=== PATIENT | female | born 1935 | race Caucasian/White ===

== ENCOUNTER → 2016-12-31 | Outpatient (CLI) | payer MEDICARE, OTHER ==
[~2016-12-31] MED LIST: ALPR0.25 PO; AMLO1CAP31 PO; ASP81TEC PO; CATHETER FLUSH 10 ML SYR IV PRN; CHOL100011 PO; CLD600T PO; CLOP75TA PO; DCS100C PO; DICY10CA59 PO; DICY20TA57 PO; FLUT16SP22 NS; HYDR-707 PO; ISM30TCR PO; LEVE500T6 PO; LEVO500T69 PO; LISI1TAB6 PO; LORA10TA7 PO; LVT.05T PO; MECL25TA56 PO; MELA1TAB9 PO; MELO-198 PO; METR500T PO; MTP100TCR PO; NAPR-591 PO; NITR1PAT11 TD; OMEP-10 PO; ONDN4T PO; PANT40VI3 PO; PNT40TEC PO; PNV1TABL77 PO; RANO10003 PO; REGADENOSON 0.4 MG/5 ML SYR (LEXISCAN) IV ONE; SIMV20TA3 PO; SIMV40TA2 PO; SODI1GRA PO; SODIUM CHLORIDE 1 GM PO; SOLI5TAB4 PO; UBID10CA8 PO; ZLP10T PO
[2016-12-31 13:05] VITALS: BP 137/51
[2016-12-31 13:22] VITALS: BP 134/48
--- NOTE | 2017-01-01 06:47 | STRESS TEST ---
DATE OF SERVICE: 12/31/2016 LEXISCAN MYOVIEW STRESS TEST REPORT REFERRING PHYSICIAN: Dr. Longoria. Baseline heart rate is 55. Baseline blood pressure 129/64. Baseline EKG sinus rhythm with no ischemic changes. In summary, the patient was injected with 10.64 mCi of technetium-99 Myoview and the resting images were obtained. Then, the patient received 0.4 mg of Lexiscan followed by 29.3 mCi of technetium-99 Myoview. Throughout the test, there were no EKG changes. The resting and stress images were reviewed and compared in the short axis, horizontal long axis, and vertical long axis views. Review of the images showed fixed defect at the basal to mid inferior wall with no significant ischemia. SSS is 4. SDS is 0. TID value 1.07. On the gated images, the left ventricle appeared to be normal size with normal contractility, calculated ejection fraction 77%. CONCLUSION: 1. The patient tolerated Lexiscan well. 2. Fixed defect at the basal to mid inferior wall with no significant ischemia. 3. Normal left ventricular size with normal contractility, calculated ejection fraction 77%. 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
== END ==
LOC: CARD 10:54
PROVIDERS: ATTEND Internal Medicine Cardiovascular Disease
DX: I35.1 Nonrheumatic aortic (valve) insufficiency (principal); I35.8 Other nonrheumatic aortic valve disorders; I10 Essential (primary) hypertension; I25.119 Atherosclerotic heart disease of native coronary artery with unspecified angina pectoris; Z82.49 Family history of ischemic heart disease and other diseases of the circulatory system
CPT/HCPCS: 78452; 93017

== ENCOUNTER 2019-07-20 08:40 | Day surgery (SDC) | payer MEDICARE, MEDICAID ==
[2019-07-20] VITALS (11 sets, daily range): BP systolic 122–170; BP diastolic 52–87
[~2019-07-20] VITALS: Ht 152 cm; Wt 48.0 kg
[~2019-07-20 08:40] MED LIST changes: -CATHETER FLUSH 10 ML SYR IV PRN; -REGADENOSON 0.4 MG/5 ML SYR (LEXISCAN) IV ONE
[2019-07-20] MEDS ORDERED: NS IV 1000 ML 1,000 ML ONE (08:49)
[2019-07-20] MEDS ORDERED: HEParin (CATH LAB) 2,000 ML IV ONE (08:49)
[2019-07-20] MEDS ORDERED: LIDOCAINE 1% INJ 20 ML 20 ML VIAL ONE (08:49)
--- OUTSIDE RECORDS SUMMARY | 2019-07-20 08:52 | XMS REPORT ---
Author Author Docin Organization Docin Address [address] [address] Care Team Providers Care Casework Supervisor Name Role Phone BALA AUDRA Theodore Unavailable GARCIA, RUDI-JOSE Unavailable Unavailable GARCIA, RUDI-JOSE Unavailable Unavailable GARCIA, RUDI-JOSE Unavailable Unavailable NUZHAT VAZQUEZ Unavailable Unavailable PAONI, CHESTER Unavailable Unavailable PAONI, CHESTER Unavailable Unavailable RAFAELA, BASHAR Unavailable Unavailable RAFAELA, BASHAR Unavailable Unavailable RAFAELA, BASHAR Unavailable Unavailable BROWN, AUDRA Unavailable Unavailable BROWN, AUDRA Unavailable Unavailable BROWN, AUDRA Unavailable Unavailable BALA AGUILAR, AUDRA Unavailable Unavailable BALA AGUILAR, AUDRA Unavailable Unavailable AUDRA LONGORIA MD Unavailable Unavailable RAFAELA, BASHAR Unavailable Unavailable RAFAELA, BASHAR Unavailable Unavailable RAFAELA, BASHAR Unavailable Unavailable EDMONDS, LEE Unavailable Unavailable EDMONDS, LEE Unavailable Unavailable EDMONDS, LEE Unavailable Unavailable SISSY, TELMA Unavailable Unavailable LEISURE, LYNIETA Unavailable Unavailable LEISURE, LYNIETA Unavailable Unavailable BURGOS, JASON Unavailable Unavailable BURGOS, JASON Unavailable Unavailable BURGOS, JASON Unavailable Unavailable MARIANA HOWARD Unavailable Unavailable PAONI, CHESTER Unavailable Unavailable PAONI, CHESTER Unavailable Unavailable Allergies Normalized Allergy Reported Date of Reaction(s) Care Provider Facility Allergy Type classification allergen Allergy Onset Drug Allergy Quinolones ciprofloxacin OTHER, UNKNOWN TAKVITA KI DO Not Available (20 sources.) (antibiotic) (50798) DA (9 Unclassified Fish 07-17-2014 - no information BRETT RODRIGUEZ Not Available sources.) Containing MD ([id number]) Products Drug Allergy Iodine (and iodine OTHER, UNKNOWN ERICH CLEMENTE Not Available (20 sources.) Iodine (35546) containting drugs) Drug Allergy Sulfonamides Sulfonamides UNKNOWN REGINA RUSSO Not Available (22 sources.) (antibiotic) (Antibiotic) (77701) Medications Medication Ingredient Drug Dose Dates Status Sig Sig Care Class(es) (Normalized) (Original) Provid er no Acetaminoph no 03-19-20 no no no no information en information 19 - informat information infor mation name (1 source.) 03-20-20 ion (no 19 phone) 04-06-2018 no no no no name - information inform informat (no 05-06-2018 ation ion phone) no Albuterol beta2-Adren 03-19-20 no no no no information ergic - informat information information name (1 source.) Agonist 03-29-19 ion (no 20 phone) 03-19-2019 no no no no name - information inform informat (no 03-19-2019 ation ion phone) no amLODIPine Dihydropyri 10 mg 03-20-20 no no AMLO DIPINE no information Translation dine - informat information TAB 10 MG name (1 source.) s: [ Calcium 04-18-19 ion (NORVASC) 10 (n o AMLODIPINE Channel 20 10 phone) TAB 10 MG Matias (NORVASC)] 10 mg 04-06-2018 no no AMLODIPI no name - information inform NE TAB (no 05-05-2018 ation 10 MG phone) (NORVASC ) 10 10 no ASA 81MG no 81 mg 03-20-20 no no ASA 81MG n o information ENTERIC information informat information ENTE KEILA name (1 source.) COATED TAB 03-26-19 ion COATED TAB (no 81 MG (BABY 20 81 MG (BABY phone) ASPIRIN EC) ASPIRIN EC) 81 81 no AZITHROMYCI no 500 mg 03-19-20 no no no no information N VIAL INJ information informat informatio n information name (1 source.) 500 MG 03-26-19 ion (no (ZITHROMAX 20 phone) VIAL) no benazepril Angiotensin 20 mg 03-19-20 no no no no information Translation Converting - informat informatio n information name (1 source.) s: [ Enzyme 03-19-20 ion (no BENAZEPRIL Inhibitor 19 phone) TAB 20 MG (LOTENSIN)] 20 mg 04-06-2018 no no no no name - information inform informat (no 04-12-2018 ation ion phone) no Calcium no 04-06-19 no no calcium no information Carbonate information 19 - informat information ca rbonate name (1 source.) 05-05-19 ion (calcium (no 19 carbonate) phone) oral tablet,chewa ble 600 600 no CEFTRIAXONE no 03-19-20 no no no no information PREMIX IV information 19 - informat information in formation name (1 source.) BAG IV 1 03-26-19 ion (no GM/50CC 20 phone) (ROCEPHIN PREMIX IV BAG) no celecoxib Nonsteroida 100 mg 04-07-19 no no Celec oxib no information l 19 - informat information oral capsule name (1 source.) Anti-inflam 04-16-19 ion 100mg (no matory Drug 19 (Celebrex) phone) 100 100 no CoQ-10 no 03-20-20 no no CoQ-10 no information (coenzyme information 19 - informat information (c oenzyme name (1 source.) Q10) oral 03-26-19 ion Q10) oral (no capsule 20 capsule 300 phone) 300 03-20-2019 no no no no name - information inform informat (no 03-26-2019 ation ion phone) 04-06-2018 no no CoQ-10 no name - information inform (coenzym (no 05-05-2018 ation e Q10) phone) oral capsule 100 100 no Cranberry Non-Standar 04-06-19 no no Azo no information preparation dized Food 19 - informat information C ranberry name (1 source.) Allergenic 05-05-19 ion (cranberry (no Extract, 19 fruit phone) Non-Standar concentrate) dized Plant oral Allergenic tablet,chewa Extract ble 250 250 no FLUoxetine Serotonin 03-19-20 no no fluoxetine n o information Reuptake 19 - informat information (fluoxetine ) name (1 source.) Inhibitor 04-17-19 ion oral capsule (no 20 10 10 phone) 04-06-2018 no no fluoxeti no name - information inform ne (no 05-05-2018 ation (fluoxet phone) ine) oral capsule 10 10 no Furosemide Loop 20 mg 04-07-19 no no FUROSEMID E no information Diuretic 19 - informat information TAB 20 MG name (1 source.) 04-13-19 ion (LASIX) 20 (no 19 20 phone) no guaiFENesin no 600 mg 03-19-20 no no no no information information 19 - informat information informat ion name (1 source.) 03-26-19 ion (no 20 phone) no Lactated no 01-31-20 no no no no information Ringer's information 17 - informat information inf ormation name (1 source.) Solution 02-07-20 ion (no 17 phone) no LACTOBACILL no 03-19-20 no no no no information US BULGARIS information - informat informati on information name (1 source.) TAB 03-29-19 ion (no (LACTINEX 20 phone) BULGARIS) no Melatonin no 3 mg 03-19-20 no no MELATONIN no information Translation information - informat information TAB 3 MG name (1 source.) s: [ 03-25-19 ion (MELATONIN) (no MELATONIN 20 3 3 phone) TAB 3 MG (MELATONIN) ] 3 mg 03-19-2019 no no no no name - information inform informat (no 03-25-2019 ation ion phone) 3 mg 04-06-2018 no no no no name - information inform informat (no 05-06-2018 ation ion phone) no METOPROLOL- no 50 mg 03-19-20 no no METOPROL OL-X no information XL TAB 50 information 19 - informat information L TAB 50 MG name (1 source.) MG (TOPROL 03-26-19 ion (TOPROL XL) (no XL) 20 50 50 phone) no METOPROLOL- no 50 mg 04-07-19 no no METOPROL OL-X no information XL TAB 50 information - informat information L TAB 50 MG name (1 source.) MG (TOPROL 04-13-19 ion (TOPROL XL) (no XL) 19 50 50 phone) no Normal no 03-19-20 no no no no information saline information - informat information infor mation name (1 source.) Translation 04-03-19 ion (no s: [ NORMAL 20 phone) SALINE 1000CC IV BAG INJ 0.9 % (NS 1000CC IV BAG)] 03-19-2019 no no no no name - information inform informat (no 03-26-2019 ation ion phone) 04-06-2018 no no no no name - information inform informat (no 04-21-2018 ation ion phone) no ONDANSETRON no 03-19-20 no no no no information VIAL INJ 4 information - informat informatio n information name (1 source.) MG/2CC 12-28-20 ion (no (ZOFRAN 2CC 19 phone) VIAL) 04-06-2018 no no no no name - information inform informat (no 04-13-2018 ation ion phone) no ONDANSETRON no 04-05-19 no no no no information VIAL INJ 4 information 19 - informat informatio n information name (1 source.) MG/2CC 04-05-19 ion (no (ZOFRAN 2CC 19 phone) VIAL) no oxybutynin Cholinergic 5 mg 03-19-20 no no OXYB UTYNIN no information Muscarinic 19 - informat information TAB 5 MG name (1 source.) Antagonist 03-26-19 ion (DITROPAN) 5 (no 20 5 phone) 5 mg 04-06-2018 no no OXYBUTYN no name - information inform IN TAB 5 (no 05-05-2018 ation MG phone) (DITROPA N) 5 5 no Potassium no 10 mEq 04-06-19 no no POTASSIUM no information Chloride information - informat information CHL ORIDE TAB name (1 source.) 05-05-19 ion 10 MEQ (no 19 (K-DUR) 10 phone) 10 no no 04-06-19 no no no information vits-iron information - informat information vi ts-iron name (1 source.) fum-folic- 05-05-19 ion fum-folic- (no oral tablet 19 oral tablet phone) (Prenate) (Prenate) 1 1 no VITAMIN D-3 no 1000 04-06-19 no no VITAMIN D-3 no information TAB 1000 information [IU] - informat informati on TAB 1000 name (1 source.) UNITS 05-05-19 ion UNITS (no (VITAMIN 19 (VITAMIN phone) D-3) D-3) 1999 1999 Problems Active Problems Problem Normalized Date of Normalized Normalized Provider Fac ility Classification Problem(s) Problem Problem Problem Sta tus Onset/Resoluti Duration on Other Abnormal 06-20-2019 - Episodic Active [facility] nutritional; weight loss [facility] of endocrine; and [place] metabolic [facility] (36607) disorders (20 sources.) Adjustment Adjustment Chronic Active [facility] disorders (10 disorder with [facility] of sources.) depressed mood [place] Translations: [facility] ([id number]) [ ADJUSTMENT DISORDER WITH DEPRESSED MOOD] Anxiety Anxiety state, Chronic Active BENJAMIN RODRIGUEZ No t Available disorders (14 unspecified , (92395) sources.) Translations: [ GENERALIZED ANXIETY DISORDER, GENERALIZED ANXIETY DISORDER] 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 ALMA DELIA Sams JENNIFER Not Available atherosclerjarrell amaro heart , (60734) s and other disease of heart disease [place] (26 sources.) coronary artery with unspecified angina pectoris Translations: [ CORONARY ATHEROSCLEROSI S OF [place] CORON, ATHEROSCLEROTI C HEART DISEASE OF [place] CORONARY ARTERY WITHOUT ANGINA PECTORIS, CORONARY ATHEROSCLEROSI S OF [place] CORONARY ARTERY, ANGINA PECTORIS, UNSPECIFIED] Cardiac Bradycardia, 06-20-2019 - Episodic Active [facility] dysrhythmias unspecified [facility] of (20 sources.) [facility] (88620) Nonspecific Chest pain, 06-20-2019 - Episodic Active [facility] chest pain (24 unspecified [facility] of sources.) Translations: [place] [ UNSPECIFIED [facility] (47890) CHEST PAIN, OTHER CHEST PAIN] Other Constipation, Episodic Active [facility] ital gastrointestin unspecified [facility] of al disorders [place] (2 sources.) [facility] (83236) Allergic Diarrhea no information Active [facility] ital reactions (18 Translations: [facility] of sources.) [ ALLERGIC AND [place] DIETETIC [facility] (71709) GASTROENTERITI S AND COLITIS, DIARRHEA] Other Diarrhea, 06-20-2019 - Episodic Active [facility] gastrointestin unspecified [facility] of al disorders [place] (24 sources.) [facility] (48983) Diverticulosis Diverticulitis 06-20-2019 - Chronic Active [facility] and of colon [facility] of diverticulitis (without [place] (25 sources.) mention of [facility] (30706) hemorrhage) Translations: [ DIVERTICULITIS OF INTESTINE, PART UNSPECIFIED, WITHOUT PERFORATION OR ABSCESS WITHOUT BLEEDING] Genitourinary Dysuria Episodic Active TELMA Oteroi lalo symptoms and Translations: [facility] of ill-defined [ DYSURIA] [place] conditions ([place] ([address]) sources.) Other Erythema 06-20-2019 - Episodic Active [facility] inflammatory intertrigo [facility] of condition of [place] skin (33 [place] (48440) sources.) Esophageal Esophageal 06-20-2019 - Chronic [facility] Not Available disorders (22 reflux , (37620) sources.) Translations: [ GASTRO-ESOPHAG EAL REFLUX DISEASE WITH ESOPHAGITIS] Essential Essential 06-20-2019 - Chronic Active [facility] Not Available hypertension (primary) , (46859) (22 sources.) hypertension Translations: [ HYPERTENSION NOS, MALIGNANT ESSENTIAL HYPERTENSION] Other Fecal urgency 06-20-2019 - Episodic Active [facility] gastrointestin [facility] of al disorders [place] (25 sources.) [facility] (54460) Other Fecal urgency Episodic Active [facility] ital gastrointestin [facility] of al disorders [place] (5 sources.) [facility] (97038) Other Full Episodic Active [facility] gastrointestin incontinence [facility] of al disorders of feces [place] (2 sources.) [facility] (14962) Other Functional 06-20-2019 - Episodic Active [facility] gastrointestin diarrhea [facility] of al disorders [place] (25 sources.) [facility] (48399) Other Functional Episodic Active [facility] gastrointestin diarrhea [facility] of al disorders [place] (5 sources.) [facility] (47443) Disorders of Hyperlipidemia Chronic Active [facility] lipid , unspecified [facility] of metabolism (12 Translations: [place] sources.) [ OTHER AND [facility] (24931) UNSPECIFIED HYPERLIPIDEMIA ] Fluid and Hyposmolality 06-20-2019 - Episodic Active [facility] electrolyte and/or [facility] of disorders (20 hyponatremia [place] sources.) Translations: [facility] (24188) [ HYPOVOLEMIA, HYPO-OSMOLALIT Y AND HYPONATREMIA , HYPOVOLEMIA , HYPOSMOLALITY AND/OR HYPONATREMIA, HYPOSMOLALITY AND/OR HYPONATREMIA] Intestinal Infectious Episodic Active [facility] Hospit al infection (11 gastroenteriti [facility] of sources.) s and colitis, [place] unspecified [facility] (49929) 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 [facility] of al disorders [place] (9 sources.) [facility] (87385) 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 [facility] of al disorders with diarrhea [place] (29 sources.) County ([address]) Abdominal pain Left lower 06-20-2019 - Episodic Active [facility] (28 sources.) quadrant pain [facility] of Translations: [place] [ ABDOMINAL [place] (59976) PAIN, LEFT LOWER QUADRANT, ABDOMINAL PAIN, LEFT LOWER QUADRANT] Spondylosis; Low back pain 06-20-2019 - Episodic Active NUZHAT CAALES Not Available intervertebral Translations: (71039) disc [ LUMBAGO, disorders; DORSALGIA, other back UNSPECIFIED] problems (29 sources.) 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 [facility] (20 sources.) depressive [facility] of disorder, [place] single [facility] (75027) episode, unspecified Translations: [ DEPRESSIVE DISORDER, NOT ELSEWHERE CLASSIFIED] Nausea and Nausea Episodic Active [facility] vomiting (18 Translations: [place] [facility] of sources.) [ NAUSEA [place] ALONE, NAUSEA [facility] (22054) ALONE] Noninfectious Noninfective Episodic Active [facility] ospital gastroenteriti gastroenteriti [facility] of s (17 s and colitis, [place] sources.) unspecified [facility] (29134) Translations: [ OTHER AND UNSPECIFIED NONINFECTIOUS GASTROENTERITI S AND COLITIS] Heart valve Nonrheumatic 06-20-2019 - Chronic Active [facility] disorders (24 aortic (valve) [facility] of sources.) insufficiency [place] Translations: [facility] (42945) [ OTHER NONRHEUMATIC AORTIC VALVE DISORDER, AORTIC VALVE DISORDERS, NONRHEUMATIC AORTIC VALVE DISORDER, UNSPECIFIED, NONRHEUMATIC AORTIC (VALVE) INSUFFICIENCY] Malaise and Other fatigue 06-20-2019 - Episodic Active [facility] fatigue (20 Translations: [facility] of sources.) [ OTHER [place] MALAISE AND [facility] (35523) FATIGUE, OTHER MALAISE AND FATIGUE] Other Other Episodic Active [facility] inflammatory specified [facility] of condition of erythematous [place] skin (17 conditions County (19921) sources.) Other Pain in joint, Episodic Active [facility] pital non-traumatic pelvic region [facility] of joint and thigh [place] disorders (6 [place] (23362) sources.) Other Pain in left Episodic Active [facility] non-traumatic hip [facility] of joint [place] disorders ([place] (74573) sources.) Parkinson`s Parkinson's 06-20-2019 - Chronic Active [facility] disease (23 disease [facility] of sources.) Translations: [place] [ PARALYSIS [facility] (10419) AGITANS] Pneumonia Pneumonia, Episodic Active [facility] (except that unspecified [facility] of caused by organism [place] tuberculosis Translations: County (20227) or sexually [ PNEUMONIA, transmitted ORGANISM disease) (22 UNSPECIFIED] sources.) Chronic ulcer Pressure ulcer 06-20-2019 - Chronic Active [facility] of skin (20 of sacral [facility] of sources.) region, [place] unspecified [facility] (32677) stage Translations: [ PRESSURE ULCER, LOWER BACK] Pulmonary Primary Chronic Active [facility] heart disease pulmonary [facility] of (12 sources.) hypertension [place] Translations: [facility] (10744) [ PRIMARY PULMONARY HYPERTENSION] 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, [facility] of disorders (18 bilateral [place] sources.) [facility] (61192) 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, [facility] of disorders (6 bilateral [place] sources.) [facility] (02669) Thyroid Unspecified 06-20-2019 - Chronic Active [facility] Not Available disorders (34 MD shandra (54871) sources.) hypothyroidism Translations: [ HYPOTHYROIDISM , UNSPECIFIED, UNSPECIFIED HYPOTHYROIDISM ] Delirium Unspecified 06-20-2019 - Chronic Active [facility] dementia and dementia with [facility] of amnestic and behavioral [place] other disturbance [facility] (11295) cognitive Translations: disorders (23 [ DEMENTIA, sources.) UNSPECIFIED, IN CONDITIONS CLASSIFIED ELSEWHERE WITH BEHAVIORAL DISTURBANCE] Osteoarthritis Unspecified 06-20-2019 - Chronic Active [facility] (20 sources.) osteoarthritis [facility] of , unspecified [place] site [facility] (84733) Translations: [ OSTEOARTHROSIS , LOCALIZED, NOT SPECIFIED WHETHER PRIMARY OR SECONDARY, INVOLVING UNSPECIFIED SITE] Past or Other Problems Problem Normalized Date of Normalized Normalized Provider Fac ility Classification Problem(s) Problem Problem Problem Sta tus Onset/Resoluti Duration on Deficiency and Anemia, Episodic Completed [facility] Not Available other anemia unspecified , (19111) (2 sources.) Unclassified Angina no information no information [facility] (6 sources.) pectoris [facility] (81345) Other lower Cough Episodic Completed [facility] Not Av ailable respiratory , (02390) disease (3 sources.) Unclassified Family history Episodic Completed no name no i nformation (4 sources.) of ischemic heart disease and other diseases of the circulatory system Epilepsy; Other Episodic Completed AUDRA BROWN Not Avail able convulsions (1 convulsions , (85860) source.) Other injuries Other injury Episodic Completed NUZHAT VAZQUEZ No t Available and conditions of other sites (98981) due to of trunk external causes (4 sources.) Other lower Shortness of Episodic Completed [facility] No t Available respiratory breath , (05699) disease (2 sources.) Other injuries Unspecified Episodic Completed NUZHAT VAZQUEZ Not Available and conditions injury of (55630) due to lower back, external initial causes (4 encounter sources.) Unclassified no information 06-20-2019 - no information no infor [facility] (8 sources.) [facility] of [facility] (59055) Procedures No Information Immunizations No Information Results Test Name Value Interpretation Reference Range Date Time Fa cility (Normalized) (Normalized) (Medline Reference) No panel information on 2019-06-17 no information Chart note added (no code) [facility] (28938) No panel information on 2019-06-15 no information Chart note added (no code) [facility] (07661) No panel information on 2019-06-13 no information Chart note added (no code) [facility] (22854) No panel information on 2019-06-10 no information Chart note added (no code) [facility] (16823) No panel information on 2019-06-08 no information Chart note added (no code) [facility] (43539) No panel information on 2019-06-06 no information Chart note added (no code) [facility] (00975) No panel information on 2019-06-03 no information Chart note added (no code) [facility] (04938) no information Chart note added (no code) [facility] (07431) No panel information on 2019-05-26 no information Chart note (no code) [facility] updated (52104) No panel information on 2019-05-25 no information Chart note added (no code) [facility] (62796) no information Chart note added (no code) [facility] (28387) No panel information on 2019-05-24 no information Chart note added (no code) [facility] (37526) No panel information on 2019-05-23 no information Chart note added (no code) [facility] (95766) No panel information on 2019-05-20 no information Chart note added (no code) [facility] (55290) No panel information on 2019-05-19 no information Chart note added (no code) [facility] (40341) no information Chart note added (no code) [facility] (77321) No panel information on 2019-05-18 no information Chart note added (no code) [facility] (02202) No panel information on 2019-05-17 no information Chart note added (no code) [facility] (97266) No panel information on 2019-05-16 no information Chart note added (no code) [facility] (13332) no information Chart note added (no code) [facility] (94565) No panel information on 2019-05-10 no information Chart note added (no code) [facility] (57541) No panel information on 2019-05-09 no information Chart note added (no code) [facility] (86599) no information Chart note added (no code) [facility] (70296) No panel information on 2019-05-03 no information Chart note added (no code) [facility] (73135) No panel information on 2019-05-02 no information Chart note added (no code) [facility] (84687) No panel information on 2019-04-29 no information Chart note added (no code) [facility] (24534) No panel information on 2019-04-22 no information Chart note added (no code) [facility] (78922) No panel information on 2019-04-21 no information Chart note added (no code) [facility] (22621) No panel information on 2019-04-20 no information Chart note added (no code) [facility] (71208) No panel information on 2019-04-19 no information Chart note added (no code) [facility] (36955) No panel information on 2019-04-18 no information Chart note added (no code) [facility] (61923) no information Chart note added (no code) [facility] (61736) No panel information on 2019-04-15 no information Chart note added (no code) [facility] (30498) No panel information on 2019-04-14 no information Chart note added (no code) [facility] (20784) no information Chart note added (no code) [facility] (41439) No panel information on 2019-04-11 no information Chart note added (no code) [facility] (86199) no information Chart note added (no code) [facility] (96701) No panel information on 2019-04-08 no information Chart note added (no code) [facility] (53944) No panel information on 2019-04-05 no information Chart note added (no code) [facility] (73784) no information Chart note (no code) [facility] updated (06946) No panel information on 2019-04-04 no information Chart note added (no code) [facility] (47185) no information Chart note added (no code) [facility] (58228) No panel information on 2019-04-01 no information Chart note added (no code) [facility] ([id number]) no information Chart note added (no code) [facility] ([id number]) No panel information on 2019-03-31 no information Chart note added (no code) [facility] ([id number]) No panel information on 2019-03-30 no information Chart note added (no code) [facility] ([id number]) No panel information on 2019-03-29 no information Chart note added (no code) [facility] ([id number]) No panel information on 2019-03-28 no information Chart note added (no code) [facility] ([id number]) no information Chart note added (no code) [facility] ([id number]) No panel information on 2019-03-26 Levetiracetam 18.2 ug/mL (no code) 12 - 46 ug/mL 03-26-2019 [facility] ([id number]) [Mass/Vol] 08:15-0500 No panel information on 2019-03-25 Basophils (Bld) 0.0 10*3/uL (no code) 0 - 0.3 10*3/uL 03-25-2019 Hospital [#/Vol] 09:080500 [facility] ([id number]) Basophils/100 0.20 % (no code) 0.5 - 1 % 03-25-2019 Hospital WBC (Bld) 09:08 [facility] ([id number]) Eosinophils 0.2 10*3/uL (no code) 0.05 - 0.5 03-25-2019 Hospita l (Bld) [#/Vol] 10*3/uL 09:08 [facility] ([id number]) Eosinophils/100 0.9 % (no code) 1 - 4 % 03-25-2019 Hospit al WBC (Bld) 09:080 [facility] ([id number]) Erythrocyte 12.1 % (no code) 11.6 - 14.6 % 03-25-2019 Hospit al distribution 09:08 [facility] width (RBC) [facility] [Ratio] ([id number]) Hematocrit (Bld) 33.5 % (L) 36.1 - 50.3 % 03-25-2019 H ospital [Volume 09:080500 [facility] fraction] [facility] ([id number]) Hemoglobin (Bld) 11.3 g/dL (L) 12.1 - 17.2 g/dL 03-25-2019 Hospital [Mass/Vol] 09:080 [facility] ([id number]) Lymphocytes 2.17 10*3/uL (no code) 0.9 - 2.9 03-25-2019 Hospita l (Bld) [#/Vol] 10*3/uL 09:080 [facility] ([id number]) Lymphocytes/100 12.8 % (no code) 20 - 40 % 03-25-2019 Hospit al WBC (Bld) 09:08 [facility] ([id number]) MCH (RBC) 33.8 pg (H) 27 - 31 pg 03-25-2019 Hospital [Entitic mass] 09:08 [facility] ([id number]) MCHC (RBC) 33.7 g/dL (no code) 32 - 36 g/dL 03-25-2019 Hospital [Mass/Vol] 09:08 [facility] ([id number]) MCV (RBC) 100.3 fL (H) 80 - 100 fL 03-25-2019 Hospital [Entitic vol] 09:08 [facility] ([id number]) Monocytes (Bld) 1.2 10*3/uL (H) 0.3 - 0.9 03-25-2019 Hosp ital [#/Vol] 10*3/uL 09:08 [facility] (33492) Monocytes/100 7.1 % (no code) 2 - 8 % 03-25-2019 Hospital WBC (Bld) 09:08 [facility] ([id number]) Neutrophils 13.44 10*3/uL (H) 1.7 - 7 10*3/uL 03-25-2019 Hospital (Bld) [#/Vol] 09:080 [facility] ([id number]) Neutrophils/100 79.0 % (no code) 40 - 60 % 03-25-2019 Hospit al WBC (Bld) 09:080 [facility] (95553) Platelet mean 10.2 fL (H) 7.2 - 11.7 fL 03-25-2019 Hosp ital volume (Bld) 09:08 [facility] [Entitic vol] [facility] ([id number]) Platelets (Bld) 483 10*3/uL (H) 150 - 450 03-25-2019 Hosp ital [#/Vol] 10*3/uL 09:08 [facility] ([id number]) RBC (Bld) 3.34 10*6/uL (L) 4.2 - 6.1 03-25-2019 Hospital [#/Vol] 10*6/uL 09: [facility] ([id number]) WBC (Bld) 17.01 10*3/uL (H) 3.5 - 10.5 03-25-2019 Hospita l [#/Vol] 10*3/uL 09: [facility] ([id number]) no information Chart note added (no code) [facility] ([id number]) no information Chart note added (no code) [facility] (54961) No panel information on 2019-03-22 no information Chart note added (no code) [facility] ([id number]) no information Chart note added (no code) [facility] ([id number]) No panel information on 2019-03-21 no information Chart note added (no code) [facility] ([id number]) No panel information on 2019-03-20 Albumin BCG dye 3.4 (L) 03-20-2019 Hospital [Mass/Vol] 02: [facility] ([id number]) ALP [Catalytic 69 U/L (no code) 44 - 147 U/L 03-20-2019 Hosp ital activity/Vol] 02: [facility] ([id number]) ALT [Catalytic 12 U/L (no code) 4 - 40 U/L 03-20-2019 Hospit al activity/Vol] 02: [facility] ([id number]) Anion gap 16 mmol/L (H) 3 - 11 mmol/L 03-20-2019 Hospital [Moles/Vol] 02: [facility] ([id number]) AST [Catalytic 25 U/L (no code) 10 - 34 U/L 03-20-2019 Hospi lalo activity/Vol] 02: [facility] ([id number]) Basophils (Bld) 0.0 10*3/uL (no code) 0 - 0.3 10*3/uL 03-20-2019 Hospital [#/Vol] 02: [facility] ([id number]) Basophils/100 0.20 % (no code) 0.5 - 1 % 03-20-2019 Hospital WBC (Bld) 02: [facility] (22266) Bilirubin 0.3 mg/dL (no code) 0.1 - 1.2 mg/dL 03-20-2019 Hospit al [Mass/Vol] 02: [facility] (24495) Calcium 8.6 mg/dL (no code) 8.5 - 10.2 mg/dL 03-20-2019 Hospi lalo [Mass/Vol] 02: [facility] (69905) Chloride 98 mmol/L (no code) 95 - 106 mmol/L 03-20-2019 Hospit al [Moles/Vol] 02: [facility] (39868) Creatinine 0.71 mg/dL (no code) 03-20-2019 Hospital [Mass/Vol] 02: [facility] (81983) Eosinophils 0.1 10*3/uL (no code) 0.05 - 0.5 03-20-2019 Hospita l (Bld) [#/Vol] 10*3/uL 02: [facility] (95584) Eosinophils/100 0.4 % (no code) 1 - 4 % 03-20-2019 Hospit al WBC (Bld) 02: [facility] (85439) Erythrocyte 11.7 % (no code) 11.6 - 14.6 % 03-20-2019 Hospit al distribution 02: [facility] width (RBC) [facility] [Ratio] ([id number]) FINAL CULTURE Moderate Gram (no code) 03-20-2019 Hospital RESULTS Positive Mixed 01: [facility] [place] NO Pathogens ([id number]) Isolated No Further Workup done GFR/1.73 sq 79 (no code) 90 - 120 03-20-2019 Hospital M.predicted MDRD mL/min/{1.73_m2} mL/min/{1.73_m2} 02: [facility] (S/P/Bld) [Vol [facility] rate/Area] ([id number]) Globulin (S) 2.5 g/dL (no code) 2 - 3.5 g/dL 03-20-2019 Hospit al [Mass/Vol] 02: [facility] (32355) Glucose 117 mg/dL (H) 60 - 125 mg/dL 03-20-2019 Hospita l [Mass/Vol] 02:30050 [facility] (21205) HCO3 (P) 22 (no code) 03-20-2019 Hospital [Moles/Vol] 02: [facility] ([id number]) Hematocrit (Bld) 30.0 % (L) 36.1 - 50.3 % 03-20-2019 H ospital [Volume 02: [facility] fraction] [facility] (61948) Hemoglobin (Bld) 10.1 g/dL (L) 12.1 - 17.2 g/dL 03-20-2019 Hospital [Mass/Vol] 02:30050 [facility] ([id number]) Lymphocytes 2.86 10*3/uL (no code) 0.9 - 2.9 03-20-2019 Hospita l (Bld) [#/Vol] 10*3/uL 02:30050 [facility] (78887) Lymphocytes/100 11.9 % (no code) 20 - 40 % 03-20-2019 Hospit al WBC (Bld) 02:30 [facility] ([id number]) MCH (RBC) 33.8 pg (H) 27 - 31 pg 03-20-2019 Hospital [Entitic mass] 02: [facility] (70856) MCHC (RBC) 33.7 g/dL (no code) 32 - 36 g/dL 03-20-2019 Hospital [Mass/Vol] 02:300500 [facility] ([id number]) MCV (RBC) 100.3 fL (H) 80 - 100 fL 03-20-2019 Hospital [Entitic vol] 02:300500 [facility] ([id number]) MEDIA PLATED Setup at 06:59 (no code) 03-20-2019 Hospital on 03/20/2019 01:55-0500 [facility] ([id number]) Monocytes (Bld) 1.9 10*3/uL (H) 0.3 - 0.9 03-20-2019 Hosp ital [#/Vol] 10*3/uL 02: [facility] (80835) Monocytes/100 8.1 % (no code) 2 - 8 % 03-20-2019 Hospital WBC (Bld) 02: [facility] (74903) Neutrophils 19.04 10*3/uL (H) 1.7 - 7 10*3/uL 03-20-2019 Hospital (Bld) [#/Vol] 02: [facility] (33772) Neutrophils/100 79.4 % (no code) 40 - 60 % 03-20-2019 Hospit al WBC (Bld) 02: [facility] (91695) Osmolality Calc 274 (L) 03-20-2019 Hospital [Osmolality] 02: [facility] ([id number]) Platelet mean 10.7 fL (H) 7.2 - 11.7 fL 03-20-2019 Hosp ital volume (Bld) 02: [facility] [Entitic vol] [facility] (34446) Platelets (Bld) 405 10*3/uL (H) 150 - 450 03-20-2019 Hosp ital [#/Vol] 10*3/uL 02: [facility] (70323) Potassium 3.7 mmol/L (no code) 3.7 - 5.2 mmol/L 03-20-2019 Hosp ital [Moles/Vol] 02: [facility] (83541) PRELIM CULTURE Moderate Gram (no code) 03-20-2019 Hospital RESULTS Positive Mixed 01: [facility] No Pathogen ([id number]) Isolated at 24 hours Protein 5.9 g/dL (L) 6.4 - 8.3 g/dL 03-20-2019 Hospita l [Mass/Vol] 02: [facility] (89321) RBC (Bld) 2.99 10*6/uL (L) 4.2 - 6.1 03-20-2019 Hospital [#/Vol] 10*6/uL 02: [facility] (06526) Sodium 132 mmol/L (L) 135 - 145 mmol/L 03-20-2019 Hosp ital [Moles/Vol] 02: [facility] (63338) Urea nitrogen 11 mg/dL (no code) 7 - 20 mg/dL 03-20-2019 Hospi lalo [Mass/Vol] 02: [facility] (53486) WBC (Bld) 23.98 10*3/uL (HH) 3.5 - 10.5 03-20-2019 Hospita l [#/Vol] 10*3/uL 02: [facility] (98920) No panel information on 2019-03-19 Albumin BCG dye 3.5 (L) 03-19-2019 Hospital [Mass/Vol] 10: [facility] (49278) ALP [Catalytic 75 U/L (no code) 44 - 147 U/L 03-19-2019 Hosp ital activity/Vol] 10: [facility] (37047) ALT [Catalytic 13 U/L (no code) 4 - 40 U/L 03-19-2019 Hospit al activity/Vol] 10: [facility] (61624) Anion gap 17 mmol/L (H) 3 - 11 mmol/L 03-19-2019 Hospital [Moles/Vol] 10: [facility] (56411) AST [Catalytic 27 U/L (no code) 10 - 34 U/L 03-19-2019 Hospi lalo activity/Vol] 10: [facility] (15911) Bacteria LM Ql no information (no code) 03-19-2019 Hospital (Urine sed) 11: [facility] (77382) Basophils (Bld) 0.0 10*3/uL (no code) 0 - 0.3 10*3/uL 03-19-2019 Hospital [#/Vol] 10: [facility] (70353) Basophils/100 0.10 % (no code) 0.5 - 1 % 03-19-2019 Hospital WBC (Bld) 10: [facility] (66813) Bilirubin 0.4 mg/dL (no code) 0.1 - 1.2 mg/dL 03-19-2019 Hospit al [Mass/Vol] 10: [facility] (53159) Bilirubin N/A (A) 03-19-2019 Hospital Confirm Ql (U) 11: [facility] (22065) Bilirubin Ql (U) no information (no code) 03-19-2019 Hospit al 11: [facility] (55955) Calcium 9.2 mg/dL (no code) 8.5 - 10.2 mg/dL 03-19-2019 Hospi lalo [Mass/Vol] 10: [facility] (62071) Casts LM Ql Hyaline (no code) 03-19-2019 Hospital (Urine sed) 11: [facility] (59392) Chloride 100 mmol/L (no code) 95 - 106 mmol/L 03-19-2019 Hospi lalo [Moles/Vol] 10: [facility] (68306) Clarity (U) Clear (no code) 03-19-2019 Hospital 11: [facility] (48804) Color (U) Yellow (no code) 03-19-2019 Hospital 11: [facility] (18950) Creatinine 0.74 mg/dL (no code) 03-19-2019 Hospital [Mass/Vol] 10: [facility] (25168) CULTURE SOURCE RT WRIST (no code) 03-19-2019 Hospital 10: [facility] (10889) CULTURE SOURCE LT FOREARM (no code) 03-19-2019 Hospital 10: [facility] (23366) Eosinophils 0.1 10*3/uL (no code) 0.05 - 0.5 03-19-2019 Hospita l (Bld) [#/Vol] 10*3/uL 10: [facility] (45059) Eosinophils/100 0.7 % (no code) 1 - 4 % 03-19-2019 Hospit al WBC (Bld) 10: [facility] (28632) Erythrocyte 11.5 % (L) 11.6 - 14.6 % 03-19-2019 Hospit al distribution 10: [facility] width (RBC) [facility] [Ratio] ([id number]) FINAL CULTURE no information (no code) 03-19-2019 Hospital RESULTS 10: [facility] (87439) FLUAV and FLUBV no information (no code) 03-19-2019 Hospita l Ag IA.rapid Nom 10: [facility] (Nose) [facility] (36321) GFR/1.73 sq 75 (no code) 90 - 120 03-19-2019 Hospital M.predicted MDRD mL/min/{1.73_m2} mL/min/{1.73_m2} 10: [facility] (S/P/Bld) [Vol [facility] rate/Area] ([id number]) Globulin (S) 3.1 g/dL (no code) 2 - 3.5 g/dL 03-19-2019 Hospit al [Mass/Vol] 10: [facility] (01614) Glucose 117 mg/dL (H) 60 - 125 mg/dL 03-19-2019 Hospita l [Mass/Vol] 10: [facility] (75274) Glucose Test no information (no code) 03-19-2019 Hospital strip (U) 11: [facility] [Mass/Vol] [facility] (85531) HCO3 (P) 22 (no code) 03-19-2019 Hospital [Moles/Vol] 10: [facility] (88639) Hematocrit (Bld) 32.8 % (L) 36.1 - 50.3 % 03-19-2019 H ospital [Volume 10: [facility] fraction] [facility] (38215) Hemoglobin (Bld) 11.2 g/dL (L) 12.1 - 17.2 g/dL 03-19-2019 Hospital [Mass/Vol] 10: [facility] (41772) Hemoglobin Ql no information (no code) 03-19-2019 Hospital (U) 11: [facility] (30520) Ketones (U) no information (no code) 03-19-2019 Hospital [Mass/Vol] 11: [facility] (27284) Lactate 11.5 (no code) 03-19-2019 Hospital [Mass/Vol] 10: [facility] (07816) Leukocyte no information (no code) 03-19-2019 Hospital esterase Test 11: [facility] strip Ql (U) [facility] (11649) LEVETIRACETAM, S 18.2 (no code) 03-19-2019 Hospital 10: [facility] (72658) Lymphocytes 1.91 10*3/uL (no code) 0.9 - 2.9 03-19-2019 Hospita l (Bld) [#/Vol] 10*3/uL 10: [facility] (02195) Lymphocytes/100 10.0 % (no code) 20 - 40 % 03-19-2019 Hospit al WBC (Bld) 10: [facility] (06229) M. pneumoniae Ab no information (no code) 03-19-2019 Hospit al Ql (S) 10: [facility] (01794) MCH (RBC) 33.7 pg (H) 27 - 31 pg 03-19-2019 Hospital [Entitic mass] 10: [facility] (40424) MCHC (RBC) 34.1 g/dL (no code) 32 - 36 g/dL 03-19-2019 Hospital [Mass/Vol] 10: [facility] (81416) MCV (RBC) 98.8 fL (H) 80 - 100 fL 03-19-2019 Hospital [Entitic vol] 10: [facility] (77356) Monocytes (Bld) 1.5 10*3/uL (H) 0.3 - 0.9 03-19-2019 Hosp ital [#/Vol] 10*3/uL 10: [facility] (01013) Monocytes/100 8.0 % (no code) 2 - 8 % 03-19-2019 Hospital WBC (Bld) 10: [facility] (65636) Neutrophils 15.58 10*3/uL (H) 1.7 - 7 10*3/uL 03-19-2019 Hospital (Bld) [#/Vol] 10: [facility] (00115) Neutrophils/100 81.2 % (H) 40 - 60 % 03-19-2019 Hospit al WBC (Bld) 10: [facility] (94852) Nitrite Ql (U) no information (no code) 03-19-2019 Hospital 11: [facility] (45276) Osmolality Calc 280 (no code) 03-19-2019 Hospital [Osmolality] 10: [facility] (78027) pH (U) 6.0 [pH] (no code) 4.6 - 8 [pH] 03-19-2019 Hospital 11: [facility] (14340) Platelet mean 10.6 fL (H) 7.2 - 11.7 fL 03-19-2019 Hosp ital volume (Bld) 10: [facility] [Entitic vol] [facility] (55044) Platelets (Bld) 399 10*3/uL (no code) 150 - 450 03-19-2019 Hosp ital [#/Vol] 10*3/uL 10: [facility] (09975) Potassium 3.7 mmol/L (no code) 3.7 - 5.2 mmol/L 03-19-2019 Hosp ital [Moles/Vol] 10: [facility] (42068) PRELIM CULTURE no information (no code) 03-19-2019 Hospital RESULTS 10: [facility] (75834) Protein (U) no information (no code) 0 - 20 mg/dL 03-19-2019 Ho spital [Mass/Vol] 11: [facility] (42692) Protein 6.6 g/dL (no code) 6.4 - 8.3 g/dL 03-19-2019 Hospita l [Mass/Vol] 10: [facility] (82112) RBC (Bld) 3.32 10*6/uL (L) 4.2 - 6.1 03-19-2019 Hospital [#/Vol] 10*6/uL 10: [facility] (49763) RBC LM.HPF 2-5/HPF (A) 03-19-2019 Hospital (Urine sed) 11: [facility] [#/Area] [facility] (33010) Sodium 135 mmol/L (no code) 135 - 145 mmol/L 03-19-2019 Hosp ital [Moles/Vol] 10: [facility] (86846) Specific gravity 1.020 (no code) 03-19-2019 Hospital (U) [Rel 11: [facility] density] [facility] (51905) Urea nitrogen 11 mg/dL (no code) 7 - 20 mg/dL 03-19-2019 Hospi lalo [Mass/Vol] 10: [facility] (78517) Urine Volume Urine Volume (no code) 03-19-2019 Hospital Sufficient 11: [facility] (10mL) [facility] (53486) Urobilinogen Qn [id number] (A) 03-19-2019 Hospital (U) {Karla'U}/dL 11: [facility] (21535) WBC (Bld) 19.19 10*3/uL (H) 3.5 - 10.5 03-19-2019 Hospita l [#/Vol] 10*3/uL 10: [facility] (22873) WBC LM.HPF no information (no code) 0 - 5 /[HPF] 03-19-2019 Hos pital (Urine sed) 11:130 [facility] [#/Area] [facility] (54263) Yeast.budding Ql No Yeast present (no code) 03-19-2019 Hosp ital (Urine sed) 11:130500 [facility] (78769) no information Urine Saved if (A) 03-19-2019 Hospital Culture Needed 11: [facility] (48hrs from time [facility] of collection) ([id number]) No panel information on 2019-03-18 no information Chart note added (no code) [facility] ([id number]) No panel information on 2019-03-14 no information Chart note added (no code) [facility] (25218) no information Chart note added (no code) [facility] (64833) No panel information on 2019-03-11 no information Chart note added (no code) [facility] (56410) no information Chart note added (no code) [facility] (95149) No panel information on 2019-03-10 no information Chart note added (no code) [facility] (09089) No panel information on 2019-03-09 no information Chart note added (no code) [facility] ([id number]) No panel information on 2019-03-07 no information Chart note added (no code) [facility] ([id number]) no information Chart note added (no code) [facility] ([id number]) No panel information on 2019-03-04 no information Chart note added (no code) [facility] ([id number]) No panel information on 2019-03-03 no information Chart note added (no code) [facility] ([id number]) No panel information on 2019-02-28 no information Chart note added (no code) [facility] ([id number]) No panel information on 2019-02-25 no information Chart note added (no code) [facility] ([id number]) No panel information on 2019-02-22 no information Chart note added (no code) [facility] ([id number]) No panel information on 2019-02-21 no information Chart note added (no code) [facility] ([id number]) No panel information on 2019-02-18 no information Chart note added (no code) [facility] ([id number]) No panel information on 2019-02-14 no information Chart note added (no code) [facility] ([id number]) no information Chart note added (no code) [facility] (33566) No panel information on 2019-02-11 no information Chart note added (no code) [facility] ([id number]) No panel information on 2019-02-10 Albumin BCG dye 3.9 (no code) 02-10-2019 Hospital [Mass/Vol] 04: [facility] (28590) ALP [Catalytic 54 U/L (no code) 44 - 147 U/L 02-10-2019 Hosp ital activity/Vol] 04: [facility] (86555) ALT [Catalytic 14 U/L (no code) 4 - 40 U/L 02-10-2019 Hospit al activity/Vol] 04: [facility] (14096) Anion gap 19 mmol/L (H) 3 - 11 mmol/L 02-10-2019 Hospital [Moles/Vol] 04: [facility] (95586) AST [Catalytic 32 U/L (no code) 10 - 34 U/L 02-10-2019 Hospi lalo activity/Vol] 04: [facility] (08208) Bacteria LM Ql no information (no code) 02-10-2019 Hospital (Urine sed) 04: [facility] (76241) Basophils (Bld) 0.0 10*3/uL (no code) 0 - 0.3 10*3/uL 02-10-2019 Hospital [#/Vol] 04: [facility] (77248) Basophils/100 0.30 % (no code) 0.5 - 1 % 02-10-2019 Hospital WBC (Bld) 04: [facility] (47397) Bilirubin 0.4 mg/dL (no code) 0.1 - 1.2 mg/dL 02-10-2019 Hospit al [Mass/Vol] 04: [facility] (03993) Bilirubin N/A (A) 02-10-2019 Hospital Confirm Ql (U) 04: [facility] (71645) Bilirubin Ql (U) no information (no code) 02-10-2019 Hospit al 04: [facility] (19303) Calcium 9.8 mg/dL (no code) 8.5 - 10.2 mg/dL 02-10-2019 Hospi lalo [Mass/Vol] 04: [facility] (25653) Chloride 99 mmol/L (no code) 95 - 106 mmol/L 02-10-2019 Hospit al [Moles/Vol] 04: [facility] (03496) Clarity (U) Clear (no code) 02-10-2019 Hospital 04: [facility] (04541) Color (U) Yellow (no code) 02-10-2019 Hospital 04: [facility] (62853) Creatinine 0.84 mg/dL (no code) 02-10-2019 Hospital [Mass/Vol] 04: [facility] (06569) Eosinophils 0.4 10*3/uL (no code) 0.05 - 0.5 02-10-2019 Hospita l (Bld) [#/Vol] 10*3/uL 04: [facility] (70308) Eosinophils/100 2.3 % (no code) 1 - 4 % 02-10-2019 Hospit al WBC (Bld) 04: [facility] (11741) Epithelial 0-5/HPF (A) 02-10-2019 Hospital cells.squamous 04: [facility] LM.HPF (Urine [facility] sed) [#/Area] ([id number]) Erythrocyte 11.9 % (no code) 11.6 - 14.6 % 02-10-2019 Hospit al distribution 04: [facility] width (RBC) [facility] [Ratio] ([id number]) GFR/1.73 sq 65 (no code) 90 - 120 02-10-2019 Hospital M.predicted MDRD mL/min/{1.73_m2} mL/min/{1.73_m2} 04: [facility] (S/P/Bld) [Vol [facility] rate/Area] ([id number]) Globulin (S) 2.4 g/dL (no code) 2 - 3.5 g/dL 02-10-2019 Hospit al [Mass/Vol] 04: [facility] (00382) Glucose 89 mg/dL (no code) 60 - 125 mg/dL 02-10-2019 Hospita l [Mass/Vol] 04: [facility] (03195) Glucose Test no information (no code) 02-10-2019 Hospital strip (U) 04: [facility] [Mass/Vol] [facility] (33034) HCO3 (P) 20 (L) 02-10-2019 Hospital [Moles/Vol] 04: [facility] (84681) Hematocrit (Bld) 34.0 % (L) 36.1 - 50.3 % 02-10-2019 H [facility]spital [Volume 04: [facility] fraction[facility] ([id number]) Hemoglobin (Bld) 11.5 g/dL (L) 12.1 - 17.2 g/dL 02-10-2019 Hospital [Mass/Vol] 04: [facility] ([id number]) Hemoglobin Ql no information (no code) 02-10-2019 Hospital (U) 04: [facility] ([id number]) Ketones (U) no information (no code) 02-10-2019 Hospital [Mass/Vol] 04: [facility] ([id number]) Leukocyte no information (no code) 02-10-2019 Hospital esterase Test 04: [facility] strip Ql (U) [facility] ([id number]) Lymphocytes 2.55 10*3/uL (no code) 0.9 - 2.9 02-10-2019 Hospita l (Bld) [#/Vol] 10*3/uL 04: [facility] ([id number]) Lymphocytes/100 16.1 % (no code) 20 - 40 % 02-10-2019 Hospit al WBC (Bld) 04: [facility] ([id number]) MCH (RBC) 34.5 pg (H) 27 - 31 pg 02-10-2019 Hospital [Entitic mass] 04: [facility] ([id number]) MCHC (RBC) 33.8 g/dL (no code) 32 - 36 g/dL 02-10-2019 Hospital [Mass/Vol] 04: [facility] ([id number]) MCV (RBC) 102.1 fL (H) 80 - 100 fL 02-10-2019 Hospital [Entitic vol] 04: [facility] ([id number]) Monocytes (Bld) 1.0 10*3/uL (H) 0.3 - 0.9 02-10-2019 Hosp ital [#/Vol] 10*3/uL 04: [facility] ([id number]) Monocytes/100 6.0 % (no code) 2 - 8 % 02-10-2019 Hospital WBC (Bld) 04: [facility] ([id number]) Neutrophils 11.96 10*3/uL (H) 1.7 - 7 10*3/uL 02-10-2019 Hospital (Bld) [#/Vol] 04: [facility] ([id number]) Neutrophils/100 75.3 % (no code) 40 - 60 % 02-10-2019 Hospit al WBC (Bld) 04: [facility] ([id number]) Nitrite Ql (U) no information (no code) 02-10-2019 Hospital 04: [address] ([id number]) Osmolality Calc 275 (L) 02-10-2019 Hospital [Osmolality] 04: [facility] ([id number]) pH (U) 7.0 [pH] (no code) 4.6 - 8 [pH] 02-10-2019 Hospital 04: [facility] ([id number]) Platelet mean 11.3 fL (H) 7.2 - 11.7 fL 02-10-2019 Hosp ital volume (Bld) 04: [facility] [Entitic vol] [facility] ([id number]) Platelets (Bld) 358 10*3/uL (no code) 150 - 450 02-10-2019 Hosp ital [#/Vol] 10*3/uL 04: [facility] (53592) Potassium 4.8 mmol/L (no code) 3.7 - 5.2 mmol/L 02-10-2019 Hosp ital [Moles/Vol] 04: [facility] (48255) Protein (U) no information (no code) 0 - 20 mg/dL 02-10-2019 Ho spital [Mass/Vol] 04: [facility] ([id number]) Protein 6.3 g/dL (no code) 6.4 - 8.3 g/dL 02-10-2019 Hospita l [Mass/Vol] 04: [facility] (83741) RBC (Bld) 3.33 10*6/uL (L) 4.2 - 6.1 02-10-2019 Hospital [#/Vol] 10*6/uL 04: [facility] (25556) RBC LM.HPF no information (no code) 0 - 4 /[HPF] 02-10-2019 Hos pital (Urine sed) 04: [facility] [#/Area] [facility] (20640) Sodium 133 mmol/L (L) 135 - 145 mmol/L 02-10-2019 Hosp ital [Moles/Vol] 04: [facility] (82582) Specific gravity 1.015 (no code) 02-10-2019 Hospital (U) [Rel 04: [facility] density] [facility] (26593) Urea nitrogen 15 mg/dL (no code) 7 - 20 mg/dL 02-10-2019 Hospi lalo [Mass/Vol] 04: [facility] ([id number]) Urine Volume Urine Volume (no code) 02-10-2019 Hospital Sufficient 04:07-0500 [facility] (10mL) [facility] ([id number]) Urobilinogen Qn [id number] (A) 02-10-2019 Hospital (U) {Karla'U}/dL 04: [facility] ([id number]) WBC (Bld) 15.88 10*3/uL (H) 3.5 - 10.5 02-10-2019 Hospita l [#/Vol] 10*3/uL 04: [facility] (09557) WBC LM.HPF no information (no code) 0 - 5 /[HPF] 02-10-2019 Hos pital (Urine sed) 04: [facility] [#/Area] [facility] ([id number]) no information Urine Saved if (A) 02-10-2019 Hospital Culture Needed 04: [facility] (48hrs from time [facility] of collection) ([id number]) No panel information on 2019-02-09 no information Chart note added (no code) [facility] (49036) No panel information on 2019-02-07 no information Chart note added (no code) [facility] ([id number]) No panel information on 2019-02-04 no information Chart note added (no code) [facility] ([id number]) no information Chart note added (no code) [facility] ([id number]) No panel information on 2019-02-03 no information Chart note added (no code) [facility] ([id number]) No panel information on 2019-02-02 no information Chart note added (no code) [facility] ([id number]) No panel information on 2019-02-01 no information Chart note added (no code) [facility] ([id number]) no information Chart note added (no code) [facility] ([id number]) No panel information on 2019-01-31 no information Chart note added (no code) [facility] ([id number]) No panel information on 2019-01-28 no information Chart note added (no code) [facility] ([id number]) No panel information on 2019-01-25 no information Chart note added (no code) [facility] ([id number]) No panel information on 2019-01-24 no information Chart note added (no code) [facility] ([id number]) No panel information on 2019-01-21 no information Chart note added (no code) [facility] ([id number]) No panel information on 2019-01-19 no information Chart note added (no code) [facility] ([id number]) No panel information on 2019-01-18 no information Chart note added (no code) [facility] ([id number]) No panel information on 2019-01-17 Oxygen 99 % (no code) 94 - 100 % 01-17-2019 [facility] saturation in 12:11-0400 ([id number]) Blood no information Chart note added (no code) [facility] ([id number]) no information Chart note added (no code) [facility] ([id number]) no information Chart note added (no code) [facility] ([id number]) No panel information on 2019-01-15 Oxygen 98 % (no code) 94 - 100 % 01-15-2019 [facility] saturation in 09:54-0400 ([id number]) Blood Oxygen 99 % (no code) 94 - 100 % 01-15-2019 [facility] saturation in 14:23-0400 ([id number]) Blood No panel information on 2019-01-14 Oxygen 98 % (no code) 94 - 100 % 01-14-2019 [facility] saturation in 10:22-0400 ([id number]) Blood no information Chart note added (no code) [facility] ([id number]) No panel information on 2019-01-13 Oxygen 98 % (no code) 94 - 100 % 01-13-2019 [facility] saturation in 11:12-0400 ([id number]) Blood no information Chart note added (no code) [facility] ([id number]) No panel information on 2019-01-12 Oxygen 97 % (no code) 94 - 100 % 01-12-2019 [facility] saturation in 10:04-0400 ([id number]) Blood no information Chart note added (no code) [facility] ([id number]) No panel information on 2019-01-11 Oxygen 99 % (no code) 94 - 100 % 01-11-2019 [facility] saturation in 11:27-0400 ([id number]) Blood No panel information on 2019-01-10 Oxygen 95 % (no code) 94 - 100 % 01-10-2019 [facility] saturation in 11:00-0400 ([id number]) Blood no information Chart note added (no code) [facility] ([id number]) No panel information on 2019-01-07 Oxygen 98 % (no code) 94 - 100 % 01-07-2019 [facility] saturation in 10:40-0400 ([id number]) Blood no information Chart note added (no code) [facility] ([id number]) No panel information on 2019-01-06 Oxygen 98 % (no code) 94 - 100 % 01-06-2019 [facility] saturation in 12:59-0400 ([id number]) Blood No panel information on 2019-01-05 Oxygen 98 % (no code) 94 - 100 % 01-05-2019 [facility] saturation in 10:09-0400 ([id number]) Blood No panel information on 2019-01-04 Oxygen 90 % (no code) 94 - 100 % 01-04-2019 [facility] saturation in 12:19-0400 ([id number]) Blood no information Chart note added (no code) [facility] ([id number]) No panel information on 2019-01-03 Oxygen 98 % (no code) 94 - 100 % 01-03-2019 [facility] saturation in 10:48-0400 ([id number]) Blood no information Chart note added (no code) [facility] ([id number]) no information Chart note added (no code) [facility] ([id number]) No panel information on 2019-01-01 Oxygen 96 % (no code) 94 - 100 % 01-01-2019 [facility] saturation in 14:35-0400 ([id number]) Blood No panel information on 2018-12-31 Oxygen 95 % (no code) 94 - 100 % 12-31-2018 [facility] saturation in 11:22-0400 ([id number]) Blood No panel information on 2018-12-30 Oxygen 98 % (no code) 94 - 100 % 12-30-2018 [facility] saturation in 10:31-0400 ([id number]) Blood no information Chart note added (no code) [facility] ([id number]) No panel information on 2018-12-29 Oxygen 96 % (no code) 94 - 100 % 12-29-2018 [facility] saturation in 10:04-0400 ([id number]) Blood no information Chart note added (no code) [facility] ([id number]) No panel information on 2018-12-28 Oxygen 98 % (no code) 94 - 100 % 12-28-2018 [facility] saturation in 16:01-0400 ([id number]) Blood no information Chart note added (no code) [facility] ([id number]) no information Chart note added (no code) [facility] ([id number]) No panel information on 2018-12-27 Oxygen 97 % (no code) 94 - 100 % 12-27-2018 [facility] saturation in 13:18-0400 ([id number]) Blood no information Chart note added (no code) [facility] ([id number]) no information Chart note added (no code) [facility] ([id number]) no information Chart note (no code) [facility] updated ([id number]) No panel information on 2018-12-26 no information Chart note added (no code) [facility] ([id number]) No panel information on 2018-12-25 Oxygen 99 % (no code) 94 - 100 % 12-25-2018 [facility] saturation in 13:10-0400 ([id number]) Blood No panel information on 2018-12-24 Oxygen 95 % (no code) 94 - 100 % 12-24-2018 [facility] saturation in 11:31-0400 ([id number]) Blood no information Chart note added (no code) [facility] ([id number]) No panel information on 2018-12-23 Oxygen 100 % (no code) 94 - 100 % 12-23-2018 [facility] saturation in 11:02-0400 ([id number]) Blood no information Chart note added (no code) [facility] ([id number]) No panel information on 2018-12-22 Oxygen 98 % (no code) 94 - 100 % 12-22-2018 [facility] saturation in 10:54-0400 ([id number]) Blood no information Chart note added (no code) [facility] ([id number]) No panel information on 2018-12-21 Oxygen 93 % (no code) 94 - 100 % 12-21-2018 [facility] saturation in 14:16-0400 ([id number]) Blood no information Chart note added (no code) [facility] ([id number]) No panel information on 2018-12-20 Oxygen 98 % (no code) 94 - 100 % 12-20-2018 [facility] saturation in 14:36-0400 ([id number]) Blood no information Chart note added (no code) [facility] ([id number]) No panel information on 2018-12-19 Oxygen 98 % (no code) 94 - 100 % 12-19-2018 [facility] saturation in 09:43-0400 ([id number]) Blood No panel information on 2018-12-18 Oxygen 98 % (no code) 94 - 100 % 12-18-2018 [facility] saturation in 11:54-0400 ([id number]) Blood No panel information on 2018-12-17 Oxygen 93 % (no code) 94 - 100 % 12-17-2018 [facility] saturation in 12:09-0400 ([id number]) Blood Oxygen 96 % (no code) 94 - 100 % 12-17-2018 [facility] saturation in 17:07-0400 ([id number]) Blood no information Chart note added (no code) [facility] ([id number]) No panel information on 2018-12-15 Oxygen 98 % (no code) 94 - 100 % 12-15-2018 [facility] saturation in 10:20-0400 ([id number]) Blood no information Chart note added (no code) [facility] ([id number]) No panel information on 2018-12-14 Oxygen 97 % (no code) 94 - 100 % 12-14-2018 [facility] saturation in 12:18-0400 ([id number]) Blood no information Chart note added (no code) [facility] ([id number]) no information Chart note added (no code) [facility] ([id number]) no information Chart note added (no code) [facility] ([id number]) No panel information on 2018-12-13 Oxygen 98 % (no code) 94 - 100 % 12-13-2018 [facility] saturation in 10:29-0400 ([id number]) Blood no information Chart note added (no code) [facility] ([id number]) No panel information on 2018-12-12 Oxygen 98 % (no code) 94 - 100 % 12-12-2018 [facility] saturation in 10:15-0400 ([id number]) Blood No panel information on 2018-12-11 Oxygen 98 % (no code) 94 - 100 % 12-11-2018 [facility] saturation in 09:48-0400 ([id number]) Blood No panel information on 2018-12-10 Oxygen 94 % (no code) 94 - 100 % 12-10-2018 [facility] saturation in 12:08-0400 ([id number]) Blood no information Chart note added (no code) [facility] ([id number]) No panel information on 2018-12-09 Oxygen 98 % (no code) 94 - 100 % 12-09-2018 [facility] saturation in 11:29-0400 ([id number]) Blood no information Chart note added (no code) [facility] ([id number]) No panel information on 2018-12-08 Oxygen 94 % (no code) 94 - 100 % 12-08-2018 [facility] saturation in 10:42-0400 ([id number]) Blood no information Chart note added (no code) [facility] ([id number]) No panel information on 2018-12-07 Oxygen 97 % (no code) 94 - 100 % 12-07-2018 [facility] saturation in 12:53-0400 ([id number]) Blood no information Chart note added (no code) [facility] ([id number]) No panel information on 2018-12-06 Oxygen 88 % (LL) 94 - 100 % 12-06-2018 [facility] saturation in 11:08-0400 ([id number]) Blood no information Chart note added (no code) [facility] ([id number]) no information Chart note added (no code) [facility] ([id number]) No panel information on 2018-12-03 Oxygen 98 % (no code) 94 - 100 % 12-03-2018 [facility] saturation in 12:36-0400 ([id number]) Blood no information Chart note added (no code) [facility] ([id number]) No panel information on 2018-12-02 Oxygen 93 % (no code) 94 - 100 % 12-02-2018 [facility] saturation in 11:03-0400 ([id number]) Blood no information Chart note added (no code) [facility] ([id number]) No panel information on 2018-12-01 Oxygen 93 % (no code) 94 - 100 % 12-01-2018 [facility] saturation in 11:37-0400 ([id number]) Blood no information Chart note added (no code) [facility] ([id number]) No panel information on 2018-11-30 no information Chart note added (no code) [facility] ([id number]) No panel information on 2018-11-29 Oxygen 97 % (no code) 94 - 100 % 11-29-2018 [facility] saturation in 11:25-0400 ([id number]) Blood no information Chart note added (no code) [facility] ([id number]) No panel information on 2018-11-28 Oxygen 96 % (no code) 94 - 100 % 11-28-2018 [facility] saturation in 09:37-0400 ([id number]) Blood No panel information on 2018-11-27 Oxygen 96 % (no code) 94 - 100 % 11-27-2018 [facility] saturation in 09:53-0400 ([id number]) Blood No panel information on 2018-11-26 Oxygen 98 % (no code) 94 - 100 % 11-26-2018 [facility] saturation in 10:10-0400 ([id number]) Blood no information Chart note added (no code) [facility] ([id number]) No panel information on 2018-11-25 Oxygen 97 % (no code) 94 - 100 % 11-25-2018 [facility] saturation in 10:30-0400 ([id number]) Blood no information Chart note added (no code) [facility] ([id number]) No panel information on 2018-11-24 Oxygen 96 % (no code) 94 - 100 % 11-24-2018 [facility] saturation in 10:01-0400 ([id number]) Blood Oxygen 94 % (no code) 94 - 100 % 11-24-2018 [facility] saturation in 14:11-0400 ([id number]) Blood no information Chart note added (no code) [facility] ([id number]) No panel information on 2018-11-23 Oxygen 99 % (no code) 94 - 100 % 11-23-2018 [facility] saturation in 14:30-0400 ([id number]) Blood no information Chart note added (no code) [facility] ([id number]) no information Chart note added (no code) [facility] ([id number]) No panel information on 2018-11-19 Oxygen 96 % (no code) 94 - 100 % 11-19-2018 [facility] saturation in 11:16-0400 ([id number]) Blood no information Chart note added (no code) [facility] ([id number]) no information Chart note added (no code) [facility] ([id number]) No panel information on 2018-11-18 Oxygen 95 % (no code) 94 - 100 % 11-18-2018 [facility] saturation in 10:01-0400 ([id number]) Blood no information Chart note added (no code) [facility] ([id number]) No panel information on 2018-11-17 Oxygen 98 % (no code) 94 - 100 % 11-17-2018 [facility] saturation in 10:05-0400 ([id number]) Blood no information Chart note added (no code) [facility] ([id number]) No panel information on 2018-11-16 Oxygen 98 % (no code) 94 - 100 % 11-16-2018 [facility] saturation in 14:02-0400 ([id number]) Blood no information Chart note added (no code) [facility] ([id number]) no information Chart note added (no code) [facility] ([id number]) No panel information on 2018-11-15 Oxygen 96 % (no code) 94 - 100 % 11-15-2018 [facility] saturation in 10:07-0400 ([id number]) Blood no information Chart note added (no code) [facility] ([id number]) No panel information on 2018-11-13 Bacteria LM Ql Trace (A) 11-13-2018 Hospital (Urine sed) 18:48-0400 [facility] ([id number]) Bilirubin N/A (A) 11-13-2018 Hospital Confirm Ql (U) 18:48-0400 [facility] (93954) Bilirubin Ql (U) no information (no code) 11-13-2018 Hospit al 18:48-0400 [facility] ([id number]) Casts LM Ql Hyaline: (no code) 11-13-2018 Hospital (Urine sed) 10-15/LPF 18:48-0400 [facility] ([id number]) Clarity (U) Slightly Cloudy (A) 11-13-2018 Hospital 18:48-0400 [facility] ([id number]) Color (U) Yellow (no code) 11-13-2018 Hospital 18:48-0400 [facility] (47456) CULTURE SOURCE Urine (no code) 11-13-2018 Hospital 18:48-0400 [facility] ([id number]) Epithelial 0-5/HPF (A) 11-13-2018 Hospital cells.squamous 18:48-0400 [facility] LM.HPF (Urine [facility] sed) [#/Area] ([id number]) FINAL CULTURE No Growth 48 (no code) 11-13-2018 Hospital RESULTS hours 18:48-0400 [facility] ([id number]) Glucose Test no information (no code) 11-13-2018 Hospital strip (U) 18:48-0400 [facility] [Mass/Vol] [facility] ([id number]) Hemoglobin Ql no information (no code) 11-13-2018 Hospital (U) 18:48-0400 [facility] (57765) Ketones (U) no information (no code) 11-13-2018 Hospital [Mass/Vol] 18:48-0400 [facility] ([id number]) Leukocyte Trace (A) 11-13-2018 Hospital esterase Test 18:48-0400 [facility] strip Ql (U) [facility] ([id number]) Mucus Ql (Urine 1+ (A) 11-13-2018 Hospital sed) 18:48-0400 [facility] (78027) Nitrite Ql (U) no information (no code) 11-13-2018 Hospital 18:48-0400 [facility] ([id number]) Oxygen 98 % (no code) 94 - 100 % 11-13-2018 [facility] saturation in 10: ([id number]) Blood pH (U) 6.5 [pH] (no code) 4.6 - 8 [pH] 11-13-2018 Hospital 18:48-0400 [facility] ([id number]) PRELIM CULTURE No Growth 24 (no code) 11-13-2018 Hospital RESULTS hours 18:48-0400 [facility] ([id number]) Protein (U) no information (no code) 0 - 20 mg/dL 11-13-2018 Ho spital [Mass/Vol] 18:48-0400 [facility] ([id number]) RBC LM.HPF 0-2/HPF (A) 11-13-2018 Hospital (Urine sed) 18:48-0400 [facility] [#/Area] [facility] ([id number]) Specific gravity 1.010 (no code) 11-13-2018 Hospital (U) [Rel 18:48-0400 [facility] density] [facility] ([id number]) Urine Volume Urine Volume (no code) 11-13-2018 Hospital Sufficient 18:48-0400 [facility] (10mL) [facility] ([id number]) Urobilinogen Qn 0.2 (no code) 11-13-2018 Hospital (U) 18:48-0400 [facility] ([id number]) WBC LM.HPF 2-5/HPF (A) 11-13-2018 Hospital (Urine sed) 18:48-0400 [facility] [#/Area] [facility] ([id number]) Yeast.budding Ql No Yeast present (no code) 11-13-2018 Hosp ital (Urine sed) 18:48-0400 [facility] ([id number]) no information Urine Saved if (A) 11-13-2018 Hospital Culture Needed 18:48-0400 [facility] (48hrs from time [facility] of collection) ([id number]) no information Culture to (A) 11-13-2018 Hospital follow 18:48-0400 [facility] ([id number]) No panel information on 2018-11-12 Albumin BCG dye 4.1 (no code) 11-12-2018 Hospital [Mass/Vol] 17: [facility] ([id number]) ALP [Catalytic 45 U/L (no code) 44 - 147 U/L 11-12-2018 Hosp ital activity/Vol] 17: [facility] ([id number]) ALT [Catalytic 11 U/L (no code) 4 - 40 U/L 11-12-2018 Hospit al activity/Vol] 17: [facility] (91425) Anion gap 18 mmol/L (H) 3 - 11 mmol/L 11-12-2018 Hospital [Moles/Vol] : [facility] (40860) AST [Catalytic 25 U/L (no code) 10 - 34 U/L 11-12-2018 Hospi lalo activity/Vol] 17: [facility] (90996) Basophils (Bld) 0.0 10*3/uL (no code) 0 - 0.3 10*3/uL 11-12-2018 Hospital [#/Vol] 17: [facility] ([id number]) Basophils/100 0.30 % (no code) 0.5 - 1 % 11-12-2018 Hospital WBC (Bld) : [facility] (29302) Bilirubin 0.4 mg/dL (no code) 0.1 - 1.2 mg/dL 11-12-2018 Hospit al [Mass/Vol] : [facility] (26391) Calcium 9.8 mg/dL (no code) 8.5 - 10.2 mg/dL 11-12-2018 Hospi lalo [Mass/Vol] : [facility] (20794) Chloride 95 mmol/L (no code) 95 - 106 mmol/L 11-12-2018 Hospit al [Moles/Vol] : [facility] (97560) Creatinine 0.85 mg/dL (no code) 11-12-2018 Hospital [Mass/Vol] 17: [facility] (90318) CRP [Mass/Vol] 0.06 (no code) 11-12-2018 Hospital 17: [facility] (39146) Eosinophils 0.2 10*3/uL (no code) 0.05 - 0.5 11-12-2018 Hospita l (Bld) [#/Vol] 10*3/uL 17: [facility] (96466) Eosinophils/100 1.6 % (no code) 1 - 4 % 11-12-2018 Hospit al WBC (Bld) : [facility] ([id number]) Erythrocyte 12.2 % (no code) 11.6 - 14.6 % 11-12-2018 Hospit al distribution : [facility] width (RBC) [facility] [Ratio] ([id number]) Free T4 1.03 ng/dL (no code) 0.9 - 2.2 ng/dL 11-12-2018 Hospi lalo [Mass/Vol] : [facility] (53953) GFR/1.73 sq 64 (no code) 90 - 120 11-12-2018 Hospital M.predicted MDRD mL/min/{1.73_m2} mL/min/{1.73_m2} : [facility] (S/P/Bld) [Vol [facility] rate/Area] (48511) Globulin (S) 2.4 g/dL (no code) 2 - 3.5 g/dL 11-12-2018 Hospit al [Mass/Vol] : [facility] (49299) Glucose 98 mg/dL (no code) 60 - 125 mg/dL 11-12-2018 Hospita l [Mass/Vol] : [facility] (51117) HCO3 (P) 21 (L) 11-12-2018 Hospital [Moles/Vol] : [facility] (14479) Hematocrit (Bld) 34.0 % (L) 36.1 - 50.3 % 11-12-2018 H ospital [Volume : [facility] fraction] [facility] ([id number]) Hemoglobin (Bld) 11.4 g/dL (L) 12.1 - 17.2 g/dL 11-12-2018 Hospital [Mass/Vol] 17: [facility] (45908) Lymphocytes 2.04 10*3/uL (no code) 0.9 - 2.9 11-12-2018 Hospita l (Bld) [#/Vol] 10*3/uL 17: [facility] (24710) Lymphocytes/100 16.3 % (no code) 20 - 40 % 11-12-2018 Hospit al WBC (Bld) : [facility] (15619) MCH (RBC) 33.6 pg (H) 27 - 31 pg 11-12-2018 Hospital [Entitic mass] : [facility] (08686) MCHC (RBC) 33.5 g/dL (no code) 32 - 36 g/dL 11-12-2018 Hospital [Mass/Vol] 17:040 [facility] (91062) MCV (RBC) 100.3 fL (H) 80 - 100 fL 11-12-2018 Hospital [Entitic vol] : [facility] (83628) Monocytes (Bld) 0.8 10*3/uL (no code) 0.3 - 0.9 11-12-2018 Hosp ital [#/Vol] 10*3/uL 17: [facility] (21669) Monocytes/100 6.6 % (no code) 2 - 8 % 11-12-2018 Hospital WBC (Bld) : [facility] (51534) Neutrophils 9.40 10*3/uL (H) 1.7 - 7 10*3/uL 11-12-2018 H ospital (Bld) [#/Vol] :040 [facility] (16664) Neutrophils/100 75.2 % (no code) 40 - 60 % 11-12-2018 Hospit al WBC (Bld) : [facility] (93010) Osmolality Calc 268 (L) 08-23-2019 Hospital [Osmolality] 17:040 [facility] (72173) Oxygen 98 % (no code) 94 - 100 % 11-12-2018 [facility] saturation in (00274) Blood Platelet mean 11.7 fL (H) 7.2 - 11.7 fL 11-12-2018 Hosp ital volume (Bld) : [facility] [Entitic vol] [facility] (42807) Platelets (Bld) 344 10*3/uL (no code) 150 - 450 11-12-2018 Hosp ital [#/Vol] 10*3/uL 17: [facility] (43098) Potassium 5.2 mmol/L (no code) 3.7 - 5.2 mmol/L 11-12-2018 Hosp ital [Moles/Vol] 17: [facility] (63741) Protein 6.5 g/dL (no code) 6.4 - 8.3 g/dL 11-12-2018 Hospita l [Mass/Vol] 17:040 [facility] (11030) RBC (Bld) 3.39 10*6/uL (L) 4.2 - 6.1 11-12-2018 Hospital [#/Vol] 10*6/uL 17: [facility] (40684) Sodium 129 mmol/L (L) 135 - 145 mmol/L 11-12-2018 Hosp ital [Moles/Vol] 17: [facility] (76532) T3 [Mass/Vol] 0.83 (no code) 11-12-2018 Hospital 17: [facility] (17323) TSH Qn 3.12 (no code) 11-12-2018 Hospital : [facility] (68525) Urea nitrogen 16 mg/dL (no code) 7 - 20 mg/dL 11-12-2018 Hospi allo [Mass/Vol] 17:040 [facility] (11290) WBC (Bld) 12.50 10*3/uL (H) 3.5 - 10.5 11-12-2018 Hospita l [#/Vol] 10*3/uL 17:00-0400 [facility] ([id number]) no information Chart note added (no code) [facility] ([id number]) No panel information on 2018-11-11 Oxygen 98 % (no code) 94 - 100 % 11-11-2018 [facility] saturation in 10:12-0400 ([id number]) Blood no information Chart note added (no code) [facility] ([id number]) No panel information on 2018-11-10 Oxygen 96 % (no code) 94 - 100 % 11-10-2018 [facility] saturation in 09:17-0400 ([id number]) Blood Oxygen 97 % (no code) 94 - 100 % 11-10-2018 [facility] saturation in 14:03-0400 ([id number]) Blood no information Chart note added (no code) [facility] ([id number]) No panel information on 2018-11-09 no information Chart note added (no code) [facility] ([id number]) No panel information on 2018-11-08 Oxygen 98 % (no code) 94 - 100 % 11-08-2018 [facility] saturation in 11:36-0400 ([id number]) Blood no information Chart note added (no code) [facility] ([id number]) no information Chart note added (no code) [facility] ([id number]) No panel information on 2018-11-06 Oxygen 98 % (no code) 94 - 100 % 11-06-2018 [facility] saturation in 11:29-0400 ([id number]) Blood No panel information on 2018-11-05 Oxygen 99 % (no code) 94 - 100 % 11-05-2018 [facility] saturation in 17:20-0400 ([id number]) Blood no information Chart note added (no code) [facility] ([id number]) No panel information on 2018-11-04 Oxygen 98 % (no code) 94 - 100 % 11-04-2018 [facility] saturation in 10:12-0400 ([id number]) Blood no information Chart note added (no code) [facility] ([id number]) no information Chart note added (no code) [facility] ([id number]) No panel information on 2018-11-03 Oxygen 98 % (no code) 94 - 100 % 11-03-2018 [facility] saturation in 10:00-0400 ([id number]) Blood no information Chart note added (no code) [facility] ([id number]) No panel information on 2018-11-02 no information Chart note added (no code) [facility] ([id number]) No panel information on 2018-11-01 Oxygen 98 % (no code) 94 - 100 % 11-01-2018 [facility] saturation in 10:00-0400 ([id number]) Blood No panel information on 2018-10-31 Oxygen 95 % (no code) 94 - 100 % 10-31-2018 [facility] saturation in 10:00-0400 ([id number]) Blood No panel information on 2018-10-29 Oxygen 98 % (no code) 94 - 100 % 10-29-2018 [facility] saturation in 10:54-0400 ([id number]) Blood no information Chart note added (no code) [facility] ([id number]) no information Chart note added (no code) [facility] ([id number]) No panel information on 2018-10-28 no information Chart note added (no code) [facility] ([id number]) No panel information on 2018-10-27 Oxygen 98 % (no code) 94 - 100 % 10-27-2018 [facility] saturation in 18:49-0400 ([id number]) Blood No panel information on 2018-10-26 Oxygen 98 % (no code) 94 - 100 % 10-26-2018 [facility] saturation in 09:35-0400 ([id number]) Blood Oxygen 98 % (no code) 94 - 100 % 10-26-2018 [facility] saturation in 14:47-0400 ([id number]) Blood no information Chart note added (no code) [facility] ([id number]) no information Chart note added (no code) [facility] ([id number]) No panel information on 2018-10-25 Oxygen 90 % (no code) 94 - 100 % 10-25-2018 [facility] saturation in 11:06-0400 ([id number]) Blood no information Chart note added (no code) [facility] ([id number]) No panel information on 2018-10-24 Oxygen 99 % (no code) 94 - 100 % 10-24-2018 [facility] saturation in 09:27-0400 ([id number]) Blood No panel information on 2018-10-23 Oxygen 98 % (no code) 94 - 100 % 10-23-2018 [facility] saturation in 10:57-0400 ([id number]) Blood No panel information on 2018-10-22 Oxygen 98 % (no code) 94 - 100 % 10-22-2018 [facility] saturation in 11:22-0400 ([id number]) Blood no information Chart note added (no code) [facility] ([id number]) No panel information on 2018-10-21 Oxygen 98 % (no code) 94 - 100 % 10-21-2018 [facility] saturation in 10:49-0400 ([id number]) Blood no information Chart note added (no code) [facility] ([id number]) No panel information on 2018-10-20 Oxygen 99 % (no code) 94 - 100 % 10-20-2018 [facility] saturation in 10:12-0400 ([id number]) Blood no information Chart note added (no code) [facility] ([id number]) No panel information on 2018-10-19 Oxygen 98 % (no code) 94 - 100 % 10-19-2018 [facility] saturation in 09:57-0400 ([id number]) Blood Oxygen 98 % (no code) 94 - 100 % 10-19-2018 [facility] saturation in 14:22-0400 ([id number]) Blood no information Chart note added (no code) [facility] ([id number]) no information Chart note added (no code) [facility] ([id number]) No panel information on 2018-10-18 Oxygen 98 % (no code) 94 - 100 % 10-18-2018 [facility] saturation in 11:27-0400 ([id number]) Blood no information Chart note added (no code) [facility] ([id number]) no information Chart note added (no code) [facility] ([id number]) no information Chart note added (no code) [facility] ([id number]) No panel information on 2018-10-15 Oxygen 99 % (no code) 94 - 100 % 10-15-2018 [facility] saturation in 10:37-0400 ([id number]) Blood no information Chart note added (no code) [facility] ([id number]) No panel information on 2018-10-14 Oxygen 91 % (no code) 94 - 100 % 10-14-2018 [facility] saturation in 10:22-0400 ([id number]) Blood no information Chart note added (no code) [facility] ([id number]) No panel information on 2018-10-13 Oxygen 89 % (L) 94 - 100 % 10-13-2018 [facility] saturation in 10:25-0400 ([id number]) Blood no information Chart note added (no code) [facility] ([id number]) No panel information on 2018-10-12 Oxygen 98 % (no code) 94 - 100 % 10-12-2018 [facility] saturation in 15:04-0400 ([id number]) Blood no information Chart note added (no code) [facility] ([id number]) No panel information on 2018-10-11 Oxygen 98 % (no code) 94 - 100 % 10-11-2018 [facility] saturation in 10:07-0400 ([id number]) Blood no information Chart note added (no code) [facility] ([id number]) no information Chart note added (no code) [facility] ([id number]) no information Chart note added (no code) [facility] ([id number]) No panel information on 2018-10-10 Oxygen 99 % (no code) 94 - 100 % 10-10-2018 [facility] saturation in 10:08-0400 ([id number]) Blood No panel information on 2018-10-09 Oxygen 99 % (no code) 94 - 100 % 10-09-2018 [facility] saturation in 10:55-0400 ([id number]) Blood No panel information on 2018-10-08 Oxygen 100 % (no code) 94 - 100 % 10-08-2018 [facility] saturation in 10:28-0400 ([id number]) Blood no information Chart note added (no code) [facility] ([id number]) No panel information on 2018-10-07 Oxygen 99 % (no code) 94 - 100 % 10-07-2018 [facility] saturation in 09:48-0400 ([id number]) Blood Oxygen 99 % (no code) 94 - 100 % 10-07-2018 [facility] saturation in 11:09-0400 ([id number]) Blood no information Chart note added (no code) [facility] ([id number]) no information Chart note added (no code) [facility] ([id number]) No panel information on 2018-10-05 Oxygen 98 % (no code) 94 - 100 % 10-05-2018 [facility] saturation in 10:21-0400 ([id number]) Blood no information Chart note added (no code) [facility] ([id number]) No panel information on 2018-10-04 Oxygen 98 % (no code) 94 - 100 % 10-04-2018 [facility] saturation in 10:06-0400 ([id number]) Blood no information Chart note added (no code) [facility] ([id number]) no information Chart note added (no code) [facility] ([id number]) No panel information on 2018-10-03 Oxygen 98 % (no code) 94 - 100 % 10-03-2018 [facility] saturation in 09:58-0400 ([id number]) Blood No panel information on 2018-10-01 Oxygen 99 % (no code) 94 - 100 % 10-01-2018 [facility] saturation in 10:12-0400 ([id number]) Blood no information Chart note added (no code) [facility] ([id number]) No panel information on 2018-09-30 Oxygen 99 % (no code) 94 - 100 % 09-30-2018 [facility] saturation in 09:53-0400 ([id number]) Blood Oxygen 99 % (no code) 94 - 100 % 09-30-2018 [facility] saturation in 11:18-0400 ([id number]) Blood no information Chart note added (no code) [facility] ([id number]) no information Chart note added (no code) [facility] ([id number]) No panel information on 2018-09-29 Oxygen 98 % (no code) 94 - 100 % 09-29-2018 [facility] saturation in 11:04-0400 ([id number]) Blood no information Chart note added (no code) [facility] ([id number]) no information Chart note added (no code) [facility] ([id number]) No panel information on 2018-09-28 Oxygen 99 % (no code) 94 - 100 % 09-28-2018 [facility] saturation in 09:15-0400 ([id number]) Blood No panel information on 2018-09-27 Oxygen 98 % (no code) 94 - 100 % 09-27-2018 [facility] saturation in 10:38-0400 ([id number]) Blood no information Chart note added (no code) [facility] ([id number]) No panel information on 2018-09-26 Oxygen 99 % (no code) 94 - 100 % 09-26-2018 [facility] saturation in 09:05-0400 ([id number]) Blood No panel information on 2018-09-25 Oxygen 99 % (no code) 94 - 100 % 09-25-2018 [facility] saturation in 10:10-0400 ([id number]) Blood No panel information on 2018-09-24 Oxygen 94 % (no code) 94 - 100 % 09-24-2018 [facility] saturation in 10:23-0400 ([id number]) Blood no information Chart note added (no code) [facility] ([id number]) No panel information on 2018-09-22 Oxygen 98 % (no code) 94 - 100 % 09-22-2018 [facility] saturation in 12:09-0400 ([id number]) Blood no information Chart note added (no code) [facility] ([id number]) No panel information on 2018-09-21 Oxygen 98 % (no code) 94 - 100 % 09-21-2018 [facility] saturation in 10:03-0400 ([id number]) Blood no information Chart note added (no code) [facility] ([id number]) No panel information on 2018-09-20 Oxygen 94 % (no code) 94 - 100 % 09-20-2018 [facility] saturation in 11:33-0400 ([id number]) Blood no information Chart note added (no code) [facility] ([id number]) no information Chart note added (no code) [facility] ([id number]) no information Chart note added (no code) [facility] ([id number]) No panel information on 2018-09-18 Oxygen 95 % (no code) 94 - 100 % 09-18-2018 [facility] saturation in 09:57-0400 ([id number]) Blood Oxygen 95 % (no code) 94 - 100 % 09-18-2018 [facility] saturation in 11:17-0400 ([id number]) Blood No panel information on 2018-09-17 Oxygen 96 % (no code) 94 - 100 % 09-17-2018 [facility] saturation in 10:51-0400 ([id number]) Blood no information Chart note added (no code) [facility] ([id number]) No panel information on 2018-09-16 Oxygen 98 % (no code) 94 - 100 % 09-16-2018 [facility] saturation in 10:06-0400 ([id number]) Blood no information Chart note added (no code) [facility] ([id number]) No panel information on 2018-09-15 Oxygen 97 % (no code) 94 - 100 % 09-15-2018 [facility] saturation in 10:00-0400 ([id number]) Blood Oxygen 95 % (no code) 94 - 100 % 09-15-2018 [facility] saturation in 12:44-0400 ([id number]) Blood no information Chart note added (no code) [facility] ([id number]) no information Chart note added (no code) [facility] ([id number]) No panel information on 2018-09-14 Oxygen 98 % (no code) 94 - 100 % 09-14-2018 [facility] saturation in 10:31-0400 ([id number]) Blood no information Chart note added (no code) [facility] ([id number]) no information Chart note added (no code) [facility] ([id number]) No panel information on 2018-09-13 Oxygen 74 % (LL) 94 - 100 % 09-13-2018 [facility] saturation in 09:57-0400 ([id number]) Blood Oxygen 98 % (no code) 94 - 100 % 09-13-2018 [facility] saturation in 13:46-0400 ([id number]) Blood no information Chart note added (no code) [facility] ([id number]) no information Chart note added (no code) [facility] ([id number]) No panel information on 2018-09-12 Oxygen 93 % (no code) 94 - 100 % 09-12-2018 [facility] saturation in 09:20-0400 ([id number]) Blood No panel information on 2018-09-11 Oxygen 98 % (no code) 94 - 100 % 09-11-2018 [facility] saturation in 10:17-0400 ([id number]) Blood No panel information on 2018-09-10 Oxygen 98 % (no code) 94 - 100 % 09-10-2018 [facility] saturation in 10:03-0400 ([id number]) Blood no information Chart note added (no code) [facility] ([id number]) no information Chart note added (no code) [facility] ([id number]) no information Chart note added (no code) [facility] ([id number]) No panel information on 2018-09-09 Oxygen 98 % (no code) 94 - 100 % 09-09-2018 [facility] saturation in 10:26-0400 ([id number]) Blood no information Chart note added (no code) [facility] ([id number]) No panel information on 2018-09-08 Oxygen 98 % (no code) 94 - 100 % 09-08-2018 [facility] saturation in 10:11-0400 ([id number]) Blood no information Chart note added (no code) [facility] ([id number]) No panel information on 2018-09-07 Oxygen 98 % (no code) 94 - 100 % 09-07-2018 [facility] saturation in 15:56-0400 ([id number]) Blood no information Chart note added (no code) [facility] ([id number]) No panel information on 2018 Oxygen 91 % (no code) 94 - 100 % 2018 [facility] saturation in 11:09-0400 ([id number]) Blood no information Chart note added (no code) [facility] ([id number]) no information Chart note added (no code) [facility] ([id number]) no information Chart note added (no code) [facility] ([id number]) No panel information on 2018-09-04 Oxygen 98 % (no code) 94 - 100 % 09-04-2018 [facility] saturation in 10:25-0400 ([id number]) Blood No panel information on 2018-09-03 Oxygen 96 % (no code) 94 - 100 % 09-03-2018 [facility] saturation in 12:57-0400 ([id number]) Blood no information Chart note added (no code) [facility] ([id number]) no information Chart note added (no code) [facility] ([id number]) No panel information on 2018-09-02 Oxygen 97 % (no code) 94 - 100 % 09-02-2018 [facility] saturation in 11:05-0400 ([id number]) Blood no information Chart note added (no code) [facility] ([id number]) No panel information on 2018-09-01 Oxygen 99 % (no code) 94 - 100 % 09-01-2018 [facility] saturation in 15:01-0400 ([id number]) Blood no information Chart note added (no code) [facility] ([id number]) no information Chart note added (no code) [facility] ([id number]) No panel information on 2018-08-31 Oxygen 96 % (no code) 94 - 100 % 08-31-2018 [facility] saturation in 10:41-0400 ([id number]) Blood no information Chart note added (no code) [facility] ([id number]) No panel information on 2018-08-30 Oxygen 98 % (no code) 94 - 100 % 08-30-2018 [facility] saturation in 10:27-0400 ([id number]) Blood no information Chart note added (no code) [facility] ([id number]) No panel information on 2018-08-28 Oxygen 98 % (no code) 94 - 100 % 08-28-2018 [facility] saturation in 11:19-0400 ([id number]) Blood No panel information on 2018-08-27 Oxygen 98 % (no code) 94 - 100 % 08-27-2018 [facility] saturation in 11:28-0400 ([id number]) Blood no information Chart note added (no code) [facility] ([id number]) no information Chart note added (no code) [facility] ([id number]) No panel information on 2018-08-26 no information Chart note added (no code) [facility] ([id number]) no information Chart note added (no code) [facility] ([id number]) No panel information on 2018-08-25 Oxygen 98 % (no code) 94 - 100 % 08-25-2018 [facility] saturation in 16:44-0400 ([id number]) Blood No panel information on 2018-08-24 Oxygen 98 % (no code) 94 - 100 % 08-24-2018 [facility] saturation in 10:16-0400 ([id number]) Blood no information Chart note added (no code) [facility] ([id number]) No panel information on 2018-08-23 Oxygen 98 % (no code) 94 - 100 % 08-23-2018 [facility] saturation in 14:41-0400 ([id number]) Blood no information Chart note added (no code) [facility] ([id number]) no information Chart note added (no code) [facility] ([id number]) no information Chart note added (no code) [facility] ([id number]) No panel information on 2018-08-22 Oxygen 98 % (no code) 94 - 100 % 08-22-2018 [facility] saturation in 09:57-0400 ([id number]) Blood No panel information on 2018-08-21 Oxygen 98 % (no code) 94 - 100 % 08-21-2018 [facility] saturation in 11:07-0400 ([id number]) Blood No panel information on 2018-08-15 Oxygen 98 % (no code) 94 - 100 % 08-15-2018 [facility] saturation in 10:19-0400 ([id number]) Blood No panel information on 2018-08-13 Oxygen 96 % (no code) 94 - 100 % 08-13-2018 [facility] saturation in 13:55-0400 ([id number]) Blood no information Chart note added (no code) [facility] ([id number]) no information Chart note added (no code) [facility] ([id number]) No panel information on 2018-08-12 Oxygen 100 % (no code) 94 - 100 % 08-12-2018 [facility] saturation in 10:23-0400 ([id number]) Blood no information Chart note added (no code) [facility] ([id number]) No panel information on 2018-08-11 Oxygen 98 % (no code) 94 - 100 % 08-11-2018 [facility] saturation in 11:03-0400 ([id number]) Blood no information Chart note added (no code) [facility] ([id number]) No panel information on 2018-08-10 Oxygen 96 % (no code) 94 - 100 % 08-10-2018 [facility] saturation in 10:17-0400 ([id number]) Blood no information Chart note added (no code) [facility] ([id number]) no information Chart note added (no code) [facility] ([id number]) No panel information on 2018-08-09 Oxygen 98 % (no code) 94 - 100 % 08-09-2018 [facility] saturation in 10:18-0400 ([id number]) Blood no information Chart note added (no code) [facility] ([id number]) no information Chart note added (no code) [facility] ([id number]) No panel information on 2018-08-06 Oxygen 98 % (no code) 94 - 100 % 08-06-2018 [facility] saturation in 10:35-0400 ([id number]) Blood no information Chart note added (no code) [facility] ([id number]) No panel information on 2018-08-05 Oxygen 99 % (no code) 94 - 100 % 08-05-2018 [facility] saturation in 10:02-0400 ([id number]) Blood Oxygen 99 % (no code) 94 - 100 % 08-05-2018 [facility] saturation in 11:04-0400 ([id number]) Blood no information Chart note added (no code) [facility] ([id number]) No panel information on 2018-08-04 Oxygen 96 % (no code) 94 - 100 % 08-04-2018 [facility] saturation in 10:24-0400 ([id number]) Blood no information Chart note added (no code) [facility] ([id number]) No panel information on 2018-08-03 Oxygen 99 % (no code) 94 - 100 % 08-03-2018 [facility] saturation in 13:34-0400 ([id number]) Blood no information Chart note added (no code) [facility] ([id number]) no information Chart note added (no code) [facility] ([id number]) No panel information on 2018-08-02 Oxygen 98 % (no code) 94 - 100 % 08-02-2018 [facility] saturation in 11:11-0400 ([id number]) Blood no information Chart note added (no code) [facility] ([id number]) no information Chart note added (no code) [facility] ([id number]) No panel information on 2018-08-01 Oxygen 98 % (no code) 94 - 100 % 08-01-2018 [facility] saturation in 09:32-0400 ([id number]) Blood No panel information on 2018-07-31 Oxygen 95 % (no code) 94 - 100 % 07-31-2018 [facility] saturation in 10:05-0400 ([id number]) Blood No panel information on 2018-07-30 no information Chart note added (no code) [facility] ([id number]) No panel information on 2018-07-29 Oxygen 98 % (no code) 94 - 100 % 07-29-2018 [facility] saturation in 14:10-0400 ([id number]) Blood no information Chart note added (no code) [facility] ([id number]) No panel information on 2018-07-28 no information Chart note added (no code) [facility] ([id number]) No panel information on 2018-07-27 no information Chart note added (no code) [facility] ([id number]) No panel information on 2018-07-26 no information Chart note added (no code) [facility] ([id number]) no information Chart note added (no code) [facility] ([id number]) No panel information on 2018-07-23 Oxygen 97 % (no code) 94 - 100 % 07-23-2018 [facility] saturation in 10:52-0400 ([id number]) Blood no information Chart note added (no code) [facility] ([id number]) No panel information on 2018-07-22 Oxygen 98 % (no code) 94 - 100 % 07-22-2018 [facility] saturation in 11:05-0400 ([id number]) Blood No panel information on 2018-07-21 Oxygen 97 % (no code) 94 - 100 % 07-21-2018 [facility] saturation in 11:36-0400 ([id number]) Blood no information Chart note added (no code) [facility] ([id number]) No panel information on 2018-07-20 Oxygen 98 % (no code) 94 - 100 % 07-20-2018 [facility] saturation in 14:03-0400 ([id number]) Blood No panel information on 2018-07-19 Oxygen 98 % (no code) 94 - 100 % 07-19-2018 [facility] saturation in 14:21-0400 ([id number]) Blood no information Chart note added (no code) [facility] ([id number]) no information Chart note added (no code) [facility] ([id number]) No panel information on 2018-07-17 Oxygen 98 % (no code) 94 - 100 % 07-17-2018 [facility] saturation in 10:37-0400 ([id number]) Blood No panel information on 2018-07-16 Oxygen 98 % (no code) 94 - 100 % 07-16-2018 [facility] saturation in 10:21-0400 ([id number]) Blood no information Chart note added (no code) [facility] ([id number]) No panel information on 2018-07-15 Oxygen 98 % (no code) 94 - 100 % 07-15-2018 [facility] saturation in 11:38-0400 ([id number]) Blood no information Chart note added (no code) [facility] ([id number]) no information Chart note added (no code) [facility] ([id number]) No panel information on 2018-07-14 Oxygen 94 % (no code) 94 - 100 % 07-14-2018 [facility] saturation in 16:42-0400 ([id number]) Blood No panel information on 2018-07-13 no information Chart note added (no code) [facility] ([id number]) No panel information on 2018-07-12 Oxygen 98 % (no code) 94 - 100 % 07-12-2018 [facility] saturation in 13:40-0400 ([id number]) Blood no information Chart note added (no code) [facility] ([id number]) no information Chart note added (no code) [facility] ([id number]) No panel information on 2018-07-10 Oxygen 97 % (no code) 94 - 100 % 07-10-2018 [facility] saturation in 10:44-0400 ([id number]) Blood No panel information on 2018-07-09 Oxygen 96 % (no code) 94 - 100 % 07-09-2018 [facility] saturation in 11:42-0400 ([id number]) Blood No panel information on 2018-07-08 Oxygen 97 % (no code) 94 - 100 % 07-08-2018 [facility] saturation in 11:43-0400 ([id number]) Blood no information Chart note added (no code) [facility] ([id number]) no information Chart note added (no code) [facility] ([id number]) No panel information on 2018-07-07 Oxygen 97 % (no code) 94 - 100 % 07-07-2018 [facility] saturation in 17:02-0400 ([id number]) Blood No panel information on 2018-07-05 no information Chart note added (no code) [facility] ([id number]) No panel information on 2018-07-04 Oxygen 92 % (no code) 94 - 100 % 07-04-2018 [facility] saturation in 16:14-0400 ([id number]) Blood No panel information on 2018-07-03 Oxygen 97 % (no code) 94 - 100 % 07-03-2018 [facility] saturation in 10:35-0400 ([id number]) Blood No panel information on 2018-07-02 Oxygen 96 % (no code) 94 - 100 % 07-02-2018 [facility] saturation in 11:22-0400 ([id number]) Blood no information Chart note added (no code) [facility] ([id number]) No panel information on 2018-07-01 Oxygen 99 % (no code) 94 - 100 % 07-01-2018 [facility] saturation in 11:50-0400 ([id number]) Blood no information Chart note added (no code) [facility] ([id number]) No panel information on 2018-06-30 Oxygen 98 % (no code) 94 - 100 % 06-30-2018 [facility] saturation in 10:36-0400 ([id number]) Blood no information Chart note added (no code) [facility] ([id number]) No panel information on 2018-06-29 Oxygen 98 % (no code) 94 - 100 % 06-29-2018 [facility] saturation in 11:12-0400 ([id number]) Blood no information Chart note added (no code) [facility] ([id number]) no information Chart note added (no code) [facility] ([id number]) No panel information on 2018-06-28 Oxygen 99 % (no code) 94 - 100 % 06-28-2018 [facility] saturation in 13:26-0400 ([id number]) Blood no information Chart note added (no code) [facility] ([id number]) no information Chart note added (no code) [facility] ([id number]) No panel information on 2018-06-25 Oxygen 98 % (no code) 94 - 100 % 06-25-2018 [facility] saturation in 10:23-0400 ([id number]) Blood no information Chart note added (no code) [facility] ([id number]) No panel information on 2018-06-24 Oxygen 99 % (no code) 94 - 100 % 06-24-2018 [facility] saturation in 11:03-0400 ([id number]) Blood no information Chart note added (no code) [facility] ([id number]) No panel information on 2018-06-23 Oxygen 98 % (no code) 94 - 100 % 06-23-2018 [facility] saturation in 10:43-0400 ([id number]) Blood no information Chart note added (no code) [facility] ([id number]) No panel information on 2018-06-22 Albumin BCG dye 3.8 (no code) 06-22-2018 Hospital [Mass/Vol] 17:50-0400 [facility] ([id number]) ALP [Catalytic 47 U/L (no code) 44 - 147 U/L 06-22-2018 Hosp ital activity/Vol] 17:50-0400 [facility] ([id number]) ALT [Catalytic 12 U/L (no code) 4 - 40 U/L 06-22-2018 Hospit al activity/Vol] 17:50-0400 [facility] ([id number]) Anion gap 14 mmol/L (no code) 3 - 11 mmol/L 06-22-2018 Hospital [Moles/Vol] 17:50-0400 [facility] ([id number]) AST [Catalytic 23 U/L (no code) 10 - 34 U/L 06-22-2018 [facility] activity/Vol] 17:50-0400 [facility] ([id number]) Basophils (Bld) 0.0 10*3/uL (no code) 0 - 0.3 10*3/uL 06-22-2018 Hospital [#/Vol] 17:50-0400 [facility] () Basophils/100 0.20 % (no code) 0.5 - 1 % 06-22-2018 Hospital WBC (Bld) 17:50-0400 [facility] ([id number]) Bilirubin 0.3 mg/dL (no code) 0.1 - 1.2 mg/dL 06-22-2018 Hospit al [Mass/Vol] 17:50-0400 [facility] ([id number]) Calcium 9.4 mg/dL (no code) 8.5 - 10.2 mg/dL 06-22-2018 Hospi lalo [Mass/Vol] 17:50-0400 [facility] ([id number]) Chloride 99 mmol/L (no code) 95 - 106 mmol/L 06-22-2018 Hospit al [Moles/Vol] 17:50-0400 [facility] ([id number]) Creatinine 0.80 mg/dL (no code) 06-22-2018 Hospital [Mass/Vol] 17:50-0400 [facility] ([id number]) Eosinophils 0.2 10*3/uL (no code) 0.05 - 0.5 06-22-2018 Hospita l (Bld) [#/Vol] 10*3/uL 17:50-0400 [facility] ([id number]) Eosinophils/100 1.5 % (no code) 1 - 4 % 06-22-2018 Hospit al WBC (Bld) 17:50-0400 [facility] ([id number]) Erythrocyte 12.7 % (no code) 11.6 - 14.6 % 06-22-2018 Hospit al distribution 17:50-0400 [facility] width (RBC) [facility] [Ratio] ([id number]) Free T4 1.00 ng/dL (no code) 0.9 - 2.2 ng/dL 06-22-2018 Hospi lalo [Mass/Vol] 17:50-0400 [facility] ([id number]) GFR/1.73 sq 69 (no code) 90 - 120 06-22-2018 Hospital M.predicted MDRD mL/min/{1.73_m2} mL/min/{1.73_m2} 17:50-0400 [facility] (S/P/Bld) [Vol [facility] rate/Area] ([id number]) Globulin (S) 2.2 g/dL (L) 2 - 3.5 g/dL 06-22-2018 Hospit al [Mass/Vol] 17:50-0400 [facility] ([id number]) Glucose 94 mg/dL (no code) 60 - 125 mg/dL 06-22-2018 Hospita l [Mass/Vol] 17:50-0400 [facility] ([id number]) HCO3 (P) 22 (no code) 06-22-2018 Hospital [Moles/Vol] 17:50-0400 [facility] ([id number]) Hematocrit (Bld) 32.1 % (L) 36.1 - 50.3 % 06-22-2018 H ospital [Volume 17:50-0400 [facility] fraction] [facility] ([id number]) Hemoglobin (Bld) 10.9 g/dL (L) 12.1 - 17.2 g/dL 06-22-2018 Hospital [Mass/Vol] 17:50-0400 [facility] ([id number]) Lymphocytes 1.54 10*3/uL (no code) 0.9 - 2.9 06-22-2018 Hospita l (Bld) [#/Vol] 10*3/uL 17:50-0400 [facility] ([id number]) Lymphocytes/100 15.8 % (no code) 20 - 40 % 06-22-2018 Hospit al WBC (Bld) 17:50-0400 [facility] (60254) Magnesium 1.7 mg/dL (no code) 1.7 - 2.2 mg/dL 06-22-2018 Hospit al [Mass/Vol] 17:50-0400 [facility] ([id number]) MCH (RBC) 33.3 pg (H) 27 - 31 pg 06-22-2018 Hospital [Entitic mass] 17:50-0400 [facility] ([id number]) MCHC (RBC) 34.0 g/dL (no code) 32 - 36 g/dL 06-22-2018 Hospital [Mass/Vol] 17:50-0400 [facility] ([id number]) MCV (RBC) 98.2 fL (H) 80 - 100 fL 06-22-2018 Hospital [Entitic vol] 17:50-0400 [facility] ([id number]) Monocytes (Bld) 0.8 10*3/uL (no code) 0.3 - 0.9 06-22-2018 Hosp ital [#/Vol] 10*3/uL 17:50-0400 [facility] ([id number]) Monocytes/100 8.2 % (no code) 2 - 8 % 06-22-2018 Hospital WBC (Bld) 17:50-0400 [facility] ([id number]) Neutrophils 7.26 10*3/uL (H) 1.7 - 7 10*3/uL 06-22-2018 H ospital (Bld) [#/Vol] 17:50-0400 [facility] ([id number]) Neutrophils/100 74.3 % (no code) 40 - 60 % 06-22-2018 Hospit al WBC (Bld) 17:50-0400 [facility] ([id number]) Osmolality Calc 269 (L) 06-22-2018 Hospital [Osmolality] 17:50-0400 [facility] ([id number]) Oxygen 93 % (no code) 94 - 100 % 06-22-2018 [facility] saturation in 13:36-0400 ([id number]) Blood Platelet mean 11.7 fL (H) 7.2 - 11.7 fL 06-22-2018 Hosp ital volume (Bld) 17:50-0400 [facility] [Entitic vol] [facility] ([id number]) Platelets (Bld) 236 10*3/uL (no code) 150 - 450 06-22-2018 Hosp ital [#/Vol] 10*3/uL 17:50-0400 [facility] ([id number]) Potassium 4.8 mmol/L (no code) 3.7 - 5.2 mmol/L 06-22-2018 Hosp ital [Moles/Vol] 17:50-0400 [facility] ([id number]) Protein 6.0 g/dL (no code) 6.4 - 8.3 g/dL 06-22-2018 Hospita l [Mass/Vol] 17:50-0400 [facility] ([id number]) RBC (Bld) 3.27 10*6/uL (L) 4.2 - 6.1 06-22-2018 Hospital [#/Vol] 10*6/uL 17:50-0400 [facility] (76852) Sodium 130 mmol/L (L) 135 - 145 mmol/L 06-22-2018 Hosp ital [Moles/Vol] 17:50-0400 [facility] ([id number]) TSH Qn 2.31 (no code) 06-22-2018 Hospital 17:500400 [facility] ([id number]) Urea nitrogen 13 mg/dL (no code) 7 - 20 mg/dL 06-22-2018 Hospi lalo [Mass/Vol] 17:50-0400 [facility] ([id number]) WBC (Bld) 9.77 10*3/uL (no code) 3.5 - 10.5 06-22-2018 Hospital [#/Vol] 10*3/uL 17:50-0400 [facility] ([id number]) no information Chart note added (no code) [facility] ([id number]) no information Chart note added (no code) [facility] ([id number]) no information Chart note added (no code) [facility] ([id number]) No panel information on 2018-06-21 Oxygen 99 % (no code) 94 - 100 % 06-21-2018 [facility] saturation in 12:47-0400 ([id number]) Blood no information Chart note added (no code) [facility] ([id number]) No panel information on 2018-06-20 no information Chart note added (no code) [facility] ([id number]) No panel information on 2018-06-18 Oxygen 98 % (no code) 94 - 100 % 06-18-2018 [facility] saturation in 11:26-0400 ([id number]) Blood no information Chart note added (no code) [facility] ([id number]) no information Chart note added (no code) [facility] ([id number]) No panel information on 2018-06-17 Oxygen 98 % (no code) 94 - 100 % 06-17-2018 [facility] saturation in 09:46-0400 ([id number]) Blood no information Chart note added (no code) [facility] ([id number]) No panel information on 2018-06-16 Oxygen 99 % (no code) 94 - 100 % 06-16-2018 [facility] saturation in 10:13-0400 ([id number]) Blood no information Chart note added (no code) [facility] ([id number]) no information Chart note added (no code) [facility] ([id number]) No panel information on 2018-06-15 Oxygen 99 % (no code) 94 - 100 % 06-15-2018 [facility] saturation in 09:41-0400 ([id number]) Blood Oxygen 98 % (no code) 94 - 100 % 06-15-2018 [facility] saturation in 14:43-0400 ([id number]) Blood no information Chart note added (no code) [facility] ([id number]) no information Chart note added (no code) [facility] ([id number]) No panel information on 2018-06-14 Oxygen 97 % (no code) 94 - 100 % 06-14-2018 [facility] saturation in 10:42-0400 ([id number]) Blood no information Chart note added (no code) [facility] ([id number]) no information Chart note added (no code) [facility] ([id number]) No panel information on 2018-06-13 Oxygen 92 % (no code) 94 - 100 % 06-13-2018 [facility] saturation in 09:55-0400 ([id number]) Blood No panel information on 2018-06-12 Oxygen 91 % (no code) 94 - 100 % 06-12-2018 [facility] saturation in 10:19-0400 ([id number]) Blood No panel information on 2018-06-11 Oxygen 97 % (no code) 94 - 100 % 06-11-2018 [facility] saturation in 11:20-0400 ([id number]) Blood no information Chart note added (no code) [facility] ([id number]) No panel information on 2018-06-10 Oxygen 99 % (no code) 94 - 100 % 06-10-2018 [facility] saturation in 10:19-0400 ([id number]) Blood no information Chart note added (no code) [facility] ([id number]) No panel information on 2018-06-09 Oxygen 99 % (no code) 94 - 100 % 06-09-2018 [facility] saturation in 12:42-0400 ([id number]) Blood no information Chart note added (no code) [facility] ([id number]) no information Chart note added (no code) [facility] ([id number]) No panel information on 2018-06-08 Oxygen 96 % (no code) 94 - 100 % 06-08-2018 [facility] saturation in 16:50-0400 ([id number]) Blood No panel information on 2018-06-07 Oxygen 99 % (no code) 94 - 100 % 06-07-2018 [facility] saturation in 13:38-0400 ([id number]) Blood no information Chart note added (no code) [facility] ([id number]) no information Chart note added (no code) [facility] ([id number]) No panel information on 2018-06-04 Oxygen 98 % (no code) 94 - 100 % 06-04-2018 [facility] saturation in 12:06-0400 ([id number]) Blood no information Chart note added (no code) [facility] ([id number]) No panel information on 2018-06-03 Oxygen 98 % (no code) 94 - 100 % 06-03-2018 [facility] saturation in 11:43-0400 ([id number]) Blood no information Chart note added (no code) [facility] ([id number]) no information Chart note added (no code) [facility] ([id number]) No panel information on 2018-06-02 Oxygen 98 % (no code) 94 - 100 % 06-02-2018 [facility] saturation in 10:52-0400 ([id number]) Blood no information Chart note added (no code) [facility] ([id number]) No panel information on 2018-06-01 Oxygen 99 % (no code) 94 - 100 % 06-01-2018 [facility] saturation in 15:09-0400 ([id number]) Blood no information Chart note added (no code) [facility] ([id number]) No panel information on 2018-05-31 Oxygen 99 % (no code) 94 - 100 % 05-31-2018 [facility] saturation in 14:32-0400 ([id number]) Blood no information Chart note added (no code) [facility] ([id number]) no information Chart note added (no code) [facility] ([id number]) No panel information on 2018-05-29 Oxygen 98 % (no code) 94 - 100 % 05-29-2018 [facility] saturation in 11:46-0500 ([id number]) Blood No panel information on 2018-05-28 Oxygen 98 % (no code) 94 - 100 % 05-28-2018 [facility] saturation in 10:53-0500 ([id number]) Blood no information Chart note added (no code) [facility] ([id number]) No panel information on 2018-05-27 Oxygen 97 % (no code) 94 - 100 % 05-27-2018 [facility] saturation in 09:24-0500 ([id number]) Blood Oxygen 98 % (no code) 94 - 100 % 05-27-2018 [facility] saturation in 11:02-0500 ([id number]) Blood no information Chart note added (no code) [facility] ([id number]) No panel information on 2018-05-26 Oxygen 98 % (no code) 94 - 100 % 05-26-2018 [facility] saturation in 10:36-0500 ([id number]) Blood no information Chart note added (no code) [facility] ([id number]) No panel information on 2018-05-24 no information Chart note added (no code) [facility] ([id number]) no information Chart note added (no code) [facility] ([id number]) No panel information on 2018-05-22 Oxygen 99 % (no code) 94 - 100 % 05-22-2018 [facility] saturation in 12:17-0500 ([id number]) Blood No panel information on 2018-05-21 FLUAV and FLUBV no information (no code) 05-21-2018 Hospita l Ag IA.rapid Nom 19:30-0500 [facility] ([id number]) Oxygen 98 % (no code) 94 - 100 % 05-21-2018 [facility] saturation in 16:40-0500 ([id number]) Blood No panel information on 2018-05-19 Oxygen 98 % (no code) 94 - 100 % 05-19-2018 [facility] saturation in 10:34-0500 ([id number]) Blood no information Chart note added (no code) [facility] ([id number]) No panel information on 2018-05-18 Oxygen 99 % (no code) 94 - 100 % 05-18-2018 [facility] saturation in 10:49-0500 ([id number]) Blood no information Chart note added (no code) [facility] ([id number]) no information Chart note added (no code) [facility] ([id number]) No panel information on 2018-05-17 Oxygen 98 % (no code) 94 - 100 % 05-17-2018 [facility] saturation in 11:50-0500 ([id number]) Blood no information Chart note added (no code) [facility] ([id number]) no information Chart note added (no code) [facility] ([id number]) No panel information on 2018-05-15 Oxygen 98 % (no code) 94 - 100 % 05-15-2018 [facility] saturation in 16:35-0500 ([id number]) Blood No panel information on 2018-05-14 Oxygen 97 % (no code) 94 - 100 % 05-14-2018 [facility] saturation in 10:39-0500 ([id number]) Blood no information Chart note added (no code) [facility] ([id number]) No panel information on 2018-05-13 no information Chart note added (no code) [facility] ([id number]) No panel information on 2018-05-12 no information Chart note added (no code) [facility] ([id number]) no information Chart note added (no code) [facility] ([id number]) No panel information on 2018-05-11 Oxygen 97 % (no code) 94 - 100 % 05-11-2018 [facility] saturation in 14:04-0500 ([id number]) Blood no information Chart note added (no code) [facility] ([id number]) No panel information on 2018-05-10 Oxygen 97 % (no code) 94 - 100 % 05-10-2018 [facility] saturation in 14:02-0500 ([id number]) Blood no information Chart note added (no code) [facility] ([id number]) no information Chart note added (no code) [facility] ([id number]) no information Chart note added (no code) [facility] ([id number]) No panel information on 2018-05-08 Oxygen 89 % (L) 94 - 100 % 05-08-2018 [facility] saturation in 10:37-0500 ([id number]) Blood No panel information on 2018-05-07 Oxygen 98 % (no code) 94 - 100 % 05-07-2018 [facility] saturation in 11:41-0500 ([id number]) Blood no information Chart note added (no code) [facility] ([id number]) No panel information on 2018-05-06 Oxygen 100 % (no code) 94 - 100 % 05-06-2018 [facility] saturation in 10:41-0500 ([id number]) Blood no information Chart note added (no code) [facility] ([id number]) No panel information on 2018-05-05 Oxygen 95 % (no code) 94 - 100 % 05-05-2018 [facility] saturation in 10:44-0500 ([id number]) Blood no information Chart note added (no code) [facility] ([id number]) No panel information on 2018-05-04 Oxygen 99 % (no code) 94 - 100 % 05-04-2018 [facility] saturation in 14:01-0500 ([id number]) Blood no information Chart note added (no code) [facility] ([id number]) No panel information on 2018-05-03 Oxygen 97 % (no code) 94 - 100 % 05-03-2018 [facility] saturation in 10:53-0500 ([id number]) Blood no information Chart note added (no code) [facility] ([id number]) no information Chart note added (no code) [facility] ([id number]) no information Chart note added (no code) [facility] ([id number]) No panel information on 2018-05-02 Oxygen 99 % (no code) 94 - 100 % 05-02-2018 [facility] saturation in 09:22-0500 ([id number]) Blood No panel information on 2018-05-01 Oxygen 98 % (no code) 94 - 100 % 05-01-2018 [facility] saturation in 12:21-0500 ([id number]) Blood No panel information on 2018-04-30 no information Chart note added (no code) [facility] ([id number]) No panel information on 2018-04-29 no information Chart note added (no code) [facility] ([id number]) no information Chart note added (no code) [facility] ([id number]) No panel information on 2018-04-28 Oxygen 98 % (no code) 94 - 100 % 04-28-2018 [facility] saturation in 10:46-0500 ([id number]) Blood no information Chart note added (no code) [facility] ([id number]) no information Chart note added (no code) [facility] ([id number]) No panel information on 2018-04-27 Oxygen 99 % (no code) 94 - 100 % 04-27-2018 [facility] saturation in 13:56-0500 ([id number]) Blood no information Chart note added (no code) [facility] ([id number]) no information Chart note added (no code) [facility] ([id number]) No panel information on 2018-04-26 Oxygen 98 % (no code) 94 - 100 % 04-26-2018 [facility] saturation in 10:01-0500 ([id number]) Blood no information Chart note added (no code) [facility] ([id number]) no information Chart note added (no code) [facility] ([id number]) no information Chart note added (no code) [facility] ([id number]) No panel information on 2018-04-23 Oxygen 98 % (no code) 94 - 100 % 04-23-2018 [facility] saturation in 10:40-0500 ([id number]) Blood no information Chart note added (no code) [facility] ([id number]) No panel information on 2018-04-22 Oxygen 98 % (no code) 94 - 100 % 04-22-2018 [facility] saturation in 12:19-0500 ([id number]) Blood no information Chart note added (no code) [facility] ([id number]) No panel information on 2018-04-21 Oxygen 98 % (no code) 94 - 100 % 04-21-2018 [facility] saturation in 13:10-0500 ([id number]) Blood no information Chart note added (no code) [facility] ([id number]) No panel information on 2018-04-20 Oxygen 98 % (no code) 94 - 100 % 04-20-2018 [facility] saturation in 11:17-0500 ([id number]) Blood no information Chart note added (no code) [facility] ([id number]) No panel information on 2018-04-19 Oxygen 99 % (no code) 94 - 100 % 04-19-2018 [facility] saturation in 13:48-0500 ([id number]) Blood no information Chart note added (no code) [facility] ([id number]) no information Chart note added (no code) [facility] ([id number]) no information Chart note added (no code) [facility] ([id number]) No panel information on 2018-04-18 Oxygen 98 % (no code) 94 - 100 % 04-18-2018 [facility] saturation in 09:56-0500 ([id number]) Blood No panel information on 2018-04-16 Oxygen 99 % (no code) 94 - 100 % 04-16-2018 [facility] saturation in 09:28-0500 ([id number]) Blood Oxygen 99 % (no code) 94 - 100 % 04-16-2018 [facility] saturation in 10:31-0500 ([id number]) Blood no information Chart note added (no code) [facility] ([id number]) no information Chart note (no code) [facility] updated () No panel information on 2018-04-15 Albumin BCG dye 3.8 (no code) 04-15-2018 Hospital [Mass/Vol] 20:050 [facility] ([id number]) ALP [Catalytic 51 U/L (no code) 44 - 147 U/L 04-15-2018 Hosp ital activity/Vol] 20: [facility] () ALT [Catalytic 9 U/L (no code) 4 - 40 U/L 04-15-2018 Hospit al activity/Vol] 20:050 [facility] ([id number]) Anion gap 15 mmol/L (H) 3 - 11 mmol/L 04-15-2018 Hospital [Moles/Vol] 20:050 [facility] ([id number]) AST [Catalytic 21 U/L (no code) 10 - 34 U/L 04-15-2018 Hospi lalo activity/Vol] 20:000500 [facility] ([id number]) Basophils (Bld) 0.0 10*3/uL (no code) 0 - 0.3 10*3/uL 04-15-2018 Hospital [#/Vol] 20:0500 [facility] ([id number]) Basophils/100 0.20 % (no code) 0.5 - 1 % 04-15-2018 Hospital WBC (Bld) :050 [facility] ([id number]) Bilirubin 0.3 mg/dL (no code) 0.1 - 1.2 mg/dL 04-15-2018 Hospit al [Mass/Vol] 20:050 [facility] ([id number]) Calcium 8.9 mg/dL (no code) 8.5 - 10.2 mg/dL 04-15-2018 Hospi lalo [Mass/Vol] 20:000500 [facility] ([id number]) Chloride 98 mmol/L (no code) 95 - 106 mmol/L 04-15-2018 Hospit al [Moles/Vol] 20:000500 [facility] ([id number]) Cobalamin 921.00 pg/mL (H) 200 - 900 pg/mL 04-15-2018 Hos pital (Vitamin B12) 20:00050 [facility] [Mass/Vol] [facility] ([id number]) Creatinine 0.86 mg/dL (no code) 04-15-2018 Hospital [Mass/Vol] 20:050 [facility] ([id number]) Eosinophils 0.1 10*3/uL (no code) 0.05 - 0.5 04-15-2018 Hospita l (Bld) [#/Vol] 10*3/uL 20:050 [facility] ([id number]) Eosinophils/100 1.3 % (no code) 1 - 4 % 04-15-2018 Hospit al WBC (Bld) 20:00050 [facility] ([id number]) Erythrocyte 12.0 % (no code) 11.6 - 14.6 % 04-15-2018 Hospit al distribution :00050 [facility] width (RBC) [facility] [Ratio] ([id number]) GFR/1.73 sq 63 (no code) 90 - 120 04-15-2018 Hospital M.predicted MDRD mL/min/{1.73_m2} mL/min/{1.73_m2} 20:00050 [facility] (S/P/Bld) [Vol [facility] rate/Area] ([id number]) Globulin (S) 1.9 g/dL (L) 2 - 3.5 g/dL 04-15-2018 Hospit al [Mass/Vol] 20:000500 [facility] ([id number]) Glucose 109 mg/dL (no code) 60 - 125 mg/dL 04-15-2018 Hospita l [Mass/Vol] 20:000500 [facility] (24653) HCO3 (P) 23 (no code) 04-15-2018 Hospital [Moles/Vol] 20:000500 [facility] (69207) Hematocrit (Bld) 30.5 % (L) 36.1 - 50.3 % 04-15-2018 H ospital [Volume 20:000500 [facility] fraction] [facility] ([id number]) Hemoglobin (Bld) 10.3 g/dL (L) 12.1 - 17.2 g/dL 04-15-2018 Hospital [Mass/Vol] 20:000500 [facility] ([id number]) Lymphocytes 1.94 10*3/uL (no code) 0.9 - 2.9 04-15-2018 Hospita l (Bld) [#/Vol] 10*3/uL 20:000500 [facility] ([id number]) Lymphocytes/100 18.0 % (no code) 20 - 40 % 04-15-2018 Hospit al WBC (Bld) 20:000500 [facility] ([id number]) MCH (RBC) 33.1 pg (H) 27 - 31 pg 04-15-2018 Hospital [Entitic mass] 20:000500 [facility] ([id number]) MCHC (RBC) 33.8 g/dL (no code) 32 - 36 g/dL 04-15-2018 Hospital [Mass/Vol] 20:000500 [facility] ([id number]) MCV (RBC) 98.1 fL (H) 80 - 100 fL 04-15-2018 Hospital [Entitic vol] 20:000500 [facility] ([id number]) Monocytes (Bld) 1.1 10*3/uL (H) 0.3 - 0.9 04-15-2018 Hosp ital [#/Vol] 10*3/uL 20:000500 [facility] (73645) Monocytes/100 10.6 % (no code) 2 - 8 % 04-15-2018 Hospital WBC (Bld) 20:000500 [facility] ([id number]) Neutrophils 7.56 10*3/uL (H) 1.7 - 7 10*3/uL 04-15-2018 H ospital (Bld) [#/Vol] 20:000500 [facility] (03182) Neutrophils/100 69.9 % (no code) 40 - 60 % 04-15-2018 Hospit al WBC (Bld) 20:000500 [facility] ([id number]) Osmolality Calc 273 (L) 04-15-2018 Hospital [Osmolality] 20:0500 [facility] ([id number]) Oxygen 99 % (no code) 94 - 100 % 04-15-2018 [facility] saturation in 09:59-0500 ([id number]) Blood Oxygen 99 % (no code) 94 - 100 % 04-15-2018 [facility] saturation in 12:29-0500 ([id number]) Blood Platelet mean 11.3 fL (H) 7.2 - 11.7 fL 04-15-2018 Hosp ital volume (Bld) 20:0500 [facility] [Entitic vol] [facility] ([id number]) Platelets (Bld) 286 10*3/uL (no code) 150 - 450 04-15-2018 Hosp ital [#/Vol] 10*3/uL 20:000500 [facility] ([id number]) Potassium 5.0 mmol/L (no code) 3.7 - 5.2 mmol/L 04-15-2018 Hosp ital [Moles/Vol] 20:000500 [facility] ([id number]) Protein 5.7 g/dL (L) 6.4 - 8.3 g/dL 04-15-2018 Hospita l [Mass/Vol] 20:0500 [facility] ([id number]) RBC (Bld) 3.11 10*6/uL (L) 4.2 - 6.1 04-15-2018 Hospital [#/Vol] 10*6/uL :0500 [facility] (37206) Sodium 131 mmol/L (L) 135 - 145 mmol/L 04-15-2018 Hosp ital [Moles/Vol] 20:000500 [facility] ([id number]) Urea nitrogen 18 mg/dL (no code) 7 - 20 mg/dL 04-15-2018 Hospi lalo [Mass/Vol] 20:00-0500 [facility] ([id number]) WBC (Bld) 10.80 10*3/uL (H) 3.5 - 10.5 04-15-2018 Hospita l [#/Vol] 10*3/uL 20:00-0500 [facility] ([id number]) no information Chart note added (no code) [facility] ([id number]) no information Chart note added (no code) [facility] ([id number]) No panel information on 2018-04-14 Oxygen 98 % (no code) 94 - 100 % 04-14-2018 [facility] saturation in 10:42-0500 ([id number]) Blood no information Chart note added (no code) [facility] ([id number]) No panel information on 2018-04-13 Oxygen 99 % (no code) 94 - 100 % 04-13-2018 [facility] saturation in 14:54-0500 ([id number]) Blood no information Chart note added (no code) [facility] ([id number]) no information Chart note added (no code) [facility] ([id number]) no information Chart note added (no code) [facility] ([id number]) No panel information on 2018-04-12 Oxygen 99 % (no code) 94 - 100 % 04-12-2018 [facility] saturation in 17:53-0500 ([id number]) Blood no information Chart note added (no code) [facility] ([id number]) No panel information on 2018-04-10 Oxygen 99 % (no code) 94 - 100 % 04-10-2018 [facility] saturation in 10:19-0500 ([id number]) Blood No panel information on 2018-04-09 Oxygen 98 % (no code) 94 - 100 % 04-09-2018 [facility] saturation in 15:10-0500 ([id number]) Blood no information Chart note added (no code) [facility] ([id number]) No panel information on 2018-04-08 Oxygen 98 % (no code) 94 - 100 % 04-08-2018 [facility] saturation in 10:08-0500 ([id number]) Blood no information Chart note added (no code) [facility] ([id number]) No panel information on 2018-04-07 Oxygen 99 % (no code) 94 - 100 % 04-07-2018 [facility] saturation in 10:50-0500 ([id number]) Blood no information Chart note added (no code) [facility] ([id number]) no information Chart note added (no code) [facility] ([id number]) No panel information on 2018-04-06 Anion gap 13 mmol/L (no code) 3 - 11 mmol/L 04-06-2018 Hospital [Moles/Vol] 06:25050 [facility] ([id number]) Bacteria LM Ql no information (no code) 04-06-2018 Hospital (Urine sed) 01: [address] ([id number]) Basophils (Bld) 0.0 10*3/uL (no code) 0 - 0.3 10*3/uL 04-06-2018 Hospital [#/Vol] 06:25050 [facility] ([id number]) Basophils/100 0.30 % (no code) 0.5 - 1 % 04-06-2018 Hospital WBC (Bld) 06: [facility] ([id number]) Bilirubin N/A (A) 04-06-2018 Hospital Confirm Ql (U) 01: [facility] ([id number]) Bilirubin Ql (U) no information (no code) 04-06-2018 Hospit al 01: [address] ([id number]) Calcium 9.2 mg/dL (no code) 8.5 - 10.2 mg/dL 04-06-2018 Hospi lalo [Mass/Vol] 06:250500 [facility] ([id number]) Chloride (U) 66.00 mmol/L (H) 04-06-2018 Hospital [Moles/Vol] 01: [facility] [address] ([id number]) Chloride 101 mmol/L (no code) 95 - 106 mmol/L 04-06-2018 Hospi lalo [Moles/Vol] 06:250500 [facility] [address] ([id number]) Clarity (U) Clear (no code) 04-06-2018 Hospital 01: [facility] ([id number]) Color (U) Yellow (no code) 04-06-2018 Hospital 01: [facility] (41221) Creatinine 0.76 mg/dL (no code) 04-06-2018 Hospital [Mass/Vol] 06: [facility] ([id number]) CRP [Mass/Vol] 0.05 (no code) 04-06-2018 Hospital 06: [facility] ([id number]) Eosinophils 0.3 10*3/uL (no code) 0.05 - 0.5 04-06-2018 Hospita l (Bld) [#/Vol] 10*3/uL 06: [facility] (69598) Eosinophils/100 2.3 % (no code) 1 - 4 % 04-06-2018 Hospit al WBC (Bld) 06: [facility] ([id number]) Epithelial 0-5/HPF (A) 04-06-2018 Hospital cells.squamous 01: [facility] LM.HPF (Urine [facility] sed) [#/Area] () Erythrocyte 12.0 % (no code) 11.6 - 14.6 % 04-06-2018 Hospit al distribution 06: [facility] width (RBC) [facility] [Ratio] ([id number]) Free T4 0.93 ng/dL (no code) 0.9 - 2.2 ng/dL 04-06-2018 Hospi lalo [Mass/Vol] 06: [facility] (62153) GFR/1.73 sq 73 (no code) 90 - 120 04-06-2018 Hospital M.predicted MDRD mL/min/{1.73_m2} mL/min/{1.73_m2} 06: [facility] (S/P/Bld) [Vol [facility] rate/Area] ([id number]) Glucose 83 mg/dL (no code) 60 - 125 mg/dL 04-06-2018 Hospita l [Mass/Vol] 06: [facility] (88277) Glucose Test no information (no code) 04-06-2018 Hospital strip (U) 01: [facility] [Mass/Vol] [facility] ([id number]) HCO3 (P) 23 (no code) 04-06-2018 Hospital [Moles/Vol] 06: [facility] (43542) Hematocrit (Bld) 30.7 % (L) 36.1 - 50.3 % 04-06-2018 H ospital [Volume 06: [facility] fraction] [facility] ([id number]) Hemoglobin (Bld) 10.4 Result (L) 04-06-2018 Hospital [Mass/Vol] Verified by 06: [facility] Repeat Analysis [facility] ([id number]) Hemoglobin Ql no information (no code) 04-06-2018 Hospital (U) 01: [facility] (22199) Ketones (U) no information (no code) 04-06-2018 Hospital [Mass/Vol] 01: [facility] ([id number]) Leukocyte no information (no code) 04-06-2018 Hospital esterase Test 01: [facility] strip Ql (U) [facility] ([id number]) Lymphocytes 2.66 10*3/uL (no code) 0.9 - 2.9 04-06-2018 Hospita l (Bld) [#/Vol] 10*3/uL 06: [facility] ([id number]) Lymphocytes/100 22.7 % (no code) 20 - 40 % 04-06-2018 Hospit al WBC (Bld) 06: [facility] (90161) MCH (RBC) 33.4 pg (H) 27 - 31 pg 04-06-2018 Hospital [Entitic mass] 06: [facility] ([id number]) MCHC (RBC) 33.9 g/dL (no code) 32 - 36 g/dL 04-06-2018 Hospital [Mass/Vol] 06:050 [facility] (55936) MCV (RBC) 98.7 fL (H) 80 - 100 fL 04-06-2018 Hospital [Entitic vol] 06: [facility] (09212) Monocytes (Bld) 1.0 10*3/uL (H) 0.3 - 0.9 04-06-2018 Hosp ital [#/Vol] 10*3/uL 06:050 [facility] (71815) Monocytes/100 8.2 % (no code) 2 - 8 % 04-06-2018 Hospital WBC (Bld) 06: [facility] (87219) Neutrophils 7.78 10*3/uL (H) 1.7 - 7 10*3/uL 04-06-2018 H ospital (Bld) [#/Vol] 06: [facility] (24350) Neutrophils/100 66.5 % (no code) 40 - 60 % 04-06-2018 Hospit al WBC (Bld) 06: [facility] (06265) Nitrite Ql (U) no information (no code) 04-06-2018 Hospital 01: [facility] (47934) Osmolality Calc 271 (L) 04-06-2018 Hospital [Osmolality] 06: [facility] ([id number]) pH (U) 7.0 [pH] (no code) 4.6 - 8 [pH] 04-06-2018 Hospital 01: [facility] (95654) Platelet mean 11.3 fL (H) 7.2 - 11.7 fL 04-06-2018 Hosp ital volume (Bld) 06: [facility] [Entitic vol] [facility] (91133) Platelets (Bld) 256 10*3/uL (no code) 150 - 450 04-06-2018 Hosp ital [#/Vol] 10*3/uL 06: [facility] (39050) Potassium (U) 22.60 mmol/L (H) 04-06-2018 Hospital [Moles/Vol] 01: [facility] (72037) Potassium 4.6 mmol/L (no code) 3.7 - 5.2 mmol/L 04-06-2018 Hosp ital [Moles/Vol] 06: [facility] (10702) Protein (U) no information (no code) 0 - 20 mg/dL 04-06-2018 Ho spital [Mass/Vol] 01: [facility] () RBC (Bld) 3.11 10*6/uL (L) 4.2 - 6.1 04-06-2018 Hospital [#/Vol] 10*6/uL 06: [facility] ([id number]) RBC LM.HPF 0-2/HPF (A) 04-06-2018 Hospital (Urine sed) 01: [facility] [#/Area] [facility] () Sodium (U) 71.00 mmol/L (H) 0 - 20 mmol/L 04-06-2018 Hosp ital [Moles/Vol] 01: [facility] () Sodium 132 mmol/L (L) 135 - 145 mmol/L 04-06-2018 Hosp ital [Moles/Vol] 06: [facility] () Specific gravity 1.015 (no code) 04-06-2018 Hospital (U) [Rel 01: [facility] density] [facility] ([id number]) TSH Qn 3.27 (no code) 04-06-2018 Hospital 06: [facility] () Urea nitrogen 9 mg/dL (no code) 7 - 20 mg/dL 04-06-2018 Hospi lalo [Mass/Vol] 06: [facility] ([id number]) Urine Volume Urine Volume (no code) 04-06-2018 Hospital Sufficient 01: [facility] (10mL) [facility] (31586) Urobilinogen Qn 0.2 (no code) 04-06-2018 Hospital (U) 01: [facility] () WBC (Bld) 11.70 Result (H) 04-06-2018 Hospital [#/Vol] Verified by 06: [facility] Repeat Analysis [place] ([id number]) WBC LM.HPF Rare/HPF (A) 04-06-2018 Hospital (Urine sed) [facility] [#/Area] [facility] ([id number]) no information Chart note added (no code) [facility] ([id number]) no information Urine Saved if (A) 04-06-2018 Hospital Culture Needed [facility] (48hrs from time [facility] of collection) ([id number]) No panel information on 2018-04-05 Albumin BCG dye 4.5 (no code) 04-05-2018 Hospital [Mass/Vol] 22: [facility] ([id number]) ALP [Catalytic 53 U/L (no code) 44 - 147 U/L 04-05-2018 Hosp ital activity/Vol] 22: [facility] () ALT [Catalytic 13 U/L (no code) 4 - 40 U/L 04-05-2018 Hospit al activity/Vol] 22:15050 [facility] () Anion gap 15 mmol/L (H) 3 - 11 mmol/L 04-05-2018 Hospital [Moles/Vol] 22:15050 [facility] () AST [Catalytic 26 U/L (no code) 10 - 34 U/L 04-05-2018 Hospi lalo activity/Vol] 22:150500 [facility] () Basophils (Bld) 0.0 10*3/uL (no code) 0 - 0.3 10*3/uL 04-05-2018 Hospital [#/Vol] 22:150500 [facility] () Basophils/100 0.20 % (no code) 0.5 - 1 % 04-05-2018 Hospital WBC (Bld) : [facility] () Bilirubin 0.4 mg/dL (no code) 0.1 - 1.2 mg/dL 04-05-2018 Hospit al [Mass/Vol] 22:050 [facility] () Calcium 10.0 mg/dL (no code) 8.5 - 10.2 mg/dL 04-05-2018 Hosp ital [Mass/Vol] 22:150500 [facility] (94017) Chloride 97 mmol/L (no code) 95 - 106 mmol/L 04-05-2018 Hospit al [Moles/Vol] 22:150500 [facility] ([id number]) Creatinine 0.83 mg/dL (no code) 04-05-2018 Hospital [Mass/Vol] 22:15050 [facility] (75095) Eosinophils 0.3 10*3/uL (no code) 0.05 - 0.5 04-05-2018 Hospita l (Bld) [#/Vol] 10*3/uL 22:15050 [facility] (62035) Eosinophils/100 2.0 % (no code) 1 - 4 % 04-05-2018 Hospit al WBC (Bld) 22:15 [facility] () Erythrocyte 12.1 % (no code) 11.6 - 14.6 % 04-05-2018 Hospit al distribution 22:15 [facility] width (RBC) [facility] [Ratio] ([id number]) GFR/1.73 sq 66 (no code) 90 - 120 04-05-2018 Hospital M.predicted MDRD mL/min/{1.73_m2} mL/min/{1.73_m2} 22:15050 [facility] (S/P/Bld) [Vol [facility] rate/Area] ([id number]) Globulin (S) 2.6 g/dL (no code) 2 - 3.5 g/dL 04-05-2018 Hospit al [Mass/Vol] 22:15050 [facility] (77153) Glucose 97 mg/dL (no code) 60 - 125 mg/dL 04-05-2018 Hospita l [Mass/Vol] 22:150500 [facility] (02881) HCO3 (P) 22 (no code) 04-05-2018 Hospital [Moles/Vol] 22:15050 [facility] (04974) Hematocrit (Bld) 34.5 % (L) 36.1 - 50.3 % 04-05-2018 H ospital [Volume 22:15-0500 [facility] fraction] [facility] ([id number]) Hemoglobin (Bld) 11.6 g/dL (L) 12.1 - 17.2 g/dL 04-05-2018 Hospital [Mass/Vol] 22:15-0500 [facility] (48312) Lymphocytes 2.73 10*3/uL (no code) 0.9 - 2.9 04-05-2018 Hospita l (Bld) [#/Vol] 10*3/uL 22:150500 [facility] (49001) Lymphocytes/100 21.4 % (no code) 20 - 40 % 04-05-2018 Hospit al WBC (Bld) 22:150500 [facility] (86072) MCH (RBC) 32.9 pg (H) 27 - 31 pg 04-05-2018 Hospital [Entitic mass] 22:150500 [facility] ([id number]) MCHC (RBC) 33.6 g/dL (no code) 32 - 36 g/dL 04-05-2018 Hospital [Mass/Vol] 22:15-0500 [facility] (89016) MCV (RBC) 97.7 fL (H) 80 - 100 fL 04-05-2018 Hospital [Entitic vol] 22:15-0500 [facility] (59673) Monocytes (Bld) 1.3 10*3/uL (H) 0.3 - 0.9 04-05-2018 Hosp ital [#/Vol] 10*3/uL 22:15-0500 [facility] (03448) Monocytes/100 10.0 % (no code) 2 - 8 % 04-05-2018 Hospital WBC (Bld) 22:150500 [facility] (24601) Neutrophils 8.48 10*3/uL (H) 1.7 - 7 10*3/uL 04-05-2018 H ospital (Bld) [#/Vol] 22:150500 [facility] (97310) Neutrophils/100 66.4 % (no code) 40 - 60 % 04-05-2018 Hospit al WBC (Bld) 22:150500 [facility] ([id number]) Osmolality Calc 267 (L) 04-05-2018 Hospital [Osmolality] 22:150500 [facility] (94505) Oxygen 99 % (no code) 94 - 100 % 04-05-2018 [facility] saturation in 10:050 ([id number]) Blood Platelet mean 10.9 fL (H) 7.2 - 11.7 fL 04-05-2018 Hosp ital volume (Bld) 22:150500 [facility] [Entitic vol] [facility] (97645) Platelets (Bld) 298 10*3/uL (no code) 150 - 450 04-05-2018 Hosp ital [#/Vol] 10*3/uL 22:150500 [facility] () Potassium 5.1 mmol/L (no code) 3.7 - 5.2 mmol/L 04-05-2018 Hosp ital [Moles/Vol] 22:150500 [facility] (35469) Protein 7.1 g/dL (no code) 6.4 - 8.3 g/dL 04-05-2018 Hospita l [Mass/Vol] 22:150500 [facility] (13084) RBC (Bld) 3.53 10*6/uL (L) 4.2 - 6.1 04-05-2018 Hospital [#/Vol] 10*6/uL 22:150500 [facility] (25853) Sodium 129 mmol/L (L) 135 - 145 mmol/L 04-05-2018 Hosp ital [Moles/Vol] 22:150500 [facility] (43502) Urea nitrogen 12 mg/dL (no code) 7 - 20 mg/dL 04-05-2018 Hospi lalo [Mass/Vol] 22:150500 [facility] ([id number]) WBC (Bld) 12.78 10*3/uL (H) 3.5 - 10.5 04-05-2018 Hospita l [#/Vol] 10*3/uL 22:15-0500 [facility] (57895) no information Chart note added (no code) [facility] ([id number]) no information Chart note added (no code) [facility] ([id number]) No panel information on 2018-04-04 Oxygen 99 % (no code) 94 - 100 % 04-04-2018 [facility] saturation in 09:55-0500 ([id number]) Blood No panel information on 2018-04-03 Oxygen 98 % (no code) 94 - 100 % 04-03-2018 [facility] saturation in 11:20-0500 ([id number]) Blood No panel information on 2018-04-02 Oxygen 96 % (no code) 94 - 100 % 04-02-2018 [facility] saturation in 11:23-0500 ([id number]) Blood no information Chart note added (no code) [facility] ([id number]) No panel information on 2018-03-31 Oxygen 99 % (no code) 94 - 100 % 03-31-2018 [facility] saturation in 10:13-0500 ([id number]) Blood no information Chart note added (no code) [facility] ([id number]) No panel information on 2018-03-30 Oxygen 94 % (no code) 94 - 100 % 03-30-2018 [facility] saturation in 13:56-0500 ([id number]) Blood no information Chart note added (no code) [facility] ([id number]) No panel information on 2018-03-29 Oxygen 97 % (no code) 94 - 100 % 03-29-2018 [facility] saturation in 14:39-0500 ([id number]) Blood no information Chart note added (no code) [facility] ([id number]) no information Chart note added (no code) [facility] ([id number]) No panel information on 2018-03-27 Oxygen 97 % (no code) 94 - 100 % 03-27-2018 [facility] saturation in 10:22-0500 ([id number]) Blood No panel information on 2018-03-26 Oxygen 84 % (LL) 94 - 100 % 03-26-2018 [facility] saturation in 09:53-0500 ([id number]) Blood no information Chart note added (no code) [facility] ([id number]) No panel information on 2018-03-25 Oxygen 97 % (no code) 94 - 100 % 03-25-2018 [facility] saturation in 10:35-0500 ([id number]) Blood no information Chart note added (no code) [facility] ([id number]) No panel information on 2018-03-24 Oxygen 96 % (no code) 94 - 100 % 03-24-2018 [facility] saturation in 17:18-0500 ([id number]) Blood no information Chart note added (no code) [facility] ([id number]) No panel information on 2018-03-22 no information Chart note added (no code) [facility] ([id number]) No panel information on 2018-03-20 Oxygen 95 % (no code) 94 - 100 % 03-20-2018 [facility] saturation in 09:42-0500 ([id number]) Blood No panel information on 2018-03-19 Oxygen 98 % (no code) 94 - 100 % 03-19-2018 [facility] saturation in 09:45-0500 ([id number]) Blood no information Chart note added (no code) [facility] ([id number]) no information Chart note added (no code) [facility] ([id number]) No panel information on 2018-03-18 no information Chart note added (no code) [facility] ([id number]) no information Chart note added (no code) [facility] ([id number]) No panel information on 2018-03-17 no information Chart note added (no code) [facility] ([id number]) No panel information on 2018-03-16 Oxygen 98 % (no code) 94 - 100 % 03-16-2018 [facility] saturation in 10:00-0500 ([id number]) Blood No panel information on 2018-03-15 no information Chart note added (no code) [facility] ([id number]) no information Chart note added (no code) [facility] ([id number]) No panel information on 2018-03-14 Oxygen 98 % (no code) 94 - 100 % 03-14-2018 [facility] saturation in 09:11-0500 ([id number]) Blood No panel information on 2018-03-13 Oxygen 98 % (no code) 94 - 100 % 03-13-2018 [facility] saturation in 09:44-0500 ([id number]) Blood No panel information on 2018-03-12 Oxygen 98 % (no code) 94 - 100 % 03-12-2018 [facility] saturation in 08:23-0500 ([id number]) Blood Oxygen 98 % (no code) 94 - 100 % 03-12-2018 [facility] saturation in 12:48-0500 ([id number]) Blood no information Chart note added (no code) [facility] ([id number]) no information Chart note added (no code) [facility] ([id number]) No panel information on 2018-03-11 Oxygen 98 % (no code) 94 - 100 % 03-11-2018 [facility] saturation in 09:21-0500 ([id number]) Blood no information Chart note added (no code) [facility] ([id number]) No panel information on 2018-03-10 Oxygen 98 % (no code) 94 - 100 % 03-10-2018 [facility] saturation in 09:33-0500 ([id number]) Blood Oxygen 98 % (no code) 94 - 100 % 03-10-2018 [facility] saturation in 11:24-0500 ([id number]) Blood no information Chart note added (no code) [facility] ([id number]) no information Chart note added (no code) [facility] ([id number]) No panel information on 2018-03-09 Oxygen 99 % (no code) 94 - 100 % 03-09-2018 [facility] saturation in 14:19-0500 ([id number]) Blood no information Chart note added (no code) [facility] ([id number]) No panel information on 2018-03-08 Oxygen 97 % (no code) 94 - 100 % 03-08-2018 [facility] saturation in 09:01-0500 ([id number]) Blood Oxygen 97 % (no code) 94 - 100 % 03-08-2018 [facility] saturation in 13:45-0500 ([id number]) Blood no information Chart note added (no code) [facility] ([id number]) no information Chart note added (no code) [facility] ([id number]) No panel information on 2018-03-07 Oxygen 98 % (no code) 94 - 100 % 03-07-2018 [facility] saturation in 08:53-0500 ([id number]) Blood No panel information on 2018-03-06 Oxygen 99 % (no code) 94 - 100 % 03-06-2018 [facility] saturation in 09:51-0500 ([id number]) Blood Oxygen 99 % (no code) 94 - 100 % 03-06-2018 [facility] saturation in 13:02-0500 ([id number]) Blood No panel information on 2018-03-05 Oxygen 99 % (no code) 94 - 100 % 03-05-2018 [facility] saturation in 13:02-0500 ([id number]) Blood no information Chart note added (no code) [facility] ([id number]) no information Chart note added (no code) [facility] ([id number]) No panel information on 2018-03-04 Oxygen 98 % (no code) 94 - 100 % 03-04-2018 [facility] saturation in 08:32-0500 ([id number]) Blood no information Chart note added (no code) [facility] ([id number]) No panel information on 2018-03-03 Oxygen 98 % (no code) 94 - 100 % 03-03-2018 [facility] saturation in 08:55-0500 ([id number]) Blood Oxygen 98 % (no code) 94 - 100 % 03-03-2018 [facility] saturation in 12:29-0500 ([id number]) Blood no information Chart note added (no code) [facility] ([id number]) no information Chart note added (no code) [facility] ([id number]) No panel information on 2018-03-02 Oxygen 98 % (no code) 94 - 100 % 03-02-2018 [facility] saturation in 08:47-0500 ([id number]) Blood Oxygen 98 % (no code) 94 - 100 % 03-02-2018 [facility] saturation in 13:14-0500 ([id number]) Blood no information Chart note added (no code) [facility] ([id number]) no information Chart note added (no code) [facility] ([id number]) No panel information on 2018-03-01 Oxygen 98 % (no code) 94 - 100 % 03-01-2018 [facility] saturation in 11:24-0500 ([id number]) Blood no information Chart note added (no code) [facility] ([id number]) No panel information on 2018-02-27 Oxygen 95 % (no code) 94 - 100 % 02-27-2018 [facility] saturation in 09:13-0500 ([id number]) Blood Oxygen 98 % (no code) 94 - 100 % 02-27-2018 [facility] saturation in 11:39-0500 ([id number]) Blood No panel information on 2018-02-26 Oxygen 97 % (no code) 94 - 100 % 02-26-2018 [facility] saturation in 10:25-0500 ([id number]) Blood no information Chart note added (no code) [facility] ([id number]) no information Chart note added (no code) [facility] ([id number]) No panel information on 2018-02-25 Oxygen 99 % (no code) 94 - 100 % 02-25-2018 [facility] saturation in 09:50-0500 ([id number]) Blood Oxygen 99 % (no code) 94 - 100 % 02-25-2018 [facility] saturation in 12:50-0500 ([id number]) Blood no information Chart note added (no code) [facility] ([id number]) no information Chart note added (no code) [facility] ([id number]) No panel information on 2018-02-24 Oxygen 99 % (no code) 94 - 100 % 02-24-2018 [facility] saturation in 09:06-0500 ([id number]) Blood no information Chart note added (no code) [facility] ([id number]) No panel information on 2018-02-23 Oxygen 98 % (no code) 94 - 100 % 02-23-2018 [facility] saturation in 10:06-0500 ([id number]) Blood no information Chart note added (no code) [facility] ([id number]) no information Chart note added (no code) [facility] ([id number]) no information Chart note added (no code) [facility] ([id number]) No panel information on 2018-02-22 Oxygen 99 % (no code) 94 - 100 % 02-22-2018 [facility] saturation in 09:38-0500 ([id number]) Blood no information Chart note added (no code) [facility] ([id number]) No panel information on 2018-02-20 Oxygen 98 % (no code) 94 - 100 % 02-20-2018 [facility] saturation in 09:39-0500 ([id number]) Blood No panel information on 2018-02-19 Oxygen 99 % (no code) 94 - 100 % 02-19-2018 [facility] saturation in 09:50-0500 ([id number]) Blood no information Chart note added (no code) [facility] ([id number]) No panel information on 2018-02-18 no information Chart note added (no code) [facility] ([id number]) no information Chart note added (no code) [facility] ([id number]) No panel information on 2018-02-17 Oxygen 98 % (no code) 94 - 100 % 02-17-2018 [facility] saturation in 08:35-0500 ([id number]) Blood Oxygen 98 % (no code) 94 - 100 % 02-17-2018 [facility] saturation in 14:48-0500 ([id number]) Blood No panel information on 2018-02-16 Oxygen 99 % (no code) 94 - 100 % 02-16-2018 [facility] saturation in 09:50-0500 ([id number]) Blood Oxygen 99 % (no code) 94 - 100 % 02-16-2018 [facility] saturation in 14:52-0500 ([id number]) Blood no information Chart note added (no code) [facility] ([id number]) no information Chart note added (no code) [facility] ([id number]) No panel information on 2018-02-15 Oxygen 99 % (no code) 94 - 100 % 02-15-2018 [facility] saturation in 14:17-0500 ([id number]) Blood no information Chart note added (no code) [facility] ([id number]) no information Chart note added (no code) [facility] ([id number]) No panel information on 2018-02-14 Oxygen 98 % (no code) 94 - 100 % 02-14-2018 [facility] saturation in 08:55-0500 ([id number]) Blood No panel information on 2018-02-12 Oxygen 98 % (no code) 94 - 100 % 02-12-2018 [facility] saturation in 09:36-0500 ([id number]) Blood Oxygen 98 % (no code) 94 - 100 % 02-12-2018 [facility] saturation in 14:09-0500 ([id number]) Blood no information Chart note added (no code) [facility] ([id number]) No panel information on 2018-02-11 Oxygen 100 % (no code) 94 - 100 % 02-11-2018 [facility] saturation in 20:32-0500 ([id number]) Blood No panel information on 2018-02-10 Oxygen 98 % (no code) 94 - 100 % 02-10-2018 [facility] saturation in 09:29-0500 ([id number]) Blood Oxygen 99 % (no code) 94 - 100 % 02-10-2018 [facility] saturation in 14:35-0500 ([id number]) Blood no information Chart note added (no code) [facility] ([id number]) No panel information on 2018-02-09 Body weight 116 (no code) 02-09-2018 [facility] 14:42-0500 ([id number]) Oxygen 99 % (no code) 94 - 100 % 02-09-2018 [facility] saturation in 14:42-0500 ([id number]) Blood no information Chart note added (no code) [facility] ([id number]) No panel information on 2018-02-08 Body weight 117 (no code) 02-08-2018 [facility] 14:04-0500 ([id number]) Oxygen 100 % (no code) 94 - 100 % 02-08-2018 [facility] saturation in 08:15-0500 ([id number]) Blood Oxygen 99 % (no code) 94 - 100 % 02-08-2018 [facility] saturation in 14:04-0500 ([id number]) Blood no information Chart note added (no code) [facility] ([id number]) No panel information on 2018-02-07 Oxygen 99 % (no code) 94 - 100 % 02-07-2018 [facility] saturation in 08:36-0500 ([id number]) Blood No panel information on 2018-02-05 Body weight 116 (no code) 02-05-2018 [facility] 14:44-0500 ([id number]) Oxygen 99 % (no code) 94 - 100 % 02-05-2018 [facility] saturation in 10:07-0500 ([id number]) Blood no information Chart note added (no code) [facility] ([id number]) no information Chart note added (no code) [facility] ([id number]) No panel information on 2018-02-04 Oxygen 99 % (no code) 94 - 100 % 02-04-2018 [facility] saturation in 09:29-0500 ([id number]) Blood no information Chart note added (no code) [facility] ([id number]) No panel information on 2018-02-03 Body weight 115 (no code) 02-03-2018 [facility] 14:15-0500 ([id number]) Oxygen 98 % (no code) 94 - 100 % 02-03-2018 [facility] saturation in 09:48-0500 ([id number]) Blood Oxygen 98 % (no code) 94 - 100 % 02-03-2018 [facility] saturation in 14:15-0500 ([id number]) Blood no information Chart note added (no code) [facility] ([id number]) No panel information on 2018-02-02 Body weight 114.5 (L) 02-02-2018 [facility] 14:19-0500 ([id number]) Oxygen 99 % (no code) 94 - 100 % 02-02-2018 [facility] saturation in 09:46-0500 ([id number]) Blood Oxygen 99 % (no code) 94 - 100 % 02-02-2018 [facility] saturation in 14:19-0500 ([id number]) Blood no information Chart note added (no code) [facility] ([id number]) no information Chart note added (no code) [facility] ([id number]) No panel information on 2018-02-01 Body weight 118 (no code) 02-01-2018 [facility] 12:11-0500 ([id number]) Oxygen 96 % (no code) 94 - 100 % 02-01-2018 [facility] saturation in 12:11-0500 ([id number]) Blood no information Chart note added (no code) [facility] ([id number]) no information Chart note added (no code) [facility] ([id number]) No panel information on 2018-01-31 Oxygen 98 % (no code) 94 - 100 % 01-31-2018 [facility] saturation in 08:22-0500 ([id number]) Blood No panel information on 2018-01-30 Body weight 123 (no code) 01-30-2018 [facility] 11:41-0500 ([id number]) Oxygen 95 % (no code) 94 - 100 % 01-30-2018 [facility] saturation in 10:48-0500 ([id number]) Blood No panel information on 2018-01-29 Oxygen 98 % (no code) 94 - 100 % 01-29-2018 [facility] saturation in 10:24-0500 ([id number]) Blood no information Chart note added (no code) [facility] ([id number]) no information Chart note added (no code) [facility] ([id number]) No panel information on 2018-01-28 Oxygen 98 % (no code) 94 - 100 % 01-28-2018 [facility] saturation in 08:42-0500 ([id number]) Blood no information Chart note added (no code) [facility] ([id number]) no information Chart note added (no code) [facility] ([id number]) No panel information on 2018-01-27 Body weight 124 (no code) 01-27-2018 [facility] 16:30-0500 ([id number]) Oxygen 97 % (no code) 94 - 100 % 01-27-2018 [facility] saturation in 10:16-0500 ([id number]) Blood No panel information on 2018-01-26 Body weight 123 (no code) 01-26-2018 [facility] 14:15-0500 ([id number]) Oxygen 98 % (no code) 94 - 100 % 01-26-2018 [facility] saturation in 09:56-0500 ([id number]) Blood Oxygen 98 % (no code) 94 - 100 % 01-26-2018 [facility] saturation in 14:14-0500 ([id number]) Blood no information Chart note added (no code) [facility] ([id number]) no information Chart note added (no code) [facility] ([id number]) No panel information on 2018-01-25 Body weight 116 (no code) 01-25-2018 [facility] 08:30-0500 ([id number]) Body weight 121 (no code) 01-25-2018 [facility] 13:02-0500 ([id number]) Oxygen 99 % (no code) 94 - 100 % 01-25-2018 [facility] saturation in 08:59-0500 ([id number]) Blood Oxygen 99 % (no code) 94 - 100 % 01-25-2018 [facility] saturation in 13:01-0500 ([id number]) Blood no information Chart note added (no code) [facility] ([id number]) no information Chart note added (no code) [facility] ([id number]) No panel information on 2018-01-24 Oxygen 97 % (no code) 94 - 100 % 01-24-2018 [facility] saturation in 08:28-0500 ([id number]) Blood No panel information on 2018-01-23 Oxygen 97 % (no code) 94 - 100 % 01-23-2018 [facility] saturation in 09:34-0400 ([id number]) Blood No panel information on 2018-01-22 Body weight 124 (no code) 01-22-2018 [facility] 17:17-0400 ([id number]) Oxygen 98 % (no code) 94 - 100 % 01-22-2018 [facility] saturation in 10:11-0400 ([id number]) Blood no information Chart note added (no code) [facility] ([id number]) No panel information on 2018-01-21 Oxygen 97 % (no code) 94 - 100 % 01-21-2018 [facility] saturation in 11:06-0400 ([id number]) Blood no information Chart note added (no code) [facility] ([id number]) no information Chart note added (no code) [facility] ([id number]) No panel information on 2018-01-20 Oxygen 98 % (no code) 94 - 100 % 01-20-2018 [facility] saturation in 09:37-0400 ([id number]) Blood no information Chart note added (no code) [facility] ([id number]) no information Chart note added (no code) [facility] ([id number]) No panel information on 2018-01-19 Body weight 117.5 (no code) 01-19-2018 [facility] 14:28-0400 ([id number]) Oxygen 97 % (no code) 94 - 100 % 01-19-2018 [facility] saturation in 14:28-0400 ([id number]) Blood no information Chart note added (no code) [facility] ([id number]) No panel information on 2018-01-14 no information Chart note added (no code) [facility] ([id number]) no information Chart note added (no code) [facility] ([id number]) No panel information on 2018-01-13 Body weight 124.3 (no code) 01-13-2018 [facility] 15:50-0400 ([id number]) Oxygen 98 % (no code) 94 - 100 % 01-13-2018 [facility] saturation in 15:50-0400 ([id number]) Blood no information Chart note added (no code) [facility] ([id number]) no information Chart note added (no code) [facility] ([id number]) No panel information on 2018-01-12 Body weight 124 (no code) 01-12-2018 [facility] 14:08-0400 ([id number]) Oxygen 98 % (no code) 94 - 100 % 01-12-2018 [facility] saturation in 09:03-0400 ([id number]) Blood Oxygen 98 % (no code) 94 - 100 % 01-12-2018 [facility] saturation in 14:08-0400 ([id number]) Blood no information Chart note added (no code) [facility] ([id number]) No panel information on 2018-01-11 Oxygen 98 % (no code) 94 - 100 % 01-11-2018 [facility] saturation in 10:24-0400 ([id number]) Blood no information Chart note added (no code) [facility] ([id number]) No panel information on 2018-01-10 Oxygen 98 % (no code) 94 - 100 % 01-10-2018 [facility] saturation in 09:16-0400 ([id number]) Blood No panel information on 2018-01-09 Oxygen 97 % (no code) 94 - 100 % 01-09-2018 [facility] saturation in 09:43-0400 ([id number]) Blood No panel information on 2018-01-08 Body weight 121 (no code) 01-08-2018 [facility] 17:05-0400 ([id number]) Oxygen 98 % (no code) 94 - 100 % 01-08-2018 [facility] saturation in 09:25-0400 ([id number]) Blood Oxygen 98 % (no code) 94 - 100 % 01-08-2018 [facility] saturation in 17:05-0400 ([id number]) Blood no information Chart note added (no code) [facility] ([id number]) No panel information on 2018-01-06 Body weight 116.4 (no code) 01-06-2018 [facility] 09:38-0400 ([id number]) Body weight 124 (no code) 01-06-2018 [facility] 13:30-0400 ([id number]) Oxygen 97 % (no code) 94 - 100 % 01-06-2018 [facility] saturation in 09:04-0400 ([id number]) Blood Oxygen 97 % (no code) 94 - 100 % 01-06-2018 [facility] saturation in 13:30-0400 ([id number]) Blood no information Chart note added (no code) [facility] ([id number]) no information Chart note added (no code) [facility] ([id number]) No panel information on 2018-01-05 Oxygen 97 % (no code) 94 - 100 % 01-05-2018 [facility] saturation in 09:50-0400 ([id number]) Blood no information Chart note added (no code) [facility] ([id number]) No panel information on 2018-01-04 Oxygen 98 % (no code) 94 - 100 % 01-04-2018 [facility] saturation in 10:16-0400 ([id number]) Blood no information Chart note added (no code) [facility] ([id number]) No panel information on 2017-12-29 Body weight 123 (no code) 12-29-2017 [facility] 12:0 (12798) Oxygen 98 % (no code) 94 - 100 % 12-29-2017 [facility] saturation in 12: (40615) Blood no information Chart note added (no code) [facility] ([id number]) No panel information on 2017-12-28 no information Chart note added (no code) [facility] ([id number]) No panel information on 2017-11-12 Bacteria LM.HPF Trace (A) 11-12-2017 Hospital #/area (Urine 13: [facility] ([id number]) Bilirubin Ql (U) no information (no code) 11-12-2017 Hospit al 13: [facility] ([id number]) Clarity Nom (U) Clear (no code) 11-12-2017 Hospital 13: [facility] ([id number]) Color Nom (U) Yellow (no code) 11-12-2017 Hospital 13: [facility] ([id number]) Epithelial 0-5/HPF (A) 11-12-2017 Hospital cells.squamous 13: [facility] LM.HPF #/area [facility] (Urine sed) ([id number]) Glucose. no information (no code) 11-12-2017 Hospital 13: [facility] ([id number]) Hemoglobin Test no information (no code) 11-12-2017 Hospita l strip Ql (U) 13: [facility] ([id number]) Icto N/A (A) 11-12-2017 Hospital 13: [facility] ([id number]) Ketones mass no information (no code) 11-12-2017 Hospital conc (U) 13: [facility] ([id number]) Leukocyte no information (no code) 11-12-2017 Hospital esterase Test 13: [facility] strip Ql (U) [facility] ([id number]) Nitrite Test no information (A) 11-12-2017 Hospital strip Ql (U) 13:23-0400 [facility] ([id number]) pH Test strip 7.0 [pH] (no code) 4.6 - 8 [pH] 11-12-2017 Hospi lalo (U) 13:23-0400 [facility] ([id number]) Protein mass no information (no code) 0 - 20 mg/dL 11-12-2017 H ospital conc (U) 13:230400 [facility] ([id number]) RBC LM.HPF no information (no code) 0 - 4 /[HPF] 11-12-2017 Hos pital #/area (Urine 13:23-0400 [facility] ([id number]) Specific gravity 1.015 (no code) 11-12-2017 Hospital Relative Density 13:230400 [facility] (U) [facility] ([id number]) Urine Volume Urine Volume (no code) 11-12-2017 Hospital Sufficient 13:230400 [facility] (10mL) [facility] ([id number]) Urobilinogen 0.2 (A) 0.2 - 1 11-12-2017 Hospital Test strip Qn {Karla'U}/dL {Karla'U}/dL 13:0400 [facility] (U) [facility] ([id number]) WBC LM.HPF 0-2/HPF (A) 11-12-2017 Hospital #/area (Urine 13:23-0400 [facility] ([id number]) No panel information on 2017-02-02 Surgical Sent to [place] (no code) 02-02-2017 Not Availa ble pathology study Pathology 11: (73363) No panel information on 2017-01-26 Albumin mass 4.0 g/dL (no code) 3.4 - 5.4 g/dL 01-26-2017 Not Available conc 14: (13742) ALP enzyme 57 U/L (no code) 44 - 147 U/L 01-26-2017 Not Avai lable act/vol 14: (05079) ALT enzyme 9 U/L (no code) 4 - 40 U/L 01-26-2017 Not Availa ble act/vol 14: (48463) Anion gap 3 15 mmol/L (H) 3 - mmol/L 01-26-2017 Not Av ailable molar conc 14: (28722) AST enzyme 17 U/L (no code) 10 - 34 U/L 01-26-2017 Not Avail able act/vol 14: (39541) Basophils (Bld) 0.0 10*3/uL (no code) 0 - 0.3 10*3/uL 01-26-2017 Not Available [#/Vol] 15: (00176) Basophils/100 0.20 % (no code) 0.5 - 1 % 01-26-2017 Not Avai lable WBC (Bld) 15: (55347) Bilirubin Ql (U) 0.3 (no code) 01-26-2017 Not Avail able 14: (71934) Calcium mass 9.8 mg/dL (no code) 8.5 - 10.2 mg/dL 01-26-2017 No t Available conc 14: (09194) Chloride molar 105 mmol/L (no code) 95 - 106 mmol/L 01-26-2017 Not Available conc 14: (08214) CO2 molar conc 22 mmol/L (no code) 23 - 29 mmol/L 01-26-2017 No t Available 14: (40286) Creatinine mass 0.90 mg/dL (no code) 01-26-2017 Not Availa ble conc 14: (82963) EKG Complete (no code) 01-26-2017 no information 14: Eosinophils 0.3 10*3/uL (no code) 0.05 - 0.5 01-26-2017 Not Preethi ilable (Bld) [#/Vol] 10*3/uL 15: (51540) Eosinophils/100 2.3 % (no code) 1 - 4 % 01-26-2017 Not Av ailable WBC (Bld) 15: (56233) Erythrocyte 11.4 % (L) 11.6 - 14.6 % 01-26-2017 Not Av ailable distribution 15: (04356) width (RBC) [Ratio] GFR/1.73 sq M 60 (no code) 90 - 120 01-26-2017 Not Avai lable predicted among mL/min/{1.73_m2} mL/min/{1.73_m2} 14: () non-blacks MDRD vol rate/area (S/P/Bld) Globulin 2.4 g/dL (no code) 2 - 3.5 g/dL 01-26-2017 Not Avail able Calculated mass 14: () conc (S) Glucose mass 105 mg/dL (no code) 60 - 125 mg/dL 01-26-2017 Not Available conc 14: () Hematocrit (Bld) 32.0 % (L) 36.1 - 50.3 % 01-26-2017 N ot Available [Volume 15: () fraction] Hemoglobin (Bld) 10.5 g/dL (L) 12.1 - 17.2 g/dL 01-26-2017 Not Available [Mass/Vol] 15: () Lymphocytes 2.47 10*3/uL (no code) 0.9 - 2.9 01-26-2017 Not Preethi ilable (Bld) [#/Vol] 10*3/uL 15: (81377) Lymphocytes/100 20.4 % (no code) 20 - 40 % 01-26-2017 Not Av ailable WBC (Bld) 15: (71025) MCH (RBC) 33.9 pg (H) 27 - 31 pg 01-26-2017 Not Availab le [Entitic mass] 15: (34069) MCHC (RBC) 32.8 g/dL (no code) 32 - 36 g/dL 01-26-2017 Not Avai lable [Mass/Vol] 15: (89764) MCV (RBC) 103.2 fL (H) 80 - 100 fL 01-26-2017 Not Availa ble [Entitic vol] 15: (68612) Monocytes (Bld) 0.9 10*3/uL (no code) 0.3 - 0.9 01-26-2017 Not Available [#/Vol] 10*3/uL 15: (13222) Monocytes/100 7.7 % (no code) 2 - 8 % 01-26-2017 Not Avai lable WBC (Bld) 15: () Neutrophils 8.39 10*3/uL (H) 1.7 - 7 10*3/uL 01-26-2017 N ot Available (Bld) [#/Vol] 15: () Neutrophils/100 69.4 % (no code) 40 - 60 % 01-26-2017 Not Av ailable WBC (Bld) 15: (17014) Osmolality 285 mosm/kg (no code) 275 - 295 01-26-2017 Not Avail able mosm/kg 14: () Platelet mean 11.2 fL (H) 7.2 - 11.7 fL 01-26-2017 Not Available volume (Bld) 15: () [Entitic vol] Platelets (Bld) 251 10*3/uL (no code) 150 - 450 01-26-2017 Not Available [#/Vol] 10*3/uL 15: () Potassium molar 5.1 mmol/L (no code) 3.7 - 5.2 mmol/L 01-26-2017 Not Available conc 14: (28933) Protein mass 6.4 g/dL (no code) 6.4 - 8.3 g/dL 01-26-2017 Not Available conc 14: (48284) RBC (Bld) 3.10 10*6/uL (L) 4.2 - 6.1 01-26-2017 Not Avail able [#/Vol] 10*6/uL 15: (56984) Sodium molar 137 mmol/L (no code) 135 - 145 mmol/L 01-26-2017 N ot Available conc 14: (11179) Urea nitrogen 16 mg/dL (no code) 7 - 20 mg/dL 01-26-2017 Not A vailable mass conc 14: (24579) WBC (Bld) 12.09 10*3/uL (H) 3.5 - 10.5 01-26-2017 Not Preethi ilable [#/Vol] 10*3/uL 15:11-0500 (24988) No panel information on 2016-12-01 Cholesterol 181 mg/dL (no code) 180 - 200 mg/dL 12-01-2016 Not Available [Mass/Vol] : (33405) Cholesterol in 59 mg/dL (no code) 12-01-2016 Not Availab le HDL [Mass/Vol] 09: (74977) Cholesterol in 108 mg/dL (H) 0 - 100 mg/dL 12-01-2016 Not Available LDL [Mass/Vol] 09: (22122) Cholesterol in 14 mg/dL (no code) 12-01-2016 Not Availab le VLDL [Mass/Vol] 09: (45190) Cholesterol.tota 3.1 {ratio} (L) 12-01-2016 Not Avail able l/Cholesterol in : (25862) HDL [Mass ratio] Triglyceride 68 mg/dL (no code) 0 - 150 mg/dL 12-01-2016 Not A vailable [Mass/Vol] : (76418) No panel information on 2016-10-10 Albumin BCG dye 3.9 (no code) 10-10-2016 Not Availa ble [Mass/Vol] 15: (40674) ALP [Catalytic 54 U/L (no code) 44 - 147 U/L 10-10-2016 Not Available activity/Vol] 15: (23170) ALT [Catalytic 8 U/L (no code) 4 - 40 U/L 10-10-2016 Not Av ailable activity/Vol] 15: (55979) Anion gap 17 mmol/L (H) 3 - 11 mmol/L 10-10-2016 Not Avai lable [Moles/Vol] 15: (47655) AST [Catalytic 19 U/L (no code) 10 - 34 U/L 10-10-2016 Not A vailable activity/Vol] 15: (32731) Basophils (Bld) 0.0 10*3/uL (no code) 0 - 0.3 10*3/uL 10-10-2016 Not Available [#/Vol] 15: (52327) Basophils/100 0.30 % (no code) 0.5 - 1 % 10-10-2016 Not Avai lable WBC (Bld) 15: (67335) Bilirubin 0.4 mg/dL (no code) 0.1 - 1.2 mg/dL 10-10-2016 Not Av ailable [Mass/Vol] 15: (72372) Calcium 9.7 mg/dL (no code) 8.5 - 10.2 mg/dL 10-10-2016 Not A vailable [Mass/Vol] 15: (14338) Chloride 103 mmol/L (no code) 95 - 106 mmol/L 10-10-2016 Not A vailable [Moles/Vol] 15: (14470) Creatinine 0.80 mg/dL (no code) 10-10-2016 Not Available [Mass/Vol] 15: (95558) CULTURE SOURCE void (no code) 10-10-2016 Not Availab le 15: (36640) Eosinophils 0.2 10*3/uL (no code) 0.05 - 0.5 10-10-2016 Not Preethi ilable (Bld) [#/Vol] 10*3/uL 15: (38421) Eosinophils/100 1.5 % (no code) 1 - 4 % 10-10-2016 Not Av ailable WBC (Bld) 15: (12359) Erythrocyte 11.0 % (L) 11.6 - 14.6 % 10-10-2016 Not Av ailable distribution 15: (45561) width (RBC) [Ratio] FINAL CULTURE <10,000 Gram (no code) 10-10-2016 Not Availab le RESULTS Positive Mixed 15: (53932) Bridget Probable Skin Contaminant No Further Workup done GFR/1.73 sq 69 (no code) 90 - 120 10-10-2016 Not Availa ble M.predicted MDRD mL/min/{1.73_m2} mL/min/{1.73_m2} 15: (42569) (S/P/Bld) [Vol rate/Area] Globulin (S) 2.6 g/dL (no code) 2 - 3.5 g/dL 10-10-2016 Not Av ailable [Mass/Vol] 15: (88023) Glucose 100 mg/dL (no code) 60 - 125 mg/dL 10-10-2016 Not Preethi ilable [Mass/Vol] 15: (95310) HCO3 (P) 21 (L) 10-10-2016 Not Available [Moles/Vol] 15: (28774) Hematocrit (Bld) 34.5 % (L) 36.1 - 50.3 % 10-10-2016 N ot Available [Volume 15: (98708) fraction] Hemoglobin (Bld) 11.3 g/dL (L) 12.1 - 17.2 g/dL 10-10-2016 Not Available [Mass/Vol] 15: (12307) Lymphocytes 2.17 10*3/uL (no code) 0.9 - 2.9 10-10-2016 Not Preethi ilable (Bld) [#/Vol] 10*3/uL 15: (49600) Lymphocytes/100 20.1 % (no code) 20 - 40 % 10-10-2016 Not Av ailable WBC (Bld) 15: (98174) MCH (RBC) 32.9 pg (H) 27 - 31 pg 10-10-2016 Not Availab le [Entitic mass] 15:0400 (48564) MCHC (RBC) 32.8 g/dL (no code) 32 - 36 g/dL 10-10-2016 Not Avai lable [Mass/Vol] 15: (68668) MCV (RBC) 100.6 fL (H) 80 - 100 fL 10-10-2016 Not Availa ble [Entitic vol] 15: (54898) MEDIA PLATED Setup at 14:46 (no code) 10-10-2016 Not Availa ble on 10/10/2016 15:0 (56736) Monocytes (Bld) 0.9 10*3/uL (no code) 0.3 - 0.9 10-10-2016 Not Available [#/Vol] 10*3/uL 15:0 (83151) Monocytes/100 8.1 % (no code) 2 - 8 % 10-10-2016 Not Avai lable WBC (Bld) 15: (74608) Neutrophils 7.54 10*3/uL (H) 1.7 - 7 10*3/uL 10-10-2016 N ot Available (Bld) [#/Vol] 15: (41231) Neutrophils/100 70.0 % (no code) 40 - 60 % 10-10-2016 Not Av ailable WBC (Bld) 15: (32059) Osmolality Calc 281 (no code) 10-10-2016 Not Availa ble [Osmolality] 15: (92746) Platelet mean 11.1 fL (H) 7.2 - 11.7 fL 10-10-2016 Not Available volume (Bld) 15: (04851) [Entitic vol] Platelets (Bld) 297 10*3/uL (no code) 150 - 450 10-10-2016 Not Available [#/Vol] 10*3/uL 15: (53395) Potassium 4.8 mmol/L (no code) 3.7 - 5.2 mmol/L 10-10-2016 Not Available [Moles/Vol] 15: (53188) PRELIM CULTURE no information (no code) 10-10-2016 Not Avai lable RESULTS 15: (25854) Protein 6.5 g/dL (no code) 6.4 - 8.3 g/dL 10-10-2016 Not Preethi ilable [Mass/Vol] 15: (57851) RBC (Bld) 3.43 10*6/uL (L) 4.2 - 6.1 10-10-2016 Not Avail able [#/Vol] 10*6/uL 15: (55954) Sodium 136 mmol/L (no code) 135 - 145 mmol/L 10-10-2016 Not Available [Moles/Vol] 15: (84639) TSH Qn 2.19 (no code) 10-10-2016 Not Available 15: (23560) Urea nitrogen 12 mg/dL (no code) 7 - 20 mg/dL 10-10-2016 Not A vailable [Mass/Vol] 15: (75887) WBC (Bld) 10.77 10*3/uL (H) 3.5 - 10.5 10-10-2016 Not Preethi ilable [#/Vol] 10*3/uL 15:0 (75912) No panel information on 2016-04-15 Anion gap 15 mmol/L (H) 3 - 11 mmol/L 04-15-2016 Not Avai lable [Moles/Vol] 10:0500 (63688) Basophils (Bld) 0.0 10*3/uL (no code) 0 - 0.3 10*3/uL 04-15-2016 Not Available [#/Vol] 10:0500 (91024) Basophils/100 0.30 % (no code) 0.5 - 1 % 04-15-2016 Not Avai lable WBC (Bld) 10:0 (93741) Calcium 9.3 mg/dL (no code) 8.5 - 10.2 mg/dL 04-15-2016 Not A vailable [Mass/Vol] 10:0 (98675) Chloride 106 mmol/L (no code) 95 - 106 mmol/L 04-15-2016 Not A vailable [Moles/Vol] 10:0 (54017) Creatinine 0.92 mg/dL (no code) 04-15-2016 Not Available [Mass/Vol] 10:0 (31682) Eosinophils 0.2 10*3/uL (no code) 0.05 - 0.5 04-15-2016 Not Preethi ilable (Bld) [#/Vol] 10*3/uL 10:0500 (74860) Eosinophils/100 2.3 % (no code) 1 - 4 % 04-15-2016 Not Av ailable WBC (Bld) 10:0 (25668) Erythrocyte 12.7 % (no code) 11.6 - 14.6 % 04-15-2016 Not Av ailable distribution 10:0 (53944) width (RBC) [Ratio] GFR/1.73 sq 59 (L) 90 - 120 04-15-2016 Not Availa ble M.predicted MDRD mL/min/{1.73_m2} mL/min/{1.73_m2} 10:0500 (53896) (S/P/Bld) [Vol rate/Area] Glucose 70 mg/dL (no code) 60 - 125 mg/dL 04-15-2016 Not Preethi ilable [Mass/Vol] 10:150500 (42307) HCO3 (P) 20 (L) 04-15-2016 Not Available [Moles/Vol] 10: (40196) Hematocrit (Bld) 29.9 % (L) 36.1 - 50.3 % 04-15-2016 N ot Available [Volume 10: (62078) fraction] Hemoglobin (Bld) 9.7 g/dL (L) 12.1 - 17.2 g/dL 04-15-2016 Not Available [Mass/Vol] 10:0500 (04056) Holter monitor 24 Hour Complete (no code) 04-15-2016 Not Av ailable study 10: (86294) Lymphocytes 1.90 10*3/uL (no code) 0.9 - 2.9 04-15-2016 Not Preethi ilable (Bld) [#/Vol] 10*3/uL 10:150500 (46318) Lymphocytes/100 19.2 % (no code) 20 - 40 % 04-15-2016 Not Av ailable WBC (Bld) 10:150500 (30826) MCH (RBC) 33.7 pg (H) 27 - 31 pg 04-15-2016 Not Availab le [Entitic mass] 10:150500 (33878) MCHC (RBC) 32.4 g/dL (no code) 32 - 36 g/dL 04-15-2016 Not Avai lable [Mass/Vol] 10:150500 (79787) MCV (RBC) 103.8 fL (H) 80 - 100 fL 04-15-2016 Not Availa ble [Entitic vol] 10:150500 (27741) Monocytes (Bld) 0.9 10*3/uL (no code) 0.3 - 0.9 04-15-2016 Not Available [#/Vol] 10*3/uL 10:150500 (82651) Monocytes/100 9.0 % (no code) 2 - 8 % 04-15-2016 Not Avai lable WBC (Bld) 10:150500 (15885) Neutrophils 6.84 10*3/uL (no code) 1.7 - 7 10*3/uL 04-15-2016 N ot Available (Bld) [#/Vol] 10:150500 (82391) Neutrophils/100 69.2 % (no code) 40 - 60 % 04-15-2016 Not Av ailable WBC (Bld) 10:0500 (82978) Osmolality Calc 283 (no code) 04-15-2016 Not Availa ble [Osmolality] 10:150500 (13026) Platelet mean 11.1 fL (H) 7.2 - 11.7 fL 04-15-2016 Not Available volume (Bld) 10:0500 (83314) [Entitic vol] Platelets (Bld) 271 10*3/uL (no code) 150 - 450 04-15-2016 Not Available [#/Vol] 10*3/uL 10:0500 (37928) Potassium 4.6 mmol/L (no code) 3.7 - 5.2 mmol/L 04-15-2016 Not Available [Moles/Vol] 10:150500 (77422) RBC (Bld) 2.88 10*6/uL (L) 4.2 - 6.1 04-15-2016 Not Avail able [#/Vol] 10*6/uL 10:150500 (90516) Sodium 136 mmol/L (no code) 135 - 145 mmol/L 04-15-2016 Not Available [Moles/Vol] 10:150500 (88357) Urea nitrogen 21 mg/dL (no code) 7 - 20 mg/dL 04-15-2016 Not A vailable [Mass/Vol] 10:150500 (75890) WBC (Bld) 9.89 10*3/uL (no code) 3.5 - 10.5 04-15-2016 Not Avai lable [#/Vol] 10*3/uL 10:150500 (10289) Vital Signs Vital Sign Value Interpretation Reference Date Time Care Prov ider Facility (Normalized) (Normalized) Range Body weight 48.3084 kg (no code) kg 06-27-2019 no name [facility] 10:12-0400 (24268) Body weight 48.0816 kg (no code) kg 06-24-2019 no name [facility] 11:42-0400 (06000) Body weight 48.762 kg (no code) kg 06-22-2019 [facility] name [facility] 07:25-0400 (31151) Body weight 48.762 kg (no code) kg 06-21-2019 no name [facility] 09:32-0400 ([id number]) Body weight 48.762 kg (no code) kg 06-20-2019 no name [facility] 09:19-0400 ([id number]) Body weight 48.0816 kg (no code) kg 06-18-2019 no name [facility] 09:29-0400 ([id number]) Body weight 48.5352 kg (no code) kg 06-17-2019 no name [facility] 07:00-0400 ([id number]) Body weight 48.5352 kg (no code) kg 06-15-2019 no name [facility] 06:31-0400 ([id number]) Body weight 48.3084 kg (no code) kg 06-14-2019 no name [facility] 10:48-0400 ([id number]) Body weight 48.3084 kg (no code) kg 06-13-2019 no name [facility] 09:53-0400 ([id number]) Body weight 48.9888 kg (no code) kg 06-10-2019 no name [facility] 13:20-0400 ([id number]) Body weight 48.5352 kg (no code) kg 06-08-2019 no name [facility] 08:09-0400 ([id number]) Body weight 49.4424 kg (no code) kg 06-07-2019 no name [facility] 10:34-0400 ([id number]) Body weight 49.896 kg (no code) kg 06-06-2019 no name [facility] 10:35-0400 ([id number]) Body weight 48.9888 kg (no code) kg 06-03-2019 no name [facility] 06:53-0400 ([id number]) Body weight 48.5352 kg (no code) kg 06-01-2019 no name [facility] 06:27-0400 ([id number]) Body weight 49.2156 kg (no code) kg 05-31-2019 no name [facility] 09:07-0400 ([id number]) Body weight 48.9888 kg (no code) kg 05-30-2019 no name [facility] 09:14-0400 ([id number]) Body weight 48.0816 kg (no code) kg 05-28-2019 no name [facility] 04:31-0500 ([id number]) Body weight 49.2156 kg (no code) kg 05-26-2019 no name [facility] 05:58-0500 ([id number]) Body weight 48.9888 kg (no code) kg 05-25-2019 no name [facility] 05:01-0500 ([id number]) Body weight 48.0816 kg (no code) kg 05-24-2019 no name [facility] 04:29-0500 ([id number]) Body weight 48.9888 kg (no code) kg 05-23-2019 no name [facility] 04:44-0500 ([id number]) Body weight 47.628 kg (no code) kg 05-21-2019 no name [facility] 07:57-0500 ([id number]) Body weight 48.0816 kg (no code) kg 05-20-2019 no name [facility] 06:00-0500 ([id number]) Body weight 48.5352 kg (no code) kg 05-19-2019 no name [facility] 04:36-0500 ([id number]) Body weight 48.0816 kg (no code) kg 05-18-2019 no name [facility] 05:14-0500 ([id number]) Body weight 47.8548 kg (no code) kg 05-16-2019 no name [facility] 09:08-0500 ([id number]) Body weight 47.628 kg (H) kg 05-14-2019 no name [facility] 05:05-0500 ([id number]) Body weight 46.494 kg (no code) kg 05-13-2019 no name [facility] 12:32-0500 ([id number]) Body weight 47.4012 kg (no code) kg 05-11-2019 no name [facility] 10:51-0500 ([id number]) Body weight 47.4012 kg (no code) kg 05-10-2019 no name [facility] 07:36-0500 ([id number]) Body weight 47.8548 kg (no code) kg 05-09-2019 no name [facility] 08:25-0500 ([id number]) Body weight 46.7208 kg (L) kg 05-07-2019 no name [facility] 08:43-0500 ([id number]) Body weight 48.0816 kg (no code) kg 05-06-2019 no name [facility] 05:36-0500 ([id number]) Body weight 47.628 kg (no code) kg 05-04-2019 no name [facility] 11:45-0500 ([id number]) Body weight 47.628 kg (no code) kg 05-04-2019 no name [facility] 03:48-0500 ([id number]) Body weight 47.628 kg (no code) kg 05-03-2019 no name [facility] 08:33-0500 ([id number]) Body weight 47.1744 kg (no code) kg 05-02-2019 no name [facility] 10:49-0500 ([id number]) Body weight 47.1744 kg (no code) kg 04-29-2019 no name [facility] 03:37-0500 ([id number]) Body weight 47.628 kg (no code) kg 04-27-2019 no name [facility] 08:15-0500 ([id number]) Body weight 47.8548 kg (no code) kg 04-26-2019 no name [facility] 07:12-0500 ([id number]) Body weight 47.1744 kg (no code) kg 04-25-2019 no name [facility] 08:37-0500 ([id number]) Body weight 46.9476 kg (no code) kg 04-22-2019 no name [facility] 05:06-0500 ([id number]) Body weight 46.9476 kg (no code) kg 04-21-2019 no name [facility] 05:20-0500 ([id number]) Body weight 47.8548 kg (no code) kg 04-20-2019 no name [facility] 05:18-0500 ([id number]) Body weight 47.4012 kg (no code) kg 04-19-2019 no name [facility] 09:15-0500 ([id number]) Body weight 47.8548 kg (no code) kg 04-18-2019 no name [facility] 06:29-0500 ([id number]) Body weight 47.8548 kg (no code) kg 04-15-2019 no name [facility] 04:22-0500 ([id number]) Body weight 47.4012 kg (no code) kg 04-14-2019 no name [facility] 08:57-0500 ([id number]) Body weight 47.628 kg (no code) kg 04-13-2019 no name [facility] 07:42-0500 ([id number]) Body weight 48.0816 kg (no code) kg 04-12-2019 no name [facility] 09:02-0500 ([id number]) Body weight 47.628 kg (no code) kg 04-11-2019 no name [facility] 08:52-0500 ([id number]) Body weight 47.628 kg (no code) kg 04-09-2019 no name [facility] 07:50-0500 ([id number]) Body weight 48.0816 kg (no code) kg 04-08-2019 no name [facility] 06:55-0500 ([id number]) Body weight 48.3084 kg (no code) kg 04-06-2019 no name [facility] 04:17-0500 ([id number]) Body weight 48.3084 kg (no code) kg 04-05-2019 no name [facility] 07:45-0500 ([id number]) Body weight 48.5352 kg (no code) kg 04-04-2019 no name [facility] 06:42-0500 ([id number]) Body weight 48.0816 kg (no code) kg 04-01-2019 no name [facility] 05:22-0500 ([id number]) Body weight 48.9888 kg (no code) kg 03-30-2019 no name [facility] 05:11-0500 ([id number]) Body weight 49.4424 kg (H) kg 03-29-2019 no name [facility] 07:00-0500 ([id number]) Body weight 48.0816 kg (no code) kg 03-28-2019 no name [facility] 06:43-0500 ([id number]) Body weight 47.1744 kg (no code) kg 03-26-2019 no name [facility] 11:03-0500 ([id number]) Body weight 46.494 kg (no code) kg 03-25-2019 no name [facility] 04:31-0500 ([id number]) Body weight 48.9888 kg (HH) kg 03-22-2019 no name [facility] 07:35-0500 ([id number]) Body weight 47.1744 kg (no code) kg 03-21-2019 no name [facility] 09:56-0500 ([id number]) Body weight 47.1744 kg (no code) kg 03-18-2019 no name [facility] 04:56-0500 ([id number]) Body weight 47.4012 kg (no code) kg 03-14-2019 no name [facility] 09:11-0500 ([id number]) Body weight 47.8548 kg (no code) kg 03-12-2019 no name [facility] 08:01-0500 ([id number]) Body weight 48.3084 kg (no code) kg 03-11-2019 no name [facility] 06:15-0500 ([id number]) Body weight 48.3084 kg (no code) kg 03-10-2019 no name [facility] 06:05-0500 ([id number]) Body weight 48.762 kg (no code) kg 03-09-2019 no name [facility] 04:59-0500 ([id number]) Body weight 49.4424 kg (no code) kg 03-08-2019 no name [facility] 08:09-0500 ([id number]) Body weight 48.762 kg (no code) kg 03-07-2019 no name [facility] 07:17-0500 ([id number]) Body weight 48.3084 kg (no code) kg 03-05-2019 no name [facility] 12:08-0500 ([id number]) Body weight 48.0816 kg (no code) kg 03-04-2019 no name [facility] 05:33-0500 ([id number]) Body weight 49.2156 kg (no code) kg 03-01-2019 no name [facility] 09:39-0500 ([id number]) Body weight 49.4424 kg (no code) kg 02-28-2019 no name [facility] 08:01-0500 ([id number]) Body weight 49.6692 kg (no code) kg 02-23-2019 no name [facility] 06:26-0500 ([id number]) Body weight 49.6692 kg (no code) kg 02-22-2019 no name [facility] 08:17-0500 ([id number]) Body weight 49.6692 kg (no code) kg 02-21-2019 no name [facility] 09:55-0500 ([id number]) Body weight 48.762 kg (no code) kg 02-18-2019 no name [facility] 06:33-0500 ([id number]) Body weight 48.762 kg (no code) kg 02-16-2019 no name [facility] 05:00-0500 ([id number]) Body weight 48.5352 kg (no code) kg 02-15-2019 no name [facility] 04:22-0500 ([id number]) Body weight 48.762 kg (no code) kg 02-14-2019 no name [facility] 04:57-0500 ([id number]) Body weight 48.9888 kg (no code) kg 02-11-2019 no name [facility] 05:31-0500 ([id number]) Body weight 49.2156 kg (no code) kg 02-10-2019 no name [facility] 11:05-0500 ([id number]) Body weight 49.2156 kg (no code) kg 02-09-2019 no name [facility] 05:36-0500 ([id number]) Body weight 49.2156 kg (no code) kg 02-08-2019 no name [facility] 07:01-0500 ([id number]) Body weight 49.2156 kg (no code) kg 02-07-2019 no name [facility] 06:47-0500 ([id number]) Body weight 49.4424 kg (no code) kg 02-04-2019 no name [facility] 05:20-0500 ([id number]) Body weight 48.0816 kg (no code) kg 02-02-2019 no name [facility] 07:09-0500 ([id number]) Body weight 48.5352 kg (no code) kg 02-01-2019 no name [facility] 07:03-0500 ([id number]) Body weight 48.9888 kg (no code) kg 01-31-2019 no name [facility] 08:11-0500 ([id number]) Body weight 48.0816 kg (no code) kg 01-26-2019 no name [facility] 05:06-0500 ([id number]) Body weight 48.0816 kg (no code) kg 01-25-2019 no name [facility] 07:40-0500 ([id number]) Body weight 48.5352 kg (no code) kg 01-24-2019 no name [facility] 08:29-0500 ([id number]) Body weight 48.762 kg (no code) kg 01-21-2019 no name [facility] 06:21-0400 ([id number]) Body weight 48.5352 kg (no code) kg 01-19-2019 no name [facility] 06:20-0400 ([id number]) Body weight 48.9888 kg (no code) kg 01-18-2019 no name [facility] 08:52-0400 ([id number]) Body weight 48.9888 kg (no code) kg 01-17-2019 no name [facility] 12:11-0400 ([id number]) Body weight 48.3084 kg (L) kg 01-15-2019 no name [facility] 14:23-0400 ([id number]) Body weight 49.4424 kg (no code) kg 01-14-2019 no name [facility] 10:230400 ([id number]) Body weight 48.5352 kg (no code) kg 01-13-2019 no name [facility] 11:120400 ([id number]) Body weight 48.5352 kg (no code) kg 01-12-2019 no name [facility] 10:06-0400 ([id number]) Body weight 48.3084 kg (no code) kg 01-11-2019 no name [facility] 11:270400 ([id number]) Body weight 48.3084 kg (no code) kg 01-10-2019 no name [facility] 16:100400 ([id number]) Body weight 48.0816 kg (no code) kg 01-07-2019 no name [facility] 10:400400 ([id number]) Body weight 48.9888 kg (no code) kg 01-06-2019 no name [facility] 12:590400 ([id number]) Body weight 48.9888 kg (no code) kg 01-05-2019 no name [facility] 11:120400 ([id number]) Body weight 49.2156 kg (no code) kg 01-04-2019 no name [facility] 12:570400 ([id number]) Body weight 48.762 kg (no code) kg 01-03-2019 no name [facility] 11:370400 ([id number]) Body weight 48.5352 kg (L) kg 01-01-2019 no name [facility] 14:350400 ([id number]) Body weight 49.6692 kg (no code) kg 12-31-2018 no name [facility] 11:220400 ([id number]) Body weight 49.6692 kg (no code) kg 12-30-2018 no name [facility] 10:320400 ([id number]) Body weight 49.4424 kg (no code) kg 12-29-2018 no name [facility] 10:12-0400 ([id number]) Body weight 49.4424 kg (no code) kg 12-28-2018 no name [facility] 16:01-0400 ([id number]) Body weight 49.6692 kg (no code) kg 12-27-2018 no name [facility] 13:33-0400 ([id number]) Body weight 49.4424 kg (no code) kg 12-25-2018 no name [facility] 13:10-0400 ([id number]) Body weight 48.9888 kg (L) kg 12-24-2018 no name [facility] 11:31-0400 ([id number]) Body weight 50.1228 kg (no code) kg 12-23-2018 no name [facility] 11:020400 ([id number]) Body weight 49.6692 kg (no code) kg 12-22-2018 no name [facility] 10:54-0400 ([id number]) Body weight 49.2156 kg (no code) kg 12-21-2018 no name [facility] 14:16-0400 ([id number]) Body weight 49.2156 kg (no code) kg 12-20-2018 no name [facility] 14:36-0400 ([id number]) Body weight 49.6692 kg (no code) kg 12-18-2018 no name [facility] 11:54-0400 ([id number]) Body weight 49.2156 kg (no code) kg 12-17-2018 no name [facility] 12:090400 ([id number]) Body weight 49.6692 kg (no code) kg 12-15-2018 no name [facility] 10:20-0400 ([id number]) Body weight 49.896 kg (no code) kg 12-14-2018 no name [facility] 12:18-0400 ([id number]) Body weight 48.9888 kg (no code) kg 12-13-2018 no name [facility] 10:29-0400 ([id number]) Body weight 49.4424 kg (L) kg 12-10-2018 no name [facility] 12:08-0400 ([id number]) Body weight 50.8032 kg (no code) kg 12-09-2018 no name [facility] 11:29-0400 ([id number]) Body weight 49.896 kg (no code) kg 12-08-2018 no name [facility] 11:20-0400 ([id number]) Body weight 50.3496 kg (no code) kg 12-07-2018 no name [facility] 12:54-0400 ([id number]) Body weight 49.896 kg (no code) kg 12-06-2018 no name [facility] 13:27-0400 ([id number]) Body weight 51.9372 kg (H) kg 12-03-2018 no name [facility] 12:36-0400 ([id number]) Body weight 50.5764 kg (no code) kg 12-02-2018 no name [facility] 11:03-0400 ([id number]) Body weight 50.5764 kg (no code) kg 12-01-2018 no name [facility] 16:38-0400 ([id number]) Body weight 51.2568 kg (no code) kg 11-29-2018 no name [facility] 17:24-0400 ([id number]) Body weight 50.3496 kg (no code) kg 11-26-2018 no name [facility] 10:10-0400 ([id number]) Body weight 50.1228 kg (no code) kg 11-24-2018 no name [facility] 14:11-0400 ([id number]) Body weight 49.896 kg (no code) kg 11-23-2018 no name [facility] 14:30-0400 ([id number]) Body weight 51.4836 kg (no code) kg 11-19-2018 no name [facility] 11:16-0400 ([id number]) Body weight 52.164 kg (no code) kg 11-17-2018 no name [facility] 10:41-0400 ([id number]) Body weight 52.3908 kg (no code) kg 11-16-2018 no name [facility] 14:06-0400 ([id number]) Body weight 51.7104 kg (no code) kg 11-15-2018 no name [facility] 17:53-0400 ([id number]) Body weight 51.2568 kg (no code) kg 11-13-2018 no name [facility] 10:090400 ([id number]) Body weight 51.2568 kg (no code) kg 11-12-2018 no name [facility] 10:11-0400 ([id number]) Body weight 51.2568 kg (no code) kg 11-11-2018 no name [facility] 10:12-0400 ([id number]) Body weight 51.7104 kg (HH) kg 11-10-2018 no name [facility] 14:030400 ([id number]) Body weight 50.1228 kg (no code) kg 11-09-2018 no name [facility] 16:050400 ([id number]) Body weight 50.5764 kg (no code) kg 11-08-2018 no name [facility] 11:36-0400 ([id number]) Body weight 51.2568 kg (no code) kg 11-06-2018 no name [facility] 11:300400 ([id number]) Body weight 50.5764 kg (no code) kg 11-05-2018 no name [facility] 17:20-0400 ([id number]) Body weight 50.1228 kg (no code) kg 11-04-2018 no name [facility] 10:120400 ([id number]) Body weight 50.0094 kg (no code) kg 11-03-2018 no name [facility] 10:00-0400 ([id number]) Body weight 50.1228 kg (no code) kg 11-03-2018 no name [facility] 10:000400 ([id number]) Body weight 50.1228 kg (no code) kg 11-02-2018 no name [facility] 10:000400 ([id number]) Body weight 50.5764 kg (no code) kg 11-01-2018 no name [facility] 10:000400 ([id number]) Body weight 50.3496 kg (no code) kg 10-31-2018 no name [facility] 10:00-0400 ([id number]) Body weight 50.5764 kg (no code) kg 10-29-2018 no name [facility] 11:32-0400 ([id number]) Body weight 49.6692 kg (L) kg 10-27-2018 no name [facility] 18:50-0400 ([id number]) Body weight 50.8032 kg (no code) kg 10-26-2018 no name [facility] 14:48-0400 ([id number]) Body weight 50.3496 kg (no code) kg 10-23-2018 no name [facility] 10:57-0400 ([id number]) Body weight 50.3496 kg (no code) kg 10-22-2018 no name [facility] 11:23-0400 ([id number]) Body weight 50.3496 kg (no code) kg 10-21-2018 no name [facility] 10:49-0400 ([id number]) Body weight 50.3496 kg (no code) kg 10-20-2018 no name [facility] 10:12-0400 ([id number]) Body weight 51.03 kg (no code) kg 10-19-2018 no name [facility] 14:22-0400 ([id number]) Body weight 51.2568 kg (no code) kg 10-18-2018 no name [facility] 14:30-0400 ([id number]) Body weight 51.9372 kg (no code) kg 10-15-2018 no name [facility] 10:37-0400 ([id number]) Body weight 51.03 kg (no code) kg 10-14-2018 no name [facility] 10:22-0400 ([id number]) Body weight 51.4836 kg (no code) kg 10-12-2018 no name [facility] 15:04-0400 ([id number]) Body weight 51.4836 kg (no code) kg 10-11-2018 no name [facility] 14:29-0400 ([id number]) Body weight 50.8032 kg (no code) kg 10-09-2018 no name [facility] 10:55-0400 ([id number]) Body weight 51.2568 kg (H) kg 10-08-2018 no name [facility] 10:28-0400 ([id number]) Body weight 49.896 kg (no code) kg 10-07-2018 no name [facility] 11:090400 ([id number]) Body weight 51.2568 kg (no code) kg 10-04-2018 no name [facility] 14:39-0400 ([id number]) Body weight 51.03 kg (no code) kg 10-01-2018 no name [facility] 10:120400 ([id number]) Body weight 50.5764 kg (no code) kg 09-30-2018 no name [facility] 11:18-0400 ([id number]) Body weight 50.3496 kg (no code) kg 09-29-2018 no name [facility] 11:04-0400 ([id number]) Body weight 50.3496 kg (no code) kg 09-27-2018 no name [facility] 16:16-0400 ([id number]) Body weight 50.1228 kg (no code) kg 09-25-2018 no name [facility] 11:13-0400 ([id number]) Body weight 50.3496 kg (no code) kg 09-24-2018 no name [facility] 11:32-0400 ([id number]) Body weight 50.3496 kg (no code) kg 09-22-2018 no name [facility] 12:09-0400 ([id number]) Body weight 50.3496 kg (no code) kg 09-21-2018 no name [facility] 15:40-0400 ([id number]) Body weight 50.3496 kg (no code) kg 09-20-2018 no name [facility] 15:14-0400 ([id number]) Body weight 50.3496 kg (no code) kg 09-18-2018 no name [facility] 11:17-0400 ([id number]) Body weight 51.03 kg (no code) kg 09-17-2018 no name [facility] 11:03-0400 ([id number]) Body weight 51.2568 kg (no code) kg 09-16-2018 no name [facility] 10:06-0400 ([id number]) Body weight 50.5764 kg (L) kg 09-15-2018 no name [facility] 12:45-0400 ([id number]) Body weight 51.7104 kg (no code) kg 09-14-2018 no name [facility] 12:42-0400 ([id number]) Body weight 51.2568 kg (no code) kg 09-13-2018 no name [facility] 13:46-0400 ([id number]) Body weight 50.1228 kg (no code) kg 09-11-2018 no name [facility] 10:17-0400 ([id number]) Body weight 50.5764 kg (no code) kg 09-10-2018 no name [facility] 12:35-0400 ([id number]) Body weight 51.03 kg (no code) kg 09-09-2018 no name [facility] 10:27-0400 ([id number]) Body weight 51.03 kg (H) kg 09-08-2018 no name [facility] 15:15-0400 ([id number]) Body weight 49.896 kg (no code) kg 09-07-2018 no name [facility] 15:56-0400 ([id number]) Body weight 49.896 kg (no code) kg 2018 no name [facility] 13:15-0400 ([id number]) Body weight 48.9888 kg (no code) kg 09-03-2018 no name [facility] 12:58-0400 ([id number]) Body weight 49.6692 kg (no code) kg 09-01-2018 no name [facility] 15:01-0400 ([id number]) Body weight 48.9888 kg (L) kg 08-31-2018 no name [facility] 17:40-0400 ([id number]) Body weight 50.3496 kg (no code) kg 08-30-2018 no name [facility] 15:11-0400 ([id number]) Body weight 50.8032 kg (no code) kg 08-25-2018 no name [facility] 16:44-0400 ([id number]) Body weight 50.3496 kg (no code) kg 08-24-2018 no name [facility] 13:59-0400 ([id number]) Body weight 51.2568 kg (no code) kg 08-23-2018 no name [facility] 14:42-0400 ([id number]) Body weight 49.4424 kg (no code) kg 08-13-2018 no name [facility] 13:55-0400 ([id number]) Body weight 49.896 kg (no code) kg 08-12-2018 no name [facility] 10:21-0400 ([id number]) Body weight 50.1228 kg (no code) kg 08-11-2018 no name [facility] 12:20-0400 ([id number]) Body weight 49.896 kg (no code) kg 08-10-2018 no name [facility] 13:33-0400 ([id number]) Body weight 49.4424 kg (no code) kg 08-09-2018 no name [facility] 13:29-0400 ([id number]) Body weight 51.2568 kg (no code) kg 08-06-2018 no name [facility] 10:35-0400 ([id number]) Body weight 51.03 kg (no code) kg 08-05-2018 no name [facility] 11:04-0400 ([id number]) Body weight 50.8032 kg (no code) kg 08-04-2018 no name [facility] 10:25-0400 ([id number]) Body weight 50.8032 kg (no code) kg 08-03-2018 no name [facility] 13:34-0400 ([id number]) Body weight 50.5764 kg (no code) kg 08-02-2018 no name [facility] 11:11-0400 ([id number]) Body weight 50.1228 kg (no code) kg 07-31-2018 no name [facility] 15:14-0400 ([id number]) Body weight 49.4424 kg (no code) kg 07-30-2018 no name [facility] 10:57-0400 ([id number]) Body weight 50.3496 kg (no code) kg 07-29-2018 no name [facility] 14:10-0400 ([id number]) Body weight 49.4424 kg (no code) kg 07-24-2018 no name [facility] 10:580400 ([id number]) Body weight 49.896 kg (no code) kg 07-23-2018 no name [facility] 10:520400 ([id number]) Body weight 50.3496 kg (no code) kg 07-22-2018 no name [facility] 11:050400 ([id number]) Body weight 50.3496 kg (no code) kg 07-21-2018 no name [facility] 11:360400 ([id number]) Body weight 49.896 kg (no code) kg 07-20-2018 no name [facility] 14:030400 ([id number]) Body weight 49.896 kg (no code) kg 07-19-2018 no name [facility] 14:21-0400 ([id number]) Body weight 50.5764 kg (no code) kg 07-17-2018 no name [facility] 10:370400 ([id number]) Body weight 50.3496 kg (no code) kg 07-16-2018 no name [facility] 10:210400 ([id number]) Body weight 50.3496 kg (no code) kg 07-15-2018 no name [facility] 11:380400 ([id number]) Body weight 49.896 kg (no code) kg 07-14-2018 no name [facility] 16:43-0400 ([id number]) Body weight 52.164 kg (no code) kg 07-12-2018 no name [facility] 13:40-0400 ([id number]) Body weight 50.3496 kg (no code) kg 07-09-2018 no name [facility] 13:17-0400 ([id number]) Body weight 49.6692 kg (no code) kg 07-08-2018 no name [facility] 11:43-0400 ([id number]) Body weight 48.9888 kg (no code) kg 07-07-2018 no name [facility] 17:02-0400 ([id number]) Body weight 50.3496 kg (no code) kg 07-04-2018 no name [facility] 16:14-0400 ([id number]) Body weight 50.3496 kg (no code) kg 07-03-2018 no name [facility] 10:35-0400 ([id number]) Body weight 51.03 kg (no code) kg 07-02-2018 no name [facility] 15:11-0400 ([id number]) Body weight 51.03 kg (no code) kg 07-01-2018 no name [facility] 11:50-0400 ([id number]) Body weight 51.2568 kg (no code) kg 06-30-2018 no name [facility] 10:36-0400 ([id number]) Body weight 50.3496 kg (L) kg 06-29-2018 no name [facility] 12:51-0400 ([id number]) Body weight 51.4836 kg (no code) kg 06-28-2018 no name [facility] 13:26-0400 ([id number]) Body weight 51.4836 kg (no code) kg 06-25-2018 no name [facility] 11:53-0400 ([id number]) Body weight 51.2568 kg (no code) kg 06-24-2018 no name [facility] 11:03-0400 ([id number]) Body weight 51.4836 kg (no code) kg 06-23-2018 no name [facility] 10:43-0400 ([id number]) Body weight 51.9372 kg (no code) kg 06-22-2018 no name [facility] 13:36-0400 ([id number]) Body weight 52.164 kg (no code) kg 06-21-2018 no name [facility] 12:48-0400 ([id number]) Body weight 51.9372 kg (no code) kg 06-18-2018 no name [facility] 14:55-0400 ([id number]) Body weight 51.7104 kg (no code) kg 06-16-2018 no name [facility] 14:19-0400 ([id number]) Body weight 51.7104 kg (no code) kg 06-15-2018 no name [facility] 14:43-0400 ([id number]) Body weight 51.4836 kg (no code) kg 06-14-2018 no name [facility] 14:48-0400 ([id number]) Body weight 51.03 kg (no code) kg 06-12-2018 no name [facility] 11:13-0400 ([id number]) Body weight 51.9372 kg (H) kg 06-11-2018 no name [facility] 11:20-0400 ([id number]) Body weight 50.5764 kg (no code) kg 06-10-2018 no name [facility] 10:34-0400 ([id number]) Body weight 50.8032 kg (no code) kg 06-09-2018 no name [facility] 12:42-0400 ([id number]) Body weight 51.4836 kg (no code) kg 06-08-2018 no name [facility] 16:51-0400 ([id number]) Body weight 51.03 kg (no code) kg 06-07-2018 no name [facility] 13:38-0400 ([id number]) Body weight 51.2568 kg (no code) kg 06-05-2018 no name [facility] 14:28-0400 ([id number]) Body weight 51.2568 kg (H) kg 06-04-2018 no name [facility] 12:54-0400 ([id number]) Body weight 50.1228 kg (no code) kg 06-03-2018 no name [facility] 11:44-0400 ([id number]) Body weight 50.1228 kg (no code) kg 06-02-2018 no name [facility] 10:52-0400 ([id number]) Body weight 49.896 kg (no code) kg 06-01-2018 no name [facility] 15:09-0400 ([id number]) Body weight 49.896 kg (no code) kg 05-31-2018 no name [facility] 14:33-0400 ([id number]) Body weight 50.5764 kg (no code) kg 05-29-2018 no name [facility] 11:46-0500 ([id number]) Body weight 50.3496 kg (no code) kg 05-28-2018 no name [facility] 10:53-0500 ([id number]) Body weight 50.5764 kg (no code) kg 05-27-2018 no name [facility] 11:02-0500 ([id number]) Body weight 50.5764 kg (no code) kg 05-26-2018 no name [facility] 10:36-0500 ([id number]) Body weight 51.7104 kg (no code) kg 05-22-2018 no name [facility] 12:17-0500 ([id number]) Body weight 51.03 kg (no code) kg 05-21-2018 no name [facility] 16:40-0500 ([id number]) Body weight 50.5764 kg (no code) kg 05-19-2018 no name [facility] 10:34-0500 ([id number]) Body weight 50.5764 kg (no code) kg 05-18-2018 no name [facility] 14:11-0500 ([id number]) Body weight 50.5764 kg (no code) kg 05-17-2018 no name [facility] 11:51-0500 ([id number]) Body weight 50.8032 kg (no code) kg 05-15-2018 no name [facility] 16:35-0500 ([id number]) Body weight 50.8032 kg (no code) kg 05-14-2018 no name [facility] 11:10-0500 ([id number]) Body weight 52.3908 kg (no code) kg 05-11-2018 no name [facility] 14:04-0500 ([id number]) Body weight 52.3908 kg (no code) kg 05-10-2018 no name [facility] 14:02-0500 ([id number]) Body weight 51.7104 kg (no code) kg 05-08-2018 no name [facility] 11:09-0500 ([id number]) Body weight 51.2568 kg (no code) kg 05-07-2018 no name [facility] 11:41-0500 ([id number]) Body weight 50.3496 kg (no code) kg 05-06-2018 no name [facility] 10:41-0500 ([id number]) Body weight 51.03 kg (no code) kg 05-05-2018 no name [facility] 10:44-0500 ([id number]) Body weight 51.2568 kg (L) kg 05-04-2018 no name [facility] 14:01-0500 ([id number]) Body weight 52.6176 kg (no code) kg 05-03-2018 no name [facility] 10:53-0500 ([id number]) Body weight 50.8032 kg (no code) kg 05-01-2018 no name [facility] 12:21-0500 ([id number]) Body weight 52.3908 kg (no code) kg 04-28-2018 no name [facility] 10:46-0500 ([id number]) Body weight 53.0712 kg (no code) kg 04-27-2018 no name [facility] 13:56-0500 ([id number]) Body weight 52.6176 kg (no code) kg 04-26-2018 no name [facility] 12:58-0500 ([id number]) Body weight 52.8444 kg (no code) kg 04-23-2018 no name [facility] 10:40-0500 ([id number]) Body weight 52.164 kg (no code) kg 04-22-2018 no name [facility] 12:19-0500 ([id number]) Body weight 52.3908 kg (no code) kg 04-21-2018 no name [facility] 13:10-0500 ([id number]) Body weight 52.3908 kg (no code) kg 04-20-2018 no name [facility] 14:12-0500 ([id number]) Body weight 52.3908 kg (no code) kg 04-19-2018 no name [facility] 13:48-0500 ([id number]) Body weight 51.4836 kg (L) kg 04-16-2018 no name [facility] 10:31-0500 ([id number]) Body weight 52.8444 kg (H) kg 04-15-2018 no name [facility] 12:32-0500 ([id number]) Body weight 51.4836 kg (no code) kg 04-14-2018 no name [facility] 10:42-0500 ([id number]) Body weight 51.7104 kg (no code) kg 04-13-2018 no name [facility] 14:54-0500 ([id number]) Body weight 51.9372 kg (no code) kg 04-12-2018 no name [facility] 17:54-0500 ([id number]) Body weight 52.3908 kg (L) kg 04-10-2018 no name [facility] 10:35-0500 ([id number]) Body weight 53.7516 kg (no code) kg 04-09-2018 no name [facility] 15:10-0500 ([id number]) Body weight 53.0712 kg (no code) kg 04-07-2018 no name [facility] 10:50-0500 ([id number]) Body weight 53.0712 kg (no code) kg 04-05-2018 no name [facility] 13:26-0500 ([id number]) Body weight 51.9372 kg (no code) kg 04-03-2018 no name [facility] 11:20-0500 ([id number]) Body weight 52.164 kg (no code) kg 04-02-2018 no name [facility] 11:23-0500 ([id number]) Body weight 51.7104 kg (no code) kg 03-31-2018 no name [facility] 10:13-0500 ([id number]) Body weight 52.3908 kg (no code) kg 03-30-2018 no name [facility] 13:56-0500 ([id number]) Body weight 52.3908 kg (no code) kg 03-29-2018 no name [facility] 14:39-0500 ([id number]) Body weight 52.6176 kg (no code) kg 03-27-2018 no name [facility] 10:24-0500 ([id number]) Body weight 51.7104 kg (no code) kg 03-26-2018 no name [facility] 10:18-0500 ([id number]) Body weight 52.164 kg (no code) kg 03-25-2018 no name [facility] 10:35-0500 ([id number]) Body weight 51.7104 kg (no code) kg 03-24-2018 no name [facility] 17:18-0500 ([id number]) Body weight 52.6176 kg (no code) kg 03-12-2018 no name [facility] 12:48-0500 ([id number]) Body weight 52.3908 kg (no code) kg 03-10-2018 no name [facility] 11:24-0500 ([id number]) Body weight 52.8444 kg (no code) kg 03-09-2018 no name W [facility] 14:19-0500 ([id number]) Body weight 52.6176 kg (no code) kg 03-08-2018 no name W [facility] 13:45-0500 ([id number]) Body weight 52.6176 kg (no code) kg 03-06-2018 no name W [facility] 13:02-0500 ([id number]) Body weight 52.6176 kg (no code) kg 03-05-2018 no name W [facility] 13:02-0500 ([id number]) Body weight 52.8444 kg (no code) kg 03-02-2018 no name W [facility] 13:14-0500 ([id number]) Body weight 52.6176 kg (no code) kg 03-01-2018 no name W [facility] 11:24-0500 ([id number]) Body weight 53.0712 kg (no code) kg 02-27-2018 no name W [facility] 11:40-0500 ([id number]) Body weight 52.6176 kg (no code) kg 02-26-2018 no name W [facility] 12:39-0500 ([id number]) Body weight 52.6176 kg (no code) kg 02-25-2018 no name [facility] 12:50-0500 ([id number]) Body weight 53.298 kg (no code) kg 02-23-2018 no name [facility] 14:070500 ([id number]) Body weight 52.164 kg (no code) kg 02-17-2018 no name [facility] 14:480500 ([id number]) Body weight 52.3908 kg (no code) kg 02-16-2018 no name [facility] 14:530500 ([id number]) Body weight 52.6176 kg (no code) kg 02-15-2018 no name [facility] 14:180500 ([id number]) Body weight 52.164 kg (no code) kg 02-12-2018 no name [facility] 14:090500 ([id number]) Body weight 51.7104 kg (no code) kg 02-10-2018 no name [facility] 14:350500 ([id number]) Blood Pressure 121/ (no code) Systolic: 06-27-2019 no n [facility] 52mm[Hg] 120 mm[Hg] 10:040 ([id number]) Diastolic: 60 - 80 mm[Hg] Blood Pressure 108/ (no code) Systolic: 06-24-2019 no n [facility] 50mm[Hg] 120 mm[Hg] 10:560400 ([id number]) Diastolic: 60 - 80 mm[Hg] Blood Pressure 103/ (no code) Systolic: 06-22-2019 no n [facility] 61mm[Hg] 120 mm[Hg] 06:040 ([id number]) Diastolic: 60 - 80 mm[Hg] Blood Pressure 135/ (no code) Systolic: 06-21-2019 no n [facility] 66mm[Hg] 120 mm[Hg] 09:0400 ([id number]) Diastolic: 60 - 80 mm[Hg] Blood Pressure 116/ (no code) Systolic: 06-20-2019 no n [facility] 71mm[Hg] 120 mm[Hg] 09:0400 ([id number]) Diastolic: 60 - 80 mm[Hg] Blood Pressure 114/ (no code) Systolic: 06-18-2019 no n [facility] 61mm[Hg] 120 mm[Hg] 09:25-0400 ([id number]) Diastolic: 60 - 80 mm[Hg] Blood Pressure 148/ (no code) Systolic: 06-17-2019 no n [facility] 68mm[Hg] 120 mm[Hg] 06:54-0400 ([id number]) Diastolic: 60 - 80 mm[Hg] Blood Pressure 110/ (L) Systolic: 06-15-2019 no na [facility] 48mm[Hg] 120 mm[Hg] 05:41-0400 ([id number]) Diastolic: 60 - 80 mm[Hg] Blood Pressure 154/ (no code) Systolic: 06-14-2019 no n [facility] 63mm[Hg] 120 mm[Hg] 10:48-0400 ([id number]) Diastolic: 60 - 80 mm[Hg] Blood Pressure 137/ (H) Systolic: 06-13-2019 no na [facility] 99mm[Hg] 120 mm[Hg] 09:53-0400 ([id number]) Diastolic: 60 - 80 mm[Hg] Blood Pressure 164/ (H) Systolic: 06-10-2019 no na [facility] 67mm[Hg] 120 mm[Hg] 05:15-0400 ([id number]) Diastolic: 60 - 80 mm[Hg] Blood Pressure 156/ (no code) Systolic: 06-08-2019 no n [facility] 55mm[Hg] 120 mm[Hg] 07:58-0400 ([id number]) Diastolic: 60 - 80 mm[Hg] Blood Pressure 112/ (no code) Systolic: 06-07-2019 no n [facility] 50mm[Hg] 120 mm[Hg] 10:09-0400 ([id number]) Diastolic: 60 - 80 mm[Hg] Blood Pressure 141/ (no code) Systolic: 06-06-2019 no n [facility] 65mm[Hg] 120 mm[Hg] 08:39-0400 ([id number]) Diastolic: 60 - 80 mm[Hg] Blood Pressure 122/ (no code) Systolic: 06-04-2019 no n [facility] 52mm[Hg] 120 mm[Hg] 07:42-0400 ([id number]) Diastolic: 60 - 80 mm[Hg] Blood Pressure 128/ (no code) Systolic: 06-03-2019 no n [facility] 56mm[Hg] 120 mm[Hg] 06:37-0400 ([id number]) Diastolic: 60 - 80 mm[Hg] Blood Pressure 160/ (no code) Systolic: 06-01-2019 no n [facility] 73mm[Hg] 120 mm[Hg] 06:07-0400 ([id number]) Diastolic: 60 - 80 mm[Hg] Blood Pressure 116/ (no code) Systolic: 05-31-2019 no n [facility] 59mm[Hg] 120 mm[Hg] 09:00-0400 ([id number]) Diastolic: 60 - 80 mm[Hg] Blood Pressure 116/ (no code) Systolic: 05-30-2019 no n [facility] 70mm[Hg] 120 mm[Hg] 09:13-0400 ([id number]) Diastolic: 60 - 80 mm[Hg] Blood Pressure 127/ (no code) Systolic: 05-28-2019 no n [facility] 66mm[Hg] 120 mm[Hg] 04:30-0500 ([id number]) Diastolic: 60 - 80 mm[Hg] Blood Pressure 108/ (no code) Systolic: 05-27-2019 no n [facility] 58mm[Hg] 120 mm[Hg] 05:50-0500 ([id number]) Diastolic: 60 - 80 mm[Hg] Blood Pressure 118/ (no code) Systolic: 05-26-2019 no n [facility] 69mm[Hg] 120 mm[Hg] 05:57-0500 ([id number]) Diastolic: 60 - 80 mm[Hg] Blood Pressure 111/ (no code) Systolic: 05-25-2019 no n [facility] 54mm[Hg] 120 mm[Hg] 04:46-0500 ([id number]) Diastolic: 60 - 80 mm[Hg] Blood Pressure 156/ (no code) Systolic: 05-24-2019 no n [facility] 66mm[Hg] 120 mm[Hg] 04:02-0500 ([id number]) Diastolic: 60 - 80 mm[Hg] Blood Pressure 106/ (no code) Systolic: 05-23-2019 no n [facility] 62mm[Hg] 120 mm[Hg] 03:50-0500 ([id number]) Diastolic: 60 - 80 mm[Hg] Blood Pressure 96/ (no code) Systolic: 05-21-2019 no n [facility] 53mm[Hg] 120 mm[Hg] 07:55-0500 ([id number]) Diastolic: 60 - 80 mm[Hg] Blood Pressure 114/ (no code) Systolic: 05-20-2019 no n [facility] 59mm[Hg] 120 mm[Hg] 05:12-0500 ([id number]) Diastolic: 60 - 80 mm[Hg] Blood Pressure 156/ (no code) Systolic: 05-19-2019 no n [facility] 77mm[Hg] 120 mm[Hg] 04:17-0500 ([id number]) Diastolic: 60 - 80 mm[Hg] Blood Pressure 119/ (no code) Systolic: 05-18-2019 no n [facility] 65mm[Hg] 120 mm[Hg] 04:04-0500 ([id number]) Diastolic: 60 - 80 mm[Hg] Blood Pressure 120/ (no code) Systolic: 05-17-2019 no n [facility] 58mm[Hg] 120 mm[Hg] 06:41-0500 ([id number]) Diastolic: 60 - 80 mm[Hg] Blood Pressure 155/ (no code) Systolic: 05-16-2019 no n [facility] 74mm[Hg] 120 mm[Hg] 08:04-0500 ([id number]) Diastolic: 60 - 80 mm[Hg] Blood Pressure 152/ (no code) Systolic: 05-14-2019 no n [facility] 73mm[Hg] 120 mm[Hg] 05:03-0500 ([id number]) Diastolic: 60 - 80 mm[Hg] Blood Pressure 168/ (H) Systolic: 05-13-2019 no na [facility] 77mm[Hg] 120 mm[Hg] 12:31-0500 ([id number]) Diastolic: 60 - 80 mm[Hg] Blood Pressure 125/ (no code) Systolic: 05-11-2019 no n [facility] 69mm[Hg] 120 mm[Hg] 10:51-0500 ([id number]) Diastolic: 60 - 80 mm[Hg] Blood Pressure 125/ (no code) Systolic: 05-10-2019 no n [facility] 65mm[Hg] 120 mm[Hg] 06:11-0500 ([id number]) Diastolic: 60 - 80 mm[Hg] Blood Pressure 104/ (no code) Systolic: 05-09-2019 no n [facility] 58mm[Hg] 120 mm[Hg] 07:09-0500 ([id number]) Diastolic: 60 - 80 mm[Hg] Blood Pressure 92/ (no code) Systolic: 05-07-2019 no n [facility] 65mm[Hg] 120 mm[Hg] 05:25-0500 ([id number]) Diastolic: 60 - 80 mm[Hg] Blood Pressure 128/ (no code) Systolic: 05-06-2019 no n [facility] 80mm[Hg] 120 mm[Hg] 05:36-0500 ([id number]) Diastolic: 60 - 80 mm[Hg] Blood Pressure 149/ (no code) Systolic: 05-04-2019 no n [facility] 73mm[Hg] 120 mm[Hg] 11:45-0500 ([id number]) Diastolic: 60 - 80 mm[Hg] Blood Pressure 149/ (no code) Systolic: 05-04-2019 no n [facility] 73mm[Hg] 120 mm[Hg] 03:48-0500 ([id number]) Diastolic: 60 - 80 mm[Hg] Blood Pressure 90/ (no code) Systolic: 05-03-2019 no n [facility] 50mm[Hg] 120 mm[Hg] 08:12-0500 ([id number]) Diastolic: 60 - 80 mm[Hg] Blood Pressure 142/ (no code) Systolic: 05-02-2019 no n [facility] 66mm[Hg] 120 mm[Hg] 10:49-0500 ([id number]) Diastolic: 60 - 80 mm[Hg] Blood Pressure 142/ (no code) Systolic: 04-29-2019 no n [facility] 66mm[Hg] 120 mm[Hg] 03:22-0500 ([id number]) Diastolic: 60 - 80 mm[Hg] Blood Pressure 159/ (no code) Systolic: 04-27-2019 no n [facility] 69mm[Hg] 120 mm[Hg] 08:14-0500 ([id number]) Diastolic: 60 - 80 mm[Hg] Blood Pressure 122/ (no code) Systolic: 04-26-2019 no n [facility] 54mm[Hg] 120 mm[Hg] 06:28-0500 ([id number]) Diastolic: 60 - 80 mm[Hg] Blood Pressure 128/ (no code) Systolic: 04-25-2019 no n [facility] 65mm[Hg] 120 mm[Hg] 08:36-0500 ([id number]) Diastolic: 60 - 80 mm[Hg] Blood Pressure 136/ (no code) Systolic: 04-22-2019 no n [facility] 69mm[Hg] 120 mm[Hg] 05:01-0500 ([id number]) Diastolic: 60 - 80 mm[Hg] Blood Pressure 140/ (no code) Systolic: 04-21-2019 no n [facility] 83mm[Hg] 120 mm[Hg] 05:20-0500 ([id number]) Diastolic: 60 - 80 mm[Hg] Blood Pressure 128/ (no code) Systolic: 04-20-2019 no n [facility] 67mm[Hg] 120 mm[Hg] 05:15-0500 ([id number]) Diastolic: 60 - 80 mm[Hg] Blood Pressure 112/ (no code) Systolic: 04-19-2019 no n [facility] 60mm[Hg] 120 mm[Hg] 08:40-0500 ([id number]) Diastolic: 60 - 80 mm[Hg] Blood Pressure 161/ (H) Systolic: 04-18-2019 no na me [facility] 74mm[Hg] 120 mm[Hg] 06:280500 ([id number]) Diastolic: 60 - 80 mm[Hg] Blood Pressure 119/ (L) Systolic: 04-16-2019 no na me [facility] 48mm[Hg] 120 mm[Hg] 09:310500 ([id number]) Diastolic: 60 - 80 mm[Hg] Blood Pressure 161/ (H) Systolic: 04-15-2019 no na me [facility] 74mm[Hg] 120 mm[Hg] 04:220500 ([id number]) Diastolic: 60 - 80 mm[Hg] Blood Pressure 183/ (HH) Systolic: 04-15-2019 no na me [facility] 80mm[Hg] 120 mm[Hg] 04:0500 ([id number]) Diastolic: 60 - 80 mm[Hg] Blood Pressure 163/ (H) Systolic: 04-14-2019 no na me [facility] 75mm[Hg] 120 mm[Hg] 06:0500 ([id number]) Diastolic: 60 - 80 mm[Hg] Blood Pressure 136/ (no code) Systolic: 04-13-2019 no n [facility] 70mm[Hg] 120 mm[Hg] 04:190500 ([id number]) Diastolic: 60 - 80 mm[Hg] Blood Pressure 148/ (no code) Systolic: 04-12-2019 no n [facility] 63mm[Hg] 120 mm[Hg] 05:400500 ([id number]) Diastolic: 60 - 80 mm[Hg] Blood Pressure 141/ (no code) Systolic: 04-11-2019 no n [facility] 74mm[Hg] 120 mm[Hg] 08:520500 ([id number]) Diastolic: 60 - 80 mm[Hg] Blood Pressure 144/ (H) Systolic: 04-10-2019 no na [facility] 98mm[Hg] 120 mm[Hg] 04:520500 ([id number]) Diastolic: 60 - 80 mm[Hg] Blood Pressure 147/ (no code) Systolic: 04-09-2019 no n [facility] 70mm[Hg] 120 mm[Hg] 05:280500 ([id number]) Diastolic: 60 - 80 mm[Hg] Blood Pressure 147/ (no code) Systolic: 04-08-2019 no n [facility] 70mm[Hg] 120 mm[Hg] 06:55-0500 ([id number]) Diastolic: 60 - 80 mm[Hg] Blood Pressure 136/ (no code) Systolic: 04-06-2019 no n [facility] 61mm[Hg] 120 mm[Hg] 04:17-0500 ([id number]) Diastolic: 60 - 80 mm[Hg] Blood Pressure 141/ (no code) Systolic: 04-05-2019 no n [facility] 70mm[Hg] 120 mm[Hg] 07:45-0500 ([id number]) Diastolic: 60 - 80 mm[Hg] Blood Pressure 156/ (no code) Systolic: 04-04-2019 no n [facility] 74mm[Hg] 120 mm[Hg] 04:46-0500 ([id number]) Diastolic: 60 - 80 mm[Hg] Blood Pressure 153/ (no code) Systolic: 04-03-2019 no n [facility] 71mm[Hg] 120 mm[Hg] 04:22-0500 ([id number]) Diastolic: 60 - 80 mm[Hg] Blood Pressure 111/ (no code) Systolic: 04-02-2019 no n [facility] 52mm[Hg] 120 mm[Hg] 06:29-0500 ([id number]) Diastolic: 60 - 80 mm[Hg] Blood Pressure 150/ (no code) Systolic: 04-01-2019 no n [facility] 70mm[Hg] 120 mm[Hg] 04:50-0500 ([id number]) Diastolic: 60 - 80 mm[Hg] Blood Pressure 140/ (no code) Systolic: 03-31-2019 no n [facility] 73mm[Hg] 120 mm[Hg] 04:33-0500 ([id number]) Diastolic: 60 - 80 mm[Hg] Blood Pressure 154/ (no code) Systolic: 03-30-2019 no n [facility] 76mm[Hg] 120 mm[Hg] 04:44-0500 ([id number]) Diastolic: 60 - 80 mm[Hg] Blood Pressure 112/ (no code) Systolic: 03-29-2019 no n [facility] 67mm[Hg] 120 mm[Hg] 06:55-0500 ([id number]) Diastolic: 60 - 80 mm[Hg] Blood Pressure 164/ (H) Systolic: 03-28-2019 no na [facility] 69mm[Hg] 120 mm[Hg] 06:42-0500 ([id number]) Diastolic: 60 - 80 mm[Hg] Blood Pressure 164/ (H) Systolic: 03-28-2019 no na [facility] 69mm[Hg] 120 mm[Hg] 03:21-0500 ([id number]) Diastolic: 60 - 80 mm[Hg] Blood Pressure 150/ (no code) Systolic: 03-26-2019 no n [facility] 93mm[Hg] 120 mm[Hg] 04:19-0500 ([id number]) Diastolic: 60 - 80 mm[Hg] Blood Pressure 156/ (no code) Systolic: 03-25-2019 no n [facility] 68mm[Hg] 120 mm[Hg] 04:08-0500 ([id number]) Diastolic: 60 - 80 mm[Hg] Blood Pressure 136/ (no code) Systolic: 03-22-2019 no n [facility] 74mm[Hg] 120 mm[Hg] 07:34-0500 ([id number]) Diastolic: 60 - 80 mm[Hg] Blood Pressure 184/ (HH) Systolic: 03-22-2019 no na [facility] 87mm[Hg] 120 mm[Hg] 07:32-0500 ([id number]) Diastolic: 60 - 80 mm[Hg] Blood Pressure 106/ (no code) Systolic: 03-21-2019 no n [facility] 51mm[Hg] 120 mm[Hg] 08:18-0500 ([id number]) Diastolic: 60 - 80 mm[Hg] Blood Pressure 152/ (no code) Systolic: 03-18-2019 no n [facility] 66mm[Hg] 120 mm[Hg] 04:05-0500 ([id number]) Diastolic: 60 - 80 mm[Hg] Blood Pressure 155/ (no code) Systolic: 03-15-2019 no n [facility] 71mm[Hg] 120 mm[Hg] 06:42-0500 ([id number]) Diastolic: 60 - 80 mm[Hg] Blood Pressure 125/ (no code) Systolic: 03-14-2019 no n [facility] 68mm[Hg] 120 mm[Hg] 09:10-0500 ([id number]) Diastolic: 60 - 80 mm[Hg] Blood Pressure 176/ (HH) Systolic: 03-13-2019 no na [facility] 70mm[Hg] 120 mm[Hg] 04:19-0500 ([id number]) Diastolic: 60 - 80 mm[Hg] Blood Pressure 111/ (no code) Systolic: 03-12-2019 no n [facility] 55mm[Hg] 120 mm[Hg] 07:59-0500 ([id number]) Diastolic: 60 - 80 mm[Hg] Blood Pressure 126/ (no code) Systolic: 03-10-2019 no n [facility] 79mm[Hg] 120 mm[Hg] 06:09-0500 ([id number]) Diastolic: 60 - 80 mm[Hg] Blood Pressure 160/ (no code) Systolic: 03-09-2019 no n [facility] 68mm[Hg] 120 mm[Hg] 04:59-0500 ([id number]) Diastolic: 60 - 80 mm[Hg] Blood Pressure 176/ (HH) Systolic: 03-09-2019 no na [facility] 71mm[Hg] 120 mm[Hg] 04:56-0500 ([id number]) Diastolic: 60 - 80 mm[Hg] Blood Pressure 125/ (no code) Systolic: 03-08-2019 no n [facility] 71mm[Hg] 120 mm[Hg] 08:05-0500 ([id number]) Diastolic: 60 - 80 mm[Hg] Blood Pressure 148/ (no code) Systolic: 03-07-2019 no n [facility] 70mm[Hg] 120 mm[Hg] 07:16-0500 ([id number]) Diastolic: 60 - 80 mm[Hg] Blood Pressure 96/ (no code) Systolic: 03-05-2019 no n [facility] 57mm[Hg] 120 mm[Hg] 08:24-0500 ([id number]) Diastolic: 60 - 80 mm[Hg] Blood Pressure 79/ (LL) Systolic: 03-05-2019 no na [facility] 52mm[Hg] 120 mm[Hg] 08:19-0500 ([id number]) Diastolic: 60 - 80 mm[Hg] Blood Pressure 130/ (no code) Systolic: 03-04-2019 no n [facility] 75mm[Hg] 120 mm[Hg] 05:32-0500 ([id number]) Diastolic: 60 - 80 mm[Hg] Blood Pressure 119/ (no code) Systolic: 03-02-2019 no n [facility] 61mm[Hg] 120 mm[Hg] 04:56-0500 ([id number]) Diastolic: 60 - 80 mm[Hg] Blood Pressure 119/ (no code) Systolic: 03-01-2019 no n [facility] 65mm[Hg] 120 mm[Hg] 08:18-0500 ([id number]) Diastolic: 60 - 80 mm[Hg] Blood Pressure 125/ (no code) Systolic: 02-28-2019 no n [facility] 69mm[Hg] 120 mm[Hg] 05:46-0500 ([id number]) Diastolic: 60 - 80 mm[Hg] Blood Pressure 119/ (no code) Systolic: 02-27-2019 no n [facility] 53mm[Hg] 120 mm[Hg] 03:31-0500 ([id number]) Diastolic: 60 - 80 mm[Hg] Blood Pressure 113/ (no code) Systolic: 02-24-2019 no n [facility] 61mm[Hg] 120 mm[Hg] 09:46-0500 ([id number]) Diastolic: 60 - 80 mm[Hg] Blood Pressure 146/ (no code) Systolic: 02-23-2019 no n [facility] 66mm[Hg] 120 mm[Hg] 06:24-0500 ([id number]) Diastolic: 60 - 80 mm[Hg] Blood Pressure 101/ (no code) Systolic: 02-22-2019 no n [facility] 78mm[Hg] 120 mm[Hg] 08:16-0500 ([id number]) Diastolic: 60 - 80 mm[Hg] Blood Pressure 123/ (no code) Systolic: 02-21-2019 no n [facility] 56mm[Hg] 120 mm[Hg] 09:55-0500 ([id number]) Diastolic: 60 - 80 mm[Hg] Blood Pressure 160/ (no code) Systolic: 02-19-2019 no n [facility] 74mm[Hg] 120 mm[Hg] 05:35-0500 ([id number]) Diastolic: 60 - 80 mm[Hg] Blood Pressure 111/ (no code) Systolic: 02-18-2019 no n [facility] 66mm[Hg] 120 mm[Hg] 04:47-0500 ([id number]) Diastolic: 60 - 80 mm[Hg] Blood Pressure 152/ (no code) Systolic: 02-17-2019 no n [facility] 79mm[Hg] 120 mm[Hg] 05:00-0500 ([id number]) Diastolic: 60 - 80 mm[Hg] Blood Pressure 140/ (no code) Systolic: 02-16-2019 no n [facility] 75mm[Hg] 120 mm[Hg] 04:53-0500 ([id number]) Diastolic: 60 - 80 mm[Hg] Blood Pressure 115/ (no code) Systolic: 02-15-2019 no n [facility] 67mm[Hg] 120 mm[Hg] 04:22-0500 ([id number]) Diastolic: 60 - 80 mm[Hg] Blood Pressure 92/ (no code) Systolic: 02-14-2019 no n [facility] 54mm[Hg] 120 mm[Hg] 04:47-0500 ([id number]) Diastolic: 60 - 80 mm[Hg] Blood Pressure 152/ (no code) Systolic: 02-13-2019 no n [facility] 69mm[Hg] 120 mm[Hg] 02:42-0500 ([id number]) Diastolic: 60 - 80 mm[Hg] Blood Pressure 134/ (no code) Systolic: 02-12-2019 no n [facility] 81mm[Hg] 120 mm[Hg] 03:22-0500 ([id number]) Diastolic: 60 - 80 mm[Hg] Blood Pressure 125/ (no code) Systolic: 02-11-2019 no n [facility] 80mm[Hg] 120 mm[Hg] 05:23-0500 ([id number]) Diastolic: 60 - 80 mm[Hg] Blood Pressure 92/ (no code) Systolic: 02-10-2019 no n [facility] 52mm[Hg] 120 mm[Hg] 11:04-0500 ([id number]) Diastolic: 60 - 80 mm[Hg] Blood Pressure 92/ (no code) Systolic: 02-09-2019 no n [facility] 52mm[Hg] 120 mm[Hg] 05:08-0500 ([id number]) Diastolic: 60 - 80 mm[Hg] Blood Pressure 122/ (no code) Systolic: 02-08-2019 no n [facility] 64mm[Hg] 120 mm[Hg] 06:58-0500 ([id number]) Diastolic: 60 - 80 mm[Hg] Blood Pressure 156/ (no code) Systolic: 02-07-2019 no n [facility] 69mm[Hg] 120 mm[Hg] 04:25-0500 ([id number]) Diastolic: 60 - 80 mm[Hg] Blood Pressure 168/ (H) Systolic: 02-06-2019 no na [facility] 68mm[Hg] 120 mm[Hg] 03:40-0500 ([id number]) Diastolic: 60 - 80 mm[Hg] Blood Pressure 138/ (no code) Systolic: 02-05-2019 no n [facility] 60mm[Hg] 120 mm[Hg] 04:26-0500 ([id number]) Diastolic: 60 - 80 mm[Hg] Blood Pressure 159/ (no code) Systolic: 02-04-2019 no n [facility] 69mm[Hg] 120 mm[Hg] 05:20-0500 ([id number]) Diastolic: 60 - 80 mm[Hg] Blood Pressure 159/ (no code) Systolic: 02-04-2019 no n [facility] 69mm[Hg] 120 mm[Hg] 03:21-0500 ([id number]) Diastolic: 60 - 80 mm[Hg] Blood Pressure 163/ (H) Systolic: 02-02-2019 no na [facility] 72mm[Hg] 120 mm[Hg] 07:08-0500 ([id number]) Diastolic: 60 - 80 mm[Hg] Blood Pressure 155/ (no code) Systolic: 02-01-2019 no n [facility] 84mm[Hg] 120 mm[Hg] 04:42-0500 ([id number]) Diastolic: 60 - 80 mm[Hg] Blood Pressure 136/ (no code) Systolic: 01-31-2019 no n [facility] 74mm[Hg] 120 mm[Hg] 08:11-0500 ([id number]) Diastolic: 60 - 80 mm[Hg] Blood Pressure 136/ (no code) Systolic: 01-29-2019 no n [facility] 74mm[Hg] 120 mm[Hg] 03:50-0500 ([id number]) Diastolic: 60 - 80 mm[Hg] Blood Pressure 139/ (no code) Systolic: 01-28-2019 no n [facility] 68mm[Hg] 120 mm[Hg] 03:12-0500 ([id number]) Diastolic: 60 - 80 mm[Hg] Blood Pressure 156/ (no code) Systolic: 01-26-2019 no n [facility] 80mm[Hg] 120 mm[Hg] 05:04-0500 ([id number]) Diastolic: 60 - 80 mm[Hg] Blood Pressure 139/ (no code) Systolic: 01-25-2019 no n [facility] 71mm[Hg] 120 mm[Hg] 07:39-0500 ([id number]) Diastolic: 60 - 80 mm[Hg] Blood Pressure 131/ (no code) Systolic: 01-24-2019 no n [facility] 63mm[Hg] 120 mm[Hg] 05:34-0500 ([id number]) Diastolic: 60 - 80 mm[Hg] Blood Pressure 153/ (no code) Systolic: 01-23-2019 no n [facility] 72mm[Hg] 120 mm[Hg] 04:06-0500 ([id number]) Diastolic: 60 - 80 mm[Hg] Blood Pressure 134/ (no code) Systolic: 01-22-2019 no n [facility] 68mm[Hg] 120 mm[Hg] 05:56-0400 ([id number]) Diastolic: 60 - 80 mm[Hg] Blood Pressure 92/ (no code) Systolic: 01-21-2019 no n [facility] 53mm[Hg] 120 mm[Hg] 05:17-0400 ([id number]) Diastolic: 60 - 80 mm[Hg] Blood Pressure 157/ (no code) Systolic: 01-19-2019 no n [facility] 76mm[Hg] 120 mm[Hg] 06:19-0400 ([id number]) Diastolic: 60 - 80 mm[Hg] Blood Pressure 100/ (no code) Systolic: 01-18-2019 no n [facility] 50mm[Hg] 120 mm[Hg] 08:49-0400 ([id number]) Diastolic: 60 - 80 mm[Hg] Blood Pressure 170/ (HH) Systolic: 01-18-2019 no na me [facility] 70mm[Hg] 120 mm[Hg] 08:460400 ([id number]) Diastolic: 60 - 80 mm[Hg] Blood Pressure 164/ (H) Systolic: 01-17-2019 no na me [facility] 71mm[Hg] 120 mm[Hg] 12:110400 ([id number]) Diastolic: 60 - 80 mm[Hg] Blood Pressure 164/ (H) Systolic: 01-17-2019 no na me [facility] 71mm[Hg] 120 mm[Hg] 09:230400 ([id number]) Diastolic: 60 - 80 mm[Hg] Blood Pressure 164/ (H) Systolic: 01-16-2019 no na me [facility] 69mm[Hg] 120 mm[Hg] 10:18-0400 ([id number]) Diastolic: 60 - 80 mm[Hg] Blood Pressure 138/ (no code) Systolic: 01-15-2019 no n [facility] 74mm[Hg] 120 mm[Hg] 14:230400 ([id number]) Diastolic: 60 - 80 mm[Hg] Blood Pressure 138/ (no code) Systolic: 01-15-2019 no n [facility] 74mm[Hg] 120 mm[Hg] 10:010400 ([id number]) Diastolic: 60 - 80 mm[Hg] Blood Pressure 137/ (no code) Systolic: 01-14-2019 no n [facility] 67mm[Hg] 120 mm[Hg] 10:220400 ([id number]) Diastolic: 60 - 80 mm[Hg] Blood Pressure 140/ (no code) Systolic: 01-13-2019 no n [facility] 64mm[Hg] 120 mm[Hg] 11:110400 ([id number]) Diastolic: 60 - 80 mm[Hg] Blood Pressure 113/ (no code) Systolic: 01-12-2019 no n [facility] 66mm[Hg] 120 mm[Hg] 10:030400 ([id number]) Diastolic: 60 - 80 mm[Hg] Blood Pressure 143/ (no code) Systolic: 01-11-2019 no n [facility] 72mm[Hg] 120 mm[Hg] 11:0400 ([id number]) Diastolic: 60 - 80 mm[Hg] Blood Pressure 143/ (no code) Systolic: 01-11-2019 no n [facility] 72mm[Hg] 120 mm[Hg] 09:410400 ([id number]) Diastolic: 60 - 80 mm[Hg] Blood Pressure 158/ (no code) Systolic: 01-10-2019 no n [facility] 70mm[Hg] 120 mm[Hg] 10:570400 ([id number]) Diastolic: 60 - 80 mm[Hg] Blood Pressure 143/ (no code) Systolic: 01-09-2019 no n [facility] 72mm[Hg] 120 mm[Hg] 10:040400 ([id number]) Diastolic: 60 - 80 mm[Hg] Blood Pressure 155/ (no code) Systolic: 01-08-2019 no n [facility] 68mm[Hg] 120 mm[Hg] 10:42-0400 ([id number]) Diastolic: 60 - 80 mm[Hg] Blood Pressure 140/ (no code) Systolic: 01-07-2019 no n [facility] 53mm[Hg] 120 mm[Hg] 10:39-0400 ([id number]) Diastolic: 60 - 80 mm[Hg] Blood Pressure 136/ (no code) Systolic: 01-06-2019 no n [facility] 66mm[Hg] 120 mm[Hg] 12:59-0400 ([id number]) Diastolic: 60 - 80 mm[Hg] Blood Pressure 105/ (no code) Systolic: 01-05-2019 no n [facility] 55mm[Hg] 120 mm[Hg] 15:44-0400 ([id number]) Diastolic: 60 - 80 mm[Hg] Blood Pressure 136/ (no code) Systolic: 01-05-2019 no n l[facility] 66mm[Hg] 120 mm[Hg] 10:09-0400 ([id number]) Diastolic: 60 - 80 mm[Hg] Blood Pressure 110/ (no code) Systolic: 01-04-2019 no n [facility] 57mm[Hg] 120 mm[Hg] 12:18-0400 ([id number]) Diastolic: 60 - 80 mm[Hg] Blood Pressure 149/ (no code) Systolic: 01-03-2019 no n [facility] 65mm[Hg] 120 mm[Hg] 10:48-0400 ([id number]) Diastolic: 60 - 80 mm[Hg] Blood Pressure 129/ (no code) Systolic: 01-02-2019 no n [facility] 75mm[Hg] 120 mm[Hg] 13:42-0400 ([id number]) Diastolic: 60 - 80 mm[Hg] Blood Pressure 139/ (no code) Systolic: 01-01-2019 no n l[facility] 75mm[Hg] 120 mm[Hg] 11:16-0400 ([id number]) Diastolic: 60 - 80 mm[Hg] Blood Pressure 144/ (no code) Systolic: 12-31-2018 no n [facility] 78mm[Hg] 120 mm[Hg] 11:22-0400 ([id number]) Diastolic: 60 - 80 mm[Hg] Blood Pressure 141/ (no code) Systolic: 12-30-2018 no n [facility] 63mm[Hg] 120 mm[Hg] 10:18-0400 ([id number]) Diastolic: 60 - 80 mm[Hg] Blood Pressure 123/ (no code) Systolic: 12-29-2018 no n [facility] 57mm[Hg] 120 mm[Hg] 10:03-0400 ([id number]) Diastolic: 60 - 80 mm[Hg] Blood Pressure 96/ (L) Systolic: 12-28-2018 no na me [facility] 47mm[Hg] 120 mm[Hg] 16:07-0400 ([id number]) Diastolic: 60 - 80 mm[Hg] Blood Pressure 74/ (LL,L) Systolic: 12-28-2018 no na me [facility] 42mm[Hg] 120 mm[Hg] 14:50-0400 ([id number]) Diastolic: 60 - 80 mm[Hg] Blood Pressure 82/ (LL) Systolic: 12-28-2018 no na me [facility] 53mm[Hg] 120 mm[Hg] 14:48-0400 ([id number]) Diastolic: 60 - 80 mm[Hg] Blood Pressure 109/ (no code) Systolic: 12-27-2018 no n [facility] 50mm[Hg] 120 mm[Hg] 13:18-0400 ([id number]) Diastolic: 60 - 80 mm[Hg] Blood Pressure 85/ (LL,L) Systolic: 12-27-2018 no na me [facility] 47mm[Hg] 120 mm[Hg] 13:14-0400 ([id number]) Diastolic: 60 - 80 mm[Hg] Blood Pressure 144/ (no code) Systolic: 12-26-2018 no n [facility] 95mm[Hg] 120 mm[Hg] 09:040400 ([id number]) Diastolic: 60 - 80 mm[Hg] Blood Pressure 114/ (no code) Systolic: 12-25-2018 no n [facility] 54mm[Hg] 120 mm[Hg] 13:090400 ([id number]) Diastolic: 60 - 80 mm[Hg] Blood Pressure 144/ (H) Systolic: 12-25-2018 no na me [facility] 96mm[Hg] 120 mm[Hg] 11:080400 ([id number]) Diastolic: 60 - 80 mm[Hg] Blood Pressure 150/ (no code) Systolic: 12-24-2018 no n lashonda [facility] 63mm[Hg] 120 mm[Hg] 11:31-0400 ([id number]) Diastolic: 60 - 80 mm[Hg] Blood Pressure 151/ (no code) Systolic: 12-23-2018 no n lashonda [facility] 66mm[Hg] 120 mm[Hg] 10:59-0400 ([id number]) Diastolic: 60 - 80 mm[Hg] Blood Pressure 160/ (no code) Systolic: 12-22-2018 no n lashonda [facility] 64mm[Hg] 120 mm[Hg] 10:52-0400 ([id number]) Diastolic: 60 - 80 mm[Hg] Blood Pressure 155/ (no code) Systolic: 12-21-2018 no n lashonda [facility] 59mm[Hg] 120 mm[Hg] 10:36-0400 ([id number]) Diastolic: 60 - 80 mm[Hg] Blood Pressure 152/ (no code) Systolic: 12-20-2018 no n lashonda [facility] 66mm[Hg] 120 mm[Hg] 10:23-0400 ([id number]) Diastolic: 60 - 80 mm[Hg] Blood Pressure 140/ (no code) Systolic: 12-19-2018 no n lashonda [facility] 65mm[Hg] 120 mm[Hg] 09:43-0400 ([id number]) Diastolic: 60 - 80 mm[Hg] Blood Pressure 104/ (no code) Systolic: 12-18-2018 no n lashonda [facility] 62mm[Hg] 120 mm[Hg] 11:53-0400 ([id number]) Diastolic: 60 - 80 mm[Hg] Blood Pressure 92/ (no code) Systolic: 12-17-2018 no n lashonda [facility] 59mm[Hg] 120 mm[Hg] 17:05-0400 ([id number]) Diastolic: 60 - 80 mm[Hg] Blood Pressure 102/ (no code) Systolic: 12-17-2018 no n lashonda [facility] 60mm[Hg] 120 mm[Hg] 12:08-0400 ([id number]) Diastolic: 60 - 80 mm[Hg] Blood Pressure 152/ (no code) Systolic: 12-15-2018 no n lash[facility] 61mm[Hg] 120 mm[Hg] 10:190400 ([id number]) Diastolic: 60 - 80 mm[Hg] Blood Pressure 156/ (no code) Systolic: 12-14-2018 no n lashonda [facility] 71mm[Hg] 120 mm[Hg] 12:180400 ([id number]) Diastolic: 60 - 80 mm[Hg] Blood Pressure 180/ (HH) Systolic: 12-14-2018 no na me [facility] 67mm[Hg] 120 mm[Hg] 10:260400 ([id number]) Diastolic: 60 - 80 mm[Hg] Blood Pressure 168/ (H) Systolic: 12-13-2018 no na me [facility] 72mm[Hg] 120 mm[Hg] 10:290400 ([id number]) Diastolic: 60 - 80 mm[Hg] Blood Pressure 134/ (no code) Systolic: 12-12-2018 no n lash[facility] 71mm[Hg] 120 mm[Hg] 10:150400 ([id number]) Diastolic: 60 - 80 mm[Hg] Blood Pressure 134/ (no code) Systolic: 12-11-2018 no n lashonda [facility] 71mm[Hg] 120 mm[Hg] 09:440400 ([id number]) Diastolic: 60 - 80 mm[Hg] Blood Pressure 140/ (no code) Systolic: 12-10-2018 no n lash[facility] 62mm[Hg] 120 mm[Hg] 12:080400 ([id number]) Diastolic: 60 - 80 mm[Hg] Blood Pressure 141/ (no code) Systolic: 12-09-2018 no n lash[facility] 67mm[Hg] 120 mm[Hg] 11:28-0400 ([id number]) Diastolic: 60 - 80 mm[Hg] Blood Pressure 93/ (L) Systolic: 12-08-2018 no na me [facility] 48mm[Hg] 120 mm[Hg] 10:41-0400 ([id number]) Diastolic: 60 - 80 mm[Hg] Blood Pressure 122/ (no code) Systolic: 12-07-2018 no n lash[facility] 91mm[Hg] 120 mm[Hg] 11:290400 ([id number]) Diastolic: 60 - 80 mm[Hg] Blood Pressure 148/ (no code) Systolic: 12-06-2018 no n lash[facility] 63mm[Hg] 120 mm[Hg] 11:0400 ([id number]) Diastolic: 60 - 80 mm[Hg] Blood Pressure 118/ (no code) Systolic: 12-04-2018 no n lash[facility] 67mm[Hg] 120 mm[Hg] 10:290400 ([id number]) Diastolic: 60 - 80 mm[Hg] Blood Pressure 153/ (no code) Systolic: 12-03-2018 no n lashonda [facility] 75mm[Hg] 120 mm[Hg] 12:350400 ([id number]) Diastolic: 60 - 80 mm[Hg] Blood Pressure 153/ (no code) Systolic: 12-03-2018 no n lash[facility] 75mm[Hg] 120 mm[Hg] 10:030400 ([id number]) Diastolic: 60 - 80 mm[Hg] Blood Pressure 155/ (no code) Systolic: 12-02-2018 no n lash[facility] 71mm[Hg] 120 mm[Hg] 11:0400 ([id number]) Diastolic: 60 - 80 mm[Hg] Blood Pressure 155/ (no code) Systolic: 12-01-2018 no n lash[facility] 71mm[Hg] 120 mm[Hg] 11:380400 ([id number]) Diastolic: 60 - 80 mm[Hg] Blood Pressure 159/ (no code) Systolic: 11-30-2018 no n lashonda [facility] 70mm[Hg] 120 mm[Hg] 09:230400 ([id number]) Diastolic: 60 - 80 mm[Hg] Blood Pressure 158/ (no code) Systolic: 11-29-2018 no n lash[facility] 69mm[Hg] 120 mm[Hg] 11:0400 ([id number]) Diastolic: 60 - 80 mm[Hg] Blood Pressure 137/ (no code) Systolic: 11-28-2018 no n lash[facility] 82mm[Hg] 120 mm[Hg] 09:37-0400 ([id number]) Diastolic: 60 - 80 mm[Hg] Blood Pressure 146/ (no code) Systolic: 11-27-2018 no n lash[facility] 60mm[Hg] 120 mm[Hg] 09:52-0400 ([id number]) Diastolic: 60 - 80 mm[Hg] Blood Pressure 145/ (no code) Systolic: 11-26-2018 no n lashonda [facility] 65mm[Hg] 120 mm[Hg] 10:060400 ([id number]) Diastolic: 60 - 80 mm[Hg] Blood Pressure 173/ (HH) Systolic: 11-25-2018 no na me [facility] 79mm[Hg] 120 mm[Hg] 10:250400 ([id number]) Diastolic: 60 - 80 mm[Hg] Blood Pressure 112/ (L) Systolic: 11-24-2018 no na me [facility] 49mm[Hg] 120 mm[Hg] 14:100400 ([id number]) Diastolic: 60 - 80 mm[Hg] Blood Pressure 120/ (no code) Systolic: 11-24-2018 no n lash[facility] 68mm[Hg] 120 mm[Hg] 09:590400 ([id number]) Diastolic: 60 - 80 mm[Hg] Blood Pressure 149/ (no code) Systolic: 11-23-2018 no n lash[facility] 57mm[Hg] 120 mm[Hg] 10:45-0400 ([id number]) Diastolic: 60 - 80 mm[Hg] Blood Pressure 128/ (no code) Systolic: 11-21-2018 no n lash[facility] 92mm[Hg] 120 mm[Hg] 10:48-0400 ([id number]) Diastolic: 60 - 80 mm[Hg] Blood Pressure 140/ (no code) Systolic: 11-20-2018 no n lash[facility] 69mm[Hg] 120 mm[Hg] 10:030400 ([id number]) Diastolic: 60 - 80 mm[Hg] Blood Pressure 132/ (no code) Systolic: 11-19-2018 no n lash[facility] 65mm[Hg] 120 mm[Hg] 11:16-0400 ([id number]) Diastolic: 60 - 80 mm[Hg] Blood Pressure 132/ (no code) Systolic: 11-18-2018 no n lash[facility] 65mm[Hg] 120 mm[Hg] 10:02-0400 ([id number]) Diastolic: 60 - 80 mm[Hg] Blood Pressure 124/ (no code) Systolic: 11-17-2018 no n lash[facility] 55mm[Hg] 120 mm[Hg] 10:040400 ([id number]) Diastolic: 60 - 80 mm[Hg] Blood Pressure 108/ (no code) Systolic: 11-16-2018 no n lashonda [facility] 65mm[Hg] 120 mm[Hg] 14:020400 ([id number]) Diastolic: 60 - 80 mm[Hg] Blood Pressure 151/ (no code) Systolic: 11-15-2018 no n lash[facility] 58mm[Hg] 120 mm[Hg] 17:53-0400 ([id number]) Diastolic: 60 - 80 mm[Hg] Blood Pressure 143/ (no code) Systolic: 11-14-2018 no n lash[facility] 66mm[Hg] 120 mm[Hg] 10:180400 ([id number]) Diastolic: 60 - 80 mm[Hg] Blood Pressure 140/ (no code) Systolic: 11-13-2018 no n lash[facility] 77mm[Hg] 120 mm[Hg] 10:090400 ([id number]) Diastolic: 60 - 80 mm[Hg] Blood Pressure 140/ (no code) Systolic: 11-12-2018 no n lashonda [facility] 77mm[Hg] 120 mm[Hg] 09:27-0400 ([id number]) Diastolic: 60 - 80 mm[Hg] Blood Pressure 133/ (no code) Systolic: 11-11-2018 no n lash[facility] 85mm[Hg] 120 mm[Hg] 10:080400 ([id number]) Diastolic: 60 - 80 mm[Hg] Blood Pressure 131/ (no code) Systolic: 11-10-2018 no n lashonda [facility] 57mm[Hg] 120 mm[Hg] 14:020400 ([id number]) Diastolic: 60 - 80 mm[Hg] Blood Pressure 131/ (no code) Systolic: 11-10-2018 no n lashonda [facility] 57mm[Hg] 120 mm[Hg] 09:17040 ([id number]) Diastolic: 60 - 80 mm[Hg] Blood Pressure 133/ (no code) Systolic: 11-09-2018 no n lash[facility] 69mm[Hg] 120 mm[Hg] 10:590400 ([id number]) Diastolic: 60 - 80 mm[Hg] Blood Pressure 132/ (no code) Systolic: 11-08-2018 no n lash[facility] 66mm[Hg] 120 mm[Hg] 10:330400 ([id number]) Diastolic: 60 - 80 mm[Hg] Blood Pressure 152/ (no code) Systolic: 11-06-2018 no n lash[facility] 74mm[Hg] 120 mm[Hg] 11:040 ([id number]) Diastolic: 60 - 80 mm[Hg] Blood Pressure 172/ (HH) Systolic: 11-06-2018 no na me [facility] 78mm[Hg] 120 mm[Hg] 11:040 ([id number]) Diastolic: 60 - 80 mm[Hg] Blood Pressure 150/ (no code) Systolic: 11-05-2018 no n lash[facility] 74mm[Hg] 120 mm[Hg] 17:040 ([id number]) Diastolic: 60 - 80 mm[Hg] Blood Pressure 174/ (HH) Systolic: 11-05-2018 no na me [facility] 66mm[Hg] 120 mm[Hg] 10:320400 ([id number]) Diastolic: 60 - 80 mm[Hg] Blood Pressure 164/ (H) Systolic: 11-04-2018 no na me [facility] 73mm[Hg] 120 mm[Hg] 10:0400 ([id number]) Diastolic: 60 - 80 mm[Hg] Blood Pressure 160/ (no code) Systolic: 11-03-2018 no n lash[facility] 82mm[Hg] 120 mm[Hg] 10:000400 ([id number]) Diastolic: 60 - 80 mm[Hg] Blood Pressure 157/ (no code) Systolic: 11-01-2018 no n lashonda [facility] 77mm[Hg] 120 mm[Hg] 10:00-0400 ([id number]) Diastolic: 60 - 80 mm[Hg] Blood Pressure 107/ (no code) Systolic: 10-31-2018 no n lash[facility] 73mm[Hg] 120 mm[Hg] 10:00-0400 ([id number]) Diastolic: 60 - 80 mm[Hg] Blood Pressure 118/ (no code) Systolic: 10-29-2018 no n lash[facility] 54mm[Hg] 120 mm[Hg] 10:52-0400 ([id number]) Diastolic: 60 - 80 mm[Hg] Blood Pressure 143/ (no code) Systolic: 10-28-2018 no n lash[facility] 57mm[Hg] 120 mm[Hg] 08:54-0400 ([id number]) Diastolic: 60 - 80 mm[Hg] Blood Pressure 112/ (L) Systolic: 10-27-2018 no na me [facility] 47mm[Hg] 120 mm[Hg] 18:49-0400 ([id number]) Diastolic: 60 - 80 mm[Hg] Blood Pressure 157/ (no code) Systolic: 10-26-2018 no n lash[facility] 77mm[Hg] 120 mm[Hg] 14:47-0400 ([id number]) Diastolic: 60 - 80 mm[Hg] Blood Pressure 176/ (HH) Systolic: 10-26-2018 no na me [facility] 77mm[Hg] 120 mm[Hg] 09:30-0400 ([id number]) Diastolic: 60 - 80 mm[Hg] Blood Pressure 107/ (no code) Systolic: 10-25-2018 no n lash[facility] 73mm[Hg] 120 mm[Hg] 11:05-0400 ([id number]) Diastolic: 60 - 80 mm[Hg] Blood Pressure 153/ (no code) Systolic: 10-24-2018 no n lashonda [facility] 76mm[Hg] 120 mm[Hg] 09:25-0400 ([id number]) Diastolic: 60 - 80 mm[Hg] Blood Pressure 160/ (no code) Systolic: 10-23-2018 no n lashonda [facility] 71mm[Hg] 120 mm[Hg] 10:44-0400 ([id number]) Diastolic: 60 - 80 mm[Hg] Blood Pressure 143/ (no code) Systolic: 10-22-2018 no n lashonda [facility] 76mm[Hg] 120 mm[Hg] 11:200400 ([id number]) Diastolic: 60 - 80 mm[Hg] Blood Pressure 149/ (no code) Systolic: 10-21-2018 no n lashonda [facility] 69mm[Hg] 120 mm[Hg] 10:47-0400 ([id number]) Diastolic: 60 - 80 mm[Hg] Blood Pressure 138/ (HH) Systolic: 10-21-2018 no na me [facility] 102mm[Hg] 120 mm[Hg] 10:42-0400 ([id number]) Diastolic: 60 - 80 mm[Hg] Blood Pressure 139/ (no code) Systolic: 10-20-2018 no n lash[facility] 61mm[Hg] 120 mm[Hg] 10:100400 ([id number]) Diastolic: 60 - 80 mm[Hg] Blood Pressure 107/ (no code) Systolic: 10-19-2018 no n lash[facility] 50mm[Hg] 120 mm[Hg] 14:210400 ([id number]) Diastolic: 60 - 80 mm[Hg] Blood Pressure 172/ (HH,HH) Systolic: 10-19-2018 no na me [facility] 101mm[Hg] 120 mm[Hg] 09:560400 ([id number]) Diastolic: 60 - 80 mm[Hg] Blood Pressure 165/ (H) Systolic: 10-18-2018 no na me [facility] 69mm[Hg] 120 mm[Hg] 11:260400 ([id number]) Diastolic: 60 - 80 mm[Hg] Blood Pressure 142/ (no code) Systolic: 10-17-2018 no n lash[facility] 71mm[Hg] 120 mm[Hg] 10:190400 ([id number]) Diastolic: 60 - 80 mm[Hg] Blood Pressure 170/ (HH) Systolic: 10-16-2018 no na me [facility] 64mm[Hg] 120 mm[Hg] 10:480400 ([id number]) Diastolic: 60 - 80 mm[Hg] Blood Pressure 132/ (H) Systolic: 10-15-2018 no na me [facility] 98mm[Hg] 120 mm[Hg] 10:360400 ([id number]) Diastolic: 60 - 80 mm[Hg] Blood Pressure 148/ (no code) Systolic: 10-14-2018 no n lashonda [facility] 71mm[Hg] 120 mm[Hg] 10:210400 ([id number]) Diastolic: 60 - 80 mm[Hg] Blood Pressure 152/ (no code) Systolic: 10-13-2018 no n lashonda [facility] 64mm[Hg] 120 mm[Hg] 10:240400 ([id number]) Diastolic: 60 - 80 mm[Hg] Blood Pressure 144/ (no code) Systolic: 10-12-2018 no n lash[facility] 60mm[Hg] 120 mm[Hg] 10:040400 ([id number]) Diastolic: 60 - 80 mm[Hg] Blood Pressure 146/ (no code) Systolic: 10-11-2018 no n lashonda [facility] 72mm[Hg] 120 mm[Hg] 10:050400 ([id number]) Diastolic: 60 - 80 mm[Hg] Blood Pressure 152/ (no code) Systolic: 10-10-2018 no n lash[facility] 61mm[Hg] 120 mm[Hg] 10:050400 ([id number]) Diastolic: 60 - 80 mm[Hg] Blood Pressure 157/ (no code) Systolic: 10-09-2018 no n lashonda [facility] 71mm[Hg] 120 mm[Hg] 10:540400 ([id number]) Diastolic: 60 - 80 mm[Hg] Blood Pressure 170/ (HH) Systolic: 10-09-2018 no na me [facility] 67mm[Hg] 120 mm[Hg] 10:520400 ([id number]) Diastolic: 60 - 80 mm[Hg] Blood Pressure 154/ (no code) Systolic: 10-08-2018 no n lash[facility] 73mm[Hg] 120 mm[Hg] 10:260400 ([id number]) Diastolic: 60 - 80 mm[Hg] Blood Pressure 143/ (no code) Systolic: 10-07-2018 no n lash[facility] 75mm[Hg] 120 mm[Hg] 11:080400 ([id number]) Diastolic: 60 - 80 mm[Hg] Blood Pressure 143/ (no code) Systolic: 10-07-2018 no n lashonda [facility] 75mm[Hg] 120 mm[Hg] 09:460400 ([id number]) Diastolic: 60 - 80 mm[Hg] Blood Pressure 148/ (no code) Systolic: 10-05-2018 no n lashonda [facility] 68mm[Hg] 120 mm[Hg] 10:200400 ([id number]) Diastolic: 60 - 80 mm[Hg] Blood Pressure 140/ (no code) Systolic: 10-04-2018 no n lash[facility] 66mm[Hg] 120 mm[Hg] 10:050400 ([id number]) Diastolic: 60 - 80 mm[Hg] Blood Pressure 148/ (no code) Systolic: 10-03-2018 no n lashonda [facility] 70mm[Hg] 120 mm[Hg] 09:570400 ([id number]) Diastolic: 60 - 80 mm[Hg] Blood Pressure 166/ (H) Systolic: 10-02-2018 no na me [facility] 72mm[Hg] 120 mm[Hg] 10:510400 ([id number]) Diastolic: 60 - 80 mm[Hg] Blood Pressure 141/ (no code) Systolic: 10-01-2018 no n lash[facility] 64mm[Hg] 120 mm[Hg] 10:11040 ([id number]) Diastolic: 60 - 80 mm[Hg] Blood Pressure 149/ (no code) Systolic: 09-30-2018 no n lashonda [facility] 69mm[Hg] 120 mm[Hg] 11:170400 ([id number]) Diastolic: 60 - 80 mm[Hg] Blood Pressure 149/ (no code) Systolic: 09-30-2018 no n lashonda [facility] 69mm[Hg] 120 mm[Hg] 09:51-0400 ([id number]) Diastolic: 60 - 80 mm[Hg] Blood Pressure 151/ (no code) Systolic: 09-29-2018 no n lash[facility] 63mm[Hg] 120 mm[Hg] 11:030400 ([id number]) Diastolic: 60 - 80 mm[Hg] Blood Pressure 140/ (no code) Systolic: 09-28-2018 no n lash[facility] 65mm[Hg] 120 mm[Hg] 09:130400 ([id number]) Diastolic: 60 - 80 mm[Hg] Blood Pressure 152/ (no code) Systolic: 09-27-2018 no n lashonda [facility] 69mm[Hg] 120 mm[Hg] 10:370400 ([id number]) Diastolic: 60 - 80 mm[Hg] Blood Pressure 154/ (no code) Systolic: 09-26-2018 no n lashonda [facility] 57mm[Hg] 120 mm[Hg] 09:040400 ([id number]) Diastolic: 60 - 80 mm[Hg] Blood Pressure 157/ (no code) Systolic: 09-25-2018 no n lashonda [facility] 71mm[Hg] 120 mm[Hg] 10:050400 ([id number]) Diastolic: 60 - 80 mm[Hg] Blood Pressure 157/ (no code) Systolic: 09-24-2018 no n lashonda [facility] 77mm[Hg] 120 mm[Hg] 10:210400 ([id number]) Diastolic: 60 - 80 mm[Hg] Blood Pressure 158/ (no code) Systolic: 09-22-2018 no n lashonda [facility] 65mm[Hg] 120 mm[Hg] 12:08040 ([id number]) Diastolic: 60 - 80 mm[Hg] Blood Pressure 139/ (no code) Systolic: 09-21-2018 no n lash[facility] 57mm[Hg] 120 mm[Hg] 10:020400 ([id number]) Diastolic: 60 - 80 mm[Hg] Blood Pressure 93/ (no code) Systolic: 09-20-2018 no n lash[facility] 51mm[Hg] 120 mm[Hg] 11:32-0400 ([id number]) Diastolic: 60 - 80 mm[Hg] Blood Pressure 64/ (LL,L) Systolic: 09-20-2018 no na me [facility] 47mm[Hg] 120 mm[Hg] 11:31-0400 ([id number]) Diastolic: 60 - 80 mm[Hg] Blood Pressure 149/ (no code) Systolic: 09-18-2018 no n lashonda [facility] 75mm[Hg] 120 mm[Hg] 11:16-0400 ([id number]) Diastolic: 60 - 80 mm[Hg] Blood Pressure 149/ (no code) Systolic: 09-18-2018 no n lash[facility] 75mm[Hg] 120 mm[Hg] 09:56-0400 ([id number]) Diastolic: 60 - 80 mm[Hg] Blood Pressure 118/ (no code) Systolic: 09-17-2018 no n lash[facility] 51mm[Hg] 120 mm[Hg] 10:49-0400 ([id number]) Diastolic: 60 - 80 mm[Hg] Blood Pressure 138/ (no code) Systolic: 09-16-2018 no n lashonda [facility] 58mm[Hg] 120 mm[Hg] 10:02-0400 ([id number]) Diastolic: 60 - 80 mm[Hg] Blood Pressure 120/ (no code) Systolic: 09-15-2018 no n lashonda [facility] 69mm[Hg] 120 mm[Hg] 12:44-0400 ([id number]) Diastolic: 60 - 80 mm[Hg] Blood Pressure 120/ (no code) Systolic: 09-15-2018 no n lashonda [facility] 69mm[Hg] 120 mm[Hg] 09:58-0400 ([id number]) Diastolic: 60 - 80 mm[Hg] Blood Pressure 137/ (no code) Systolic: 09-14-2018 no n lash[facility] 58mm[Hg] 120 mm[Hg] 10:29-0400 ([id number]) Diastolic: 60 - 80 mm[Hg] Blood Pressure 128/ (no code) Systolic: 09-13-2018 no n lashonda [facility] 66mm[Hg] 120 mm[Hg] 13:46-0400 ([id number]) Diastolic: 60 - 80 mm[Hg] Blood Pressure 128/ (no code) Systolic: 09-13-2018 no n lash[facility] 66mm[Hg] 120 mm[Hg] 09:560400 ([id number]) Diastolic: 60 - 80 mm[Hg] Blood Pressure 132/ (no code) Systolic: 09-12-2018 no n lash[facility] 91mm[Hg] 120 mm[Hg] 09:040 ([id number]) Diastolic: 60 - 80 mm[Hg] Blood Pressure 139/ (no code) Systolic: 09-11-2018 no n lashonda [facility] 65mm[Hg] 120 mm[Hg] 10:040 ([id number]) Diastolic: 60 - 80 mm[Hg] Blood Pressure 124/ (no code) Systolic: 09-10-2018 no n lash[facility] 64mm[Hg] 120 mm[Hg] 10:040 ([id number]) Diastolic: 60 - 80 mm[Hg] Blood Pressure 129/ (no code) Systolic: 09-09-2018 no n lash[facility] 71mm[Hg] 120 mm[Hg] 10:0400 ([id number]) Diastolic: 60 - 80 mm[Hg] Blood Pressure 148/ (no code) Systolic: 09-08-2018 no n lashonda [facility] 56mm[Hg] 120 mm[Hg] 10:0400 ([id number]) Diastolic: 60 - 80 mm[Hg] Blood Pressure 130/ (no code) Systolic: 09-07-2018 no n lash[facility] 65mm[Hg] 120 mm[Hg] 10:0400 ([id number]) Diastolic: 60 - 80 mm[Hg] Blood Pressure 129/ (no code) Systolic: 2018 no n lashonda [facility] 51mm[Hg] 120 mm[Hg] 11:040 ([id number]) Diastolic: 60 - 80 mm[Hg] Blood Pressure 132/ (no code) Systolic: 09-04-2018 no n lashonda [facility] 65mm[Hg] 120 mm[Hg] 10:0400 ([id number]) Diastolic: 60 - 80 mm[Hg] Blood Pressure 139/ (no code) Systolic: 09-03-2018 no n lashonda [facility] 77mm[Hg] 120 mm[Hg] 12:570400 ([id number]) Diastolic: 60 - 80 mm[Hg] Blood Pressure 158/ (no code) Systolic: 09-02-2018 no n lashonda [facility] 74mm[Hg] 120 mm[Hg] 11:030400 ([id number]) Diastolic: 60 - 80 mm[Hg] Blood Pressure 161/ (H) Systolic: 09-01-2018 no na me [facility] 68mm[Hg] 120 mm[Hg] 10:270400 ([id number]) Diastolic: 60 - 80 mm[Hg] Blood Pressure 148/ (no code) Systolic: 08-30-2018 no n lash[facility] 73mm[Hg] 120 mm[Hg] 10:240400 ([id number]) Diastolic: 60 - 80 mm[Hg] Blood Pressure 115/ (no code) Systolic: 08-28-2018 no n lashonda [facility] 70mm[Hg] 120 mm[Hg] 11:160400 ([id number]) Diastolic: 60 - 80 mm[Hg] Blood Pressure 113/ (no code) Systolic: 08-27-2018 no n lash[facility] 66mm[Hg] 120 mm[Hg] 11:230400 ([id number]) Diastolic: 60 - 80 mm[Hg] Blood Pressure 154/ (no code) Systolic: 08-26-2018 no n lash[facility] 77mm[Hg] 120 mm[Hg] 11:100400 ([id number]) Diastolic: 60 - 80 mm[Hg] Blood Pressure 129/ (no code) Systolic: 08-25-2018 no n lashonda [facility] 65mm[Hg] 120 mm[Hg] 16:440400 ([id number]) Diastolic: 60 - 80 mm[Hg] Blood Pressure 129/ (no code) Systolic: 08-24-2018 no n lashonda [facility] 65mm[Hg] 120 mm[Hg] 10:160400 ([id number]) Diastolic: 60 - 80 mm[Hg] Blood Pressure 138/ (no code) Systolic: 08-23-2018 no n lash[facility] 60mm[Hg] 120 mm[Hg] 16:25-0400 ([id number]) Diastolic: 60 - 80 mm[Hg] Blood Pressure 170/ (HH) Systolic: 08-23-2018 no na me [facility] 67mm[Hg] 120 mm[Hg] 14:41-0400 ([id number]) Diastolic: 60 - 80 mm[Hg] Blood Pressure 170/ (HH) Systolic: 08-23-2018 no na me [facility] 67mm[Hg] 120 mm[Hg] 10:28-0400 ([id number]) Diastolic: 60 - 80 mm[Hg] Blood Pressure 111/ (no code) Systolic: 08-22-2018 no n lashonda [facility] 70mm[Hg] 120 mm[Hg] 09:57-0400 ([id number]) Diastolic: 60 - 80 mm[Hg] Blood Pressure 135/ (no code) Systolic: 08-21-2018 no n lashonda [facility] 70mm[Hg] 120 mm[Hg] 11:030400 ([id number]) Diastolic: 60 - 80 mm[Hg] Blood Pressure 120/ (no code) Systolic: 08-13-2018 no n lashonda [facility] 92mm[Hg] 120 mm[Hg] 11:31-0400 ([id number]) Diastolic: 60 - 80 mm[Hg] Blood Pressure 117/ (no code) Systolic: 08-12-2018 no n lashonda [facility] 65mm[Hg] 120 mm[Hg] 10:220400 ([id number]) Diastolic: 60 - 80 mm[Hg] Blood Pressure 128/ (no code) Systolic: 08-11-2018 no n lash[facility] 55mm[Hg] 120 mm[Hg] 11:020400 ([id number]) Diastolic: 60 - 80 mm[Hg] Blood Pressure 85/ (LL) Systolic: 08-11-2018 no na me [facility] 54mm[Hg] 120 mm[Hg] 11:000400 ([id number]) Diastolic: 60 - 80 mm[Hg] Blood Pressure 152/ (no code) Systolic: 08-10-2018 no n lashonda [facility] 73mm[Hg] 120 mm[Hg] 10:170400 ([id number]) Diastolic: 60 - 80 mm[Hg] Blood Pressure 157/ (no code) Systolic: 08-09-2018 no n lashonda [facility] 73mm[Hg] 120 mm[Hg] 10:160400 ([id number]) Diastolic: 60 - 80 mm[Hg] Blood Pressure 162/ (H) Systolic: 08-08-2018 no na me [facility] 80mm[Hg] 120 mm[Hg] 09:40-0400 ([id number]) Diastolic: 60 - 80 mm[Hg] Blood Pressure 150/ (no code) Systolic: 08-07-2018 no n lashonda [facility] 72mm[Hg] 120 mm[Hg] 09:48-0400 ([id number]) Diastolic: 60 - 80 mm[Hg] Blood Pressure 144/ (no code) Systolic: 08-06-2018 no n lashonda [facility] 75mm[Hg] 120 mm[Hg] 10:340400 ([id number]) Diastolic: 60 - 80 mm[Hg] Blood Pressure 145/ (no code) Systolic: 08-05-2018 no n lash[facility] 76mm[Hg] 120 mm[Hg] 11:030400 ([id number]) Diastolic: 60 - 80 mm[Hg] Blood Pressure 145/ (no code) Systolic: 08-04-2018 no n lashonda [facility] 87mm[Hg] 120 mm[Hg] 10:230400 ([id number]) Diastolic: 60 - 80 mm[Hg] Blood Pressure 154/ (no code) Systolic: 08-03-2018 no n lash[facility] 74mm[Hg] 120 mm[Hg] 10:110400 ([id number]) Diastolic: 60 - 80 mm[Hg] Blood Pressure 148/ (no code) Systolic: 08-02-2018 no n l[facility] 61mm[Hg] 120 mm[Hg] 11:100400 ([id number]) Diastolic: 60 - 80 mm[Hg] Blood Pressure 148/ (no code) Systolic: 08-02-2018 no n lash[facility] 61mm[Hg] 120 mm[Hg] 09:260400 ([id number]) Diastolic: 60 - 80 mm[Hg] Blood Pressure 131/ (no code) Systolic: 08-01-2018 no n lashonda [facility] 54mm[Hg] 120 mm[Hg] 09:320400 ([id number]) Diastolic: 60 - 80 mm[Hg] Blood Pressure 153/ (no code) Systolic: 07-31-2018 no n lashonda [facility] 68mm[Hg] 120 mm[Hg] 15:140400 ([id number]) Diastolic: 60 - 80 mm[Hg] Blood Pressure 153/ (no code) Systolic: 07-31-2018 no n lash[facility] 68mm[Hg] 120 mm[Hg] 10:040400 ([id number]) Diastolic: 60 - 80 mm[Hg] Blood Pressure 162/ (H) Systolic: 07-30-2018 no na me [facility] 67mm[Hg] 120 mm[Hg] 10:570400 ([id number]) Diastolic: 60 - 80 mm[Hg] Blood Pressure 177/ (HH) Systolic: 07-30-2018 no na me [facility] 64mm[Hg] 120 mm[Hg] 10:530400 ([id number]) Diastolic: 60 - 80 mm[Hg] Blood Pressure 105/ (no code) Systolic: 07-29-2018 no n l[facility] 56mm[Hg] 120 mm[Hg] 14:0400 ([id number]) Diastolic: 60 - 80 mm[Hg] Blood Pressure 105/ (no code) Systolic: 07-29-2018 no n l[facility] 56mm[Hg] 120 mm[Hg] 09:290400 ([id number]) Diastolic: 60 - 80 mm[Hg] Blood Pressure 132/ (no code) Systolic: 07-28-2018 no n l[facility] 64mm[Hg] 120 mm[Hg] 10:090400 ([id number]) Diastolic: 60 - 80 mm[Hg] Blood Pressure 144/ (no code) Systolic: 07-27-2018 no n [facility] 67mm[Hg] 120 mm[Hg] 10:35-0400 ([id number]) Diastolic: 60 - 80 mm[Hg] Blood Pressure 160/ (H) Systolic: 07-26-2018 no na me [facility] 79mm[Hg] 120 mm[Hg] 10:35-0400 ([id number]) Diastolic: 60 - 80 mm[Hg] Blood Pressure 130/ (no code) Systolic: 07-24-2018 no n [facility] 65mm[Hg] 120 mm[Hg] 13:47-0400 ([id number]) Diastolic: 60 - 80 mm[Hg] Blood Pressure 161/ (H) Systolic: 07-24-2018 no na me [facility] 58mm[Hg] 120 mm[Hg] 10:57-0400 ([id number]) Diastolic: 60 - 80 mm[Hg] Blood Pressure 178/ (HH) Systolic: 07-24-2018 no na me [facility] 73mm[Hg] 120 mm[Hg] 10:53-0400 ([id number]) Diastolic: 60 - 80 mm[Hg] Blood Pressure 147/ (no code) Systolic: 07-23-2018 no n [facility] 66mm[Hg] 120 mm[Hg] 10:51-0400 ([id number]) Diastolic: 60 - 80 mm[Hg] Blood Pressure 114/ (no code) Systolic: 07-22-2018 no n [facility] 70mm[Hg] 120 mm[Hg] 11:040400 ([id number]) Diastolic: 60 - 80 mm[Hg] Blood Pressure 123/ (no code) Systolic: 07-21-2018 no n [facility] 63mm[Hg] 120 mm[Hg] 11:340400 ([id number]) Diastolic: 60 - 80 mm[Hg] Blood Pressure 145/ (no code) Systolic: 07-20-2018 no n [facility] 60mm[Hg] 120 mm[Hg] 14:030400 ([id number]) Diastolic: 60 - 80 mm[Hg] Blood Pressure 145/ (no code) Systolic: 07-20-2018 no n [facility] 60mm[Hg] 120 mm[Hg] 09:55-0400 ([id number]) Diastolic: 60 - 80 mm[Hg] Blood Pressure 158/ (no code) Systolic: 07-19-2018 no n [facility] 62mm[Hg] 120 mm[Hg] 14:21-0400 ([id number]) Diastolic: 60 - 80 mm[Hg] Blood Pressure 158/ (no code) Systolic: 07-19-2018 no n [facility] 62mm[Hg] 120 mm[Hg] 09:49-0400 ([id number]) Diastolic: 60 - 80 mm[Hg] Blood Pressure 156/ (no code) Systolic: 07-18-2018 no n [facility] 66mm[Hg] 120 mm[Hg] 09:100400 ([id number]) Diastolic: 60 - 80 mm[Hg] Blood Pressure 155/ (no code) Systolic: 07-17-2018 no n [facility] 72mm[Hg] 120 mm[Hg] 10:36-0400 ([id number]) Diastolic: 60 - 80 mm[Hg] Blood Pressure 123/ (no code) Systolic: 07-16-2018 no n [facility] 70mm[Hg] 120 mm[Hg] 10:19-0400 ([id number]) Diastolic: 60 - 80 mm[Hg] Blood Pressure 160/ (H) Systolic: 07-15-2018 no na me [facility] 85mm[Hg] 120 mm[Hg] 10:25-0400 ([id number]) Diastolic: 60 - 80 mm[Hg] Blood Pressure 129/ (no code) Systolic: 07-14-2018 no n lashonda [facility] 67mm[Hg] 120 mm[Hg] 16:42-0400 ([id number]) Diastolic: 60 - 80 mm[Hg] Blood Pressure 122/ (no code) Systolic: 07-13-2018 no n lashonda [facility] 64mm[Hg] 120 mm[Hg] 11:40-0400 ([id number]) Diastolic: 60 - 80 mm[Hg] Blood Pressure 115/ (no code) Systolic: 07-12-2018 no n lashonda [facility] 64mm[Hg] 120 mm[Hg] 13:40-0400 ([id number]) Diastolic: 60 - 80 mm[Hg] Blood Pressure 90/ (L,L) Systolic: 07-10-2018 no na me [facility] 48mm[Hg] 120 mm[Hg] 10:43-0400 ([id number]) Diastolic: 60 - 80 mm[Hg] Blood Pressure 123/ (no code) Systolic: 07-09-2018 no n lashonda [facility] 70mm[Hg] 120 mm[Hg] 11:41-0400 ([id number]) Diastolic: 60 - 80 mm[Hg] Blood Pressure 118/ (no code) Systolic: 07-08-2018 no n lashonda [facility] 70mm[Hg] 120 mm[Hg] 11:42-0400 ([id number]) Diastolic: 60 - 80 mm[Hg] Blood Pressure 130/ (no code) Systolic: 07-07-2018 no n lashonda [facility] 70mm[Hg] 120 mm[Hg] 17:020400 ([id number]) Diastolic: 60 - 80 mm[Hg] Blood Pressure 168/ (H) Systolic: 07-04-2018 no na me [facility] 81mm[Hg] 120 mm[Hg] 16:130400 ([id number]) Diastolic: 60 - 80 mm[Hg] Blood Pressure 168/ (H) Systolic: 07-03-2018 no na me [facility] 81mm[Hg] 120 mm[Hg] 10:090400 ([id number]) Diastolic: 60 - 80 mm[Hg] Blood Pressure 157/ (no code) Systolic: 07-02-2018 no n lashonda [facility] 75mm[Hg] 120 mm[Hg] 11:200400 ([id number]) Diastolic: 60 - 80 mm[Hg] Blood Pressure 155/ (no code) Systolic: 07-01-2018 no n lashonda [facility] 72mm[Hg] 120 mm[Hg] 10:130400 ([id number]) Diastolic: 60 - 80 mm[Hg] Blood Pressure 160/ (H) Systolic: 06-30-2018 no na me [facility] 73mm[Hg] 120 mm[Hg] 10:36-0400 ([id number]) Diastolic: 60 - 80 mm[Hg] Blood Pressure 162/ (H) Systolic: 06-29-2018 no na me [facility] 69mm[Hg] 120 mm[Hg] 11: ([id number]) Diastolic: 60 - 80 mm[Hg] Blood Pressure 157/ (no code) Systolic: 06-28-2018 no n lashonda [facility] 69mm[Hg] 120 mm[Hg] 10:370400 ([id number]) Diastolic: 60 - 80 mm[Hg] Blood Pressure 149/ (no code) Systolic: 06-27-2018 no n lashonda [facility] 59mm[Hg] 120 mm[Hg] 10:040 ([id number]) Diastolic: 60 - 80 mm[Hg] Blood Pressure 133/ (no code) Systolic: 06-26-2018 no n lashonda [facility] 67mm[Hg] 120 mm[Hg] 10:270400 ([id number]) Diastolic: 60 - 80 mm[Hg] Blood Pressure 163/ (H) Systolic: 06-25-2018 no na me [facility] 75mm[Hg] 120 mm[Hg] 10:210400 ([id number]) Diastolic: 60 - 80 mm[Hg] Blood Pressure 136/ (no code) Systolic: 06-24-2018 no n lashonda [facility] 72mm[Hg] 120 mm[Hg] 11:040 ([id number]) Diastolic: 60 - 80 mm[Hg] Blood Pressure 164/ (H) Systolic: 06-23-2018 no na me [facility] 67mm[Hg] 120 mm[Hg] 10:420400 ([id number]) Diastolic: 60 - 80 mm[Hg] Blood Pressure 153/ (no code) Systolic: 06-22-2018 no n lashonda [facility] 71mm[Hg] 120 mm[Hg] 15:350400 ([id number]) Diastolic: 60 - 80 mm[Hg] Blood Pressure 164/ (H,HH) Systolic: 06-22-2018 no na me [facility] 105mm[Hg] 120 mm[Hg] 10:340400 ([id number]) Diastolic: 60 - 80 mm[Hg] Blood Pressure 119/ (no code) Systolic: 06-21-2018 no n lashonda [facility] 68mm[Hg] 120 mm[Hg] 12:47-0400 ([id number]) Diastolic: 60 - 80 mm[Hg] Blood Pressure 159/ (no code) Systolic: 06-20-2018 no n lashonda [facility] 72mm[Hg] 120 mm[Hg] 09:29-0400 ([id number]) Diastolic: 60 - 80 mm[Hg] Blood Pressure 158/ (no code) Systolic: 06-19-2018 no n lashonda [facility] 86mm[Hg] 120 mm[Hg] 10:43-0400 ([id number]) Diastolic: 60 - 80 mm[Hg] Blood Pressure 165/ (H) Systolic: 06-18-2018 no na me [facility] 79mm[Hg] 120 mm[Hg] 11:21-0400 ([id number]) Diastolic: 60 - 80 mm[Hg] Blood Pressure 118/ (no code) Systolic: 06-17-2018 no n lashonda [facility] 64mm[Hg] 120 mm[Hg] 09:450400 ([id number]) Diastolic: 60 - 80 mm[Hg] Blood Pressure 135/ (no code) Systolic: 06-16-2018 no n lashonda [facility] 72mm[Hg] 120 mm[Hg] 10:120400 ([id number]) Diastolic: 60 - 80 mm[Hg] Blood Pressure 144/ (no code) Systolic: 06-15-2018 no n lashonda [facility] 71mm[Hg] 120 mm[Hg] 14:43-0400 ([id number]) Diastolic: 60 - 80 mm[Hg] Blood Pressure 144/ (no code) Systolic: 06-15-2018 no n lashonda [facility] 71mm[Hg] 120 mm[Hg] 09:40-0400 ([id number]) Diastolic: 60 - 80 mm[Hg] Blood Pressure 153/ (no code) Systolic: 06-14-2018 no n lashonda [facility] 70mm[Hg] 120 mm[Hg] 10:40-0400 ([id number]) Diastolic: 60 - 80 mm[Hg] Blood Pressure 137/ (no code) Systolic: 06-13-2018 no n lashonda [facility] 81mm[Hg] 120 mm[Hg] 09:54-0400 ([id number]) Diastolic: 60 - 80 mm[Hg] Blood Pressure 139/ (no code) Systolic: 06-12-2018 no n lashonda [facility] 64mm[Hg] 120 mm[Hg] 10:13-0400 ([id number]) Diastolic: 60 - 80 mm[Hg] Blood Pressure 124/ (H) Systolic: 06-11-2018 no na me [facility] 96mm[Hg] 120 mm[Hg] 11:20-0400 ([id number]) Diastolic: 60 - 80 mm[Hg] Blood Pressure 133/ (no code) Systolic: 06-10-2018 no n lash[facility] 71mm[Hg] 120 mm[Hg] 10:17-0400 ([id number]) Diastolic: 60 - 80 mm[Hg] Blood Pressure 153/ (no code) Systolic: 06-09-2018 no n lashonda [facility] 75mm[Hg] 120 mm[Hg] 12:41-0400 ([id number]) Diastolic: 60 - 80 mm[Hg] Blood Pressure 173/ (HH) Systolic: 06-09-2018 no na me [facility] 72mm[Hg] 120 mm[Hg] 12:40-0400 ([id number]) Diastolic: 60 - 80 mm[Hg] Blood Pressure 123/ (no code) Systolic: 06-08-2018 no n lashonda [facility] 67mm[Hg] 120 mm[Hg] 16:50-0400 ([id number]) Diastolic: 60 - 80 mm[Hg] Blood Pressure 139/ (no code) Systolic: 06-07-2018 no n lashonda [facility] 69mm[Hg] 120 mm[Hg] 13:38-0400 ([id number]) Diastolic: 60 - 80 mm[Hg] Blood Pressure 136/ (no code) Systolic: 06-05-2018 no n lashonda [facility] 70mm[Hg] 120 mm[Hg] 11:32-0400 ([id number]) Diastolic: 60 - 80 mm[Hg] Blood Pressure 128/ (no code) Systolic: 06-04-2018 no n lashonda [facility] 72mm[Hg] 120 mm[Hg] 12:06-0400 ([id number]) Diastolic: 60 - 80 mm[Hg] Blood Pressure 134/ (HH) Systolic: 06-04-2018 no na me [facility] 118mm[Hg] 120 mm[Hg] 12:040400 ([id number]) Diastolic: 60 - 80 mm[Hg] Blood Pressure 111/ (no code) Systolic: 06-03-2018 no n lashonda [facility] 55mm[Hg] 120 mm[Hg] 11:43-0400 ([id number]) Diastolic: 60 - 80 mm[Hg] Blood Pressure 111/ (no code) Systolic: 06-03-2018 no n lashonda [facility] 55mm[Hg] 120 mm[Hg] 10:29-0400 ([id number]) Diastolic: 60 - 80 mm[Hg] Blood Pressure 164/ (H) Systolic: 06-02-2018 no na me [facility] 77mm[Hg] 120 mm[Hg] 10:51-0400 ([id number]) Diastolic: 60 - 80 mm[Hg] Blood Pressure 160/ (H) Systolic: 06-01-2018 no na me [facility] 58mm[Hg] 120 mm[Hg] 15:080400 ([id number]) Diastolic: 60 - 80 mm[Hg] Blood Pressure 160/ (H) Systolic: 05-31-2018 no na me [facility] 58mm[Hg] 120 mm[Hg] 14:32-0400 ([id number]) Diastolic: 60 - 80 mm[Hg] Blood Pressure 160/ (H) Systolic: 05-30-2018 no na me [facility] 88mm[Hg] 120 mm[Hg] 10:03-0400 ([id number]) Diastolic: 60 - 80 mm[Hg] Blood Pressure 113/ (no code) Systolic: 05-29-2018 no n lashonda [facility] 72mm[Hg] 120 mm[Hg] 11:46-0500 ([id number]) Diastolic: 60 - 80 mm[Hg] Blood Pressure 100/ (no code) Systolic: 05-28-2018 no n lashonda [facility] 83mm[Hg] 120 mm[Hg] 10:53-0500 ([id number]) Diastolic: 60 - 80 mm[Hg] Blood Pressure 169/ (H) Systolic: 05-27-2018 no na me [facility] 89mm[Hg] 120 mm[Hg] 09:230500 ([id number]) Diastolic: 60 - 80 mm[Hg] Blood Pressure 103/ (no code) Systolic: 05-26-2018 no n lashonda [facility] 57mm[Hg] 120 mm[Hg] 10:35-0500 ([id number]) Diastolic: 60 - 80 mm[Hg] Blood Pressure 180/ (HH) Systolic: 05-26-2018 no na me [facility] 85mm[Hg] 120 mm[Hg] 10:33-0500 ([id number]) Diastolic: 60 - 80 mm[Hg] Blood Pressure 180/ (HH) Systolic: 05-26-2018 no na me [facility] 85mm[Hg] 120 mm[Hg] 09:130500 ([id number]) Diastolic: 60 - 80 mm[Hg] Blood Pressure 154/ (no code) Systolic: 05-24-2018 no n lashonda [facility] 73mm[Hg] 120 mm[Hg] 10:200500 ([id number]) Diastolic: 60 - 80 mm[Hg] Blood Pressure 141/ (no code) Systolic: 05-22-2018 no n lashonda [facility] 73mm[Hg] 120 mm[Hg] 10:260500 ([id number]) Diastolic: 60 - 80 mm[Hg] Blood Pressure 184/ (HH) Systolic: 05-22-2018 no na me [facility] 81mm[Hg] 120 mm[Hg] 10:230500 ([id number]) Diastolic: 60 - 80 mm[Hg] Blood Pressure 130/ (no code) Systolic: 05-21-2018 no n lashonda [facility] 56mm[Hg] 120 mm[Hg] 16:40-0500 ([id number]) Diastolic: 60 - 80 mm[Hg] Blood Pressure 164/ (H) Systolic: 05-19-2018 no na me [facility] 85mm[Hg] 120 mm[Hg] 10:33-0500 ([id number]) Diastolic: 60 - 80 mm[Hg] Blood Pressure 175/ (HH) Systolic: 05-19-2018 no na me [facility] 70mm[Hg] 120 mm[Hg] 10:32-0500 ([id number]) Diastolic: 60 - 80 mm[Hg] Blood Pressure 162/ (H) Systolic: 05-18-2018 no na me [facility] 79mm[Hg] 120 mm[Hg] 10:47-0500 ([id number]) Diastolic: 60 - 80 mm[Hg] Blood Pressure 146/ (H) Systolic: 05-17-2018 no na me [facility] 96mm[Hg] 120 mm[Hg] 11:50-0500 ([id number]) Diastolic: 60 - 80 mm[Hg] Blood Pressure 123/ (no code) Systolic: 05-15-2018 no n lashonda [facility] 63mm[Hg] 120 mm[Hg] 16:35-0500 ([id number]) Diastolic: 60 - 80 mm[Hg] Blood Pressure 133/ (no code) Systolic: 05-14-2018 no n lashonda [facility] 64mm[Hg] 120 mm[Hg] 10:36-0500 ([id number]) Diastolic: 60 - 80 mm[Hg] Blood Pressure 146/ (no code) Systolic: 05-12-2018 no n lashonda [facility] 68mm[Hg] 120 mm[Hg] 10:16-0500 ([id number]) Diastolic: 60 - 80 mm[Hg] Blood Pressure 127/ (no code) Systolic: 05-11-2018 no n lashonda [facility] 64mm[Hg] 120 mm[Hg] 14:04-0500 ([id number]) Diastolic: 60 - 80 mm[Hg] Blood Pressure 127/ (no code) Systolic: 05-10-2018 no n lashonda [facility] 64mm[Hg] 120 mm[Hg] 14:02-0500 ([id number]) Diastolic: 60 - 80 mm[Hg] Blood Pressure 152/ (no code) Systolic: 05-09-2018 no n lashonda [facility] 75mm[Hg] 120 mm[Hg] 09:48-0500 ([id number]) Diastolic: 60 - 80 mm[Hg] Blood Pressure 138/ (no code) Systolic: 05-08-2018 no n lashonda [facility] 64mm[Hg] 120 mm[Hg] 10:31-0500 ([id number]) Diastolic: 60 - 80 mm[Hg] Blood Pressure 160/ (H) Systolic: 05-07-2018 no na me [facility] 74mm[Hg] 120 mm[Hg] 11:41-0500 ([id number]) Diastolic: 60 - 80 mm[Hg] Blood Pressure 163/ (H) Systolic: 05-06-2018 no na me [facility] 84mm[Hg] 120 mm[Hg] 10:40-0500 ([id number]) Diastolic: 60 - 80 mm[Hg] Blood Pressure 152/ (no code) Systolic: 05-05-2018 no n lashonda [facility] 77mm[Hg] 120 mm[Hg] 10:44-0500 ([id number]) Diastolic: 60 - 80 mm[Hg] Blood Pressure 143/ (no code) Systolic: 05-04-2018 no n lashonda [facility] 63mm[Hg] 120 mm[Hg] 14:01-0500 ([id number]) Diastolic: 60 - 80 mm[Hg] Blood Pressure 172/ (HH) Systolic: 05-03-2018 no na me [facility] 77mm[Hg] 120 mm[Hg] 13:53-0500 ([id number]) Diastolic: 60 - 80 mm[Hg] Blood Pressure 172/ (HH) Systolic: 05-03-2018 no na me [facility] 77mm[Hg] 120 mm[Hg] 10:51-0500 ([id number]) Diastolic: 60 - 80 mm[Hg] Blood Pressure 171/ (HH) Systolic: 05-03-2018 no na me [facility] 85mm[Hg] 120 mm[Hg] 10:49-0500 ([id number]) Diastolic: 60 - 80 mm[Hg] Blood Pressure 172/ (HH,HH) Systolic: 05-02-2018 no na me [facility] 103mm[Hg] 120 mm[Hg] 09:21-0500 ([id number]) Diastolic: 60 - 80 mm[Hg] Blood Pressure 157/ (no code) Systolic: 05-01-2018 no n lashonda [facility] 83mm[Hg] 120 mm[Hg] 12:20-0500 ([id number]) Diastolic: 60 - 80 mm[Hg] Blood Pressure 157/ (no code) Systolic: 05-01-2018 no n lashonda [facility] 83mm[Hg] 120 mm[Hg] 09:57-0500 ([id number]) Diastolic: 60 - 80 mm[Hg] Blood Pressure 124/ (no code) Systolic: 04-29-2018 no n lashonda [facility] 74mm[Hg] 120 mm[Hg] 11:09-0500 ([id number]) Diastolic: 60 - 80 mm[Hg] Blood Pressure 167/ (H,HH) Systolic: 04-28-2018 no na me [facility] 100mm[Hg] 120 mm[Hg] 10:46-0500 ([id number]) Diastolic: 60 - 80 mm[Hg] Blood Pressure 109/ (no code) Systolic: 04-27-2018 no n lashonda [facility] 58mm[Hg] 120 mm[Hg] 13:55-0500 ([id number]) Diastolic: 60 - 80 mm[Hg] Blood Pressure 166/ (H) Systolic: 04-27-2018 no na me [facility] 78mm[Hg] 120 mm[Hg] 09:30-0500 ([id number]) Diastolic: 60 - 80 mm[Hg] Blood Pressure 146/ (no code) Systolic: 04-26-2018 no n lashonda [facility] 77mm[Hg] 120 mm[Hg] 12:58-0500 ([id number]) Diastolic: 60 - 80 mm[Hg] Blood Pressure 146/ (no code) Systolic: 04-26-2018 no n lashonda [facility] 77mm[Hg] 120 mm[Hg] 10:00-0500 ([id number]) Diastolic: 60 - 80 mm[Hg] Blood Pressure 152/ (no code) Systolic: 04-24-2018 no n lashonda [facility] 74mm[Hg] 120 mm[Hg] 10:21-0500 ([id number]) Diastolic: 60 - 80 mm[Hg] Blood Pressure 124/ (H) Systolic: 04-23-2018 no na me [facility] 96mm[Hg] 120 mm[Hg] 10:39-0500 ([id number]) Diastolic: 60 - 80 mm[Hg] Blood Pressure 136/ (HH) Systolic: 04-23-2018 no na me [facility] 104mm[Hg] 120 mm[Hg] 10:38-0500 ([id number]) Diastolic: 60 - 80 mm[Hg] Blood Pressure 89/ (L,L) Systolic: 04-22-2018 no na me [facility] 44mm[Hg] 120 mm[Hg] 12:19-0500 ([id number]) Diastolic: 60 - 80 mm[Hg] Blood Pressure 103/ (no code) Systolic: 04-21-2018 no n lashonda [facility] 58mm[Hg] 120 mm[Hg] 13:090500 ([id number]) Diastolic: 60 - 80 mm[Hg] Blood Pressure 103/ (no code) Systolic: 04-20-2018 no n lashonda [facility] 58mm[Hg] 120 mm[Hg] 11:16-0500 ([id number]) Diastolic: 60 - 80 mm[Hg] Blood Pressure 128/ (no code) Systolic: 04-19-2018 no n lashonda [facility] 70mm[Hg] 120 mm[Hg] 10:25-0500 ([id number]) Diastolic: 60 - 80 mm[Hg] Blood Pressure 141/ (no code) Systolic: 04-18-2018 no n lashonda [facility] 76mm[Hg] 120 mm[Hg] 09:55-0500 ([id number]) Diastolic: 60 - 80 mm[Hg] Blood Pressure 154/ (no code) Systolic: 04-17-2018 no n lashonda [facility] 74mm[Hg] 120 mm[Hg] 10:18-0500 ([id number]) Diastolic: 60 - 80 mm[Hg] Blood Pressure 166/ (H) Systolic: 04-16-2018 no na me [facility] 71mm[Hg] 120 mm[Hg] 09:27-0500 ([id number]) Diastolic: 60 - 80 mm[Hg] Blood Pressure 108/ (L) Systolic: 04-15-2018 no na me [facility] 40mm[Hg] 120 mm[Hg] 12:310500 ([id number]) Diastolic: 60 - 80 mm[Hg] Blood Pressure 170/ (HH) Systolic: 04-15-2018 no na me [facility] 74mm[Hg] 120 mm[Hg] 09:57-0500 ([id number]) Diastolic: 60 - 80 mm[Hg] Blood Pressure 140/ (no code) Systolic: 04-14-2018 no n lashonda [facility] 78mm[Hg] 120 mm[Hg] 10:41-0500 ([id number]) Diastolic: 60 - 80 mm[Hg] Blood Pressure 162/ (H) Systolic: 04-13-2018 no na me [facility] 67mm[Hg] 120 mm[Hg] 10:30-0500 ([id number]) Diastolic: 60 - 80 mm[Hg] Blood Pressure 145/ (no code) Systolic: 04-12-2018 no n lashonda [facility] 74mm[Hg] 120 mm[Hg] 17:53-0500 ([id number]) Diastolic: 60 - 80 mm[Hg] Blood Pressure 160/ (H) Systolic: 04-10-2018 no na me [facility] 81mm[Hg] 120 mm[Hg] 10:17-0500 ([id number]) Diastolic: 60 - 80 mm[Hg] Blood Pressure 147/ (no code) Systolic: 04-09-2018 no n lashonda [facility] 67mm[Hg] 120 mm[Hg] 15:10-0500 ([id number]) Diastolic: 60 - 80 mm[Hg] Blood Pressure 142/ (no code) Systolic: 04-08-2018 no n lashonda [facility] 61mm[Hg] 120 mm[Hg] 10:08-0500 ([id number]) Diastolic: 60 - 80 mm[Hg] Blood Pressure 148/ (HH) Systolic: 04-08-2018 no na me [facility] 134mm[Hg] 120 mm[Hg] 10:04-0500 ([id number]) Diastolic: 60 - 80 mm[Hg] Blood Pressure 127/ (no code) Systolic: 04-07-2018 no n lashonda [facility] 57mm[Hg] 120 mm[Hg] 10:49-0500 ([id number]) Diastolic: 60 - 80 mm[Hg] Blood Pressure 153/ (no code) Systolic: 04-05-2018 no n lashonda [facility] 61mm[Hg] 120 mm[Hg] 10:22-0500 ([id number]) Diastolic: 60 - 80 mm[Hg] Blood Pressure 162/ (H) Systolic: 04-04-2018 no na me [facility] 72mm[Hg] 120 mm[Hg] 09:54-0500 ([id number]) Diastolic: 60 - 80 mm[Hg] Blood Pressure 108/ (L) Systolic: 04-03-2018 no na me [facility] 48mm[Hg] 120 mm[Hg] 11:20-0500 ([id number]) Diastolic: 60 - 80 mm[Hg] Blood Pressure 148/ (no code) Systolic: 04-02-2018 no n lashonda [facility] 69mm[Hg] 120 mm[Hg] 11:23-0500 ([id number]) Diastolic: 60 - 80 mm[Hg] Blood Pressure 164/ (H) Systolic: 03-31-2018 no na me [facility] 78mm[Hg] 120 mm[Hg] 09:23-0500 ([id number]) Diastolic: 60 - 80 mm[Hg] Blood Pressure 129/ (no code) Systolic: 03-30-2018 no n lashonda [facility] 60mm[Hg] 120 mm[Hg] 13:55-0500 ([id number]) Diastolic: 60 - 80 mm[Hg] Blood Pressure 153/ (no code) Systolic: 03-29-2018 no n lashonda [facility] 54mm[Hg] 120 mm[Hg] 14:39-0500 ([id number]) Diastolic: 60 - 80 mm[Hg] Blood Pressure 153/ (no code) Systolic: 03-27-2018 no n lashonda [facility] 54mm[Hg] 120 mm[Hg] 10:19-0500 ([id number]) Diastolic: 60 - 80 mm[Hg] Blood Pressure 156/ (no code) Systolic: 03-26-2018 no n lashonda [facility] 78mm[Hg] 120 mm[Hg] 09:52-0500 ([id number]) Diastolic: 60 - 80 mm[Hg] Blood Pressure 123/ (no code) Systolic: 03-25-2018 no n lashonda [facility] 62mm[Hg] 120 mm[Hg] 10:23-0500 ([id number]) Diastolic: 60 - 80 mm[Hg] Blood Pressure 111/ (no code) Systolic: 03-24-2018 no n lashonda [facility] 74mm[Hg] 120 mm[Hg] 17:17-0500 ([id number]) Diastolic: 60 - 80 mm[Hg] Blood Pressure 126/ (no code) Systolic: 03-20-2018 no n lashonda [facility] 57mm[Hg] 120 mm[Hg] 09:41-0500 ([id number]) Diastolic: 60 - 80 mm[Hg] Blood Pressure 126/ (no code) Systolic: 03-19-2018 no n lashonda [facility] 57mm[Hg] 120 mm[Hg] 09:44-0500 ([id number]) Diastolic: 60 - 80 mm[Hg] Blood Pressure 162/ (H) Systolic: 03-18-2018 no na me [facility] 60mm[Hg] 120 mm[Hg] 09:57-0500 ([id number]) Diastolic: 60 - 80 mm[Hg] Blood Pressure 120/ (no code) Systolic: 03-17-2018 no n lashonda [facility] 57mm[Hg] 120 mm[Hg] 09:41-0500 ([id number]) Diastolic: 60 - 80 mm[Hg] Blood Pressure 146/ (no code) Systolic: 03-16-2018 no n lashonda [facility] 66mm[Hg] 120 mm[Hg] 09:59-0500 ([id number]) Diastolic: 60 - 80 mm[Hg] Blood Pressure 128/ (no code) Systolic: 03-15-2018 no n lashonda [facility] 56mm[Hg] 120 mm[Hg] 10:02-0500 ([id number]) Diastolic: 60 - 80 mm[Hg] Blood Pressure 139/ (no code) Systolic: 03-14-2018 no n lashonda [facility] 59mm[Hg] 120 mm[Hg] 09:10-0500 ([id number]) Diastolic: 60 - 80 mm[Hg] Blood Pressure 119/ (no code) Systolic: 03-13-2018 no n lashonda [facility] 56mm[Hg] 120 mm[Hg] 09:44-0500 ([id number]) Diastolic: 60 - 80 mm[Hg] Blood Pressure 126/ (no code) Systolic: 03-12-2018 no n lashonda [facility] 65mm[Hg] 120 mm[Hg] 12:47-0500 ([id number]) Diastolic: 60 - 80 mm[Hg] Blood Pressure 145/ (HH) Systolic: 03-12-2018 no na me [facility] 102mm[Hg] 120 mm[Hg] 12:45-0500 ([id number]) Diastolic: 60 - 80 mm[Hg] Blood Pressure 145/ (HH) Systolic: 03-12-2018 no na me [facility] 102mm[Hg] 120 mm[Hg] 08:23-0500 ([id number]) Diastolic: 60 - 80 mm[Hg] Blood Pressure 144/ (no code) Systolic: 03-11-2018 no n lashonda [facility] 74mm[Hg] 120 mm[Hg] 09:20-0500 ([id number]) Diastolic: 60 - 80 mm[Hg] Blood Pressure 123/ (no code) Systolic: 03-10-2018 no n lashonda [facility] 59mm[Hg] 120 mm[Hg] 11:24-0500 ([id number]) Diastolic: 60 - 80 mm[Hg] Blood Pressure 123/ (no code) Systolic: 03-10-2018 no n lashonda [facility] 59mm[Hg] 120 mm[Hg] 09:32-0500 ([id number]) Diastolic: 60 - 80 mm[Hg] Blood Pressure 103/ (no code) Systolic: 03-09-2018 no n lashonda [facility] 71mm[Hg] 120 mm[Hg] 14:19-0500 ([id number]) Diastolic: 60 - 80 mm[Hg] Blood Pressure 103/ (no code) Systolic: 03-09-2018 no n lashonda [facility] 71mm[Hg] 120 mm[Hg] 08:54-0500 ([id number]) Diastolic: 60 - 80 mm[Hg] Blood Pressure 143/ (no code) Systolic: 03-08-2018 no n lashonda [facility] 64mm[Hg] 120 mm[Hg] 13:45-0500 ([id number]) Diastolic: 60 - 80 mm[Hg] Blood Pressure 143/ (no code) Systolic: 03-08-2018 no n lashonda [facility] 64mm[Hg] 120 mm[Hg] 09:00-0500 ([id number]) Diastolic: 60 - 80 mm[Hg] Blood Pressure 143/ (no code) Systolic: 03-07-2018 no n lashonda [facility] 64mm[Hg] 120 mm[Hg] 08:52-0500 ([id number]) Diastolic: 60 - 80 mm[Hg] Blood Pressure 168/ (H) Systolic: 03-06-2018 no na me [facility] 81mm[Hg] 120 mm[Hg] 13:01-0500 ([id number]) Diastolic: 60 - 80 mm[Hg] Blood Pressure 168/ (H) Systolic: 03-06-2018 no na me [facility] 81mm[Hg] 120 mm[Hg] 09:49-0500 ([id number]) Diastolic: 60 - 80 mm[Hg] Blood Pressure 146/ (no code) Systolic: 03-05-2018 no n lashonda [facility] 69mm[Hg] 120 mm[Hg] 13:02-0500 ([id number]) Diastolic: 60 - 80 mm[Hg] Blood Pressure 146/ (no code) Systolic: 03-05-2018 no n lashonda [facility] 69mm[Hg] 120 mm[Hg] 09:54-0500 ([id number]) Diastolic: 60 - 80 mm[Hg] Blood Pressure 132/ (no code) Systolic: 03-04-2018 no n lashonda [facility] 62mm[Hg] 120 mm[Hg] 08:31-0500 ([id number]) Diastolic: 60 - 80 mm[Hg] Blood Pressure 109/ (no code) Systolic: 03-03-2018 no n lashonda [facility] 63mm[Hg] 120 mm[Hg] 12:28-0500 ([id number]) Diastolic: 60 - 80 mm[Hg] Blood Pressure 130/ (no code) Systolic: 03-03-2018 no n lashonda [facility] 63mm[Hg] 120 mm[Hg] 08:54-0500 ([id number]) Diastolic: 60 - 80 mm[Hg] Blood Pressure 109/ (no code) Systolic: 03-02-2018 no n lashonda [facility] 66mm[Hg] 120 mm[Hg] 13:14-0500 ([id number]) Diastolic: 60 - 80 mm[Hg] Blood Pressure 109/ (no code) Systolic: 03-02-2018 no n lashonda [facility] 66mm[Hg] 120 mm[Hg] 08:46-0500 ([id number]) Diastolic: 60 - 80 mm[Hg] Blood Pressure 120/ (H) Systolic: 03-01-2018 no na me [facility] 98mm[Hg] 120 mm[Hg] 11:24-0500 ([id number]) Diastolic: 60 - 80 mm[Hg] Blood Pressure 120/ (H) Systolic: 03-01-2018 no na me [facility] 98mm[Hg] 120 mm[Hg] 09:48-0500 ([id number]) Diastolic: 60 - 80 mm[Hg] Blood Pressure 124/ (no code) Systolic: 02-27-2018 no n lashonda [facility] 62mm[Hg] 120 mm[Hg] 11:39-0500 ([id number]) Diastolic: 60 - 80 mm[Hg] Blood Pressure 124/ (no code) Systolic: 02-27-2018 no n lashonda [facility] 62mm[Hg] 120 mm[Hg] 09:13-0500 ([id number]) Diastolic: 60 - 80 mm[Hg] Blood Pressure 137/ (no code) Systolic: 02-26-2018 no n lashonda [facility] 68mm[Hg] 120 mm[Hg] 10:22-0500 ([id number]) Diastolic: 60 - 80 mm[Hg] Blood Pressure 144/ (no code) Systolic: 02-25-2018 no n lashonda [facility] 68mm[Hg] 120 mm[Hg] 12:50-0500 ([id number]) Diastolic: 60 - 80 mm[Hg] Blood Pressure 144/ (no code) Systolic: 02-25-2018 no n lashonda [facility] 68mm[Hg] 120 mm[Hg] 09:49-0500 ([id number]) Diastolic: 60 - 80 mm[Hg] Blood Pressure 162/ (H) Systolic: 02-24-2018 no na me [facility] 66mm[Hg] 120 mm[Hg] 09:06-0500 ([id number]) Diastolic: 60 - 80 mm[Hg] Blood Pressure 138/ (no code) Systolic: 02-23-2018 no n lashonda [facility] 62mm[Hg] 120 mm[Hg] 10:04-0500 ([id number]) Diastolic: 60 - 80 mm[Hg] Blood Pressure 138/ (no code) Systolic: 02-22-2018 no n lashonda [facility] 72mm[Hg] 120 mm[Hg] 09:37-0500 ([id number]) Diastolic: 60 - 80 mm[Hg] Diastolic 70 mm[Hg] (no code) 60 - 80 mm[Hg] 02-22-2018 no name [facility] blood pressure 09:35-0500 ([id number]) Blood Pressure 179/ (HH) Systolic: 02-21-2018 no na me [facility] 67mm[Hg] 120 mm[Hg] 10:24-0500 ([id number]) Diastolic: 60 - 80 mm[Hg] Blood Pressure 143/ (no code) Systolic: 02-20-2018 no n [facility] 62mm[Hg] 120 mm[Hg] 09:37-0500 ([id number]) Diastolic: 60 - 80 mm[Hg] Blood Pressure 156/ (no code) Systolic: 02-19-2018 no n [facility] 73mm[Hg] 120 mm[Hg] 09:49-0500 ([id number]) Diastolic: 60 - 80 mm[Hg] Blood Pressure 116/ (no code) Systolic: 02-18-2018 no n [facility] 93mm[Hg] 120 mm[Hg] 09:32-0500 ([id number]) Diastolic: 60 - 80 mm[Hg] Blood Pressure 131/ (no code) Systolic: 02-17-2018 no n [facility] 56mm[Hg] 120 mm[Hg] 14:47-0500 ([id number]) Diastolic: 60 - 80 mm[Hg] Blood Pressure 131/ (no code) Systolic: 02-17-2018 no n [facility] 56mm[Hg] 120 mm[Hg] 08:34-0500 ([id number]) Diastolic: 60 - 80 mm[Hg] Blood Pressure 131/ (no code) Systolic: 02-16-2018 no n [facility] 68mm[Hg] 120 mm[Hg] 14:52-0500 ([id number]) Diastolic: 60 - 80 mm[Hg] Blood Pressure 170/ (HH) Systolic: 02-16-2018 no na me [facility] 68mm[Hg] 120 mm[Hg] 09:48-0500 ([id number]) Diastolic: 60 - 80 mm[Hg] Blood Pressure 131/ (no code) Systolic: 02-15-2018 no n [facility] 67mm[Hg] 120 mm[Hg] 14:17-0500 ([id number]) Diastolic: 60 - 80 mm[Hg] Blood Pressure 161/ (H) Systolic: 02-15-2018 no na me [facility] 72mm[Hg] 120 mm[Hg] 09:36-0500 ([id number]) Diastolic: 60 - 80 mm[Hg] Blood Pressure 143/ (no code) Systolic: 02-14-2018 no n [facility] 71mm[Hg] 120 mm[Hg] 08:53-0500 ([id number]) Diastolic: 60 - 80 mm[Hg] Blood Pressure 129/ (no code) Systolic: 02-12-2018 no n [facility] 63mm[Hg] 120 mm[Hg] 14:09-0500 ([id number]) Diastolic: 60 - 80 mm[Hg] Blood Pressure 129/ (no code) Systolic: 02-12-2018 no n [facility] 63mm[Hg] 120 mm[Hg] 09:34-0500 ([id number]) Diastolic: 60 - 80 mm[Hg] Blood Pressure 102/ (no code) Systolic: 02-11-2018 no n [facility] 58mm[Hg] 120 mm[Hg] 20:30-0500 ([id number]) Diastolic: 60 - 80 mm[Hg] Blood Pressure 145/ (no code) Systolic: 02-11-2018 no n [facility] 66mm[Hg] 120 mm[Hg] 10:09-0500 ([id number]) Diastolic: 60 - 80 mm[Hg] Blood Pressure 148/ (no code) Systolic: 02-10-2018 no n [facility] 69mm[Hg] 120 mm[Hg] 14:35-0500 ([id number]) Diastolic: 60 - 80 mm[Hg] Blood Pressure 148/ (no code) Systolic: 02-10-2018 no n [facility] 69mm[Hg] 120 mm[Hg] 09:32-0500 ([id number]) Diastolic: 60 - 80 mm[Hg] Blood Pressure 156/ (no code) Systolic: 02-09-2018 no n [facility] 74mm[Hg] 120 mm[Hg] 14:42-0500 ([id number]) Diastolic: 60 - 80 mm[Hg] Blood Pressure 156/ (no code) Systolic: 02-09-2018 no n [facility] 74mm[Hg] 120 mm[Hg] 09:52-0500 ([id number]) Diastolic: 60 - 80 mm[Hg] Blood Pressure 108/ (no code) Systolic: 02-08-2018 no n [facility] 80mm[Hg] 120 mm[Hg] 14:040500 ([id number]) Diastolic: 60 - 80 mm[Hg] Blood Pressure 108/ (no code) Systolic: 02-08-2018 no n [facility] 80mm[Hg] 120 mm[Hg] 08:10-0500 ([id number]) Diastolic: 60 - 80 mm[Hg] Blood Pressure 146/ (no code) Systolic: 02-07-2018 no n [facility] 71mm[Hg] 120 mm[Hg] 08:34-0500 ([id number]) Diastolic: 60 - 80 mm[Hg] Blood Pressure 160/ (H) Systolic: 02-06-2018 no na me [facility] 88mm[Hg] 120 mm[Hg] 09:16-0500 ([id number]) Diastolic: 60 - 80 mm[Hg] Blood Pressure 156/ (no code) Systolic: 02-05-2018 no n [facility] 69mm[Hg] 120 mm[Hg] 10:04-0500 ([id number]) Diastolic: 60 - 80 mm[Hg] Blood Pressure 180/ (HH) Systolic: 02-04-2018 no na me [facility] 69mm[Hg] 120 mm[Hg] 09:28-0500 ([id number]) Diastolic: 60 - 80 mm[Hg] Blood Pressure 154/ (no code) Systolic: 02-03-2018 no n [facility] 71mm[Hg] 120 mm[Hg] 14:150500 ([id number]) Diastolic: 60 - 80 mm[Hg] Blood Pressure 154/ (no code) Systolic: 02-03-2018 no n [facility] 71mm[Hg] 120 mm[Hg] 09:47-0500 ([id number]) Diastolic: 60 - 80 mm[Hg] Blood Pressure 163/ (H) Systolic: 02-02-2018 no na me [facility] 63mm[Hg] 120 mm[Hg] 14:190500 ([id number]) Diastolic: 60 - 80 mm[Hg] Blood Pressure 171/ (HH) Systolic: 02-02-2018 no na me [facility] 72mm[Hg] 120 mm[Hg] 14:140500 ([id number]) Diastolic: 60 - 80 mm[Hg] Blood Pressure 171/ (HH) Systolic: 02-02-2018 no na me [facility] 72mm[Hg] 120 mm[Hg] 09:44-0500 ([id number]) Diastolic: 60 - 80 mm[Hg] Blood Pressure 116/ (L) Systolic: 02-01-2018 no na me [facility] 45mm[Hg] 120 mm[Hg] 12:100500 ([id number]) Diastolic: 60 - 80 mm[Hg] Blood Pressure 172/ (HH) Systolic: 02-01-2018 no na me [facility] 78mm[Hg] 120 mm[Hg] 12:060500 ([id number]) Diastolic: 60 - 80 mm[Hg] Blood Pressure 172/ (HH) Systolic: 02-01-2018 no na me [facility] 78mm[Hg] 120 mm[Hg] 09:43-0500 ([id number]) Diastolic: 60 - 80 mm[Hg] Blood Pressure 145/ (no code) Systolic: 01-31-2018 no n [facility] 61mm[Hg] 120 mm[Hg] 08:21-0500 ([id number]) Diastolic: 60 - 80 mm[Hg] Blood Pressure 159/ (no code) Systolic: 01-30-2018 no n [facility] 58mm[Hg] 120 mm[Hg] 10:45-0500 ([id number]) Diastolic: 60 - 80 mm[Hg] Blood Pressure 176/ (HH) Systolic: 01-30-2018 no na me [facility] 73mm[Hg] 120 mm[Hg] 10:42-0500 ([id number]) Diastolic: 60 - 80 mm[Hg] Blood Pressure 164/ (H) Systolic: 01-29-2018 no na me [facility] 83mm[Hg] 120 mm[Hg] 10:22-0500 ([id number]) Diastolic: 60 - 80 mm[Hg] Blood Pressure 134/ (no code) Systolic: 01-28-2018 no n [facility] 70mm[Hg] 120 mm[Hg] 08:39-0500 ([id number]) Diastolic: 60 - 80 mm[Hg] Blood Pressure 144/ (no code) Systolic: 01-27-2018 no n [facility] 79mm[Hg] 120 mm[Hg] 10:15-0500 ([id number]) Diastolic: 60 - 80 mm[Hg] Blood Pressure 133/ (no code) Systolic: 01-26-2018 no n [facility] 63mm[Hg] 120 mm[Hg] 14:14-0500 ([id number]) Diastolic: 60 - 80 mm[Hg] Blood Pressure 133/ (no code) Systolic: 01-26-2018 no n [facility] 63mm[Hg] 120 mm[Hg] 09:58-0500 ([id number]) Diastolic: 60 - 80 mm[Hg] Blood Pressure 144/ (no code) Systolic: 01-25-2018 no n [facility] 72mm[Hg] 120 mm[Hg] 13:01-0500 ([id number]) Diastolic: 60 - 80 mm[Hg] Blood Pressure 144/ (no code) Systolic: 01-25-2018 no n [facility] 72mm[Hg] 120 mm[Hg] 08:58-0500 ([id number]) Diastolic: 60 - 80 mm[Hg] Blood Pressure 119/ (no code) Systolic: 01-24-2018 no n [facility] 57mm[Hg] 120 mm[Hg] 08:28-0500 ([id number]) Diastolic: 60 - 80 mm[Hg] Blood Pressure 109/ (no code) Systolic: 01-23-2018 no n [facility] 61mm[Hg] 120 mm[Hg] 10:33-0400 ([id number]) Diastolic: 60 - 80 mm[Hg] Blood Pressure 148/ (no code) Systolic: 01-22-2018 no n [facility] 69mm[Hg] 120 mm[Hg] 10:08-0400 ([id number]) Diastolic: 60 - 80 mm[Hg] Blood Pressure 166/ (H) Systolic: 01-21-2018 no na me [facility] 75mm[Hg] 120 mm[Hg] 11:10-0400 ([id number]) Diastolic: 60 - 80 mm[Hg] Blood Pressure 124/ (no code) Systolic: 01-20-2018 no n [facility] 60mm[Hg] 120 mm[Hg] 09:36-0400 ([id number]) Diastolic: 60 - 80 mm[Hg] Blood Pressure 161/ (H) Systolic: 01-19-2018 no na me [facility] 73mm[Hg] 120 mm[Hg] 14:27-0400 ([id number]) Diastolic: 60 - 80 mm[Hg] Blood Pressure 131/ (no code) Systolic: 01-14-2018 no n [facility] 64mm[Hg] 120 mm[Hg] 09:02-0400 ([id number]) Diastolic: 60 - 80 mm[Hg] Blood Pressure 138/ (no code) Systolic: 01-13-2018 no n [facility] 65mm[Hg] 120 mm[Hg] 15:48-0400 ([id number]) Diastolic: 60 - 80 mm[Hg] Blood Pressure 154/ (no code) Systolic: 01-12-2018 no n [facility] 64mm[Hg] 120 mm[Hg] 14:070400 ([id number]) Diastolic: 60 - 80 mm[Hg] Blood Pressure 158/ (no code) Systolic: 01-12-2018 no n [facility] 64mm[Hg] 120 mm[Hg] 09:02-0400 ([id number]) Diastolic: 60 - 80 mm[Hg] Blood Pressure 157/ (no code) Systolic: 01-11-2018 no n [facility] 76mm[Hg] 120 mm[Hg] 10:220400 ([id number]) Diastolic: 60 - 80 mm[Hg] Blood Pressure 96/ (no code) Systolic: 01-10-2018 no n [facility] 59mm[Hg] 120 mm[Hg] 10:460400 ([id number]) Diastolic: 60 - 80 mm[Hg] Blood Pressure 172/ (HH) Systolic: 01-10-2018 no na me [facility] 84mm[Hg] 120 mm[Hg] 09:140400 ([id number]) Diastolic: 60 - 80 mm[Hg] Blood Pressure 134/ (no code) Systolic: 01-09-2018 no n [facility] 64mm[Hg] 120 mm[Hg] 09:410400 ([id number]) Diastolic: 60 - 80 mm[Hg] Blood Pressure 136/ (no code) Systolic: 01-08-2018 no n [facility] 66mm[Hg] 120 mm[Hg] 17:040400 ([id number]) Diastolic: 60 - 80 mm[Hg] Blood Pressure 136/ (no code) Systolic: 01-08-2018 no n [facility] 66mm[Hg] 120 mm[Hg] 09:28-0400 ([id number]) Diastolic: 60 - 80 mm[Hg] Blood Pressure 122/ (no code) Systolic: 01-06-2018 no n [facility] 54mm[Hg] 120 mm[Hg] 13:30-0400 ([id number]) Diastolic: 60 - 80 mm[Hg] Blood Pressure 122/ (no code) Systolic: 01-06-2018 no n [facility] 54mm[Hg] 120 mm[Hg] 09: ([id number]) Diastolic: 60 - 80 mm[Hg] Blood Pressure 118/ (no code) Systolic: 01-05-2018 no n [facility] 55mm[Hg] 120 mm[Hg] 09: ([id number]) Diastolic: 60 - 80 mm[Hg] Blood Pressure 167/ (H) Systolic: 01-04-2018 no na me [facility] 69mm[Hg] 120 mm[Hg] 10: ([id number]) Diastolic: 60 - 80 mm[Hg] Blood Pressure 105/ (no code) Systolic: 12-29-2017 no n [facility] 61mm[Hg] 120 mm[Hg] 12: ([id number]) Diastolic: 60 - 80 mm[Hg] Heart rate 69 /min (no code) 60 - 100 /min 06-27-2019 no name [facility] 10:02-0400 ([id number]) Heart rate 63 /min (no code) 60 - 100 /min 06-24-2019 no name [facility] 10:56-0400 ([id number]) Heart rate 77 /min (no code) 60 - 100 /min 06-22-2019 no name [facility] 06:02-0400 ([id number]) Heart rate 65 /min (no code) 60 - 100 /min 06-21-2019 no name [facility] 09:21-0400 ([id number]) Heart rate 66 /min (no code) 60 - 100 /min 06-20-2019 no name [facility] 09:19-0400 ([id number]) Heart rate 63 /min (no code) 60 - 100 /min 06-18-2019 no name [facility] 09:25-0400 ([id number]) Heart rate 82 /min (no code) 60 - 100 /min 06-17-2019 no name [facility] 06:54-0400 ([id number]) Heart rate 77 /min (no code) 60 - 100 /min 06-15-2019 no name [facility] 05:41-0400 ([id number]) Heart rate 98 /min (no code) 60 - 100 /min 06-14-2019 no name [facility] 10:48-0400 ([id number]) Heart rate 62 /min (no code) 60 - 100 /min 06-13-2019 no name [facility] 09:53-0400 ([id number]) Heart rate 66 /min (no code) 60 - 100 /min 06-10-2019 no name [facility] 05:15-0400 ([id number]) Heart rate 77 /min (no code) 60 - 100 /min 06-08-2019 no name [facility] 07:58-0400 ([id number]) Heart rate 65 /min (no code) 60 - 100 /min 06-07-2019 no name [facility] 10:09-0400 ([id number]) Heart rate 62 /min (no code) 60 - 100 /min 06-06-2019 no name [facility] 08:39-0400 ([id number]) Heart rate 78 /min (no code) 60 - 100 /min 06-04-2019 no name [facility] 07:42-0400 ([id number]) Heart rate 66 /min (no code) 60 - 100 /min 06-03-2019 no name [facility] 06:37-0400 ([id number]) Heart rate 64 /min (no code) 60 - 100 /min 06-01-2019 no name [facility] 06:07-0400 ([id number]) Heart rate 65 /min (no code) 60 - 100 /min 05-31-2019 no name [facility] 09:00-0400 ([id number]) Heart rate 65 /min (no code) 60 - 100 /min 05-30-2019 no name [facility] 09:13-0400 ([id number]) Heart rate 66 /min (no code) 60 - 100 /min 05-28-2019 no name [facility] 04:30-0500 ([id number]) Heart rate 75 /min (no code) 60 - 100 /min 05-27-2019 no name [facility] 05:50-0500 ([id number]) Heart rate 65 /min (no code) 60 - 100 /min 05-26-2019 no name [facility] 05:57-0500 ([id number]) Heart rate 60 /min (no code) 60 - 100 /min 05-25-2019 no name [facility] 04:46-0500 ([id number]) Heart rate 64 /min (no code) 60 - 100 /min 05-24-2019 no name [facility] 04:02-0500 ([id number]) Heart rate 68 /min (no code) 60 - 100 /min 05-23-2019 no name [facility] 03:50-0500 ([id number]) Heart rate 63 /min (no code) 60 - 100 /min 05-21-2019 no name [facility] 07:55-0500 ([id number]) Heart rate 69 /min (no code) 60 - 100 /min 05-20-2019 no name [facility] 05:12-0500 ([id number]) Heart rate 62 /min (no code) 60 - 100 /min 05-19-2019 no name [facility] 04:17-0500 ([id number]) Heart rate 72 /min (no code) 60 - 100 /min 05-18-2019 no name [facility] 04:04-0500 ([id number]) Heart rate 68 /min (no code) 60 - 100 /min 05-17-2019 no name [facility] 06:41-0500 ([id number]) Heart rate 71 /min (no code) 60 - 100 /min 05-16-2019 no name [facility] 08:04-0500 ([id number]) Heart rate 59 /min (no code) 60 - 100 /min 05-14-2019 no name [facility] 05:03-0500 ([id number]) Heart rate 65 /min (no code) 60 - 100 /min 05-13-2019 no name [facility] 12:31-0500 ([id number]) Heart rate 62 /min (no code) 60 - 100 /min 05-11-2019 no name [facility] 10:51-0500 ([id number]) Heart rate 62 /min (no code) 60 - 100 /min 05-10-2019 no name [facility] 06:11-0500 ([id number]) Heart rate 64 /min (no code) 60 - 100 /min 05-09-2019 no name [facility] 07:09-0500 ([id number]) Heart rate 81 /min (no code) 60 - 100 /min 05-07-2019 no name [facility] 05:25-0500 ([id number]) Heart rate 69 /min (no code) 60 - 100 /min 05-06-2019 no name [facility] 05:36-0500 ([id number]) Heart rate 59 /min (no code) 60 - 100 /min 05-04-2019 no name [facility] 11:45-0500 ([id number]) Heart rate 59 /min (no code) 60 - 100 /min 05-04-2019 no name [facility] 03:48-0500 ([id number]) Heart rate 77 /min (no code) 60 - 100 /min 05-03-2019 no name [facility] 08:12-0500 ([id number]) Heart rate 67 /min (no code) 60 - 100 /min 05-02-2019 no name [facility] 10:49-0500 ([id number]) Heart rate 67 /min (no code) 60 - 100 /min 04-29-2019 no name [facility] 03:22-0500 ([id number]) Heart rate 67 /min (no code) 60 - 100 /min 04-27-2019 no name [facility] 08:14-0500 ([id number]) Heart rate 71 /min (no code) 60 - 100 /min 04-26-2019 no name [facility] 06:28-0500 ([id number]) Heart rate 83 /min (no code) 60 - 100 /min 04-25-2019 no name [facility] 08:36-0500 ([id number]) Heart rate 64 /min (no code) 60 - 100 /min 04-22-2019 no name [facility] 05:01-0500 ([id number]) Heart rate 65 /min (no code) 60 - 100 /min 04-21-2019 no name [facility] 05:20-0500 ([id number]) Heart rate 60 /min (no code) 60 - 100 /min 04-20-2019 no name [facility] 05:15-0500 ([id number]) Heart rate 69 /min (no code) 60 - 100 /min 04-19-2019 no name [facility] 08:40-0500 ([id number]) Heart rate 69 /min (no code) 60 - 100 /min 04-18-2019 no name [facility] 06:28-0500 ([id number]) Heart rate 64 /min (no code) 60 - 100 /min 04-16-2019 no name [facility] 09:31-0500 ([id number]) Heart rate 69 /min (no code) 60 - 100 /min 04-15-2019 no name [facility] 04:22-0500 ([id number]) Heart rate 82 /min (no code) 60 - 100 /min 04-15-2019 no name [facility] 04:19-0500 ([id number]) Heart rate 68 /min (no code) 60 - 100 /min 04-14-2019 no name [facility] 06:17-0500 ([id number]) Heart rate 75 /min (no code) 60 - 100 /min 04-13-2019 no name [facility] 04:19-0500 ([id number]) Heart rate 74 /min (no code) 60 - 100 /min 04-12-2019 no name [facility] 05:40-0500 ([id number]) Heart rate 81 /min (no code) 60 - 100 /min 04-11-2019 no name [facility] 08:52-0500 ([id number]) Heart rate 84 /min (no code) 60 - 100 /min 04-10-2019 no name [facility] 04:52-0500 ([id number]) Heart rate 65 /min (no code) 60 - 100 /min 04-09-2019 no name [facility] 05:28-0500 ([id number]) Heart rate 72 /min (no code) 60 - 100 /min 04-08-2019 no name [facility] 06:55-0500 ([id number]) Heart rate 69 /min (no code) 60 - 100 /min 04-06-2019 no name [facility] 04:17-0500 ([id number]) Heart rate 74 /min (no code) 60 - 100 /min 04-05-2019 no name [facility] 07:45-0500 ([id number]) Heart rate 67 /min (no code) 60 - 100 /min 04-04-2019 no name [facility] 04:46-0500 ([id number]) Heart rate 68 /min (no code) 60 - 100 /min 04-03-2019 no name [facility] 04:22-0500 ([id number]) Heart rate 77 /min (no code) 60 - 100 /min 04-02-2019 no name [facility] 06:29-0500 ([id number]) Heart rate 75 /min (no code) 60 - 100 /min 04-01-2019 no name [facility] 04:50-0500 ([id number]) Heart rate 101 /min (no code) 60 - 100 /min 03-31-2019 no name [facility] 04:33-0500 ([id number]) Heart rate 69 /min (no code) 60 - 100 /min 03-30-2019 no name [facility] 04:44-0500 ([id number]) Heart rate 74 /min (no code) 60 - 100 /min 03-29-2019 no name [facility] 06:55-0500 ([id number]) Heart rate 72 /min (no code) 60 - 100 /min 03-28-2019 no name [facility] 06:42-0500 ([id number]) Heart rate 72 /min (no code) 60 - 100 /min 03-28-2019 no name [facility] 03:21-0500 ([id number]) Heart rate 79 /min (no code) 60 - 100 /min 03-26-2019 no name [facility] 04:19-0500 ([id number]) Heart rate 71 /min (no code) 60 - 100 /min 03-25-2019 no name [facility] 04:08-0500 ([id number]) Heart rate 75 /min (no code) 60 - 100 /min 03-22-2019 no name [facility] 07:34-0500 ([id number]) Heart rate 73 /min (no code) 60 - 100 /min 03-22-2019 no name [facility] 07:32-0500 ([id number]) Heart rate 73 /min (no code) 60 - 100 /min 03-21-2019 no name [facility] 08:18-0500 ([id number]) Heart rate 71 /min (no code) 60 - 100 /min 03-18-2019 no name [facility] 04:05-0500 ([id number]) Heart rate 88 /min (no code) 60 - 100 /min 03-15-2019 no name [facility] 06:42-0500 ([id number]) Heart rate 71 /min (no code) 60 - 100 /min 03-14-2019 no name [facility] 09:10-0500 ([id number]) Heart rate 74 /min (no code) 60 - 100 /min 03-13-2019 no name [facility] 04:19-0500 ([id number]) Heart rate 75 /min (no code) 60 - 100 /min 03-12-2019 no name [facility] 07:59-0500 ([id number]) Heart rate 74 /min (no code) 60 - 100 /min 03-11-2019 no name [facility] 06:14-0500 ([id number]) Heart rate 74 /min (no code) 60 - 100 /min 03-10-2019 no name [facility] 06:09-0500 ([id number]) Heart rate 69 /min (no code) 60 - 100 /min 03-09-2019 no name [facility] 04:56-0500 ([id number]) Heart rate 79 /min (no code) 60 - 100 /min 03-08-2019 no name [facility] 08:05-0500 ([id number]) Heart rate 77 /min (no code) 60 - 100 /min 03-07-2019 no name [facility] 07:16-0500 ([id number]) Heart rate 68 /min (no code) 60 - 100 /min 03-05-2019 no name [facility] 08:24-0500 ([id number]) Heart rate 73 /min (no code) 60 - 100 /min 03-05-2019 no name [facility] 08:19-0500 ([id number]) Heart rate 73 /min (no code) 60 - 100 /min 03-04-2019 no name [facility] 05:32-0500 ([id number]) Heart rate 66 /min (no code) 60 - 100 /min 03-02-2019 no name [facility] 04:56-0500 ([id number]) Heart rate 90 /min (no code) 60 - 100 /min 03-01-2019 no name [facility] 08:18-0500 ([id number]) Heart rate 69 /min (no code) 60 - 100 /min 02-28-2019 no name [facility] 05:46-0500 ([id number]) Heart rate 66 /min (no code) 60 - 100 /min 02-27-2019 no name [facility] 03:31-0500 ([id number]) Heart rate 71 /min (no code) 60 - 100 /min 02-24-2019 no name [facility] 09:46-0500 ([id number]) Heart rate 71 /min (no code) 60 - 100 /min 02-23-2019 no name [facility] 06:24-0500 ([id number]) Heart rate 67 /min (no code) 60 - 100 /min 02-22-2019 no name [facility] 08:16-0500 ([id number]) Heart rate 76 /min (no code) 60 - 100 /min 02-21-2019 no name [facility] 09:55-0500 ([id number]) Heart rate 81 /min (no code) 60 - 100 /min 02-19-2019 no name [facility] 05:35-0500 ([id number]) Heart rate 82 /min (no code) 60 - 100 /min 02-18-2019 no name [facility] 04:47-0500 ([id number]) Heart rate 76 /min (no code) 60 - 100 /min 02-17-2019 no name [facility] 05:00-0500 ([id number]) Heart rate 80 /min (no code) 60 - 100 /min 02-16-2019 no name [facility] 04:53-0500 ([id number]) Heart rate 75 /min (no code) 60 - 100 /min 02-15-2019 no name [facility] 04:22-0500 ([id number]) Heart rate 79 /min (no code) 60 - 100 /min 02-14-2019 no name [facility] 04:47-0500 ([id number]) Heart rate 78 /min (no code) 60 - 100 /min 02-13-2019 no name [facility] 02:42-0500 ([id number]) Heart rate 66 /min (no code) 60 - 100 /min 02-12-2019 no name [facility] 03:22-0500 ([id number]) Heart rate 67 /min (no code) 60 - 100 /min 02-11-2019 no name [facility] 05:23-0500 ([id number]) Heart rate 53 /min (no code) 60 - 100 /min 02-10-2019 no name [facility] 11:04-0500 ([id number]) Heart rate 53 /min (no code) 60 - 100 /min 02-09-2019 no name [facility] 05:08-0500 ([id number]) Heart rate 61 /min (no code) 60 - 100 /min 02-08-2019 no name [facility] 06:58-0500 ([id number]) Heart rate 58 /min (no code) 60 - 100 /min 02-07-2019 no name [facility] 04:25-0500 ([id number]) Heart rate 66 /min (no code) 60 - 100 /min 02-06-2019 no name [facility] 03:40-0500 ([id number]) Heart rate 56 /min (no code) 60 - 100 /min 02-05-2019 no name [facility] 04:26-0500 ([id number]) Heart rate 54 /min (no code) 60 - 100 /min 02-04-2019 no name [facility] 05:20-0500 ([id number]) Heart rate 54 /min (no code) 60 - 100 /min 02-04-2019 no name [facility] 03:21-0500 ([id number]) Heart rate 50 /min (no code) 60 - 100 /min 02-02-2019 no name [facility] 07:08-0500 ([id number]) Heart rate 49 /min (LL) 60 - 100 /min 02-01-2019 no name [facility] 04:42-0500 ([id number]) Heart rate 52 /min (no code) 60 - 100 /min 01-31-2019 no name [facility] 08:11-0500 ([id number]) Heart rate 52 /min (no code) 60 - 100 /min 01-29-2019 no name [facility] 03:50-0500 ([id number]) Heart rate 52 /min (no code) 60 - 100 /min 01-28-2019 no name [facility] 03:12-0500 ([id number]) Heart rate 68 /min (no code) 60 - 100 /min 01-26-2019 no name [facility] 05:04-0500 ([id number]) Heart rate 56 /min (no code) 60 - 100 /min 01-25-2019 no name [facility] 07:39-0500 ([id number]) Heart rate 58 /min (no code) 60 - 100 /min 01-24-2019 no name [facility] 05:34-0500 ([id number]) Heart rate 58 /min (no code) 60 - 100 /min 01-23-2019 no name [facility] 04:06-0500 ([id number]) Heart rate 60 /min (no code) 60 - 100 /min 01-22-2019 no name [facility] 05:56-0400 ([id number]) Heart rate 56 /min (no code) 60 - 100 /min 01-21-2019 no name [facility] 05:17-0400 ([id number]) Heart rate 56 /min (no code) 60 - 100 /min 01-19-2019 no name [facility] 06:19-0400 ([id number]) Heart rate 59 /min (no code) 60 - 100 /min 01-18-2019 no name [facility] 08:49-0400 ([id number]) Heart rate 54 /min (no code) 60 - 100 /min 01-18-2019 no name [facility] 08:46-0400 ([id number]) Heart rate 49 /min (LL) 60 - 100 /min 01-17-2019 no name [facility] 12:11-0400 ([id number]) Heart rate 49 /min (LL) 60 - 100 /min 01-17-2019 no name [facility] 09:23-0400 ([id number]) Heart rate 59 /min (no code) 60 - 100 /min 01-16-2019 no name [facility] 10:18-0400 ([id number]) Heart rate 51 /min (no code) 60 - 100 /min 01-15-2019 no name [facility] 14:23-0400 ([id number]) Heart rate 51 /min (no code) 60 - 100 /min 01-15-2019 no name [facility] 10:01-0400 ([id number]) Heart rate 53 /min (no code) 60 - 100 /min 01-14-2019 no name [facility] 10:22-0400 ([id number]) Heart rate 59 /min (no code) 60 - 100 /min 01-13-2019 no name [facility] 11:11-0400 ([id number]) Heart rate 56 /min (no code) 60 - 100 /min 01-12-2019 no name [facility] 10:03-0400 ([id number]) Heart rate 56 /min (no code) 60 - 100 /min 01-11-2019 no name [facility] 11:26-0400 ([id number]) Heart rate 56 /min (no code) 60 - 100 /min 01-11-2019 no name [facility] 09:41-0400 ([id number]) Heart rate 50 /min (no code) 60 - 100 /min 01-10-2019 no name [facility] 10:57-0400 ([id number]) Heart rate 51 /min (no code) 60 - 100 /min 01-09-2019 no name [facility] 10:04-0400 ([id number]) Heart rate 52 /min (no code) 60 - 100 /min 01-08-2019 no name [facility] 10:42-0400 ([id number]) Heart rate 55 /min (no code) 60 - 100 /min 01-07-2019 no name [facility] 10:39-0400 ([id number]) Heart rate 59 /min (no code) 60 - 100 /min 01-06-2019 no name [facility] 12:59-0400 ([id number]) Heart rate 55 /min (no code) 60 - 100 /min 01-05-2019 no name [facility] 15:44-0400 ([id number]) Heart rate 55 /min (no code) 60 - 100 /min 01-05-2019 no name [facility] 10:09-0400 ([id number]) Heart rate 50 /min (no code) 60 - 100 /min 01-04-2019 no name [facility] 12:18-0400 ([id number]) Heart rate 50 /min (no code) 60 - 100 /min 01-03-2019 no name [facility] 10:48-0400 ([id number]) Heart rate 55 /min (no code) 60 - 100 /min 01-02-2019 no name [facility] 13:42-0400 ([id number]) Heart rate 53 /min (no code) 60 - 100 /min 01-01-2019 no name [facility] 11:16-0400 ([id number]) Heart rate 50 /min (no code) 60 - 100 /min 12-31-2018 no name [facility] 11:22-0400 ([id number]) Heart rate 49 /min (LL) 60 - 100 /min 12-30-2018 no name [facility] 10:18-0400 ([id number]) Heart rate 51 /min (no code) 60 - 100 /min 12-29-2018 no name [facility] 10:03-0400 ([id number]) Heart rate 55 /min (no code) 60 - 100 /min 12-28-2018 no name [facility] 16:07-0400 ([id number]) Heart rate 54 /min (no code) 60 - 100 /min 12-28-2018 no name [facility] 14:50-0400 ([id number]) Heart rate 56 /min (no code) 60 - 100 /min 12-28-2018 no name [facility] 14:48-0400 ([id number]) Heart rate 57 /min (no code) 60 - 100 /min 12-27-2018 no name [facility] 13:18-0400 ([id number]) Heart rate 48 /min (LL) 60 - 100 /min 12-27-2018 no name [facility] 13:14-0400 ([id number]) Heart rate 51 /min (no code) 60 - 100 /min 12-26-2018 no name [facility] 09:04-0400 ([id number]) Heart rate 62 /min (no code) 60 - 100 /min 12-25-2018 no name [facility] 13:09-0400 ([id number]) Heart rate 47 /min (LL) 60 - 100 /min 12-25-2018 no name [facility] 11:08-0400 ([id number]) Heart rate 56 /min (no code) 60 - 100 /min 12-24-2018 no name [facility] 11:31-0400 ([id number]) Heart rate 48 /min (LL) 60 - 100 /min 12-23-2018 no name [facility] 10:59-0400 ([id number]) Heart rate 54 /min (no code) 60 - 100 /min 12-22-2018 no name [facility] 10:52-0400 ([id number]) Heart rate 53 /min (no code) 60 - 100 /min 12-21-2018 no name [facility] 10:36-0400 ([id number]) Heart rate 60 /min (no code) 60 - 100 /min 12-20-2018 no name [facility] 10:23-0400 ([id number]) Heart rate 52 /min (no code) 60 - 100 /min 12-19-2018 no name [facility] 09:43-0400 ([id number]) Heart rate 53 /min (no code) 60 - 100 /min 12-18-2018 no name [facility] 11:53-0400 ([id number]) Heart rate 52 /min (no code) 60 - 100 /min 12-17-2018 no name [facility] 17:05-0400 ([id number]) Heart rate 59 /min (no code) 60 - 100 /min 12-17-2018 no name [facility] 12:08-0400 ([id number]) Heart rate 52 /min (no code) 60 - 100 /min 12-15-2018 no name [facility] 10:19-0400 ([id number]) Heart rate 50 /min (no code) 60 - 100 /min 12-14-2018 no name [facility] 12:18-0400 ([id number]) Heart rate 52 /min (no code) 60 - 100 /min 12-14-2018 no name [facility] 10:26-0400 ([id number]) Heart rate 54 /min (no code) 60 - 100 /min 12-13-2018 no name [facility] 10:29-0400 ([id number]) Heart rate 57 /min (no code) 60 - 100 /min 12-12-2018 no name [facility] 10:15-0400 ([id number]) Heart rate 57 /min (no code) 60 - 100 /min 12-11-2018 no name [facility] 09:44-0400 ([id number]) Heart rate 53 /min (no code) 60 - 100 /min 12-10-2018 no name [facility] 12:08-0400 ([id number]) Heart rate 53 /min (no code) 60 - 100 /min 12-09-2018 no name [facility] 11:28-0400 ([id number]) Heart rate 59 /min (no code) 60 - 100 /min 12-08-2018 no name [facility] 10:41-0400 ([id number]) Heart rate 57 /min (no code) 60 - 100 /min 12-07-2018 no name [facility] 11:29-0400 ([id number]) Heart rate 58 /min (no code) 60 - 100 /min 12-06-2018 no name [facility] 11:06-0400 ([id number]) Heart rate 50 /min (no code) 60 - 100 /min 12-04-2018 no name [facility] 10:29-0400 ([id number]) Heart rate 53 /min (no code) 60 - 100 /min 12-03-2018 no name [facility] 12:35-0400 ([id number]) Heart rate 53 /min (no code) 60 - 100 /min 12-03-2018 no name [facility] 10:03-0400 ([id number]) Heart rate 53 /min (no code) 60 - 100 /min 12-02-2018 no name [facility] 11:02-0400 ([id number]) Heart rate 53 /min (no code) 60 - 100 /min 12-01-2018 no name [facility] 11:38-0400 ([id number]) Heart rate 49 /min (LL) 60 - 100 /min 11-30-2018 no name [facility] 09:23-0400 ([id number]) Heart rate 51 /min (no code) 60 - 100 /min 11-29-2018 no name [facility] 11:24-0400 ([id number]) Heart rate 46 /min (LL) 60 - 100 /min 11-28-2018 no name [facility] 09:37-0400 ([id number]) Heart rate 49 /min (LL) 60 - 100 /min 11-27-2018 no name [facility] 09:52-0400 ([id number]) Heart rate 53 /min (no code) 60 - 100 /min 11-26-2018 no name [facility] 10:06-0400 ([id number]) Heart rate 63 /min (no code) 60 - 100 /min 11-25-2018 no name [facility] 10:25-0400 ([id number]) Heart rate 55 /min (no code) 60 - 100 /min 11-24-2018 no name [facility] 14:10-0400 ([id number]) Heart rate 50 /min (no code) 60 - 100 /min 11-24-2018 no name [facility] 09:59-0400 ([id number]) Heart rate 48 /min (LL) 60 - 100 /min 11-23-2018 no name [facility] 10:45-0400 ([id number]) Heart rate 50 /min (no code) 60 - 100 /min 11-21-2018 no name [facility] 10:48-0400 ([id number]) Heart rate 54 /min (no code) 60 - 100 /min 11-20-2018 no name [facility] 10:03-0400 ([id number]) Heart rate 51 /min (no code) 60 - 100 /min 11-19-2018 no name [facility] 11:16-0400 ([id number]) Heart rate 51 /min (no code) 60 - 100 /min 11-18-2018 no name [facility] 10:02-0400 ([id number]) Heart rate 50 /min (no code) 60 - 100 /min 11-17-2018 no name [facility] 10:04-0400 ([id number]) Heart rate 51 /min (no code) 60 - 100 /min 11-16-2018 no name [facility] 14:02-0400 ([id number]) Heart rate 57 /min (no code) 60 - 100 /min 11-15-2018 no name [facility] 17:53-0400 ([id number]) Heart rate 58 /min (no code) 60 - 100 /min 11-14-2018 no name [facility] 10:18-0400 ([id number]) Heart rate 52 /min (no code) 60 - 100 /min 11-13-2018 no name [facility] 10:09-0400 ([id number]) Heart rate 52 /min (no code) 60 - 100 /min 11-12-2018 no name [facility] 09:27-0400 ([id number]) Heart rate 56 /min (no code) 60 - 100 /min 11-11-2018 no name [facility] 10:08-0400 ([id number]) Heart rate 56 /min (no code) 60 - 100 /min 11-10-2018 no name [facility] 14:02-0400 ([id number]) Heart rate 56 /min (no code) 60 - 100 /min 11-10-2018 no name [facility] 09:17-0400 ([id number]) Heart rate 51 /min (no code) 60 - 100 /min 11-09-2018 no name [facility] 10:59-0400 ([id number]) Heart rate 51 /min (no code) 60 - 100 /min 11-08-2018 no name [facility] 10:33-0400 ([id number]) Heart rate 48 /min (LL) 60 - 100 /min 11-06-2018 no name [facility] 11:28-0400 ([id number]) Heart rate 51 /min (no code) 60 - 100 /min 11-06-2018 no name [facility] 11:17-0400 ([id number]) Heart rate 54 /min (no code) 60 - 100 /min 11-05-2018 no name [facility] 17:19-0400 ([id number]) Heart rate 56 /min (no code) 60 - 100 /min 11-05-2018 no name [facility] 10:32-0400 ([id number]) Heart rate 58 /min (no code) 60 - 100 /min 11-04-2018 no name [facility] 10:10-0400 ([id number]) Heart rate 54 /min (no code) 60 - 100 /min 11-03-2018 no name [facility] 10:00-0400 ([id number]) Heart rate 59 /min (no code) 60 - 100 /min 11-01-2018 no name [facility] 10:00-0400 ([id number]) Heart rate 51 /min (no code) 60 - 100 /min 10-31-2018 no name [facility] 10:00-0400 ([id number]) Heart rate 61 /min (no code) 60 - 100 /min 10-29-2018 no name [facility] 10:52-0400 ([id number]) Heart rate 55 /min (no code) 60 - 100 /min 10-28-2018 no name [facility] 08:54-0400 ([id number]) Heart rate 50 /min (no code) 60 - 100 /min 10-27-2018 no name [facility] 18:49-0400 ([id number]) Heart rate 59 /min (no code) 60 - 100 /min 10-26-2018 no name [facility] 14:47-0400 ([id number]) Heart rate 59 /min (no code) 60 - 100 /min 10-26-2018 no name [facility] 09:30-0400 ([id number]) Heart rate 51 /min (no code) 60 - 100 /min 10-25-2018 no name [facility] 11:05-0400 ([id number]) Heart rate 56 /min (no code) 60 - 100 /min 10-24-2018 no name [facility] 09:25-0400 ([id number]) Heart rate 48 /min (LL) 60 - 100 /min 10-23-2018 no name [facility] 10:44-0400 ([id number]) Heart rate 50 /min (no code) 60 - 100 /min 10-22-2018 no name [facility] 11:20-0400 ([id number]) Heart rate 47 /min (LL) 60 - 100 /min 10-21-2018 no name [facility] 10:47-0400 ([id number]) Heart rate 95 /min (no code) 60 - 100 /min 10-21-2018 no name [facility] 10:42-0400 ([id number]) Heart rate 45 /min (LL) 60 - 100 /min 10-20-2018 no name [facility] 10:10-0400 ([id number]) Heart rate 49 /min (LL) 60 - 100 /min 10-19-2018 no name [facility] 14:21-0400 ([id number]) Heart rate 52 /min (no code) 60 - 100 /min 10-19-2018 no name [facility] 14:19-0400 ([id number]) Heart rate 52 /min (no code) 60 - 100 /min 10-19-2018 no name [facility] 09:56-0400 ([id number]) Heart rate 53 /min (no code) 60 - 100 /min 10-18-2018 no name [facility] 11:26-0400 ([id number]) Heart rate 48 /min (LL) 60 - 100 /min 10-17-2018 no name [facility] 10:19-0400 ([id number]) Heart rate 51 /min (no code) 60 - 100 /min 10-16-2018 no name [facility] 10:48-0400 ([id number]) Heart rate 52 /min (no code) 60 - 100 /min 10-15-2018 no name [facility] 10:36-0400 ([id number]) Heart rate 53 /min (no code) 60 - 100 /min 10-14-2018 no name [facility] 10:21-0400 ([id number]) Heart rate 52 /min (no code) 60 - 100 /min 10-13-2018 no name [facility] 10:24-0400 ([id number]) Heart rate 51 /min (no code) 60 - 100 /min 10-12-2018 no name [facility] 10:04-0400 ([id number]) Heart rate 52 /min (no code) 60 - 100 /min 10-11-2018 no name [facility] 10:05-0400 ([id number]) Heart rate 51 /min (no code) 60 - 100 /min 10-10-2018 no name [facility] 10:05-0400 ([id number]) Heart rate 53 /min (no code) 60 - 100 /min 10-09-2018 no name [facility] 10:54-0400 ([id number]) Heart rate 58 /min (no code) 60 - 100 /min 10-09-2018 no name [facility] 10:52-0400 ([id number]) Heart rate 46 /min (LL) 60 - 100 /min 10-08-2018 no name [facility] 10:26-0400 ([id number]) Heart rate 53 /min (no code) 60 - 100 /min 10-07-2018 no name [facility] 11:08-0400 ([id number]) Heart rate 53 /min (no code) 60 - 100 /min 10-07-2018 no name [facility] 09:46-0400 ([id number]) Heart rate 47 /min (LL) 60 - 100 /min 10-05-2018 no name [facility] 10:20-0400 ([id number]) Heart rate 53 /min (no code) 60 - 100 /min 10-04-2018 no name [facility] 10:05-0400 ([id number]) Heart rate 48 /min (LL) 60 - 100 /min 10-03-2018 no name [facility] 09:57-0400 ([id number]) Heart rate 57 /min (no code) 60 - 100 /min 10-02-2018 no name [facility] 10:51-0400 ([id number]) Heart rate 47 /min (LL) 60 - 100 /min 10-01-2018 no name [facility] 10:11-0400 ([id number]) Heart rate 99 /min (no code) 60 - 100 /min 09-30-2018 no name [facility] 11:17-0400 ([id number]) Heart rate 49 /min (LL) 60 - 100 /min 09-30-2018 no name [facility] 09:51-0400 ([id number]) Heart rate 54 /min (no code) 60 - 100 /min 09-29-2018 no name [facility] 11:03-0400 ([id number]) Heart rate 52 /min (no code) 60 - 100 /min 09-28-2018 no name [facility] 09:13-0400 ([id number]) Heart rate 54 /min (no code) 60 - 100 /min 09-27-2018 no name [facility] 10:37-0400 ([id number]) Heart rate 50 /min (no code) 60 - 100 /min 09-26-2018 no name [facility] 09:04-0400 ([id number]) Heart rate 45 /min (LL) 60 - 100 /min 09-25-2018 no name [facility] 10:05-0400 ([id number]) Heart rate 55 /min (no code) 60 - 100 /min 09-24-2018 no name [facility] 10:21-0400 ([id number]) Heart rate 55 /min (no code) 60 - 100 /min 09-23-2018 no name [facility] 10:23-0400 ([id number]) Heart rate 50 /min (LL) 60 - 100 /min 09-22-2018 no name [facility] 12:08-0400 ([id number]) Heart rate 64 /min (no code) 60 - 100 /min 09-21-2018 no name [facility] 10:02-0400 ([id number]) Heart rate 50 /min (LL) 60 - 100 /min 09-20-2018 no name [facility] 11:32-0400 ([id number]) Heart rate 59 /min (no code) 60 - 100 /min 09-20-2018 no name [facility] 11:31-0400 ([id number]) Heart rate 52 /min (no code) 60 - 100 /min 09-18-2018 no name [facility] 11:16-0400 ([id number]) Heart rate 52 /min (no code) 60 - 100 /min 09-18-2018 no name [facility] 09:56-0400 ([id number]) Heart rate 87 /min (no code) 60 - 100 /min 09-17-2018 no name [facility] 10:49-0400 ([id number]) Heart rate 55 /min (no code) 60 - 100 /min 09-16-2018 no name [facility] 10:02-0400 ([id number]) Heart rate 46 /min (LL) 60 - 100 /min 09-15-2018 no name [facility] 12:44-0400 ([id number]) Heart rate 46 /min (LL) 60 - 100 /min 09-15-2018 no name [facility] 09:58-0400 ([id number]) Heart rate 50 /min (LL) 60 - 100 /min 09-14-2018 no name [facility] 10:29-0400 ([id number]) Heart rate 54 /min (no code) 60 - 100 /min 09-13-2018 no name [facility] 13:46-0400 ([id number]) Heart rate 54 /min (no code) 60 - 100 /min 09-13-2018 no name [facility] 09:56-0400 ([id number]) Heart rate 50 /min (LL) 60 - 100 /min 09-12-2018 no name [facility] 09:19-0400 ([id number]) Heart rate 54 /min (no code) 60 - 100 /min 09-11-2018 no name [facility] 10:16-0400 ([id number]) Heart rate 50 /min (LL) 60 - 100 /min 09-10-2018 no name [facility] 10:01-0400 ([id number]) Heart rate 48 /min (LL) 60 - 100 /min 09-09-2018 no name [facility] 10:26-0400 ([id number]) Heart rate 55 /min (no code) 60 - 100 /min 09-08-2018 no name [facility] 10:100400 ([id number]) Heart rate 52 /min (no code) 60 - 100 /min 09-07-2018 no name [facility] 10:170400 ([id number]) Heart rate 55 /min (no code) 60 - 100 /min 2018 no name [facility] 11:070400 ([id number]) Heart rate 49 /min (LL) 60 - 100 /min 09-04-2018 no name [facility] 10:240400 ([id number]) Heart rate 55 /min (no code) 60 - 100 /min 09-03-2018 no name [facility] 12:57-0400 ([id number]) Heart rate 57 /min (no code) 60 - 100 /min 09-02-2018 no name [facility] 11:03-0400 ([id number]) Heart rate 54 /min (no code) 60 - 100 /min 09-01-2018 no name [facility] 10:27-0400 ([id number]) Heart rate 46 /min (LL) 60 - 100 /min 08-30-2018 no name [facility] 10:240400 ([id number]) Heart rate 49 /min (LL) 60 - 100 /min 08-28-2018 no name [facility] 11:160400 ([id number]) Heart rate 54 /min (no code) 60 - 100 /min 08-27-2018 no name [facility] 11:23-0400 ([id number]) Heart rate 48 /min (LL) 60 - 100 /min 08-26-2018 no name [facility] 11:10-0400 ([id number]) Heart rate 51 /min (no code) 60 - 100 /min 08-25-2018 no name [facility] 16:44-0400 ([id number]) Heart rate 51 /min (no code) 60 - 100 /min 08-24-2018 no name [facility] 10:16-0400 ([id number]) Heart rate 52 /min (no code) 60 - 100 /min 08-23-2018 no name [facility] 16:25-0400 ([id number]) Heart rate 57 /min (no code) 60 - 100 /min 08-23-2018 no name [facility] 14:41-0400 ([id number]) Heart rate 67 /min (no code) 60 - 100 /min 08-23-2018 no name [facility] 10:28-0400 ([id number]) Heart rate 47 /min (LL) 60 - 100 /min 08-22-2018 no name [facility] 09:57-0400 ([id number]) Heart rate 46 /min (LL) 60 - 100 /min 08-21-2018 no name [facility] 11:03-0400 ([id number]) Heart rate 45 /min (LL) 60 - 100 /min 08-13-2018 no name [facility] 11:31-0400 ([id number]) Heart rate 57 /min (no code) 60 - 100 /min 08-12-2018 no name [facility] 10:22-0400 ([id number]) Heart rate 56 /min (no code) 60 - 100 /min 08-11-2018 no name [facility] 11:02-0400 ([id number]) Heart rate 55 /min (no code) 60 - 100 /min 08-11-2018 no name [facility] 11:00-0400 ([id number]) Heart rate 50 /min (LL) 60 - 100 /min 08-10-2018 no name [facility] 10:17-0400 ([id number]) Heart rate 63 /min (no code) 60 - 100 /min 08-09-2018 no name [facility] 10:16-0400 ([id number]) Heart rate 53 /min (no code) 60 - 100 /min 08-08-2018 no name [facility] 09:40-0400 ([id number]) Heart rate 53 /min (no code) 60 - 100 /min 08-07-2018 no name [facility] 09:48-0400 ([id number]) Heart rate 49 /min (LL) 60 - 100 /min 08-06-2018 no name [facility] 10:34-0400 ([id number]) Heart rate 52 /min (no code) 60 - 100 /min 08-05-2018 no name [facility] 11:03-0400 ([id number]) Heart rate 58 /min (no code) 60 - 100 /min 08-04-2018 no name [facility] 10:23-0400 ([id number]) Heart rate 49 /min (LL) 60 - 100 /min 08-03-2018 no name [facility] 10:11-0400 ([id number]) Heart rate 51 /min (no code) 60 - 100 /min 08-02-2018 no name [facility] 11:10-0400 ([id number]) Heart rate 51 /min (no code) 60 - 100 /min 08-02-2018 no name [facility] 09:26-0400 ([id number]) Heart rate 54 /min (no code) 60 - 100 /min 08-01-2018 no name [facility] 09:32-0400 ([id number]) Heart rate 53 /min (no code) 60 - 100 /min 07-31-2018 no name [facility] 15:14-0400 ([id number]) Heart rate 53 /min (no code) 60 - 100 /min 07-31-2018 no name [facility] 10:04-0400 ([id number]) Heart rate 52 /min (no code) 60 - 100 /min 07-30-2018 no name [facility] 10:57-0400 ([id number]) Heart rate 58 /min (no code) 60 - 100 /min 07-30-2018 no name [facility] 10:53-0400 ([id number]) Heart rate 80 /min (no code) 60 - 100 /min 07-29-2018 no name [facility] 14:09-0400 ([id number]) Heart rate 80 /min (no code) 60 - 100 /min 07-29-2018 no name [facility] 09:29-0400 ([id number]) Heart rate 50 /min (LL) 60 - 100 /min 07-28-2018 no name [facility] 10:09-0400 ([id number]) Heart rate 56 /min (no code) 60 - 100 /min 07-27-2018 no name [facility] 10:35-0400 ([id number]) Heart rate 70 /min (no code) 60 - 100 /min 07-26-2018 no name [facility] 10:35-0400 ([id number]) Heart rate 54 /min (no code) 60 - 100 /min 07-24-2018 no name [facility] 13:47-0400 ([id number]) Heart rate 53 /min (no code) 60 - 100 /min 07-24-2018 no name [facility] 10:57-0400 ([id number]) Heart rate 57 /min (no code) 60 - 100 /min 07-24-2018 no name [facility] 10:53-0400 ([id number]) Heart rate 56 /min (no code) 60 - 100 /min 07-23-2018 no name [facility] 10:51-0400 ([id number]) Heart rate 54 /min (no code) 60 - 100 /min 07-22-2018 no name [facility] 11:04-0400 ([id number]) Heart rate 55 /min (no code) 60 - 100 /min 07-21-2018 no name [facility] 11:34-0400 ([id number]) Heart rate 62 /min (no code) 60 - 100 /min 07-20-2018 no name [facility] 14:03-0400 ([id number]) Heart rate 62 /min (no code) 60 - 100 /min 07-20-2018 no name [facility] 09:55-0400 ([id number]) Heart rate 57 /min (no code) 60 - 100 /min 07-19-2018 no name [facility] 14:21-0400 ([id number]) Heart rate 57 /min (no code) 60 - 100 /min 07-19-2018 no name [facility] 09:49-0400 ([id number]) Heart rate 58 /min (no code) 60 - 100 /min 07-18-2018 no name [facility] 09:10-0400 ([id number]) Heart rate 59 /min (no code) 60 - 100 /min 07-17-2018 no name [facility] 10:36-0400 ([id number]) Heart rate 48 /min (LL) 60 - 100 /min 07-16-2018 no name [facility] 10:19-0400 ([id number]) Heart rate 57 /min (no code) 60 - 100 /min 07-15-2018 no name [facility] 10:25-0400 ([id number]) Heart rate 56 /min (no code) 60 - 100 /min 07-14-2018 no name [facility] 16:42-0400 ([id number]) Heart rate 56 /min (no code) 60 - 100 /min 07-13-2018 no name [facility] 11:40-0400 ([id number]) Heart rate 62 /min (no code) 60 - 100 /min 07-12-2018 no name [facility] 13:40-0400 ([id number]) Heart rate 54 /min (no code) 60 - 100 /min 07-10-2018 no name [facility] 10:43-0400 ([id number]) Heart rate 51 /min (no code) 60 - 100 /min 07-09-2018 no name [facility] 11:41-0400 ([id number]) Heart rate 58 /min (no code) 60 - 100 /min 07-08-2018 no name [facility] 11:42-0400 ([id number]) Heart rate 50 /min (LL) 60 - 100 /min 07-07-2018 no name [facility] 17:02-0400 ([id number]) Heart rate 52 /min (no code) 60 - 100 /min 07-04-2018 no name [facility] 16:13-0400 ([id number]) Heart rate 52 /min (no code) 60 - 100 /min 07-03-2018 no name [facility] 10:09-0400 ([id number]) Heart rate 49 /min (LL) 60 - 100 /min 07-02-2018 no name [facility] 11:20-0400 ([id number]) Heart rate 52 /min (no code) 60 - 100 /min 07-01-2018 no name [facility] 10:13-0400 ([id number]) Heart rate 54 /min (no code) 60 - 100 /min 06-30-2018 no name [facility] 10:36-0400 ([id number]) Heart rate 52 /min (no code) 60 - 100 /min 06-29-2018 no name [facility] 11:11-0400 ([id number]) Heart rate 48 /min (LL) 60 - 100 /min 06-28-2018 no name [facility] 10:37-0400 ([id number]) Heart rate 55 /min (no code) 60 - 100 /min 06-27-2018 no name [facility] 10:06-0400 ([id number]) Heart rate 60 /min (no code) 60 - 100 /min 06-26-2018 no name [facility] 10:27-0400 ([id number]) Heart rate 55 /min (no code) 60 - 100 /min 06-25-2018 no name [facility] 10:21-0400 ([id number]) Heart rate 47 /min (LL) 60 - 100 /min 06-24-2018 no name [facility] 11:02-0400 ([id number]) Heart rate 47 /min (LL) 60 - 100 /min 06-23-2018 no name [facility] 10:42-0400 ([id number]) Heart rate 57 /min (no code) 60 - 100 /min 06-22-2018 no name [facility] 15:35-0400 ([id number]) Heart rate 50 /min (LL) 60 - 100 /min 06-22-2018 no name [facility] 13:35-0400 ([id number]) Heart rate 50 /min (LL) 60 - 100 /min 06-22-2018 no name [facility] 10:34-0400 ([id number]) Heart rate 47 /min (LL) 60 - 100 /min 06-21-2018 no name [facility] 12:47-0400 ([id number]) Heart rate 50 /min (LL) 60 - 100 /min 06-20-2018 no name [facility] 09:29-0400 ([id number]) Heart rate 51 /min (no code) 60 - 100 /min 06-19-2018 no name [facility] 10:43-0400 ([id number]) Heart rate 50 /min (LL) 60 - 100 /min 06-18-2018 no name [facility] 11:21-0400 ([id number]) Heart rate 48 /min (LL) 60 - 100 /min 06-17-2018 no name [facility] 09:45-0400 ([id number]) Heart rate 45 /min (LL) 60 - 100 /min 06-16-2018 no name [facility] 10:12-0400 ([id number]) Heart rate 49 /min (LL) 60 - 100 /min 06-15-2018 no name [facility] 14:43-0400 ([id number]) Heart rate 49 /min (LL) 60 - 100 /min 06-15-2018 no name [facility] 09:40-0400 ([id number]) Heart rate 49 /min (LL) 60 - 100 /min 06-14-2018 no name [facility] 10:40-0400 ([id number]) Heart rate 46 /min (LL) 60 - 100 /min 06-13-2018 no name [facility] 09:54-0400 ([id number]) Heart rate 51 /min (no code) 60 - 100 /min 06-12-2018 no name [facility] 10:13-0400 ([id number]) Heart rate 52 /min (no code) 60 - 100 /min 06-11-2018 no name [facility] 11:20-0400 ([id number]) Heart rate 55 /min (no code) 60 - 100 /min 06-10-2018 no name [facility] 10:17-0400 ([id number]) Heart rate 42 /min (LL) 60 - 100 /min 06-09-2018 no name [facility] 12:41-0400 ([id number]) Heart rate 49 /min (LL) 60 - 100 /min 06-09-2018 no name [facility] 12:40-0400 ([id number]) Heart rate 47 /min (LL) 60 - 100 /min 06-08-2018 no name [facility] 16:50-0400 ([id number]) Heart rate 46 /min (LL) 60 - 100 /min 06-07-2018 no name [facility] 13:38-0400 ([id number]) Heart rate 48 /min (LL) 60 - 100 /min 06-05-2018 no name [facility] 11:32-0400 ([id number]) Heart rate 54 /min (no code) 60 - 100 /min 06-04-2018 no name [facility] 12:06-0400 ([id number]) Heart rate 49 /min (LL) 60 - 100 /min 06-04-2018 no name [facility] 12:04-0400 ([id number]) Heart rate 52 /min (no code) 60 - 100 /min 06-03-2018 no name [facility] 11:43-0400 ([id number]) Heart rate 52 /min (no code) 60 - 100 /min 06-03-2018 no name [facility] 10:29-0400 ([id number]) Heart rate 46 /min (LL) 60 - 100 /min 06-02-2018 no name [facility] 10:51-0400 ([id number]) Heart rate 59 /min (no code) 60 - 100 /min 06-01-2018 no name [facility] 15:08-0400 ([id number]) Heart rate 59 /min (no code) 60 - 100 /min 05-31-2018 no name [facility] 14:32-0400 ([id number]) Heart rate 59 /min (no code) 60 - 100 /min 05-30-2018 no name [facility] 10:03-0400 ([id number]) Heart rate 54 /min (no code) 60 - 100 /min 05-29-2018 no name [facility] 11:46-0500 ([id number]) Heart rate 49 /min (LL) 60 - 100 /min 05-28-2018 no name [facility] 10:53-0500 ([id number]) Heart rate 52 /min (no code) 60 - 100 /min 05-27-2018 no name [facility] 09:23-0500 ([id number]) Heart rate 57 /min (no code) 60 - 100 /min 05-26-2018 no name [facility] 10:35-0500 ([id number]) Heart rate 98 /min (no code) 60 - 100 /min 05-26-2018 no name [facility] 10:33-0500 ([id number]) Heart rate 56 /min (no code) 60 - 100 /min 05-26-2018 no name [facility] 09:13-0500 ([id number]) Heart rate 47 /min (LL) 60 - 100 /min 05-24-2018 no name [facility] 10:20-0500 ([id number]) Heart rate 48 /min (LL) 60 - 100 /min 05-22-2018 no name [facility] 10:26-0500 ([id number]) Heart rate 47 /min (LL) 60 - 100 /min 05-22-2018 no name [facility] 10:23-0500 ([id number]) Heart rate 55 /min (no code) 60 - 100 /min 05-21-2018 no name [facility] 16:40-0500 ([id number]) Heart rate 45 /min (LL) 60 - 100 /min 05-19-2018 no name [facility] 10:33-0500 ([id number]) Heart rate 52 /min (no code) 60 - 100 /min 05-19-2018 no name [facility] 10:32-0500 ([id number]) Heart rate 48 /min (LL) 60 - 100 /min 05-18-2018 no name [facility] 10:47-0500 ([id number]) Heart rate 42 /min (LL) 60 - 100 /min 05-17-2018 no name [facility] 11:50-0500 ([id number]) Heart rate 56 /min (no code) 60 - 100 /min 05-15-2018 no name [facility] 16:35-0500 ([id number]) Heart rate 49 /min (LL) 60 - 100 /min 05-14-2018 no name [facility] 10:36-0500 ([id number]) Heart rate 48 /min (LL) 60 - 100 /min 05-12-2018 no name [facility] 10:16-0500 ([id number]) Heart rate 47 /min (LL) 60 - 100 /min 05-11-2018 no name [facility] 14:04-0500 ([id number]) Heart rate 47 /min (LL) 60 - 100 /min 05-10-2018 no name [facility] 14:02-0500 ([id number]) Heart rate 45 /min (LL) 60 - 100 /min 05-09-2018 no name [facility] 09:48-0500 ([id number]) Heart rate 52 /min (no code) 60 - 100 /min 05-08-2018 no name [facility] 10:31-0500 ([id number]) Heart rate 55 /min (no code) 60 - 100 /min 05-07-2018 no name [facility] 11:41-0500 ([id number]) Heart rate 47 /min (LL) 60 - 100 /min 05-06-2018 no name [facility] 10:40-0500 ([id number]) Heart rate 45 /min (LL) 60 - 100 /min 05-05-2018 no name [facility] 10:44-0500 ([id number]) Heart rate 52 /min (no code) 60 - 100 /min 05-04-2018 no name [facility] 14:01-0500 ([id number]) Heart rate 51 /min (no code) 60 - 100 /min 05-03-2018 no name [facility] 13:53-0500 ([id number]) Heart rate 51 /min (no code) 60 - 100 /min 05-03-2018 no name [facility] 10:51-0500 ([id number]) Heart rate 57 /min (no code) 60 - 100 /min 05-03-2018 no name [facility] 10:49-0500 ([id number]) Heart rate 54 /min (no code) 60 - 100 /min 05-02-2018 no name [facility] 09:21-0500 ([id number]) Heart rate 50 /min (LL) 60 - 100 /min 05-01-2018 no name [facility] 12:20-0500 ([id number]) Heart rate 50 /min (LL) 60 - 100 /min 05-01-2018 no name [facility] 09:57-0500 ([id number]) Heart rate 53 /min (no code) 60 - 100 /min 04-29-2018 no name [facility] 11:09-0500 ([id number]) Heart rate 52 /min (no code) 60 - 100 /min 04-28-2018 no name [facility] 14:03-0500 ([id number]) Heart rate 52 /min (no code) 60 - 100 /min 04-28-2018 no name [facility] 10:46-0500 ([id number]) Heart rate 49 /min (LL) 60 - 100 /min 04-27-2018 no name [facility] 13:55-0500 ([id number]) Heart rate 46 /min (LL) 60 - 100 /min 04-27-2018 no name [facility] 09:30-0500 ([id number]) Heart rate 47 /min (LL) 60 - 100 /min 04-26-2018 no name [facility] 12:58-0500 ([id number]) Heart rate 47 /min (LL) 60 - 100 /min 04-26-2018 no name [facility] 10:00-0500 ([id number]) Heart rate 47 /min (LL) 60 - 100 /min 04-24-2018 no name [facility] 10:21-0500 ([id number]) Heart rate 49 /min (LL) 60 - 100 /min 04-23-2018 no name [facility] 10:39-0500 ([id number]) Heart rate 48 /min (LL) 60 - 100 /min 04-22-2018 no name [facility] 12:19-0500 ([id number]) Heart rate 55 /min (no code) 60 - 100 /min 04-21-2018 no name [facility] 13:09-0500 ([id number]) Heart rate 55 /min (no code) 60 - 100 /min 04-20-2018 no name [facility] 11:16-0500 ([id number]) Heart rate 45 /min (LL) 60 - 100 /min 04-19-2018 no name [facility] 10:25-0500 ([id number]) Heart rate 47 /min (LL) 60 - 100 /min 04-18-2018 no name [facility] 09:55-0500 ([id number]) Heart rate 52 /min (no code) 60 - 100 /min 04-17-2018 no name [facility] 10:18-0500 ([id number]) Heart rate 50 /min (LL) 60 - 100 /min 04-16-2018 no name [facility] 09:27-0500 ([id number]) Heart rate 53 /min (no code) 60 - 100 /min 04-15-2018 no name [facility] 12:31-0500 ([id number]) Heart rate 49 /min (LL) 60 - 100 /min 04-15-2018 no name [facility] 09:57-0500 ([id number]) Heart rate 49 /min (LL) 60 - 100 /min 04-14-2018 no name [facility] 10:41-0500 ([id number]) Heart rate 51 /min (no code) 60 - 100 /min 04-13-2018 no name [facility] 10:30-0500 ([id number]) Heart rate 46 /min (LL) 60 - 100 /min 04-12-2018 no name [facility] 17:53-0500 ([id number]) Heart rate 47 /min (LL) 60 - 100 /min 04-10-2018 no name [facility] 10:17-0500 ([id number]) Heart rate 57 /min (no code) 60 - 100 /min 04-09-2018 no name [facility] 15:10-0500 ([id number]) Heart rate 57 /min (no code) 60 - 100 /min 04-08-2018 no name [facility] 10:08-0500 ([id number]) Heart rate 58 /min (no code) 60 - 100 /min 04-08-2018 no name [facility] 10:05-0500 ([id number]) Heart rate 99 /min (no code) 60 - 100 /min 04-07-2018 no name [facility] 10:49-0500 ([id number]) Heart rate 47 /min (LL) 60 - 100 /min 04-05-2018 no name [facility] 10:22-0500 ([id number]) Heart rate 51 /min (no code) 60 - 100 /min 04-04-2018 no name [facility] 09:54-0500 ([id number]) Heart rate 52 /min (no code) 60 - 100 /min 04-03-2018 no name [facility] 11:20-0500 ([id number]) Heart rate 50 /min (LL) 60 - 100 /min 04-02-2018 no name [facility] 11:23-0500 ([id number]) Heart rate 46 /min (LL) 60 - 100 /min 03-31-2018 no name [facility] 09:23-0500 ([id number]) Heart rate 47 /min (LL) 60 - 100 /min 03-30-2018 no name [facility] 13:55-0500 ([id number]) Heart rate 55 /min (no code) 60 - 100 /min 03-29-2018 no name [facility] 14:39-0500 ([id number]) Heart rate 55 /min (no code) 60 - 100 /min 03-27-2018 no name [facility] 10:19-0500 ([id number]) Heart rate 58 /min (no code) 60 - 100 /min 03-26-2018 no name [facility] 10:17-0500 ([id number]) Heart rate 55 /min (no code) 60 - 100 /min 03-25-2018 no name [facility] 10:23-0500 ([id number]) Heart rate 58 /min (no code) 60 - 100 /min 03-24-2018 no name [facility] 17:17-0500 ([id number]) Heart rate 51 /min (no code) 60 - 100 /min 03-20-2018 no name [facility] 09:41-0500 ([id number]) Heart rate 52 /min (no code) 60 - 100 /min 03-19-2018 no name [facility] 09:44-0500 ([id number]) Heart rate 55 /min (no code) 60 - 100 /min 03-18-2018 no name [facility] 09:57-0500 ([id number]) Heart rate 55 /min (no code) 60 - 100 /min 03-17-2018 no name [facility] 09:41-0500 ([id number]) Heart rate 52 /min (no code) 60 - 100 /min 03-16-2018 no name [facility] 09:59-0500 ([id number]) Heart rate 50 /min (LL) 60 - 100 /min 03-15-2018 no name [facility] 10:02-0500 ([id number]) Heart rate 55 /min (no code) 60 - 100 /min 03-14-2018 no name [facility] 09:10-0500 ([id number]) Heart rate 53 /min (no code) 60 - 100 /min 03-13-2018 no name [facility] 09:42-0500 ([id number]) Heart rate 55 /min (no code) 60 - 100 /min 03-12-2018 no name [facility] 12:47-0500 ([id number]) Heart rate 61 /min (no code) 60 - 100 /min 03-12-2018 no name [facility] 12:45-0500 ([id number]) Heart rate 61 /min (no code) 60 - 100 /min 03-12-2018 no name [facility] 08:23-0500 ([id number]) Heart rate 55 /min (no code) 60 - 100 /min 03-11-2018 no name [facility] 09:20-0500 ([id number]) Heart rate 57 /min (no code) 60 - 100 /min 03-10-2018 no name [facility] 11:24-0500 ([id number]) Heart rate 57 /min (no code) 60 - 100 /min 03-10-2018 no name [facility] 09:32-0500 ([id number]) Heart rate 59 /min (no code) 60 - 100 /min 03-09-2018 no name [facility] 14:19-0500 ([id number]) Heart rate 59 /min (no code) 60 - 100 /min 03-09-2018 no name [facility] 08:54-0500 ([id number]) Heart rate 51 /min (no code) 60 - 100 /min 03-08-2018 no name [facility] 13:45-0500 ([id number]) Heart rate 51 /min (no code) 60 - 100 /min 03-08-2018 no name [facility] 09:00-0500 ([id number]) Heart rate 52 /min (no code) 60 - 100 /min 03-07-2018 no name [facility] 08:52-0500 ([id number]) Heart rate 55 /min (no code) 60 - 100 /min 03-06-2018 no name [facility] 13:01-0500 ([id number]) Heart rate 55 /min (no code) 60 - 100 /min 03-06-2018 no name [facility] 09:49-0500 ([id number]) Heart rate 58 /min (no code) 60 - 100 /min 03-05-2018 no name [facility] 13:02-0500 ([id number]) Heart rate 58 /min (no code) 60 - 100 /min 03-05-2018 no name [facility] 09:54-0500 ([id number]) Heart rate 58 /min (no code) 60 - 100 /min 03-04-2018 no name [facility] 08:31-0500 ([id number]) Heart rate 46 /min (LL) 60 - 100 /min 03-03-2018 no name [facility] 12:28-0500 ([id number]) Heart rate 46 /min (LL) 60 - 100 /min 03-03-2018 no name [facility] 08:54-0500 ([id number]) Heart rate 63 /min (no code) 60 - 100 /min 03-02-2018 no name [facility] 13:14-0500 ([id number]) Heart rate 63 /min (no code) 60 - 100 /min 03-02-2018 no name [facility] 08:46-0500 ([id number]) Heart rate 53 /min (no code) 60 - 100 /min 03-01-2018 no name [facility] 11:24-0500 ([id number]) Heart rate 53 /min (no code) 60 - 100 /min 03-01-2018 no name [facility] 09:48-0500 ([id number]) Heart rate 54 /min (no code) 60 - 100 /min 02-27-2018 no name [facility] 11:39-0500 ([id number]) Heart rate 54 /min (no code) 60 - 100 /min 02-27-2018 no name [facility] 09:13-0500 ([id number]) Heart rate 50 /min (LL) 60 - 100 /min 02-26-2018 no name [facility] 10:22-0500 ([id number]) Heart rate 57 /min (no code) 60 - 100 /min 02-25-2018 no name [facility] 12:50-0500 ([id number]) Heart rate 57 /min (no code) 60 - 100 /min 02-25-2018 no name [facility] 09:49-0500 ([id number]) Heart rate 51 /min (no code) 60 - 100 /min 02-24-2018 no name [facility] 09:06-0500 ([id number]) Heart rate 47 /min (LL) 60 - 100 /min 02-23-2018 no name [facility] 10:04-0500 ([id number]) Heart rate 55 /min (no code) 60 - 100 /min 02-22-2018 no name [facility] 09:37-0500 ([id number]) Heart rate 52 /min (no code) 60 - 100 /min 02-22-2018 no name [facility] 09:35-0500 ([id number]) Heart rate 49 /min (LL) 60 - 100 /min 02-21-2018 no name [facility] 10:24-0500 ([id number]) Heart rate 49 /min (LL) 60 - 100 /min 02-20-2018 no name [facility] 09:37-0500 ([id number]) Heart rate 53 /min (no code) 60 - 100 /min 02-19-2018 no name [facility] 09:49-0500 ([id number]) Heart rate 49 /min (LL) 60 - 100 /min 02-18-2018 no name [facility] 09:32-0500 ([id number]) Heart rate 55 /min (no code) 60 - 100 /min 02-17-2018 no name [facility] 14:47-0500 ([id number]) Heart rate 55 /min (no code) 60 - 100 /min 02-17-2018 no name [facility] 08:34-0500 ([id number]) Heart rate 52 /min (no code) 60 - 100 /min 02-16-2018 no name [facility] 14:52-0500 ([id number]) Heart rate 52 /min (no code) 60 - 100 /min 02-16-2018 no name [facility] 09:48-0500 ([id number]) Heart rate 47 /min (LL) 60 - 100 /min 02-15-2018 no name [facility] 14:17-0500 ([id number]) Heart rate 49 /min (LL) 60 - 100 /min 02-15-2018 no name [facility] 09:36-0500 ([id number]) Heart rate 50 /min (LL) 60 - 100 /min 02-14-2018 no name [facility] 08:53-0500 ([id number]) Heart rate 67 /min (no code) 60 - 100 /min 02-12-2018 no name [facility] 14:09-0500 ([id number]) Heart rate 67 /min (no code) 60 - 100 /min 02-12-2018 no name [facility] 09:34-0500 ([id number]) Heart rate 66 /min (no code) 60 - 100 /min 02-11-2018 no name [facility] 20:30-0500 ([id number]) Heart rate 52 /min (no code) 60 - 100 /min 02-11-2018 no name [facility] 10:09-0500 ([id number]) Heart rate 51 /min (no code) 60 - 100 /min 02-10-2018 no name [facility] 14:35-0500 ([id number]) Heart rate 51 /min (no code) 60 - 100 /min 02-10-2018 no name [facility] 09:32-0500 ([id number]) Heart rate 57 /min (no code) 60 - 100 /min 02-09-2018 no name [facility] 14:42-0500 ([id number]) Heart rate 57 /min (no code) 60 - 100 /min 02-09-2018 no name [facility] 09:52-0500 ([id number]) Heart rate 60 /min (no code) 60 - 100 /min 02-08-2018 no name [facility] 14:04-0500 ([id number]) Heart rate 60 /min (no code) 60 - 100 /min 02-08-2018 no name [facility] 08:10-0500 ([id number]) Heart rate 56 /min (no code) 60 - 100 /min 02-07-2018 no name [facility] 08:34-0500 ([id number]) Heart rate 59 /min (no code) 60 - 100 /min 02-06-2018 no name [facility] 09:16-0500 ([id number]) Heart rate 54 /min (no code) 60 - 100 /min 02-05-2018 no name [facility] 10:04-0500 ([id number]) Heart rate 54 /min (no code) 60 - 100 /min 02-04-2018 no name [facility] 09:28-0500 ([id number]) Heart rate 58 /min (no code) 60 - 100 /min 02-03-2018 no name [facility] 14:15-0500 ([id number]) Heart rate 58 /min (no code) 60 - 100 /min 02-03-2018 no name [facility] 09:47-0500 ([id number]) Heart rate 47 /min (LL) 60 - 100 /min 02-02-2018 no name [facility] 14:19-0500 ([id number]) Heart rate 46 /min (LL) 60 - 100 /min 02-02-2018 no name [facility] 14:14-0500 ([id number]) Heart rate 46 /min (LL) 60 - 100 /min 02-02-2018 no name [facility] 09:44-0500 ([id number]) Heart rate 52 /min (no code) 60 - 100 /min 02-01-2018 no name [facility] 12:10-0500 ([id number]) Heart rate 54 /min (no code) 60 - 100 /min 02-01-2018 no name [facility] 12:06-0500 ([id number]) Heart rate 54 /min (no code) 60 - 100 /min 02-01-2018 no name [facility] 09:43-0500 ([id number]) Heart rate 57 /min (no code) 60 - 100 /min 01-31-2018 no name [facility] 08:21-0500 ([id number]) Heart rate 48 /min (LL) 60 - 100 /min 01-30-2018 no name [facility] 10:45-0500 ([id number]) Heart rate 49 /min (LL) 60 - 100 /min 01-30-2018 no name [facility] 10:42-0500 ([id number]) Heart rate 46 /min (LL) 60 - 100 /min 01-29-2018 no name [facility] 10:22-0500 ([id number]) Heart rate 47 /min (LL) 60 - 100 /min 01-28-2018 no name [facility] 08:39-0500 ([id number]) Heart rate 64 /min (no code) 60 - 100 /min 01-27-2018 no name [facility] 10:15-0500 ([id number]) Heart rate 47 /min (LL) 60 - 100 /min 01-26-2018 no name [facility] 14:14-0500 ([id number]) Heart rate 47 /min (LL) 60 - 100 /min 01-26-2018 no name [facility] 09:58-0500 ([id number]) Heart rate 49 /min (LL) 60 - 100 /min 01-25-2018 no name [facility] 13:01-0500 ([id number]) Heart rate 49 /min (LL) 60 - 100 /min 01-25-2018 no name [facility] 08:58-0500 ([id number]) Heart rate 55 /min (no code) 60 - 100 /min 01-24-2018 no name [facility] 08:28-0500 ([id number]) Heart rate 50 /min (LL) 60 - 100 /min 01-23-2018 no name [facility] 10:33-0400 ([id number]) Heart rate 50 /min (LL) 60 - 100 /min 01-22-2018 no name [facility] 10:08-0400 ([id number]) Heart rate 57 /min (no code) 60 - 100 /min 01-21-2018 no name [facility] 11:10-0400 ([id number]) Heart rate 52 /min (no code) 60 - 100 /min 01-20-2018 no name [facility] 09:36-0400 ([id number]) Heart rate 46 /min (LL) 60 - 100 /min 01-19-2018 no name [facility] 14:27-0400 ([id number]) Heart rate 48 /min (LL) 60 - 100 /min 01-14-2018 no name [facility] 09:05-0400 ([id number]) Heart rate 49 /min (LL) 60 - 100 /min 01-13-2018 no name [facility] 15:48-0400 ([id number]) Heart rate 52 /min (no code) 60 - 100 /min 01-12-2018 no name [facility] 14:07-0400 ([id number]) Heart rate 52 /min (no code) 60 - 100 /min 01-12-2018 no name [facility] 09:02-0400 ([id number]) Heart rate 50 /min (LL) 60 - 100 /min 01-11-2018 no name [facility] 10:22-0400 ([id number]) Heart rate 53 /min (no code) 60 - 100 /min 01-10-2018 no name [facility] 10:46-0400 ([id number]) Heart rate 54 /min (no code) 60 - 100 /min 01-10-2018 no name [facility] 09:14-0400 ([id number]) Heart rate 48 /min (LL) 60 - 100 /min 01-09-2018 no name [facility] 09:41-0400 ([id number]) Heart rate 46 /min (LL) 60 - 100 /min 01-08-2018 no name [facility] 17:04-0400 ([id number]) Heart rate 46 /min (LL) 60 - 100 /min 01-08-2018 no name [facility] 09:28-0400 ([id number]) Heart rate 52 /min (no code) 60 - 100 /min 01-06-2018 no name [facility] 13:30-0400 ([id number]) Heart rate 52 /min (no code) 60 - 100 /min 01-06-2018 no name [facility] 08:59-0400 ([id number]) Heart rate 49 /min (LL) 60 - 100 /min 01-06-2018 no name [facility] 08:55-0400 ([id number]) Heart rate 51 /min (no code) 60 - 100 /min 01-05-2018 no name [facility] 09:55-0400 ([id number]) Heart rate 58 /min (no code) 60 - 100 /min 01-04-2018 no name [facility] 10:15-0400 ([id number]) Heart rate 52 /min (no code) 60 - 100 /min 12-29-2017 no name [facility] 12:08-0400 ([id number]) Oxygen 96 % (no code) 95 - 100 % 06-27-2019 no name [facility] saturation in 10:03-0400 ([id number]) Arterial blood by Pulse oximetry Oxygen 98 % (no code) 95 - 100 % 06-24-2019 no name [facility] saturation in 10:56-0400 ([id number]) Arterial blood by Pulse oximetry Oxygen 98 % (no code) 95 - 100 % 06-22-2019 no name [facility] saturation in 06:03-0400 ([id number]) Arterial blood by Pulse oximetry Oxygen 97 % (no code) 95 - 100 % 06-21-2019 no name [facility] saturation in 09:22-0400 ([id number]) Arterial blood by Pulse oximetry Oxygen 97 % (no code) 95 - 100 % 06-20-2019 no name [facility] saturation in 09:19-0400 ([id number]) Arterial blood by Pulse oximetry Oxygen 99 % (no code) 95 - 100 % 06-18-2019 no name [facility] saturation in 09:28-0400 ([id number]) Arterial blood by Pulse oximetry Oxygen 99 % (no code) 95 - 100 % 06-17-2019 no name [facility] saturation in 06:59-0400 ([id number]) Arterial blood by Pulse oximetry Oxygen 99 % (no code) 95 - 100 % 06-15-2019 no name [facility] saturation in 05:42-0400 ([id number]) Arterial blood by Pulse oximetry Oxygen 99 % (no code) 95 - 100 % 06-14-2019 no name [facility] saturation in 10:48-0400 ([id number]) Arterial blood by Pulse oximetry Oxygen 98 % (no code) 95 - 100 % 06-13-2019 no name [facility] saturation in 09:53-0400 ([id number]) Arterial blood by Pulse oximetry Oxygen 98 % (no code) 95 - 100 % 06-10-2019 no name [facility] saturation in 05:16-0400 ([id number]) Arterial blood by Pulse oximetry Oxygen 98 % (no code) 95 - 100 % 06-08-2019 no name [facility] saturation in 07:59-0400 ([id number]) Arterial blood by Pulse oximetry Oxygen 98 % (no code) 95 - 100 % 06-07-2019 no name [facility] saturation in 10:10-0400 ([id number]) Arterial blood by Pulse oximetry Oxygen 93 % (no code) 95 - 100 % 06-06-2019 no name [facility] saturation in 08:43-0400 ([id number]) Arterial blood by Pulse oximetry Oxygen 98 % (no code) 95 - 100 % 06-03-2019 no name [facility] saturation in 06:39-0400 ([id number]) Arterial blood by Pulse oximetry Oxygen 98 % (no code) 95 - 100 % 06-01-2019 no name [facility] saturation in 06:07-0400 ([id number]) Arterial blood by Pulse oximetry Oxygen 96 % (no code) 95 - 100 % 05-31-2019 no name [facility] saturation in 09:01-0400 ([id number]) Arterial blood by Pulse oximetry Oxygen 99 % (no code) 95 - 100 % 05-30-2019 no name [facility] saturation in 09:14-0400 ([id number]) Arterial blood by Pulse oximetry Oxygen 95 % (no code) 95 - 100 % 05-28-2019 no name [facility] saturation in 04:31-0500 ([id number]) Arterial blood by Pulse oximetry Oxygen 98 % (no code) 95 - 100 % 05-27-2019 no name [facility] saturation in 05:51-0500 ([id number]) Arterial blood by Pulse oximetry Oxygen 100 % (no code) 95 - 100 % 05-26-2019 no name [facility] saturation in 05:58-0500 ([id number]) Arterial blood by Pulse oximetry Oxygen 93 % (no code) 95 - 100 % 05-25-2019 no name [facility] saturation in 04:47-0500 ([id number]) Arterial blood by Pulse oximetry Oxygen 99 % (no code) 95 - 100 % 05-24-2019 no name [facility] saturation in 04:03-0500 ([id number]) Arterial blood by Pulse oximetry Oxygen 97 % (no code) 95 - 100 % 05-23-2019 no name [facility] saturation in 04:44-0500 ([id number]) Arterial blood by Pulse oximetry Oxygen 79 % (LL) 95 - 100 % 05-23-2019 no name [facility] saturation in 03:50-0500 ([id number]) Arterial blood by Pulse oximetry Oxygen 96 % (no code) 95 - 100 % 05-21-2019 no name [facility] saturation in 07:55-0500 ([id number]) Arterial blood by Pulse oximetry Oxygen 93 % (no code) 95 - 100 % 05-20-2019 no name [facility] saturation in 05:13-0500 ([id number]) Arterial blood by Pulse oximetry Oxygen 99 % (no code) 95 - 100 % 05-19-2019 no name [facility] saturation in 04:30-0500 ([id number]) Arterial blood by Pulse oximetry Oxygen 100 % (no code) 95 - 100 % 05-18-2019 no name [facility] saturation in 04:08-0500 ([id number]) Arterial blood by Pulse oximetry Oxygen 98 % (no code) 95 - 100 % 05-17-2019 no name [facility] saturation in 06:44-0500 ([id number]) Arterial blood by Pulse oximetry Oxygen 98 % (no code) 95 - 100 % 05-16-2019 no name [facility] saturation in 08:05-0500 ([id number]) Arterial blood by Pulse oximetry Oxygen 99 % (no code) 95 - 100 % 05-14-2019 no name [facility] saturation in 05:04-0500 ([id number]) Arterial blood by Pulse oximetry Oxygen 98 % (no code) 95 - 100 % 05-13-2019 no name [facility] saturation in 12:32-0500 ([id number]) Arterial blood by Pulse oximetry Oxygen 95 % (no code) 95 - 100 % 05-11-2019 no name [facility] saturation in 10:51-0500 ([id number]) Arterial blood by Pulse oximetry Oxygen 95 % (no code) 95 - 100 % 05-10-2019 no name [facility] saturation in 07:36-0500 ([id number]) Arterial blood by Pulse oximetry Oxygen 82 % (LL) 95 - 100 % 05-09-2019 no name [facility] saturation in 07:10-0500 ([id number]) Arterial blood by Pulse oximetry Oxygen 99 % (no code) 95 - 100 % 05-08-2019 no name [facility] saturation in 07:43-0500 ([id number]) Arterial blood by Pulse oximetry Oxygen 98 % (no code) 95 - 100 % 05-07-2019 no name [facility] saturation in 08:43-0500 ([id number]) Arterial blood by Pulse oximetry Oxygen 100 % (no code) 95 - 100 % 05-06-2019 no name [facility] saturation in 05:36-0500 ([id number]) Arterial blood by Pulse oximetry Oxygen 99 % (no code) 95 - 100 % 05-04-2019 no name [facility] saturation in 11:45-0500 ([id number]) Arterial blood by Pulse oximetry Oxygen 99 % (no code) 95 - 100 % 05-04-2019 no name [facility] saturation in 03:48-0500 ([id number]) Arterial blood by Pulse oximetry Oxygen 98 % (no code) 95 - 100 % 05-03-2019 no name [facility] saturation in 08:33-0500 ([id number]) Arterial blood by Pulse oximetry Oxygen 98 % (no code) 95 - 100 % 05-02-2019 no name [facility] saturation in 10:49-0500 ([id number]) Arterial blood by Pulse oximetry Oxygen 97 % (no code) 95 - 100 % 04-29-2019 no name [facility] saturation in 03:23-0500 ([id number]) Arterial blood by Pulse oximetry Oxygen 99 % (no code) 95 - 100 % 04-27-2019 no name [facility] saturation in 08:15-0500 ([id number]) Arterial blood by Pulse oximetry Oxygen 94 % (no code) 95 - 100 % 04-26-2019 no name [facility] saturation in 06:29-0500 ([id number]) Arterial blood by Pulse oximetry Oxygen 99 % (no code) 95 - 100 % 04-25-2019 no name [facility] saturation in 08:37-0500 ([id number]) Arterial blood by Pulse oximetry Oxygen 98 % (no code) 95 - 100 % 04-22-2019 no name [facility] saturation in 05:03-0500 ([id number]) Arterial blood by Pulse oximetry Oxygen 98 % (no code) 95 - 100 % 04-21-2019 no name [facility] saturation in 05:20-0500 ([id number]) Arterial blood by Pulse oximetry Oxygen 98 % (no code) 95 - 100 % 04-20-2019 no name [facility] saturation in 05:16-0500 ([id number]) Arterial blood by Pulse oximetry Oxygen 98 % (no code) 95 - 100 % 04-19-2019 no name [facility] saturation in 08:40-0500 ([id number]) Arterial blood by Pulse oximetry Oxygen 98 % (no code) 95 - 100 % 04-18-2019 no name [facility] saturation in 06:29-0500 ([id number]) Arterial blood by Pulse oximetry Oxygen 98 % (no code) 95 - 100 % 04-16-2019 no name [facility] saturation in 09:32-0500 ([id number]) Arterial blood by Pulse oximetry Oxygen 98 % (no code) 95 - 100 % 04-15-2019 no name [facility] saturation in 04:22-0500 ([id number]) Arterial blood by Pulse oximetry Oxygen 97 % (no code) 95 - 100 % 04-14-2019 no name [facility] saturation in 08:57-0500 ([id number]) Arterial blood by Pulse oximetry Oxygen 98 % (no code) 95 - 100 % 04-13-2019 no name [facility] saturation in 07:42-0500 ([id number]) Arterial blood by Pulse oximetry Oxygen 98 % (no code) 95 - 100 % 04-12-2019 no name [facility] saturation in 09:02-0500 ([id number]) Arterial blood by Pulse oximetry Oxygen 98 % (no code) 95 - 100 % 04-11-2019 no name [facility] saturation in 08:52-0500 ([id number]) Arterial blood by Pulse oximetry Oxygen 98 % (no code) 95 - 100 % 04-09-2019 no name [facility] saturation in 07:50-0500 ([id number]) Arterial blood by Pulse oximetry Oxygen 98 % (no code) 95 - 100 % 04-08-2019 no name [facility] saturation in 06:55-0500 ([id number]) Arterial blood by Pulse oximetry Oxygen 98 % (no code) 95 - 100 % 04-06-2019 no name [facility] saturation in 04:17-0500 ([id number]) Arterial blood by Pulse oximetry Oxygen 98 % (no code) 95 - 100 % 04-05-2019 no name [facility] saturation in 07:45-0500 ([id number]) Arterial blood by Pulse oximetry Oxygen 100 % (no code) 95 - 100 % 04-04-2019 no name [facility] saturation in 06:42-0500 ([id number]) Arterial blood by Pulse oximetry Oxygen 98 % (no code) 95 - 100 % 04-03-2019 no name [facility] saturation in 04:24-0500 ([id number]) Arterial blood by Pulse oximetry Oxygen 98 % (no code) 95 - 100 % 04-01-2019 no name [facility] saturation in 04:52-0500 ([id number]) Arterial blood by Pulse oximetry Oxygen 98 % (no code) 95 - 100 % 03-30-2019 no name [facility] saturation in 05:11-0500 ([id number]) Arterial blood by Pulse oximetry Oxygen 96 % (no code) 95 - 100 % 03-29-2019 no name [facility] saturation in 06:57-0500 ([id number]) Arterial blood by Pulse oximetry Oxygen 98 % (no code) 95 - 100 % 03-28-2019 no name [facility] saturation in 06:42-0500 ([id number]) Arterial blood by Pulse oximetry Oxygen 98 % (no code) 95 - 100 % 03-28-2019 no name [facility] saturation in 03:22-0500 ([id number]) Arterial blood by Pulse oximetry Oxygen 99 % (no code) 95 - 100 % 03-26-2019 no name [facility] saturation in 11:03-0500 ([id number]) Arterial blood by Pulse oximetry Oxygen 98 % (no code) 95 - 100 % 03-25-2019 no name [facility] saturation in 04:08-0500 ([id number]) Arterial blood by Pulse oximetry Oxygen 98 % (no code) 95 - 100 % 03-22-2019 no name [facility] saturation in 07:35-0500 ([id number]) Arterial blood by Pulse oximetry Oxygen 97 % (no code) 95 - 100 % 03-21-2019 no name [facility] saturation in 08:19-0500 ([id number]) Arterial blood by Pulse oximetry Oxygen 97 % (no code) 95 - 100 % 03-18-2019 no name [facility] saturation in 04:06-0500 ([id number]) Arterial blood by Pulse oximetry Oxygen 92 % (no code) 95 - 100 % 03-14-2019 no name [facility] saturation in 09:100500 ([id number]) Arterial blood by Pulse oximetry Oxygen 88 % (LL) 95 - 100 % 03-12-2019 no name [facility] saturation in 08:01-0500 ([id number]) Arterial blood by Pulse oximetry Oxygen 92 % (no code) 95 - 100 % 03-11-2019 no name [facility] saturation in 06:15-0500 ([id number]) Arterial blood by Pulse oximetry Oxygen 84 % (LL) 95 - 100 % 03-09-2019 no name [facility] saturation in 04:59-0500 ([id number]) Arterial blood by Pulse oximetry Oxygen 95 % (no code) 95 - 100 % 03-08-2019 no name [facility] saturation in 08:05-0500 ([id number]) Arterial blood by Pulse oximetry Oxygen 99 % (no code) 95 - 100 % 03-07-2019 no name [facility] saturation in 07:16-0500 ([id number]) Arterial blood by Pulse oximetry Oxygen 97 % (no code) 95 - 100 % 03-05-2019 no name [facility] saturation in 08:25-0500 ([id number]) Arterial blood by Pulse oximetry Oxygen 97 % (no code) 95 - 100 % 03-04-2019 no name [facility] saturation in 05:33-0500 ([id number]) Arterial blood by Pulse oximetry Oxygen 96 % (no code) 95 - 100 % 03-02-2019 no name [facility] saturation in 04:57-0500 ([id number]) Arterial blood by Pulse oximetry Oxygen 97 % (no code) 95 - 100 % 03-01-2019 no name [facility] saturation in 08:19-0500 ([id number]) Arterial blood by Pulse oximetry Oxygen 96 % (no code) 95 - 100 % 02-28-2019 no name [facility] saturation in 05:44-0500 ([id number]) Arterial blood by Pulse oximetry Oxygen 96 % (no code) 95 - 100 % 02-24-2019 no name [facility] saturation in 09:46-0500 ([id number]) Arterial blood by Pulse oximetry Oxygen 98 % (no code) 95 - 100 % 02-23-2019 no name [facility] saturation in 06:24-0500 ([id number]) Arterial blood by Pulse oximetry Oxygen 97 % (no code) 95 - 100 % 02-22-2019 no name [facility] saturation in 08:17-0500 ([id number]) Arterial blood by Pulse oximetry Oxygen 96 % (no code) 95 - 100 % 02-21-2019 no name [facility] saturation in 09:55-0500 ([id number]) Arterial blood by Pulse oximetry Oxygen 96 % (no code) 95 - 100 % 02-18-2019 no name [facility] saturation in 04:49-0500 ([id number]) Arterial blood by Pulse oximetry Oxygen 99 % (no code) 95 - 100 % 02-16-2019 no name [facility] saturation in 04:55-0500 ([id number]) Arterial blood by Pulse oximetry Oxygen 97 % (no code) 95 - 100 % 02-15-2019 no name [facility] saturation in 04:22-0500 ([id number]) Arterial blood by Pulse oximetry Oxygen 95 % (no code) 95 - 100 % 02-14-2019 no name [facility] saturation in 04:48-0500 ([id number]) Arterial blood by Pulse oximetry Oxygen 98 % (no code) 95 - 100 % 02-13-2019 no name [facility] saturation in 02:42-0500 ([id number]) Arterial blood by Pulse oximetry Oxygen 96 % (no code) 95 - 100 % 02-10-2019 no name [facility] saturation in 11:05-0500 ([id number]) Arterial blood by Pulse oximetry Oxygen 96 % (no code) 95 - 100 % 02-09-2019 no name [facility] saturation in 05:11-0500 ([id number]) Arterial blood by Pulse oximetry Oxygen 97 % (no code) 95 - 100 % 02-08-2019 no name [facility] saturation in 06:59-0500 ([id number]) Arterial blood by Pulse oximetry Oxygen 98 % (no code) 95 - 100 % 02-07-2019 no name [facility] saturation in 04:27-0500 ([id number]) Arterial blood by Pulse oximetry Oxygen 98 % (no code) 95 - 100 % 02-06-2019 no name [facility] saturation in 03:41-0500 ([id number]) Arterial blood by Pulse oximetry Oxygen 99 % (no code) 95 - 100 % 02-04-2019 no name [facility] saturation in 05:20-0500 ([id number]) Arterial blood by Pulse oximetry Oxygen 97 % (no code) 95 - 100 % 02-02-2019 no name [facility] saturation in 07:09-0500 ([id number]) Arterial blood by Pulse oximetry Oxygen 89 % (L) 95 - 100 % 02-01-2019 no name [facility] saturation in 04:43-0500 ([id number]) Arterial blood by Pulse oximetry Oxygen 98 % (no code) 95 - 100 % 01-31-2019 no name [facility] saturation in 08:11-0500 ([id number]) Arterial blood by Pulse oximetry Oxygen 98 % (no code) 95 - 100 % 01-29-2019 no name [facility] saturation in 03:51-0500 ([id number]) Arterial blood by Pulse oximetry Oxygen 96 % (no code) 95 - 100 % 01-28-2019 no name [facility] saturation in 03:14-0500 ([id number]) Arterial blood by Pulse oximetry Oxygen 96 % (no code) 95 - 100 % 01-26-2019 no name [facility] saturation in 05:06-0500 ([id number]) Arterial blood by Pulse oximetry Oxygen 96 % (no code) 95 - 100 % 01-25-2019 no name [facility] saturation in 07:40-0500 ([id number]) Arterial blood by Pulse oximetry Oxygen 97 % (no code) 95 - 100 % 01-24-2019 no name [facility] saturation in 08:29-0500 ([id number]) Arterial blood by Pulse oximetry Oxygen 96 % (no code) 95 - 100 % 01-22-2019 no name [facility] [facility] saturation in 05:58-0400 ([id number]) Arterial blood by Pulse oximetry Oxygen 98 % (no code) 95 - 100 % 01-21-2019 no name [facility] saturation in 06:21-0400 ([id number]) Arterial blood by Pulse oximetry Oxygen 98 % (no code) 95 - 100 % 01-19-2019 no name [facility] saturation in 06:19-0400 ([id number]) Arterial blood by Pulse oximetry Oxygen 98 % (no code) 95 - 100 % 01-18-2019 no name [facility] saturation in 08:52-0400 ([id number]) Arterial blood by Pulse oximetry Systolic blood 170 mm[Hg] (HH) 90 - 120 02-16-2018 no name [facility] pressure mm[Hg] 14:51-0500 ([id number]) Systolic blood 121 mm[Hg] (no code) 90 - 120 01-06-2018 no name [facility] pressure mm[Hg] 08:55-0400 ([id number]) Interventions No Information Plan of Treatment The data below is from unstructured sources Discharge Date 07/20/14 11:10am Disposition 30 STILL A PATIENT Instructions/Education Provided DR. WALTON-CITLALYAXIS Gastrointestinal Bleeding (DC) Prescriptions See Medications Sectio n Referrals AUDRA LONGORIA MD (Unspec ified) 07/24/14 Address: [address] [place], [place] [address] Reason(s) for Referral: THURSDAY AT 1:30 (Unspecified) (Physical Medicine and Rehab) (Physical Medicine and Rehab) OTILIO DICKENS DO (Unspecified) 08/09/14 Address: [address] [place] [id number] Reason(s) for Referral: July AT 10:40 A.M. MARY WALTON MD (Unspecified) 08/01/14 Address: [address] [facility] [address] [place] [address] Reason(s) for Referral: July DR. AWLTON AT 9:00 A.M. Additional Instructions/Education -- Follow up with Dr. Dickens within 3 weeks or sooner. Office number is [phone]. --Follow up with inspector materials and processes Dr. Perry in [place] within 2 weeks. _Send home wiht Epistaxis instaructions and instructions to use ocena nasal spray as needed for the congestion adn to keep Care Plan and Goals [facility] ordered at [place] for PT/OT/RN/Bath Aid. RTC-ENT-2 weeks [place] Send home wiht Epistaxis instaructions and instructions to use ocena nasal spray as needed for the congestion adn to keep nose moist for the foreseeable future Discharge Date 07/20/14 11:10am Disposition 06 HOME HEALTH SERVICE Instructions/Education Provided DR. WALTON-EPITAXIS Gastrointestinal Bleeding (DC) Prescriptions See Medications Sectio n Referrals AUDRA LONGORIA MD (Unspec ified) 07/24/14 Address: [address] [place], [place] [id number] Reason(s) for Referral: THURSDAY AT 1:30 (Unspecified) (Physical Medicine and Rehab) (Physical Medicine and Rehab) OTILIO DICKENS DO (Unspecified) 08/09/14 Address: [address] [place] [id number] Reason(s) for Referral: July AT 10:40 A.M. MARY WALTON MD (Unspecified) 08/01/14 [facility] [address] [place], [place] [id number] Reason(s) for Referral: July DR. WALTON AT 9:00 A.M. Additional Instructions/Education -- Follow up with Dr. Dickens within 3 weeks or sooner. Office number is [phone]. --Follow up with inspector materials and processes Dr. Perry in [place] within 2 weeks. _Send home wiht Epistaxis instaructions and instructions to use ocena nasal spray as needed for the congestion adn to keep Care Plan and Goals [facility] ordered at [place] for PT/OT/RN/Bath Aid. RTC-ENT-2 weeks [place] Send home wiht Epistaxis instaructions and instructions to use ocena nasal spray as needed for the congestion adn to keep nose moist for the foreseeable future Discharge Date 07/20/14 11:10am Disposition 06 HOME HEALTH SERVICE Instructions/Education Provided DR. WALTON-EPITAXIS Gastrointestinal Bleeding (DC) Prescriptions See Medications Sectio n Referrals AUDRA LONGORIA MD (Unspec ified) 07/24/14 Address: [facility] [address] [place] [address] Reason(s) for Referral: THURSDAY AT 1:30 (Unspecified) (Physical Medicine and Rehab) (Physical Medicine and Rehab) OTILIO DICKENS DO (Unspecified) 08/09/14 Address: [address] [place] [id number] Reason(s) for Referral: July AT 10:40 A.M. MARY WALTON MD (Unspecified) 08/01/14 Address: [address], [facility] [address] [place], [place] [address] Reason(s) for Referral: July DR. WALTON AT 9:00 A.M. Additional Instructions/Education -- Follow up with Dr. Dickens within 3 weeks or sooner. Office number is [phone]. --Follow up with inspector materials and processes Dr. Perry in [place] within 2 weeks. _Send home wiht Epistaxis instaructions and instructions to use ocena nasal spray as needed for the congestion adn to keep Care Plan and Goals [facility] ordered at [place] for PT/OT/RN/Bath Aid. RTC-ENT-2 weeks [place] Send home wiht Epistaxis instaructions and instructions to use ocena nasal spray as needed for the congestion adn to keep nose moist for the foreseeable future Goals No Information Social History No Information Functional Status The data below is from unstructured sources Query Response Date Sunday rded Comprehension Ability Understands Co ncepts July 20, 2014 7:15am Mental Status No Information Encounters Encounter Normalized Encounter Encounter Diagnosis Care Provi esther Organization Date Type 11-12-2017 Patient encounter no information no name (no phone) no organization name - (no phone) 11-13-2017 12-31-2016 Patient encounter no information no name (no phone) no organization name (no phone) 05-15-2014 Patient encounter no information no name (no phone) no organization name (no phone) 05-03-2014 Patient encounter no information no name (no phone) no organization name - (no phone) 08-01-2014 11-01-2012 Patient encounter no information no name (no phone) no organization name (no phone) Patient encounter no information (no phone) [facility] (no phone) 06-16-2019 Patient encounter no information MARIANA HOWARD (no [facility] phone[facility] of [facility] (no 06-16-2019 phone) 05-19-2019 Patient encounter no information LEE EDMONDS (no [facility] of [facility] (no 05-19-2019 phone) 03-25-2019 Patient encounter no information no name (no phone) no organization name - procedure (no phone) 03-25-2019 03-25-2019 Patient encounter no information no name (no phone) no organization name - procedure (no phone) 03-25-2019 03-19-2019 Patient encounter no information no name (no phone) no organization name - procedure (no phone) 03-20-2019 02-10-2019 Patient encounter no information no name (no phone) no organization name - procedure (no phone) 02-10-2019 12-08-2018 Patient encounter no information no name (no phone) no organization name - procedure (no phone) 12-09-2018 11-13-2018 Patient encounter no information no name (no phone) no organization name - procedure (no phone) 11-14-2018 11-12-2018 Patient encounter no information no name (no phone) no organization name - procedure (no phone) 11-13-2018 11-12-2018 Patient encounter no information no name (no phone) no organization name - procedure (no phone) 11-13-2018 09-02-2018 Patient encounter no information no name (no phone) no organization name - procedure (no phone) 09-03-2018 08-02-2018 Patient encounter no information no name (no phone) no organization name - procedure (no phone) 08-03-2018 06-22-2018 Patient encounter no information no name (no phone) no organization name - procedure (no phone) 06-23-2018 05-21-2018 Patient encounter no information no name (no phone) no organization name - procedure (no phone) 05-22-2018 04-16-2018 Patient encounter no information no name (no phone) no organization name - procedure (no phone) 04-17-2018 04-15-2018 Patient encounter no information no name (no phone) no organization name - procedure (no phone) 04-16-2018 04-05-2018 Patient encounter no information no name (no phone) no organization name - procedure (no phone) 04-06-2018 04-05-2018 Patient encounter no information no name (no phone) no organization name procedure (no phone) 04-01-2018 Patient encounter no information no name (no phone) no organization name - procedure (no phone) 04-02-2018 10-09-2017 Patient encounter no information no name (no phone) no organization name - procedure (no phone) 10-10-2017 05-13-2017 Patient encounter no information no name (no phone) no organization name - procedure (no phone) 05-14-2017 04-16-2017 Patient encounter no information no name (no phone) no organization name - procedure (no phone) 04-17-2017 03-20-2017 Patient encounter no information no name (no phone) no organization name - procedure (no phone) 03-21-2017 02-02-2017 Patient encounter no information no name (no phone) no organization name - procedure (no phone) 02-02-2017 01-26-2017 Patient encounter no information no name (no phone) no organization name - procedure (no phone) 01-27-2017 01-14-2017 Patient encounter no information no name (no phone) no organization name - procedure (no phone) 01-15-2017 12-07-2016 Patient encounter no information no name (no phone) no organization name - procedure (no phone) 12-08-2016 12-01-2016 Patient encounter no information no name (no phone) no organization name - procedure (no phone) 12-02-2016 10-10-2016 Patient encounter no information no name (no phone) no organization name - procedure (no phone) 10-11-2016 08-18-2016 Patient encounter no information no name (no phone) no organization name - procedure (no phone) 08-19-2016 06-03-2016 Patient encounter no information no name (no phone) no organization name - procedure (no phone) 06-04-2016 04-15-2016 Patient encounter no information no name (no phone) no organization name - procedure (no phone) 04-16-2016 08-02-2014 Patient encounter no information no name (no phone) no organization name procedure (no phone) Medical Equipment No Information Payers Normalized Payer Value Medicare no information Advance Directives Directive Response Recor ded Date/Time Advance Directives No 10:11am Health Care Power of Service Member No 07/16/14 10:11am Organ Donor No 07/16/14 10:11am Resuscitation Status Full Code 07/16/14 10:11am Discharge Instructions Patient Instructions Physician Instructions Plan of Care/Instructions/FU: Dr. Longoria Thursday07/24/14 and have repeat labs performed. Dickens- 3 weeks, earlier if needed. Activity as Tolerated: No (No strenuous activity.) Discharge Diet: Soft Diet Other Inst to Patient Symptoms to Report: Appetite Changes, Extremity Discoloration, Numbness/Tingling, Swelling Increased, Bleeding Excessive, Eyesight Changes, Pain Increased, Urine Color Change, Constipation(Persistent), Fever over 101 degree F, Pain/Pressure in chest, Urinating Difficulty, Cough Up/Vomit Blood, Heart Beat Irreg/Pounding, Pain/Pressure in jaw, Vaginal Bleeding Increase, Cramps in feet or legs, Lightheadedness, Pain/Pressure in shoulder, Diarrhea(Persistent), Memory Changes Suddenly, Questions/Concerns, Weight gain consecutive days, Dizziness/Fainting, Nausea/Vomiting, Shortness of Breath, Weight gain over 2 pounds If questions or concerns contact your physician Or seek help at emergency department. Care Plan Patient Instructions:: Dr. Longoria Thursday07/24/14 and have repeat labs performed.Dickens- 3 weeks, earlier if needed. Patient Instructions Physician Instructions Plan of Care/Instructions/FU: Dr. Longoria Thursday07/24/14 and have repeat labs performed. Dickens- 3 weeks, earlier if needed. Activity as Tolerated: No (No strenuous activity.) Discharge Diet: Soft Diet Other Inst to Patient Symptoms to Report: Appetite Changes, Extremity Discoloration, Numbness/Tingling, Swelling Increased, Bleeding Excessive, Eyesight Changes, Pain Increased, Urine Color Change, Constipation(Persistent), Fever over 101 degree F, Pain/Pressure in chest, Urinating Difficulty, Cough Up/Vomit Blood, Heart Beat Irreg/Pounding, Pain/Pressure in jaw, Vaginal Bleeding Increase, Cramps in feet or legs, Lightheadedness, Pain/Pressure in shoulder, Diarrhea(Persistent), Memory Changes Suddenly, Questions/Concerns, Weight gain consecutive days, Dizziness/Fainting, Nausea/Vomiting, Shortness of Breath, Weight gain over 2 pounds If questions or concerns contact your physician Or seek help at emergency department. Care Plan Patient Instructions:: Dr. Longoria Thursday07/24/14 and have repeat labs performed.Dickens- 3 weeks, earlier if needed. Additional Source Comments This clinical document has been generated using [employer] software that has been certified by the Office of the National Coordinator for Health Information Technology (ONC 15.99.04.3023.Diam.31.00.0.762194) and the National Committee for Treatment Manager (NCQA, as an eMeasure certified technology). FOR RECORDS PERTAINING TO PATIENTS WHO ARE OR HAVE BEEN ENROLLED IN A CHEMICAL D EPENDENCY/SUBSTANCE ABUSE PROGRAM, SOME INFORMATION MAY BE OMITTED. This clinica l summary was aggregated from multiple sources. Caution should be exercised in using it in the provision of clinical care. This summary normalizes information from multiple sources, and as a consequence, information in this document may ma terially change the coding, format and clinical context of patient data. In angus tion, data may be omitted in some cases. CLINICAL DECISIONS SHOULD BE BASED ON T HE PRIMARY CLINICAL RECORDS. [employer] provides no warranty or guara ntee of the accuracy or completeness of information in this document.The followi ng information is based on time limited clinical information
[2019-07-20] MEDS ORDERED: NS IV 1000 ML 1,000 ML IV SCH ×2 (09:00→13:14)
[2019-07-20] MEDS ORDERED: methylPREDNISolone 125 MG (Solu-MEDROL) VIAL ONE (09:33)
--- NOTE | 2019-07-20 09:39 | Diagnostic Imaging Report ---
INDICATION: Vascular disease, preop. No focal pulmonary consolidation. Some hilar lobation greater right is likely superimposition of vascularity. Old calcified left lower lobe granuloma unchanged from correlative chest CT of 2015. No failure, effusion or pneumothorax. There is severe chronic degenerative changes, ostial lysis and rotator cuff deficiency's at the partially visualized shoulders. IMPRESSION: Benign calcified granuloma chronic. No acute appearing cardiopulmonary abnormality. Dictated by: Dictated on workstation # [id number]
[2019-07-20 09:41] LABS: HEMOGLOBIN 10.4 G/DL (11.5-16.0); MEAN PLATELET VOLUME 10.5 FL (7.4-10.4); RED CELL DISTRIBUTION WIDTH 13.1 % (10.0-14.5); WHITE BLOOD COUNT 12.8 10^3/uL (4.3-11.0)
[2019-07-20 09:56] LABS: PROTHROMBIN TIME PATIENT 13.2 SEC (12.2-14.7)
[2019-07-20 10:02] LABS: ALANINE AMINOTRANSFERASE 9 U/L (0-55); ALBUMIN 3.6 GM/DL (3.2-4.5); ALKALINE PHOSPHATASE 71 U/L (40-136); BILIRUBIN,TOTAL 0.3 MG/DL (0.1-1.0); BUN/CREATININE RATIO 16; CALCIUM 9.4 MG/DL (8.5-10.1); CARBON DIOXIDE 23 MMOL/L (21-32); CHLORIDE 101 MMOL/L (98-107); CHOLESTEROL 173 MG/DL (< 200); CREATININE SERUM 0.77 MG/DL (0.60-1.30); GFR ESTIMATED > 60; GLUCOSE 93 MG/DL (70-105); HDL CHOLESTEROL 65 MG/DL (40-60); POTASSIUM 4.4 MMOL/L (3.6-5.0); SODIUM 133 MMOL/L (135-145); TOTAL PROTEIN 6.4 GM/DL (6.4-8.2); TRIGLYCERIDES 75 MG/DL (<150); VLDL CHOLESTEROL 15 MG/DL (5-40)
[2019-07-20] MEDS ORDERED: LEVE500T99 PO (10:17)
[2019-07-20] MEDS ORDERED: PHEN95TA PO (10:17)
[2019-07-20] MEDS ORDERED: METH1TAB46 PO (10:17)
[2019-07-20] MEDS ORDERED: FLUO10CA29 PO (10:17)
[2019-07-20] MEDS ORDERED: GUAI400T86 PO (10:17)
[2019-07-20] MEDS ORDERED: ONDA4TAB11 PO (10:17)
[2019-07-20] MEDS ORDERED: OXYB5TAB13 PO (10:17)
[2019-07-20] MEDS ORDERED: ASPI-586 PO (10:17)
[2019-07-20] MEDS ORDERED: SERT25TA5 PO (10:17)
[2019-07-20] MEDS ORDERED: CRAN250T2 PO (10:17)
[2019-07-20] MEDS ORDERED: SULF1TAB35 PO (10:17)
[2019-07-20] MEDS ORDERED: ELUX75TA PO (10:17)
[2019-07-20] MEDS ORDERED: CELE100C PO (10:17)
[2019-07-20] MEDS ORDERED: FURO20TA4 PO (10:17)
[2019-07-20] MEDS ORDERED: ACET-2267 PO (10:17)
[2019-07-20] MEDS ORDERED: TRAM50TA3 PO (10:17)
[2019-07-20] MEDS ORDERED: L.AC1CAP6 PO (10:17)
[2019-07-20] MEDS ORDERED: POTA10CA43 PO (10:17)
[2019-07-20] MEDS ORDERED: MIDAZOLAM 5 MG/5 ML (VERSED) VIAL ONE (12:07)
[2019-07-20] MEDS ORDERED: fentaNYL INJECTION 100 MCG/2 ML AMP ONE ×2 (12:07→13:01)
--- NOTE | 2019-07-20 12:13 | Cardiac Procedure Note-CS/ASA ---
Pre-Procedure Note Pre-Op Procedure Note H&P Reviewed The H&P was reviewed, patient examined and no changes noted. Date H&P Reviewed: Jul 20, 2019 Time H&P Reviewed: 12:13 Conscious Sedation Pre-Proced Time 12:13 ASA Score 3 For ASA 3 and 4: Consider anesthesia and medical clearance. Also, for patients with a history of failed moderate sedation consider anesthesia. Airway Lungs Heart ASA score ASA 1: a normal healthy patient ASA 2: a patient with a mild systemic disease (mid diabetes, controlled hypertension, obesity ASA 3: a patient with a severe systemic disease that limits activity (angina, COPD, prior Myocardial infarction) x ASA 4: a patient with an incapacitating disease that is a constant threat to life (CHF, renal failure) ASA 5: a moribund patient not expected to survive 24 hrs. (ruptured aneurysm) ASA 6: a declared brain- patient whose organs are being harvested. For emergent operations, add the letter E after the classification Mallampati Classification Grade 3 Sedation Plan Analgesia, Amnesia, Plan communicated to team members, Discussed options with patient/fam, Discussed risks with patient/fam The patient is an appropriate candidate to undergo the planned procedure, sedation, and anesthesia. The patient immediately re-assessed prior to indication. REGINA RUSSO MD Jul 20, 2019 12:13
[2019-07-20] MEDS ORDERED: PATIENT MAY USE OWN MEDS, ALL PO SCH (13:15)
--- NOTE | 2019-07-20 13:20 | Discharge Inst-Post CATH ---
Discharge Inst-CATH/EP Problems Reviewed?: Yes Post Cardiac Cath/EP D/C Inst Follow Up/Plan Appointment with Dr. Fam Osullivan Appointment with Dr. Silva in 4 weeks <b>CARDIAC CATH/EP PROCEDURE DISCHARGE INSTRUCTIONS</b> ACTIVITY * Go Home directly and rest. * Limit activity of the leg (or wrist if it was used) for 7 days including aerobics, swimming, jogging, bicycling, etc. * Restrict stair-climbing for 7 days if possible, if not, climb up with your non-cath leg, then bring together on the same step. * Avoid lifting, pushing, pulling or excessive movement of the affected extremity for 7 days. * Customary sexual activity may be resumed after 2 days-use caution not to use a position that strains or causes pain to the affected extremity. * No driving for 24 hours. * NO SMOKING. * Avoid straining for bowel movements for 7 days. * Gentle walking on level ground is allowed. * Returning to work will depend on the type of procedure and the results. Your doctor will discuss this with you. CALL YOUR DOCTOR FOR ANY OF THE FOLLOWING: *If bleeding from the puncture site occurs- Apply gentle pressure to site with clean cloth and call your doctor or EMS. * If a knot or lump forms under the skin, increases in size, or causes pain. * If bruising appears to be worsening or moving further down your leg instead of disappearing. * Temperature above 101 F. CARE OF YOUR GROIN INCISION; * Bruising or purple discoloration of the skin near the puncture site is common. * You may shower only, no bathtub bathing for 5 days. Be careful to avoid slipping as your leg may feel stiff. * If a closure device was used on your femoral artery, please see the attached guide regarding care of the device and your leg. * Leave dressing on FOR 24 hours. CARE OF YOUR WRIST INCISION; * Bruising or purple discoloration of the skin near the puncture site is common. * You may shower. * DO NOT submerge wrist. * Leave dressing on FOR 24 hours. REGINA SILVA MD Jul 20, 2019 1:20 pm
--- NOTE | 2019-07-20 13:26 | Peripheral Report ---
Peripheral Report Physician (s)/Guide Excursion (s) Physician REGINA RUSSO MD Pre-Procedure Diagnosis Pre-Procedure Diagnosis: critical limb ischemia Post-Procedure Note Procedure Start Date: Jul 20, 2019 Name of Procedure: Abdominal aortogram with bilateral runoff Findings/Procedure Note PROCEDURE NOTE: 83-year-old lady with history of coronary artery disease deemed inoperable, had nonhealing foot ulcer and possible amputation, abnormal KATHLEEN scheduled for peripheral angiogram After explaining the procedure to the patient, all pros and cons were explained, all questions were answered. The patient signed the consent and then she was placed on the cardiac catheterization laboratory. The patient was placed on the cardiac catheterization laboratory. Groin was prepped SL fashion local anesthesia was used. Sheath placed in the left femoral artery, runoff to the left leg was done, and catheter was advanced to the abdominal aorta and abdominal aortogram was done then placed at the bifurcation and angiogram was done, and was unable to advance wire across the iliac artery. Addendum of the procedure sheath was removed and manual pressure applied FINDINGS: Aorta showed other scorer disease, normal renal artery, S-shaped abdominal aorta Bifurcation showed heavily tortuous iliac artery nonobstructive disease, also S- shaped right iliac artery Left leg runoff showed heavily calcified artery with multiple segment of moderate severe disease, occlusion below the knee Right leg runoff showed heavily calcified artery with multiple segment with moderate to severe disease, one area of subtotal occlusion then no flow below the knee CONCLUSIONS: 1. Severe bilateral atherosclerotic disease with heavily calcified arteries, unable to evaluate the flow below the knee 2. Heavily tortuous iliac arteries makes it very difficult to cross over with sheath, might benefit from evaluation for possible femoropopliteal bypass DISCUSSION AND RECOMMENDATIONS: Heavily calcified and severe disease in addition to critical limb ischemia, might benefit from bypass or pedal access intervention Anesthesia Type: Conscious Sedation Estimated blood loss (mL): 25 ml Contrast Amount: 17 ml Total Radiation Dose: 115 mGy Post-Procedure Diagnosis Post-operative diagnosis: Critical limb ischemia Nonhealing ulcer Peripheral arterial disease Coronary artery disease REGINA RUSSO MD Jul 20, 2019 1:26 pm
== END 2019-07-20 17:45 | disposition home or self-care (01) ==
LOC: CATH 08:40 → SDC 13:45 → CATH 17:45
PROVIDERS: ATTEND Internal Medicine Cardiovascular Disease
DX: I70.203 Unspecified atherosclerosis of native arteries of extremities, bilateral legs (principal); I77.1 Stricture of artery; S91.301A Unspecified open wound, right foot, initial encounter; I25.10 Atherosclerotic heart disease of native coronary artery without angina pectoris; I08.3 Combined rheumatic disorders of mitral, aortic and tricuspid valves; I27.20 Pulmonary hypertension, unspecified; I11.9 Hypertensive heart disease without heart failure; D64.9 Anemia, unspecified; K21.9 Gastro-esophageal reflux disease without esophagitis; E03.9 Hypothyroidism, unspecified; E78.2 Mixed hyperlipidemia; M96.1 Postlaminectomy syndrome, not elsewhere classified; M81.0 Age-related osteoporosis without current pathological fracture; M19.90 Unspecified osteoarthritis, unspecified site; M51.16 Intervertebral disc disorders with radiculopathy, lumbar region; D72.829 Elevated white blood cell count, unspecified; F32.9 Major depressive disorder, single episode, unspecified; F03.90 Unspecified dementia, unspecified severity, without behavioral disturbance, psychotic disturbance, mood disturbance, and anxiety; Z88.5 Allergy status to narcotic agent; Z88.1 Allergy status to other antibiotic agents; Z79.82 Long term (current) use of aspirin; Z79.899 Other long term (current) drug therapy; Z88.8 Allergy status to other drugs, medicaments and biological substances; Z91.013 Allergy to seafood; Z91.048 Other nonmedicinal substance allergy status
CPT/HCPCS: 36415; 71045; 75630; 80053; 80061; 85027; 85610; 85730; 87081

== ENCOUNTER 2019-09-14 10:07 | Outpatient (RCR) | payer MEDICARE, MEDICAID ==
[~2019-09-14] VITALS: Ht 152.4 cm; Wt 46.5 kg
[~2019-09-14 10:07] MED LIST changes: +ACET-2267 PO; +ASPI-586 PO; +CELE100C PO; +CRAN250T2 PO; +ELUX75TA PO; +FLUO10CA29 PO; +FURO20TA4 PO; +GUAI400T86 PO; +L.AC1CAP6 PO; +LEVE500T99 PO; +METH1TAB46 PO; +ONDA4TAB11 PO; +OXYB5TAB13 PO; +PHEN95TA PO; +POTA10CA43 PO; +SERT25TA5 PO; +SULF1TAB35 PO; +TRAM50TA3 PO
[2019-09-14] MEDS ORDERED: LEVO50TA6 PO (11:39)
[2019-09-14] MEDS ORDERED: UBID100C7 PO (11:39)
[2019-09-14] MEDS ORDERED: CALC-6 PO (11:39)
[2019-09-14] MEDS ORDERED: DOCU100T2 PO (11:39)
[2019-09-14] MEDS ORDERED: FLUT15.845 NSEACH (11:39)
[2019-09-14] MEDS ORDERED: CEPH500C PO (11:39)
[2019-09-14] MEDS ORDERED: NITR1PAT63 TD (11:39)
[2019-09-14] MEDS ORDERED: PANT40TA3 PO (11:39)
[2019-09-14] MEDS ORDERED: NITR0.4T39 SL (11:39)
[2019-09-14] MEDS ORDERED: MELA1TAB16 PO (11:39)
[2019-09-14] MEDS ORDERED: LORA10TA7 PO (11:39)
[2019-09-14] MEDS ORDERED: LACT1.5C PO (12:07)
[2019-09-14] MEDS ORDERED: CHOL400T PO (12:07)
[2019-09-14] MEDS ORDERED: SODI100047 PO (12:07)
[2019-09-14] MEDS ORDERED: ACET-2715 PO (12:07)
[2019-09-14] MEDS ORDERED: ELUX75TA PO (12:07)
[2019-09-14] MEDS ORDERED: PNV1TABL67 PO (12:07)
[2019-09-14] MEDS ORDERED: RANO10003 PO (12:07)
[2019-09-14] MEDS ORDERED: SIMV20TA26 PO (12:07)
[2019-09-15] MEDS ORDERED: HYDR-83 PO (15:17)
== END 2019-09-14 12:09 | disposition home or self-care (01) ==
LOC: PREOP 10:07
PROVIDERS: ATTEND Surgery
DX: Z01.818 Encounter for other preprocedural examination (principal)

== ENCOUNTER 2019-09-15 09:22 | Inpatient (IN) | payer MEDICARE, MEDICAID ==
[2019-09-15] VITALS (10 sets, daily range): BP systolic 120–183; BP diastolic 66–90
[~2019-09-15] VITALS: Ht 152.4 cm; Wt 46.5 kg
[~2019-09-15 09:22] MED LIST changes: +ACET-2715 PO; +CALC-6 PO; +CEPH500C PO; +CHOL400T PO; +DOCU100T2 PO; +FLUT15.845 NSEACH; +LACT1.5C PO; +LEVO50TA6 PO; +MELA1TAB16 PO; +NITR0.4T39 SL; +NITR1PAT63 TD; +PANT40TA3 PO; +PNV1TABL67 PO; +SIMV20TA26 PO; +SODI100047 PO; +UBID100C7 PO
--- OUTSIDE RECORDS SUMMARY | 2019-09-15 09:52 | XMS REPORT ---
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 Name Role Phone AUDRA LONGORIA Unavailable GARCIA, RUDI-JOSE Unavailable Unavailable GARCIA, RUDI-JOSE Unavailable Unavailable GARCIA, RUDI-JOSE Unavailable Unavailable NUZHAT VAZQUEZ Unavailable Unavailable PAONI, CHESTER Unavailable Unavailable PAONI, CHESTER Unavailable Unavailable RAFAELA, BASHAR Unavailable Unavailable RAFAELA, BASHAR Unavailable Unavailable RAFAELA, BASHAR Unavailable Unavailable BROWN, AUDRA Unavailable Unavailable BROWN, AUDRA Unavailable Unavailable BALA, AUDRA Unavailable Unavailable AUDRA LONGORIA MD Unavailable Unavailable AUDRA LONGORIA MD Unavailable Unavailable AUDRA LONGORIA MD Unavailable Unavailable [...] CHESTER Unavailable Unavailable PAONI, CHESTER Unavailable Unavailable BENJAMIN RODRIGUEZ MD Unavailable Unavailable AUDRA LONGORIA MD Unavailable Unavailable REGINA RUSSO MD Unavailable Unavailable OTILIO DICKENS DO Unavailable Unavailable OTILIO DICKENS DO Unavailable Unavailable GEORGES CARTER Unavailable Unavailable Unavailable Unavailable Unavailable Unavailable Unavailable Unavailable Unavailable Unavailable Unavailable Unavailable Unavailable Unavailable Unavailable Unavailable Allergies Normalized Allergy Reported Date of Reaction(s) Care Provider Facility Allergy Type classification allergen Allergy Onset Substance Adhesive Tape Adhesive Tape 07-20-2019 - no informatio jessika RODRIGUEZ [facility] Via Allergy (MD Tayla Cortes sources.) [facility] ([id number]) Drug Allergy Quinolones ciprofloxacin 07-20-2019 - OTHER, UNKNOW N ERICH CLEMENTE Not Available (20 sources.) (antibiotic) Translations: (34816) [ ciprofloxacin] DA (22 Unclassified Fish 07-17-2014 - no information BRETT RODRIGUEZ [facility] Via sources.) Containing , [facility] (72467) Drug Allergy Iodine (and iodine OTHER, UNKNOWN ERICH CLEMENTE Not Available (20 sources.) Iodine (58984) containting drugs) Drug Allergy Sulfonamides Sulfonamides UNKNOWN SATINDERSHRUTI RAFAELA Not Available (22 sources.) (antibiotic) (Antibiotic) (67623) Medications Medication Ingredient Drug Dose Dates Status Sig Sig Care Class(es) (Normalized) (Original) Provid er no Acetaminoph no 03-19-20 no no no no information en information - informat information infor mation name (1 source.) 03-20-20 ion 19 04-06-2018 no no no no name - information inform informat 05-06-2018 ation ion no Albuterol beta2-Adren 03-19-20 no no no no information ergic - informat information information name (1 source.) Agonist 03-29-19 ion 20 03-19-2019 no no no no name - information inform informat 03-19-2019 ation ion no amLODIPine Dihydropyri 10 mg 03-20-20 no no AMLO DIPINE no information Translation dine - informat information TAB 10 MG name (1 source.) s: [ Calcium 04-18-19 ion (NORVASC) 1 0 AMLODIPINE Channel 20 10 TAB 10 MG Matias (NORVASC)] 10 mg 04-06-2018 no no AMLODIPI no name - information inform NE TAB 05-05-2018 ation 10 MG (NORVASC ) 10 10 no ASA 81MG no 81 mg 03-20-20 no no ASA 81MG n o information ENTERIC information - informat information ENTE KEILA name (1 source.) COATED TAB 03-26-19 ion COATED TAB 81 MG (BABY 20 81 MG (BABY ASPIRIN EC) ASPIRIN EC) 81 81 no AZITHROMYCI no 500 mg 03-19-20 no no no no information N VIAL INJ information - informat informatio n information name (1 source.) 500 MG 03-26-19 ion (ZITHROMAX 20 VIAL) no benazepril Angiotensin 20 mg 03-19-20 no no no no information Translation Converting - informat informatio n information name (1 source.) s: [ Enzyme 03-19-20 ion BENAZEPRIL Inhibitor 19 TAB 20 MG (LOTENSIN)] 20 mg 04-06-2018 no no no no name - information inform informat 04-12-2018 ation ion no Calcium no 04-06-19 no no calcium no information Carbonate information - informat information ca rbonate name (1 source.) 05-05-19 ion (calcium 19 carbonate) oral tablet,chewa ble 600 600 no CEFTRIAXONE no 03-19-20 no no no no information PREMIX IV information - informat information in formation name (1 source.) BAG IV 1 03-26-19 ion GM/50CC 20 (ROCEPHIN PREMIX IV BAG) no celecoxib Nonsteroida 100 mg 04-07-19 no no Celec oxib no information l - informat information oral capsule name (1 source.) Anti-inflam 04-16-19 ion 100mg matory Drug 19 (Celebrex) 100 100 no CoQ-10 no 03-20-20 no no CoQ-10 no information (coenzyme information - informat information (c oenzyme name (1 source.) Q10) oral 03-26-19 ion Q10) oral capsule 20 capsule 300 300 03-20-2019 no no no no name - information inform informat 03-26-2019 ation ion 04-06-2018 no no CoQ-10 no name - information inform (coenzym 05-05-2018 ation e Q10) oral capsule 100 100 no Cranberry Non-Standar 04-06-19 no no Azo no information preparation dized Food - informat information C ranberry name (1 source.) Allergenic 05-05-19 ion (cranberry Extract, 19 fruit Non-Standar concentrate) dized Plant oral Allergenic tablet,chewa Extract ble 250 250 no FLUoxetine Serotonin 03-19-20 no no fluoxetine n o information Reuptake - informat information (fluoxetine ) name (1 source.) Inhibitor 04-17-19 ion oral capsule 20 10 10 04-06-2018 no no fluoxeti no name - information inform ne 05-05-2018 ation (fluoxet ine) oral capsule 10 10 no Furosemide Loop 20 mg 04-07-19 no no FUROSEMID E no information Diuretic 19 - informat information TAB 20 MG name (1 source.) 04-13-19 ion (LASIX) no guaiFENesin no 600 mg 03-19-20 no no no no information information - informat information informat ion name (1 source.) 03-26-19 ion 20 no Lactated no 01-31-20 no no no no information Ringer's information - informat information inf ormation name (1 source.) Solution 02-07-20 ion 17 no LACTOBACILL no 03-19-20 no no no no information US BULGARIS information - informat informati on information name (1 source.) TAB 03-29-19 ion (LACTINEX 20 BULGARIS) no Melatonin no 3 mg 03-19-20 no no MELATONIN no information Translation information - informat information TAB 3 MG name (1 source.) s: [ 03-25-19 ion (MELATONIN) MELATONIN 20 3 3 TAB 3 MG (MELATONIN) ] 3 mg 03-19-2019 no no no no name - information inform informat 03-25-2019 ation ion 3 mg 04-06-2018 no no no no name - information inform informat 05-06-2018 ation ion no METOPROLOL- no 50 mg 03-19-20 no no METOPROL OL-X no information XL TAB 50 information - informat information L TAB 50 MG name (1 source.) MG (TOPROL 03-26-19 ion (TOPROL XL) XL) 20 50 50 no METOPROLOL- no 50 mg 04-07-19 no no METOPROL OL-X no information XL TAB 50 information - informat information L TAB 50 MG name (1 source.) MG (TOPROL 04-13-19 ion (TOPROL XL) XL) 19 50 50 no Normal no 03-19-20 no no no no information saline information - informat information infor mation name (1 source.) Translation 04-03-19 ion s: [ NORMAL 20 SALINE 1000CC IV BAG INJ 0.9 % (NS 1000CC IV BAG)] 03-19-2019 no no no no name - information inform informat 03-26-2019 ation ion 04-06-2018 no no no no name - information inform informat 04-21-2018 ation ion no ONDANSETRON no 03-19-20 no no no no information VIAL INJ 4 information 19 - informat informatio n information name (1 source.) MG/2CC 03-19-20 ion (ZOFRAN 2CC 19 VIAL) 04-06-2018 no no no no name - information inform informat 04-13-2018 ation ion no ONDANSETRON no 04-05-19 no no no no information VIAL INJ 4 information 19 - informat informatio n information name (1 source.) MG/2CC 04-05-19 ion (ZOFRAN 2CC 19 VIAL) no oxybutynin Cholinergic 5 mg 03-19-20 no no OXYB UTYNIN no information Muscarinic 19 - informat information TAB 5 MG name (1 source.) Antagonist 03-26-19 ion (DITROPAN) 5 20 5 5 mg 04-06-2018 no no OXYBUTYN no name - information inform IN TAB 5 05-05-2018 ation MG (DITROPA N) 5 5 no Potassium no 10 mEq 04-06-19 no no POTASSIUM no information Chloride information - informat information CHL ORIDE TAB name (1 source.) 05-05-19 ion 10 MEQ 19 (K-DUR) 10 10 no no 04-06-19 no no no information vits-iron information - informat information vi ts-iron name (1 source.) fum-folic- 05-05-19 ion fum-folic- oral tablet 19 oral tablet (Prenate) (Prenate) 1 1 no VITAMIN D-3 no 1000 04-06-19 no no VITAMIN D-3 no information TAB 1000 information [IU] - informat informati on TAB 1000 name (1 source.) UNITS 05-05-19 ion UNITS (VITAMIN 19 (VITAMIN D-3) D-3) 1999 1999 Problems Active Problems Problem Normalized Date Last Normalized Normalized Provider Fa cility Classification Problem(s) Recorded Problem Problem Sta tus Duration Other Abnormal Episodic Active [facility] nutritional; weight loss [facility] of endocrine; and [place] metabolic [facility] (61523) disorders (20 sources.) Acute Acute Episodic Active OTILIO CHRISSIE , H Via posthemorrhagi posthemorrhagi DO Tayla c anemia (3 c anemia Hospital - sources.) [place] ([address]) Adjustment Adjustment Chronic Active RUDI-JOSE GARCIA Hospit al disorders (10 disorder with [facility] of sources.) depressed mood [place] Translations: [facility] (46099) [ ADJUSTMENT DISORDER WITH DEPRESSED MOOD] Osteoporosis Age-related 08-09-2019 - Chronic Active REGINA SCHILLING , [facility] Via (5 sources.) osteoporosis MD [place] without Hospital - current [place] pathological () fracture Allergic Allergy status 08-09-2019 - Episodic Active REGINA HAUSER ZOILA , [facility] Via reactions (20 to narcotic MD [place] sources.) agent status Hospital - Translations: [place] [ ALLERGY (87360) STATUS TO OTHER ANTIBIOTIC AGENT, ALLERGY STATUS TO OTH DRUG/MEDS/BIOL SUB, ALLERGY TO SEAFOOD, OTHER NONMEDICINAL SUBSTANCE ALLERGY STA] Deficiency and Anemia, 08-09-2019 - Episodic Active SATINDERSHRUTI BOOGIEI , [facility] Via other anemia unspecified MD [place] (5 sources.) Hospital [facility] () Deficiency and Anemia, Episodic Active [facility] Via other anemia unspecified , MD [place] (9 sources.) Hospital [facility] () Anxiety Anxiety state, Chronic Active [facility] Via disorders (21 unspecified , MD [place] sources.) Translations: Hospital - [ GENERALIZED [place] ANXIETY () DISORDER, GENERALIZED ANXIETY DISORDER] Other Arthropathy, Chronic Active OTILIO DICKENS , [facility] Via non-traumatic unspecifiedDO [place] joint site Hospital - disorders (3 unspecified [place] sources.) (79768) Coronary Atheroscleroti 08-09-2019 - Chronic Active [facility] Not Available atherosclerosi sondra heart MD () s and other disease of heart disease [place] (26 sources.) coronary artery with unspecified angina pectoris Translations: [ CORONARY ATHEROSCLEROSI S OF [place] CORON, ATHEROSCLEROTI C HEART DISEASE OF [place] CORONARY ARTERY WITHOUT ANGINA PECTORIS, CORONARY ATHEROSCLEROSI S OF [place] CORONARY ARTERY, ANGINA PECTORIS, UNSPECIFIED] Cardiac Bradycardia, Episodic [facility] ital dysrhythmias unspecified [facility] of (20 sources.) [facility] () Nonspecific [place] pain, Episodic Active RUDI-JOSE GARCIA Hosp ital chest pain (24 unspecified [facility] of sources.) Translations: [place] [ UNSPECIFIED [facility] (94712) CHEST PAIN, OTHER CHEST PAIN] Other Constipation, Episodic Active RUDI-JOSE GARCIA Hosp ital gastrointestin unspecified [facility] of al disorders [place] (2 sources.) [facility] (43568) Other lower Cough Episodic Active [facility] Vi a respiratory , MD [place] disease (13 Hospital - sources.) [place] (93158) Allergic Diarrhea no information Active [facility] ital reactions (18 Translations: [facility] of sources.) [ ALLERGIC AND [place] DIETETIC [facility] (83092) GASTROENTERITI S AND COLITIS, DIARRHEA] Other Diarrhea, Episodic Active [facility] gastrointestin unspecified [facility] of al disorders [place] (24 sources.) [facility] (29744) Other Disorders of Chronic Active [facility] Via nutritional; magnesium DO Tayla endocrine; and metabolism Hospital - metabolic [place] disorders (3 (56190) sources.) Diverticulosis Diverticulitis Chronic Active [facility] and of colon [facility] of diverticulitis (without [place] (25 sources.) mention of [facility] (01450) hemorrhage) Translations: [ DIVERTICULITIS OF INTESTINE, PART UNSPECIFIED, WITHOUT PERFORATION OR ABSCESS WITHOUT BLEEDING] Genitourinary Dysuria Episodic Active TELMA SISSY [facility] lalo symptoms and Translations: [facility] of ill-defined [ DYSURIA] [place] conditions (6 County ([address]85) sources.) Epilepsy; Epilepsy, Chronic Active [facility] , [facility] Via convulsions (3 unspecified, DO Tayla sources.) without Hospital - mention of [place] intractable (33054) epilepsy Other upper Epistaxis Episodic Active [facility] V ia respiratory DO Tayla disease (3 Hospital - sources.) [place] (89481) Other Erythema Episodic Active [facility] inflammatory intertrigo [facility] of condition of [place] skin (33 [place] (79405) sources.) Esophageal Esophageal 08-09-2019 - Chronic Active [facility] Not Available disorders (22 reflux , (42200) sources.) Translations: [ GASTRO-ESOPHAG EAL REFLUX DISEASE WITH ESOPHAGITIS, GASTRO-ESOPHAG EAL REFLUX DISEASE WITHOUT] Essential Essential Chronic Active [facility] Not Preethi ilable hypertension (primary) MD (44878) (22 sources.) hypertension Translations: [ HYPERTENSION NOS, MALIGNANT ESSENTIAL HYPERTENSION] External cause Fall from Episodic Active [facility] , [facility] Via codes: other DO Tayla Overexertion slipping, Hospital - (3 sources.) tripping, or [place] stumbling (70621) Residual Family history Episodic Active BASHAR RAFAELA , [facility] Via codes; of ischemic MD [place]ne unclassified heart disease Hospital - (7 sources.) and other [place] diseases of (70041) the circulatory system Other Fecal urgency Episodic Active [facility] GARC[facility] Hosp ital gastrointestin [facility] of al disorders [place] (25 sources.) [facility] (57976) Other Fecal urgency Episodic Active [facility]I-OJSE [facility] Hosp ital gastrointestin [facility] of al disorders [place] (5 sources.) [facility] (82602) Other Full Episodic Active [facility] gastrointestin incontinence [facility] of al disorders of feces [place] (2 sources.) [facility] (54546) Other Functional Episodic [facility] diarrhea [facility] of al disorders [place] (25 sources.) [facility] (62559) Other Functional Episodic Active [facility] gastrointestin diarrhea [facility] of al disorders [place] (5 sources.) [facility] (99556) Gastrointestin Hemorrhage of Episodic Active OTILIO DICKENS , [facility] Via al hemorrhage gastrointestin DO Tayla (3 sources.) al tract, Hospital - unspecified [place] (80998) External cause Home accidents Episodic Active OTILIO DICKENS , [facility] Via codes: Place DO [facility] of occurrence Hospital - (3 sources.) [place] (29620) Disorders of Hyperlipidemia 08-09-2019 - Chronic Active OTILIO DICKENS , [facility] Via lipid , unspecified DO [facility] metabolism (20 Translations: Hospital - sources.) [ OTHER AND [place] UNSPECIFIED (79513) HYPERLIPIDEMIA , PURE HYPERCHOLESTER OLEM, MIXED HYPERLIPIDEMIA ] Hypertension Hypertensive 08-09-2019 - Chronic Active BASHAR RAFAELA , [facility] Via with heart disease MD [place]ne complications without heart Hospital - and secondary failure [place] hypertension (91223) (5 sources.) Fluid and Hyposmolality Episodic [facility] Hosp ital electrolyte and/or [facility] of disorders (20 hyponatremia [place] sources.) Translations: [facility] (34288) [ HYPOVOLEMIA, HYPO-OSMOLALIT Y AND HYPONATREMIA , HYPOVOLEMIA , HYPOSMOLALITY AND/OR HYPONATREMIA, HYPOSMOLALITY AND/OR HYPONATREMIA, HYPERPOTASSEMI A, HYPOPOTASSEMIA ] Intestinal Infectious Episodic Active [facility] Hospit al infection (11 gastroenteriti [facility] of sources.) s and colitis, [place] unspecified [facility] (96669) Other Irritable Chronic Active OTILIO DICKENS , [facility]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 [facility] of al disorders with diarrhea [place] (29 sources.) [facility] (29332) Abdominal pain Left lower Episodic Active [facility] Ho spital (28 sources.) quadrant pain [facility] of Translations: [place] [ ABDOMINAL County (03675) PAIN, LEFT LOWER QUADRANT, ABDOMINAL PAIN, LEFT LOWER QUADRANT] Other shelter 08-09-2019 - Episodic Active BASHAR RAFAELA , [facility] Via aftercare (5 (current) use MD Tayla sources.) of [facility] (97208) Other Long-term Episodic Active OTILIO DICKENS , [facility] Via aftercare (3 (current) use DO Tayla sources.) of [facility] antiplatelet/a [place] ntithrombotic (70574) Other Long-term Episodic Active OTILIO DICKENS , [facility] Via aftercare (3 (current) use DO Tayla sources.) of [facility] (32407) Spondylosis; Low back pain 08-09-2019 - Episodic Active NUZHAT VAZQUEZ Not Available intervertebral Translations: (32533) disc [ LUMBAGO, disorders; DORSALGIA, other back UNSPECIFIED, problems (29 INTERVERTEBRAL sources.) DISC DISORDERS W RADICULO] Mood disorders Major 08-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 vomiting (18 Translations: [facility] of sources.) [ NAUSEA [place] ALONE, NAUSEA [facility] (00168) ALONE] Noninfectious Noninfective Episodic Active [facility] H ospital gastroenteriti gastroenteriti [facility] of s (17 s and colitis, [place] sources.) unspecified [facility] (01095) Translations: [ OTHER AND UNSPECIFIED NONINFECTIOUS GASTROENTERITI S AND COLITIS] Heart valve Nonrheumatic 08-09-2019 - Chronic Active [facility] disorders (24 aortic (valve) [facility] of sources.) insufficiency [place] Translations: [facility] (86054) [ OTHER NONRHEUMATIC AORTIC VALVE DISORDER, AORTIC VALVE DISORDERS, NONRHEUMATIC AORTIC VALVE DISORDER, UNSPECIFIED, NONRHEUMATIC AORTIC (VALVE) INSUFFICIENCY, OTHER NONRHEUMATIC AORTIC VALVE DISORDER, COMB RHEUMATIC DISORD OF MITRAL, AORTIC ] Respiratory Other Chronic Active JUAN PRINCE Vi a failure; dependence on DO Tayla insufficiency; machines, Hospital - arrest (adult) supplemental [place] (3 sources.) oxygen (26904) Malaise and Other fatigue Episodic Active [facility] spital fatigue (20 Translations: [facility] of sources.) [ OTHER [place] MALAISE AND [facility] (12589) FATIGUE, OTHER MALAISE AND FATIGUE] Other Other long 08-09-2019 - Episodic Active JUAN DICKENS Via aftercare (5 term (current) MD [place] sources.) drug therapy [facility] (17198) Other Other Episodic Active [facility] inflammatory specified District [facility]1 of condition of erythematous [place] skin (17 conditions County ([address]73) sources.) Other Pain in joint, Episodic Active [facility] Hos pital non-traumatic pelvic region [facility] of joint and thigh [place] disorders (6 [place] (63985) sources.) Other Pain in left [facility] non-traumatic hip [facility] of joint [place] disorders (6 [place] (51543) sources.) Parkinson`s Parkinson's Chronic Active [facility] Hosp ital disease (23 disease [facility] of sources.) Translations: [place] [ PARALYSIS [facility] (90799) AGITANS] Screening and Personal Episodic Active JUAN PRINCE Via history of history of [facility] mental health tobacco use Hospital - and substance [place] abuse codes (3 (53619) sources.) Pneumonia Pneumonia, Episodic Active [facility] Hospit al (except that unspecified [facility] of caused by organism [place] tuberculosis Translations: County (08007) or sexually [ PNEUMONIA, transmitted ORGANISM disease) (22 UNSPECIFIED] sources.) Spondylosis; 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 of skin (20 of sacral District [facility] of sources.) region, [place] unspecified [facility] (77210) stage Translations: [ PRESSURE ULCER, LOWER BACK] Pulmonary Primary 08-09-2019 - Chronic Active 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 [facility] Via circulatory artery MD [place] disease (5 Hospital - sources.) [place] (37645) Thyroid Unspecified 08-09-2019 - Chronic Active [facility] Not Available disorders (34 acquired , (55697) sources.) hypothyroidism Translations: [ HYPOTHYROIDISM , UNSPECIFIED, UNSPECIFIED HYPOTHYROIDISM ] Peripheral and Unspecified 08-09-2019 - Chronic Active BASSHRUTI RUSSO , [facility] Via visceral atherosclerosi MD [place] atherosclerosi s of [facility] - s (5 sources.) arteries of [place] extremities, (11825) bilateral legs Delirium Unspecified 08-09-2019 - Chronic Active [facility] dementia and dementia with District [facility] of amnestic and behavioral [place] other disturbance [facility] (80072) cognitive Translations: disorders (23 [ DEMENTIA, sources.) UNSPECIFIED, IN CONDITIONS CLASSIFIED ELSEWHERE WITH BEHAVIORAL DISTURBANCE, DEMENTIA, UNSPECIFIED, WITHOUT BEHAVIORA, UNSPECIFIED DEMENTIA WITHOUT BEHAVIORAL ] Open wounds of Unspecified 08-09-2019 - Episodic Active BASSHRUTI RUSSO , [facility] Via extremities (5 open wound, MD [place] sources.) right foot, Hospital - initial [place] encounter (69529) Osteoarthritis Unspecified 08-09-2019 - Chronic Active [facility] (20 sources.) osteoarthritis District [facility] of , unspecified [facility] (46035) Translations: [ OSTEOARTHROSIS , LOCALIZED, NOT SPECIFIED WHETHER PRIMARY OR SECONDARY, INVOLVING UNSPECIFIED SITE] Past or Other Problems Problem Normalized Date Last Normalized Normalized Provider Fa cility Classification Problem(s) Recorded Problem Problem Sta tus Duration Unclassified Angina no information no information [facility] (6 sources.) pectoris [facility] (62257) Epilepsy; Other Episodic Completed AUDRA BROWN Not Avail able convulsions (1 convulsions , (69806) source.) Other injuries Other injury Episodic Completed NUZHAT VAZQUEZ No t Available and conditions of other sites (16622) due to of trunk external causes (4 sources.) Adverse Salicylates no information no information OTIL[facility] effects of causing DO [facility] medical drugs adverse Hospital - (12 sources.) effects in [place] therapeutic (73603) use Translations: [ ADV EFF BLOOD AGENT NEC, ADV EFF ANTIRHEUMATICS , ADV EFF NON-NARC ANALGSC] Other injuries Unspecified Episodic Completed NUZHAT VAZQUEZ Not Available and conditions injury of (35261) due to lower back, external initial causes (4 encounter sources.) Unclassified no information no information no information [facility] (8 sources.) [facility] ([id number]) Procedures Procedure Normalized Procedure Procedure Result Performer Facility Date 07-16-2014 Control of epistaxis no information no name [facility] by anterior nasal [facility] packing (58396) Immunizations No Information Results Test Name Value Interpretation Reference Range Date Time Fa cility (Normalized) (Normalized) (Medline Reference) not yet categorized on 2019-09-05 no information Chart note added (no code) [facility] ([id number]) not yet categorized on 2019-08-30 no information Chart note added (no code) [facility] (51290) not yet categorized on 2019-08-29 no information Chart note added (no code) [facility] (82777) not yet categorized on 2019-08-26 no information Chart note added (no code) [facility] (13763) no information Chart note added (no code) [facility] (13309) not yet categorized on 2019-08-24 no information Chart note added (no code) [facility] (02710) no information Chart note added (no code) [facility] (52801) not yet categorized on 2019-08-22 no information Chart note added (no code) [facility] (19542) not yet categorized on 2019-08-19 no information Chart note added (no code) [facility] (75889) not yet categorized on 2019-08-17 no information Chart note added (no code) [facility] (48054) not yet categorized on 2019-08-16 no information Chart note added (no code) [facility] (67559) not yet categorized on 2019-08-12 no information Chart note added (no code) [facility] (42750) not yet categorized on 2019-08-10 no information Chart note added (no code) [facility] (35442) not yet categorized on 2019-08-09 no information Chart note added (no code) [facility] (46900) not yet categorized on 2019-08-08 no information Chart note added (no code) [facility] (25390) not yet categorized on 2019-08-05 no information Chart note added (no code) [facility] (82343) not yet categorized on 2019-08-03 no information Chart note added (no code) [facility] (62742) laboratory on 2019-08-03 Anion gap 14 mmol/L (no code) 3 - 11 mmol/L 08-03-2019 Hospital [Moles/Vol] 07:110400 [facility] (89288) Calcium 8.9 mg/dL (no code) 8.5 - 10.2 mg/dL 08-03-2019 Hospi lalo [Mass/Vol] 07: [facility] (66229) Chloride 102 mmol/L (no code) 95 - 106 mmol/L 08-03-2019 Hospi lalo [Moles/Vol] 07:110400 [facility] (42642) Creatinine 0.76 mg/dL (no code) 08-03-2019 Hospital [Mass/Vol] 07: [facility] (38997) GFR/1.73 sq 73 (no code) 90 - 120 08-03-2019 Hospital M.predicted MDRD mL/min/{1.73_m2} mL/min/{1.73_m2} 07: [facility] of (S/P/Bld) [Vol [facility] rate/Area] (60491) Glucose 99 mg/dL (no code) 60 - 125 mg/dL 08-03-2019 Hospita l [Mass/Vol] 07: [facility] (75295) HCO3 (P) 22 (no code) 08-03-2019 Hospital [Moles/Vol] 07: [facility] (22584) Osmolality Calc 275 (L) 08-03-2019 Hospital [Osmolality] 07: [facility] (33967) Potassium 4.7 mmol/L (no code) 3.7 - 5.2 mmol/L 08-03-2019 Hosp ital [Moles/Vol] 07: [facility] (21372) Sodium 133 mmol/L (L) 135 - 145 mmol/L 08-03-2019 Hosp ital [Moles/Vol] 07: [facility] (81011) Urea nitrogen 12 mg/dL (no code) 7 - 20 mg/dL 08-03-2019 Hospi lalo [Mass/Vol] 07: [facility] (10917) not yet categorized on 2019-08-02 no information Chart note added (no code) [facility] (39406) not yet categorized on 2019-08-01 no information Chart note added (no code) [facility] (28611) not yet categorized on 2019-07-29 no information Chart note added (no code) [facility] (18703) not yet categorized on 2019-07-26 no information Chart note added (no code) [facility] (86118) not yet categorized on 2019-07-25 no information Chart note added (no code) [facility] (89411) not yet categorized on 2019-07-22 no information Chart note added (no code) [facility] (87079) not yet categorized on 2019-07-21 no information Chart note added (no code) [facility] (61422) laboratory on 2019-07-20 Albumin 3.6 g/dL (NEG) 3.4 - 5.4 g/dL 07-20-2019 PENDING LOCATION [Mass/Vol] 05: [facility] (53734) ALP [Catalytic 71 U/L (NEG) 44 - 147 U/L 07-20-2019 PEND ING LOCATION activity/Vol] 05: [facility] () ALT [Catalytic 9 U/L (NEG) 4 - 40 U/L 07-20-2019 PENDIN G LOCATION activity/Vol] 05: [facility] (94439) Anion gap 9 mmol/L (NEG) 3 - 11 mmol/L 07-20-2019 PENDING LOCATION [Moles/Vol] 05: [facility] () aPTT Coag (PPP) 28 s (NEG) 25 - 35 s [facility]20[facility] 05[facility] () AST [Catalytic 23 U/L (NEG) 10 - 34 U/L 07-20-2019 PENDI LOCATION activity/Vol] 05: [facility] (43168) Bilirubin 0.3 mg/dL (NEG) 0.1 - 1.2 mg/dL 07-20-2019 [facility] LOCATION [Mass/Vol] 05: [facility] (53278) Calcium 9.4 mg/dL (NEG) 8.5 - 10.2 mg/dL 07-20-2019 PENDI LOCATION [Mass/Vol] 05: [facility] (70706) Calcium 9.7 mg/dL (NEG) 8.5 - 10.2 mg/dL 07-20-2019 PENDI LOCATION [Mass/Vol] 05: [facility] (80430) Chloride 101 mmol/L (NEG) 95 - 106 mmol/L [facility] (05434) Cholesterol 173 mg/dL (no code) 180 - 200 mg/dL 07-20-2019 PEND ING LOCATION [Mass/Vol] 05:23-0400 [facility] (21206) Cholesterol in 65 mg/dL (H) 07-20-2019 PENDING LOC ATION HDL [Mass/Vol] 05:23-0400 [facility] (66257) Cholesterol in 95 mg/dL (NEG) 0 - 100 mg/dL 07-20-2019 [facility] LOCATION LDL [Mass/Vol] 05:23-0400 [facility] (84475) Cholesterol in 15 mg/dL (NEG) 07-20-2019 PENDING LOC ATION VLDL [Mass/Vol] 05:23-0400 [facility] (56389) CO2 [Moles/Vol] 23 mmol/L (NEG) 23 - 29 mmol/L 07-20-2019 P ENDING LOCATION 05:23-0400 [facility] (31432) Creatinine 0.77 mg/dL (NEG) 07-20-2019 PENDING LOCATI ON [Mass/Vol] 05:23-0400 [facility] (85696) Creatinine and > (no code) 07-20-2019 PENDING LOC ATION Glomerular 05:23-0400 [facility] (47240) filtration rate.predicted panel - Serum, Plasma or Blood Glucose 93 mg/dL (NEG) 60 - 125 mg/dL 07-20-2019 PENDING LOCATION [Mass/Vol] 05:23-0400 [facility] (21605) INR Coag 1.0 (NEG) 07-20-2019 PENDING LOCATI ON (Platelet poor 05:23-0400 [facility] (98657) plasma or blood) [Relative time] MRSA isol Org Negative (no code) 07-20-2019 PENDING LOCA TION specific cx Ql 05:23-0400 [facility] (91640) (Unsp spec) Potassium 4.4 mmol/L (NEG) 3.7 - 5.2 mmol/L 07-20-2019 PEND ING LOCATION [Moles/Vol] 05:23-0400 [facility] (86574) Protein 6.4 g/dL (NEG) 6.4 - 8.3 g/dL 07-20-2019 PENDING LOCATION [Mass/Vol] 05:23-0400 [facility] (24640) PT Coag (PPP) 13.2 s (NEG) 9.4 - 12.5 s 07-20-2019 PENDI NG LOCATION [Time] 05:-399 [facility] (76811) Sodium 133 mmol/L (L) 135 - 145 mmol/L 07-20-2019 PEND ING LOCATION [Moles/Vol] 05:23-040 [facility] (38992) Triglyceride 75 mg/dL (NEG) 0 - 150 mg/dL 07-20-2019 PENDI NG LOCATION [Mass/Vol] 05:23-0400 [facility] (56161) Urea nitrogen 12 mg/dL (NEG) 7 - 20 mg/dL 07-20-2019 PENDI NG LOCATION [Mass/Vol] 05:-0400 [facility] (23431) Urea 16 mg/mg (no code) 6 - 22 mg/mg 07-20-2019 PENDING L OCATION nitrogen/Creatin 05: [facility] (05691) ine [Mass ratio] not yet categorized on 2019-07-18 no information Chart note added (no code) [facility] (22894) not yet categorized on 2019-07-15 no information Chart note added (no code) [facility] (20962) not yet categorized on 2019-07-07 no information Chart note added (no code) [facility] (39928) not yet categorized on 2019-07-04 no information Chart note added (no code) [facility] (41256) not yet categorized on 2019-07-01 no information Chart note added (no code) [facility] (80610) not yet categorized on 2019-06-30 no information Chart note added (no code) [facility] (83006) not yet categorized on 2019-06-29 no information Chart note added (no code) [facility] (32519) no information Chart note added (no code) [facility] (43694) not yet categorized on 2019-06-17 no information Chart note added (no code) [facility] (51010) not yet categorized on 2019-06-15 no information Chart note added (no code) [facility] (48973) not yet categorized on 2019-06-13 no information Chart note added (no code) [facility] (66354) not yet categorized on 2019-06-10 no information Chart note added (no code) [facility] (89791) not yet categorized on 2019-06-08 no information Chart note added (no code) [facility] (38407) not yet categorized on 2019-06-06 no information Chart note added (no code) [facility] (28790) not yet categorized on 2019-06-03 no information Chart note added (no code) [facility] (81774) no information Chart note added (no code) [facility] (14689) not yet categorized on 2019-05-26 no information Chart note (no code) [facility] updated ([id number]) not yet categorized on 2019-05-25 no information Chart note added (no code) [facility] (68873) no information Chart note added (no code) [facility] (85118) not yet categorized on 2019-05-24 no information Chart note added (no code) [facility] (60073) not yet categorized on 2019-05-23 no information Chart note added (no code) [facility] (50487) not yet categorized on 2019-05-20 no information Chart note added (no code) [facility] (72589) not yet categorized on 2019-05-19 no information Chart note added (no code) [facility] (62918) no information Chart note added (no code) [facility] (65331) not yet categorized on 2019-05-18 no information Chart note added (no code) [facility] (90969) not yet categorized on 2019-05-17 no information Chart note added (no code) [facility] (67567) not yet categorized on 2019-05-16 no information Chart note added (no code) [facility] (70976) no information Chart note added (no code) [facility] (98252) not yet categorized on 2019-05-10 no information Chart note added (no code) [facility] (54902) not yet categorized on 2019-05-09 no information Chart note added (no code) [facility] (17025) no information Chart note added (no code) [facility] (62829) not yet categorized on 2019-05-03 no information Chart note added (no code) [facility] (95744) not yet categorized on 2019-05-02 no information Chart note added (no code) [facility] (42046) not yet categorized on 2019-04-29 no information Chart note added (no code) [facility] (40086) not yet categorized on 2019-04-22 no information Chart note added (no code) [facility] (75194) not yet categorized on 2019-04-21 no information Chart note added (no code) [facility] (29072) not yet categorized on 2019-04-20 no information Chart note added (no code) [facility] (06909) not yet categorized on 2019-04-19 no information Chart note added (no code) [facility] (97778) not yet categorized on 2019-04-18 no information Chart note added (no code) [facility] (88119) no information Chart note added (no code) [facility] (65115) not yet categorized on 2019-04-15 no information Chart note added (no code) [facility] (36048) not yet categorized on 2019-04-14 no information Chart note added (no code) [facility] (61270) no information Chart note added (no code) [facility] (89679) not yet categorized on 2019-04-11 no information Chart note added (no code) [facility] (83559) no information Chart note added (no code) [facility] (40064) not yet categorized on 2019-04-08 no information Chart note added (no code) [facility] (12053) not yet categorized on 2019-04-05 no information Chart note added (no code) [facility] (73573) no information Chart note (no code) [facility] updated (40100) not yet categorized on 2019-04-04 no information Chart note added (no code) [facility] (74213) no information Chart note added (no code) [facility] (45549) not yet categorized on 2019-04-01 no information Chart note added (no code) [facility] (76869) no information Chart note added (no code) [facility] (36399) not yet categorized on 2019-03-31 no information Chart note added (no code) [facility] (94848) not yet categorized on 2019-03-30 no information Chart note added (no code) [facility] (62378) not yet categorized on 2019-03-29 no information Chart note added (no code) [facility] (76334) not yet categorized on 2019-03-28 no information Chart note added (no code) [facility] (86032) no information Chart note added (no code) [facility] (12450) laboratory on 2019-03-26 Levetiracetam 18.2 ug/mL (no code) 12 - 46 ug/mL 03-26-2019 [facility] (84408) [Mass/Vol] 08:15-0500 not yet categorized on 2019-03-25 no information Chart note added (no code) [facility] (01395) no information Chart note added (no code) [facility] (81146) laboratory on 2019-03-25 Basophils (Bld) 0.0 10*3/uL (no code) 0 - 0.3 10*3/uL 03-25-2019 Hospital [#/Vol] 09:08-0500 [facility] (23854) Basophils/100 0.20 % (no code) 0.5 - 1 % 03-25-2019 Hospital WBC (Bld) 09:08 [facility] (16286) Eosinophils 0.2 10*3/uL (no code) 0.05 - 0.5 03-25-2019 Hospita l (Bld) [#/Vol] 10*3/uL 09:080500 [facility] (26206) Eosinophils/100 0.9 % (no code) 1 - 4 % 03-25-2019 Hospit al WBC (Bld) 09:080500 [facility] (51112) Erythrocyte 12.1 % (no code) 11.6 - 14.6 % 03-25-2019 Hospit al distribution 09:08050 [facility] of width (RBC) [facility] [Ratio] (50335) Hematocrit (Bld) 33.5 % (L) 36.1 - 50.3 % 03-25-2019 H ospital [Volume 09:08-0500 [facility] of fraction] [facility] (81897) Hemoglobin (Bld) 11.3 g/dL (L) 12.1 - 17.2 g/dL 03-25-2019 Hospital [Mass/Vol] 09:08050 [facility] (05007) Lymphocytes 2.17 10*3/uL (no code) 0.9 - 2.9 03-25-2019 Hospita l (Bld) [#/Vol] 10*3/uL 09:08 [facility] (04267) Lymphocytes/100 12.8 % (no code) 20 - 40 % 03-25-2019 Hospit al WBC (Bld) 09:08 [facility] (90311) MCH (RBC) 33.8 pg (H) 27 - 31 pg 03-25-2019 Hospital [Entitic mass] 09:08 [facility] (38507) MCHC (RBC) 33.7 g/dL (no code) 32 - 36 g/dL 03-25-2019 Hospital [Mass/Vol] 09:080500 [facility] (98826) MCV (RBC) 100.3 fL (H) 80 - 100 fL 03-25-2019 Hospital [Entitic vol] 09:08 [facility] (08182) Monocytes (Bld) 1.2 10*3/uL (H) 0.3 - 0.9 03-25-2019 Hosp ital [#/Vol] 10*3/uL 09:080 [facility] (12116) Monocytes/100 7.1 % (no code) 2 - 8 % 03-25-2019 Hospital WBC (Bld) 09:08 [facility] (78240) Neutrophils 13.44 10*3/uL (H) 1.7 - 7 10*3/uL 03-25-2019 Hospital (Bld) [#/Vol] 09:080500 [facility] (89075) Neutrophils/100 79.0 % (no code) 40 - 60 % 03-25-2019 Hospit al WBC (Bld) 09:08 [facility] (57240) Platelet mean 10.2 fL (H) 7.2 - 11.7 fL 03-25-2019 Hosp ital volume (Bld) 09:08 [facility] [Entitic vol] [facility] (35458) Platelets (Bld) 483 10*3/uL (H) 150 - 450 03-25-2019 Hosp ital [#/Vol] 10*3/uL 09: [facility] (29670) RBC (Bld) 3.34 10*6/uL (L) 4.2 - 6.1 03-25-2019 Hospital [#/Vol] 10*6/uL 09: [facility] (97172) WBC (Bld) 17.01 10*3/uL (H) 3.5 - 10.5 03-25-2019 Hospita l [#/Vol] 10*3/uL 09: [facility] (59249) not yet categorized on 2019-03-22 no information Chart note added (no code) [facility] (51872) no information Chart note added (no code) [facility] (69423) not yet categorized on 2019-03-21 no information Chart note added (no code) [facility] (83743) not yet categorized on 2019-03-20 FINAL CULTURE Moderate Gram (no code) 03-20-2019 Hospital RESULTS Positive Mixed 01: [facility] NO Pathogens ([id number]) Isolated No Further Workup done MEDIA PLATED Setup at 06:59 (no code) 03-20-2019 Hospital on 03/20/2019 01:55050 [facility] (85133) PRELIM CULTURE Moderate Gram (no code) 03-20-2019 Hospital RESULTS Positive Mixed : [facility] [place] No Pathogen (65615) Isolated at 24 hours laboratory on 2019-03-20 Albumin BCG dye 3.4 (L) 03-20-2019 Hospital [Mass/Vol] 02: [facility] (25892) ALP [Catalytic 69 U/L (no code) 44 - 147 U/L 03-20-2019 Hosp ital activity/Vol] 02: [facility] (97974) ALT [Catalytic 12 U/L (no code) 4 - 40 U/L 03-20-2019 Hospit al activity/Vol] 02: [facility] (36359) Anion gap 16 mmol/L (H) 3 - 11 mmol/L 03-20-2019 Hospital [Moles/Vol] 02: [facility] (90122) AST [Catalytic 25 U/L (no code) 10 - 34 U/L 03-20-2019 Hospi lalo activity/Vol] 02: [facility] (66770) Basophils (Bld) 0.0 10*3/uL (no code) 0 - 0.3 10*3/uL 03-20-2019 Hospital [#/Vol] 02: [facility] () Basophils/100 0.20 % (no code) 0.5 - 1 % 03-20-2019 Hospital WBC (Bld) 02: [facility] (08885) Bilirubin 0.3 mg/dL (no code) 0.1 - 1.2 mg/dL 03-20-2019 Hospit al [Mass/Vol] 02: [facility] (29190) Calcium 8.6 mg/dL (no code) 8.5 - 10.2 mg/dL 03-20-2019 Hospi lalo [Mass/Vol] 02: [facility] (97025) Chloride 98 mmol/L (no code) 95 - 106 mmol/L 03-20-2019 Hospit al [Moles/Vol] 02: [facility] (77345) Creatinine 0.71 mg/dL (no code) 03-20-2019 Hospital [Mass/Vol] 02: [facility] (10978) Eosinophils 0.1 10*3/uL (no code) 0.05 - 0.5 03-20-2019 Hospita l (Bld) [#/Vol] 10*3/uL 02: [facility] (19033) Eosinophils/100 0.4 % (no code) 1 - 4 % 03-20-2019 Hospit al WBC (Bld) 02: [facility] (34044) Erythrocyte 11.7 % (no code) 11.6 - 14.6 % 03-20-2019 Hospit al distribution 02: [facility] width (RBC) [facility] [Ratio] (79928) GFR/1.73 sq 79 (no code) 90 - 120 03-20-2019 Hospital M.predicted MDRD mL/min/{1.73_m2} mL/min/{1.73_m2} 02: [facility] (S/P/Bld) [Vol [facility] rate/Area] () Globulin (S) 2.5 g/dL (no code) 2 - 3.5 g/dL 03-20-2019 Hospit al [Mass/Vol] 02: [facility] () Glucose 117 mg/dL (H) 60 - 125 mg/dL 03-20-2019 Hospita l [Mass/Vol] 02: [facility] (09165) HCO3 (P) 22 (no code) 03-20-2019 Hospital [Moles/Vol] 02: [facility] (21718) Hematocrit (Bld) 30.0 % (L) 36.1 - 50.3 % 03-20-2019 H ospital [Volume 02: [facility] fraction] [facility] () Hemoglobin (Bld) 10.1 g/dL (L) 12.1 - 17.2 g/dL 03-20-2019 Hospital [Mass/Vol] 02: [facility] (27316) Lymphocytes 2.86 10*3/uL (no code) 0.9 - 2.9 03-20-2019 Hospita l (Bld) [#/Vol] 10*3/uL 02: [facility] (59710) Lymphocytes/100 11.9 % (no code) 20 - 40 % 03-20-2019 Hospit al WBC (Bld) 02: [facility] (92769) MCH (RBC) 33.8 pg (H) 27 - 31 pg 03-20-2019 Hospital [Entitic mass] 02: [facility] (84524) MCHC (RBC) 33.7 g/dL (no code) 32 - 36 g/dL 03-20-2019 Hospital [Mass/Vol] 02: [facility] (80453) MCV (RBC) 100.3 fL (H) 80 - 100 fL 03-20-2019 Hospital [Entitic vol] 02: [facility] (54882) Monocytes (Bld) 1.9 10*3/uL (H) 0.3 - 0.9 03-20-2019 Hosp ital [#/Vol] 10*3/uL 02: [facility] (45982) Monocytes/100 8.1 % (no code) 2 - 8 % 03-20-2019 Hospital WBC (Bld) 02: [facility] (13856) Neutrophils 19.04 10*3/uL (H) 1.7 - 7 10*3/uL 03-20-2019 Hospital (Bld) [#/Vol] 02: [facility] (22878) Neutrophils/100 79.4 % (no code) 40 - 60 % 03-20-2019 Hospit al WBC (Bld) 02: [facility] (56594) Osmolality Calc 274 (L) 03-20-2019 Hospital [Osmolality] 02: [facility] (16721) Platelet mean 10.7 fL (H) 7.2 - 11.7 fL 03-20-2019 Hosp ital volume (Bld) 02: [facility] [Entitic vol] [facility] (67443) Platelets (Bld) 405 10*3/uL (H) 150 - 450 03-20-2019 Hosp ital [#/Vol] 10*3/uL 02:050 [facility] (83004) Potassium 3.7 mmol/L (no code) 3.7 - 5.2 mmol/L 03-20-2019 Hosp ital [Moles/Vol] 02: [facility] (50245) Protein 5.9 g/dL (L) 6.4 - 8.3 g/dL 03-20-2019 Hospita l [Mass/Vol] 02: [facility] (53376) RBC (Bld) 2.99 10*6/uL (L) 4.2 - 6.1 03-20-2019 Hospital [#/Vol] 10*6/uL 02: [facility] (19415) Sodium 132 mmol/L (L) 135 - 145 mmol/L 03-20-2019 Hosp ital [Moles/Vol] 02: [facility] (64128) Urea nitrogen 11 mg/dL (no code) 7 - 20 mg/dL 03-20-2019 Hospi lalo [Mass/Vol] 02: [facility] (26020) WBC (Bld) 23.98 10*3/uL (HH) 3.5 - 10.5 03-20-2019 Hospita l [#/Vol] 10*3/uL 02: [facility] (37842) not yet categorized on 2019-03-19 CULTURE SOURCE RT WRIST (no code) 03-19-2019 Hospital 10: [facility] (58368) CULTURE SOURCE LT FOREARM (no code) 03-19-2019 Hospital 10: [facility] (54510) FINAL CULTURE Negative (no code) 03-19-2019 Hospital RESULTS 10: [facility] (32598) LEVETIRACETAM, S 18.2 (no code) 03-19-2019 Hospital 10: [facility] (05084) PRELIM CULTURE Negative (no code) 03-19-2019 Hospital RESULTS 10: [facility] (83066) Urine Volume Urine Volume (no code) 03-19-2019 Hospital Sufficient 11: [facility] (10mL) [facility] (17730) no information Urine Saved if (A) 03-19-2019 Hospital Culture Needed 11: [facility] (48hrs from time [facility] of collection) (81239) laboratory on 2019-03-19 Albumin BCG dye 3.5 (L) 03-19-2019 Hospital [Mass/Vol] 10: [facility] (42594) ALP [Catalytic 75 U/L (no code) 44 - 147 U/L 03-19-2019 Hosp ital activity/Vol] 10: [facility] (03887) ALT [Catalytic 13 U/L (no code) 4 - 40 U/L 03-19-2019 Hospit al activity/Vol] 10: [facility] (93980) Anion gap 17 mmol/L (H) 3 - 11 mmol/L 03-19-2019 Hospital [Moles/Vol] 10: [facility] (58711) AST [Catalytic 27 U/L (no code) 10 - 34 U/L 03-19-2019 Hospi lalo activity/Vol] 10: [facility] (81161) Bacteria LM Ql Negative (no code) 03-19-2019 Hospital (Urine sed) 11: [facility] (63250) Basophils (Bld) 0.0 10*3/uL (no code) 0 - 0.3 10*3/uL 03-19-2019 Hospital [#/Vol] 10: [facility] (70524) Basophils/100 0.10 % (no code) 0.5 - 1 % 03-19-2019 Hospital WBC (Bld) 10: [facility] (99222) Bilirubin 0.4 mg/dL (no code) 0.1 - 1.2 mg/dL 03-19-2019 Hospit al [Mass/Vol] 10: [facility] (85367) Bilirubin N/A (A) 03-19-2019 Hospital Confirm Ql (U) 11: [facility] (19517) Bilirubin Ql (U) Negative (no code) 03-19-2019 Hospital 11: [facility] (31957) Calcium 9.2 mg/dL (no code) 8.5 - 10.2 mg/dL 03-19-2019 Hospi lalo [Mass/Vol] 10: [facility] (28422) Casts LM Ql Hyaline (no code) 03-19-2019 Hospital (Urine sed) 11: [facility] ([id number]) Chloride 100 mmol/L (no code) 95 - 106 mmol/L 03-19-2019 Hospi lalo [Moles/Vol] 10: [facility] (70221) Clarity (U) Clear (no code) 03-19-2019 Hospital 11: [facility] (11972) Color (U) Yellow (no code) 03-19-2019 Hospital 11: [facility] (87712) Creatinine 0.74 mg/dL (no code) 03-19-2019 Hospital [Mass/Vol] 10: [facility] (24883) Eosinophils 0.1 10*3/uL (no code) 0.05 - 0.5 03-19-2019 Hospita l (Bld) [#/Vol] 10*3/uL 10: [facility] (05557) Eosinophils/100 0.7 % (no code) 1 - 4 % 03-19-2019 Hospit al WBC (Bld) 10: [facility] (53338) Erythrocyte 11.5 % (L) 11.6 - 14.6 % 03-19-2019 Hospit al distribution 10: [facility] width (RBC) [facility] [Ratio] (30041) FLUAV and FLUBV Negative (no code) 03-19-2019 Hospital Ag IA.rapid Nom 10: [facility] (Nose) [facility] (47999) GFR/1.73 sq 75 (no code) 90 - 120 03-19-2019 Hospital M.predicted MDRD mL/min/{1.73_m2} mL/min/{1.73_m2} 10: [facility] (S/P/Bld) [Vol [facility] rate/Area] ([id number]) Globulin (S) 3.1 g/dL (no code) 2 - 3.5 g/dL 03-19-2019 Hospit al [Mass/Vol] 10: [facility] (26915) Glucose 117 mg/dL (H) 60 - 125 mg/dL 03-19-2019 Hospita l [Mass/Vol] 10: [facility] (69793) Glucose Test Negative (no code) 03-19-2019 Hospital strip (U) 11: [facility] [Mass/Vol] [facility] (42621) HCO3 (P) 22 (no code) 03-19-2019 Hospital [Moles/Vol] 10: [facility] (06406) Hematocrit (Bld) 32.8 % (L) 36.1 - 50.3 % 03-19-2019 H ospital [Volume 10: [facility] fraction] [facility] (45956) Hemoglobin (Bld) 11.2 g/dL (L) 12.1 - 17.2 g/dL 03-19-2019 Hospital [Mass/Vol] 10: [facility] (71106) Hemoglobin Ql Negative (no code) 03-19-2019 Hospital (U) 11: [facility] (77078) Ketones (U) Negative (no code) 03-19-2019 Hospital [Mass/Vol] 11: [facility] (90448) Lactate 11.5 (no code) 03-19-2019 Hospital [Mass/Vol] 10: [facility] (94600) Leukocyte Negative (no code) 03-19-2019 Hospital esterase Test 11: [facility] strip Ql (U) [facility] (75371) Lymphocytes 1.91 10*3/uL (no code) 0.9 - 2.9 03-19-2019 Hospita l (Bld) [#/Vol] 10*3/uL 10: [facility] (23577) Lymphocytes/100 10.0 % (no code) 20 - 40 % 03-19-2019 Hospit al WBC (Bld) 10: [facility] (74942) M. pneumoniae Ab Negative (no code) 03-19-2019 Hospital Ql (S) 10: [facility] (17470) MCH (RBC) 33.7 pg (H) 27 - 31 pg 03-19-2019 Hospital [Entitic mass] 10: [facility] (89188) MCHC (RBC) 34.1 g/dL (no code) 32 - 36 g/dL 03-19-2019 Hospital [Mass/Vol] 10: [facility] (55220) MCV (RBC) 98.8 fL (H) 80 - 100 fL 03-19-2019 Hospital [Entitic vol] 10: [facility] (27104) Monocytes (Bld) 1.5 10*3/uL (H) 0.3 - 0.9 03-19-2019 Hosp ital [#/Vol] 10*3/uL 10: [facility] (84305) Monocytes/100 8.0 % (no code) 2 - 8 % 03-19-2019 Hospital WBC (Bld) 10: [facility] (54467) Neutrophils 15.58 10*3/uL (H) 1.7 - 7 10*3/uL 03-19-2019 Hospital (Bld) [#/Vol] 10: [facility] (88571) Neutrophils/100 81.2 % (H) 40 - 60 % 03-19-2019 Hospit al WBC (Bld) 10: [facility] (18161) Nitrite Ql (U) Negative (no code) 03-19-2019 Hospital 11: [facility] (16274) Osmolality Calc 280 (no code) 03-19-2019 Hospital [Osmolality] 10: [facility] (54801) pH (U) 6.0 [pH] (no code) 4.6 - 8 [pH] 03-19-2019 Hospital 11: [facility] (75024) Platelet mean 10.6 fL (H) 7.2 - 11.7 fL 03-19-2019 Hosp ital volume (Bld) 10: [facility] [Entitic vol] [facility] (56072) Platelets (Bld) 399 10*3/uL (no code) 150 - 450 03-19-2019 Hosp ital [#/Vol] 10*3/uL 10: [facility] (01513) Potassium 3.7 mmol/L (no code) 3.7 - 5.2 mmol/L 03-19-2019 Hosp ital [Moles/Vol] 10: [facility] (68116) Protein (U) Negative (no code) 0 - 20 mg/dL 03-19-2019 Hospita l [Mass/Vol] 11: [facility] (33714) Protein 6.6 g/dL (no code) 6.4 - 8.3 g/dL 03-19-2019 Hospita l [Mass/Vol] 10: [facility] (76847) RBC (Bld) 3.32 10*6/uL (L) 4.2 - 6.1 03-19-2019 Hospital [#/Vol] 10*6/uL 10: [facility] (80996) RBC LM.HPF 2-5/HPF (A) 03-19-2019 Hospital (Urine sed) 11: [facility] [#/Area] [facility] (10771) Sodium 135 mmol/L (no code) 135 - 145 mmol/L 03-19-2019 Hosp ital [Moles/Vol] 10: [facility] (65063) Specific gravity 1.020 (no code) 03-19-2019 Hospital (U) [Rel 11: [facility] density] [facility] (92974) Urea nitrogen 11 mg/dL (no code) 7 - 20 mg/dL 03-19-2019 Hospi lalo [Mass/Vol] 10: [facility] (26531) Urobilinogen Qn [id number] (A) 03-19-2019 Hospital (U) {Karla'U}/dL 11: [facility] (45787) WBC (Bld) 19.19 10*3/uL (H) 3.5 - 10.5 03-19-2019 Hospita l [#/Vol] 10*3/uL 10: [facility] (41804) WBC LM.HPF Negative (no code) 0 - 5 /[HPF] 03-19-2019 Hospital (Urine sed) 11: [facility] [#/Area] [facility] (79951) Yeast.budding Ql No Yeast present (no code) 03-19-2019 Hosp ital (Urine sed) 11: [facility] (79511) not yet categorized on 2019-03-18 no information Chart note added (no code) [facility] (64993) not yet categorized on 2019-03-14 no information Chart note added (no code) [facility] (35805) no information Chart note added (no code) [facility] (52498) not yet categorized on 2019-03-11 no information Chart note added (no code) [facility] (45667) no information Chart note added (no code) [facility] (10351) not yet categorized on 2019-03-10 no information Chart note added (no code) [facility] (71523) not yet categorized on 2019-03-09 no information Chart note added (no code) [facility] (88284) not yet categorized on 2019-03-07 no information Chart note added (no code) [facility] (07784) no information Chart note added (no code) [facility] (19039) not yet categorized on 2019-03-04 no information Chart note added (no code) [facility] (40232) not yet categorized on 2019-03-03 no information Chart note added (no code) [facility] (44961) not yet categorized on 2019-02-28 no information Chart note added (no code) [facility] (65550) not yet categorized on 2019-02-25 no information Chart note added (no code) [facility] (39596) not yet categorized on 2019-02-22 no information Chart note added (no code) [facility] (39824) not yet categorized on 2019-02-21 no information Chart note added (no code) [facility] (70393) not yet categorized on 2019-02-18 no information Chart note added (no code) [facility] (24600) not yet categorized on 2019-02-14 no information Chart note added (no code) [facility] (38286) no information Chart note added (no code) [facility] (76505) not yet categorized on 2019-02-11 no information Chart note added (no code) [facility] (97941) not yet categorized on 2019-02-10 Urine Volume Urine Volume (no code) 02-10-2019 Hospital Sufficient 04: [facility] (10mL[facility] (84787) no information Urine Saved if (A) 02-10-2019 Hospital Culture Needed 04: [facility] (48hrs from time [facility] of collection) (25411) laboratory on 2019-02-10 Albumin BCG dye 3.9 (no code) 02-10-2019 Hospital [Mass/Vol] 04: [facility] (67796) ALP [Catalytic 54 U/L (no code) 44 - 147 U/L 02-10-2019 Hosp ital activity/Vol] 04: [facility] (99524) ALT [Catalytic 14 U/L (no code) 4 - 40 U/L 02-10-2019 Hospit al activity/Vol] 04: [facility] (09941) Anion gap 19 mmol/L (H) 3 - 11 mmol/L 02-10-2019 Hospital [Moles/Vol] 04: [facility] (90387) AST [Catalytic 32 U/L (no code) 10 - 34 U/L 02-10-2019 Hospi lalo activity/Vol] 04: [facility] (52404) Bacteria LM Ql Negative (no code) 02-10-2019 Hospital (Urine sed) 04: [facility] (25718) Basophils (Bld) 0.0 10*3/uL (no code) 0 - 0.3 10*3/uL 02-10-2019 Hospital [#/Vol] 04: [facility] (16512) Basophils/100 0.30 % (no code) 0.5 - 1 % 02-10-2019 Hospital WBC (Bld) 04: [facility] (52045) Bilirubin 0.4 mg/dL (no code) 0.1 - 1.2 mg/dL 02-10-2019 Hospit al [Mass/Vol] 04: [facility] () Bilirubin N/A (A) 02-10-2019 Hospital Confirm Ql (U) 04: [facility] (40124) Bilirubin Ql (U) Negative (no code) 02-10-2019 Hospital 04: [facility] (90456) Calcium 9.8 mg/dL (no code) 8.5 - 10.2 mg/dL 02-10-2019 Hospi lalo [Mass/Vol] 04: [facility] (71628) Chloride 99 mmol/L (no code) 95 - 106 mmol/L 02-10-2019 Hospit al [Moles/Vol] 04: [facility] (38074) Clarity (U) Clear (no code) 02-10-2019 Hospital 04: [facility] (64881) Color (U) Yellow (no code) 02-10-2019 Hospital 04: [facility] (00902) Creatinine 0.84 mg/dL (no code) 02-10-2019 Hospital [Mass/Vol] 04: [facility] (02906) Eosinophils 0.4 10*3/uL (no code) 0.05 - 0.5 02-10-2019 Hospita l (Bld) [#/Vol] 10*3/uL 04: [facility] (73952) Eosinophils/100 2.3 % (no code) 1 - 4 % 02-10-2019 Hospit al WBC (Bld) 04: [facility] (67283) Epithelial 0-5/HPF (A) 02-10-2019 Hospital cells.squamous 04: [facility] LM.HPF (Urine [facility] sed) [#/Area] (53106) Erythrocyte 11.9 % (no code) 11.6 - 14.6 % 02-10-2019 Hospit al distribution 04: [facility] width (RBC) [facility] [Ratio] (69587) GFR/1.73 sq 65 (no code) 90 - 120 02-10-2019 Hospital M.predicted MDRD mL/min/{1.73_m2} mL/min/{1.73_m2} 04: [facility] (S/P/Bld) [Vol [facility] rate/Area] (71962) Globulin (S) 2.4 g/dL (no code) 2 - 3.5 g/dL 02-10-2019 Hospit al [Mass/Vol] 04: [facility] (30459) Glucose 89 mg/dL (no code) 60 - 125 mg/dL 02-10-2019 Hospita l [Mass/Vol] 04: [facility] (73894) Glucose Test Negative (no code) 02-10-2019 Hospital strip (U) 04: [facility] [Mass/Vol] [facility] (68597) HCO3 (P) 20 (L) 02-10-2019 Hospital [Moles/Vol] 04: [facility] (67673) Hematocrit (Bld) 34.0 % (L) 36.1 - 50.3 % 02-10-2019 H ospital [Volume 04: [facility] fraction] [facility] (46574) Hemoglobin (Bld) 11.5 g/dL (L) 12.1 - 17.2 g/dL 02-10-2019 Hospital [Mass/Vol] 04: [facility] (45752) Hemoglobin Ql Negative (no code) 02-10-2019 Hospital (U) 04:07-0500 [facility] (43673) Ketones (U) Negative (no code) 02-10-2019 Hospital [Mass/Vol] 04: [facility] (33855) Leukocyte Negative (no code) 02-10-2019 Hospital esterase Test 04: [facility] strip Ql (U) [facility] (62718) Lymphocytes 2.55 10*3/uL (no code) 0.9 - 2.9 02-10-2019 Hospita l (Bld) [#/Vol] 10*3/uL 04: [facility] (65521) Lymphocytes/100 16.1 % (no code) 20 - 40 % 02-10-2019 Hospit al WBC (Bld) 04: [facility] (58140) MCH (RBC) 34.5 pg (H) 27 - 31 pg 02-10-2019 Hospital [Entitic mass] 04: [facility] (33473) MCHC (RBC) 33.8 g/dL (no code) 32 - 36 g/dL 02-10-2019 Hospital [Mass/Vol] 04: [facility] (51173) MCV (RBC) 102.1 fL (H) 80 - 100 fL 02-10-2019 Hospital [Entitic vol] 04: [facility] (94996) Monocytes (Bld) 1.0 10*3/uL (H) 0.3 - 0.9 02-10-2019 Hosp ital [#/Vol] 10*3/uL 04: [facility] (50020) Monocytes/100 6.0 % (no code) 2 - 8 % 02-10-2019 Hospital WBC (Bld) 04: [facility] (58588) Neutrophils 11.96 10*3/uL (H) 1.7 - 7 10*3/uL 02-10-2019 Hospital (Bld) [#/Vol] 04: [facility] (80475) Neutrophils/100 75.3 % (no code) 40 - 60 % 02-10-2019 Hospit al WBC (Bld) 04: [facility] (62380) Nitrite Ql (U) Negative (no code) 02-10-2019 Hospital 04: [facility] (21278) Osmolality Calc 275 (L) 02-10-2019 Hospital [Osmolality] 04: [facility] (34626) pH (U) 7.0 [pH] (no code) 4.6 - 8 [pH] 02-10-2019 Hospital 04: [facility] (58614) Platelet mean 11.3 fL (H) 7.2 - 11.7 fL 02-10-2019 Hosp ital volume (Bld) 04: [facility] [Entitic vol] [facility] (56007) Platelets (Bld) 358 10*3/uL (no code) 150 - 450 02-10-2019 Hosp ital [#/Vol] 10*3/uL 04: [facility] (15452) Potassium 4.8 mmol/L (no code) 3.7 - 5.2 mmol/L 02-10-2019 Hosp ital [Moles/Vol] 04: [facility] (32430) Protein (U) Negative (no code) 0 - 20 mg/dL 02-10-2019 Hospita l [Mass/Vol] 04: [facility] (00945) Protein 6.3 g/dL (no code) 6.4 - 8.3 g/dL 02-10-2019 Hospita l [Mass/Vol] 04: [facility] (15964) RBC (Bld) 3.33 10*6/uL (L) 4.2 - 6.1 02-10-2019 Hospital [#/Vol] 10*6/uL 04: [facility] (66017) RBC LM.HPF Negative (no code) 0 - 4 /[HPF] 02-10-2019 Hospital (Urine sed) 04: [facility] [#/Area] [facility] (75591) Sodium 133 mmol/L (L) 135 - 145 mmol/L 02-10-2019 Hosp ital [Moles/Vol] 04: [facility] (08632) Specific gravity 1.015 (no code) 02-10-2019 Hospital (U) [Rel 04: [facility] density] [facility] (70551) Urea nitrogen 15 mg/dL (no code) 7 - 20 mg/dL 02-10-2019 Hospi lalo [Mass/Vol] 04: [facility] (90740) Urobilinogen Qn [id number] (A) 02-10-2019 Hospital (U) {Karla'U}/dL 04: [facility] (30936) WBC (Bld) 15.88 10*3/uL (H) 3.5 - 10.5 02-10-2019 Hospita l [#/Vol] 10*3/uL 04: [facility] (53895) WBC LM.HPF Negative (no code) 0 - 5 /[HPF] 02-10-2019 Hospital (Urine sed) 04: [facility] [#/Area] [facility] (62372) not yet categorized on 2019-02-09 no information Chart note added (no code) [facility] (32969) not yet categorized on 2019-02-07 no information Chart note added (no code) [facility] (26196) not yet categorized on 2019-02-04 no information Chart note added (no code) [facility] (28337) no information Chart note added (no code) [facility] (44113) not yet categorized on 2019-02-03 no information Chart note added (no code) [facility] (37714) not yet categorized on 2019-02-02 no information Chart note added (no code) [facility] (19413) not yet categorized on 2019-02-01 no information Chart note added (no code) [facility] (12544) no information Chart note added (no code) [facility] (53787) not yet categorized on 2019-01-31 no information Chart note added (no code) [facility] (93113) not yet categorized on 2019-01-28 no information Chart note added (no code) [facility] (55974) not yet categorized on 2019-01-25 no information Chart note added (no code) [facility] ([id number]) not yet categorized on 2019-01-24 no information Chart note added (no code) [facility] (28933) not yet categorized on 2019-01-21 no information Chart note added (no code) [facility] ([id number]) not yet categorized on 2019-01-19 no information Chart note added (no code) [facility] ([id number]) not yet categorized on 2019-01-18 no information Chart note added (no code) [facility] (84302) not yet categorized on 2019-01-17 Oxygen 99 % (no code) 94 - 100 % 01-17-2019 [facility] saturation in 12:11-0400 (23622) Blood no information Chart note added (no code) [facility] (07086) no information Chart note added (no code) [facility] (70353) no information Chart note added (no code) [facility] ([id number]) not yet categorized on 2019-01-15 Oxygen 98 % (no code) 94 - 100 % 01-15-2019 [facility] saturation in 09:54-0400 (89715) Blood Oxygen 99 % (no code) 94 - 100 % 01-15-2019 [facility] saturation in 14:23-0400 (76198) Blood not yet categorized on 2019-01-14 Oxygen 98 % (no code) 94 - 100 % 01-14-2019 [facility] saturation in 10:22-0400 (35344) Blood no information Chart note added (no code) [facility] ([id number]) not yet categorized on 2019-01-13 Oxygen 98 % (no code) 94 - 100 % 01-13-2019 [facility] saturation in 11:12-0400 (83683) Blood no information Chart note added (no code) [facility] ([id number]) not yet categorized on 2019-01-12 Oxygen 97 % (no code) 94 - 100 % 01-12-2019 [facility] saturation in 10:04-0400 (38260) Blood no information Chart note added (no code) [facility] (53832) not yet categorized on 2019-01-11 Oxygen 99 % (no code) 94 - 100 % 01-11-2019 [facility] saturation in 11:27-0400 (88441) Blood not yet categorized on 2019-01-10 Oxygen 95 % (no code) 94 - 100 % 01-10-2019 [facility] saturation in 11:00-0400 (62107) Blood no information Chart note added (no code) [facility] ([id number]) not yet categorized on 2019-01-07 Oxygen 98 % (no code) 94 - 100 % 01-07-2019 [facility] saturation in 10:40-0400 (76001) Blood no information Chart note added (no code) [facility] ([id number]) not yet categorized on 2019-01-06 Oxygen 98 % (no code) 94 - 100 % 01-06-2019 [facility] saturation in 12:59-0400 (11050) Blood not yet categorized on 2019-01-05 Oxygen 98 % (no code) 94 - 100 % 01-05-2019 [facility] saturation in 10:09-0400 (33151) Blood not yet categorized on 2019-01-04 Oxygen 90 % (no code) 94 - 100 % 01-04-2019 [facility] saturation in 12:19-0400 (74680) Blood no information Chart note added (no code) [facility] ([id number]) not yet categorized on 2019-01-03 Oxygen 98 % (no code) 94 - 100 % 01-03-2019 [facility] saturation in 10:48-0400 (05081) Blood no information Chart note added (no code) [facility] ([id number]) no information Chart note added (no code) [facility] ([id number]) not yet categorized on 2019-01-01 Oxygen 96 % (no code) 94 - 100 % 01-01-2019 [facility] saturation in 14:35-0400 (56161) Blood not yet categorized on 2018-12-31 Oxygen 95 % (no code) 94 - 100 % 12-31-2018 [facility] saturation in 11:22-0400 (85312) Blood not yet categorized on 2018-12-30 Oxygen 98 % (no code) 94 - 100 % 12-30-2018 [facility] saturation in 10:31-0400 (92561) Blood no information Chart note added (no code) [facility] (41753) not yet categorized on 2018-12-29 Oxygen 96 % (no code) 94 - 100 % 12-29-2018 [facility] saturation in 10:0400 (59133) Blood no information Chart note added (no code) [facility] ([id number]) not yet categorized on 2018-12-28 Oxygen 98 % (no code) 94 - 100 % 12-28-2018 [facility] saturation in 16:01-0400 (60851) Blood no information Chart note added (no code) [facility] (22591) no information Chart note added (no code) [facility] (26951) not yet categorized on 2018-12-27 Oxygen 97 % (no code) 94 - 100 % 12-27-2018 [facility] saturation in 13:18-0400 (97354) Blood no information Chart note added (no code) [facility] (56367) no information Chart note added (no code) [facility] (05860) no information Chart note (no code) [facility] updated ([id number]) not yet categorized on 2018-12-26 no information Chart note added (no code) [facility] ([id number]) not yet categorized on 2018-12-25 Oxygen 99 % (no code) 94 - 100 % 12-25-2018 [facility] saturation in 13:10-0400 (48452) Blood not yet categorized on 2018-12-24 Oxygen 95 % (no code) 94 - 100 % 12-24-2018 [facility] saturation in 11:31-0400 (68146) Blood no information Chart note added (no code) [facility] ([id number]) not yet categorized on 2018-12-23 Oxygen 100 % (no code) 94 - 100 % 12-23-2018 [facility] saturation in 11:02-0400 (53143) Blood no information Chart note added (no code) [facility] ([id number]) not yet categorized on 2018-12-22 Oxygen 98 % (no code) 94 - 100 % 12-22-2018 [facility] saturation in 10:54-0400 (84265) Blood no information Chart note added (no code) [facility] ([id number]) not yet categorized on 2018-12-21 Oxygen 93 % (no code) 94 - 100 % 12-21-2018 [facility] saturation in 14:16-0400 (76221) Blood no information Chart note added (no code) [facility] ([id number]) not yet categorized on 2018-12-20 Oxygen 98 % (no code) 94 - 100 % 12-20-2018 [facility] saturation in 14:36-0400 ([id number]) Blood no information Chart note added (no code) [facility] ([id number]) not yet categorized on 2018-12-19 Oxygen 98 % (no code) 94 - 100 % 12-19-2018 [facility] saturation in 09:43-0400 (31060) Blood not yet categorized on 2018-12-18 Oxygen 98 % (no code) 94 - 100 % 12-18-2018 [facility] saturation in 11:54-0400 (91949) Blood not yet categorized on 2018-12-17 Oxygen 93 % (no code) 94 - 100 % 12-17-2018 [facility] saturation in 12:09-0400 ([id number]) Blood Oxygen 96 % (no code) 94 - 100 % 12-17-2018 [facility] saturation in 17:07-0400 (45962) Blood no information Chart note added (no code) [facility] ([id number]) not yet categorized on 2018-12-15 Oxygen 98 % (no code) 94 - 100 % 12-15-2018 [facility] saturation in 10:20-0400 (85196) Blood no information Chart note added (no code) [facility] ([id number]) not yet categorized on 2018-12-14 Oxygen 97 % (no code) 94 - 100 % 12-14-2018 [facility] saturation in 12:18-0400 (90506) Blood no information Chart note added (no code) [facility] ([id number]) no information Chart note added (no code) [facility] (54511) no information Chart note added (no code) [facility] ([id number]) not yet categorized on 2018-12-13 Oxygen 98 % (no code) 94 - 100 % 12-13-2018 [facility] saturation in 10:29-0400 (22696) Blood no information Chart note added (no code) [facility] (38015) not yet categorized on 2018-12-12 Oxygen 98 % (no code) 94 - 100 % 12-12-2018 [facility] saturation in 10:15-0400 (38390) Blood not yet categorized on 2018-12-11 Oxygen 98 % (no code) 94 - 100 % 12-11-2018 [facility] saturation in 09:48-0400 ([id number]) Blood not yet categorized on 2018-12-10 Oxygen 94 % (no code) 94 - 100 % 12-10-2018 [facility] saturation in 12:08-0400 ([id number]) Blood no information Chart note added (no code) [facility] ([id number]) not yet categorized on 2018-12-09 Oxygen 98 % (no code) 94 - 100 % 12-09-2018 [facility] saturation in 11:29-0400 ([id number]) Blood no information Chart note added (no code) [facility] ([id number]) not yet categorized on 2018-12-08 Oxygen 94 % (no code) 94 - 100 % 12-08-2018 [facility] saturation in 10:42-0400 (35052) Blood no information Chart note added (no code) [facility] ([id number]) not yet categorized on 2018-12-07 Oxygen 97 % (no code) 94 - 100 % 12-07-2018 [facility] saturation in 12:53-0400 (31041) Blood no information Chart note added (no code) [facility] ([id number]) not yet categorized on 2018-12-06 Oxygen 88 % (LL) 94 - 100 % 12-06-2018 [facility] saturation in 11:08-0400 ([id number]) Blood no information Chart note added (no code) [facility] ([id number]) no information Chart note added (no code) [facility] ([id number]) not yet categorized on 2018-12-03 Oxygen 98 % (no code) 94 - 100 % 12-03-2018 [facility] saturation in 12:36-0400 ([id number]) Blood no information Chart note added (no code) [facility] ([id number]) not yet categorized on 2018-12-02 Oxygen 93 % (no code) 94 - 100 % 12-02-2018 [facility] saturation in 11:03-0400 (21050) Blood no information Chart note added (no code) [facility] ([id number]) not yet categorized on 2018-12-01 Oxygen 93 % (no code) 94 - 100 % 12-01-2018 [facility] saturation in 11:37-0400 ([id number]) Blood no information Chart note added (no code) [facility] ([id number]) not yet categorized on 2018-11-30 no information Chart note added (no code) [facility] ([id number]) not yet categorized on 2018-11-29 Oxygen 97 % (no code) 94 - 100 % 11-29-2018 [facility] saturation in 11:25-0400 ([id number]) Blood no information Chart note added (no code) [facility] ([id number]) not yet categorized on 2018-11-28 Oxygen 96 % (no code) 94 - 100 % 11-28-2018 [facility] saturation in 09:37-0400 ([id number]) Blood not yet categorized on 2018-11-27 Oxygen 96 % (no code) 94 - 100 % 11-27-2018 [facility] saturation in 09:53-0400 ([id number]) Blood not yet categorized on 2018-11-26 Oxygen 98 % (no code) 94 - 100 % 11-26-2018 [facility] saturation in 10:10-0400 ([id number]) Blood no information Chart note added (no code) [facility] ([id number]) not yet categorized on 2018-11-25 Oxygen 97 % (no code) 94 - 100 % 11-25-2018 [facility] saturation in 10:30-0400 ([id number]) Blood no information Chart note added (no code) [facility] ([id number]) not yet categorized on 2018-11-24 Oxygen 96 % (no code) 94 - 100 % 11-24-2018 [facility] saturation in 10:01-0400 ([id number]) Blood Oxygen 94 % (no code) 94 - 100 % 11-24-2018 [facility] saturation in 14:11-0400 ([id number]) Blood no information Chart note added (no code) [facility] ([id number]) not yet categorized on 2018-11-23 Oxygen 99 % (no code) 94 - 100 % 11-23-2018 [facility] saturation in 14:30-0400 ([id number]) Blood no information Chart note added (no code) [facility] ([id number]) no information Chart note added (no code) [facility] ([id number]) not yet categorized on 2018-11-19 Oxygen 96 % (no code) 94 - 100 % 11-19-2018 [facility] saturation in 11:16-0400 ([id number]) Blood no information Chart note added (no code) [facility] ([id number]) no information Chart note added (no code) [facility] ([id number]) not yet categorized on 2018-11-18 Oxygen 95 % (no code) 94 - 100 % 11-18-2018 [facility] saturation in 10:01-0400 ([id number]) Blood no information Chart note added (no code) [facility] ([id number]) not yet categorized on 2018-11-17 Oxygen 98 % (no code) 94 - 100 % 11-17-2018 [facility] saturation in 10:05-0400 ([id number]) Blood no information Chart note added (no code) [facility] ([id number]) not yet categorized on 2018-11-16 Oxygen 98 % (no code) 94 - 100 % 11-16-2018 [facility] saturation in 14:02-0400 ([id number]) Blood no information Chart note added (no code) [facility] ([id number]) no information Chart note added (no code) [facility] ([id number]) not yet categorized on 2018-11-15 Oxygen 96 % (no code) 94 - 100 % 11-15-2018 [facility] saturation in 10:07-0400 ([id number]) Blood no information Chart note added (no code) [facility] ([id number]) not yet categorized on 2018-11-13 CULTURE SOURCE Urine (no code) 11-13-2018 [facility] 18:48-[facility] ([id number]) FINAL CULTURE No Growth 48 (no code) 11-13-2018 Hospital RESULTS hours 18:48-0400 [facility] ([id number]) Oxygen 98 % (no code) 94 - 100 % 11-13-2018 [facility] saturation in 10: ([id number]) Blood PRELIM CULTURE No Growth 24 (no code) 11-13-2018 Hospital RESULTS hours 18:48-0400 [facility] ([id number]) Urine Volume Urine Volume (no code) 11-13-2018 Hospital Sufficient 18:48-0400 [facility] (10mL) [facility] ([id number]) no information Urine Saved if (A) 11-13-2018 Hospital Culture Needed 18:480400 [facility] (48hrs from time [facility] of collection) ([id number]) no information Culture to (A) 11-13-2018 Hospital follow 18:480400 [facility] ([id number]) laboratory on 2018-11-13 Bacteria LM Ql Trace (A) 11-13-2018 Hospital (Urine sed) 18:48-0400 [facility] ([id number]) Bilirubin N/A (A) 11-13-2018 Hospital Confirm Ql (U) 18:48-0400 [facility] ([id number]) Bilirubin Ql (U) Negative (no code) 11-13-2018 Hospital 18:48-0400 [facility] ([id number]) Casts LM Ql Hyaline: (no code) 11-13-2018 Hospital (Urine sed) 10-15/LPF 18:48-0400 [facility] ([id number]) Clarity (U) Slightly Cloudy (A) 11-13-2018 Hospital 18:48-0400 [facility] ([id number]) Color (U) Yellow (no code) 11-13-2018 Hospital 18:48-0400 [facility] ([id number]) Epithelial 0-5/HPF (A) 11-13-2018 Hospital cells.squamous 18:48-0400 [facility] LM.HPF (Urine [facility] sed) [#/Area] ([id number]) Glucose Test Negative (no code) 11-13-2018 Hospital strip (U) 18:48-0400 [facility] [Mass/Vol] [facility] ([id number]) Hemoglobin Ql Negative (no code) 11-13-2018 Hospital (U) 18:48-0400 [facility] (51172) Ketones (U) Negative (no code) 11-13-2018 Hospital [Mass/Vol] 18:48-0400 [facility] ([id number]) Leukocyte Trace (A) 11-13-2018 Hospital esterase Test 18:48-0400 [facility] strip Ql (U) [facility] ([id number]) Mucus Ql (Urine 1+ (A) 11-13-2018 Hospital sed) 18:48-0400 [facility] ([id number]) Nitrite Ql (U) Negative (no code) 11-13-2018 Hospital 18:48-0400 [facility] ([id number]) pH (U) 6.5 [pH] (no code) 4.6 - 8 [pH] 11-13-2018 Hospital 18:48-0400 [facility] ([id number]) Protein (U) Negative (no code) 0 - 20 mg/dL 11-13-2018 Hospita l [Mass/Vol] 18:48-0400 [facility] (34449) RBC LM.HPF 0-2/HPF (A) 11-13-2018 Hospital (Urine sed) 18:48-0400 [facility] [#/Area] [facility] (38371) Specific gravity 1.010 (no code) 11-13-2018 Hospital (U) [Rel 18:480400 [facility] density] [facility] (49444) Urobilinogen Qn 0.2 (no code) 11-13-2018 Hospital (U) 18:48-0400 [facility] ([id number]) WBC LM.HPF 2-5/HPF (A) 11-13-2018 Hospital (Urine sed) 18:48-0400 [facility] [#/Area] [facility] (30814) Yeast.budding Ql No Yeast present (no code) 11-13-2018 Hosp ital (Urine sed) 18:480 [facility] ([id number]) not yet categorized on 2018-11-12 Oxygen 98 % (no code) 94 - 100 % 11-12-2018 [facility] saturation in 09: ([id number]) Blood no information Chart note added (no code) [facility] ([id number]) laboratory on 2018-11-12 Albumin BCG dye 4.1 (no code) 11-12-2018 Hospital [Mass/Vol] 17: [facility] ([id number]) ALP [Catalytic 45 U/L (no code) 44 - 147 U/L 11-12-2018 Hosp ital activity/Vol] 17: [facility] () ALT [Catalytic 11 U/L (no code) 4 - 40 U/L 11-12-2018 Hospit al activity/Vol] 17: [facility] ([id number]) Anion gap 18 mmol/L (H) 3 - 11 mmol/L 11-12-2018 Hospital [Moles/Vol] 17: [facility] ([id number]) AST [Catalytic 25 U/L (no code) 10 - 34 U/L 11-12-2018 Hospi lalo activity/Vol] 17:00040 [facility] ([id number]) Basophils (Bld) 0.0 10*3/uL (no code) 0 - 0.3 10*3/uL 11-12-2018 Hospital [#/Vol] 17:040 [facility] ([id number]) Basophils/100 0.30 % (no code) 0.5 - 1 % 11-12-2018 Hospital WBC (Bld) : [facility] (46745) Bilirubin 0.4 mg/dL (no code) 0.1 - 1.2 mg/dL 11-12-2018 Hospit al [Mass/Vol] 17: [facility] ([id number]) Calcium 9.8 mg/dL (no code) 8.5 - 10.2 mg/dL 11-12-2018 Hospi lalo [Mass/Vol] 17: [facility] (08537) Chloride 95 mmol/L (no code) 95 - 106 mmol/L 11-12-2018 Hospit al [Moles/Vol] 17: [facility] (90794) Creatinine 0.85 mg/dL (no code) 11-12-2018 Hospital [Mass/Vol] 17: [facility] (30519) CRP [Mass/Vol] 0.06 (no code) 11-12-2018 Hospital 17: [facility] (15310) Eosinophils 0.2 10*3/uL (no code) 0.05 - 0.5 11-12-2018 Hospita l (Bld) [#/Vol] 10*3/uL 17: [facility] (99005) Eosinophils/100 1.6 % (no code) 1 - 4 % 11-12-2018 Hospit al WBC (Bld) : [facility] (88131) Erythrocyte 12.2 % (no code) 11.6 - 14.6 % 11-12-2018 Hospit al distribution : [facility] width (RBC) [facility] [Ratio] ([id number]) Free T4 1.03 ng/dL (no code) 0.9 - 2.2 ng/dL 11-12-2018 Hospi lalo [Mass/Vol] 17: [facility] (98331) GFR/1.73 sq 64 (no code) 90 - 120 11-12-2018 Hospital M.predicted MDRD mL/min/{1.73_m2} mL/min/{1.73_m2} 17: [facility] (S/P/Bld) [Vol [facility] rate/Area] ([id number]) Globulin (S) 2.4 g/dL (no code) 2 - 3.5 g/dL 11-12-2018 Hospit al [Mass/Vol] 17: [facility] (38951) Glucose 98 mg/dL (no code) 60 - 125 mg/dL 11-12-2018 [facility]ospita l [Mass/Vol] 17:040 [facility] (86356) HCO3 (P) 21 (L) 11-12-2018 Hospital [Moles/Vol] 17: [facility] (62044) Hematocrit (Bld) 34.0 % (L) 36.1 - 50.3 % 11-12-2018 H ospital [Volume : [facility] fraction] [facility] (27505) Hemoglobin (Bld) 11.4 g/dL (L) 12.1 - 17.2 g/dL 11-12-2018 Hospital [Mass/Vol] : [facility] (70612) Lymphocytes 2.04 10*3/uL (no code) 0.9 - 2.9 11-12-2018 Hospita l (Bld) [#/Vol] 10*3/uL : [facility] (60129) Lymphocytes/100 16.3 % (no code) 20 - 40 % 11-12-2018 Hospit al WBC (Bld) 17: [facility] (60270) MCH (RBC) 33.6 pg (H) 27 - 31 pg 11-12-2018 Hospital [Entitic mass] : [facility] (50573) MCHC (RBC) 33.5 g/dL (no code) 32 - 36 g/dL 11-12-2018 Hospital [Mass/Vol] 17:040 [facility] (54877) MCV (RBC) 100.3 fL (H) 80 - 100 fL 11-12-2018 Hospital [Entitic vol] 17: [facility] (01118) Monocytes (Bld) 0.8 10*3/uL (no code) 0.3 - 0.9 11-12-2018 Hosp ital [#/Vol] 10*3/uL 17: [facility] (84020) Monocytes/100 6.6 % (no code) 2 - 8 % 11-12-2018 Hospital WBC (Bld) : [facility] (18038) Neutrophils 9.40 10*3/uL (H) 1.7 - 7 10*3/uL 11-12-2018 H ospital (Bld) [#/Vol] : [facility] (99957) Neutrophils/100 75.2 % (no code) 40 - 60 % 11-12-2018 Hospit al WBC (Bld) : [facility] (54520) Osmolality Calc 268 (L) 11-12-2018 Hospital [Osmolality] : [facility] (59868) Platelet mean 11.7 fL (H) 7.2 - 11.7 fL 11-12-2018 Hosp ital volume (Bld) : [facility] [Entitic vol] [facility] (21532) Platelets (Bld) 344 10*3/uL (no code) 150 - 450 11-12-2018 Hosp ital [#/Vol] 10*3/uL 17: [facility] (50680) Potassium 5.2 mmol/L (no code) 3.7 - 5.2 mmol/L 11-12-2018 Hosp ital [Moles/Vol] : [facility] (26745) Protein 6.5 g/dL (no code) 6.4 - 8.3 g/dL 11-12-2018 [facility]ospita l [Mass/Vol] : [facility] (66715) RBC (Bld) 3.39 10*6/uL (L) 4.2 - 6.1 11-12-2018 Hospital [#/Vol] 10*6/uL : [facility] (45992) Sodium 129 mmol/L (L) 135 - 145 mmol/L 11-12-2018 Hosp ital [Moles/Vol] : [facility] (06503) T3 [Mass/Vol] 0.83 (no code) 11-12-2018 Hospital : [facility] (46330) TSH Qn 3.12 (no code) 11-12-2018 Hospital 17:00-0400 [facility] (41882) Urea nitrogen 16 mg/dL (no code) 7 - 20 mg/dL 11-12-2018 Hospi lalo [Mass/Vol] 17:000400 [facility] ([id number]) WBC (Bld) 12.50 10*3/uL (H) 3.5 - 10.5 11-12-2018 Hospita l [#/Vol] 10*3/uL 17:000400 [facility] ([id number]) not yet categorized on 2018-11-11 Oxygen 98 % (no code) 94 - 100 % 11-11-2018 [facility] saturation in 10:12-0400 ([id number]) Blood no information Chart note added (no code) [facility] ([id number]) not yet categorized on 2018-11-10 Oxygen 96 % (no code) 94 - 100 % 11-10-2018 [facility] saturation in 09:17-0400 (15024) Blood Oxygen 97 % (no code) 94 - 100 % 11-10-2018 [facility] saturation in 14:03-0400 ([id number]) Blood no information Chart note added (no code) [facility] ([id number]) not yet categorized on 2018-11-09 no information Chart note added (no code) [facility] ([id number]) not yet categorized on 2018-11-08 Oxygen 98 % (no code) 94 - 100 % 11-08-2018 [facility] saturation in 11:36-0400 ([id number]) Blood no information Chart note added (no code) [facility] ([id number]) no information Chart note added (no code) [facility] ([id number]) not yet categorized on 2018-11-06 Oxygen 98 % (no code) 94 - 100 % 11-06-2018 [facility] saturation in 11:29-0400 ([id number]) Blood not yet categorized on 2018-11-05 Oxygen 99 % (no code) 94 - 100 % 11-05-2018 [facility] saturation in 17:20-0400 ([id number]) Blood no information Chart note added (no code) [facility] ([id number]) not yet categorized on 2018-11-04 Oxygen 98 % (no code) 94 - 100 % 11-04-2018 [facility] saturation in 10:12-0400 ([id number]) Blood no information Chart note added (no code) [facility] ([id number]) no information Chart note added (no code) [facility] ([id number]) not yet categorized on 2018-11-03 Oxygen 98 % (no code) 94 - 100 % 11-03-2018 [facility] saturation in 10:00-0400 ([id number]) Blood no information Chart note added (no code) [facility] ([id number]) not yet categorized on 2018-11-02 no information Chart note added (no code) [facility] ([id number]) not yet categorized on 2018-11-01 Oxygen 98 % (no code) 94 - 100 % 11-01-2018 [facility] saturation in 10:00-0400 ([id number]) Blood not yet categorized on 2018-10-31 Oxygen 95 % (no code) 94 - 100 % 10-31-2018 [facility] saturation in 10:00-0400 ([id number]) Blood not yet categorized on 2018-10-29 Oxygen 98 % (no code) 94 - 100 % 10-29-2018 [facility] saturation in 10:54-0400 ([id number]) Blood no information Chart note added (no code) [facility] ([id number]) no information Chart note added (no code) [facility] ([id number]) not yet categorized on 2018-10-28 no information Chart note added (no code) [facility] ([id number]) not yet categorized on 2018-10-27 Oxygen 98 % (no code) 94 - 100 % 10-27-2018 [facility] saturation in 18:49-0400 ([id number]) Blood not yet categorized on 2018-10-26 Oxygen 98 % (no code) 94 - 100 % 10-26-2018 [facility] saturation in 09:35-0400 ([id number]) Blood Oxygen 98 % (no code) 94 - 100 % 10-26-2018 [facility] saturation in 14:47-0400 ([id number]) Blood no information Chart note added (no code) [facility] ([id number]) no information Chart note added (no code) [facility] ([id number]) not yet categorized on 2018-10-25 Oxygen 90 % (no code) 94 - 100 % 10-25-2018 [facility] saturation in 11:06-0400 ([id number]) Blood no information Chart note added (no code) [facility] ([id number]) not yet categorized on 2018-10-24 Oxygen 99 % (no code) 94 - 100 % 10-24-2018 [facility] saturation in 09:27-0400 ([id number]) Blood not yet categorized on 2018-10-23 Oxygen 98 % (no code) 94 - 100 % 10-23-2018 [facility] saturation in 10:57-0400 ([id number]) Blood not yet categorized on 2018-10-22 Oxygen 98 % (no code) 94 - 100 % 10-22-2018 [facility] saturation in 11:22-0400 ([id number]) Blood no information Chart note added (no code) [facility] ([id number]) not yet categorized on 2018-10-21 Oxygen 98 % (no code) 94 - 100 % 10-21-2018 [facility] saturation in 10:49-0400 ([id number]) Blood no information Chart note added (no code) [facility] ([id number]) not yet categorized on 2018-10-20 Oxygen 99 % (no code) 94 - 100 % 10-20-2018 [facility] saturation in 10:12-0400 ([id number]) Blood no information Chart note added (no code) [facility] ([id number]) not yet categorized on 2018-10-19 Oxygen 98 % (no code) 94 - 100 % 10-19-2018 [facility] saturation in 09:57-0400 ([id number]) Blood Oxygen 98 % (no code) 94 - 100 % 10-19-2018 [facility] saturation in 14:22-0400 ([id number]) Blood no information Chart note added (no code) [facility] ([id number]) no information Chart note added (no code) [facility] ([id number]) not yet categorized on 2018-10-18 Oxygen 98 % (no code) 94 - 100 % 10-18-2018 [facility] saturation in 11:27-0400 ([id number]) Blood no information Chart note added (no code) [facility] ([id number]) no information Chart note added (no code) [facility] ([id number]) no information Chart note added (no code) [facility] ([id number]) not yet categorized on 2018-10-15 Oxygen 99 % (no code) 94 - 100 % 10-15-2018 [facility] saturation in 10:37-0400 ([id number]) Blood no information Chart note added (no code) [facility] ([id number]) not yet categorized on 2018-10-14 Oxygen 91 % (no code) 94 - 100 % 10-14-2018 [facility] saturation in 10:22-0400 ([id number]) Blood no information Chart note added (no code) [facility] ([id number]) not yet categorized on 2018-10-13 Oxygen 89 % (L) 94 - 100 % 10-13-2018 [facility] saturation in 10:25-0400 ([id number]) Blood no information Chart note added (no code) [facility] ([id number]) not yet categorized on 2018-10-12 Oxygen 98 % (no code) 94 - 100 % 10-12-2018 [facility] saturation in 15:04-0400 ([id number]) Blood no information Chart note added (no code) [facility] ([id number]) other on 2018-10-11 no information Chart note added (no code) [facility] ([id number]) no information Chart note added (no code) [facility] ([id number]) no information Chart note added (no code) [facility] ([id number]) blood gas on 2018-10-11 Oxygen 98 % (no code) 94 - 100 % 10-11-2018 [facility] saturation in 10:07-0400 ([id number]) Blood blood gas on 2018-10-10 Oxygen 99 % (no code) 94 - 100 % 10-10-2018 [facility] saturation in 10:08-0400 ([id number]) Blood blood gas on 2018-10-09 Oxygen 99 % (no code) 94 - 100 % 10-09-2018 [facility] saturation in 10:55-0400 ([id number]) Blood other on 2018-10-08 no information Chart note added (no code) [facility] ([id number]) blood gas on 2018-10-08 Oxygen 100 % (no code) 94 - 100 % 10-08-2018 [facility] saturation in 10:28-0400 ([id number]) Blood other on 2018-10-07 no information Chart note added (no code) [facility] ([id number]) no information Chart note added (no code) [facility] ([id number]) blood gas on 2018-10-07 Oxygen 99 % (no code) 94 - 100 % 10-07-2018 [facility] saturation in 09:48-0400 ([id number]) Blood Oxygen 99 % (no code) 94 - 100 % 10-07-2018 [facility] saturation in 11:09-0400 ([id number]) Blood other on 2018-10-05 no information Chart note added (no code) [facility] ([id number]) blood gas on 2018-10-05 Oxygen 98 % (no code) 94 - 100 % 10-05-2018 [facility] saturation in 10:21-0400 ([id number]) Blood other on 2018-10-04 no information Chart note added (no code) [facility] ([id number]) no information Chart note added (no code) [facility] ([id number]) blood gas on 2018-10-04 Oxygen 98 % (no code) 94 - 100 % 10-04-2018 [facility] saturation in 10:06-0400 ([id number]) Blood blood gas on 2018-10-03 Oxygen 98 % (no code) 94 - 100 % 10-03-2018 [facility] saturation in 09:58-0400 ([id number]) Blood other on 2018-10-01 no information Chart note added (no code) [facility] ([id number]) blood gas on 2018-10-01 Oxygen 99 % (no code) 94 - 100 % 10-01-2018 [facility] saturation in 10:12-0400 ([id number]) Blood other on 2018-09-30 no information Chart note added (no code) [facility] ([id number]) no information Chart note added (no code) [facility] ([id number]) blood gas on 2018-09-30 Oxygen 99 % (no code) 94 - 100 % 09-30-2018 [facility] saturation in 09:53-0400 ([id number]) Blood Oxygen 99 % (no code) 94 - 100 % 09-30-2018 [facility] saturation in 11:18-0400 ([id number]) Blood other on 2018-09-29 no information Chart note added (no code) [facility] ([id number]) no information Chart note added (no code) [facility] ([id number]) blood gas on 2018-09-29 Oxygen 98 % (no code) 94 - 100 % 09-29-2018 [facility] saturation in 11:04-0400 ([id number]) Blood blood gas on 2018-09-28 Oxygen 99 % (no code) 94 - 100 % 09-28-2018 [facility] saturation in 09:15-0400 ([id number]) Blood other on 2018-09-27 no information Chart note added (no code) [facility] ([id number]) blood gas on 2018-09-27 Oxygen 98 % (no code) 94 - 100 % 09-27-2018 [facility] saturation in 10:38-0400 ([id number]) Blood blood gas on 2018-09-26 Oxygen 99 % (no code) 94 - 100 % 09-26-2018 [facility] saturation in 09:05-0400 ([id number]) Blood blood gas on 2018-09-25 Oxygen 99 % (no code) 94 - 100 % 09-25-2018 [facility] saturation in 10:10-0400 ([id number]) Blood other on 2018-09-24 no information Chart note added (no code) [facility] ([id number]) blood gas on 2018-09-24 Oxygen 94 % (no code) 94 - 100 % 09-24-2018 [facility] saturation in 10:23-0400 ([id number]) Blood other on 2018-09-22 no information Chart note added (no code) [facility] ([id number]) blood gas on 2018-09-22 Oxygen 98 % (no code) 94 - 100 % 09-22-2018 [facility] saturation in 12:09-0400 ([id number]) Blood other on 2018-09-21 no information Chart note added (no code) [facility] ([id number]) blood gas on 2018-09-21 Oxygen 98 % (no code) 94 - 100 % 09-21-2018 [facility] saturation in 10:03-0400 ([id number]) Blood other on 2018-09-20 no information Chart note added (no code) [facility] ([id number]) no information Chart note added (no code) [facility] ([id number]) no information Chart note added (no code) [facility] ([id number]) blood gas on 2018-09-20 Oxygen 94 % (no code) 94 - 100 % 09-20-2018 [facility] saturation in 11:33-0400 ([id number]) Blood blood gas on 2018-09-18 Oxygen 95 % (no code) 94 - 100 % 09-18-2018 [facility] saturation in 09:57-0400 ([id number]) Blood Oxygen 95 % (no code) 94 - 100 % 09-18-2018 [facility] saturation in 11:17-0400 ([id number]) Blood other on 2018-09-17 no information Chart note added (no code) [facility] ([id number]) blood gas on 2018-09-17 Oxygen 96 % (no code) 94 - 100 % 09-17-2018 [facility] saturation in 10:51-0400 ([id number]) Blood other on 2018-09-16 no information Chart note added (no code) [facility] ([id number]) blood gas on 2018-09-16 Oxygen 98 % (no code) 94 - 100 % 09-16-2018 [facility] saturation in 10:06-0400 ([id number]) Blood other on 2018-09-15 no information Chart note added (no code) [facility] ([id number]) no information Chart note added (no code) [facility] ([id number]) blood gas on 2018-09-15 Oxygen 97 % (no code) 94 - 100 % 09-15-2018 [facility] saturation in 10:00-0400 ([id number]) Blood Oxygen 95 % (no code) 94 - 100 % 09-15-2018 [facility] saturation in 12:44-0400 ([id number]) Blood other on 2018-09-14 no information Chart note added (no code) [facility] ([id number]) no information Chart note added (no code) [facility] ([id number]) blood gas on 2018-09-14 Oxygen 98 % (no code) 94 - 100 % 09-14-2018 [facility] saturation in 10:31-0400 ([id number]) Blood other on 2018-09-13 no information Chart note added (no code) [facility] ([id number]) no information Chart note added (no code) [facility] ([id number]) blood gas on 2018-09-13 Oxygen 74 % (LL) 94 - 100 % 09-13-2018 [facility] saturation in 09:57-0400 ([id number]) Blood Oxygen 98 % (no code) 94 - 100 % 09-13-2018 [facility] saturation in 13:46-0400 ([id number]) Blood blood gas on 2018-09-12 Oxygen 93 % (no code) 94 - 100 % 09-12-2018 [facility] saturation in 09:20-0400 ([id number]) Blood blood gas on 2018-09-11 Oxygen 98 % (no code) 94 - 100 % 09-11-2018 [facility] saturation in 10:17-0400 ([id number]) Blood other on 2018-09-10 no information Chart note added (no code) [facility] ([id number]) no information Chart note added (no code) [facility] ([id number]) no information Chart note added (no code) [facility] ([id number]) blood gas on 2018-09-10 Oxygen 98 % (no code) 94 - 100 % 09-10-2018 [facility] saturation in 10:03-0400 ([id number]) Blood other on 2018-09-09 no information Chart note added (no code) [facility] ([id number]) blood gas on 2018-09-09 Oxygen 98 % (no code) 94 - 100 % 09-09-2018 [facility] saturation in 10:26-0400 ([id number]) Blood other on 2018-09-08 no information Chart note added (no code) [facility] ([id number]) blood gas on 2018-09-08 Oxygen 98 % (no code) 94 - 100 % 09-08-2018 [facility] saturation in 10:11-0400 ([id number]) Blood other on 2018-09-07 no information Chart note added (no code) [facility] ([id number]) blood gas on 2018-09-07 Oxygen 98 % (no code) 94 - 100 % 09-07-2018 [facility] saturation in 15:56-0400 ([id number]) Blood other on 2018 no information Chart note added (no code) [facility] ([id number]) no information Chart note added (no code) [facility] ([id number]) no information Chart note added (no code) [facility] ([id number]) blood gas on 2018 Oxygen 91 % (no code) 94 - 100 % 2018 [facility] saturation in 11:09-0400 ([id number]) Blood blood gas on 2018-09-04 Oxygen 98 % (no code) 94 - 100 % 09-04-2018 [facility] saturation in 10:25-0400 ([id number]) Blood other on 2018-09-03 no information Chart note added (no code) [facility] ([id number]) no information Chart note added (no code) [facility] ([id number]) blood gas on 2018-09-03 Oxygen 96 % (no code) 94 - 100 % 09-03-2018 [facility] saturation in 12:57-0400 ([id number]) Blood other on 2018-09-02 no information Chart note added (no code) [facility] ([id number]) blood gas on 2018-09-02 Oxygen 97 % (no code) 94 - 100 % 09-02-2018 [facility] saturation in 11:05-0400 ([id number]) Blood other on 2018-09-01 no information Chart note added (no code) [facility] ([id number]) no information Chart note added (no code) [facility] ([id number]) blood gas on 2018-09-01 Oxygen 99 % (no code) 94 - 100 % 09-01-2018 [facility] saturation in 15:01-0400 ([id number]) Blood other on 2018-08-31 no information Chart note added (no code) [facility] ([id number]) blood gas on 2018-08-31 Oxygen 96 % (no code) 94 - 100 % 08-31-2018 [facility] saturation in 10:41-0400 ([id number]) Blood other on 2018-08-30 no information Chart note added (no code) [facility] ([id number]) blood gas on 2018-08-30 Oxygen 98 % (no code) 94 - 100 % 08-30-2018 [facility] saturation in 10:27-0400 ([id number]) Blood blood gas on 2018-08-28 Oxygen 98 % (no code) 94 - 100 % 08-28-2018 [facility] saturation in 11:19-0400 ([id number]) Blood other on 2018-08-27 no information Chart note added (no code) [facility] ([id number]) no information Chart note added (no code) [facility] ([id number]) blood gas on 2018-08-27 Oxygen 98 % (no code) 94 - 100 % 08-27-2018 [facility] saturation in 11:28-0400 ([id number]) Blood other on 2018-08-26 no information Chart note added (no code) [facility] ([id number]) no information Chart note added (no code) [facility] ([id number]) blood gas on 2018-08-25 Oxygen 98 % (no code) 94 - 100 % 08-25-2018 [facility] saturation in 16:44-0400 ([id number]) Blood other on 2018-08-24 no information Chart note added (no code) [facility] ([id number]) blood gas on 2018-08-24 Oxygen 98 % (no code) 94 - 100 % 08-24-2018 [facility] saturation in 10:16-0400 ([id number]) Blood other on 2018-08-23 no information Chart note added (no code) [facility] ([id number]) no information Chart note added (no code) [facility] ([id number]) no information Chart note added (no code) [facility] ([id number]) blood gas on 2018-08-23 Oxygen 98 % (no code) 94 - 100 % 08-23-2018 [facility] saturation in 14:41-0400 ([id number]) Blood blood gas on 2018-08-22 Oxygen 98 % (no code) 94 - 100 % 08-22-2018 [facility] saturation in 09:57-0400 ([id number]) Blood blood gas on 2018-08-21 Oxygen 98 % (no code) 94 - 100 % 08-21-2018 [facility] saturation in 11:07-0400 ([id number]) Blood blood gas on 2018-08-15 Oxygen 98 % (no code) 94 - 100 % 08-15-2018 [facility] saturation in 10:19-0400 ([id number]) Blood other on 2018-08-13 no information Chart note added (no code) [facility] ([id number]) no information Chart note added (no code) [facility] ([id number]) blood gas on 2018-08-13 Oxygen 96 % (no code) 94 - 100 % 08-13-2018 [facility] saturation in 13:55-0400 ([id number]) Blood other on 2018-08-12 no information Chart note added (no code) [facility] ([id number]) blood gas on 2018-08-12 Oxygen 100 % (no code) 94 - 100 % 08-12-2018 [facility] saturation in 10:23-0400 ([id number]) Blood other on 2018-08-11 no information Chart note added (no code) [facility] ([id number]) blood gas on 2018-08-11 Oxygen 98 % (no code) 94 - 100 % 08-11-2018 [facility] saturation in 11:03-0400 ([id number]) Blood other on 2018-08-10 no information Chart note added (no code) [facility] ([id number]) no information Chart note added (no code) [facility] ([id number]) blood gas on 2018-08-10 Oxygen 96 % (no code) 94 - 100 % 08-10-2018 [facility] saturation in 10:17-0400 ([id number]) Blood other on 2018-08-09 no information Chart note added (no code) [facility] ([id number]) no information Chart note added (no code) [facility] ([id number]) blood gas on 2018-08-09 Oxygen 98 % (no code) 94 - 100 % 08-09-2018 [facility] saturation in 10:18-0400 ([id number]) Blood other on 2018-08-06 no information Chart note added (no code) [facility] ([id number]) blood gas on 2018-08-06 Oxygen 98 % (no code) 94 - 100 % 08-06-2018 [facility] saturation in 10:35-0400 ([id number]) Blood other on 2018-08-05 no information Chart note added (no code) [facility] ([id number]) blood gas on 2018-08-05 Oxygen 99 % (no code) 94 - 100 % 08-05-2018 [facility] saturation in 10:02-0400 ([id number]) Blood Oxygen 99 % (no code) 94 - 100 % 08-05-2018 [facility] saturation in 11:04-0400 ([id number]) Blood other on 2018-08-04 no information Chart note added (no code) [facility] ([id number]) blood gas on 2018-08-04 Oxygen 96 % (no code) 94 - 100 % 08-04-2018 [facility] saturation in 10:24-0400 ([id number]) Blood other on 2018-08-03 no information Chart note added (no code) [facility] ([id number]) no information Chart note added (no code) [facility] ([id number]) blood gas on 2018-08-03 Oxygen 99 % (no code) 94 - 100 % 08-03-2018 [facility] saturation in 13:34-0400 ([id number]) Blood other on 2018-08-02 no information Chart note added (no code) [facility] ([id number]) no information Chart note added (no code) [facility] ([id number]) blood gas on 2018-08-02 Oxygen 98 % (no code) 94 - 100 % 08-02-2018 [facility] saturation in 11:11-0400 ([id number]) Blood blood gas on 2018-08-01 Oxygen 98 % (no code) 94 - 100 % 08-01-2018 [facility] saturation in 09:32-0400 ([id number]) Blood blood gas on 2018-07-31 Oxygen 95 % (no code) 94 - 100 % 07-31-2018 [facility] saturation in 10:05-0400 ([id number]) Blood other on 2018-07-30 no information Chart note added (no code) [facility] ([id number]) other on 2018-07-29 no information Chart note added (no code) [facility] ([id number]) blood gas on 2018-07-29 Oxygen 98 % (no code) 94 - 100 % 07-29-2018 [facility] saturation in 14:10-0400 ([id number]) Blood other on 2018-07-28 no information Chart note added (no code) [facility] ([id number]) other on 2018-07-27 no information Chart note added (no code) [facility] ([id number]) other on 2018-07-26 no information Chart note added (no code) [facility] ([id number]) no information Chart note added (no code) [facility] ([id number]) other on 2018-07-23 no information Chart note added (no code) [facility] ([id number]) blood gas on 2018-07-23 Oxygen 97 % (no code) 94 - 100 % 07-23-2018 [facility] saturation in 10:52-0400 ([id number]) Blood blood gas on 2018-07-22 Oxygen 98 % (no code) 94 - 100 % 07-22-2018 [facility] saturation in 11:05-0400 ([id number]) Blood other on 2018-07-21 no information Chart note added (no code) [facility] ([id number]) blood gas on 2018-07-21 Oxygen 97 % (no code) 94 - 100 % 07-21-2018 [facility] saturation in 11:36-0400 ([id number]) Blood blood gas on 2018-07-20 Oxygen 98 % (no code) 94 - 100 % 07-20-2018 [facility] saturation in 14:03-0400 ([id number]) Blood other on 2018-07-19 no information Chart note added (no code) [facility] ([id number]) no information Chart note added (no code) [facility] ([id number]) blood gas on 2018-07-19 Oxygen 98 % (no code) 94 - 100 % 07-19-2018 [facility] saturation in 14:21-0400 ([id number]) Blood blood gas on 2018-07-17 Oxygen 98 % (no code) 94 - 100 % 07-17-2018 [facility] saturation in 10:37-0400 ([id number]) Blood other on 2018-07-16 no information Chart note added (no code) [facility] ([id number]) blood gas on 2018-07-16 Oxygen 98 % (no code) 94 - 100 % 07-16-2018 [facility] saturation in 10:21-0400 ([id number]) Blood other on 2018-07-15 no information Chart note added (no code) [facility] ([id number]) no information Chart note added (no code) [facility] ([id number]) blood gas on 2018-07-15 Oxygen 98 % (no code) 94 - 100 % 07-15-2018 [facility] saturation in 11:38-0400 ([id number]) Blood blood gas on 2018-07-14 Oxygen 94 % (no code) 94 - 100 % 07-14-2018 [facility] saturation in 16:42-0400 ([id number]) Blood other on 2018-07-13 no information Chart note added (no code) [facility] ([id number]) other on 2018-07-12 no information Chart note added (no code) [facility] ([id number]) no information Chart note added (no code) [facility] ([id number]) blood gas on 2018-07-12 Oxygen 98 % (no code) 94 - 100 % 07-12-2018 [facility] saturation in 13:40-0400 ([id number]) Blood blood gas on 2018-07-10 Oxygen 97 % (no code) 94 - 100 % 07-10-2018 [facility] saturation in 10:44-0400 ([id number]) Blood blood gas on 2018-07-09 Oxygen 96 % (no code) 94 - 100 % 07-09-2018 [facility] saturation in 11:42-0400 ([id number]) Blood other on 2018-07-08 no information Chart note added (no code) [facility] ([id number]) no information Chart note added (no code) [facility] ([id number]) blood gas on 2018-07-08 Oxygen 97 % (no code) 94 - 100 % 07-08-2018 [facility] saturation in 11:43-0400 ([id number]) Blood blood gas on 2018-07-07 Oxygen 97 % (no code) 94 - 100 % 07-07-2018 [facility] saturation in 17:02-0400 ([id number]) Blood other on 2018-07-05 no information Chart note added (no code) [facility] ([id number]) blood gas on 2018-07-04 Oxygen 92 % (no code) 94 - 100 % 07-04-2018 [facility] saturation in 16:14-0400 ([id number]) Blood blood gas on 2018-07-03 Oxygen 97 % (no code) 94 - 100 % 07-03-2018 [facility] saturation in 10:35-0400 ([id number]) Blood other on 2018-07-02 no information Chart note added (no code) [facility] ([id number]) blood gas on 2018-07-02 Oxygen 96 % (no code) 94 - 100 % 07-02-2018 [facility] saturation in 11:22-0400 ([id number]) Blood other on 2018-07-01 no information Chart note added (no code) [facility] ([id number]) blood gas on 2018-07-01 Oxygen 99 % (no code) 94 - 100 % 07-01-2018 [facility] saturation in 11:50-0400 ([id number]) Blood other on 2018-06-30 no information Chart note added (no code) [facility] ([id number]) blood gas on 2018-06-30 Oxygen 98 % (no code) 94 - 100 % 06-30-2018 [facility] saturation in 10:36-0400 ([id number]) Blood other on 2018-06-29 no information Chart note added (no code) [facility] ([id number]) no information Chart note added (no code) [facility] ([id number]) blood gas on 2018-06-29 Oxygen 98 % (no code) 94 - 100 % 06-29-2018 [facility] saturation in 11:12-0400 ([id number]) Blood other on 2018-06-28 no information Chart note added (no code) [facility] ([id number]) no information Chart note added (no code) [facility] ([id number]) blood gas on 2018-06-28 Oxygen 99 % (no code) 94 - 100 % 06-28-2018 [facility] saturation in 13:26-0400 ([id number]) Blood other on 2018-06-25 no information Chart note added (no code) [facility] ([id number]) blood gas on 2018-06-25 Oxygen 98 % (no code) 94 - 100 % 06-25-2018 [facility] saturation in 10:23-0400 ([id number]) Blood other on 2018-06-24 no information Chart note added (no code) [facility] ([id number]) blood gas on 2018-06-24 Oxygen 99 % (no code) 94 - 100 % 06-24-2018 [facility] saturation in 11:03-0400 ([id number]) Blood other on 2018-06-23 no information Chart note added (no code) [facility] ([id number]) blood gas on 2018-06-23 Oxygen 98 % (no code) 94 - 100 % 06-23-2018 [facility] saturation in 10:43-0400 ([id number]) Blood thyroid on 2018-06-22 Free T4 1.00 ng/dL (no code) 0.9 - 2.2 ng/dL 06-22-2018 [facility] [Mass/Vol] 17:50-0400 [facility] ([id number]) TSH Qn 2.31 (no code) 06-22-2018 Hospital 17:50-0400 [facility] ([id number]) other on 2018-06-22 Albumin BCG dye 3.8 (no code) 06-22-2018 Hospital [Mass/Vol] 17:50-0400 [facility] ([id number]) Erythrocyte 12.7 % (no code) 11.6 - 14.6 % 06-22-2018 Hospit al distribution 17:50-0400 [facility] width (RBC) [facility] [Ratio] ([id number]) GFR/1.73 sq 69 (no code) 90 - 120 06-22-2018 Hospital M.predicted MDRD mL/min/{1.73_m2} mL/min/{1.73_m2} 17:50-0400 [facility] (S/P/Bld) [Vol [facility] rate/Area] ([id number]) Globulin (S) 2.2 g/dL (L) 2 - 3.5 g/dL 06-22-2018 Hospit al [Mass/Vol] 17:50-0400 [facility] ([id number]) HCO3 (P) 22 (no code) 06-22-2018 Hospital [Moles/Vol] 17:50-0400 [facility] ([id number]) MCHC (RBC) 34.0 g/dL (no code) 32 - 36 g/dL 06-22-2018 Hospital [Mass/Vol] 17:50-0400 [facility] ([id number]) Osmolality Calc 269 (L) 06-22-2018 Hospital [Osmolality] 17:50-0400 [facility] ([id number]) Platelet mean 11.7 fL (H) 7.2 - 11.7 fL 06-22-2018 Hosp ital volume (Bld) 17:50-0400 [facility] [Entitic vol] [facility] ([id number]) no information Chart note added (no code) [facility] ([id number]) no information Chart note added (no code) [facility] ([id number]) no information Chart note added (no code) [facility] ([id number]) metabolic panel on 2018-06-22 ALP [Catalytic 47 U/L (no code) 44 - 147 U/L 06-22-2018 Hosp ital activity/Vol] 17:50-0400 [facility] ([id number]) ALT [Catalytic 12 U/L (no code) 4 - 40 U/L 06-22-2018 Hospit al activity/Vol] 17:50-0400 [facility] ([id number]) Anion gap 14 mmol/L (no code) 3 - 11 mmol/L 06-22-2018 Hospital [Moles/Vol] 17:50-0400 [facility] ([id number]) AST [Catalytic 23 U/L (no code) 10 - 34 U/L 06-22-2018 [facility] activity/Vol] 17:50-0400 [facility] ([id number]) Bilirubin 0.3 mg/dL (no code) 0.1 - 1.2 mg/dL 06-22-2018 Hospit al [Mass/Vol] 17:50-0400 [facility] ([id number]) Calcium 9.4 mg/dL (no code) 8.5 - 10.2 mg/dL 06-22-2018 [facility] [Mass/Vol] 17:50-0400 [facility] ([id number]) Chloride 99 mmol/L (no code) 95 - 106 mmol/L 06-22-2018 Hospit al [Moles/Vol] 17:50-0400 [facility] ([id number]) Creatinine 0.80 mg/dL (no code) 06-22-2018 Hospital [Mass/Vol] 17:500400 [facility] ([id number]) Glucose 94 mg/dL (no code) 60 - 125 mg/dL 06-22-2018 [facility]ospita l [Mass/Vol] 17:50-0400 [facility] ([id number]) Magnesium 1.7 mg/dL (no code) 1.7 - 2.2 mg/dL 06-22-2018 Hospit al [Mass/Vol] 17:50-0400 [facility] ([id number]) Potassium 4.8 mmol/L (no code) 3.7 - 5.2 mmol/L 06-22-2018 Hosp ital [Moles/Vol] 17:500400 [facility] ([id number]) Protein 6.0 g/dL (no code) 6.4 - 8.3 g/dL 06-22-2018 [facility]ospita l [Mass/Vol] 17:50-0400 [facility] ([id number]) Sodium 130 mmol/L (L) 135 - 145 mmol/L 06-22-2018 Hosp ital [Moles/Vol] 17:50-0400 [facility] ([id number]) Urea nitrogen 13 mg/dL (no code) 7 - 20 mg/dL 06-22-2018 [facility] [Mass/Vol] 17:[id number] [facility] ([id number]) hematology on 2018-06-22 Basophils (Bld) 0.0 10*3/uL (no code) 0 - 0.3 10*3/uL 06-22-2018 Hospital [#/Vol] 17:50-0400 [facility] ([id number]) Basophils/100 0.20 % (no code) 0.5 - 1 % 06-22-2018 Hospital WBC (Bld) 17:50-0400 [facility] ([id number]) Eosinophils 0.2 10*3/uL (no code) 0.05 - 0.5 06-22-2018 Hospita l (Bld) [#/Vol] 10*3/uL 17:50-0400 [facility] ([id number]) Eosinophils/100 1.5 % (no code) 1 - 4 % 06-22-2018 Hospit al WBC (Bld) 17:50-0400 [facility] ([id number]) Hematocrit (Bld) 32.1 % (L) 36.1 - 50.3 % 06-22-2018 H [facility]spital [Volume 17:50-0400 [facility] fraction] [facility] ([id number]) Hemoglobin (Bld) 10.9 g/dL (L) 12.1 - 17.2 g/dL 06-22-2018 Hospital [Mass/Vol] 17:50-0400 [facility] ([id number]) Lymphocytes 1.54 10*3/uL (no code) 0.9 - 2.9 06-22-2018 Hospita l (Bld) [#/Vol] 10*3/uL 17:50-0400 [facility] ([id number]) Lymphocytes/100 15.8 % (no code) 20 - 40 % 06-22-2018 Hospit al WBC (Bld) 17:50-0400 [facility] ([id number]) MCH (RBC) 33.3 pg (H) 27 - 31 pg 06-22-2018 Hospital [Entitic mass] 17:50-0400 [facility] ([id number]) MCV (RBC) 98.2 fL (H) 80 - 100 fL 06-22-2018 Hospital [Entitic vol] 17:50-0400 [facility] ([id number]) Monocytes (Bld) 0.8 10*3/uL (no code) 0.3 - 0.9 06-22-2018 Hosp ital [#/Vol] 10*3/uL 17:50-0400 [facility] ([id number]) Monocytes/100 8.2 % (no code) 2 - 8 % 06-22-2018 Hospital WBC (Bld) 17:50-0400 [facility] ([id number]) Neutrophils 7.26 10*3/uL (H) 1.7 - 7 10*3/uL 06-22-2018 H ospital (Bld) [#/Vol] 17:50-0400 [facility] ([id number]) Neutrophils/100 74.3 % (no code) 40 - 60 % 06-22-2018 Hospit al WBC (Bld) 17:50-0400 [facility] ([id number]) Platelets (Bld) 236 10*3/uL (no code) 150 - 450 06-22-2018 Hosp ital [#/Vol] 10*3/uL 17:50-0400 [facility] ([id number]) RBC (Bld) 3.27 10*6/uL (L) 4.2 - 6.1 06-22-2018 Hospital [#/Vol] 10*6/uL 17:50-0400 [facility] ([id number]) WBC (Bld) 9.77 10*3/uL (no code) 3.5 - 10.5 06-22-2018 Hospital [#/Vol] 10*3/uL 17:50-0400 [facility] ([id number]) blood gas on 2018-06-22 Oxygen 93 % (no code) 94 - 100 % 06-22-2018 [facility] saturation in 13:36-0400 ([id number]) Blood other on 2018-06-21 no information Chart note added (no code) [facility] ([id number]) blood gas on 2018-06-21 Oxygen 99 % (no code) 94 - 100 % 06-21-2018 [facility] saturation in 12:47-0400 ([id number]) Blood other on 2018-06-20 no information Chart note added (no code) [facility] ([id number]) other on 2018-06-18 no information Chart note added (no code) [facility] ([id number]) no information Chart note added (no code) [facility] ([id number]) blood gas on 2018-06-18 Oxygen 98 % (no code) 94 - 100 % 06-18-2018 [facility] saturation in 11:26-0400 ([id number]) Blood other on 2018-06-17 no information Chart note added (no code) [facility] ([id number]) blood gas on 2018-06-17 Oxygen 98 % (no code) 94 - 100 % 06-17-2018 [facility] saturation in 09:46-0400 ([id number]) Blood other on 2018-06-16 no information Chart note added (no code) [facility] ([id number]) no information Chart note added (no code) [facility] ([id number]) blood gas on 2018-06-16 Oxygen 99 % (no code) 94 - 100 % 06-16-2018 [facility] saturation in 10:13-0400 ([id number]) Blood other on 2018-06-15 no information Chart note added (no code) [facility] ([id number]) no information Chart note added (no code) [facility] ([id number]) blood gas on 2018-06-15 Oxygen 99 % (no code) 94 - 100 % 06-15-2018 [facility] saturation in 09:41-0400 ([id number]) Blood Oxygen 98 % (no code) 94 - 100 % 06-15-2018 [facility] saturation in 14:43-0400 ([id number]) Blood other on 2018-06-14 no information Chart note added (no code) [facility] ([id number]) no information Chart note added (no code) [facility] ([id number]) blood gas on 2018-06-14 Oxygen 97 % (no code) 94 - 100 % 06-14-2018 [facility] saturation in 10:42-0400 ([id number]) Blood blood gas on 2018-06-13 Oxygen 92 % (no code) 94 - 100 % 06-13-2018 [facility] saturation in 09:55-0400 ([id number]) Blood blood gas on 2018-06-12 Oxygen 91 % (no code) 94 - 100 % 06-12-2018 [facility] saturation in 10:19-0400 ([id number]) Blood other on 2018-06-11 no information Chart note added (no code) [facility] ([id number]) blood gas on 2018-06-11 Oxygen 97 % (no code) 94 - 100 % 06-11-2018 [facility] saturation in 11:20-0400 ([id number]) Blood other on 2018-06-10 no information Chart note added (no code) [facility] ([id number]) blood gas on 2018-06-10 Oxygen 99 % (no code) 94 - 100 % 06-10-2018 [facility] saturation in 10:19-0400 ([id number]) Blood other on 2018-06-09 no information Chart note added (no code) [facility] ([id number]) no information Chart note added (no code) [facility] ([id number]) blood gas on 2018-06-09 Oxygen 99 % (no code) 94 - 100 % 06-09-2018 [facility] saturation in 12:42-0400 ([id number]) Blood blood gas on 2018-06-08 Oxygen 96 % (no code) 94 - 100 % 06-08-2018 [facility] saturation in 16:50-0400 ([id number]) Blood other on 2018-06-07 no information Chart note added (no code) [facility] ([id number]) no information Chart note added (no code) [facility] ([id number]) blood gas on 2018-06-07 Oxygen 99 % (no code) 94 - 100 % 06-07-2018 [facility] saturation in 13:38-0400 ([id number]) Blood other on 2018-06-04 no information Chart note added (no code) [facility] ([id number]) blood gas on 2018-06-04 Oxygen 98 % (no code) 94 - 100 % 06-04-2018 [facility] saturation in 12:06-0400 ([id number]) Blood other on 2018-06-03 no information Chart note added (no code) [facility] ([id number]) no information Chart note added (no code) [facility] ([id number]) blood gas on 2018-06-03 Oxygen 98 % (no code) 94 - 100 % 06-03-2018 [facility] saturation in 11:43-0400 ([id number]) Blood other on 2018-06-02 no information Chart note added (no code) [facility] ([id number]) blood gas on 2018-06-02 Oxygen 98 % (no code) 94 - 100 % 06-02-2018 [facility] saturation in 10:52-0400 ([id number]) Blood other on 2018-06-01 no information Chart note added (no code) [facility] ([id number]) blood gas on 2018-06-01 Oxygen 99 % (no code) 94 - 100 % 06-01-2018 [facility] saturation in 15:09-0400 ([id number]) Blood other on 2018-05-31 no information Chart note added (no code) [facility] ([id number]) no information Chart note added (no code) [facility] ([id number]) blood gas on 2018-05-31 Oxygen 99 % (no code) 94 - 100 % 05-31-2018 [facility] saturation in 14:32-0400 ([id number]) Blood blood gas on 2018-05-29 Oxygen 98 % (no code) 94 - 100 % 05-29-2018 [facility] saturation in 11:46-0500 ([id number]) Blood other on 2018-05-28 no information Chart note added (no code) [facility] ([id number]) blood gas on 2018-05-28 Oxygen 98 % (no code) 94 - 100 % 05-28-2018 [facility] saturation in 10:53-0500 ([id number]) Blood other on 2018-05-27 no information Chart note added (no code) [facility] ([id number]) blood gas on 2018-05-27 Oxygen 97 % (no code) 94 - 100 % 05-27-2018 [facility] saturation in 09:24-0500 ([id number]) Blood Oxygen 98 % (no code) 94 - 100 % 05-27-2018 [facility] saturation in 11:02-0500 ([id number]) Blood other on 2018-05-26 no information Chart note added (no code) [facility] ([id number]) blood gas on 2018-05-26 Oxygen 98 % (no code) 94 - 100 % 05-26-2018 [facility] saturation in 10:36-0500 ([id number]) Blood other on 2018-05-24 no information Chart note added (no code) [facility] ([id number]) no information Chart note added (no code) [facility] ([id number]) blood gas on 2018-05-22 Oxygen 99 % (no code) 94 - 100 % 05-22-2018 [facility] saturation in 12:17-0500 ([id number]) Blood other on 2018-05-21 FLUAV and FLUBV Negative (no code) 05-21-2018 Hospital Ag IA.rapid Nom 19:30-0500 [facility] (Nose[facility] ([id number]) blood gas on 2018-05-21 Oxygen 98 % (no code) 94 - 100 % 05-21-2018 [facility] saturation in 16:40-0500 ([id number]) Blood other on 2018-05-19 no information Chart note added (no code) [facility] ([id number]) blood gas on 2018-05-19 Oxygen 98 % (no code) 94 - 100 % 05-19-2018 [facility] saturation in 10:34-0500 ([id number]) Blood other on 2018-05-18 no information Chart note added (no code) [facility] ([id number]) no information Chart note added (no code) [facility] ([id number]) blood gas on 2018-05-18 Oxygen 99 % (no code) 94 - 100 % 05-18-2018 [facility] saturation in 10:49-0500 ([id number]) Blood other on 2018-05-17 no information Chart note added (no code) [facility] ([id number]) no information Chart note added (no code) [facility] ([id number]) blood gas on 2018-05-17 Oxygen 98 % (no code) 94 - 100 % 05-17-2018 [facility] saturation in 11:50-0500 ([id number]) Blood blood gas on 2018-05-15 Oxygen 98 % (no code) 94 - 100 % 05-15-2018 [facility] saturation in 16:35-0500 ([id number]) Blood other on 2018-05-14 no information Chart note added (no code) [facility] ([id number]) blood gas on 2018-05-14 Oxygen 97 % (no code) 94 - 100 % 05-14-2018 [facility] saturation in 10:39-0500 ([id number]) Blood other on 2018-05-13 no information Chart note added (no code) [facility] ([id number]) other on 2018-05-12 no information Chart note added (no code) [facility] ([id number]) no information Chart note added (no code) [facility] ([id number]) other on 2018-05-11 no information Chart note added (no code) [facility] ([id number]) blood gas on 2018-05-11 Oxygen 97 % (no code) 94 - 100 % 05-11-2018 [facility] saturation in 14:04-0500 ([id number]) Blood other on 2018-05-10 no information Chart note added (no code) [facility] ([id number]) no information Chart note added (no code) [facility] ([id number]) no information Chart note added (no code) [facility] ([id number]) blood gas on 2018-05-10 Oxygen 97 % (no code) 94 - 100 % 05-10-2018 [facility] saturation in 14:02-0500 ([id number]) Blood blood gas on 2018-05-08 Oxygen 89 % (L) 94 - 100 % 05-08-2018 [facility] saturation in 10:37-0500 ([id number]) Blood other on 2018-05-07 no information Chart note added (no code) [facility] ([id number]) blood gas on 2018-05-07 Oxygen 98 % (no code) 94 - 100 % 05-07-2018 [facility] saturation in 11:41-0500 ([id number]) Blood other on 2018-05-06 no information Chart note added (no code) [facility] ([id number]) blood gas on 2018-05-06 Oxygen 100 % (no code) 94 - 100 % 05-06-2018 [facility] saturation in 10:41-0500 ([id number]) Blood other on 2018-05-05 no information Chart note added (no code) [facility] ([id number]) blood gas on 2018-05-05 Oxygen 95 % (no code) 94 - 100 % 05-05-2018 [facility] saturation in 10:44-0500 ([id number]) Blood other on 2018-05-04 no information Chart note added (no code) [facility] ([id number]) blood gas on 2018-05-04 Oxygen 99 % (no code) 94 - 100 % 05-04-2018 [facility] saturation in 14:01-0500 ([id number]) Blood other on 2018-05-03 no information Chart note added (no code) [facility] ([id number]) no information Chart note added (no code) [facility] ([id number]) no information Chart note added (no code) [facility] ([id number]) blood gas on 2018-05-03 Oxygen 97 % (no code) 94 - 100 % 05-03-2018 [facility] saturation in 10:53-0500 ([id number]) Blood blood gas on 2018-05-02 Oxygen 99 % (no code) 94 - 100 % 05-02-2018 [facility] saturation in 09:22-0500 ([id number]) Blood blood gas on 2018-05-01 Oxygen 98 % (no code) 94 - 100 % 05-01-2018 [facility] saturation in 12:21-0500 ([id number]) Blood other on 2018-04-30 no information Chart note added (no code) [facility] ([id number]) other on 2018-04-29 no information Chart note added (no code) [facility] ([id number]) no information Chart note added (no code) [facility] ([id number]) other on 2018-04-28 no information Chart note added (no code) [facility] ([id number]) no information Chart note added (no code) [facility] ([id number]) blood gas on 2018-04-28 Oxygen 98 % (no code) 94 - 100 % 04-28-2018 [facility] saturation in 10:46-0500 ([id number]) Blood other on 2018-04-27 no information Chart note added (no code) [facility] ([id number]) no information Chart note added (no code) [facility] ([id number]) blood gas on 2018-04-27 Oxygen 99 % (no code) 94 - 100 % 04-27-2018 [facility] saturation in 13:56-0500 ([id number]) Blood other on 2018-04-26 no information Chart note added (no code) [facility] ([id number]) no information Chart note added (no code) [facility] ([id number]) no information Chart note added (no code) [facility] ([id number]) blood gas on 2018-04-26 Oxygen 98 % (no code) 94 - 100 % 04-26-2018 [facility] saturation in 10:01-0500 ([id number]) Blood other on 2018-04-23 no information Chart note added (no code) [facility] ([id number]) blood gas on 2018-04-23 Oxygen 98 % (no code) 94 - 100 % 04-23-2018 [facility] saturation in 10:40-0500 ([id number]) Blood other on 2018-04-22 no information Chart note added (no code) [facility] ([id number]) blood gas on 2018-04-22 Oxygen 98 % (no code) 94 - 100 % 04-22-2018 [facility] saturation in 12:19-0500 ([id number]) Blood other on 2018-04-21 no information Chart note added (no code) [facility] ([id number]) blood gas on 2018-04-21 Oxygen 98 % (no code) 94 - 100 % 04-21-2018 [facility] saturation in 13:10-0500 ([id number]) Blood other on 2018-04-20 no information Chart note added (no code) [facility] ([id number]) blood gas on 2018-04-20 Oxygen 98 % (no code) 94 - 100 % 04-20-2018 [facility] saturation in 11:17-0500 ([id number]) Blood other on 2018-04-19 no information Chart note added (no code) [facility] ([id number]) no information Chart note added (no code) [facility] ([id number]) no information Chart note added (no code) [facility] ([id number]) blood gas on 2018-04-19 Oxygen 99 % (no code) 94 - 100 % 04-19-2018 [facility] saturation in 13:48-0500 ([id number]) Blood blood gas on 2018-04-18 Oxygen 98 % (no code) 94 - 100 % 04-18-2018 [facility] saturation in 09:56-0500 ([id number]) Blood other on 2018-04-16 no information Chart note added (no code) [facility] ([id number]) no information Chart note (no code) [facility] updated ([id number]) blood gas on 2018-04-16 Oxygen 99 % (no code) 94 - 100 % 04-16-2018 [facility] saturation in 09:28-0500 ([id number]) Blood Oxygen 99 % (no code) 94 - 100 % 04-16-2018 [facility] saturation in 10:31-0500 ([id number]) Blood other on 2018-04-15 Albumin BCG dye 3.8 (no code) 04-15-2018 Hospital [Mass/Vol] 20:00-0500 [facility] ([id number]) Cobalamin 921.00 pg/mL (H) 200 - 900 pg/mL 04-15-2018 Hos pital (Vitamin B12) 20:00-0500 [facility] [Mass/Vol] [facility] ([id number]) Erythrocyte 12.0 % (no code) 11.6 - 14.6 % 04-15-2018 Hospit al distribution 20:000500 [facility] width (RBC) [facility] [Ratio] ([id number]) GFR/1.73 sq 63 (no code) 90 - 120 04-15-2018 Hospital M.predicted MDRD mL/min/{1.73_m2} mL/min/{1.73_m2} 20:000500 [facility] (S/P/Bld) [Vol [facility] rate/Area] ([id number]) Globulin (S) 1.9 g/dL (L) 2 - 3.5 g/dL 04-15-2018 Hospit al [Mass/Vol] 20:00-0500 [facility] (58201) HCO3 (P) 23 (no code) 04-15-2018 Hospital [Moles/Vol] 20:050 [facility] (30168) MCHC (RBC) 33.8 g/dL (no code) 32 - 36 g/dL 04-15-2018 Hospital [Mass/Vol] 20:0500 [facility] (48010) Osmolality Calc 273 (L) 04-15-2018 Hospital [Osmolality] : [facility] (18429) Platelet mean 11.3 fL (H) 7.2 - 11.7 fL 04-15-2018 Hosp ital volume (Bld) :050 [facility] [Entitic vol] [facility] (35201) no information Chart note added (no code) [facility] ([id number]) no information Chart note added (no code) [facility] ([id number]) metabolic panel on 2018-04-15 ALP [Catalytic 51 U/L (no code) 44 - 147 U/L 04-15-2018 Hosp ital activity/Vol] 20:050 [facility] ([id number]) ALT [Catalytic 9 U/L (no code) 4 - 40 U/L 04-15-2018 Hospit al activity/Vol] 20:050 [facility] ([id number]) Anion gap 15 mmol/L (H) 3 - 11 mmol/L 04-15-2018 Hospital [Moles/Vol] 20:050 [facility] (43346) AST [Catalytic 21 U/L (no code) 10 - 34 U/L 04-15-2018 Hospi lalo activity/Vol] 20:050 [facility] (36244) Bilirubin 0.3 mg/dL (no code) 0.1 - 1.2 mg/dL 04-15-2018 Hospit al [Mass/Vol] :050 [facility] (90330) Calcium 8.9 mg/dL (no code) 8.5 - 10.2 mg/dL 04-15-2018 Hospi lalo [Mass/Vol] :050 [facility] (36425) Chloride 98 mmol/L (no code) 95 - 106 mmol/L 04-15-2018 Hospit al [Moles/Vol] 20:000500 [facility] (52564) Creatinine 0.86 mg/dL (no code) 04-15-2018 Hospital [Mass/Vol] 20:000500 [facility] (57180) Glucose 109 mg/dL (no code) 60 - 125 mg/dL 04-15-2018 Hospita l [Mass/Vol] 20:000500 [facility] (81923) Potassium 5.0 mmol/L (no code) 3.7 - 5.2 mmol/L 04-15-2018 Hosp ital [Moles/Vol] 20:000500 [facility] (46586) Protein 5.7 g/dL (L) 6.4 - 8.3 g/dL 04-15-2018 Hospita l [Mass/Vol] 20:000500 [facility] (74060) Sodium 131 mmol/L (L) 135 - 145 mmol/L 04-15-2018 Hosp ital [Moles/Vol] 20:000500 [facility] (06127) Urea nitrogen 18 mg/dL (no code) 7 - 20 mg/dL 04-15-2018 Hospi lalo [Mass/Vol] 20:000500 [facility] (12063) hematology on 2018-04-15 Basophils (Bld) 0.0 10*3/uL (no code) 0 - 0.3 10*3/uL 04-15-2018 Hospital [#/Vol] 20:000500 [facility] (65862) Basophils/100 0.20 % (no code) 0.5 - 1 % 04-15-2018 Hospital WBC (Bld) :000500 [facility] (98340) Eosinophils 0.1 10*3/uL (no code) 0.05 - 0.5 04-15-2018 Hospita l (Bld) [#/Vol] 10*3/uL 20:000500 [facility] (15660) Eosinophils/100 1.3 % (no code) 1 - 4 % 04-15-2018 Hospit al WBC (Bld) 20:000500 [facility] (20329) Hematocrit (Bld) 30.5 % (L) 36.1 - 50.3 % 04-15-2018 H ospital [Volume 20:000500 [facility] fraction] [facility] (22171) Hemoglobin (Bld) 10.3 g/dL (L) 12.1 - 17.2 g/dL 04-15-2018 Hospital [Mass/Vol] 20:000500 [facility] (60004) Lymphocytes 1.94 10*3/uL (no code) 0.9 - 2.9 04-15-2018 Hospita l (Bld) [#/Vol] 10*3/uL 20:000500 [facility] (85201) Lymphocytes/100 18.0 % (no code) 20 - 40 % 04-15-2018 Hospit al WBC (Bld) 20:000500 [facility] (03966) MCH (RBC) 33.1 pg (H) 27 - 31 pg 04-15-2018 Hospital [Entitic mass] 20:000500 [facility] (44239) MCV (RBC) 98.1 fL (H) 80 - 100 fL 04-15-2018 Hospital [Entitic vol] 20:000500 [facility] (71685) Monocytes (Bld) 1.1 10*3/uL (H) 0.3 - 0.9 04-15-2018 Hosp ital [#/Vol] 10*3/uL 20:000500 [facility] (43247) Monocytes/100 10.6 % (no code) 2 - 8 % 04-15-2018 Hospital WBC (Bld) 20:000500 [facility] (80130) Neutrophils 7.56 10*3/uL (H) 1.7 - 7 10*3/uL 04-15-2018 H ospital (Bld) [#/Vol] 20:000500 [facility] (44921) Neutrophils/100 69.9 % (no code) 40 - 60 % 04-15-2018 Hospit al WBC (Bld) 20:000500 [facility] (53066) Platelets (Bld) 286 10*3/uL (no code) 150 - 450 04-15-2018 Hosp ital [#/Vol] 10*3/uL 20:00-0500 [facility] (65962) RBC (Bld) 3.11 10*6/uL (L) 4.2 - 6.1 04-15-2018 Hospital [#/Vol] 10*6/uL 20:00-0500 [facility] (50612) WBC (Bld) 10.80 10*3/uL (H) 3.5 - 10.5 04-15-2018 Hospita l [#/Vol] 10*3/uL 20:00-0500 [facility] (79288) blood gas on 2018-04-15 Oxygen 99 % (no code) 94 - 100 % 04-15-2018 [facility] saturation in 09:59-0500 (58247) Blood Oxygen 99 % (no code) 94 - 100 % 04-15-2018 [facility] saturation in 12:29-0500 (99526) Blood other on 2018-04-14 no information Chart note added (no code) [facility] ([id number]) blood gas on 2018-04-14 Oxygen 98 % (no code) 94 - 100 % 04-14-2018 [facility] saturation in 10:42-0500 (56396) Blood other on 2018-04-13 no information Chart note added (no code) [facility] (92474) no information Chart note added (no code) [facility] ([id number]) no information Chart note added (no code) [facility] (63330) blood gas on 2018-04-13 Oxygen 99 % (no code) 94 - 100 % 04-13-2018 [facility] saturation in 14:54-0500 ([id number]) Blood other on 2018-04-12 no information Chart note added (no code) [facility] ([id number]) blood gas on 2018-04-12 Oxygen 99 % (no code) 94 - 100 % 04-12-2018 [facility] saturation in 17:53-0500 ([id number]) Blood blood gas on 2018-04-10 Oxygen 99 % (no code) 94 - 100 % 04-10-2018 [facility] saturation in 10:19-0500 ([id number]) Blood other on 2018-04-09 no information Chart note added (no code) [facility] ([id number]) blood gas on 2018-04-09 Oxygen 98 % (no code) 94 - 100 % 04-09-2018 [facility] saturation in 15:10-0500 (03259) Blood other on 2018-04-08 no information Chart note added (no code) [facility] ([id number]) blood gas on 2018-04-08 Oxygen 98 % (no code) 94 - 100 % 04-08-2018 [facility] saturation in 10:08-0500 (76195) Blood other on 2018-04-07 no information Chart note added (no code) [facility] (59651) no information Chart note added (no code) [facility] ([id number]) blood gas on 2018-04-07 Oxygen 99 % (no code) 94 - 100 % 04-07-2018 [facility] saturation in 10:50-0500 ([id number]) Blood urinalysis on 2018-04-06 Chloride (U) 66.00 mmol/L (H) 04-06-2018 Hospital [Moles/Vol] [facility] (87822) Clarity (U) Clear (no code) 04-06-2018 Hospital [facility] (01343) Color (U) Yellow (no code) 04-06-2018 Hospital [facility] (73768) Epithelial 0-5/HPF (A) 04-06-2018 Hospital cells.squamous [facility] LM.HPF (Urine [facility] sed) [#/Area] (49654) Leukocyte Negative (no code) 04-06-2018 Hospital esterase Test : [facility] strip Ql (U) [facility] (05989) Potassium (U) 22.60 mmol/L (H) 04-06-2018 Hospital [Moles/Vol] 01: [facility] (50431) Protein (U) Negative (no code) 0 - 20 mg/dL 04-06-2018 Hospita l [Mass/Vol] 01: [facility] (98272) RBC LM.HPF 0-2/HPF (A) 04-06-2018 Hospital (Urine sed) 01: [facility] [#/Area] [facility] (73848) Sodium (U) 71.00 mmol/L (H) 0 - 20 mmol/L 04-06-2018 Hosp ital [Moles/Vol] 01: [facility] (09397) Specific gravity 1.015 (no code) 04-06-2018 Hospital (U) [Rel 01: [facility] density] [facility] (65179) WBC LM.HPF Rare/HPF (A) 04-06-2018 Hospital (Urine sed) 01: [facility] [#/Area] [facility] (86831) thyroid on 2018-04-06 Free T4 0.93 ng/dL (no code) 0.9 - 2.2 ng/dL 04-06-2018 Hospi lalo [Mass/Vol] 06: [facility] (94013) TSH Qn 3.27 (no code) 04-06-2018 Hospital 06: [facility] (85301) other on 2018-04-06 Bacteria LM Ql Negative (no code) 04-06-2018 Hospital (Urine sed) 01: [facility] (31633) Bilirubin N/A (A) 04-06-2018 Hospital Confirm Ql (U) 01: [facility] (72167) Bilirubin Ql (U) Negative (no code) 04-06-2018 Hospital 01: [facility] (75130) Erythrocyte 12.0 % (no code) 11.6 - 14.6 % 04-06-2018 Hospit al distribution 06:25 [facility] width (RBC) [facility] [Ratio] (31591) GFR/1.73 sq 73 (no code) 90 - 120 04-06-2018 Hospital M.predicted MDRD mL/min/{1.73_m2} mL/min/{1.73_m2} 06: [facility] (S/P/Bld) [Vol [facility] rate/Area] (36967) Glucose Test Negative (no code) 04-06-2018 Hospital strip (U) 01: [facility] [Mass/Vol] [facility] (04376) HCO3 (P) 23 (no code) 04-06-2018 Hospital [Moles/Vol] 06: [facility] (65000) Hemoglobin Ql Negative (no code) 04-06-2018 Hospital (U) 01: [facility] (40819) Ketones (U) Negative (no code) 04-06-2018 Hospital [Mass/Vol] 01: [facility] (75908) MCHC (RBC) 33.9 g/dL (no code) 32 - 36 g/dL 04-06-2018 Hospital [Mass/Vol] 06: [facility] (63596) Nitrite Ql (U) Negative (no code) 04-06-2018 Hospital 01: [facility] (57658) Osmolality Calc 271 (L) 04-06-2018 Hospital [Osmolality] 06: [facility] (05633) pH (U) 7.0 [pH] (no code) 4.6 - 8 [pH] 04-06-2018 Hospital 01: [facility] (92031) Platelet mean 11.3 fL (H) 7.2 - 11.7 fL 04-06-2018 Hosp ital volume (Bld) 06: [facility] [Entitic vol] [facility] (65228) Urine Volume Urine Volume (no code) 04-06-2018 Hospital Sufficient 01: [facility] (10mL) [facility] (51472) Urobilinogen Qn 0.2 (no code) 04-06-2018 Hospital (U) 01: [facility] (32326) no information Chart note added (no code) [facility] ([id number]) no information Urine Saved if (A) 04-06-2018 Hospital Culture Needed 01: [facility] (48hrs from time [facility] of collection) (12168) metabolic panel on 2018-04-06 Anion gap 13 mmol/L (no code) 3 - 11 mmol/L 04-06-2018 Hospital [Moles/Vol] 06:25-0500 [facility] (24929) Calcium 9.2 mg/dL (no code) 8.5 - 10.2 mg/dL 04-06-2018 Hospi lalo [Mass/Vol] 06:25050 [facility] (18395) Chloride 101 mmol/L (no code) 95 - 106 mmol/L 04-06-2018 Hospi lalo [Moles/Vol] 06:050 [facility] (21040) Creatinine 0.76 mg/dL (no code) 04-06-2018 Hospital [Mass/Vol] 06:050 [facility] (24154) Glucose 83 mg/dL (no code) 60 - 125 mg/dL 04-06-2018 Hospita l [Mass/Vol] 06:250500 [facility] (87206) Potassium 4.6 mmol/L (no code) 3.7 - 5.2 mmol/L 04-06-2018 Hosp ital [Moles/Vol] 06:250500 [facility] (38631) Sodium 132 mmol/L (L) 135 - 145 mmol/L 04-06-2018 Hosp ital [Moles/Vol] 06:250500 [facility] (31965) Urea nitrogen 9 mg/dL (no code) 7 - 20 mg/dL 04-06-2018 Hospi lalo [Mass/Vol] 06:250500 [facility] (46004) hematology on 2018-04-06 Basophils (Bld) 0.0 10*3/uL (no code) 0 - 0.3 10*3/uL 04-06-2018 Hospital [#/Vol] 06:25-0500 [facility] (58612) Basophils/100 0.30 % (no code) 0.5 - 1 % 04-06-2018 Hospital WBC (Bld) 06: [facility] (77490) Eosinophils 0.3 10*3/uL (no code) 0.05 - 0.5 04-06-2018 Hospita l (Bld) [#/Vol] 10*3/uL 06: [facility] (94183) Eosinophils/100 2.3 % (no code) 1 - 4 % 04-06-2018 Hospit al WBC (Bld) 06: [facility] (05509) Hematocrit (Bld) 30.7 % (L) 36.1 - 50.3 % 04-06-2018 H ospital [Volume 06: [facility] fraction] [facility] (93084) Hemoglobin (Bld) 10.4 Result (L) 04-06-2018 Hospital [Mass/Vol] Verified by : [facility] Repeat Analysis [facility] () Lymphocytes 2.66 10*3/uL (no code) 0.9 - 2.9 04-06-2018 Hospita l (Bld) [#/Vol] 10*3/uL 06: [facility] () Lymphocytes/100 22.7 % (no code) 20 - 40 % 04-06-2018 Hospit al WBC (Bld) 06: [facility] () MCH (RBC) 33.4 pg (H) 27 - 31 pg 04-06-2018 Hospital [Entitic mass] 06: [facility] (89050) MCV (RBC) 98.7 fL (H) 80 - 100 fL 04-06-2018 Hospital [Entitic vol] 06: [facility] (14008) Monocytes (Bld) 1.0 10*3/uL (H) 0.3 - 0.9 04-06-2018 Hosp ital [#/Vol] 10*3/uL 06: [facility] (47269) Monocytes/100 8.2 % (no code) 2 - 8 % 04-06-2018 Hospital WBC (Bld) 06: [facility] (92485) Neutrophils 7.78 10*3/uL (H) 1.7 - 7 10*3/uL 04-06-2018 H ospital (Bld) [#/Vol] 06: [facility] (79532) Neutrophils/100 66.5 % (no code) 40 - 60 % 04-06-2018 Hospit al WBC (Bld) 06: [facility] (93018) Platelets (Bld) 256 10*3/uL (no code) 150 - 450 04-06-2018 Hosp ital [#/Vol] 10*3/uL 06: [facility] (18381) RBC (Bld) 3.11 10*6/uL (L) 4.2 - 6.1 04-06-2018 Hospital [#/Vol] 10*6/uL 06: [facility] (78142) WBC (Bld) 11.70 Result (H) 04-06-2018 Hospital [#/Vol] Verified by 06: [facility] (56395) cardiac on 2018-04-06 CRP [Mass/Vol] 0.05 (no code) 04-06-2018 Hospital 06: [facility] (45754) other on 2018-04-05 Albumin BCG dye 4.5 (no code) 04-05-2018 Hospital [Mass/Vol] 22:15-0500 [facility] (42737) Erythrocyte 12.1 % (no code) 11.6 - 14.6 % 04-05-2018 Hospit al distribution 22:150500 [facility] width (RBC) [facility] [Ratio] (32454) GFR/1.73 sq 66 (no code) 90 - 120 04-05-2018 Hospital M.predicted MDRD mL/min/{1.73_m2} mL/min/{1.73_m2} 22:15-0500 [facility] (S/P/Bld) [Vol [facility] rate/Area] (05498) Globulin (S) 2.6 g/dL (no code) 2 - 3.5 g/dL 04-05-2018 Hospit al [Mass/Vol] 22:150500 [facility] (13497) HCO3 (P) 22 (no code) 04-05-2018 Hospital [Moles/Vol] 22:150500 [facility] (37564) MCHC (RBC) 33.6 g/dL (no code) 32 - 36 g/dL 04-05-2018 Hospital [Mass/Vol] 22:150500 [facility] (74118) Osmolality Calc 267 (L) 04-05-2018 Hospital [Osmolality] 22:150500 [facility] (65438) Platelet mean 10.9 fL (H) 7.2 - 11.7 fL 04-05-2018 Hosp ital volume (Bld) 22:050 [facility] [Entitic vol] [facility] (21681) no information Chart note added (no code) [facility] (82178) no information Chart note added (no code) [facility] (60924) metabolic panel on 2018-04-05 ALP [Catalytic 53 U/L (no code) 44 - 147 U/L 04-05-2018 Hosp ital activity/Vol] 22:150500 [facility] (63196) ALT [Catalytic 13 U/L (no code) 4 - 40 U/L 04-05-2018 Hospit al activity/Vol] 22:150500 [facility] (21086) Anion gap 15 mmol/L (H) 3 - 11 mmol/L 04-05-2018 Hospital [Moles/Vol] 22:150500 [facility] (58263) AST [Catalytic 26 U/L (no code) 10 - 34 U/L 04-05-2018 Hospi lalo activity/Vol] 22:15050 [facility] (38655) Bilirubin 0.4 mg/dL (no code) 0.1 - 1.2 mg/dL 04-05-2018 Hospit al [Mass/Vol] 22:15050 [facility] (76941) Calcium 10.0 mg/dL (no code) 8.5 - 10.2 mg/dL 04-05-2018 Hosp ital [Mass/Vol] 22:15-0500 [facility] (46408) Chloride 97 mmol/L (no code) 95 - 106 mmol/L 04-05-2018 Hospit al [Moles/Vol] 22:15-0500 [facility] (26191) Creatinine 0.83 mg/dL (no code) 04-05-2018 Hospital [Mass/Vol] 22:150500 [facility] (46856) Glucose 97 mg/dL (no code) 60 - 125 mg/dL 04-05-2018 Hospita l [Mass/Vol] 22:150500 [facility] (70881) Potassium 5.1 mmol/L (no code) 3.7 - 5.2 mmol/L 04-05-2018 Hosp ital [Moles/Vol] 22:150500 [facility] (21526) Protein 7.1 g/dL (no code) 6.4 - 8.3 g/dL 04-05-2018 Hospita l [Mass/Vol] 22:150500 [facility] (95479) Sodium 129 mmol/L (L) 135 - 145 mmol/L 04-05-2018 Hosp ital [Moles/Vol] 22:150500 [facility] (52040) Urea nitrogen 12 mg/dL (no code) 7 - 20 mg/dL 04-05-2018 Hospi lalo [Mass/Vol] 22:15-0500 [facility] (66040) hematology on 2018-04-05 Basophils (Bld) 0.0 10*3/uL (no code) 0 - 0.3 10*3/uL 04-05-2018 Hospital [#/Vol] 22:15-0500 [facility] (44552) Basophils/100 0.20 % (no code) 0.5 - 1 % 04-05-2018 Hospital WBC (Bld) 22:150500 [facility] (78437) Eosinophils 0.3 10*3/uL (no code) 0.05 - 0.5 04-05-2018 Hospita l (Bld) [#/Vol] 10*3/uL 22:15-0500 [facility] (63267) Eosinophils/100 2.0 % (no code) 1 - 4 % 04-05-2018 Hospit al WBC (Bld) 22:150500 [facility] (08624) Hematocrit (Bld) 34.5 % (L) 36.1 - 50.3 % 04-05-2018 H ospital [Volume 22:15050 [facility] fraction] [facility] (19333) Hemoglobin (Bld) 11.6 g/dL (L) 12.1 - 17.2 g/dL 04-05-2018 Hospital [Mass/Vol] 22:15050 [facility] (57788) Lymphocytes 2.73 10*3/uL (no code) 0.9 - 2.9 04-05-2018 Hospita l (Bld) [#/Vol] 10*3/uL 22:15050 [facility] () Lymphocytes/100 21.4 % (no code) 20 - 40 % 04-05-2018 Hospit al WBC (Bld) 22:150500 [facility] (34869) MCH (RBC) 32.9 pg (H) 27 - 31 pg 04-05-2018 Hospital [Entitic mass] 22:050 [facility] () MCV (RBC) 97.7 fL (H) 80 - 100 fL 04-05-2018 Hospital [Entitic vol] 22:15050 [facility] ([id number]) Monocytes (Bld) 1.3 10*3/uL (H) 0.3 - 0.9 04-05-2018 Hosp ital [#/Vol] 10*3/uL 22:150500 [facility] ([id number]) Monocytes/100 10.0 % (no code) 2 - 8 % 04-05-2018 Hospital WBC (Bld) 22:150500 [facility] ([id number]) Neutrophils 8.48 10*3/uL (H) 1.7 - 7 10*3/uL 04-05-2018 H ospital (Bld) [#/Vol] 22:150500 [facility] ([id number]) Neutrophils/100 66.4 % (no code) 40 - 60 % 04-05-2018 Hospit al WBC (Bld) 22:15-0500 [facility] ([id number]) Platelets (Bld) 298 10*3/uL (no code) 150 - 450 04-05-2018 Hosp ital [#/Vol] 10*3/uL 22:15-0500 [facility] ([id number]) RBC (Bld) 3.53 10*6/uL (L) 4.2 - 6.1 04-05-2018 Hospital [#/Vol] 10*6/uL 22:15-0500 [facility] ([id number]) WBC (Bld) 12.78 10*3/uL (H) 3.5 - 10.5 04-05-2018 Hospita l [#/Vol] 10*3/uL 22:15-0500 [facility] ([id number]) blood gas on 2018-04-05 Oxygen 99 % (no code) 94 - 100 % 04-05-2018 [facility] saturation in 10:25-0500 ([id number]) Blood blood gas on 2018-04-04 Oxygen 99 % (no code) 94 - 100 % 04-04-2018 [facility] saturation in 09:55-0500 ([id number]) Blood blood gas on 2018-04-03 Oxygen 98 % (no code) 94 - 100 % 04-03-2018 [facility] saturation in 11:20-0500 ([id number]) Blood other on 2018-04-02 no information Chart note added (no code) [facility] ([id number]) blood gas on 2018-04-02 Oxygen 96 % (no code) 94 - 100 % 04-02-2018 [facility] saturation in 11:23-0500 ([id number]) Blood other on 2018-03-31 no information Chart note added (no code) [facility] ([id number]) blood gas on 2018-03-31 Oxygen 99 % (no code) 94 - 100 % 03-31-2018 [facility] saturation in 10:13-0500 ([id number]) Blood other on 2018-03-30 no information Chart note added (no code) [facility] ([id number]) blood gas on 2018-03-30 Oxygen 94 % (no code) 94 - 100 % 03-30-2018 [facility] saturation in 13:56-0500 ([id number]) Blood other on 2018-03-29 no information Chart note added (no code) [facility] ([id number]) no information Chart note added (no code) [facility] ([id number]) blood gas on 2018-03-29 Oxygen 97 % (no code) 94 - 100 % 03-29-2018 [facility] saturation in 14:39-0500 ([id number]) Blood blood gas on 2018-03-27 Oxygen 97 % (no code) 94 - 100 % 03-27-2018 [facility] saturation in 10:22-0500 ([id number]) Blood other on 2018-03-26 no information Chart note added (no code) [facility] ([id number]) blood gas on 2018-03-26 Oxygen 84 % (LL) 94 - 100 % 03-26-2018 [facility] saturation in 09:53-0500 ([id number]) Blood other on 2018-03-25 no information Chart note added (no code) [facility] ([id number]) blood gas on 2018-03-25 Oxygen 97 % (no code) 94 - 100 % 03-25-2018 [facility] saturation in 10:35-0500 ([id number]) Blood other on 2018-03-24 no information Chart note added (no code) [facility] ([id number]) blood gas on 2018-03-24 Oxygen 96 % (no code) 94 - 100 % 03-24-2018 [facility] saturation in 17:18-0500 ([id number]) Blood other on 2018-03-22 no information Chart note added (no code) [facility] ([id number]) blood gas on 2018-03-20 Oxygen 95 % (no code) 94 - 100 % 03-20-2018 [facility] saturation in 09:42-0500 ([id number]) Blood other on 2018-03-19 no information Chart note added (no code) [facility] ([id number]) no information Chart note added (no code) [facility] ([id number]) blood gas on 2018-03-19 Oxygen 98 % (no code) 94 - 100 % 03-19-2018 [facility] saturation in 09:45-0500 ([id number]) Blood other on 2018-03-18 no information Chart note added (no code) [facility] ([id number]) no information Chart note added (no code) [facility] ([id number]) other on 2018-03-17 no information Chart note added (no code) [facility] ([id number]) blood gas on 2018-03-16 Oxygen 98 % (no code) 94 - 100 % 03-16-2018 [facility] saturation in 10:00-0500 ([id number]) Blood other on 2018-03-15 no information Chart note added (no code) [facility] ([id number]) no information Chart note added (no code) [facility] ([id number]) blood gas on 2018-03-14 Oxygen 98 % (no code) 94 - 100 % 03-14-2018 [facility] saturation in 09:11-0500 ([id number]) Blood blood gas on 2018-03-13 Oxygen 98 % (no code) 94 - 100 % 03-13-2018 [facility] saturation in 09:44-0500 ([id number]) Blood other on 2018-03-12 no information Chart note added (no code) [facility] ([id number]) no information Chart note added (no code) [facility] ([id number]) blood gas on 2018-03-12 Oxygen 98 % (no code) 94 - 100 % 03-12-2018 [facility] saturation in 08:23-0500 ([id number]) Blood Oxygen 98 % (no code) 94 - 100 % 03-12-2018 [facility] saturation in 12:48-0500 ([id number]) Blood other on 2018-03-11 no information Chart note added (no code) [facility] ([id number]) blood gas on 2018-03-11 Oxygen 98 % (no code) 94 - 100 % 03-11-2018 [facility] saturation in 09:21-0500 ([id number]) Blood other on 2018-03-10 no information Chart note added (no code) [facility] ([id number]) no information Chart note added (no code) [facility] ([id number]) blood gas on 2018-03-10 Oxygen 98 % (no code) 94 - 100 % 03-10-2018 [facility] saturation in 09:33-0500 ([id number]) Blood Oxygen 98 % (no code) 94 - 100 % 03-10-2018 [facility] saturation in 11:24-0500 ([id number]) Blood other on 2018-03-09 no information Chart note added (no code) [facility] ([id number]) blood gas on 2018-03-09 Oxygen 99 % (no code) 94 - 100 % 03-09-2018 [facility] saturation in 14:19-0500 ([id number]) Blood other on 2018-03-08 no information Chart note added (no code) [facility] ([id number]) no information Chart note added (no code) [facility] ([id number]) blood gas on 2018-03-08 Oxygen 97 % (no code) 94 - 100 % 03-08-2018 [facility] saturation in 09:01-0500 ([id number]) Blood Oxygen 97 % (no code) 94 - 100 % 03-08-2018 [facility] saturation in 13:45-0500 ([id number]) Blood blood gas on 2018-03-07 Oxygen 98 % (no code) 94 - 100 % 03-07-2018 [facility] saturation in 08:53-0500 ([id number]) Blood blood gas on 2018-03-06 Oxygen 99 % (no code) 94 - 100 % 03-06-2018 [facility] saturation in 09:51-0500 ([id number]) Blood Oxygen 99 % (no code) 94 - 100 % 03-06-2018 [facility] saturation in 13:02-0500 ([id number]) Blood other on 2018-03-05 no information Chart note added (no code) [facility] ([id number]) no information Chart note added (no code) [facility] ([id number]) blood gas on 2018-03-05 Oxygen 99 % (no code) 94 - 100 % 03-05-2018 [facility] saturation in 13:02-0500 ([id number]) Blood other on 2018-03-04 no information Chart note added (no code) [facility] ([id number]) blood gas on 2018-03-04 Oxygen 98 % (no code) 94 - 100 % 03-04-2018 [facility] saturation in 08:32-0500 ([id number]) Blood other on 2018-03-03 no information Chart note added (no code) [facility] ([id number]) no information Chart note added (no code) [facility] ([id number]) blood gas on 2018-03-03 Oxygen 98 % (no code) 94 - 100 % 03-03-2018 [facility] saturation in 08:55-0500 ([id number]) Blood Oxygen 98 % (no code) 94 - 100 % 03-03-2018 [facility] saturation in 12:29-0500 ([id number]) Blood other on 2018-03-02 no information Chart note added (no code) [facility] ([id number]) no information Chart note added (no code) [facility] ([id number]) blood gas on 2018-03-02 Oxygen 98 % (no code) 94 - 100 % 03-02-2018 [facility] saturation in 08:47-0500 ([id number]) Blood Oxygen 98 % (no code) 94 - 100 % 03-02-2018 [facility] saturation in 13:14-0500 ([id number]) Blood other on 2018-03-01 no information Chart note added (no code) [facility] ([id number]) blood gas on 2018-03-01 Oxygen 98 % (no code) 94 - 100 % 03-01-2018 [facility] saturation in 11:24-0500 ([id number]) Blood blood gas on 2018-02-27 Oxygen 95 % (no code) 94 - 100 % 02-27-2018 [facility] saturation in 09:13-0500 ([id number]) Blood Oxygen 98 % (no code) 94 - 100 % 02-27-2018 [facility] saturation in 11:39-0500 ([id number]) Blood other on 2018-02-26 no information Chart note added (no code) [facility] ([id number]) no information Chart note added (no code) [facility] ([id number]) blood gas on 2018-02-26 Oxygen 97 % (no code) 94 - 100 % 02-26-2018 [facility] saturation in 10:25-0500 ([id number]) Blood other on 2018-02-25 no information Chart note added (no code) [facility] ([id number]) no information Chart note added (no code) [facility] ([id number]) blood gas on 2018-02-25 Oxygen 99 % (no code) 94 - 100 % 02-25-2018 [facility] saturation in 09:50-0500 ([id number]) Blood Oxygen 99 % (no code) 94 - 100 % 02-25-2018 [facility] saturation in 12:50-0500 ([id number]) Blood other on 2018-02-24 no information Chart note added (no code) [facility] ([id number]) blood gas on 2018-02-24 Oxygen 99 % (no code) 94 - 100 % 02-24-2018 [facility] saturation in 09:06-0500 ([id number]) Blood other on 2018-02-23 no information Chart note added (no code) [facility] ([id number]) no information Chart note added (no code) [facility] ([id number]) no information Chart note added (no code) [facility] ([id number]) blood gas on 2018-02-23 Oxygen 98 % (no code) 94 - 100 % 02-23-2018 [facility] saturation in 10:06-0500 ([id number]) Blood other on 2018-02-22 no information Chart note added (no code) [facility] ([id number]) blood gas on 2018-02-22 Oxygen 99 % (no code) 94 - 100 % 02-22-2018 [facility] saturation in 09:38-0500 ([id number]) Blood blood gas on 2018-02-20 Oxygen 98 % (no code) 94 - 100 % 02-20-2018 [facility] saturation in 09:39-0500 ([id number]) Blood other on 2018-02-19 no information Chart note added (no code) [facility] ([id number]) blood gas on 2018-02-19 Oxygen 99 % (no code) 94 - 100 % 02-19-2018 [facility] saturation in 09:50-0500 ([id number]) Blood other on 2018-02-18 no information Chart note added (no code) [facility] ([id number]) no information Chart note added (no code) [facility] ([id number]) blood gas on 2018-02-17 Oxygen 98 % (no code) 94 - 100 % 02-17-2018 [facility] saturation in 08:35-0500 ([id number]) Blood Oxygen 98 % (no code) 94 - 100 % 02-17-2018 [facility] saturation in 14:48-0500 ([id number]) Blood other on 2018-02-16 no information Chart note added (no code) [facility] ([id number]) no information Chart note added (no code) [facility] ([id number]) blood gas on 2018-02-16 Oxygen 99 % (no code) 94 - 100 % 02-16-2018 [facility] saturation in 09:50-0500 ([id number]) Blood Oxygen 99 % (no code) 94 - 100 % 02-16-2018 [facility] saturation in 14:52-0500 ([id number]) Blood other on 2018-02-15 no information Chart note added (no code) [facility] ([id number]) no information Chart note added (no code) [facility] ([id number]) blood gas on 2018-02-15 Oxygen 99 % (no code) 94 - 100 % 02-15-2018 [facility] saturation in 14:17-0500 ([id number]) Blood blood gas on 2018-02-14 Oxygen 98 % (no code) 94 - 100 % 02-14-2018 [facility] saturation in 08:55-0500 ([id number]) Blood other on 2018-02-12 no information Chart note added (no code) [facility] ([id number]) blood gas on 2018-02-12 Oxygen 98 % (no code) 94 - 100 % 02-12-2018 [facility] saturation in 09:36-0500 ([id number]) Blood Oxygen 98 % (no code) 94 - 100 % 02-12-2018 [facility] saturation in 14:09-0500 ([id number]) Blood blood gas on 2018-02-11 Oxygen 100 % (no code) 94 - 100 % 02-11-2018 [facility] saturation in 20:32-0500 ([id number]) Blood other on 2018-02-10 no information Chart note added (no code) [facility] ([id number]) blood gas on 2018-02-10 Oxygen 98 % (no code) 94 - 100 % 02-10-2018 [facility] saturation in 09:29-0500 ([id number]) Blood Oxygen 99 % (no code) 94 - 100 % 02-10-2018 [facility] saturation in 14:35-0500 ([id number]) Blood other on 2018-02-09 Body weight 116 (no code) 02-09-2018 [facility] 14:42-0500 ([id number]) no information Chart note added (no code) [facility] ([id number]) blood gas on 2018-02-09 Oxygen 99 % (no code) 94 - 100 % 02-09-2018 [facility] saturation in 14:42-0500 ([id number]) Blood other on 2018-02-08 Body weight 117 (no code) 02-08-2018 [facility] 14:04-0500 ([id number]) no information Chart note added (no code) [facility] ([id number]) blood gas on 2018-02-08 Oxygen 100 % (no code) 94 - 100 % 02-08-2018 [facility] saturation in 08:15-0500 ([id number]) Blood Oxygen 99 % (no code) 94 - 100 % 02-08-2018 [facility] saturation in 14:04-0500 ([id number]) Blood blood gas on 2018-02-07 Oxygen 99 % (no code) 94 - 100 % 02-07-2018 [facility] saturation in 08:36-0500 ([id number]) Blood other on 2018-02-05 Body weight 116 (no code) 02-05-2018 [facility] 14:44-0500 ([id number]) no information Chart note added (no code) [facility] ([id number]) no information Chart note added (no code) [facility] ([id number]) blood gas on 2018-02-05 Oxygen 99 % (no code) 94 - 100 % 02-05-2018 [facility] saturation in 10:07-0500 ([id number]) Blood other on 2018-02-04 no information Chart note added (no code) [facility] ([id number]) blood gas on 2018-02-04 Oxygen 99 % (no code) 94 - 100 % 02-04-2018 [facility] saturation in 09:29-0500 ([id number]) Blood other on 2018-02-03 Body weight 115 (no code) 02-03-2018 [facility] 14:15-0500 ([id number]) no information Chart note added (no code) [facility] ([id number]) blood gas on 2018-02-03 Oxygen 98 % (no code) 94 - 100 % 02-03-2018 [facility] saturation in 09:48-0500 ([id number]) Blood Oxygen 98 % (no code) 94 - 100 % 02-03-2018 [facility] saturation in 14:15-0500 ([id number]) Blood other on 2018-02-02 Body weight 114.5 (L) 02-02-2018 [facility] 14:19-0500 ([id number]) no information Chart note added (no code) [facility] ([id number]) no information Chart note added (no code) [facility] ([id number]) blood gas on 2018-02-02 Oxygen 99 % (no code) 94 - 100 % 02-02-2018 [facility] saturation in 09:46-0500 ([id number]) Blood Oxygen 99 % (no code) 94 - 100 % 02-02-2018 [facility] saturation in 14:19-0500 ([id number]) Blood other on 2018-02-01 Body weight 118 (no code) 02-01-2018 [facility] 12:11-0500 ([id number]) no information Chart note added (no code) [facility] ([id number]) no information Chart note added (no code) [facility] ([id number]) blood gas on 2018-02-01 Oxygen 96 % (no code) 94 - 100 % 02-01-2018 [facility] saturation in 12:11-0500 ([id number]) Blood blood gas on 2018-01-31 Oxygen 98 % (no code) 94 - 100 % 01-31-2018 [facility] saturation in 08:22-0500 ([id number]) Blood other on 2018-01-30 Body weight 123 (no code) 01-30-2018 [facility] 11:41-0500 ([id number]) blood gas on 2018-01-30 Oxygen 95 % (no code) 94 - 100 % 01-30-2018 [facility] saturation in 10:48-0500 ([id number]) Blood other on 2018-01-29 no information Chart note added (no code) [facility] ([id number]) no information Chart note added (no code) [facility] ([id number]) blood gas on 2018-01-29 Oxygen 98 % (no code) 94 - 100 % 01-29-2018 [facility] saturation in 10:24-0500 ([id number]) Blood other on 2018-01-28 no information Chart note added (no code) [facility] ([id number]) no information Chart note added (no code) [facility] ([id number]) blood gas on 2018-01-28 Oxygen 98 % (no code) 94 - 100 % 01-28-2018 [facility] saturation in 08:42-0500 ([id number]) Blood other on 2018-01-27 Body weight 124 (no code) 01-27-2018 [facility] 16:30-0500 ([id number]) blood gas on 2018-01-27 Oxygen 97 % (no code) 94 - 100 % 01-27-2018 [facility] saturation in 10:16-0500 ([id number]) Blood other on 2018-01-26 Body weight 123 (no code) 01-26-2018 [facility] 14:15-0500 ([id number]) no information Chart note added (no code) [facility] ([id number]) no information Chart note added (no code) [facility] ([id number]) blood gas on 2018-01-26 Oxygen 98 % (no code) 94 - 100 % 01-26-2018 [facility] saturation in 09:56-0500 ([id number]) Blood Oxygen 98 % (no code) 94 - 100 % 01-26-2018 [facility] saturation in 14:14-0500 ([id number]) Blood other on 2018-01-25 Body weight 116 (no code) 01-25-2018 [facility] 08:30-0500 ([id number]) Body weight 121 (no code) 01-25-2018 [facility] 13:02-0500 ([id number]) no information Chart note added (no code) [facility] ([id number]) no information Chart note added (no code) [facility] ([id number]) blood gas on 2018-01-25 Oxygen 99 % (no code) 94 - 100 % 01-25-2018 [facility] saturation in 08:59-0500 ([id number]) Blood Oxygen 99 % (no code) 94 - 100 % 01-25-2018 [facility] saturation in 13:01-0500 ([id number]) Blood blood gas on 2018-01-24 Oxygen 97 % (no code) 94 - 100 % 01-24-2018 [facility] saturation in 08:28-0500 ([id number]) Blood blood gas on 2018-01-23 Oxygen 97 % (no code) 94 - 100 % 01-23-2018 [facility] saturation in 09:34-0400 ([id number]) Blood other on 2018-01-22 Body weight 124 (no code) 01-22-2018 [facility] 17:17-0400 ([id number]) no information Chart note added (no code) [facility] ([id number]) blood gas on 2018-01-22 Oxygen 98 % (no code) 94 - 100 % 01-22-2018 [facility] saturation in 10:11-0400 ([id number]) Blood other on 2018-01-21 no information Chart note added (no code) [facility] ([id number]) no information Chart note added (no code) [facility] ([id number]) blood gas on 2018-01-21 Oxygen 97 % (no code) 94 - 100 % 01-21-2018 [facility] saturation in 11:06-0400 ([id number]) Blood other on 2018-01-20 no information Chart note added (no code) [facility] ([id number]) no information Chart note added (no code) [facility] ([id number]) blood gas on 2018-01-20 Oxygen 98 % (no code) 94 - 100 % 01-20-2018 [facility] saturation in 09:37-0400 ([id number]) Blood other on 2018-01-19 Body weight 117.5 (no code) 01-19-2018 [facility] 14:28-0400 ([id number]) no information Chart note added (no code) [facility] ([id number]) blood gas on 2018-01-19 Oxygen 97 % (no code) 94 - 100 % 01-19-2018 [facility] saturation in 14:28-0400 ([id number]) Blood other on 2018-01-14 no information Chart note added (no code) [facility] ([id number]) no information Chart note added (no code) [facility] ([id number]) other on 2018-01-13 Body weight 124.3 (no code) 01-13-2018 [facility] 15:50-0400 ([id number]) no information Chart note added (no code) [facility] ([id number]) no information Chart note added (no code) [facility] ([id number]) blood gas on 2018-01-13 Oxygen 98 % (no code) 94 - 100 % 01-13-2018 [facility] saturation in 15:50-0400 ([id number]) Blood other on 2018-01-12 Body weight 124 (no code) 01-12-2018 [facility] 14:08-0400 ([id number]) no information Chart note added (no code) [facility] ([id number]) blood gas on 2018-01-12 Oxygen 98 % (no code) 94 - 100 % 01-12-2018 [facility] saturation in 09:03-0400 ([id number]) Blood Oxygen 98 % (no code) 94 - 100 % 01-12-2018 [facility] saturation in 14:08-0400 ([id number]) Blood other on 2018-01-11 no information Chart note added (no code) [facility] ([id number]) blood gas on 2018-01-11 Oxygen 98 % (no code) 94 - 100 % 01-11-2018 [facility] saturation in 10:24-0400 ([id number]) Blood blood gas on 2018-01-10 Oxygen 98 % (no code) 94 - 100 % 01-10-2018 [facility] saturation in 09:16-0400 ([id number]) Blood blood gas on 2018-01-09 Oxygen 97 % (no code) 94 - 100 % 01-09-2018 [facility] saturation in 09:43-0400 ([id number]) Blood other on 2018-01-08 Body weight 121 (no code) 01-08-2018 [facility] 17:05-0400 ([id number]) no information Chart note added (no code) [facility] ([id number]) blood gas on 2018-01-08 Oxygen 98 % (no code) 94 - 100 % 01-08-2018 [facility] saturation in 09:25-0400 ([id number]) Blood Oxygen 98 % (no code) 94 - 100 % 01-08-2018 [facility] saturation in 17:05-0400 ([id number]) Blood other on 2018-01-06 Body weight 116.4 (no code) 01-06-2018 [facility] 09:38-0400 ([id number]) Body weight 124 (no code) 01-06-2018 [facility] 13:30-0400 ([id number]) no information Chart note added (no code) [facility] ([id number]) no information Chart note added (no code) [facility] ([id number]) blood gas on 2018-01-06 Oxygen 97 % (no code) 94 - 100 % 01-06-2018 [facility] saturation in 09:04-0400 ([id number]) Blood Oxygen 97 % (no code) 94 - 100 % 01-06-2018 [facility] saturation in 13:30-0400 ([id number]) Blood other on 2018-01-05 no information Chart note added (no code) [facility] ([id number]) blood gas on 2018-01-05 Oxygen 97 % (no code) 94 - 100 % 01-05-2018 [facility] saturation in 09:50-0400 ([id number]) Blood other on 2018-01-04 no information Chart note added (no code) [facility] ([id number]) blood gas on 2018-01-04 Oxygen 98 % (no code) 94 - 100 % 01-04-2018 [facility] saturation in 10:16-0400 ([id number]) Blood other on 2017-12-29 Body weight 123 (no code) 12-29-2017 [facility] 12:110400 ([id number]) no information Chart note added (no code) [facility] ([id number]) blood gas on 2017-12-29 Oxygen 98 % (no code) 94 - 100 % 12-29-2017 [facility] saturation in 12: ([id number]) Blood other on 2017-12-28 no information Chart note added (no code) [facility] ([id number]) urinalysis on 2017-11-12 Bacteria LM.HPF Trace (A) 11-12-2017 Hospital #/area (Urine 13: [facility] ([id number]) Bilirubin Ql (U) Negative (no code) 11-12-2017 Hospital 13: [facility] ([id number]) Clarity Nom (U) Clear (no code) 11-12-2017 Hospital 13: [facility] ([id number]) Color Nom (U) Yellow (no code) 11-12-2017 Hospital 13: [facility] ([id number]) Epithelial 0-5/HPF (A) 11-12-2017 Hospital cells.squamous : [facility] LM.HPF #/area [facility] (Urine sed) ([id number]) Hemoglobin Test Negative (no code) 11-12-2017 Hospital strip Ql (U) 13: [facility] ([id number]) Leukocyte Negative (no code) 11-12-2017 Hospital esterase Test : [facility] strip Ql (U) [facility] ([id number]) Nitrite Test Positive (A) 11-12-2017 Hospital strip Ql (U) 13: [facility] ([id number]) pH Test strip 7.0 [pH] (no code) 4.6 - 8 [pH] 11-12-2017 Hospi lalo (U) 13: [facility] ([id number]) Protein mass Negative (no code) 0 - 20 mg/dL 11-12-2017 Hospit al conc (U) 13: [facility] ([id number]) RBC LM.HPF Negative (no code) 0 - 4 /[HPF] 11-12-2017 Hospital #/area (Urine 13: [facility] ([id number]) Specific gravity 1.015 (no code) 11-12-2017 Hospital Relative Density 13:0400 [facility] (U) [facility] ([id number]) Urobilinogen 0.2 (A) 0.2 - 1 11-12-2017 Hospital Test strip Qn {Karla'U}/dL {Karla'U}/dL 13: [facility] (U) [facility] ([id number]) WBC LM.HPF 0-2/HPF (A) 11-12-2017 Hospital #/area (Urine 13: [facility] ([id number]) other on 2017-11-12 Glucose. Negative (no code) 11-12-2017 Hospital 13: [facility] ([id number]) Icto N/A (A) 11-12-2017 Hospital 13: [facility] ([id number]) Ketones mass Negative (no code) 11-12-2017 Hospital conc (U) 13: [facility] ([id number]) Urine Volume Urine Volume (no code) 11-12-2017 Hospital Sufficient 13:040 [facility] (10mL) [facility] ([id number]) imm/path on 2017-02-02 Surgical Sent to [place] (no code) 02-02-2017 Not Availa ble pathology study Pathology 11: ([id number]) urinalysis on 2017-01-26 Bilirubin Ql (U) 0.3 (no code) 01-26-2017 Not Avail able 14: ([id number]) other on 2017-01-26 EKG Complete (no code) 01-26-2017 no information 14: Erythrocyte 11.4 % (L) 11.6 - 14.6 % 01-26-2017 Not Av ailable distribution 15: (95712) width (RBC) [Ratio] Globulin 2.4 g/dL (no code) 2 - 3.5 g/dL 01-26-2017 Not Avail able Calculated mass 14: (26694) conc (S) MCHC (RBC) 32.8 g/dL (no code) 32 - 36 g/dL 01-26-2017 Not Avai lable [Mass/Vol] 15: (24273) Platelet mean 11.2 fL (H) 7.2 - 11.7 fL 01-26-2017 Not Available volume (Bld) 15: ([id number]) [Entitic vol] metabolic panel on 2017-01-26 Albumin mass 4.0 g/dL (no code) 3.4 - 5.4 g/dL 01-26-2017 Not Available conc 14: ([id number]) ALP enzyme 57 U/L (no code) 44 - 147 U/L 01-26-2017 Not Avai lable act/vol 14: (90636) ALT enzyme 9 U/L (no code) 4 - 40 U/L 01-26-2017 Not Availa ble act/vol 14: (57157) Anion gap 3 15 mmol/L (H) 3 - 11 mmol/L 01-26-2017 Not Av ailable molar conc 14: (17293) AST enzyme 17 U/L (no code) 10 - 34 U/L 01-26-2017 Not Avail able act/vol 14: (45049) Calcium mass 9.8 mg/dL (no code) 8.5 - 10.2 mg/dL 01-26-2017 No t Available conc 14: (83188) Chloride molar 105 mmol/L (no code) 95 - 106 mmol/L 01-26-2017 Not Available conc 14: (44166) CO2 molar conc 22 mmol/L (no code) 23 - 29 mmol/L 01-26-2017 No t Available 14: ([id number]) Creatinine mass 0.90 mg/dL (no code) 01-26-2017 Not Availa ble conc 14: (20485) GFR/1.73 sq M 60 (no code) 90 - 120 01-26-2017 Not Avai lable predicted among mL/min/{1.73_m2} mL/min/{1.73_m2} 14: (58920) non-blacks MDRD vol rate/area (S/P/Bld) Glucose mass 105 mg/dL (no code) 60 - 125 mg/dL 01-26-2017 Not Available conc 14: (32982) Osmolality 285 mosm/kg (no code) 275 - 295 01-26-2017 Not Avail able mosm/kg 14: (53701) Potassium molar 5.1 mmol/L (no code) 3.7 - 5.2 mmol/L 01-26-2017 Not Available conc 14: (41736) Protein mass 6.4 g/dL (no code) 6.4 - 8.3 g/dL 01-26-2017 Not Available conc 14: (50727) Sodium molar 137 mmol/L (no code) 135 - 145 mmol/L 01-26-2017 N ot Available conc 14: (02438) Urea nitrogen 16 mg/dL (no code) 7 - 20 mg/dL 01-26-2017 Not A vailable mass conc 14: (16174) hematology on 2017-01-26 Basophils (Bld) 0.0 10*3/uL (no code) 0 - 0.3 10*3/uL 01-26-2017 Not Available [#/Vol] 15: (07139) Basophils/100 0.20 % (no code) 0.5 - 1 % 01-26-2017 Not Avai lable WBC (Bld) 15: (37516) Eosinophils 0.3 10*3/uL (no code) 0.05 - 0.5 01-26-2017 Not Preethi ilable (Bld) [#/Vol] 10*3/uL 15: ([id number]) Eosinophils/100 2.3 % (no code) 1 - 4 % 01-26-2017 Not Av ailable WBC (Bld) 15: (59447) Hematocrit (Bld) 32.0 % (L) 36.1 - 50.3 % 01-26-2017 N ot Available [Volume 15: () fraction] Hemoglobin (Bld) 10.5 g/dL (L) 12.1 - 17.2 g/dL 01-26-2017 Not Available [Mass/Vol] 15:0500 ([id number]) Lymphocytes 2.47 10*3/uL (no code) 0.9 - 2.9 01-26-2017 Not Preethi ilable (Bld) [#/Vol] 10*3/uL 15:0500 ([id number]) Lymphocytes/100 20.4 % (no code) 20 - 40 % 01-26-2017 Not Av ailable WBC (Bld) 15:0500 ([id number]) MCH (RBC) 33.9 pg (H) 27 - 31 pg 01-26-2017 Not Availab le [Entitic mass] 15:0500 ([id number]) MCV (RBC) 103.2 fL (H) 80 - 100 fL 01-26-2017 Not Availa ble [Entitic vol] 15:0500 ([id number]) Monocytes (Bld) 0.9 10*3/uL (no code) 0.3 - 0.9 01-26-2017 Not Available [#/Vol] 10*3/uL 15:0500 ([id number]) Monocytes/100 7.7 % (no code) 2 - 8 % 01-26-2017 Not Avai lable WBC (Bld) 15:0500 ([id number]) Neutrophils 8.39 10*3/uL (H) 1.7 - 7 10*3/uL 01-26-2017 N ot Available (Bld) [#/Vol] 15:0500 ([id number]) Neutrophils/100 69.4 % (no code) 40 - 60 % 01-26-2017 Not Av ailable WBC (Bld) 15:0500 (50715) Platelets (Bld) 251 10*3/uL (no code) 150 - 450 01-26-2017 Not Available [#/Vol] 10*3/uL 15:0500 ([id number]) RBC (Bld) 3.10 10*6/uL (L) 4.2 - 6.1 01-26-2017 Not Avail able [#/Vol] 10*6/uL 15:11-0500 ([id number]) WBC (Bld) 12.09 10*3/uL (H) 3.5 - 10.5 01-26-2017 Not Preethi ilable [#/Vol] 10*3/uL 15:0 (06013) other on 2016-12-01 Cholesterol in 14 mg/dL (no code) 12-01-2016 Not Availab le VLDL [Mass/Vol] 09:0 (18804) Cholesterol.tota 3.1 {ratio} (L) 12-01-2016 Not Avail able l/Cholesterol in 09:0 (57641) HDL [Mass ratio] cardiac on 2016-12-01 Cholesterol 181 mg/dL (no code) 180 - 200 mg/dL 12-01-2016 Not Available [Mass/Vol] 09:0400 ([id number]) Cholesterol in 59 mg/dL (no code) 12-01-2016 Not Availab le HDL [Mass/Vol] 09:0400 ([id number]) Cholesterol in 108 mg/dL (H) 0 - 100 mg/dL 12-01-2016 Not Available LDL [Mass/Vol] 09:0400 (70567) Triglyceride 68 mg/dL (no code) 0 - 150 mg/dL 12-01-2016 Not A vailable [Mass/Vol] 09:0 (35126) thyroid on 2016-10-10 TSH Qn 2.19 (no code) 10-10-2016 Not Available 15:0 ([id number]) other on 2016-10-10 Albumin BCG dye 3.9 (no code) 10-10-2016 Not Availa ble [Mass/Vol] 15:0400 ([id number]) CULTURE SOURCE void (no code) 10-10-2016 Not Availab le 15:0400 (50606) Erythrocyte 11.0 % (L) 11.6 - 14.6 % 10-10-2016 Not Av ailable distribution 15:0400 (81908) width (RBC) [Ratio] FINAL CULTURE <10,000 Gram (no code) 10-10-2016 Not Availab le RESULTS Positive Mixed 15:0400 (71312) Bridget Probable Skin Contaminant No Further Workup done GFR/1.73 sq 69 (no code) 90 - 120 10-10-2016 Not Availa ble M.predicted MDRD mL/min/{1.73_m2} mL/min/{1.73_m2} 15:280400 (59367) (S/P/Bld) [Vol rate/Area] Globulin (S) 2.6 g/dL (no code) 2 - 3.5 g/dL 10-10-2016 Not Av ailable [Mass/Vol] 15: (85447) HCO3 (P) 21 (L) 10-10-2016 Not Available [Moles/Vol] 15: (43586) MCHC (RBC) 32.8 g/dL (no code) 32 - 36 g/dL 10-10-2016 Not Avai lable [Mass/Vol] 15: (89037) MEDIA PLATED Setup at 14:46 (no code) 10-10-2016 Not Availa ble on 10/10/2016 15: (61973) Osmolality Calc 281 (no code) 10-10-2016 Not Availa ble [Osmolality] 15: (51259) Platelet mean 11.1 fL (H) 7.2 - 11.7 fL 10-10-2016 Not Available volume (Bld) 15: (12134) [Entitic vol] PRELIM CULTURE Positive (no code) 10-10-2016 Not Availab le RESULTS 15: (58781) metabolic panel on 2016-10-10 ALP [Catalytic 54 U/L (no code) 44 - 147 U/L 10-10-2016 Not Available activity/Vol] 15: (94087) ALT [Catalytic 8 U/L (no code) 4 - 40 U/L 10-10-2016 Not Av ailable activity/Vol] 15: (02878) Anion gap 17 mmol/L (H) 3 - 11 mmol/L 10-10-2016 Not Avai lable [Moles/Vol] 15: (66973) AST [Catalytic 19 U/L (no code) 10 - 34 U/L 10-10-2016 Not A vailable activity/Vol] 15: (76407) Bilirubin 0.4 mg/dL (no code) 0.1 - 1.2 mg/dL 10-10-2016 Not Av ailable [Mass/Vol] 15: (19684) Calcium 9.7 mg/dL (no code) 8.5 - 10.2 mg/dL 10-10-2016 Not A vailable [Mass/Vol] 15: (35051) Chloride 103 mmol/L (no code) 95 - 106 mmol/L 10-10-2016 Not A vailable [Moles/Vol] 15: (10030) Creatinine 0.80 mg/dL (no code) 10-10-2016 Not Available [Mass/Vol] 15: (56841) Glucose 100 mg/dL (no code) 60 - 125 mg/dL 10-10-2016 Not Preethi ilable [Mass/Vol] 15: (47272) Potassium 4.8 mmol/L (no code) 3.7 - 5.2 mmol/L 10-10-2016 Not Available [Moles/Vol] 15: () Protein 6.5 g/dL (no code) 6.4 - 8.3 g/dL 10-10-2016 Not Preethi ilable [Mass/Vol] 15: (43409) Sodium 136 mmol/L (no code) 135 - 145 mmol/L 10-10-2016 Not Available [Moles/Vol] 15: (64139) Urea nitrogen 12 mg/dL (no code) 7 - 20 mg/dL 10-10-2016 Not A vailable [Mass/Vol] 15: (18742) hematology on 2016-10-10 Basophils (Bld) 0.0 10*3/uL (no code) 0 - 0.3 10*3/uL 10-10-2016 Not Available [#/Vol] 15: (16348) Basophils/100 0.30 % (no code) 0.5 - 1 % 10-10-2016 Not Avai lable WBC (Bld) 15: (72956) Eosinophils 0.2 10*3/uL (no code) 0.05 - 0.5 10-10-2016 Not Preethi ilable (Bld) [#/Vol] 10*3/uL 15: (51260) Eosinophils/100 1.5 % (no code) 1 - 4 % 10-10-2016 Not Av ailable WBC (Bld) 15: (73875) Hematocrit (Bld) 34.5 % (L) 36.1 - 50.3 % 10-10-2016 N ot Available [Volume 15: () fraction] Hemoglobin (Bld) 11.3 g/dL (L) 12.1 - 17.2 g/dL 10-10-2016 Not Available [Mass/Vol] 15: () Lymphocytes 2.17 10*3/uL (no code) 0.9 - 2.9 10-10-2016 Not Preethi ilable (Bld) [#/Vol] 10*3/uL 15: (67182) Lymphocytes/100 20.1 % (no code) 20 - 40 % 10-10-2016 Not Av ailable WBC (Bld) 15: (25353) MCH (RBC) 32.9 pg (H) 27 - 31 pg 10-10-2016 Not Availab le [Entitic mass] 15: () MCV (RBC) 100.6 fL (H) 80 - 100 fL 10-10-2016 Not Availa ble [Entitic vol] 15: (11356) Monocytes (Bld) 0.9 10*3/uL (no code) 0.3 - 0.9 10-10-2016 Not Available [#/Vol] 10*3/uL 15: (06877) Monocytes/100 8.1 % (no code) 2 - 8 % 10-10-2016 Not Avai lable WBC (Bld) 15: (70469) Neutrophils 7.54 10*3/uL (H) 1.7 - 7 10*3/uL 10-10-2016 N ot Available (Bld) [#/Vol] 15: (49102) Neutrophils/100 70.0 % (no code) 40 - 60 % 10-10-2016 Not Av ailable WBC (Bld) 15: (26127) Platelets (Bld) 297 10*3/uL (no code) 150 - 450 10-10-2016 Not Available [#/Vol] 10*3/uL 15: (55369) RBC (Bld) 3.43 10*6/uL (L) 4.2 - 6.1 10-10-2016 Not Avail able [#/Vol] 10*6/uL 15:0 (88507) WBC (Bld) 10.77 10*3/uL (H) 3.5 - 10.5 10-10-2016 Not Preethi ilable [#/Vol] 10*3/uL 15:0 (42744) other on 2016-04-15 Erythrocyte 12.7 % (no code) 11.6 - 14.6 % 04-15-2016 Not Av ailable distribution 10: (51865) width (RBC) [Ratio] GFR/1.73 sq 59 (L) 90 - 120 04-15-2016 Not Availa ble M.predicted MDRD mL/min/{1.73_m2} mL/min/{1.73_m2} 10: (88300) (S/P/Bld) [Vol rate/Area] HCO3 (P) 20 (L) 04-15-2016 Not Available [Moles/Vol] 10: (71345) Holter monitor 24 Hour Complete (no code) 04-15-2016 Not Av ailable study 10: (22184) MCHC (RBC) 32.4 g/dL (no code) 32 - 36 g/dL 04-15-2016 Not Avai lable [Mass/Vol] 10:0 (63622) Osmolality Calc 283 (no code) 04-15-2016 Not Availa ble [Osmolality] 10:0 (41430) Platelet mean 11.1 fL (H) 7.2 - 11.7 fL 04-15-2016 Not Available volume (Bld) 10:150500 (63452) [Entitic vol] metabolic panel on 2016-04-15 Anion gap 15 mmol/L (H) 3 - 11 mmol/L 04-15-2016 Not Avai lable [Moles/Vol] 10:150500 (10871) Calcium 9.3 mg/dL (no code) 8.5 - 10.2 mg/dL 04-15-2016 Not A vailable [Mass/Vol] 10:0500 (20720) Chloride 106 mmol/L (no code) 95 - 106 mmol/L 04-15-2016 Not A vailable [Moles/Vol] 10:0 (57174) Creatinine 0.92 mg/dL (no code) 04-15-2016 Not Available [Mass/Vol] 10:0 (86239) Glucose 70 mg/dL (no code) 60 - 125 mg/dL 04-15-2016 Not Preethi ilable [Mass/Vol] 10: (87216) Potassium 4.6 mmol/L (no code) 3.7 - 5.2 mmol/L 04-15-2016 Not Available [Moles/Vol] 10: (79470) Sodium 136 mmol/L (no code) 135 - 145 mmol/L 04-15-2016 Not Available [Moles/Vol] 10:0500 (35594) Urea nitrogen 21 mg/dL (no code) 7 - 20 mg/dL 04-15-2016 Not A vailable [Mass/Vol] 10:0 (07187) hematology on 2016-04-15 Basophils (Bld) 0.0 10*3/uL (no code) 0 - 0.3 10*3/uL 04-15-2016 Not Available [#/Vol] 10:150500 (60102) Basophils/100 0.30 % (no code) 0.5 - 1 % 04-15-2016 Not Avai lable WBC (Bld) 10:0500 (01322) Eosinophils 0.2 10*3/uL (no code) 0.05 - 0.5 04-15-2016 Not Preethi ilable (Bld) [#/Vol] 10*3/uL 10:0500 (66464) Eosinophils/100 2.3 % (no code) 1 - 4 % 04-15-2016 Not Av ailable WBC (Bld) 10:0500 (36816) Hematocrit (Bld) 29.9 % (L) 36.1 - 50.3 % 04-15-2016 N ot Available [Volume 10: (27336) fraction] Hemoglobin (Bld) 9.7 g/dL (L) 12.1 - 17.2 g/dL 04-15-2016 Not Available [Mass/Vol] 10:15-0500 (69184) Lymphocytes 1.90 10*3/uL (no code) 0.9 - 2.9 04-15-2016 Not Preethi ilable (Bld) [#/Vol] 10*3/uL 10:15-0500 (15959) Lymphocytes/100 19.2 % (no code) 20 - 40 % 04-15-2016 Not Av ailable WBC (Bld) 10:15-0500 (59214) MCH (RBC) 33.7 pg (H) 27 - 31 pg 04-15-2016 Not Availab le [Entitic mass] 10:15-0500 (58154) MCV (RBC) 103.8 fL (H) 80 - 100 fL 04-15-2016 Not Availa ble [Entitic vol] 10:15-0500 ([id number]) Monocytes (Bld) 0.9 10*3/uL (no code) 0.3 - 0.9 04-15-2016 Not Available [#/Vol] 10*3/uL 10:15-0500 (64278) Monocytes/100 9.0 % (no code) 2 - 8 % 04-15-2016 Not Avai lable WBC (Bld) 10:15-0500 (85958) Neutrophils 6.84 10*3/uL (no code) 1.7 - 7 10*3/uL 04-15-2016 N ot Available (Bld) [#/Vol] 10:15-0500 ([id number]) Neutrophils/100 69.2 % (no code) 40 - 60 % 04-15-2016 Not Av ailable WBC (Bld) 10:15-0500 (27568) Platelets (Bld) 271 10*3/uL (no code) 150 - 450 04-15-2016 Not Available [#/Vol] 10*3/uL 10:15-0500 (43971) RBC (Bld) 2.88 10*6/uL (L) 4.2 - 6.1 04-15-2016 Not Avail able [#/Vol] 10*6/uL 10:15-0500 (76741) WBC (Bld) 9.89 10*3/uL (no code) 3.5 - 10.5 04-15-2016 Not Avai lable [#/Vol] 10*3/uL 10:15-0500 (61550) Vital Signs Vital Sign Value Interpretation Reference Date Time Care [facility] (Normalized) (Normalized) Range Body weight 46.2672 kg (no code) kg 2019 no name [facility] 08:44-0400 ([id number]) Body weight 46.2672 kg (no code) kg 09-05-2019 no name [facility] 12:18-0400 ([id number]) Body weight 45.8136 kg (no code) kg 08-30-2019 no name [facility] 08:39-0400 ([id number]) Body weight 45.8136 kg (no code) kg 08-29-2019 no name [facility] 05:50-0400 ([id number]) Body weight 45.8136 kg (no code) kg 08-26-2019 no name [facility] 06:37-0400 ([id number]) Body weight 46.494 kg (no code) kg 08-25-2019 no name [facility] 10:13-0400 (59063) Body weight 47.4012 kg (H) kg 08-24-2019 no name [facility] 05:54-0400 ([id number]) Body weight 46.2672 kg (no code) kg 08-23-2019 no name [facility] 07:50-0400 ([id number]) Body weight 46.2672 kg (no code) kg 08-22-2019 no name [facility] 07:50-0400 ([id number]) Body weight 46.0404 kg (no code) kg 08-19-2019 no name [facility] 07:33-0400 ([id number]) Body weight 46.2672 kg (no code) kg 08-17-2019 no name [facility] 07:17-0400 ([id number]) Body weight 46.494 kg (no code) kg 08-16-2019 no name [facility] 10:14-0400 ([id number]) Body weight 46.2672 kg (no code) kg 08-09-2019 no name [facility] 10:34-0400 ([id number]) Body weight 46.0404 kg (no code) kg 08-08-2019 no name [facility] 09:07-0400 ([id number]) Body weight 48.0816 kg (no code) kg 08-05-2019 no name [facility] 07:39-0400 ([id number]) Body weight 48.0816 kg (no code) kg 08-02-2019 no name [facility] 08:29-0400 ([id number]) Body weight 47.4012 kg (no code) kg 07-27-2019 no name [facility] 06:21-0400 ([id number]) Body weight 48.5352 kg (no code) kg 07-25-2019 no name [facility] 09:54-0400 ([id number]) Body weight 48.5352 kg (no code) kg 07-23-2019 no name [facility] 08:55-0400 ([id number]) Body weight 47.628 kg (no code) kg 07-22-2019 no name [facility] 06:43-0400 ([id number]) Body weight 47.8548 kg (no code) kg 07-20-2019 no name [facility] 04:15-0400 ([id number]) Body weight 47.8548 kg (no code) kg 07-19-2019 no name [facility] 12:24-0400 ([id number]) Body weight 47.8548 kg (no code) kg 07-18-2019 no name [facility] 09:19-0400 ([id number]) Body weight 47.4012 kg (no code) kg 07-15-2019 no name [facility] 06:53-0400 ([id number]) Body weight 47.628 kg (no code) kg 07-14-2019 no name [facility] 05:33-0400 ([id number]) Body weight 48.3084 kg (no code) kg 07-13-2019 no name [facility] 06:37-0400 ([id number]) Body weight 48.0816 kg (no code) kg 07-12-2019 no name [facility] 07:44-0400 ([id number]) Body weight 48.0816 kg (no code) kg 07-11-2019 no name [facility] 09:16-0400 ([id number]) Body weight 47.628 kg (no code) kg 07-09-2019 no name [facility] 12:09-0400 ([id number]) Body weight 48.0816 kg (no code) kg 07-07-2019 no name [facility] 05:27-0400 ([id number]) Body weight 48.0816 kg (no code) kg 07-06-2019 no name [facility] 06:17-0400 ([id number]) Body weight 48.0816 kg (no code) kg 07-05-2019 no name [facility] 10:12-0400 ([id number]) Body weight 48.0816 kg (no code) kg 07-04-2019 no name [facility] 11:080400 ([id number]) Body weight 48.5352 kg (no code) kg 07-01-2019 no name [facility] 07:520400 ([id number]) Body weight 47.628 kg (no code) kg 06-30-2019 no name [facility] 09:53-0400 ([id number]) Body weight 48.0816 kg (no code) kg 06-29-2019 no name [facility] 06:050400 ([id number]) Body weight 48.3084 kg (no code) kg 06-27-2019 no name [facility] 10:120400 ([id number]) Body weight 48.0816 kg (no code) kg 06-24-2019 no name [facility] 11:420400 ([id number]) Body weight 48.762 kg (no code) kg 06-22-2019 no name [facility] 07:25-0400 ([id number]) Body weight 48.762 kg (no code) kg 06-21-2019 no name [facility] 09:32-0400 ([id number]) Body weight 48.762 kg (no code) kg 06-20-2019 no name [facility] 09:19-0400 ([id number]) Body weight 48.0816 kg (no code) kg 06-18-2019 no name [facility] 09:29-0400 ([id number]) Body weight 48.5352 kg (no code) kg 06-17-2019 no name [facility] 07:00-0400 ([id number]) Body weight 48.5352 kg (no code) kg 06-15-2019 no name [facility] 06:31-0400 ([id number]) Body weight 48.3084 kg (no code) kg 06-14-2019 no name [facility] 10:48-0400 ([id number]) Body weight 48.3084 kg (no code) kg 06-13-2019 no name [facility] 09:53-0400 ([id number]) Body weight 48.9888 kg (no code) kg 06-10-2019 no name [facility] 13:20-0400 ([id number]) Body weight 48.5352 kg (no code) kg 06-08-2019 no name [facility] 08:09-0400 ([id number]) Body weight 49.4424 kg (no code) kg 06-07-2019 no name [facility] 10:34-0400 ([id number]) Body weight 49.896 kg (no code) kg 06-06-2019 no name [facility] 10:35-0400 ([id number]) Body weight 48.9888 kg (no code) kg 06-03-2019 no name [facility] 06:53-0400 ([id number]) Body weight 48.5352 kg (no code) kg 06-01-2019 no name [facility] 06:27-0400 ([id number]) Body weight 49.2156 kg (no code) kg 05-31-2019 no name [facility] 09:07-0400 ([id number]) Body weight 48.9888 kg (no code) kg 05-30-2019 no name [facility] 09:14-0400 ([id number]) Body weight 48.0816 kg (no code) kg 05-28-2019 no name [facility] 04:31-0500 ([id number]) Body weight 49.2156 kg (no code) kg 05-26-2019 no name [facility] 05:58-0500 ([id number]) Body weight 48.9888 kg (no code) kg 05-25-2019 no name [facility] 05:01-0500 ([id number]) Body weight 48.0816 kg (no code) kg 05-24-2019 no name [facility] 04:29-0500 ([id number]) Body weight 48.9888 kg (no code) kg 05-23-2019 no name [facility] 04:44-0500 ([id number]) Body weight 47.628 kg (no code) kg 05-21-2019 no name [facility] 07:57-0500 ([id number]) Body weight 48.0816 kg (no code) kg 05-20-2019 no name [facility] 06:00-0500 ([id number]) Body weight 48.5352 kg (no code) kg 05-19-2019 no name [facility] 04:36-0500 ([id number]) Body weight 48.0816 kg (no code) kg 05-18-2019 no name [facility] 05:14-0500 (12510) Body weight 47.8548 kg (no code) kg 05-16-2019 no name [facility] 09:08-0500 ([id number]) Body weight 47.628 kg (H) kg 05-14-2019 no name [facility] 05:05-0500 ([id number]) Body weight 46.494 kg (no code) kg 05-13-2019 no name [facility] 12:32-0500 ([id number]) Body weight 47.4012 kg (no code) kg 05-11-2019 no name [facility] 10:51-0500 ([id number]) Body weight 47.4012 kg (no code) kg 05-10-2019 no name [facility] 07:36-0500 ([id number]) Body weight 47.8548 kg (no code) kg 05-09-2019 no name [facility] 08:25-0500 ([id number]) Body weight 46.7208 kg (L) kg 05-07-2019 no name [facility] 08:43-0500 ([id number]) Body weight 48.0816 kg (no code) kg 05-06-2019 no name [facility] 05:36-0500 ([id number]) Body weight 47.628 kg (no code) kg 05-04-2019 no name [facility] 11:45-0500 ([id number]) Body weight 47.628 kg (no code) kg 05-04-2019 no name [facility] 03:48-0500 ([id number]) Body weight 47.628 kg (no code) kg 05-03-2019 no name [facility] 08:33-0500 ([id number]) Body weight 47.1744 kg (no code) kg 05-02-2019 no name [facility] 10:49-0500 ([id number]) Body weight 47.1744 kg (no code) kg 04-29-2019 no name [facility] 03:37-0500 ([id number]) Body weight 47.628 kg (no code) kg 04-27-2019 no name [facility] 08:15-0500 ([id number]) Body weight 47.8548 kg (no code) kg 04-26-2019 no name [facility] 07:12-0500 ([id number]) Body weight 47.1744 kg (no code) kg 04-25-2019 no name [facility] 08:37-0500 ([id number]) Body weight 46.9476 kg (no code) kg 04-22-2019 no name [facility] 05:06-0500 ([id number]) Body weight 46.9476 kg (no code) kg 04-21-2019 no name [facility] 05:20-0500 ([id number]) Body weight 47.8548 kg (no code) kg 04-20-2019 no name [facility] 05:18-0500 ([id number]) Body weight 47.4012 kg (no code) kg 04-19-2019 no name [facility] 09:15-0500 ([id number]) Body weight 47.8548 kg (no code) kg 04-18-2019 no name [facility] 06:29-0500 ([id number]) Body weight 47.8548 kg (no code) kg 04-15-2019 no name [facility] 04:22-0500 ([id number]) Body weight 47.4012 kg (no code) kg 04-14-2019 no name [facility] 08:57-0500 ([id number]) Body weight 47.628 kg (no code) kg 04-13-2019 no name [facility] 07:42-0500 ([id number]) Body weight 48.0816 kg (no code) kg 04-12-2019 no name [facility] 09:02-0500 ([id number]) Body weight 47.628 kg (no code) kg 04-11-2019 no name [facility] 08:52-0500 ([id number]) Body weight 47.628 kg (no code) kg 04-09-2019 no name [facility] 07:50-0500 ([id number]) Body weight 48.0816 kg (no code) kg 04-08-2019 no name [facility] 06:55-0500 ([id number]) Body weight 48.3084 kg (no code) kg 04-06-2019 no name [facility] 04:17-0500 ([id number]) Body weight 48.3084 kg (no code) kg 04-05-2019 no name [facility] 07:45-0500 ([id number]) Body weight 48.5352 kg (no code) kg 04-04-2019 no name [facility] 06:42-0500 ([id number]) Body weight 48.0816 kg (no code) kg 04-01-2019 no name [facility] 05:22-0500 ([id number]) Body weight 48.9888 kg (no code) kg 03-30-2019 no name [facility] 05:11-0500 ([id number]) Body weight 49.4424 kg (H) kg 03-29-2019 no name [facility] 07:00-0500 ([id number]) Body weight 48.0816 kg (no code) kg 03-28-2019 no name [facility] 06:43-0500 ([id number]) Body weight 47.1744 kg (no code) kg 03-26-2019 no name [facility] 11:03-0500 ([id number]) Body weight 46.494 kg (no code) kg 03-25-2019 no name [facility] 04:31-0500 ([id number]) Body weight 48.9888 kg (HH) kg 03-22-2019 no name [facility] 07:35-0500 ([id number]) Body weight 47.1744 kg (no code) kg 03-21-2019 no name [facility] 09:56-0500 ([id number]) Body weight 47.1744 kg (no code) kg 03-18-2019 no name [facility] 04:56-0500 ([id number]) Body weight 47.4012 kg (no code) kg 03-14-2019 no name [facility] 09:11-0500 ([id number]) Body weight 47.8548 kg (no code) kg 03-12-2019 no name [facility] 08:01-0500 ([id number]) Body weight 48.3084 kg (no code) kg 03-11-2019 no name [facility] 06:15-0500 ([id number]) Body weight 48.3084 kg (no code) kg 03-10-2019 no name [facility] 06:05-0500 ([id number]) Body weight 48.762 kg (no code) kg 03-09-2019 no name [facility] 04:59-0500 ([id number]) Body weight 49.4424 kg (no code) kg 03-08-2019 no name [facility] 08:09-0500 ([id number]) Body weight 48.762 kg (no code) kg 03-07-2019 no name [facility] 07:17-0500 ([id number]) Body weight 48.3084 kg (no code) kg 03-05-2019 no name [facility] 12:08-0500 ([id number]) Body weight 48.0816 kg (no code) kg 03-04-2019 no name [facility] 05:33-0500 ([id number]) Body weight 49.2156 kg (no code) kg 03-01-2019 no name [facility] 09:39-0500 ([id number]) Body weight 49.4424 kg (no code) kg 02-28-2019 no name [facility] 08:01-0500 ([id number]) Body weight 49.6692 kg (no code) kg 02-23-2019 no name [facility] 06:26-0500 ([id number]) Body weight 49.6692 kg (no code) kg 02-22-2019 no name [facility] 08:17-0500 ([id number]) Body weight 49.6692 kg (no code) kg 02-21-2019 no name [facility] 09:55-0500 ([id number]) Body weight 48.762 kg (no code) kg 02-18-2019 no name [facility] 06:33-0500 ([id number]) Body weight 48.762 kg (no code) kg 02-16-2019 no name [facility] 05:00-0500 ([id number]) Body weight 48.5352 kg (no code) kg 02-15-2019 no name [facility] 04:22-0500 ([id number]) Body weight 48.762 kg (no code) kg 02-14-2019 no name [facility] 04:57-0500 ([id number]) Body weight 48.9888 kg (no code) kg 02-11-2019 no name [facility] 05:31-0500 ([id number]) Body weight 49.2156 kg (no code) kg 02-10-2019 no name [facility] 11:05-0500 ([id number]) Body weight 49.2156 kg (no code) kg 02-09-2019 no name [facility] 05:36-0500 ([id number]) Body weight 49.2156 kg (no code) kg 02-08-2019 no name [facility] 07:01-0500 ([id number]) Body weight 49.2156 kg (no code) kg 02-07-2019 no name [facility] 06:47-0500 ([id number]) Body weight 49.4424 kg (no code) kg 02-04-2019 no name [facility] 05:20-0500 ([id number]) Body weight 48.0816 kg (no code) kg 02-02-2019 no name [facility] 07:09-0500 ([id number]) Body weight 48.5352 kg (no code) kg 02-01-2019 no name [facility] 07:03-0500 ([id number]) Body weight 48.9888 kg (no code) kg 01-31-2019 no name [facility] 08:11-0500 ([id number]) Body weight 48.0816 kg (no code) kg 01-26-2019 no name [facility] 05:06-0500 ([id number]) Body weight 48.0816 kg (no code) kg 01-25-2019 no name [facility] 07:40-0500 ([id number]) Body weight 48.5352 kg (no code) kg 01-24-2019 no name [facility] 08:29-0500 ([id number]) Body weight 48.762 kg (no code) kg 01-21-2019 no name [facility] 06:21-0400 ([id number]) Body weight 48.5352 kg (no code) kg 01-19-2019 no name [facility] 06:20-0400 ([id number]) Body weight 48.9888 kg (no code) kg 01-18-2019 no name [facility] 08:52-0400 ([id number]) Body weight 48.9888 kg (no code) kg 01-17-2019 no name [facility] 12:11-0400 ([id number]) Body weight 48.3084 kg (L) kg 01-15-2019 no name [facility] 14:23-0400 ([id number]) Body weight 49.4424 kg (no code) kg 01-14-2019 no name [facility] 10:23-0400 ([id number]) Body weight 48.5352 kg (no code) kg 01-13-2019 no name [facility] 11:12-0400 ([id number]) Body weight 48.5352 kg (no code) kg 01-12-2019 no name [facility] 10:06-0400 ([id number]) Body weight 48.3084 kg (no code) kg 01-11-2019 no name [facility] 11:27-0400 ([id number]) Body weight 48.3084 kg (no code) kg 01-10-2019 no name [facility] 16:10-0400 ([id number]) Body weight 48.0816 kg (no code) kg 01-07-2019 no name [facility] 10:40-0400 ([id number]) Body weight 48.9888 kg (no code) kg 01-06-2019 no name [facility] 12:59-0400 ([id number]) Body weight 48.9888 kg (no code) kg 01-05-2019 no name [facility] 11:12-0400 ([id number]) Body weight 49.2156 kg (no code) kg 01-04-2019 no name [facility] 12:57-0400 ([id number]) Body weight 48.762 kg (no code) kg 01-03-2019 no name [facility] 11:370400 ([id number]) Body weight 48.5352 kg (L) kg 01-01-2019 no name [facility] 14:35-0400 ([id number]) Body weight 49.6692 kg (no code) kg 12-31-2018 no name [facility] 11:22-0400 ([id number]) Body weight 49.6692 kg (no code) kg 12-30-2018 no name [facility] 10:32-0400 ([id number]) Body weight 49.4424 kg (no code) kg 12-29-2018 no name [facility] 10:120400 ([id number]) Body weight 49.4424 kg (no code) kg 12-28-2018 no name [facility] 16:01-0400 ([id number]) Body weight 49.6692 kg (no code) kg 12-27-2018 no name [facility] 13:33-0400 ([id number]) Body weight 49.4424 kg (no code) kg 12-25-2018 no name [facility] 13:100400 ([id number]) Body weight 48.9888 kg (L) kg 12-24-2018 no name [facility] 11:310400 ([id number]) Body weight 50.1228 kg (no code) kg 12-23-2018 no name [facility] 11:020400 ([id number]) Body weight 49.6692 kg (no code) kg 12-22-2018 no name [facility] 10:54-0400 ([id number]) Body weight 49.2156 kg (no code) kg 12-21-2018 no name [facility] 14:160400 ([id number]) Body weight 49.2156 kg (no code) kg 12-20-2018 no name [facility] 14:360400 ([id number]) Body weight 49.6692 kg (no code) kg 12-18-2018 no name [facility] 11:540400 ([id number]) Body weight 49.2156 kg (no code) kg 12-17-2018 no name [facility] 12:090 ([id number]) Body weight 49.6692 kg (no code) kg 12-15-2018 no name [facility] 10:200400 ([id number]) Body weight 49.896 kg (no code) kg 12-14-2018 no name [facility] 12:180400 ([id number]) Body weight 48.9888 kg (no code) kg 12-13-2018 no name [facility] 10:290400 ([id number]) Body weight 49.4424 kg (L) kg 12-10-2018 no name [facility] 12:080400 ([id number]) Body weight 50.8032 kg (no code) kg 12-09-2018 no name [facility] 11:290400 ([id number]) Body weight 49.896 kg (no code) kg 12-08-2018 no name [facility] 11:200400 ([id number]) Body weight 50.3496 kg (no code) kg 12-07-2018 no name [facility] 12:540400 ([id number]) Body weight 49.896 kg (no code) kg 12-06-2018 no name [facility] 13:270400 ([id number]) Body weight 51.9372 kg (H) kg 12-03-2018 no name [facility] 12:360400 ([id number]) Body weight 50.5764 kg (no code) kg 12-02-2018 no name [facility] 11:03-0400 ([id number]) Body weight 50.5764 kg (no code) kg 12-01-2018 no name [facility] 16:38-0400 ([id number]) Body weight 51.2568 kg (no code) kg 11-29-2018 no name [facility] 17:24-0400 ([id number]) Body weight 50.3496 kg (no code) kg 11-26-2018 no name [facility] 10:10-0400 ([id number]) Body weight 50.1228 kg (no code) kg 11-24-2018 no name [facility] 14:11-0400 ([id number]) Body weight 49.896 kg (no code) kg 11-23-2018 no name [facility] 14:30-0400 ([id number]) Body weight 51.4836 kg (no code) kg 11-19-2018 no name [facility] 11:16-0400 ([id number]) Body weight 52.164 kg (no code) kg 11-17-2018 no name [facility] 10:41-0400 ([id number]) Body weight 52.3908 kg (no code) kg 11-16-2018 no name [facility] 14:060400 ([id number]) Body weight 51.7104 kg (no code) kg 11-15-2018 no name [facility] 17:53-0400 ([id number]) Body weight 51.2568 kg (no code) kg 11-13-2018 no name [facility] 10:09-0400 ([id number]) Body weight 51.2568 kg (no code) kg 11-12-2018 no name [facility] 10:11-0400 ([id number]) Body weight 51.2568 kg (no code) kg 11-11-2018 no name [facility] 10:12-0400 ([id number]) Body weight 51.7104 kg (HH) kg 11-10-2018 no name [facility] 14:03-0400 ([id number]) Body weight 50.1228 kg (no code) kg 11-09-2018 no name [facility] 16:05-0400 ([id number]) Body weight 50.5764 kg (no code) kg 11-08-2018 no name [facility] 11:36-0400 ([id number]) Body weight 51.2568 kg (no code) kg 11-06-2018 no name [facility] 11:30-0400 ([id number]) Body weight 50.5764 kg (no code) kg 11-05-2018 no name [facility] 17:20-0400 ([id number]) Body weight 50.1228 kg (no code) kg 11-04-2018 no name [facility] 10:12-0400 ([id number]) Body weight 50.0094 kg (no code) kg 11-03-2018 no name [facility] 10:00-0400 ([id number]) Body weight 50.1228 kg (no code) kg 11-03-2018 no name [facility] 10:00-0400 ([id number]) Body weight 50.1228 kg (no code) kg 11-02-2018 no name [facility] 10:00-0400 ([id number]) Body weight 50.5764 kg (no code) kg 11-01-2018 no name [facility] 10:00-0400 ([id number]) Body weight 50.3496 kg (no code) kg 10-31-2018 no name [facility] 10:00-0400 ([id number]) Body weight 50.5764 kg (no code) kg 10-29-2018 no name [facility] 11:32-0400 ([id number]) Body weight 49.6692 kg (L) kg 10-27-2018 no name [facility] 18:50-0400 ([id number]) Body weight 50.8032 kg (no code) kg 10-26-2018 no name [facility] 14:48-0400 ([id number]) Body weight 50.3496 kg (no code) kg 10-23-2018 no name [facility] 10:57-0400 ([id number]) Body weight 50.3496 kg (no code) kg 10-22-2018 no name [facility] 11:23-0400 ([id number]) Body weight 50.3496 kg (no code) kg 10-21-2018 no name [facility] 10:490400 ([id number]) Body weight 50.3496 kg (no code) kg 10-20-2018 no name [facility] 10:120400 ([id number]) Body weight 51.03 kg (no code) kg 10-19-2018 no name [facility] 14:220400 ([id number]) Body weight 51.2568 kg (no code) kg 10-18-2018 no name [facility] 14:300400 ([id number]) Body weight 51.9372 kg (no code) kg 10-15-2018 no name [facility] 10:370400 ([id number]) Body weight 51.03 kg (no code) kg 10-14-2018 no name [facility] 10:0400 ([id number]) Body weight 51.4836 kg (no code) kg 10-12-2018 no name [facility] 15:0400 ([id number]) Body weight 51.4836 kg (no code) kg 10-11-2018 no name [facility] 14:0400 ([id number]) Body weight 50.8032 kg (no code) kg 10-09-2018 no name [facility] 10:550400 ([id number]) Body weight 51.2568 kg (H) kg 10-08-2018 no name [facility] 10:0400 ([id number]) Body weight 49.896 kg (no code) kg 10-07-2018 no name [facility] 11:090400 ([id number]) Body weight 51.2568 kg (no code) kg 10-04-2018 no name [facility] 14:390400 ([id number]) Body weight 51.03 kg (no code) kg 10-01-2018 no name [facility] 10:120400 ([id number]) Body weight 50.5764 kg (no code) kg 09-30-2018 no name [facility] 11:180400 ([id number]) Body weight 50.3496 kg (no code) kg 09-29-2018 no name [facility] 11:04-0400 ([id number]) Body weight 50.3496 kg (no code) kg 09-27-2018 no name [facility] 16:16-0400 ([id number]) Body weight 50.1228 kg (no code) kg 09-25-2018 no name [facility] 11:13-0400 ([id number]) Body weight 50.3496 kg (no code) kg 09-24-2018 no name [facility] 11:32-0400 ([id number]) Body weight 50.3496 kg (no code) kg 09-22-2018 no name [facility] 12:09-0400 ([id number]) Body weight 50.3496 kg (no code) kg 09-21-2018 no name [facility] 15:40-0400 ([id number]) Body weight 50.3496 kg (no code) kg 09-20-2018 no name [facility] 15:14-0400 ([id number]) Body weight 50.3496 kg (no code) kg 09-18-2018 no name [facility] 11:17-0400 ([id number]) Body weight 51.03 kg (no code) kg 09-17-2018 no name [facility] 11:03-0400 ([id number]) Body weight 51.2568 kg (no code) kg 09-16-2018 no name [facility] 10:060400 ([id number]) Body weight 50.5764 kg (L) kg 09-15-2018 no name [facility] 12:45-0400 ([id number]) Body weight 51.7104 kg (no code) kg 09-14-2018 no name [facility] 12:42-0400 ([id number]) Body weight 51.2568 kg (no code) kg 09-13-2018 no name [facility] 13:46-0400 ([id number]) Body weight 50.1228 kg (no code) kg 09-11-2018 no name [facility] 10:17-0400 ([id number]) Body weight 50.5764 kg (no code) kg 09-10-2018 no name [facility] 12:35-0400 ([id number]) Body weight 51.03 kg (no code) kg 09-09-2018 no name [facility] 10:27-0400 ([id number]) Body weight 51.03 kg (H) kg 09-08-2018 no name [facility] 15:15-0400 ([id number]) Body weight 49.896 kg (no code) kg 09-07-2018 no name [facility] 15:56-0400 ([id number]) Body weight 49.896 kg (no code) kg 2018 no name [facility] 13:15-0400 ([id number]) Body weight 48.9888 kg (no code) kg 09-03-2018 no name [facility] 12:58-0400 ([id number]) Body weight 49.6692 kg (no code) kg 09-01-2018 no name [facility] 15:010400 ([id number]) Body weight 48.9888 kg (L) kg 08-31-2018 no name [facility] 17:40-0400 ([id number]) Body weight 50.3496 kg (no code) kg 08-30-2018 no name [facility] 15:11-0400 ([id number]) Body weight 50.8032 kg (no code) kg 08-25-2018 no name [facility] 16:44-0400 ([id number]) Body weight 50.3496 kg (no code) kg 08-24-2018 no name [facility] 13:59-0400 ([id number]) Body weight 51.2568 kg (no code) kg 08-23-2018 no name [facility] 14:42-0400 ([id number]) Body weight 49.4424 kg (no code) kg 08-13-2018 no name [facility] 13:55-0400 ([id number]) Body weight 49.896 kg (no code) kg 08-12-2018 no name [facility] 10:21-0400 ([id number]) Body weight 50.1228 kg (no code) kg 08-11-2018 no name [facility] 12:20-0400 ([id number]) Body weight 49.896 kg (no code) kg 08-10-2018 no name [facility] 13:33-0400 ([id number]) Body weight 49.4424 kg (no code) kg 08-09-2018 no name [facility] 13:29-0400 ([id number]) Body weight 51.2568 kg (no code) kg 08-06-2018 no name [facility] 10:35-0400 ([id number]) Body weight 51.03 kg (no code) kg 08-05-2018 no name [facility] 11:040400 ([id number]) Body weight 50.8032 kg (no code) kg 08-04-2018 no name [facility] 10:25-0400 ([id number]) Body weight 50.8032 kg (no code) kg 08-03-2018 no name [facility] 13:34-0400 ([id number]) Body weight 50.5764 kg (no code) kg 08-02-2018 no name [facility] 11:110400 ([id number]) Body weight 50.1228 kg (no code) kg 07-31-2018 no name [facility] 15:14-0400 ([id number]) Body weight 49.4424 kg (no code) kg 07-30-2018 no name [facility] 10:57-0400 ([id number]) Body weight 50.3496 kg (no code) kg 07-29-2018 no name [facility] 14:10-0400 ([id number]) Body weight 49.4424 kg (no code) kg 07-24-2018 no name [facility] 10:58-0400 ([id number]) Body weight 49.896 kg (no code) kg 07-23-2018 no name [facility] 10:52-0400 ([id number]) Body weight 50.3496 kg (no code) kg 07-22-2018 no name [facility] 11:05-0400 ([id number]) Body weight 50.3496 kg (no code) kg 07-21-2018 no name [facility] 11:36-0400 ([id number]) Body weight 49.896 kg (no code) kg 07-20-2018 no name [facility] 14:03-0400 ([id number]) Body weight 49.896 kg (no code) kg 07-19-2018 no name [facility] 14:21-0400 ([id number]) Body weight 50.5764 kg (no code) kg 07-17-2018 no name [facility] 10:37-0400 ([id number]) Body weight 50.3496 kg (no code) kg 07-16-2018 no name [facility] 10:21-0400 ([id number]) Body weight 50.3496 kg (no code) kg 07-15-2018 no name [facility] 11:38-0400 ([id number]) Body weight 49.896 kg (no code) kg 07-14-2018 no name [facility] 16:43-0400 ([id number]) Body weight 52.164 kg (no code) kg 07-12-2018 no name [facility] 13:40-0400 ([id number]) Body weight 50.3496 kg (no code) kg 07-09-2018 no name [facility] 13:17-0400 ([id number]) Body weight 49.6692 kg (no code) kg 07-08-2018 no name [facility] 11:43-0400 ([id number]) Body weight 48.9888 kg (no code) kg 07-07-2018 no name [facility] 17:02-0400 ([id number]) Body weight 50.3496 kg (no code) kg 07-04-2018 no name [facility] 16:14-0400 ([id number]) Body weight 50.3496 kg (no code) kg 07-03-2018 no name [facility] 10:35-0400 ([id number]) Body weight 51.03 kg (no code) kg 07-02-2018 no name [facility] 15:11-0400 ([id number]) Body weight 51.03 kg (no code) kg 07-01-2018 no name [facility] 11:50-0400 ([id number]) Body weight 51.2568 kg (no code) kg 06-30-2018 no name [facility] 10:36-0400 ([id number]) Body weight 50.3496 kg (L) kg 06-29-2018 no name [facility] 12:51-0400 ([id number]) Body weight 51.4836 kg (no code) kg 06-28-2018 no name [facility] 13:26-0400 ([id number]) Body weight 51.4836 kg (no code) kg 06-25-2018 no name [facility] 11:53-0400 ([id number]) Body weight 51.2568 kg (no code) kg 06-24-2018 no name [facility] 11:030400 ([id number]) Body weight 51.4836 kg (no code) kg 06-23-2018 no name [facility] 10:43-0400 ([id number]) Body weight 51.9372 kg (no code) kg 06-22-2018 no name [facility] 13:36-0400 ([id number]) Body weight 52.164 kg (no code) kg 06-21-2018 no name [facility] 12:48-0400 ([id number]) Body weight 51.9372 kg (no code) kg 06-18-2018 no name [facility] 14:55-0400 ([id number]) Body weight 51.7104 kg (no code) kg 06-16-2018 no name [facility] 14:19-0400 ([id number]) Body weight 51.7104 kg (no code) kg 06-15-2018 no name [facility] 14:43-0400 ([id number]) Body weight 51.4836 kg (no code) kg 06-14-2018 no name [facility] 14:48-0400 ([id number]) Body weight 51.03 kg (no code) kg 06-12-2018 no name [facility] 11:130400 ([id number]) Body weight 51.9372 kg (H) kg 06-11-2018 no name [facility] 11:200400 ([id number]) Body weight 50.5764 kg (no code) kg 06-10-2018 no name [facility] 10:34-0400 ([id number]) Body weight 50.8032 kg (no code) kg 06-09-2018 no name [facility] 12:42-0400 ([id number]) Body weight 51.4836 kg (no code) kg 06-08-2018 no name [facility] 16:51-0400 ([id number]) Body weight 51.03 kg (no code) kg 06-07-2018 no name [facility] 13:38-0400 ([id number]) Body weight 51.2568 kg (no code) kg 06-05-2018 no name [facility] 14:28-0400 ([id number]) Body weight 51.2568 kg (H) kg 06-04-2018 no name [facility] 12:54-0400 ([id number]) Body weight 50.1228 kg (no code) kg 06-03-2018 no name [facility] 11:44-0400 ([id number]) Body weight 50.1228 kg (no code) kg 06-02-2018 no name [facility] 10:52-0400 ([id number]) Body weight 49.896 kg (no code) kg 06-01-2018 no name [facility] 15:09-0400 ([id number]) Body weight 49.896 kg (no code) kg 05-31-2018 no name [facility] 14:33-0400 ([id number]) Body weight 50.5764 kg (no code) kg 05-29-2018 no name [facility] 11:46-0500 ([id number]) Body weight 50.3496 kg (no code) kg 05-28-2018 no name [facility] 10:53-0500 ([id number]) Body weight 50.5764 kg (no code) kg 05-27-2018 no name [facility] 11:02-0500 ([id number]) Body weight 50.5764 kg (no code) kg 05-26-2018 no name [facility] 10:36-0500 ([id number]) Body weight 51.7104 kg (no code) kg 05-22-2018 no name [facility] 12:17-0500 ([id number]) Body weight 51.03 kg (no code) kg 05-21-2018 no name [facility] 16:40-0500 ([id number]) Body weight 50.5764 kg (no code) kg 05-19-2018 no name [facility] 10:34-0500 ([id number]) Body weight 50.5764 kg (no code) kg 05-18-2018 no name [facility] 14:11-0500 ([id number]) Body weight 50.5764 kg (no code) kg 05-17-2018 no name [facility] 11:51-0500 ([id number]) Body weight 50.8032 kg (no code) kg 05-15-2018 no name [facility] 16:35-0500 ([id number]) Body weight 50.8032 kg (no code) kg 05-14-2018 no name [facility] 11:10-0500 ([id number]) Body weight 52.3908 kg (no code) kg 05-11-2018 no name [facility] 14:040500 ([id number]) Body weight 52.3908 kg (no code) kg 05-10-2018 no name [facility] 14:020500 ([id number]) Body weight 51.7104 kg (no code) kg 05-08-2018 no name [facility] 11:090500 ([id number]) Body weight 51.2568 kg (no code) kg 05-07-2018 no name [facility] 11:41-0500 ([id number]) Body weight 50.3496 kg (no code) kg 05-06-2018 no name [facility] 10:41-0500 ([id number]) Body weight 51.03 kg (no code) kg 05-05-2018 no name [facility] 10:44-0500 ([id number]) Body weight 51.2568 kg (L) kg 05-04-2018 no name [facility] 14:010500 ([id number]) Body weight 52.6176 kg (no code) kg 05-03-2018 no name [facility] 10:53-0500 ([id number]) Body weight 50.8032 kg (no code) kg 05-01-2018 no name [facility] 12:21-0500 ([id number]) Body weight 52.3908 kg (no code) kg 04-28-2018 no name [facility] 10:46-0500 ([id number]) Body weight 53.0712 kg (no code) kg 04-27-2018 no name [facility] 13:56-0500 ([id number]) Body weight 52.6176 kg (no code) kg 04-26-2018 no name [facility] 12:58-0500 ([id number]) Body weight 52.8444 kg (no code) kg 04-23-2018 no name [facility] 10:40-0500 ([id number]) Body weight 52.164 kg (no code) kg 04-22-2018 no name [facility] 12:19-0500 ([id number]) Body weight 52.3908 kg (no code) kg 04-21-2018 no name [facility] 13:10-0500 ([id number]) Body weight 52.3908 kg (no code) kg 04-20-2018 no name [facility] 14:12-0500 ([id number]) Body weight 52.3908 kg (no code) kg 04-19-2018 no name [facility] 13:48-0500 ([id number]) Body weight 51.4836 kg (L) kg 04-16-2018 no name [facility] 10:31-0500 ([id number]) Body weight 52.8444 kg (H) kg 04-15-2018 no name [facility] 12:32-0500 ([id number]) Body weight 51.4836 kg (no code) kg 04-14-2018 no name [facility] 10:42-0500 ([id number]) Body weight 51.7104 kg (no code) kg 04-13-2018 no name [facility] 14:54-0500 ([id number]) Body weight 51.9372 kg (no code) kg 04-12-2018 no name [facility] 17:54-0500 ([id number]) Body weight 52.3908 kg (L) kg 04-10-2018 no name [facility] 10:35-0500 ([id number]) Body weight 53.7516 kg (no code) kg 04-09-2018 no name [facility] 15:10-0500 ([id number]) Body weight 53.0712 kg (no code) kg 04-07-2018 no name [facility] 10:50-0500 ([id number]) Body weight 53.0712 kg (no code) kg 04-05-2018 no name [facility] 13:26-0500 ([id number]) Body weight 51.9372 kg (no code) kg 04-03-2018 no name [facility] 11:20-0500 ([id number]) Body weight 52.164 kg (no code) kg 04-02-2018 no name [facility] 11:23-0500 ([id number]) Body weight 51.7104 kg (no code) kg 03-31-2018 no name [facility] 10:13-0500 ([id number]) Body weight 52.3908 kg (no code) kg 03-30-2018 no name [facility] 13:56-0500 ([id number]) Body weight 52.3908 kg (no code) kg 03-29-2018 no name [facility] 14:39-0500 ([id number]) Body weight 52.6176 kg (no code) kg 03-27-2018 no name [facility] 10:24-0500 ([id number]) Body weight 51.7104 kg (no code) kg 03-26-2018 no name [facility] 10:18-0500 ([id number]) Body weight 52.164 kg (no code) kg 03-25-2018 no name [facility] 10:35-0500 ([id number]) Body weight 51.7104 kg (no code) kg 03-24-2018 no name [facility] 17:18-0500 ([id number]) Body weight 52.6176 kg (no code) kg 03-12-2018 no name [facility] 12:48-0500 ([id number]) Body weight 52.3908 kg (no code) kg 03-10-2018 no name [facility] 11:24-0500 ([id number]) Body weight 52.8444 kg (no code) kg 03-09-2018 no name [facility] 14:19-0500 ([id number]) Body weight 52.6176 kg (no code) kg 03-08-2018 no name [facility] 13:450500 ([id number]) Body weight 52.6176 kg (no code) kg 03-06-2018 no name [facility] 13:020500 ([id number]) Body weight 52.6176 kg (no code) kg 03-05-2018 no name [facility] 13:020500 ([id number]) Body weight 52.8444 kg (no code) kg 03-02-2018 no name [facility] 13:140500 ([id number]) Body weight 52.6176 kg (no code) kg 03-01-2018 no name [facility] 11:240500 ([id number]) Body weight 53.0712 kg (no code) kg 02-27-2018 no name [facility] 11:400500 ([id number]) Body weight 52.6176 kg (no code) kg 02-26-2018 no name [facility] 12:39-0500 ([id number]) Body weight 52.6176 kg (no code) kg 02-25-2018 no name [facility] 12:500500 ([id number]) Body weight 53.298 kg (no code) kg 02-23-2018 no name [facility] 14:070500 ([id number]) Body weight 52.164 kg (no code) kg 02-17-2018 no name [facility] 14:480500 ([id number]) Body weight 52.3908 kg (no code) kg 02-16-2018 no name [facility] 14:530500 ([id number]) Body weight 52.6176 kg (no code) kg 02-15-2018 no name [facility] 14:180500 ([id number]) Body weight 52.164 kg (no code) kg 02-12-2018 no name [facility] 14:090500 ([id number]) Body weight 51.7104 kg (no code) kg 02-10-2018 no name [facility] 14:35-0500 ([id number]) Blood Pressure 136/ (no code) Systolic: 90 - 06-16-2020 no n [facility] 62mm[Hg] 120 mm[Hg] 06:03-0400 ([id number]) Diastolic: 60 - 80 mm[Hg] Blood Pressure 116/ (no code) Systolic: 09-05-2019 no n [facility] 82mm[Hg] 120 mm[Hg] 12:17-0400 ([id number]) Diastolic: 60 - 80 mm[Hg] Blood Pressure 111/ (no code) Systolic: 08-30-2019 no n [facility] 52mm[Hg] 120 mm[Hg] 07:28-0400 ([id number]) Diastolic: 60 - 80 mm[Hg] Blood Pressure 116/ (no code) Systolic: 08-29-2019 no n [facility] 52mm[Hg] 120 mm[Hg] 04:33-0400 ([id number]) Diastolic: 60 - 80 mm[Hg] Blood Pressure 120/ (no code) Systolic: 08-26-2019 no n [facility] 57mm[Hg] 120 mm[Hg] 05:23-0400 ([id number]) Diastolic: 60 - 80 mm[Hg] Blood Pressure 154/ (no code) Systolic: 08-25-2019 no n [facility] 65mm[Hg] 120 mm[Hg] 09:58-0400 ([id number]) Diastolic: 60 - 80 mm[Hg] Blood Pressure 117/ (no code) Systolic: 08-24-2019 no n [facility] 58mm[Hg] 120 mm[Hg] 05:12-0400 ([id number]) Diastolic: 60 - 80 mm[Hg] Blood Pressure 141/ (no code) Systolic: 08-23-2019 no n [facility] 59mm[Hg] 120 mm[Hg] 07:21-0400 ([id number]) Diastolic: 60 - 80 mm[Hg] Blood Pressure 109/ (no code) Systolic: 08-22-2019 no n [facility] 66mm[Hg] 120 mm[Hg] 07:39-0400 ([id number]) Diastolic: 60 - 80 mm[Hg] Blood Pressure 160/ (no code) Systolic: 08-19-2019 no n [facility] 59mm[Hg] 120 mm[Hg] 06:12-0400 ([id number]) Diastolic: 60 - 80 mm[Hg] Blood Pressure 110/ (no code) Systolic: 08-17-2019 no n [facility] 66mm[Hg] 120 mm[Hg] 07:10-0400 ([id number]) Diastolic: 60 - 80 mm[Hg] Blood Pressure 121/ (no code) Systolic: 08-16-2019 no n [facility] 66mm[Hg] 120 mm[Hg] 10:13-0400 ([id number]) Diastolic: 60 - 80 mm[Hg] Blood Pressure 106/ (no code) Systolic: 08-12-2019 no n [facility] 50mm[Hg] 120 mm[Hg] 06:030400 ([id number]) Diastolic: 60 - 80 mm[Hg] Blood Pressure 108/ (no code) Systolic: 08-10-2019 no n [facility] 52mm[Hg] 120 mm[Hg] 06:30-0400 ([id number]) Diastolic: 60 - 80 mm[Hg] Blood Pressure 114/ (no code) Systolic: 08-09-2019 no n [facility] 63mm[Hg] 120 mm[Hg] 09:48-0400 ([id number]) Diastolic: 60 - 80 mm[Hg] Blood Pressure 86/ (L) Systolic: 08-08-2019 no na [facility] 57mm[Hg] 120 mm[Hg] 08:290400 ([id number]) Diastolic: 60 - 80 mm[Hg] Blood Pressure 114/ (no code) Systolic: 08-05-2019 no n [facility] 63mm[Hg] 120 mm[Hg] 06:03-0400 ([id number]) Diastolic: 60 - 80 mm[Hg] Blood Pressure 135/ (no code) Systolic: 08-03-2019 no n [facility] 59mm[Hg] 120 mm[Hg] 05:31-0400 ([id number]) Diastolic: 60 - 80 mm[Hg] Blood Pressure 100/ (L) Systolic: 08-02-2019 no na [facility] 47mm[Hg] 120 mm[Hg] 07:15-0400 ([id number]) Diastolic: 60 - 80 mm[Hg] Blood Pressure 155/ (no code) Systolic: 08-01-2019 no n [facility] 62mm[Hg] 120 mm[Hg] 04:54-0400 ([id number]) Diastolic: 60 - 80 mm[Hg] Blood Pressure 122/ (no code) Systolic: 07-29-2019 no n [facility] 58mm[Hg] 120 mm[Hg] 06:20-0400 ([id number]) Diastolic: 60 - 80 mm[Hg] Blood Pressure 117/ (no code) Systolic: 07-27-2019 no n [facility] 58mm[Hg] 120 mm[Hg] 05:220400 ([id number]) Diastolic: 60 - 80 mm[Hg] Blood Pressure 148/ (no code) Systolic: 07-26-2019 no n [facility] 64mm[Hg] 120 mm[Hg] 10:050400 ([id number]) Diastolic: 60 - 80 mm[Hg] Blood Pressure 116/ (no code) Systolic: 07-23-2019 no n [facility] 56mm[Hg] 120 mm[Hg] 06:460400 ([id number]) Diastolic: 60 - 80 mm[Hg] Blood Pressure 130/ (no code) Systolic: 07-22-2019 no n [facility] 61mm[Hg] 120 mm[Hg] 05:150400 ([id number]) Diastolic: 60 - 80 mm[Hg] Blood Pressure 125/ (no code) Systolic: 07-20-2019 no n [facility] 65mm[Hg] 120 mm[Hg] 03:34-0400 ([id number]) Diastolic: 60 - 80 mm[Hg] Blood Pressure 110/ (no code) Systolic: 07-19-2019 no n [facility] 53mm[Hg] 120 mm[Hg] 10:060400 ([id number]) Diastolic: 60 - 80 mm[Hg] Blood Pressure 95/ (no code) Systolic: 07-18-2019 no n [facility] 56mm[Hg] 120 mm[Hg] 09:16-0400 ([id number]) Diastolic: 60 - 80 mm[Hg] Blood Pressure 99/ (no code) Systolic: 07-15-2019 no n [facility] 65mm[Hg] 120 mm[Hg] 06:020400 ([id number]) Diastolic: 60 - 80 mm[Hg] Blood Pressure 128/ (no code) Systolic: 07-14-2019 no n [facility] 58mm[Hg] 120 mm[Hg] 05:230400 ([id number]) Diastolic: 60 - 80 mm[Hg] Blood Pressure 155/ (no code) Systolic: 07-13-2019 no n [facility] 64mm[Hg] 120 mm[Hg] 06:36-0400 ([id number]) Diastolic: 60 - 80 mm[Hg] Blood Pressure 116/ (no code) Systolic: 07-12-2019 no n [facility] 69mm[Hg] 120 mm[Hg] 07:40-0400 ([id number]) Diastolic: 60 - 80 mm[Hg] Blood Pressure 152/ (no code) Systolic: 07-11-2019 no n [facility] 66mm[Hg] 120 mm[Hg] 09:13040 ([id number]) Diastolic: 60 - 80 mm[Hg] Blood Pressure 100/ (no code) Systolic: 07-09-2019 no n [facility] 50mm[Hg] 120 mm[Hg] 11:05040 ([id number]) Diastolic: 60 - 80 mm[Hg] Blood Pressure 164/ (H) Systolic: 07-07-2019 no na me [facility] 66mm[Hg] 120 mm[Hg] 05:250400 ([id number]) Diastolic: 60 - 80 mm[Hg] Blood Pressure 140/ (no code) Systolic: 07-06-2019 no n [facility] 62mm[Hg] 120 mm[Hg] 05:280400 ([id number]) Diastolic: 60 - 80 mm[Hg] Blood Pressure 114/ (no code) Systolic: 07-05-2019 no n [facility] 56mm[Hg] 120 mm[Hg] 09:40-0400 ([id number]) Diastolic: 60 - 80 mm[Hg] Blood Pressure 124/ (no code) Systolic: 07-04-2019 no n [facility] 58mm[Hg] 120 mm[Hg] 08:52-0400 ([id number]) Diastolic: 60 - 80 mm[Hg] Blood Pressure 146/ (no code) Systolic: 07-01-2019 no n [facility] 55mm[Hg] 120 mm[Hg] 06:29-0400 ([id number]) Diastolic: 60 - 80 mm[Hg] Blood Pressure 92/ (L) Systolic: 06-30-2019 no na me [facility] 42mm[Hg] 120 mm[Hg] 09:520400 ([id number]) Diastolic: 60 - 80 mm[Hg] Blood Pressure 169/ (H) Systolic: 06-29-2019 no na me [facility] 68mm[Hg] 120 mm[Hg] 06:04040 ([id number]) Diastolic: 60 - 80 mm[Hg] Blood Pressure 108/ (no code) Systolic: 06-28-2019 no n [facility] 56mm[Hg] 120 mm[Hg] 10:050400 ([id number]) Diastolic: 60 - 80 mm[Hg] Blood Pressure 121/ (no code) Systolic: 06-27-2019 no n [facility] 52mm[Hg] 120 mm[Hg] 10:020400 ([id number]) Diastolic: 60 - 80 mm[Hg] Blood Pressure 108/ (no code) Systolic: 06-24-2019 no n [facility] 50mm[Hg] 120 mm[Hg] 10:56-0400 ([id number]) Diastolic: 60 - 80 mm[Hg] Blood Pressure 103/ (no code) Systolic: 06-22-2019 no n [facility] 61mm[Hg] 120 mm[Hg] 06:020400 ([id number]) Diastolic: 60 - 80 mm[Hg] Blood Pressure 135/ (no code) Systolic: 06-21-2019 no n [facility] 66mm[Hg] 120 mm[Hg] 09:21-0400 ([id number]) Diastolic: 60 - 80 mm[Hg] Blood Pressure 116/ (no code) Systolic: 06-20-2019 no n [facility] 71mm[Hg] 120 mm[Hg] 09:190400 ([id number]) Diastolic: 60 - 80 mm[Hg] Blood Pressure 114/ (no code) Systolic: 06-18-2019 no n [facility] 61mm[Hg] 120 mm[Hg] 09:250400 ([id number]) Diastolic: 60 - 80 mm[Hg] Blood Pressure 148/ (no code) Systolic: 06-17-2019 no n [facility] 68mm[Hg] 120 mm[Hg] 06:54-0400 ([id number]) Diastolic: 60 - 80 mm[Hg] Blood Pressure 110/ (L) Systolic: 06-15-2019 no na me [facility] 48mm[Hg] 120 mm[Hg] 05:41-0400 ([id number]) Diastolic: 60 - 80 mm[Hg] Blood Pressure 154/ (no code) Systolic: 06-14-2019 no n [facility] 63mm[Hg] 120 mm[Hg] 10:48-0400 ([id number]) Diastolic: 60 - 80 mm[Hg] Blood Pressure 137/ (H) Systolic: 06-13-2019 no na me [facility] 99mm[Hg] 120 mm[Hg] 09:530400 ([id number]) Diastolic: 60 - 80 mm[Hg] Blood Pressure 164/ (H) Systolic: 06-10-2019 no na me [facility] 67mm[Hg] 120 mm[Hg] 05:15-0400 ([id number]) Diastolic: 60 - 80 mm[Hg] Blood Pressure 156/ (no code) Systolic: 06-08-2019 no n [facility] 55mm[Hg] 120 mm[Hg] 07:58-0400 ([id number]) Diastolic: 60 - 80 mm[Hg] Blood Pressure 112/ (no code) Systolic: 06-07-2019 no n [facility] 50mm[Hg] 120 mm[Hg] 10:090400 ([id number]) Diastolic: 60 - 80 mm[Hg] Blood Pressure 141/ (no code) Systolic: 06-06-2019 no n [facility] 65mm[Hg] 120 mm[Hg] 08:39-0400 ([id number]) Diastolic: 60 - 80 mm[Hg] Blood Pressure 122/ (no code) Systolic: 06-04-2019 no n [facility] 52mm[Hg] 120 mm[Hg] 07:42-0400 ([id number]) Diastolic: 60 - 80 mm[Hg] Blood Pressure 128/ (no code) Systolic: 06-03-2019 no n [facility] 56mm[Hg] 120 mm[Hg] 06:37-0400 ([id number]) Diastolic: 60 - 80 mm[Hg] Blood Pressure 160/ (no code) Systolic: 06-01-2019 no n [facility] 73mm[Hg] 120 mm[Hg] 06:07-0400 ([id number]) Diastolic: 60 - 80 mm[Hg] Blood Pressure 116/ (no code) Systolic: 05-31-2019 no n [facility] 59mm[Hg] 120 mm[Hg] 09:00-0400 ([id number]) Diastolic: 60 - 80 mm[Hg] Blood Pressure 116/ (no code) Systolic: 05-30-2019 no n [facility] 70mm[Hg] 120 mm[Hg] 09:13-0400 ([id number]) Diastolic: 60 - 80 mm[Hg] Blood Pressure 127/ (no code) Systolic: 05-28-2019 no n [facility] 66mm[Hg] 120 mm[Hg] 04:30-0500 ([id number]) Diastolic: 60 - 80 mm[Hg] Blood Pressure 108/ (no code) Systolic: 05-27-2019 no n [facility] 58mm[Hg] 120 mm[Hg] 05:50-0500 ([id number]) Diastolic: 60 - 80 mm[Hg] Blood Pressure 118/ (no code) Systolic: 05-26-2019 no n [facility] 69mm[Hg] 120 mm[Hg] 05:57-0500 ([id number]) Diastolic: 60 - 80 mm[Hg] Blood Pressure 111/ (no code) Systolic: 05-25-2019 no n [facility] 54mm[Hg] 120 mm[Hg] 04:46-0500 ([id number]) Diastolic: 60 - 80 mm[Hg] Blood Pressure 156/ (no code) Systolic: 05-24-2019 no n [facility] 66mm[Hg] 120 mm[Hg] 04:02-0500 ([id number]) Diastolic: 60 - 80 mm[Hg] Blood Pressure 106/ (no code) Systolic: 05-23-2019 no n [facility] 62mm[Hg] 120 mm[Hg] 03:50-0500 ([id number]) Diastolic: 60 - 80 mm[Hg] Blood Pressure 96/ (no code) Systolic: 05-21-2019 no n [facility] 53mm[Hg] 120 mm[Hg] 07:55-0500 ([id number]) Diastolic: 60 - 80 mm[Hg] Blood Pressure 114/ (no code) Systolic: 05-20-2019 no n [facility] 59mm[Hg] 120 mm[Hg] 05:12-0500 ([id number]) Diastolic: 60 - 80 mm[Hg] Blood Pressure 156/ (no code) Systolic: 05-19-2019 no n [facility] 77mm[Hg] 120 mm[Hg] 04:17-0500 ([id number]) Diastolic: 60 - 80 mm[Hg] Blood Pressure 119/ (no code) Systolic: 05-18-2019 no n [facility] 65mm[Hg] 120 mm[Hg] 04:04-0500 ([id number]) Diastolic: 60 - 80 mm[Hg] Blood Pressure 120/ (no code) Systolic: 05-17-2019 no n [facility] 58mm[Hg] 120 mm[Hg] 06:41-0500 ([id number]) Diastolic: 60 - 80 mm[Hg] Blood Pressure 155/ (no code) Systolic: 05-16-2019 no n [facility] 74mm[Hg] 120 mm[Hg] 08:04-0500 ([id number]) Diastolic: 60 - 80 mm[Hg] Blood Pressure 152/ (no code) Systolic: 05-14-2019 no n [facility] 73mm[Hg] 120 mm[Hg] 05:03-0500 ([id number]) Diastolic: 60 - 80 mm[Hg] Blood Pressure 168/ (H) Systolic: 05-13-2019 no na me [facility] 77mm[Hg] 120 mm[Hg] 12:31-0500 ([id number]) Diastolic: 60 - 80 mm[Hg] Blood Pressure 125/ (no code) Systolic: 05-11-2019 no n [facility] 69mm[Hg] 120 mm[Hg] 10:51-0500 ([id number]) Diastolic: 60 - 80 mm[Hg] Blood Pressure 125/ (no code) Systolic: 05-10-2019 no n [facility] 65mm[Hg] 120 mm[Hg] 06:11-0500 ([id number]) Diastolic: 60 - 80 mm[Hg] Blood Pressure 104/ (no code) Systolic: 05-09-2019 no n [facility] 58mm[Hg] 120 mm[Hg] 07:09-0500 ([id number]) Diastolic: 60 - 80 mm[Hg] Blood Pressure 92/ (no code) Systolic: 05-07-2019 no n [facility] 65mm[Hg] 120 mm[Hg] 05:25-0500 ([id number]) Diastolic: 60 - 80 mm[Hg] Blood Pressure 128/ (no code) Systolic: 05-06-2019 no n [facility] 80mm[Hg] 120 mm[Hg] 05:36-0500 ([id number]) Diastolic: 60 - 80 mm[Hg] Blood Pressure 149/ (no code) Systolic: 05-04-2019 no n [facility] 73mm[Hg] 120 mm[Hg] 11:45-0500 ([id number]) Diastolic: 60 - 80 mm[Hg] Blood Pressure 149/ (no code) Systolic: 05-04-2019 no n [facility] 73mm[Hg] 120 mm[Hg] 03:48-0500 ([id number]) Diastolic: 60 - 80 mm[Hg] Blood Pressure 90/ (no code) Systolic: 05-03-2019 no n [facility] 50mm[Hg] 120 mm[Hg] 08:12-0500 ([id number]) Diastolic: 60 - 80 mm[Hg] Blood Pressure 142/ (no code) Systolic: 05-02-2019 no n [facility] 66mm[Hg] 120 mm[Hg] 10:49-0500 ([id number]) Diastolic: 60 - 80 mm[Hg] Blood Pressure 142/ (no code) Systolic: 04-29-2019 no n [facility] 66mm[Hg] 120 mm[Hg] 03:22-0500 ([id number]) Diastolic: 60 - 80 mm[Hg] Blood Pressure 159/ (no code) Systolic: 04-27-2019 no n [facility] 69mm[Hg] 120 mm[Hg] 08:140500 ([id number]) Diastolic: 60 - 80 mm[Hg] Blood Pressure 122/ (no code) Systolic: 04-26-2019 no n [facility] 54mm[Hg] 120 mm[Hg] 06:28-0500 ([id number]) Diastolic: 60 - 80 mm[Hg] Blood Pressure 128/ (no code) Systolic: 04-25-2019 no n [facility] 65mm[Hg] 120 mm[Hg] 08:36-0500 ([id number]) Diastolic: 60 - 80 mm[Hg] Blood Pressure 136/ (no code) Systolic: 04-22-2019 no n [facility] 69mm[Hg] 120 mm[Hg] 05:010500 ([id number]) Diastolic: 60 - 80 mm[Hg] Blood Pressure 140/ (no code) Systolic: 04-21-2019 no n [facility] 83mm[Hg] 120 mm[Hg] 05:20-0500 ([id number]) Diastolic: 60 - 80 mm[Hg] Blood Pressure 128/ (no code) Systolic: 04-20-2019 no n [facility] 67mm[Hg] 120 mm[Hg] 05:15-0500 ([id number]) Diastolic: 60 - 80 mm[Hg] Blood Pressure 112/ (no code) Systolic: 04-19-2019 no n [facility] 60mm[Hg] 120 mm[Hg] 08:40-0500 ([id number]) Diastolic: 60 - 80 mm[Hg] Blood Pressure 161/ (H) Systolic: 04-18-2019 no na me [facility] 74mm[Hg] 120 mm[Hg] 06:280500 ([id number]) Diastolic: 60 - 80 mm[Hg] Blood Pressure 119/ (L) Systolic: 04-16-2019 no na me [facility] 48mm[Hg] 120 mm[Hg] 09:310500 ([id number]) Diastolic: 60 - 80 mm[Hg] Blood Pressure 161/ (H) Systolic: 04-15-2019 no na me [facility] 74mm[Hg] 120 mm[Hg] 04:220500 ([id number]) Diastolic: 60 - 80 mm[Hg] Blood Pressure 183/ (HH) Systolic: 04-15-2019 no na me [facility] 80mm[Hg] 120 mm[Hg] 04:190500 ([id number]) Diastolic: 60 - 80 mm[Hg] Blood Pressure 163/ (H) Systolic: 04-14-2019 no na me [facility] 75mm[Hg] 120 mm[Hg] 06:170500 ([id number]) Diastolic: 60 - 80 mm[Hg] Blood Pressure 136/ (no code) Systolic: 04-13-2019 no n [facility] 70mm[Hg] 120 mm[Hg] 04:190500 ([id number]) Diastolic: 60 - 80 mm[Hg] Blood Pressure 148/ (no code) Systolic: 04-12-2019 no n [facility] 63mm[Hg] 120 mm[Hg] 05:400500 ([id number]) Diastolic: 60 - 80 mm[Hg] Blood Pressure 141/ (no code) Systolic: 04-11-2019 no n [facility] 74mm[Hg] 120 mm[Hg] 08:520500 ([id number]) Diastolic: 60 - 80 mm[Hg] Blood Pressure 144/ (H) Systolic: 04-10-2019 no na me [facility] 98mm[Hg] 120 mm[Hg] 04:52-0500 ([id number]) Diastolic: 60 - 80 mm[Hg] Blood Pressure 147/ (no code) Systolic: 04-09-2019 no n [facility] 70mm[Hg] 120 mm[Hg] 05:28-0500 ([id number]) Diastolic: 60 - 80 mm[Hg] Blood Pressure 147/ (no code) Systolic: 04-08-2019 no n [facility] 70mm[Hg] 120 mm[Hg] 06:55-0500 ([id number]) Diastolic: 60 - 80 mm[Hg] Blood Pressure 136/ (no code) Systolic: 04-06-2019 no n [facility] 61mm[Hg] 120 mm[Hg] 04:17-0500 ([id number]) Diastolic: 60 - 80 mm[Hg] Blood Pressure 141/ (no code) Systolic: 04-05-2019 no n [facility] 70mm[Hg] 120 mm[Hg] 07:45-0500 ([id number]) Diastolic: 60 - 80 mm[Hg] Blood Pressure 156/ (no code) Systolic: 04-04-2019 no n [facility] 74mm[Hg] 120 mm[Hg] 04:46-0500 ([id number]) Diastolic: 60 - 80 mm[Hg] Blood Pressure 153/ (no code) Systolic: 04-03-2019 no n [facility] 71mm[Hg] 120 mm[Hg] 04:22-0500 ([id number]) Diastolic: 60 - 80 mm[Hg] Blood Pressure 111/ (no code) Systolic: 04-02-2019 no n [facility] 52mm[Hg] 120 mm[Hg] 06:29-0500 ([id number]) Diastolic: 60 - 80 mm[Hg] Blood Pressure 150/ (no code) Systolic: 04-01-2019 no n [facility] 70mm[Hg] 120 mm[Hg] 04:50-0500 ([id number]) Diastolic: 60 - 80 mm[Hg] Blood Pressure 140/ (no code) Systolic: 03-31-2019 no n [facility] 73mm[Hg] 120 mm[Hg] 04:33-0500 ([id number]) Diastolic: 60 - 80 mm[Hg] Blood Pressure 154/ (no code) Systolic: 03-30-2019 no n [facility] 76mm[Hg] 120 mm[Hg] 04:44-0500 ([id number]) Diastolic: 60 - 80 mm[Hg] Blood Pressure 112/ (no code) Systolic: 03-29-2019 no n [facility] 67mm[Hg] 120 mm[Hg] 06:55-0500 ([id number]) Diastolic: 60 - 80 mm[Hg] Blood Pressure 164/ (H) Systolic: 03-28-2019 no na me [facility] 69mm[Hg] 120 mm[Hg] 06:42-0500 ([id number]) Diastolic: 60 - 80 mm[Hg] Blood Pressure 164/ (H) Systolic: 03-28-2019 no na me [facility] 69mm[Hg] 120 mm[Hg] 03:21-0500 ([id number]) Diastolic: 60 - 80 mm[Hg] Blood Pressure 150/ (no code) Systolic: 03-26-2019 no n [facility] 93mm[Hg] 120 mm[Hg] 04:19-0500 ([id number]) Diastolic: 60 - 80 mm[Hg] Blood Pressure 156/ (no code) Systolic: 03-25-2019 no n [facility] 68mm[Hg] 120 mm[Hg] 04:08-0500 ([id number]) Diastolic: 60 - 80 mm[Hg] Blood Pressure 136/ (no code) Systolic: 03-22-2019 no n [facility] 74mm[Hg] 120 mm[Hg] 07:34-0500 ([id number]) Diastolic: 60 - 80 mm[Hg] Blood Pressure 184/ (HH) Systolic: 03-22-2019 no na me [facility] 87mm[Hg] 120 mm[Hg] 07:32-0500 ([id number]) Diastolic: 60 - 80 mm[Hg] Blood Pressure 106/ (no code) Systolic: 03-21-2019 no n [facility] 51mm[Hg] 120 mm[Hg] 08:18-0500 ([id number]) Diastolic: 60 - 80 mm[Hg] Blood Pressure 152/ (no code) Systolic: 03-18-2019 no n [facility] 66mm[Hg] 120 mm[Hg] 04:05-0500 ([id number]) Diastolic: 60 - 80 mm[Hg] Blood Pressure 155/ (no code) Systolic: 03-15-2019 no n [facility] 71mm[Hg] 120 mm[Hg] 06:42-0500 ([id number]) Diastolic: 60 - 80 mm[Hg] Blood Pressure 125/ (no code) Systolic: 03-14-2019 no n [facility] 68mm[Hg] 120 mm[Hg] 09:10-0500 ([id number]) Diastolic: 60 - 80 mm[Hg] Blood Pressure 176/ (HH) Systolic: 03-13-2019 no na me [facility] 70mm[Hg] 120 mm[Hg] 04:19-0500 ([id number]) Diastolic: 60 - 80 mm[Hg] Blood Pressure 111/ (no code) Systolic: 03-12-2019 no n [facility] 55mm[Hg] 120 mm[Hg] 07:59-0500 ([id number]) Diastolic: 60 - 80 mm[Hg] Blood Pressure 126/ (no code) Systolic: 03-10-2019 no n [facility] 79mm[Hg] 120 mm[Hg] 06:09-0500 ([id number]) Diastolic: 60 - 80 mm[Hg] Blood Pressure 160/ (no code) Systolic: 03-09-2019 no n [facility] 68mm[Hg] 120 mm[Hg] 04:59-0500 ([id number]) Diastolic: 60 - 80 mm[Hg] Blood Pressure 176/ (HH) Systolic: 03-09-2019 no na [facility] 71mm[Hg] 120 mm[Hg] 04:56-0500 ([id number]) Diastolic: 60 - 80 mm[Hg] Blood Pressure 125/ (no code) Systolic: 03-08-2019 no n [facility] 71mm[Hg] 120 mm[Hg] 08:05-0500 ([id number]) Diastolic: 60 - 80 mm[Hg] Blood Pressure 148/ (no code) Systolic: 03-07-2019 no n [facility] 70mm[Hg] 120 mm[Hg] 07:16-0500 ([id number]) Diastolic: 60 - 80 mm[Hg] Blood Pressure 96/ (no code) Systolic: 03-05-2019 no n [facility] 57mm[Hg] 120 mm[Hg] 08:24-0500 ([id number]) Diastolic: 60 - 80 mm[Hg] Blood Pressure 79/ (LL) Systolic: 03-05-2019 no na me [facility] 52mm[Hg] 120 mm[Hg] 08:19-0500 ([id number]) Diastolic: 60 - 80 mm[Hg] Blood Pressure 130/ (no code) Systolic: 03-04-2019 no n [facility] 75mm[Hg] 120 mm[Hg] 05:32-0500 ([id number]) Diastolic: 60 - 80 mm[Hg] Blood Pressure 119/ (no code) Systolic: 03-02-2019 no n [facility] 61mm[Hg] 120 mm[Hg] 04:56-0500 ([id number]) Diastolic: 60 - 80 mm[Hg] Blood Pressure 119/ (no code) Systolic: 03-01-2019 no n [facility] 65mm[Hg] 120 mm[Hg] 08:18-0500 ([id number]) Diastolic: 60 - 80 mm[Hg] Blood Pressure 125/ (no code) Systolic: 02-28-2019 no n [facility] 69mm[Hg] 120 mm[Hg] 05:46-0500 ([id number]) Diastolic: 60 - 80 mm[Hg] Blood Pressure 119/ (no code) Systolic: 02-27-2019 no n [facility] 53mm[Hg] 120 mm[Hg] 03:31-0500 ([id number]) Diastolic: 60 - 80 mm[Hg] Blood Pressure 113/ (no code) Systolic: 02-24-2019 no n [facility] 61mm[Hg] 120 mm[Hg] 09:46-0500 ([id number]) Diastolic: 60 - 80 mm[Hg] Blood Pressure 146/ (no code) Systolic: 02-23-2019 no n [facility] 66mm[Hg] 120 mm[Hg] 06:24-0500 ([id number]) Diastolic: 60 - 80 mm[Hg] Blood Pressure 101/ (no code) Systolic: 02-22-2019 no n [facility] 78mm[Hg] 120 mm[Hg] 08:16-0500 ([id number]) Diastolic: 60 - 80 mm[Hg] Blood Pressure 123/ (no code) Systolic: 02-21-2019 no n [facility] 56mm[Hg] 120 mm[Hg] 09:55-0500 ([id number]) Diastolic: 60 - 80 mm[Hg] Blood Pressure 160/ (no code) Systolic: 02-19-2019 no n [facility] 74mm[Hg] 120 mm[Hg] 05:35-0500 ([id number]) Diastolic: 60 - 80 mm[Hg] Blood Pressure 111/ (no code) Systolic: 02-18-2019 no n [facility] 66mm[Hg] 120 mm[Hg] 04:47-0500 ([id number]) Diastolic: 60 - 80 mm[Hg] Blood Pressure 152/ (no code) Systolic: 02-17-2019 no n [facility] 79mm[Hg] 120 mm[Hg] 05:00-0500 ([id number]) Diastolic: 60 - 80 mm[Hg] Blood Pressure 140/ (no code) Systolic: 02-16-2019 no n [facility] 75mm[Hg] 120 mm[Hg] 04:53-0500 ([id number]) Diastolic: 60 - 80 mm[Hg] Blood Pressure 115/ (no code) Systolic: 02-15-2019 no n [facility] 67mm[Hg] 120 mm[Hg] 04:22-0500 ([id number]) Diastolic: 60 - 80 mm[Hg] Blood Pressure 92/ (no code) Systolic: 02-14-2019 no n [facility] 54mm[Hg] 120 mm[Hg] 04:47-0500 ([id number]) Diastolic: 60 - 80 mm[Hg] Blood Pressure 152/ (no code) Systolic: 02-13-2019 no n [facility] 69mm[Hg] 120 mm[Hg] 02:42-0500 ([id number]) Diastolic: 60 - 80 mm[Hg] Blood Pressure 134/ (no code) Systolic: 02-12-2019 no n [facility] 81mm[Hg] 120 mm[Hg] 03:22-0500 ([id number]) Diastolic: 60 - 80 mm[Hg] Blood Pressure 125/ (no code) Systolic: 02-11-2019 no n [facility] 80mm[Hg] 120 mm[Hg] 05:23-0500 ([id number]) Diastolic: 60 - 80 mm[Hg] Blood Pressure 92/ (no code) Systolic: 02-10-2019 no n [facility] 52mm[Hg] 120 mm[Hg] 11:04-0500 ([id number]) Diastolic: 60 - 80 mm[Hg] Blood Pressure 92/ (no code) Systolic: 02-09-2019 no n [facility] 52mm[Hg] 120 mm[Hg] 05:08-0500 ([id number]) Diastolic: 60 - 80 mm[Hg] Blood Pressure 122/ (no code) Systolic: 02-08-2019 no n [facility] 64mm[Hg] 120 mm[Hg] 06:58-0500 ([id number]) Diastolic: 60 - 80 mm[Hg] Blood Pressure 156/ (no code) Systolic: 02-07-2019 no n [facility] 69mm[Hg] 120 mm[Hg] 04:25-0500 ([id number]) Diastolic: 60 - 80 mm[Hg] Blood Pressure 168/ (H) Systolic: 02-06-2019 no na me [facility] 68mm[Hg] 120 mm[Hg] 03:40-0500 ([id number]) Diastolic: 60 - 80 mm[Hg] Blood Pressure 138/ (no code) Systolic: 02-05-2019 no n [facility] 60mm[Hg] 120 mm[Hg] 04:26-0500 ([id number]) Diastolic: 60 - 80 mm[Hg] Blood Pressure 159/ (no code) Systolic: 02-04-2019 no n [facility] 69mm[Hg] 120 mm[Hg] 05:20-0500 ([id number]) Diastolic: 60 - 80 mm[Hg] Blood Pressure 159/ (no code) Systolic: 02-04-2019 no n [facility] 69mm[Hg] 120 mm[Hg] 03:21-0500 ([id number]) Diastolic: 60 - 80 mm[Hg] Blood Pressure 163/ (H) Systolic: 02-02-2019 no na me [facility] 72mm[Hg] 120 mm[Hg] 07:08-0500 ([id number]) Diastolic: 60 - 80 mm[Hg] Blood Pressure 155/ (no code) Systolic: 02-01-2019 no n [facility] 84mm[Hg] 120 mm[Hg] 04:42-0500 ([id number]) Diastolic: 60 - 80 mm[Hg] Blood Pressure 136/ (no code) Systolic: 01-31-2019 no n [facility] 74mm[Hg] 120 mm[Hg] 08:110500 ([id number]) Diastolic: 60 - 80 mm[Hg] Blood Pressure 136/ (no code) Systolic: 01-29-2019 no n [facility] 74mm[Hg] 120 mm[Hg] 03:50-0500 ([id number]) Diastolic: 60 - 80 mm[Hg] Blood Pressure 139/ (no code) Systolic: 01-28-2019 no n [facility] 68mm[Hg] 120 mm[Hg] 03:12-0500 ([id number]) Diastolic: 60 - 80 mm[Hg] Blood Pressure 156/ (no code) Systolic: 01-26-2019 no n [facility] 80mm[Hg] 120 mm[Hg] 05:04-0500 ([id number]) Diastolic: 60 - 80 mm[Hg] Blood Pressure 139/ (no code) Systolic: 01-25-2019 no n [facility] 71mm[Hg] 120 mm[Hg] 07:39-0500 ([id number]) Diastolic: 60 - 80 mm[Hg] Blood Pressure 131/ (no code) Systolic: 01-24-2019 no n [facility] 63mm[Hg] 120 mm[Hg] 05:34-0500 ([id number]) Diastolic: 60 - 80 mm[Hg] Blood Pressure 153/ (no code) Systolic: 01-23-2019 no n [facility] 72mm[Hg] 120 mm[Hg] 04:06-0500 ([id number]) Diastolic: 60 - 80 mm[Hg] Blood Pressure 134/ (no code) Systolic: 01-22-2019 no n [facility] 68mm[Hg] 120 mm[Hg] 05:56-0400 ([id number]) Diastolic: 60 - 80 mm[Hg] Blood Pressure 92/ (no code) Systolic: 01-21-2019 no n [facility] 53mm[Hg] 120 mm[Hg] 05:17-0400 ([id number]) Diastolic: 60 - 80 mm[Hg] Blood Pressure 157/ (no code) Systolic: 01-19-2019 no n [facility] 76mm[Hg] 120 mm[Hg] 06:19-0400 ([id number]) Diastolic: 60 - 80 mm[Hg] Blood Pressure 100/ (no code) Systolic: 01-18-2019 no n [facility] 50mm[Hg] 120 mm[Hg] 08:49-0400 ([id number]) Diastolic: 60 - 80 mm[Hg] Blood Pressure 170/ (HH) Systolic: 01-18-2019 no na me [facility] 70mm[Hg] 120 mm[Hg] 08:46-0400 ([id number]) Diastolic: 60 - 80 mm[Hg] Blood Pressure 164/ (H) Systolic: 01-17-2019 no na me [facility] 71mm[Hg] 120 mm[Hg] 12:11-0400 ([id number]) Diastolic: 60 - 80 mm[Hg] Blood Pressure 164/ (H) Systolic: 01-17-2019 no na me [facility] 71mm[Hg] 120 mm[Hg] 09:23-0400 ([id number]) Diastolic: 60 - 80 mm[Hg] Blood Pressure 164/ (H) Systolic: 01-16-2019 no na me [facility] 69mm[Hg] 120 mm[Hg] 10:18-0400 ([id number]) Diastolic: 60 - 80 mm[Hg] Blood Pressure 138/ (no code) Systolic: 01-15-2019 no n [facility] 74mm[Hg] 120 mm[Hg] 14:230400 ([id number]) Diastolic: 60 - 80 mm[Hg] Blood Pressure 138/ (no code) Systolic: 01-15-2019 no n [facility] 74mm[Hg] 120 mm[Hg] 10:0400 ([id number]) Diastolic: 60 - 80 mm[Hg] Blood Pressure 137/ (no code) Systolic: 01-14-2019 no n [facility] 67mm[Hg] 120 mm[Hg] 10:0400 ([id number]) Diastolic: 60 - 80 mm[Hg] Blood Pressure 140/ (no code) Systolic: 01-13-2019 no n [facility] 64mm[Hg] 120 mm[Hg] 11:0400 ([id number]) Diastolic: 60 - 80 mm[Hg] Blood Pressure 113/ (no code) Systolic: 01-12-2019 no n [facility] 66mm[Hg] 120 mm[Hg] 10:0400 ([id number]) Diastolic: 60 - 80 mm[Hg] Blood Pressure 143/ (no code) Systolic: 01-11-2019 no n [facility] 72mm[Hg] 120 mm[Hg] 11:0400 ([id number]) Diastolic: 60 - 80 mm[Hg] Blood Pressure 143/ (no code) Systolic: 01-11-2019 no n [facility] 72mm[Hg] 120 mm[Hg] 09:410400 ([id number]) Diastolic: 60 - 80 mm[Hg] Blood Pressure 158/ (no code) Systolic: 01-10-2019 no n [facility] 70mm[Hg] 120 mm[Hg] 10:57-0400 ([id number]) Diastolic: 60 - 80 mm[Hg] Blood Pressure 143/ (no code) Systolic: 01-09-2019 no n [facility] 72mm[Hg] 120 mm[Hg] 10:040400 ([id number]) Diastolic: 60 - 80 mm[Hg] Blood Pressure 155/ (no code) Systolic: 01-08-2019 no n [facility] 68mm[Hg] 120 mm[Hg] 10:42-0400 ([id number]) Diastolic: 60 - 80 mm[Hg] Blood Pressure 140/ (no code) Systolic: 01-07-2019 no n [facility] 53mm[Hg] 120 mm[Hg] 10:39-0400 ([id number]) Diastolic: 60 - 80 mm[Hg] Blood Pressure 136/ (no code) Systolic: 01-06-2019 no n [facility] 66mm[Hg] 120 mm[Hg] 12:59-0400 ([id number]) Diastolic: 60 - 80 mm[Hg] Blood Pressure 105/ (no code) Systolic: 01-05-2019 no n [facility] 55mm[Hg] 120 mm[Hg] 15:44-0400 ([id number]) Diastolic: 60 - 80 mm[Hg] Blood Pressure 136/ (no code) Systolic: 01-05-2019 no n [facility] 66mm[Hg] 120 mm[Hg] 10:09-0400 ([id number]) Diastolic: 60 - 80 mm[Hg] Blood Pressure 110/ (no code) Systolic: 01-04-2019 no n [facility] 57mm[Hg] 120 mm[Hg] 12:18-0400 ([id number]) Diastolic: 60 - 80 mm[Hg] Blood Pressure 149/ (no code) Systolic: 01-03-2019 no n [facility] 65mm[Hg] 120 mm[Hg] 10:48-0400 ([id number]) Diastolic: 60 - 80 mm[Hg] Blood Pressure 129/ (no code) Systolic: 01-02-2019 no n [facility] 75mm[Hg] 120 mm[Hg] 13:42-0400 ([id number]) Diastolic: 60 - 80 mm[Hg] Blood Pressure 139/ (no code) Systolic: 01-01-2019 no n [facility] 75mm[Hg] 120 mm[Hg] 11:16-0400 ([id number]) Diastolic: 60 - 80 mm[Hg] Blood Pressure 144/ (no code) Systolic: 12-31-2018 no n [facility] 78mm[Hg] 120 mm[Hg] 11:22-0400 ([id number]) Diastolic: 60 - 80 mm[Hg] Blood Pressure 141/ (no code) Systolic: 12-30-2018 no n [facility] 63mm[Hg] 120 mm[Hg] 10:18-0400 ([id number]) Diastolic: 60 - 80 mm[Hg] Blood Pressure 123/ (no code) Systolic: 12-29-2018 no n [facility] 57mm[Hg] 120 mm[Hg] 10:030400 ([id number]) Diastolic: 60 - 80 mm[Hg] Blood Pressure 96/ (L) Systolic: 12-28-2018 no na me [facility] 47mm[Hg] 120 mm[Hg] 16:07-0400 ([id number]) Diastolic: 60 - 80 mm[Hg] Blood Pressure 74/ (LL,L) Systolic: 12-28-2018 no na me [facility] 42mm[Hg] 120 mm[Hg] 14:50-0400 ([id number]) Diastolic: 60 - 80 mm[Hg] Blood Pressure 82/ (LL) Systolic: 12-28-2018 no na me [facility] 53mm[Hg] 120 mm[Hg] 14:48-0400 ([id number]) Diastolic: 60 - 80 mm[Hg] Blood Pressure 109/ (no code) Systolic: 12-27-2018 no n [facility] 50mm[Hg] 120 mm[Hg] 13:18-0400 ([id number]) Diastolic: 60 - 80 mm[Hg] Blood Pressure 85/ (LL,L) Systolic: 12-27-2018 no na me [facility] 47mm[Hg] 120 mm[Hg] 13:14-0400 ([id number]) Diastolic: 60 - 80 mm[Hg] Blood Pressure 144/ (no code) Systolic: 12-26-2018 no n [facility] 95mm[Hg] 120 mm[Hg] 09:04-0400 ([id number]) Diastolic: 60 - 80 mm[Hg] Blood Pressure 114/ (no code) Systolic: 12-25-2018 no n lashonda [facility] 54mm[Hg] 120 mm[Hg] 13:090400 ([id number]) Diastolic: 60 - 80 mm[Hg] Blood Pressure 144/ (H) Systolic: 12-25-2018 no na me [facility] 96mm[Hg] 120 mm[Hg] 11:080400 ([id number]) Diastolic: 60 - 80 mm[Hg] Blood Pressure 150/ (no code) Systolic: 12-24-2018 no n lashonda [facility] 63mm[Hg] 120 mm[Hg] 11:310400 ([id number]) Diastolic: 60 - 80 mm[Hg] Blood Pressure 151/ (no code) Systolic: 12-23-2018 no n lashonda [facility] 66mm[Hg] 120 mm[Hg] 10:59-0400 ([id number]) Diastolic: 60 - 80 mm[Hg] Blood Pressure 160/ (no code) Systolic: 12-22-2018 no n lashonda [facility] 64mm[Hg] 120 mm[Hg] 10:52-0400 ([id number]) Diastolic: 60 - 80 mm[Hg] Blood Pressure 155/ (no code) Systolic: 12-21-2018 no n lashonda [facility] 59mm[Hg] 120 mm[Hg] 10:36-0400 ([id number]) Diastolic: 60 - 80 mm[Hg] Blood Pressure 152/ (no code) Systolic: 12-20-2018 no n lashonda [facility] 66mm[Hg] 120 mm[Hg] 10:23-0400 ([id number]) Diastolic: 60 - 80 mm[Hg] Blood Pressure 140/ (no code) Systolic: 12-19-2018 no n lashonda [facility] 65mm[Hg] 120 mm[Hg] 09:430400 ([id number]) Diastolic: 60 - 80 mm[Hg] Blood Pressure 104/ (no code) Systolic: 12-18-2018 no n lashonda [facility] 62mm[Hg] 120 mm[Hg] 11:53-0400 ([id number]) Diastolic: 60 - 80 mm[Hg] Blood Pressure 92/ (no code) Systolic: 12-17-2018 no n lashonda [facility] 59mm[Hg] 120 mm[Hg] 17:05-0400 ([id number]) Diastolic: 60 - 80 mm[Hg] Blood Pressure 102/ (no code) Systolic: 12-17-2018 no n lashonda [facility] 60mm[Hg] 120 mm[Hg] 12:08-0400 ([id number]) Diastolic: 60 - 80 mm[Hg] Blood Pressure 152/ (no code) Systolic: 12-15-2018 no n lashonda [facility] 61mm[Hg] 120 mm[Hg] 10:19-0400 ([id number]) Diastolic: 60 - 80 mm[Hg] Blood Pressure 156/ (no code) Systolic: 12-14-2018 no n lashonda [facility] 71mm[Hg] 120 mm[Hg] 12:18-0400 ([id number]) Diastolic: 60 - 80 mm[Hg] Blood Pressure 180/ (HH) Systolic: 12-14-2018 no na me [facility] 67mm[Hg] 120 mm[Hg] 10:26-0400 ([id number]) Diastolic: 60 - 80 mm[Hg] Blood Pressure 168/ (H) Systolic: 12-13-2018 no na me [facility] 72mm[Hg] 120 mm[Hg] 10:29-0400 ([id number]) Diastolic: 60 - 80 mm[Hg] Blood Pressure 134/ (no code) Systolic: 12-12-2018 no n lashonda [facility] 71mm[Hg] 120 mm[Hg] 10:15-0400 ([id number]) Diastolic: 60 - 80 mm[Hg] Blood Pressure 134/ (no code) Systolic: 12-11-2018 no n lashonda [facility] 71mm[Hg] 120 mm[Hg] 09:44-0400 ([id number]) Diastolic: 60 - 80 mm[Hg] Blood Pressure 140/ (no code) Systolic: 12-10-2018 no n lashonda [facility] 62mm[Hg] 120 mm[Hg] 12:08-0400 ([id number]) Diastolic: 60 - 80 mm[Hg] Blood Pressure 141/ (no code) Systolic: 12-09-2018 no n lashonda [facility] 67mm[Hg] 120 mm[Hg] 11:280400 ([id number]) Diastolic: 60 - 80 mm[Hg] Blood Pressure 93/ (L) Systolic: 12-08-2018 no na me [facility] 48mm[Hg] 120 mm[Hg] 10:410400 ([id number]) Diastolic: 60 - 80 mm[Hg] Blood Pressure 122/ (no code) Systolic: 12-07-2018 no n lashonda [facility] 91mm[Hg] 120 mm[Hg] 11:290400 ([id number]) Diastolic: 60 - 80 mm[Hg] Blood Pressure 148/ (no code) Systolic: 12-06-2018 no n lashonda [facility] 63mm[Hg] 120 mm[Hg] 11:0400 ([id number]) Diastolic: 60 - 80 mm[Hg] Blood Pressure 118/ (no code) Systolic: 12-04-2018 no n lash[facility] 67mm[Hg] 120 mm[Hg] 10:290400 ([id number]) Diastolic: 60 - 80 mm[Hg] Blood Pressure 153/ (no code) Systolic: 12-03-2018 no n lashonda [facility] 75mm[Hg] 120 mm[Hg] 12:350400 ([id number]) Diastolic: 60 - 80 mm[Hg] Blood Pressure 153/ (no code) Systolic: 12-03-2018 no n lash[facility] 75mm[Hg] 120 mm[Hg] 10:030400 ([id number]) Diastolic: 60 - 80 mm[Hg] Blood Pressure 155/ (no code) Systolic: 12-02-2018 no n lash[facility] 71mm[Hg] 120 mm[Hg] 11:020400 ([id number]) Diastolic: 60 - 80 mm[Hg] Blood Pressure 155/ (no code) Systolic: 12-01-2018 no n lash[facility] 71mm[Hg] 120 mm[Hg] 11:380400 ([id number]) Diastolic: 60 - 80 mm[Hg] Blood Pressure 159/ (no code) Systolic: 11-30-2018 no n lash[facility] 70mm[Hg] 120 mm[Hg] 09:23-0400 ([id number]) Diastolic: 60 - 80 mm[Hg] Blood Pressure 158/ (no code) Systolic: 11-29-2018 no n lashonda [facility] 69mm[Hg] 120 mm[Hg] 11:24-0400 ([id number]) Diastolic: 60 - 80 mm[Hg] Blood Pressure 137/ (no code) Systolic: 11-28-2018 no n lashonda [facility] 82mm[Hg] 120 mm[Hg] 09:37-0400 ([id number]) Diastolic: 60 - 80 mm[Hg] Blood Pressure 146/ (no code) Systolic: 11-27-2018 no n lashonda [facility] 60mm[Hg] 120 mm[Hg] 09:52-0400 ([id number]) Diastolic: 60 - 80 mm[Hg] Blood Pressure 145/ (no code) Systolic: 11-26-2018 no n lashonda [facility] 65mm[Hg] 120 mm[Hg] 10:060400 ([id number]) Diastolic: 60 - 80 mm[Hg] Blood Pressure 173/ (HH) Systolic: 11-25-2018 no na me [facility] 79mm[Hg] 120 mm[Hg] 10:25-0400 ([id number]) Diastolic: 60 - 80 mm[Hg] Blood Pressure 112/ (L) Systolic: 11-24-2018 no na me [facility] 49mm[Hg] 120 mm[Hg] 14:10-0400 ([id number]) Diastolic: 60 - 80 mm[Hg] Blood Pressure 120/ (no code) Systolic: 11-24-2018 no n lash[facility] 68mm[Hg] 120 mm[Hg] 09:59-0400 ([id number]) Diastolic: 60 - 80 mm[Hg] Blood Pressure 149/ (no code) Systolic: 11-23-2018 no n lash[facility] 57mm[Hg] 120 mm[Hg] 10:45-0400 ([id number]) Diastolic: 60 - 80 mm[Hg] Blood Pressure 128/ (no code) Systolic: 11-21-2018 no n lash[facility] 92mm[Hg] 120 mm[Hg] 10:48-0400 ([id number]) Diastolic: 60 - 80 mm[Hg] Blood Pressure 140/ (no code) Systolic: 11-20-2018 no n lash[facility] 69mm[Hg] 120 mm[Hg] 10:03-0400 ([id number]) Diastolic: 60 - 80 mm[Hg] Blood Pressure 132/ (no code) Systolic: 11-19-2018 no n lashonda [facility] 65mm[Hg] 120 mm[Hg] 11:16-0400 ([id number]) Diastolic: 60 - 80 mm[Hg] Blood Pressure 132/ (no code) Systolic: 11-18-2018 no n lashonda [facility] 65mm[Hg] 120 mm[Hg] 10:02-0400 ([id number]) Diastolic: 60 - 80 mm[Hg] Blood Pressure 124/ (no code) Systolic: 11-17-2018 no n lashonda [facility] 55mm[Hg] 120 mm[Hg] 10:040400 ([id number]) Diastolic: 60 - 80 mm[Hg] Blood Pressure 108/ (no code) Systolic: 11-16-2018 no n lash[facility] 65mm[Hg] 120 mm[Hg] 14:020400 ([id number]) Diastolic: 60 - 80 mm[Hg] Blood Pressure 151/ (no code) Systolic: 11-15-2018 no n lash[facility] 58mm[Hg] 120 mm[Hg] 17:53-0400 ([id number]) Diastolic: 60 - 80 mm[Hg] Blood Pressure 143/ (no code) Systolic: 11-14-2018 no n lash[facility] 66mm[Hg] 120 mm[Hg] 10:18-0400 ([id number]) Diastolic: 60 - 80 mm[Hg] Blood Pressure 140/ (no code) Systolic: 11-13-2018 no n lash[facility] 77mm[Hg] 120 mm[Hg] 10:090400 ([id number]) Diastolic: 60 - 80 mm[Hg] Blood Pressure 140/ (no code) Systolic: 11-12-2018 no n lash[facility] 77mm[Hg] 120 mm[Hg] 09:270400 ([id number]) Diastolic: 60 - 80 mm[Hg] Blood Pressure 133/ (no code) Systolic: 11-11-2018 no n lash[facility] 85mm[Hg] 120 mm[Hg] 10:080400 ([id number]) Diastolic: 60 - 80 mm[Hg] Blood Pressure 131/ (no code) Systolic: 11-10-2018 no n lashonda [facility] 57mm[Hg] 120 mm[Hg] 14:020400 ([id number]) Diastolic: 60 - 80 mm[Hg] Blood Pressure 131/ (no code) Systolic: 11-10-2018 no n lash[facility] 57mm[Hg] 120 mm[Hg] 09:17040 ([id number]) Diastolic: 60 - 80 mm[Hg] Blood Pressure 133/ (no code) Systolic: 11-09-2018 no n lashonda [facility] 69mm[Hg] 120 mm[Hg] 10:590400 ([id number]) Diastolic: 60 - 80 mm[Hg] Blood Pressure 132/ (no code) Systolic: 11-08-2018 no n lashonda [facility] 66mm[Hg] 120 mm[Hg] 10:330400 ([id number]) Diastolic: 60 - 80 mm[Hg] Blood Pressure 152/ (no code) Systolic: 11-06-2018 no n lashonda [facility] 74mm[Hg] 120 mm[Hg] 11:280400 ([id number]) Diastolic: 60 - 80 mm[Hg] Blood Pressure 172/ (HH) Systolic: 11-06-2018 no na me [facility] 78mm[Hg] 120 mm[Hg] 11:170400 ([id number]) Diastolic: 60 - 80 mm[Hg] Blood Pressure 150/ (no code) Systolic: 11-05-2018 no n lash[facility] 74mm[Hg] 120 mm[Hg] 17:190400 ([id number]) Diastolic: 60 - 80 mm[Hg] Blood Pressure 174/ (HH) Systolic: 11-05-2018 no na me [facility] 66mm[Hg] 120 mm[Hg] 10:32-0400 ([id number]) Diastolic: 60 - 80 mm[Hg] Blood Pressure 164/ (H) Systolic: 11-04-2018 no na me [facility] 73mm[Hg] 120 mm[Hg] 10:10-0400 ([id number]) Diastolic: 60 - 80 mm[Hg] Blood Pressure 160/ (no code) Systolic: 11-03-2018 no n lash[facility] 82mm[Hg] 120 mm[Hg] 10:00-0400 ([id number]) Diastolic: 60 - 80 mm[Hg] Blood Pressure 157/ (no code) Systolic: 11-01-2018 no n lashodna [facility] 77mm[Hg] 120 mm[Hg] 10:00-0400 ([id number]) Diastolic: 60 - 80 mm[Hg] Blood Pressure 107/ (no code) Systolic: 10-31-2018 no n lash[facility] 73mm[Hg] 120 mm[Hg] 10:00-0400 ([id number]) Diastolic: 60 - 80 mm[Hg] Blood Pressure 118/ (no code) Systolic: 10-29-2018 no n lash[facility] 54mm[Hg] 120 mm[Hg] 10:52-0400 ([id number]) Diastolic: 60 - 80 mm[Hg] Blood Pressure 143/ (no code) Systolic: 10-28-2018 no n lash[facility] 57mm[Hg] 120 mm[Hg] 08:54-0400 ([id number]) Diastolic: 60 - 80 mm[Hg] Blood Pressure 112/ (L) Systolic: 10-27-2018 no na me [facility] 47mm[Hg] 120 mm[Hg] 18:49-0400 ([id number]) Diastolic: 60 - 80 mm[Hg] Blood Pressure 157/ (no code) Systolic: 10-26-2018 no n lashonda [facility] 77mm[Hg] 120 mm[Hg] 14:47-0400 ([id number]) Diastolic: 60 - 80 mm[Hg] Blood Pressure 176/ (HH) Systolic: 10-26-2018 no na me [facility] 77mm[Hg] 120 mm[Hg] 09:30-0400 ([id number]) Diastolic: 60 - 80 mm[Hg] Blood Pressure 107/ (no code) Systolic: 10-25-2018 no n lashonda [facility] 73mm[Hg] 120 mm[Hg] 11:050400 ([id number]) Diastolic: 60 - 80 mm[Hg] Blood Pressure 153/ (no code) Systolic: 10-24-2018 no n lashonda [facility] 76mm[Hg] 120 mm[Hg] 09:25-0400 ([id number]) Diastolic: 60 - 80 mm[Hg] Blood Pressure 160/ (no code) Systolic: 10-23-2018 no n lashonda [facility] 71mm[Hg] 120 mm[Hg] 10:44-0400 ([id number]) Diastolic: 60 - 80 mm[Hg] Blood Pressure 143/ (no code) Systolic: 10-22-2018 no n lashonda [facility] 76mm[Hg] 120 mm[Hg] 11:200400 ([id number]) Diastolic: 60 - 80 mm[Hg] Blood Pressure 149/ (no code) Systolic: 10-21-2018 no n lashonda [facility] 69mm[Hg] 120 mm[Hg] 10:47-0400 ([id number]) Diastolic: 60 - 80 mm[Hg] Blood Pressure 138/ (HH) Systolic: 10-21-2018 no na me [facility] 102mm[Hg] 120 mm[Hg] 10:42-0400 ([id number]) Diastolic: 60 - 80 mm[Hg] Blood Pressure 139/ (no code) Systolic: 10-20-2018 no n lash[facility] 61mm[Hg] 120 mm[Hg] 10:100400 ([id number]) Diastolic: 60 - 80 mm[Hg] Blood Pressure 107/ (no code) Systolic: 10-19-2018 no n lashonda [facility] 50mm[Hg] 120 mm[Hg] 14:210400 ([id number]) Diastolic: 60 - 80 mm[Hg] Blood Pressure 172/ (HH,HH) Systolic: 10-19-2018 no na me [facility] 101mm[Hg] 120 mm[Hg] 09:56-0400 ([id number]) Diastolic: 60 - 80 mm[Hg] Blood Pressure 165/ (H) Systolic: 10-18-2018 no na me [facility] 69mm[Hg] 120 mm[Hg] 11:0400 ([id number]) Diastolic: 60 - 80 mm[Hg] Blood Pressure 142/ (no code) Systolic: 10-17-2018 no n lashonda [facility] 71mm[Hg] 120 mm[Hg] 10:0400 ([id number]) Diastolic: 60 - 80 mm[Hg] Blood Pressure 170/ (HH) Systolic: 10-16-2018 no na me [facility] 64mm[Hg] 120 mm[Hg] 10:480400 ([id number]) Diastolic: 60 - 80 mm[Hg] Blood Pressure 132/ (H) Systolic: 10-15-2018 no na me [facility] 98mm[Hg] 120 mm[Hg] 10:360400 ([id number]) Diastolic: 60 - 80 mm[Hg] Blood Pressure 148/ (no code) Systolic: 10-14-2018 no n lash[facility] 71mm[Hg] 120 mm[Hg] 10:0400 ([id number]) Diastolic: 60 - 80 mm[Hg] Blood Pressure 152/ (no code) Systolic: 10-13-2018 no n lashonda [facility] 64mm[Hg] 120 mm[Hg] 10:0 ([id number]) Diastolic: 60 - 80 mm[Hg] Blood Pressure 144/ (no code) Systolic: 10-12-2018 no n lashonda [facility] 60mm[Hg] 120 mm[Hg] 10:0400 ([id number]) Diastolic: 60 - 80 mm[Hg] Blood Pressure 146/ (no code) Systolic: 10-11-2018 no n lashonda [facility] 72mm[Hg] 120 mm[Hg] 10:0400 ([id number]) Diastolic: 60 - 80 mm[Hg] Blood Pressure 152/ (no code) Systolic: 10-10-2018 no n lashonda [facility] 61mm[Hg] 120 mm[Hg] 10:0400 ([id number]) Diastolic: 60 - 80 mm[Hg] Blood Pressure 157/ (no code) Systolic: 10-09-2018 no n lashonda [facility] 71mm[Hg] 120 mm[Hg] 10:54-0400 ([id number]) Diastolic: 60 - 80 mm[Hg] Blood Pressure 170/ (HH) Systolic: 10-09-2018 no na me [facility] 67mm[Hg] 120 mm[Hg] 10:52-0400 ([id number]) Diastolic: 60 - 80 mm[Hg] Blood Pressure 154/ (no code) Systolic: 10-08-2018 no n lashonda [facility] 73mm[Hg] 120 mm[Hg] 10:26-0400 ([id number]) Diastolic: 60 - 80 mm[Hg] Blood Pressure 143/ (no code) Systolic: 10-07-2018 no n lashonda [facility] 75mm[Hg] 120 mm[Hg] 11:080400 ([id number]) Diastolic: 60 - 80 mm[Hg] Blood Pressure 143/ (no code) Systolic: 10-07-2018 no n lashonda [facility] 75mm[Hg] 120 mm[Hg] 09:460400 ([id number]) Diastolic: 60 - 80 mm[Hg] Blood Pressure 148/ (no code) Systolic: 10-05-2018 no n lashonda [facility] 68mm[Hg] 120 mm[Hg] 10:200400 ([id number]) Diastolic: 60 - 80 mm[Hg] Blood Pressure 140/ (no code) Systolic: 10-04-2018 no n lashonda [facility] 66mm[Hg] 120 mm[Hg] 10:050400 ([id number]) Diastolic: 60 - 80 mm[Hg] Blood Pressure 148/ (no code) Systolic: 10-03-2018 no n lashonda [facility] 70mm[Hg] 120 mm[Hg] 09:57-0400 ([id number]) Diastolic: 60 - 80 mm[Hg] Blood Pressure 166/ (H) Systolic: 10-02-2018 no na me [facility] 72mm[Hg] 120 mm[Hg] 10:51-0400 ([id number]) Diastolic: 60 - 80 mm[Hg] Blood Pressure 141/ (no code) Systolic: 10-01-2018 no n lashonda [facility] 64mm[Hg] 120 mm[Hg] 10:11-0400 ([id number]) Diastolic: 60 - 80 mm[Hg] Blood Pressure 149/ (no code) Systolic: 09-30-2018 no n lashonda [facility] 69mm[Hg] 120 mm[Hg] 11:170400 ([id number]) Diastolic: 60 - 80 mm[Hg] Blood Pressure 149/ (no code) Systolic: 09-30-2018 no n lashonda [facility] 69mm[Hg] 120 mm[Hg] 09:510400 ([id number]) Diastolic: 60 - 80 mm[Hg] Blood Pressure 151/ (no code) Systolic: 09-29-2018 no n lashonda [facility] 63mm[Hg] 120 mm[Hg] 11:040 ([id number]) Diastolic: 60 - 80 mm[Hg] Blood Pressure 140/ (no code) Systolic: 09-28-2018 no n lashonda [facility] 65mm[Hg] 120 mm[Hg] 09:13040 ([id number]) Diastolic: 60 - 80 mm[Hg] Blood Pressure 152/ (no code) Systolic: 09-27-2018 no n lashonda [facility] 69mm[Hg] 120 mm[Hg] 10:370400 ([id number]) Diastolic: 60 - 80 mm[Hg] Blood Pressure 154/ (no code) Systolic: 09-26-2018 no n lashonda [facility] 57mm[Hg] 120 mm[Hg] 09:04040 ([id number]) Diastolic: 60 - 80 mm[Hg] Blood Pressure 157/ (no code) Systolic: 09-25-2018 no n lashonda [facility] 71mm[Hg] 120 mm[Hg] 10:040 ([id number]) Diastolic: 60 - 80 mm[Hg] Blood Pressure 157/ (no code) Systolic: 09-24-2018 no n lashonda [facility] 77mm[Hg] 120 mm[Hg] 10:210400 ([id number]) Diastolic: 60 - 80 mm[Hg] Blood Pressure 158/ (no code) Systolic: 09-22-2018 no n lashonda [facility] 65mm[Hg] 120 mm[Hg] 12:08-0400 ([id number]) Diastolic: 60 - 80 mm[Hg] Blood Pressure 139/ (no code) Systolic: 09-21-2018 no n lash[facility] 57mm[Hg] 120 mm[Hg] 10:02-0400 ([id number]) Diastolic: 60 - 80 mm[Hg] Blood Pressure 93/ (no code) Systolic: 09-20-2018 no n lash[facility] 51mm[Hg] 120 mm[Hg] 11:32-0400 ([id number]) Diastolic: 60 - 80 mm[Hg] Blood Pressure 64/ (LL,L) Systolic: 09-20-2018 no na me [facility] 47mm[Hg] 120 mm[Hg] 11:31-0400 ([id number]) Diastolic: 60 - 80 mm[Hg] Blood Pressure 149/ (no code) Systolic: 09-18-2018 no n lash[facility] 75mm[Hg] 120 mm[Hg] 11:16-0400 ([id number]) Diastolic: 60 - 80 mm[Hg] Blood Pressure 149/ (no code) Systolic: 09-18-2018 no n lashonda [facility] 75mm[Hg] 120 mm[Hg] 09:56-0400 ([id number]) Diastolic: 60 - 80 mm[Hg] Blood Pressure 118/ (no code) Systolic: 09-17-2018 no n lashonda [facility] 51mm[Hg] 120 mm[Hg] 10:49-0400 ([id number]) Diastolic: 60 - 80 mm[Hg] Blood Pressure 138/ (no code) Systolic: 09-16-2018 no n lashonda [facility] 58mm[Hg] 120 mm[Hg] 10:020400 ([id number]) Diastolic: 60 - 80 mm[Hg] Blood Pressure 120/ (no code) Systolic: 09-15-2018 no n lash[facility] 69mm[Hg] 120 mm[Hg] 12:44-0400 ([id number]) Diastolic: 60 - 80 mm[Hg] Blood Pressure 120/ (no code) Systolic: 09-15-2018 no n lashonda [facility] 69mm[Hg] 120 mm[Hg] 09:58-0400 ([id number]) Diastolic: 60 - 80 mm[Hg] Blood Pressure 137/ (no code) Systolic: 09-14-2018 no n lashonda [facility] 58mm[Hg] 120 mm[Hg] 10:290400 ([id number]) Diastolic: 60 - 80 mm[Hg] Blood Pressure 128/ (no code) Systolic: 09-13-2018 no n lash[facility] 66mm[Hg] 120 mm[Hg] 13:460400 ([id number]) Diastolic: 60 - 80 mm[Hg] Blood Pressure 128/ (no code) Systolic: 09-13-2018 no n lash[facility] 66mm[Hg] 120 mm[Hg] 09:560400 ([id number]) Diastolic: 60 - 80 mm[Hg] Blood Pressure 132/ (no code) Systolic: 09-12-2018 no n lash[facility] 91mm[Hg] 120 mm[Hg] 09:0400 ([id number]) Diastolic: 60 - 80 mm[Hg] Blood Pressure 139/ (no code) Systolic: 09-11-2018 no n lashonda [facility] 65mm[Hg] 120 mm[Hg] 10:160400 ([id number]) Diastolic: 60 - 80 mm[Hg] Blood Pressure 124/ (no code) Systolic: 09-10-2018 no n lashonda [facility] 64mm[Hg] 120 mm[Hg] 10:0400 ([id number]) Diastolic: 60 - 80 mm[Hg] Blood Pressure 129/ (no code) Systolic: 09-09-2018 no n lash[facility] 71mm[Hg] 120 mm[Hg] 10:260400 ([id number]) Diastolic: 60 - 80 mm[Hg] Blood Pressure 148/ (no code) Systolic: 09-08-2018 no n lash[facility] 56mm[Hg] 120 mm[Hg] 10:0400 ([id number]) Diastolic: 60 - 80 mm[Hg] Blood Pressure 130/ (no code) Systolic: 09-07-2018 no n lash[facility] 65mm[Hg] 120 mm[Hg] 10:170400 ([id number]) Diastolic: 60 - 80 mm[Hg] Blood Pressure 129/ (no code) Systolic: 2018 no n lash[facility] 51mm[Hg] 120 mm[Hg] 11: ([id number]) Diastolic: 60 - 80 mm[Hg] Blood Pressure 132/ (no code) Systolic: 09-04-2018 no n lash[facility] 65mm[Hg] 120 mm[Hg] 10:0400 ([id number]) Diastolic: 60 - 80 mm[Hg] Blood Pressure 139/ (no code) Systolic: 09-03-2018 no n lash[facility] 77mm[Hg] 120 mm[Hg] 12:040 ([id number]) Diastolic: 60 - 80 mm[Hg] Blood Pressure 158/ (no code) Systolic: 09-02-2018 no n lash[facility] 74mm[Hg] 120 mm[Hg] 11: ([id number]) Diastolic: 60 - 80 mm[Hg] Blood Pressure 161/ (H) Systolic: 09-01-2018 no na me [facility] 68mm[Hg] 120 mm[Hg] 10:0400 ([id number]) Diastolic: 60 - 80 mm[Hg] Blood Pressure 148/ (no code) Systolic: 08-30-2018 no n lashonda [facility] 73mm[Hg] 120 mm[Hg] 10:0400 ([id number]) Diastolic: 60 - 80 mm[Hg] Blood Pressure 115/ (no code) Systolic: 08-28-2018 no n lashonda [facility] 70mm[Hg] 120 mm[Hg] 11:160400 ([id number]) Diastolic: 60 - 80 mm[Hg] Blood Pressure 113/ (no code) Systolic: 08-27-2018 no n lashonda [facility] 66mm[Hg] 120 mm[Hg] 11:0400 ([id number]) Diastolic: 60 - 80 mm[Hg] Blood Pressure 154/ (no code) Systolic: 08-26-2018 no n lashonda [facility] 77mm[Hg] 120 mm[Hg] 11:0400 ([id number]) Diastolic: 60 - 80 mm[Hg] Blood Pressure 129/ (no code) Systolic: 08-25-2018 no n lashonda [facility] 65mm[Hg] 120 mm[Hg] 16:44-0400 ([id number]) Diastolic: 60 - 80 mm[Hg] Blood Pressure 129/ (no code) Systolic: 08-24-2018 no n lashonda [facility] 65mm[Hg] 120 mm[Hg] 10:16-0400 ([id number]) Diastolic: 60 - 80 mm[Hg] Blood Pressure 138/ (no code) Systolic: 08-23-2018 no n lashonda [facility] 60mm[Hg] 120 mm[Hg] 16:25-0400 ([id number]) Diastolic: 60 - 80 mm[Hg] Blood Pressure 170/ (HH) Systolic: 08-23-2018 no na me [facility] 67mm[Hg] 120 mm[Hg] 14:41-0400 ([id number]) Diastolic: 60 - 80 mm[Hg] Blood Pressure 170/ (HH) Systolic: 08-23-2018 no na me [facility] 67mm[Hg] 120 mm[Hg] 10:28-0400 ([id number]) Diastolic: 60 - 80 mm[Hg] Blood Pressure 111/ (no code) Systolic: 08-22-2018 no n lashonda [facility] 70mm[Hg] 120 mm[Hg] 09:57-0400 ([id number]) Diastolic: 60 - 80 mm[Hg] Blood Pressure 135/ (no code) Systolic: 08-21-2018 no n lashonda [facility] 70mm[Hg] 120 mm[Hg] 11:03-0400 ([id number]) Diastolic: 60 - 80 mm[Hg] Blood Pressure 120/ (no code) Systolic: 08-13-2018 no n lashonda [facility] 92mm[Hg] 120 mm[Hg] 11:31-0400 ([id number]) Diastolic: 60 - 80 mm[Hg] Blood Pressure 117/ (no code) Systolic: 08-12-2018 no n lashonda [facility] 65mm[Hg] 120 mm[Hg] 10:22-0400 ([id number]) Diastolic: 60 - 80 mm[Hg] Blood Pressure 128/ (no code) Systolic: 08-11-2018 no n lashonda [facility] 55mm[Hg] 120 mm[Hg] 11:02-0400 ([id number]) Diastolic: 60 - 80 mm[Hg] Blood Pressure 85/ (LL) Systolic: 08-11-2018 no na me [facility] 54mm[Hg] 120 mm[Hg] 11:00-0400 ([id number]) Diastolic: 60 - 80 mm[Hg] Blood Pressure 152/ (no code) Systolic: 08-10-2018 no n lashonda [facility] 73mm[Hg] 120 mm[Hg] 10:17-0400 ([id number]) Diastolic: 60 - 80 mm[Hg] Blood Pressure 157/ (no code) Systolic: 08-09-2018 no n lashonda [facility] 73mm[Hg] 120 mm[Hg] 10:16-0400 ([id number]) Diastolic: 60 - 80 mm[Hg] Blood Pressure 162/ (H) Systolic: 08-08-2018 no na me [facility] 80mm[Hg] 120 mm[Hg] 09:40-0400 ([id number]) Diastolic: 60 - 80 mm[Hg] Blood Pressure 150/ (no code) Systolic: 08-07-2018 no n lashonda [facility] 72mm[Hg] 120 mm[Hg] 09:48-0400 ([id number]) Diastolic: 60 - 80 mm[Hg] Blood Pressure 144/ (no code) Systolic: 08-06-2018 no n lashonda [facility] 75mm[Hg] 120 mm[Hg] 10:34-0400 ([id number]) Diastolic: 60 - 80 mm[Hg] Blood Pressure 145/ (no code) Systolic: 08-05-2018 no n lashonda [facility] 76mm[Hg] 120 mm[Hg] 11:03-0400 ([id number]) Diastolic: 60 - 80 mm[Hg] Blood Pressure 145/ (no code) Systolic: 08-04-2018 no n lashonda [facility] 87mm[Hg] 120 mm[Hg] 10:23-0400 ([id number]) Diastolic: 60 - 80 mm[Hg] Blood Pressure 154/ (no code) Systolic: 08-03-2018 no n lashonda [facility] 74mm[Hg] 120 mm[Hg] 10:110400 ([id number]) Diastolic: 60 - 80 mm[Hg] Blood Pressure 148/ (no code) Systolic: 08-02-2018 no n lashonda [facility] 61mm[Hg] 120 mm[Hg] 11:100400 ([id number]) Diastolic: 60 - 80 mm[Hg] Blood Pressure 148/ (no code) Systolic: 08-02-2018 no n lashonda [facility] 61mm[Hg] 120 mm[Hg] 09:260400 ([id number]) Diastolic: 60 - 80 mm[Hg] Blood Pressure 131/ (no code) Systolic: 08-01-2018 no n lashonda [facility] 54mm[Hg] 120 mm[Hg] 09:320400 ([id number]) Diastolic: 60 - 80 mm[Hg] Blood Pressure 153/ (no code) Systolic: 07-31-2018 no n lashonda [facility] 68mm[Hg] 120 mm[Hg] 15:140400 ([id number]) Diastolic: 60 - 80 mm[Hg] Blood Pressure 153/ (no code) Systolic: 07-31-2018 no n lashonda [facility] 68mm[Hg] 120 mm[Hg] 10:040400 ([id number]) Diastolic: 60 - 80 mm[Hg] Blood Pressure 162/ (H) Systolic: 07-30-2018 no na me [facility] 67mm[Hg] 120 mm[Hg] 10:57-0400 ([id number]) Diastolic: 60 - 80 mm[Hg] Blood Pressure 177/ (HH) Systolic: 07-30-2018 no na me [facility] 64mm[Hg] 120 mm[Hg] 10:53-0400 ([id number]) Diastolic: 60 - 80 mm[Hg] Blood Pressure 105/ (no code) Systolic: 07-29-2018 no n lashonda [facility] 56mm[Hg] 120 mm[Hg] 14:090400 ([id number]) Diastolic: 60 - 80 mm[Hg] Blood Pressure 105/ (no code) Systolic: 07-29-2018 no n lashonda [facility] 56mm[Hg] 120 mm[Hg] 09:290400 ([id number]) Diastolic: 60 - 80 mm[Hg] Blood Pressure 132/ (no code) Systolic: 07-28-2018 no n lashonda [facility] 64mm[Hg] 120 mm[Hg] 10:090400 ([id number]) Diastolic: 60 - 80 mm[Hg] Blood Pressure 144/ (no code) Systolic: 07-27-2018 no n lashonda [facility] 67mm[Hg] 120 mm[Hg] 10:350400 ([id number]) Diastolic: 60 - 80 mm[Hg] Blood Pressure 160/ (H) Systolic: 07-26-2018 no na me [facility] 79mm[Hg] 120 mm[Hg] 10:350400 ([id number]) Diastolic: 60 - 80 mm[Hg] Blood Pressure 130/ (no code) Systolic: 07-24-2018 no n lashonda [facility] 65mm[Hg] 120 mm[Hg] 13:470400 ([id number]) Diastolic: 60 - 80 mm[Hg] Blood Pressure 161/ (H) Systolic: 07-24-2018 no na me [facility] 58mm[Hg] 120 mm[Hg] 10:570400 ([id number]) Diastolic: 60 - 80 mm[Hg] Blood Pressure 178/ (HH) Systolic: 07-24-2018 no na me [facility] 73mm[Hg] 120 mm[Hg] 10:530400 ([id number]) Diastolic: 60 - 80 mm[Hg] Blood Pressure 147/ (no code) Systolic: 07-23-2018 no n lashonda [facility] 66mm[Hg] 120 mm[Hg] 10:51-0400 ([id number]) Diastolic: 60 - 80 mm[Hg] Blood Pressure 114/ (no code) Systolic: 07-22-2018 no n lashonda [facility] 70mm[Hg] 120 mm[Hg] 11:040400 ([id number]) Diastolic: 60 - 80 mm[Hg] Blood Pressure 123/ (no code) Systolic: 07-21-2018 no n lash[facility] 63mm[Hg] 120 mm[Hg] 11:34-0400 ([id number]) Diastolic: 60 - 80 mm[Hg] Blood Pressure 145/ (no code) Systolic: 07-20-2018 no n lashonda [facility] 60mm[Hg] 120 mm[Hg] 14:03040 ([id number]) Diastolic: 60 - 80 mm[Hg] Blood Pressure 145/ (no code) Systolic: 07-20-2018 no n l[facility]onda [facility] 60mm[Hg] 120 mm[Hg] 09:550400 ([id number]) Diastolic: 60 - 80 mm[Hg] Blood Pressure 158/ (no code) Systolic: 07-19-2018 no n l[facility] 62mm[Hg] 120 mm[Hg] 14:040 ([id number]) Diastolic: 60 - 80 mm[Hg] Blood Pressure 158/ (no code) Systolic: 07-19-2018 no n l[facility] 62mm[Hg] 120 mm[Hg] 09:490400 ([id number]) Diastolic: 60 - 80 mm[Hg] Blood Pressure 156/ (no code) Systolic: 07-18-2018 no n lashonda [facility] 66mm[Hg] 120 mm[Hg] 09:100400 ([id number]) Diastolic: 60 - 80 mm[Hg] Blood Pressure 155/ (no code) Systolic: 07-17-2018 no n l[facility] 72mm[Hg] 120 mm[Hg] 10:360400 ([id number]) Diastolic: 60 - 80 mm[Hg] Blood Pressure 123/ (no code) Systolic: 07-16-2018 no n lashonda [facility] 70mm[Hg] 120 mm[Hg] 10:190400 ([id number]) Diastolic: 60 - 80 mm[Hg] Blood Pressure 160/ (H) Systolic: 07-15-2018 no na me [facility] 85mm[Hg] 120 mm[Hg] 10:25-0400 ([id number]) Diastolic: 60 - 80 mm[Hg] Blood Pressure 129/ (no code) Systolic: 07-14-2018 no n [facility] 67mm[Hg] 120 mm[Hg] 16:420400 ([id number]) Diastolic: 60 - 80 mm[Hg] Blood Pressure 122/ (no code) Systolic: 07-13-2018 no n [facility] 64mm[Hg] 120 mm[Hg] 11:40-0400 ([id number]) Diastolic: 60 - 80 mm[Hg] Blood Pressure 115/ (no code) Systolic: 07-12-2018 no n [facility] 64mm[Hg] 120 mm[Hg] 13:40-0400 ([id number]) Diastolic: 60 - 80 mm[Hg] Blood Pressure 90/ (L,L) Systolic: 07-10-2018 no na me [facility] 48mm[Hg] 120 mm[Hg] 10:43-0400 ([id number]) Diastolic: 60 - 80 mm[Hg] Blood Pressure 123/ (no code) Systolic: 07-09-2018 no n [facility] 70mm[Hg] 120 mm[Hg] 11:41-0400 ([id number]) Diastolic: 60 - 80 mm[Hg] Blood Pressure 118/ (no code) Systolic: 07-08-2018 no n [facility] 70mm[Hg] 120 mm[Hg] 11:42-0400 ([id number]) Diastolic: 60 - 80 mm[Hg] Blood Pressure 130/ (no code) Systolic: 07-07-2018 no n [facility] 70mm[Hg] 120 mm[Hg] 17:020400 ([id number]) Diastolic: 60 - 80 mm[Hg] Blood Pressure 168/ (H) Systolic: 07-04-2018 no na me [facility] 81mm[Hg] 120 mm[Hg] 16:130400 ([id number]) Diastolic: 60 - 80 mm[Hg] Blood Pressure 168/ (H) Systolic: 07-03-2018 no na me [facility] 81mm[Hg] 120 mm[Hg] 10:090400 ([id number]) Diastolic: 60 - 80 mm[Hg] Blood Pressure 157/ (no code) Systolic: 07-02-2018 no n [facility] 75mm[Hg] 120 mm[Hg] 11:20-0400 ([id number]) Diastolic: 60 - 80 mm[Hg] Blood Pressure 155/ (no code) Systolic: 07-01-2018 no n [facility] 72mm[Hg] 120 mm[Hg] 10:130 ([id number]) Diastolic: 60 - 80 mm[Hg] Blood Pressure 160/ (H) Systolic: 06-30-2018 no na me [facility] 73mm[Hg] 120 mm[Hg] 10:360400 ([id number]) Diastolic: 60 - 80 mm[Hg] Blood Pressure 162/ (H) Systolic: 06-29-2018 no na me [facility] 69mm[Hg] 120 mm[Hg] 11:040 ([id number]) Diastolic: 60 - 80 mm[Hg] Blood Pressure 157/ (no code) Systolic: 06-28-2018 no n [facility] 69mm[Hg] 120 mm[Hg] 10:370400 ([id number]) Diastolic: 60 - 80 mm[Hg] Blood Pressure 149/ (no code) Systolic: 06-27-2018 no n [facility] 59mm[Hg] 120 mm[Hg] 10:0400 ([id number]) Diastolic: 60 - 80 mm[Hg] Blood Pressure 133/ (no code) Systolic: 06-26-2018 no n [facility] 67mm[Hg] 120 mm[Hg] 10:0400 ([id number]) Diastolic: 60 - 80 mm[Hg] Blood Pressure 163/ (H) Systolic: 06-25-2018 no na me [facility] 75mm[Hg] 120 mm[Hg] 10:0400 ([id number]) Diastolic: 60 - 80 mm[Hg] Blood Pressure 136/ (no code) Systolic: 06-24-2018 no n [facility] 72mm[Hg] 120 mm[Hg] 11: ([id number]) Diastolic: 60 - 80 mm[Hg] Blood Pressure 164/ (H) Systolic: 06-23-2018 no na me [facility] 67mm[Hg] 120 mm[Hg] 10:420400 ([id number]) Diastolic: 60 - 80 mm[Hg] Blood Pressure 153/ (no code) Systolic: 06-22-2018 no n [facility] 71mm[Hg] 120 mm[Hg] 15:35-0400 ([id number]) Diastolic: 60 - 80 mm[Hg] Blood Pressure 164/ (H,HH) Systolic: 06-22-2018 no na me [facility] 105mm[Hg] 120 mm[Hg] 10:34-0400 ([id number]) Diastolic: 60 - 80 mm[Hg] Blood Pressure 119/ (no code) Systolic: 06-21-2018 no n l[facility] 68mm[Hg] 120 mm[Hg] 12:47-0400 ([id number]) Diastolic: 60 - 80 mm[Hg] Blood Pressure 159/ (no code) Systolic: 06-20-2018 no n l[facility] 72mm[Hg] 120 mm[Hg] 09:29-0400 ([id number]) Diastolic: 60 - 80 mm[Hg] Blood Pressure 158/ (no code) Systolic: 06-19-2018 no n l[facility] 86mm[Hg] 120 mm[Hg] 10:43-0400 ([id number]) Diastolic: 60 - 80 mm[Hg] Blood Pressure 165/ (H) Systolic: 06-18-2018 no na me [facility] 79mm[Hg] 120 mm[Hg] 11:21-0400 ([id number]) Diastolic: 60 - 80 mm[Hg] Blood Pressure 118/ (no code) Systolic: 06-17-2018 no n [facility] 64mm[Hg] 120 mm[Hg] 09:45-0400 ([id number]) Diastolic: 60 - 80 mm[Hg] Blood Pressure 135/ (no code) Systolic: 06-16-2018 no n l[facility] 72mm[Hg] 120 mm[Hg] 10:12-0400 ([id number]) Diastolic: 60 - 80 mm[Hg] Blood Pressure 144/ (no code) Systolic: 06-15-2018 no n l[facility] 71mm[Hg] 120 mm[Hg] 14:43-0400 ([id number]) Diastolic: 60 - 80 mm[Hg] Blood Pressure 144/ (no code) Systolic: 06-15-2018 no n [facility] 71mm[Hg] 120 mm[Hg] 09:40-0400 ([id number]) Diastolic: 60 - 80 mm[Hg] Blood Pressure 153/ (no code) Systolic: 06-14-2018 no n [facility] 70mm[Hg] 120 mm[Hg] 10:40-0400 ([id number]) Diastolic: 60 - 80 mm[Hg] Blood Pressure 137/ (no code) Systolic: 06-13-2018 no n [facility] 81mm[Hg] 120 mm[Hg] 09:54-0400 ([id number]) Diastolic: 60 - 80 mm[Hg] Blood Pressure 139/ (no code) Systolic: 06-12-2018 no n l[facility] 64mm[Hg] 120 mm[Hg] 10:13-0400 ([id number]) Diastolic: 60 - 80 mm[Hg] Blood Pressure 124/ (H) Systolic: 06-11-2018 no na me [facility] 96mm[Hg] 120 mm[Hg] 11:20-0400 ([id number]) Diastolic: 60 - 80 mm[Hg] Blood Pressure 133/ (no code) Systolic: 06-10-2018 no n [facility] 71mm[Hg] 120 mm[Hg] 10:17-0400 ([id number]) Diastolic: 60 - 80 mm[Hg] Blood Pressure 153/ (no code) Systolic: 06-09-2018 no n [facility] 75mm[Hg] 120 mm[Hg] 12:41-0400 ([id number]) Diastolic: 60 - 80 mm[Hg] Blood Pressure 173/ (HH) Systolic: 06-09-2018 no na me [facility] 72mm[Hg] 120 mm[Hg] 12:40-0400 ([id number]) Diastolic: 60 - 80 mm[Hg] Blood Pressure 123/ (no code) Systolic: 06-08-2018 no n l[facility] 67mm[Hg] 120 mm[Hg] 16:50-0400 ([id number]) Diastolic: 60 - 80 mm[Hg] Blood Pressure 139/ (no code) Systolic: 06-07-2018 no n l[facility] 69mm[Hg] 120 mm[Hg] 13:38-0400 ([id number]) Diastolic: 60 - 80 mm[Hg] Blood Pressure 136/ (no code) Systolic: 06-05-2018 no n l[facility] 70mm[Hg] 120 mm[Hg] 11:32-0400 ([id number]) Diastolic: 60 - 80 mm[Hg] Blood Pressure 128/ (no code) Systolic: 06-04-2018 no n l[facility] 72mm[Hg] 120 mm[Hg] 12:06-0400 ([id number]) Diastolic: 60 - 80 mm[Hg] Blood Pressure 134/ (HH) Systolic: 06-04-2018 no na me [facility] 118mm[Hg] 120 mm[Hg] 12:040400 ([id number]) Diastolic: 60 - 80 mm[Hg] Blood Pressure 111/ (no code) Systolic: 06-03-2018 no n l[facility] 55mm[Hg] 120 mm[Hg] 11:43-0400 ([id number]) Diastolic: 60 - 80 mm[Hg] Blood Pressure 111/ (no code) Systolic: 06-03-2018 no n l[facility] 55mm[Hg] 120 mm[Hg] 10:29-0400 ([id number]) Diastolic: 60 - 80 mm[Hg] Blood Pressure 164/ (H) Systolic: 06-02-2018 no na me [facility] 77mm[Hg] 120 mm[Hg] 10:51-0400 ([id number]) Diastolic: 60 - 80 mm[Hg] Blood Pressure 160/ (H) Systolic: 06-01-2018 no na me [facility] 58mm[Hg] 120 mm[Hg] 15:080400 ([id number]) Diastolic: 60 - 80 mm[Hg] Blood Pressure 160/ (H) Systolic: 05-31-2018 no na me [facility] 58mm[Hg] 120 mm[Hg] 14:32-0400 ([id number]) Diastolic: 60 - 80 mm[Hg] Blood Pressure 160/ (H) Systolic: 05-30-2018 no na me [facility] 88mm[Hg] 120 mm[Hg] 10:030400 ([id number]) Diastolic: 60 - 80 mm[Hg] Blood Pressure 113/ (no code) Systolic: 05-29-2018 no n l[facility] 72mm[Hg] 120 mm[Hg] 11:46-0500 ([id number]) Diastolic: 60 - 80 mm[Hg] Blood Pressure 100/ (no code) Systolic: 05-28-2018 no n l[facility] 83mm[Hg] 120 mm[Hg] 10:53-0500 ([id number]) Diastolic: 60 - 80 mm[Hg] Blood Pressure 169/ (H) Systolic: 05-27-2018 no na me [facility] 89mm[Hg] 120 mm[Hg] 09:230500 ([id number]) Diastolic: 60 - 80 mm[Hg] Blood Pressure 103/ (no code) Systolic: 05-26-2018 no n [facility] 57mm[Hg] 120 mm[Hg] 10:350500 ([id number]) Diastolic: 60 - 80 mm[Hg] Blood Pressure 180/ (HH) Systolic: 05-26-2018 no na me [facility] 85mm[Hg] 120 mm[Hg] 10:330500 ([id number]) Diastolic: 60 - 80 mm[Hg] Blood Pressure 180/ (HH) Systolic: 05-26-2018 no na me [facility] 85mm[Hg] 120 mm[Hg] 09:130500 ([id number]) Diastolic: 60 - 80 mm[Hg] Blood Pressure 154/ (no code) Systolic: 05-24-2018 no n l[facility] 73mm[Hg] 120 mm[Hg] 10:200500 ([id number]) Diastolic: 60 - 80 mm[Hg] Blood Pressure 141/ (no code) Systolic: 05-22-2018 no n l[facility] 73mm[Hg] 120 mm[Hg] 10:260500 ([id number]) Diastolic: 60 - 80 mm[Hg] Blood Pressure 184/ (HH) Systolic: 05-22-2018 no na me [facility] 81mm[Hg] 120 mm[Hg] 10:23-0500 ([id number]) Diastolic: 60 - 80 mm[Hg] Blood Pressure 130/ (no code) Systolic: 05-21-2018 no n l[facility] 56mm[Hg] 120 mm[Hg] 16:40-0500 ([id number]) Diastolic: 60 - 80 mm[Hg] Blood Pressure 164/ (H) Systolic: 05-19-2018 no na me [facility] 85mm[Hg] 120 mm[Hg] 10:33-0500 ([id number]) Diastolic: 60 - 80 mm[Hg] Blood Pressure 175/ (HH) Systolic: 05-19-2018 no na me [facility] 70mm[Hg] 120 mm[Hg] 10:32-0500 ([id number]) Diastolic: 60 - 80 mm[Hg] Blood Pressure 162/ (H) Systolic: 05-18-2018 no na me [facility] 79mm[Hg] 120 mm[Hg] 10:47-0500 ([id number]) Diastolic: 60 - 80 mm[Hg] Blood Pressure 146/ (H) Systolic: 05-17-2018 no na me [facility] 96mm[Hg] 120 mm[Hg] 11:50-0500 ([id number]) Diastolic: 60 - 80 mm[Hg] Blood Pressure 123/ (no code) Systolic: 05-15-2018 no n l[facility] 63mm[Hg] 120 mm[Hg] 16:35-0500 ([id number]) Diastolic: 60 - 80 mm[Hg] Blood Pressure 133/ (no code) Systolic: 05-14-2018 no n l[facility] 64mm[Hg] 120 mm[Hg] 10:36-0500 ([id number]) Diastolic: 60 - 80 mm[Hg] Blood Pressure 146/ (no code) Systolic: 05-12-2018 no n l[facility] 68mm[Hg] 120 mm[Hg] 10:16-0500 ([id number]) Diastolic: 60 - 80 mm[Hg] Blood Pressure 127/ (no code) Systolic: 05-11-2018 no n l[facility] 64mm[Hg] 120 mm[Hg] 14:04-0500 ([id number]) Diastolic: 60 - 80 mm[Hg] Blood Pressure 127/ (no code) Systolic: 05-10-2018 no n l[facility] 64mm[Hg] 120 mm[Hg] 14:02-0500 ([id number]) Diastolic: 60 - 80 mm[Hg] Blood Pressure 152/ (no code) Systolic: 05-09-2018 no n l[facility] 75mm[Hg] 120 mm[Hg] 09:48-0500 ([id number]) Diastolic: 60 - 80 mm[Hg] Blood Pressure 138/ (no code) Systolic: 05-08-2018 no n l[facility] 64mm[Hg] 120 mm[Hg] 10:31-0500 ([id number]) Diastolic: 60 - 80 mm[Hg] Blood Pressure 160/ (H) Systolic: 05-07-2018 no na me [facility] 74mm[Hg] 120 mm[Hg] 11:41-0500 ([id number]) Diastolic: 60 - 80 mm[Hg] Blood Pressure 163/ (H) Systolic: 05-06-2018 no na me [facility] 84mm[Hg] 120 mm[Hg] 10:40-0500 ([id number]) Diastolic: 60 - 80 mm[Hg] Blood Pressure 152/ (no code) Systolic: 05-05-2018 no n l[facility] 77mm[Hg] 120 mm[Hg] 10:44-0500 ([id number]) Diastolic: 60 - 80 mm[Hg] Blood Pressure 143/ (no code) Systolic: 05-04-2018 no n l[facility] 63mm[Hg] 120 mm[Hg] 14:01-0500 ([id number]) Diastolic: 60 - 80 mm[Hg] Blood Pressure 172/ (HH) Systolic: 05-03-2018 no na me [facility] 77mm[Hg] 120 mm[Hg] 13:53-0500 ([id number]) Diastolic: 60 - 80 mm[Hg] Blood Pressure 172/ (HH) Systolic: 05-03-2018 no na me [facility] 77mm[Hg] 120 mm[Hg] 10:51-0500 ([id number]) Diastolic: 60 - 80 mm[Hg] Blood Pressure 171/ (HH) Systolic: 05-03-2018 no na me [facility] 85mm[Hg] 120 mm[Hg] 10:49-0500 ([id number]) Diastolic: 60 - 80 mm[Hg] Blood Pressure 172/ (HH,HH) Systolic: 05-02-2018 no na me [facility] 103mm[Hg] 120 mm[Hg] 09:21-0500 ([id number]) Diastolic: 60 - 80 mm[Hg] Blood Pressure 157/ (no code) Systolic: 05-01-2018 no n l[facility] 83mm[Hg] 120 mm[Hg] 12:20-0500 ([id number]) Diastolic: 60 - 80 mm[Hg] Blood Pressure 157/ (no code) Systolic: 05-01-2018 no n l[facility] 83mm[Hg] 120 mm[Hg] 09:57-0500 ([id number]) Diastolic: 60 - 80 mm[Hg] Blood Pressure 124/ (no code) Systolic: 04-29-2018 no n l[facility] 74mm[Hg] 120 mm[Hg] 11:09-0500 ([id number]) Diastolic: 60 - 80 mm[Hg] Blood Pressure 167/ (H,HH) Systolic: 04-28-2018 no na me [facility] 100mm[Hg] 120 mm[Hg] 10:46-0500 ([id number]) Diastolic: 60 - 80 mm[Hg] Blood Pressure 109/ (no code) Systolic: 04-27-2018 no n l[facility] 58mm[Hg] 120 mm[Hg] 13:55-0500 ([id number]) Diastolic: 60 - 80 mm[Hg] Blood Pressure 166/ (H) Systolic: 04-27-2018 no na me [facility] 78mm[Hg] 120 mm[Hg] 09:30-0500 ([id number]) Diastolic: 60 - 80 mm[Hg] Blood Pressure 146/ (no code) Systolic: 04-26-2018 no n l[facility] 77mm[Hg] 120 mm[Hg] 12:58-0500 ([id number]) Diastolic: 60 - 80 mm[Hg] Blood Pressure 146/ (no code) Systolic: 04-26-2018 no n lash[facility] 77mm[Hg] 120 mm[Hg] 10:00-0500 ([id number]) Diastolic: 60 - 80 mm[Hg] Blood Pressure 152/ (no code) Systolic: 04-24-2018 no n lash[facility] 74mm[Hg] 120 mm[Hg] 10:21-0500 ([id number]) Diastolic: 60 - 80 mm[Hg] Blood Pressure 124/ (H) Systolic: 04-23-2018 no na me [facility] 96mm[Hg] 120 mm[Hg] 10:39-0500 ([id number]) Diastolic: 60 - 80 mm[Hg] Blood Pressure 136/ (HH) Systolic: 04-23-2018 no na me [facility] 104mm[Hg] 120 mm[Hg] 10:38-0500 ([id number]) Diastolic: 60 - 80 mm[Hg] Blood Pressure 89/ (L,L) Systolic: 04-22-2018 no na me [facility] 44mm[Hg] 120 mm[Hg] 12:190500 ([id number]) Diastolic: 60 - 80 mm[Hg] Blood Pressure 103/ (no code) Systolic: 04-21-2018 no n l[facility] 58mm[Hg] 120 mm[Hg] 13:090500 ([id number]) Diastolic: 60 - 80 mm[Hg] Blood Pressure 103/ (no code) Systolic: 04-20-2018 no n lash[facility] 58mm[Hg] 120 mm[Hg] 11:16-0500 ([id number]) Diastolic: 60 - 80 mm[Hg] Blood Pressure 128/ (no code) Systolic: 04-19-2018 no n l[facility] 70mm[Hg] 120 mm[Hg] 10:25-0500 ([id number]) Diastolic: 60 - 80 mm[Hg] Blood Pressure 141/ (no code) Systolic: 04-18-2018 no n lash[facility] 76mm[Hg] 120 mm[Hg] 09:55-0500 ([id number]) Diastolic: 60 - 80 mm[Hg] Blood Pressure 154/ (no code) Systolic: 04-17-2018 no n lash[facility] 74mm[Hg] 120 mm[Hg] 10:18-0500 ([id number]) Diastolic: 60 - 80 mm[Hg] Blood Pressure 166/ (H) Systolic: 04-16-2018 no na me [facility] 71mm[Hg] 120 mm[Hg] 09:27-0500 ([id number]) Diastolic: 60 - 80 mm[Hg] Blood Pressure 108/ (L) Systolic: 04-15-2018 no na me [facility] 40mm[Hg] 120 mm[Hg] 12:31-0500 ([id number]) Diastolic: 60 - 80 mm[Hg] Blood Pressure 170/ (HH) Systolic: 04-15-2018 no na me [facility] 74mm[Hg] 120 mm[Hg] 09:57-0500 ([id number]) Diastolic: 60 - 80 mm[Hg] Blood Pressure 140/ (no code) Systolic: 04-14-2018 no n l[facility] 78mm[Hg] 120 mm[Hg] 10:41-0500 ([id number]) Diastolic: 60 - 80 mm[Hg] Blood Pressure 162/ (H) Systolic: 04-13-2018 no na me [facility] 67mm[Hg] 120 mm[Hg] 10:30-0500 ([id number]) Diastolic: 60 - 80 mm[Hg] Blood Pressure 145/ (no code) Systolic: 04-12-2018 no n l[facility] 74mm[Hg] 120 mm[Hg] 17:53-0500 ([id number]) Diastolic: 60 - 80 mm[Hg] Blood Pressure 160/ (H) Systolic: 04-10-2018 no na me [facility] 81mm[Hg] 120 mm[Hg] 10:17-0500 ([id number]) Diastolic: 60 - 80 mm[Hg] Blood Pressure 147/ (no code) Systolic: 04-09-2018 no n l[facility] 67mm[Hg] 120 mm[Hg] 15:10-0500 ([id number]) Diastolic: 60 - 80 mm[Hg] Blood Pressure 142/ (no code) Systolic: 04-08-2018 no n l[facility] 61mm[Hg] 120 mm[Hg] 10:08-0500 ([id number]) Diastolic: 60 - 80 mm[Hg] Blood Pressure 148/ (HH) Systolic: 04-08-2018 no na me [facility] 134mm[Hg] 120 mm[Hg] 10:04-0500 ([id number]) Diastolic: 60 - 80 mm[Hg] Blood Pressure 127/ (no code) Systolic: 04-07-2018 no n l[facility] 57mm[Hg] 120 mm[Hg] 10:49-0500 ([id number]) Diastolic: 60 - 80 mm[Hg] Blood Pressure 153/ (no code) Systolic: 04-05-2018 no n l[facility] 61mm[Hg] 120 mm[Hg] 10:22-0500 ([id number]) Diastolic: 60 - 80 mm[Hg] Blood Pressure 162/ (H) Systolic: 04-04-2018 no na me [facility] 72mm[Hg] 120 mm[Hg] 09:54-0500 ([id number]) Diastolic: 60 - 80 mm[Hg] Blood Pressure 108/ (L) Systolic: 04-03-2018 no na me [facility] 48mm[Hg] 120 mm[Hg] 11:20-0500 ([id number]) Diastolic: 60 - 80 mm[Hg] Blood Pressure 148/ (no code) Systolic: 04-02-2018 no n l[facility] 69mm[Hg] 120 mm[Hg] 11:230500 ([id number]) Diastolic: 60 - 80 mm[Hg] Blood Pressure 164/ (H) Systolic: 03-31-2018 no na me [facility] 78mm[Hg] 120 mm[Hg] 09:23-0500 ([id number]) Diastolic: 60 - 80 mm[Hg] Blood Pressure 129/ (no code) Systolic: 03-30-2018 no n l[facility] 60mm[Hg] 120 mm[Hg] 13:55-0500 ([id number]) Diastolic: 60 - 80 mm[Hg] Blood Pressure 153/ (no code) Systolic: 03-29-2018 no n l[facility] 54mm[Hg] 120 mm[Hg] 14:39-0500 ([id number]) Diastolic: 60 - 80 mm[Hg] Blood Pressure 153/ (no code) Systolic: 03-27-2018 no n l[facility] 54mm[Hg] 120 mm[Hg] 10:19-0500 ([id number]) Diastolic: 60 - 80 mm[Hg] Blood Pressure 156/ (no code) Systolic: 03-26-2018 no n l[facility] 78mm[Hg] 120 mm[Hg] 09:52-0500 ([id number]) Diastolic: 60 - 80 mm[Hg] Blood Pressure 123/ (no code) Systolic: 03-25-2018 no n l[facility] 62mm[Hg] 120 mm[Hg] 10:23-0500 ([id number]) Diastolic: 60 - 80 mm[Hg] Blood Pressure 111/ (no code) Systolic: 03-24-2018 no n l[facility] 74mm[Hg] 120 mm[Hg] 17:17-0500 ([id number]) Diastolic: 60 - 80 mm[Hg] Blood Pressure 126/ (no code) Systolic: 03-20-2018 no n l[facility] 57mm[Hg] 120 mm[Hg] 09:41-0500 ([id number]) Diastolic: 60 - 80 mm[Hg] Blood Pressure 126/ (no code) Systolic: 03-19-2018 no n l[facility] 57mm[Hg] 120 mm[Hg] 09:44-0500 ([id number]) Diastolic: 60 - 80 mm[Hg] Blood Pressure 162/ (H) Systolic: 03-18-2018 no na me [facility] 60mm[Hg] 120 mm[Hg] 09:57-0500 ([id number]) Diastolic: 60 - 80 mm[Hg] Blood Pressure 120/ (no code) Systolic: 03-17-2018 no n l[facility] 57mm[Hg] 120 mm[Hg] 09:41-0500 ([id number]) Diastolic: 60 - 80 mm[Hg] Blood Pressure 146/ (no code) Systolic: 03-16-2018 no n l[facility] 66mm[Hg] 120 mm[Hg] 09:59-0500 ([id number]) Diastolic: 60 - 80 mm[Hg] Blood Pressure 128/ (no code) Systolic: 03-15-2018 no n l[facility] 56mm[Hg] 120 mm[Hg] 10:02-0500 ([id number]) Diastolic: 60 - 80 mm[Hg] Blood Pressure 139/ (no code) Systolic: 03-14-2018 no n l[facility] 59mm[Hg] 120 mm[Hg] 09:10-0500 ([id number]) Diastolic: 60 - 80 mm[Hg] Blood Pressure 119/ (no code) Systolic: 03-13-2018 no n l[facility] 56mm[Hg] 120 mm[Hg] 09:44-0500 ([id number]) Diastolic: 60 - 80 mm[Hg] Blood Pressure 126/ (no code) Systolic: 03-12-2018 no n l[facility] 65mm[Hg] 120 mm[Hg] 12:47-0500 ([id number]) Diastolic: 60 - 80 mm[Hg] Blood Pressure 145/ (HH) Systolic: 03-12-2018 no na me [facility] 102mm[Hg] 120 mm[Hg] 12:45-0500 ([id number]) Diastolic: 60 - 80 mm[Hg] Blood Pressure 145/ (HH) Systolic: 03-12-2018 no na me [facility] 102mm[Hg] 120 mm[Hg] 08:23-0500 ([id number]) Diastolic: 60 - 80 mm[Hg] Blood Pressure 144/ (no code) Systolic: 03-11-2018 no n l[facility] 74mm[Hg] 120 mm[Hg] 09:200500 ([id number]) Diastolic: 60 - 80 mm[Hg] Blood Pressure 123/ (no code) Systolic: 03-10-2018 no n l[facility] 59mm[Hg] 120 mm[Hg] 11:24-0500 ([id number]) Diastolic: 60 - 80 mm[Hg] Blood Pressure 123/ (no code) Systolic: 03-10-2018 no n l[facility] 59mm[Hg] 120 mm[Hg] 09:32-0500 ([id number]) Diastolic: 60 - 80 mm[Hg] Blood Pressure 103/ (no code) Systolic: 03-09-2018 no n l[facility] 71mm[Hg] 120 mm[Hg] 14:19-0500 ([id number]) Diastolic: 60 - 80 mm[Hg] Blood Pressure 103/ (no code) Systolic: 03-09-2018 no n l[facility] 71mm[Hg] 120 mm[Hg] 08:54-0500 ([id number]) Diastolic: 60 - 80 mm[Hg] Blood Pressure 143/ (no code) Systolic: 03-08-2018 no n l[facility] 64mm[Hg] 120 mm[Hg] 13:45-0500 ([id number]) Diastolic: 60 - 80 mm[Hg] Blood Pressure 143/ (no code) Systolic: 03-08-2018 no n l[facility] 64mm[Hg] 120 mm[Hg] 09:00-0500 ([id number]) Diastolic: 60 - 80 mm[Hg] Blood Pressure 143/ (no code) Systolic: 03-07-2018 no n l[facility] 64mm[Hg] 120 mm[Hg] 08:52-0500 ([id number]) Diastolic: 60 - 80 mm[Hg] Blood Pressure 168/ (H) Systolic: 03-06-2018 no na me [facility] 81mm[Hg] 120 mm[Hg] 13:01-0500 ([id number]) Diastolic: 60 - 80 mm[Hg] Blood Pressure 168/ (H) Systolic: 03-06-2018 no na me [facility] 81mm[Hg] 120 mm[Hg] 09:49-0500 ([id number]) Diastolic: 60 - 80 mm[Hg] Blood Pressure 146/ (no code) Systolic: 03-05-2018 no n l[facility] 69mm[Hg] 120 mm[Hg] 13:02-0500 ([id number]) Diastolic: 60 - 80 mm[Hg] Blood Pressure 146/ (no code) Systolic: 03-05-2018 no n l[facility] 69mm[Hg] 120 mm[Hg] 09:54-0500 ([id number]) Diastolic: 60 - 80 mm[Hg] Blood Pressure 132/ (no code) Systolic: 03-04-2018 no n l[facility] 62mm[Hg] 120 mm[Hg] 08:31-0500 ([id number]) Diastolic: 60 - 80 mm[Hg] Blood Pressure 109/ (no code) Systolic: 03-03-2018 no n l[facility] 63mm[Hg] 120 mm[Hg] 12:28-0500 ([id number]) Diastolic: 60 - 80 mm[Hg] Blood Pressure 130/ (no code) Systolic: 03-03-2018 no n l[facility] 63mm[Hg] 120 mm[Hg] 08:54-0500 ([id number]) Diastolic: 60 - 80 mm[Hg] Blood Pressure 109/ (no code) Systolic: 03-02-2018 no n l[facility] 66mm[Hg] 120 mm[Hg] 13:14-0500 ([id number]) Diastolic: 60 - 80 mm[Hg] Blood Pressure 109/ (no code) Systolic: 03-02-2018 no n l[facility] 66mm[Hg] 120 mm[Hg] 08:46-0500 ([id number]) Diastolic: 60 - 80 mm[Hg] Blood Pressure 120/ (H) Systolic: 03-01-2018 no na me [facility] 98mm[Hg] 120 mm[Hg] 11:24-0500 ([id number]) Diastolic: 60 - 80 mm[Hg] Blood Pressure 120/ (H) Systolic: 03-01-2018 no na me [facility] 98mm[Hg] 120 mm[Hg] 09:48-0500 ([id number]) Diastolic: 60 - 80 mm[Hg] Blood Pressure 124/ (no code) Systolic: 02-27-2018 no n l[facility] 62mm[Hg] 120 mm[Hg] 11:39-0500 ([id number]) Diastolic: 60 - 80 mm[Hg] Blood Pressure 124/ (no code) Systolic: 02-27-2018 no n l[facility]onda [facility] 62mm[Hg] 120 mm[Hg] 09:13-0500 ([id number]) Diastolic: 60 - 80 mm[Hg] Blood Pressure 137/ (no code) Systolic: 02-26-2018 no n l[facility]onda [facility] 68mm[Hg] 120 mm[Hg] 10:22-0500 ([id number]) Diastolic: 60 - 80 mm[Hg] Blood Pressure 144/ (no code) Systolic: 02-25-2018 no n lashonda [facility] 68mm[Hg] 120 mm[Hg] 12:50-0500 ([id number]) Diastolic: 60 - 80 mm[Hg] Blood Pressure 144/ (no code) Systolic: 02-25-2018 no n lashonda [facility] 68mm[Hg] 120 mm[Hg] 09:49-0500 ([id number]) Diastolic: 60 - 80 mm[Hg] Blood Pressure 162/ (H) Systolic: 02-24-2018 no na me [facility] 66mm[Hg] 120 mm[Hg] 09:060500 ([id number]) Diastolic: 60 - 80 mm[Hg] Blood Pressure 138/ (no code) Systolic: 02-23-2018 no n l[facility] 62mm[Hg] 120 mm[Hg] 10:040500 ([id number]) Diastolic: 60 - 80 mm[Hg] Blood Pressure 138/ (no code) Systolic: 02-22-2018 no n l[facility]onda [facility] 72mm[Hg] 120 mm[Hg] 09:37-0500 ([id number]) Diastolic: 60 - 80 mm[Hg] Diastolic 70 mm[Hg] (no code) 60 - 80 mm[Hg] 02-22-2018 no name [facility] blood pressure 09:35-0500 ([id number]) Blood Pressure 179/ (HH) Systolic: 02-21-2018 no na me [facility] 67mm[Hg] 120 mm[Hg] 10:24-0500 ([id number]) Diastolic: 60 - 80 mm[Hg] Blood Pressure 143/ (no code) Systolic: 02-20-2018 no n l[facility] 62mm[Hg] 120 mm[Hg] 09:37-0500 ([id number]) Diastolic: 60 - 80 mm[Hg] Blood Pressure 156/ (no code) Systolic: 02-19-2018 no n l[facility]onda [facility] 73mm[Hg] 120 mm[Hg] 09:49-0500 ([id number]) Diastolic: 60 - 80 mm[Hg] Blood Pressure 116/ (no code) Systolic: 02-18-2018 no n l[facility]onda [facility] 93mm[Hg] 120 mm[Hg] 09:32-0500 ([id number]) Diastolic: 60 - 80 mm[Hg] Blood Pressure 131/ (no code) Systolic: 02-17-2018 no n l[facility]onda [facility] 56mm[Hg] 120 mm[Hg] 14:47-0500 ([id number]) Diastolic: 60 - 80 mm[Hg] Blood Pressure 131/ (no code) Systolic: 02-17-2018 no n l[facility] 56mm[Hg] 120 mm[Hg] 08:34-0500 ([id number]) Diastolic: 60 - 80 mm[Hg] Blood Pressure 131/ (no code) Systolic: 02-16-2018 no n l[facility] 68mm[Hg] 120 mm[Hg] 14:52-0500 ([id number]) Diastolic: 60 - 80 mm[Hg] Blood Pressure 170/ (HH) Systolic: 02-16-2018 no na me [facility] 68mm[Hg] 120 mm[Hg] 09:48-0500 ([id number]) Diastolic: 60 - 80 mm[Hg] Blood Pressure 131/ (no code) Systolic: 02-15-2018 no n l[facility] 67mm[Hg] 120 mm[Hg] 14:17-0500 ([id number]) Diastolic: 60 - 80 mm[Hg] Blood Pressure 161/ (H) Systolic: 02-15-2018 no na me [facility] 72mm[Hg] 120 mm[Hg] 09:36-0500 ([id number]) Diastolic: 60 - 80 mm[Hg] Blood Pressure 143/ (no code) Systolic: 02-14-2018 no n l[facility] 71mm[Hg] 120 mm[Hg] 08:53-0500 ([id number]) Diastolic: 60 - 80 mm[Hg] Blood Pressure 129/ (no code) Systolic: 02-12-2018 no n l[facility] 63mm[Hg] 120 mm[Hg] 14:09-0500 ([id number]) Diastolic: 60 - 80 mm[Hg] Blood Pressure 129/ (no code) Systolic: 02-12-2018 no n l[facility] 63mm[Hg] 120 mm[Hg] 09:34-0500 ([id number]) Diastolic: 60 - 80 mm[Hg] Blood Pressure 102/ (no code) Systolic: 02-11-2018 no n l[facility] 58mm[Hg] 120 mm[Hg] 20:30-0500 ([id number]) Diastolic: 60 - 80 mm[Hg] Blood Pressure 145/ (no code) Systolic: 02-11-2018 no n l[facility] 66mm[Hg] 120 mm[Hg] 10:09-0500 ([id number]) Diastolic: 60 - 80 mm[Hg] Blood Pressure 148/ (no code) Systolic: 02-10-2018 no n l[facility] 69mm[Hg] 120 mm[Hg] 14:35-0500 ([id number]) Diastolic: 60 - 80 mm[Hg] Blood Pressure 148/ (no code) Systolic: 02-10-2018 no n [facility] 69mm[Hg] 120 mm[Hg] 09:32-0500 ([id number]) Diastolic: 60 - 80 mm[Hg] Blood Pressure 156/ (no code) Systolic: 02-09-2018 no n [facility] 74mm[Hg] 120 mm[Hg] 14:42-0500 ([id number]) Diastolic: 60 - 80 mm[Hg] Blood Pressure 156/ (no code) Systolic: 02-09-2018 no n [facility] 74mm[Hg] 120 mm[Hg] 09:52-0500 ([id number]) Diastolic: 60 - 80 mm[Hg] Blood Pressure 108/ (no code) Systolic: 02-08-2018 no n [facility] 80mm[Hg] 120 mm[Hg] 14:04-0500 ([id number]) Diastolic: 60 - 80 mm[Hg] Blood Pressure 108/ (no code) Systolic: 02-08-2018 no n [facility] 80mm[Hg] 120 mm[Hg] 08:10-0500 ([id number]) Diastolic: 60 - 80 mm[Hg] Blood Pressure 146/ (no code) Systolic: 02-07-2018 no n [facility] 71mm[Hg] 120 mm[Hg] 08:34-0500 ([id number]) Diastolic: 60 - 80 mm[Hg] Blood Pressure 160/ (H) Systolic: 02-06-2018 no na me [facility] 88mm[Hg] 120 mm[Hg] 09:16-0500 ([id number]) Diastolic: 60 - 80 mm[Hg] Blood Pressure 156/ (no code) Systolic: 02-05-2018 no n [facility] 69mm[Hg] 120 mm[Hg] 10:04-0500 ([id number]) Diastolic: 60 - 80 mm[Hg] Blood Pressure 180/ (HH) Systolic: 02-04-2018 no na me [facility] 69mm[Hg] 120 mm[Hg] 09:28-0500 ([id number]) Diastolic: 60 - 80 mm[Hg] Blood Pressure 154/ (no code) Systolic: 02-03-2018 no n [facility] 71mm[Hg] 120 mm[Hg] 14:150500 ([id number]) Diastolic: 60 - 80 mm[Hg] Blood Pressure 154/ (no code) Systolic: 02-03-2018 no n [facility] 71mm[Hg] 120 mm[Hg] 09:47-0500 ([id number]) Diastolic: 60 - 80 mm[Hg] Blood Pressure 163/ (H) Systolic: 02-02-2018 no na me [facility] 63mm[Hg] 120 mm[Hg] 14:19-0500 ([id number]) Diastolic: 60 - 80 mm[Hg] Blood Pressure 171/ (HH) Systolic: 02-02-2018 no na me [facility] 72mm[Hg] 120 mm[Hg] 14:14-0500 ([id number]) Diastolic: 60 - 80 mm[Hg] Blood Pressure 171/ (HH) Systolic: 02-02-2018 no na me [facility] 72mm[Hg] 120 mm[Hg] 09:44-0500 ([id number]) Diastolic: 60 - 80 mm[Hg] Blood Pressure 116/ (L) Systolic: 02-01-2018 no na me [facility] 45mm[Hg] 120 mm[Hg] 12:10-0500 ([id number]) Diastolic: 60 - 80 mm[Hg] Blood Pressure 172/ (HH) Systolic: 02-01-2018 no na me [facility] 78mm[Hg] 120 mm[Hg] 12:06-0500 ([id number]) Diastolic: 60 - 80 mm[Hg] Blood Pressure 172/ (HH) Systolic: 02-01-2018 no na me [facility] 78mm[Hg] 120 mm[Hg] 09:43-0500 ([id number]) Diastolic: 60 - 80 mm[Hg] Blood Pressure 145/ (no code) Systolic: 01-31-2018 no n [facility] 61mm[Hg] 120 mm[Hg] 08:21-0500 ([id number]) Diastolic: 60 - 80 mm[Hg] Blood Pressure 159/ (no code) Systolic: 01-30-2018 no n [facility] 58mm[Hg] 120 mm[Hg] 10:45-0500 ([id number]) Diastolic: 60 - 80 mm[Hg] Blood Pressure 176/ (HH) Systolic: 01-30-2018 no na me [facility] 73mm[Hg] 120 mm[Hg] 10:42-0500 ([id number]) Diastolic: 60 - 80 mm[Hg] Blood Pressure 164/ (H) Systolic: 01-29-2018 no na me [facility] 83mm[Hg] 120 mm[Hg] 10:22-0500 ([id number]) Diastolic: 60 - 80 mm[Hg] Blood Pressure 134/ (no code) Systolic: 01-28-2018 no n lashonda [facility] 70mm[Hg] 120 mm[Hg] 08:39-0500 ([id number]) Diastolic: 60 - 80 mm[Hg] Blood Pressure 144/ (no code) Systolic: 01-27-2018 no n lashonda [facility] 79mm[Hg] 120 mm[Hg] 10:15-0500 ([id number]) Diastolic: 60 - 80 mm[Hg] Blood Pressure 133/ (no code) Systolic: 01-26-2018 no n lashonda [facility] 63mm[Hg] 120 mm[Hg] 14:14-0500 ([id number]) Diastolic: 60 - 80 mm[Hg] Blood Pressure 133/ (no code) Systolic: 01-26-2018 no n lashonda [facility] 63mm[Hg] 120 mm[Hg] 09:58-0500 ([id number]) Diastolic: 60 - 80 mm[Hg] Blood Pressure 144/ (no code) Systolic: 01-25-2018 no n lashonda [facility] 72mm[Hg] 120 mm[Hg] 13:01-0500 ([id number]) Diastolic: 60 - 80 mm[Hg] Blood Pressure 144/ (no code) Systolic: 01-25-2018 no n lashonda [facility] 72mm[Hg] 120 mm[Hg] 08:58-0500 ([id number]) Diastolic: 60 - 80 mm[Hg] Blood Pressure 119/ (no code) Systolic: 01-24-2018 no n lashonda [facility] 57mm[Hg] 120 mm[Hg] 08:28-0500 ([id number]) Diastolic: 60 - 80 mm[Hg] Blood Pressure 109/ (no code) Systolic: 01-23-2018 no n lashonda [facility] 61mm[Hg] 120 mm[Hg] 10:33-0400 ([id number]) Diastolic: 60 - 80 mm[Hg] Blood Pressure 148/ (no code) Systolic: 01-22-2018 no n lashonda [facility] 69mm[Hg] 120 mm[Hg] 10:08-0400 ([id number]) Diastolic: 60 - 80 mm[Hg] Blood Pressure 166/ (H) Systolic: 01-21-2018 no na me [facility] 75mm[Hg] 120 mm[Hg] 11:100400 ([id number]) Diastolic: 60 - 80 mm[Hg] Blood Pressure 124/ (no code) Systolic: 01-20-2018 no n lashonda [facility] 60mm[Hg] 120 mm[Hg] 09:36-0400 ([id number]) Diastolic: 60 - 80 mm[Hg] Blood Pressure 161/ (H) Systolic: 01-19-2018 no na me [facility] 73mm[Hg] 120 mm[Hg] 14:27-0400 ([id number]) Diastolic: 60 - 80 mm[Hg] Blood Pressure 131/ (no code) Systolic: 01-14-2018 no n lashonda [facility] 64mm[Hg] 120 mm[Hg] 09:02-0400 ([id number]) Diastolic: 60 - 80 mm[Hg] Blood Pressure 138/ (no code) Systolic: 01-13-2018 no n lashonda [facility] 65mm[Hg] 120 mm[Hg] 15:48-0400 ([id number]) Diastolic: 60 - 80 mm[Hg] Blood Pressure 154/ (no code) Systolic: 01-12-2018 no n lashonda [facility] 64mm[Hg] 120 mm[Hg] 14:070400 ([id number]) Diastolic: 60 - 80 mm[Hg] Blood Pressure 158/ (no code) Systolic: 01-12-2018 no n lashonda [facility] 64mm[Hg] 120 mm[Hg] 09:020400 ([id number]) Diastolic: 60 - 80 mm[Hg] Blood Pressure 157/ (no code) Systolic: 01-11-2018 no n lashonda [facility] 76mm[Hg] 120 mm[Hg] 10:220400 ([id number]) Diastolic: 60 - 80 mm[Hg] Blood Pressure 96/ (no code) Systolic: 01-10-2018 no n lashonda [facility] 59mm[Hg] 120 mm[Hg] 10:46-0400 ([id number]) Diastolic: 60 - 80 mm[Hg] Blood Pressure 172/ (HH) Systolic: 01-10-2018 no na me [facility] 84mm[Hg] 120 mm[Hg] 09:140400 ([id number]) Diastolic: 60 - 80 mm[Hg] Blood Pressure 134/ (no code) Systolic: 01-09-2018 no n lashonda [facility] 64mm[Hg] 120 mm[Hg] 09:41-0400 ([id number]) Diastolic: 60 - 80 mm[Hg] Blood Pressure 136/ (no code) Systolic: 01-08-2018 no n lashonda [facility] 66mm[Hg] 120 mm[Hg] 17:04-0400 ([id number]) Diastolic: 60 - 80 mm[Hg] Blood Pressure 136/ (no code) Systolic: 01-08-2018 no n lashonda [facility] 66mm[Hg] 120 mm[Hg] 09:280400 ([id number]) Diastolic: 60 - 80 mm[Hg] Blood Pressure 122/ (no code) Systolic: 01-06-2018 no n lashonda [facility] 54mm[Hg] 120 mm[Hg] 13:300400 ([id number]) Diastolic: 60 - 80 mm[Hg] Blood Pressure 122/ (no code) Systolic: 01-06-2018 no n lashonda [facility] 54mm[Hg] 120 mm[Hg] 09:0400 ([id number]) Diastolic: 60 - 80 mm[Hg] Blood Pressure 118/ (no code) Systolic: 01-05-2018 no n lashonda [facility] 55mm[Hg] 120 mm[Hg] 09:550400 ([id number]) Diastolic: 60 - 80 mm[Hg] Blood Pressure 167/ (H) Systolic: 01-04-2018 no na me [facility] 69mm[Hg] 120 mm[Hg] 10:150400 ([id number]) Diastolic: 60 - 80 mm[Hg] Blood Pressure 105/ (no code) Systolic: 12-29-2017 no n lashonda [facility] 61mm[Hg] 120 mm[Hg] 12:0 ([id number]) Diastolic: 60 - 80 mm[Hg] Heart rate 77 /min (no code) 60 - 100 /min 2019 no name [facility] 06:03-0400 ([id number]) Heart rate 79 /min (no code) 60 - 100 /min 09-05-2019 no name [facility] 12:17-0400 ([id number]) Heart rate 53 /min (no code) 60 - 100 /min 08-30-2019 no name [facility] 07:28-0400 ([id number]) Heart rate 69 /min (no code) 60 - 100 /min 08-29-2019 no name [facility] 04:33-0400 ([id number]) Heart rate 77 /min (no code) 60 - 100 /min 08-26-2019 no name [facility] 05:23-0400 ([id number]) Heart rate 80 /min (no code) 60 - 100 /min 08-25-2019 no name [facility] 09:58-0400 ([id number]) Heart rate 72 /min (no code) 60 - 100 /min 08-24-2019 no name [facility] 05:12-0400 ([id number]) Heart rate 75 /min (no code) 60 - 100 /min 08-23-2019 no name [facility] 07:21-0400 ([id number]) Heart rate 57 /min (no code) 60 - 100 /min 08-22-2019 no name [facility] 07:39-0400 ([id number]) Heart rate 79 /min (no code) 60 - 100 /min 08-19-2019 no name [facility] 06:12-0400 ([id number]) Heart rate 73 /min (no code) 60 - 100 /min 08-17-2019 no name [facility] 07:10-0400 ([id number]) Heart rate 56 /min (no code) 60 - 100 /min 08-16-2019 no name [facility] 10:13-0400 ([id number]) Heart rate 66 /min (no code) 60 - 100 /min 08-12-2019 no name [facility] 06:03-0400 ([id number]) Heart rate 75 /min (no code) 60 - 100 /min 08-10-2019 no name [facility] 06:30-0400 ([id number]) Heart rate 62 /min (no code) 60 - 100 /min 08-09-2019 no name [facility] 09:48-0400 ([id number]) Heart rate 61 /min (no code) 60 - 100 /min 08-08-2019 no name [facility] 08:29-0400 ([id number]) Heart rate 72 /min (no code) 60 - 100 /min 08-05-2019 no name [facility] 06:03-0400 ([id number]) Heart rate 73 /min (no code) 60 - 100 /min 08-03-2019 no name [facility] 05:31-0400 ([id number]) Heart rate 64 /min (no code) 60 - 100 /min 08-02-2019 no name [facility] 07:15-0400 ([id number]) Heart rate 72 /min (no code) 60 - 100 /min 08-01-2019 no name [facility] 04:54-0400 ([id number]) Heart rate 67 /min (no code) 60 - 100 /min 07-29-2019 no name [facility] 06:20-0400 ([id number]) Heart rate 75 /min (no code) 60 - 100 /min 07-27-2019 no name [facility] 05:22-0400 ([id number]) Heart rate 63 /min (no code) 60 - 100 /min 07-26-2019 no name [facility] 10:05-0400 ([id number]) Heart rate 64 /min (no code) 60 - 100 /min 07-23-2019 no name [facility] 06:46-0400 ([id number]) Heart rate 80 /min (no code) 60 - 100 /min 07-22-2019 no name [facility] 05:15-0400 ([id number]) Heart rate 67 /min (no code) 60 - 100 /min 07-20-2019 no name [facility] 03:34-0400 ([id number]) Heart rate 65 /min (no code) 60 - 100 /min 07-19-2019 no name [facility] 10:06-0400 ([id number]) Heart rate 67 /min (no code) 60 - 100 /min 07-18-2019 no name [facility] 09:16-0400 ([id number]) Heart rate 74 /min (no code) 60 - 100 /min 07-15-2019 no name [facility] 06:02-0400 ([id number]) Heart rate 71 /min (no code) 60 - 100 /min 07-14-2019 no name [facility] 05:23-0400 ([id number]) Heart rate 80 /min (no code) 60 - 100 /min 07-13-2019 no name [facility] 06:36-0400 ([id number]) Heart rate 85 /min (no code) 60 - 100 /min 07-12-2019 no name [facility] 07:40-0400 ([id number]) Heart rate 65 /min (no code) 60 - 100 /min 07-11-2019 no name [facility] 09:13-0400 ([id number]) Heart rate 69 /min (no code) 60 - 100 /min 07-09-2019 no name [facility] 11:05-0400 ([id number]) Heart rate 74 /min (no code) 60 - 100 /min 07-07-2019 no name [facility] 05:25-0400 ([id number]) Heart rate 74 /min (no code) 60 - 100 /min 07-06-2019 no name [facility] 05:28-0400 ([id number]) Heart rate 62 /min (no code) 60 - 100 /min 07-05-2019 no name [facility] 09:40-0400 ([id number]) Heart rate 66 /min (no code) 60 - 100 /min 07-04-2019 no name [facility] 08:52-0400 ([id number]) Heart rate 66 /min (no code) 60 - 100 /min 07-01-2019 no name [facility] 06:29-0400 ([id number]) Heart rate 64 /min (no code) 60 - 100 /min 06-30-2019 no name [facility] 09:52-0400 ([id number]) Heart rate 71 /min (no code) 60 - 100 /min 06-29-2019 no name [facility] 06:04-0400 ([id number]) Heart rate 71 /min (no code) 60 - 100 /min 06-28-2019 no name [facility] 10:05-0400 ([id number]) Heart rate 69 /min (no code) 60 - 100 /min 06-27-2019 no name [facility] 10:02-0400 ([id number]) Heart rate 63 /min (no code) 60 - 100 /min 06-24-2019 no name [facility] 10:56-0400 ([id number]) Heart rate 77 /min (no code) 60 - 100 /min 06-22-2019 no name [facility] 06:02-0400 ([id number]) Heart rate 65 /min (no code) 60 - 100 /min 06-21-2019 no name [facility] 09:21-0400 ([id number]) Heart rate 66 /min (no code) 60 - 100 /min 06-20-2019 no name [facility] 09:19-0400 ([id number]) Heart rate 63 /min (no code) 60 - 100 /min 06-18-2019 no name [facility] 09:25-0400 ([id number]) Heart rate 82 /min (no code) 60 - 100 /min 06-17-2019 no name [facility] 06:54-0400 ([id number]) Heart rate 77 /min (no code) 60 - 100 /min 06-15-2019 no name [facility] 05:41-0400 ([id number]) Heart rate 98 /min (no code) 60 - 100 /min 06-14-2019 no name [facility] 10:48-0400 ([id number]) Heart rate 62 /min (no code) 60 - 100 /min 06-13-2019 no name [facility] 09:53-0400 ([id number]) Heart rate 66 /min (no code) 60 - 100 /min 06-10-2019 no name [facility] 05:15-0400 ([id number]) Heart rate 77 /min (no code) 60 - 100 /min 06-08-2019 no name [facility] 07:58-0400 ([id number]) Heart rate 65 /min (no code) 60 - 100 /min 06-07-2019 no name [facility] 10:09-0400 ([id number]) Heart rate 62 /min (no code) 60 - 100 /min 06-06-2019 no name [facility] 08:39-0400 ([id number]) Heart rate 78 /min (no code) 60 - 100 /min 06-04-2019 no name [facility] 07:42-0400 ([id number]) Heart rate 66 /min (no code) 60 - 100 /min 06-03-2019 no name [facility] 06:37-0400 ([id number]) Heart rate 64 /min (no code) 60 - 100 /min 06-01-2019 no name [facility] 06:07-0400 ([id number]) Heart rate 65 /min (no code) 60 - 100 /min 05-31-2019 no name [facility] 09:00-0400 ([id number]) Heart rate 65 /min (no code) 60 - 100 /min 05-30-2019 no name [facility] 09:13-0400 ([id number]) Heart rate 66 /min (no code) 60 - 100 /min 05-28-2019 no name [facility] 04:30-0500 ([id number]) Heart rate 75 /min (no code) 60 - 100 /min 05-27-2019 no name [facility] 05:50-0500 ([id number]) Heart rate 65 /min (no code) 60 - 100 /min 05-26-2019 no name [facility] 05:57-0500 ([id number]) Heart rate 60 /min (no code) 60 - 100 /min 05-25-2019 no name [facility] 04:46-0500 ([id number]) Heart rate 64 /min (no code) 60 - 100 /min 05-24-2019 no name [facility] 04:02-0500 ([id number]) Heart rate 68 /min (no code) 60 - 100 /min 05-23-2019 no name [facility] 03:50-0500 ([id number]) Heart rate 63 /min (no code) 60 - 100 /min 05-21-2019 no name [facility] 07:55-0500 ([id number]) Heart rate 69 /min (no code) 60 - 100 /min 05-20-2019 no name [facility] 05:12-0500 ([id number]) Heart rate 62 /min (no code) 60 - 100 /min 05-19-2019 no name [facility] 04:17-0500 ([id number]) Heart rate 72 /min (no code) 60 - 100 /min 05-18-2019 no name [facility] 04:04-0500 ([id number]) Heart rate 68 /min (no code) 60 - 100 /min 05-17-2019 no name [facility] 06:41-0500 ([id number]) Heart rate 71 /min (no code) 60 - 100 /min 05-16-2019 no name [facility] 08:04-0500 ([id number]) Heart rate 59 /min (no code) 60 - 100 /min 05-14-2019 no name [facility] 05:03-0500 ([id number]) Heart rate 65 /min (no code) 60 - 100 /min 05-13-2019 no name [facility] 12:31-0500 ([id number]) Heart rate 62 /min (no code) 60 - 100 /min 05-11-2019 no name [facility] 10:51-0500 ([id number]) Heart rate 62 /min (no code) 60 - 100 /min 05-10-2019 no name [facility] 06:11-0500 ([id number]) Heart rate 64 /min (no code) 60 - 100 /min 05-09-2019 no name [facility] 07:09-0500 ([id number]) Heart rate 81 /min (no code) 60 - 100 /min 05-07-2019 no name [facility] 05:25-0500 ([id number]) Heart rate 69 /min (no code) 60 - 100 /min 05-06-2019 no name [facility] 05:36-0500 ([id number]) Heart rate 59 /min (no code) 60 - 100 /min 05-04-2019 no name [facility] 11:45-0500 ([id number]) Heart rate 59 /min (no code) 60 - 100 /min 05-04-2019 no name [facility] 03:48-0500 ([id number]) Heart rate 77 /min (no code) 60 - 100 /min 05-03-2019 no name [facility] 08:12-0500 ([id number]) Heart rate 67 /min (no code) 60 - 100 /min 05-02-2019 no name [facility] 10:49-0500 ([id number]) Heart rate 67 /min (no code) 60 - 100 /min 04-29-2019 no name [facility] 03:22-0500 ([id number]) Heart rate 67 /min (no code) 60 - 100 /min 04-27-2019 no name [facility] 08:14-0500 ([id number]) Heart rate 71 /min (no code) 60 - 100 /min 04-26-2019 no name [facility] 06:28-0500 ([id number]) Heart rate 83 /min (no code) 60 - 100 /min 04-25-2019 no name [facility] 08:36-0500 ([id number]) Heart rate 64 /min (no code) 60 - 100 /min 04-22-2019 no name [facility] 05:01-0500 ([id number]) Heart rate 65 /min (no code) 60 - 100 /min 04-21-2019 no name [facility] 05:20-0500 ([id number]) Heart rate 60 /min (no code) 60 - 100 /min 04-20-2019 no name [facility] 05:15-0500 ([id number]) Heart rate 69 /min (no code) 60 - 100 /min 04-19-2019 no name [facility] 08:40-0500 ([id number]) Heart rate 69 /min (no code) 60 - 100 /min 04-18-2019 no name [facility] 06:28-0500 ([id number]) Heart rate 64 /min (no code) 60 - 100 /min 04-16-2019 no name [facility] 09:31-0500 ([id number]) Heart rate 69 /min (no code) 60 - 100 /min 04-15-2019 no name [facility] 04:22-0500 ([id number]) Heart rate 82 /min (no code) 60 - 100 /min 04-15-2019 no name [facility] 04:19-0500 ([id number]) Heart rate 68 /min (no code) 60 - 100 /min 04-14-2019 no name [facility] 06:17-0500 ([id number]) Heart rate 75 /min (no code) 60 - 100 /min 04-13-2019 no name [facility] 04:19-0500 ([id number]) Heart rate 74 /min (no code) 60 - 100 /min 04-12-2019 no name [facility] 05:40-0500 ([id number]) Heart rate 81 /min (no code) 60 - 100 /min 04-11-2019 no name [facility] 08:52-0500 ([id number]) Heart rate 84 /min (no code) 60 - 100 /min 04-10-2019 no name [facility] 04:52-0500 ([id number]) Heart rate 65 /min (no code) 60 - 100 /min 04-09-2019 no name [facility] 05:28-0500 ([id number]) Heart rate 72 /min (no code) 60 - 100 /min 04-08-2019 no name [facility] 06:55-0500 ([id number]) Heart rate 69 /min (no code) 60 - 100 /min 04-06-2019 no name [facility] 04:17-0500 ([id number]) Heart rate 74 /min (no code) 60 - 100 /min 04-05-2019 no name [facility] 07:45-0500 ([id number]) Heart rate 67 /min (no code) 60 - 100 /min 04-04-2019 no name [facility] 04:46-0500 ([id number]) Heart rate 68 /min (no code) 60 - 100 /min 04-03-2019 no name [facility] 04:22-0500 ([id number]) Heart rate 77 /min (no code) 60 - 100 /min 04-02-2019 no name [facility] 06:29-0500 ([id number]) Heart rate 75 /min (no code) 60 - 100 /min 04-01-2019 no name [facility] 04:50-0500 ([id number]) Heart rate 101 /min (no code) 60 - 100 /min 03-31-2019 no name [facility] 04:33-0500 ([id number]) Heart rate 69 /min (no code) 60 - 100 /min 03-30-2019 no name [facility] 04:44-0500 ([id number]) Heart rate 74 /min (no code) 60 - 100 /min 03-29-2019 no name [facility] 06:55-0500 ([id number]) Heart rate 72 /min (no code) 60 - 100 /min 03-28-2019 no name [facility] 06:42-0500 ([id number]) Heart rate 72 /min (no code) 60 - 100 /min 03-28-2019 no name [facility] 03:21-0500 ([id number]) Heart rate 79 /min (no code) 60 - 100 /min 03-26-2019 no name [facility] 04:19-0500 ([id number]) Heart rate 71 /min (no code) 60 - 100 /min 03-25-2019 no name [facility] 04:08-0500 ([id number]) Heart rate 75 /min (no code) 60 - 100 /min 03-22-2019 no name [facility] 07:34-0500 ([id number]) Heart rate 73 /min (no code) 60 - 100 /min 03-22-2019 no name [facility] 07:32-0500 ([id number]) Heart rate 73 /min (no code) 60 - 100 /min 03-21-2019 no name [facility] 08:18-0500 ([id number]) Heart rate 71 /min (no code) 60 - 100 /min 03-18-2019 no name [facility] 04:05-0500 ([id number]) Heart rate 88 /min (no code) 60 - 100 /min 03-15-2019 no name [facility] 06:42-0500 ([id number]) Heart rate 71 /min (no code) 60 - 100 /min 03-14-2019 no name [facility] 09:10-0500 ([id number]) Heart rate 74 /min (no code) 60 - 100 /min 03-13-2019 no name [facility] 04:19-0500 ([id number]) Heart rate 75 /min (no code) 60 - 100 /min 03-12-2019 no name [facility] 07:59-0500 ([id number]) Heart rate 74 /min (no code) 60 - 100 /min 03-11-2019 no name [facility] 06:14-0500 ([id number]) Heart rate 74 /min (no code) 60 - 100 /min 03-10-2019 no name [facility] 06:09-0500 ([id number]) Heart rate 69 /min (no code) 60 - 100 /min 03-09-2019 no name [facility] 04:56-0500 ([id number]) Heart rate 79 /min (no code) 60 - 100 /min 03-08-2019 no name [facility] 08:05-0500 ([id number]) Heart rate 77 /min (no code) 60 - 100 /min 03-07-2019 no name [facility] 07:16-0500 ([id number]) Heart rate 68 /min (no code) 60 - 100 /min 03-05-2019 no name [facility] 08:24-0500 ([id number]) Heart rate 73 /min (no code) 60 - 100 /min 03-05-2019 no name [facility] 08:19-0500 ([id number]) Heart rate 73 /min (no code) 60 - 100 /min 03-04-2019 no name [facility] 05:32-0500 ([id number]) Heart rate 66 /min (no code) 60 - 100 /min 03-02-2019 no name [facility] 04:56-0500 ([id number]) Heart rate 90 /min (no code) 60 - 100 /min 03-01-2019 no name [facility] 08:18-0500 ([id number]) Heart rate 69 /min (no code) 60 - 100 /min 02-28-2019 no name [facility] 05:46-0500 ([id number]) Heart rate 66 /min (no code) 60 - 100 /min 02-27-2019 no name [facility] 03:31-0500 ([id number]) Heart rate 71 /min (no code) 60 - 100 /min 02-24-2019 no name [facility] 09:46-0500 ([id number]) Heart rate 71 /min (no code) 60 - 100 /min 02-23-2019 no name [facility] 06:24-0500 ([id number]) Heart rate 67 /min (no code) 60 - 100 /min 02-22-2019 no name [facility] 08:16-0500 ([id number]) Heart rate 76 /min (no code) 60 - 100 /min 02-21-2019 no name [facility] 09:55-0500 ([id number]) Heart rate 81 /min (no code) 60 - 100 /min 02-19-2019 no name [facility] 05:35-0500 ([id number]) Heart rate 82 /min (no code) 60 - 100 /min 02-18-2019 no name [facility] 04:47-0500 ([id number]) Heart rate 76 /min (no code) 60 - 100 /min 02-17-2019 no name [facility] 05:00-0500 ([id number]) Heart rate 80 /min (no code) 60 - 100 /min 02-16-2019 no name [facility] 04:53-0500 ([id number]) Heart rate 75 /min (no code) 60 - 100 /min 02-15-2019 no name [facility] 04:22-0500 ([id number]) Heart rate 79 /min (no code) 60 - 100 /min 02-14-2019 no name [facility] 04:47-0500 ([id number]) Heart rate 78 /min (no code) 60 - 100 /min 02-13-2019 no name [facility] 02:42-0500 ([id number]) Heart rate 66 /min (no code) 60 - 100 /min 02-12-2019 no name [facility] 03:22-0500 ([id number]) Heart rate 67 /min (no code) 60 - 100 /min 02-11-2019 no name [facility] 05:23-0500 ([id number]) Heart rate 53 /min (no code) 60 - 100 /min 02-10-2019 no name [facility] 11:04-0500 ([id number]) Heart rate 53 /min (no code) 60 - 100 /min 02-09-2019 no name [facility] 05:08-0500 ([id number]) Heart rate 61 /min (no code) 60 - 100 /min 02-08-2019 no name [facility] 06:58-0500 ([id number]) Heart rate 58 /min (no code) 60 - 100 /min 02-07-2019 no name [facility] 04:25-0500 ([id number]) Heart rate 66 /min (no code) 60 - 100 /min 02-06-2019 no name [facility] 03:40-0500 ([id number]) Heart rate 56 /min (no code) 60 - 100 /min 02-05-2019 no name [facility] 04:26-0500 ([id number]) Heart rate 54 /min (no code) 60 - 100 /min 02-04-2019 no name [facility] 05:20-0500 ([id number]) Heart rate 54 /min (no code) 60 - 100 /min 02-04-2019 no name [facility] 03:21-0500 ([id number]) Heart rate 50 /min (no code) 60 - 100 /min 02-02-2019 no name [facility] 07:08-0500 ([id number]) Heart rate 49 /min (LL) 60 - 100 /min 02-01-2019 no name [facility] 04:42-0500 ([id number]) Heart rate 52 /min (no code) 60 - 100 /min 01-31-2019 no name [facility] 08:11-0500 ([id number]) Heart rate 52 /min (no code) 60 - 100 /min 01-29-2019 no name [facility] 03:50-0500 ([id number]) Heart rate 52 /min (no code) 60 - 100 /min 01-28-2019 no name [facility] 03:12-0500 ([id number]) Heart rate 68 /min (no code) 60 - 100 /min 01-26-2019 no name [facility] 05:04-0500 ([id number]) Heart rate 56 /min (no code) 60 - 100 /min 01-25-2019 no name [facility] 07:39-0500 ([id number]) Heart rate 58 /min (no code) 60 - 100 /min 01-24-2019 no name [facility] 05:34-0500 ([id number]) Heart rate 58 /min (no code) 60 - 100 /min 01-23-2019 no name [facility] 04:06-0500 ([id number]) Heart rate 60 /min (no code) 60 - 100 /min 01-22-2019 no name [facility] 05:56-0400 ([id number]) Heart rate 56 /min (no code) 60 - 100 /min 01-21-2019 no name [facility] 05:17-0400 ([id number]) Heart rate 56 /min (no code) 60 - 100 /min 01-19-2019 no name [facility] 06:19-0400 ([id number]) Heart rate 59 /min (no code) 60 - 100 /min 01-18-2019 no name [facility] 08:49-0400 ([id number]) Heart rate 54 /min (no code) 60 - 100 /min 01-18-2019 no name [facility] 08:46-0400 ([id number]) Heart rate 49 /min (LL) 60 - 100 /min 01-17-2019 no name [facility] 12:11-0400 ([id number]) Heart rate 49 /min (LL) 60 - 100 /min 01-17-2019 no name [facility] 09:23-0400 ([id number]) Heart rate 59 /min (no code) 60 - 100 /min 01-16-2019 no name [facility] 10:18-0400 ([id number]) Heart rate 51 /min (no code) 60 - 100 /min 01-15-2019 no name [facility] 14:23-0400 ([id number]) Heart rate 51 /min (no code) 60 - 100 /min 01-15-2019 no name [facility] 10:01-0400 ([id number]) Heart rate 53 /min (no code) 60 - 100 /min 01-14-2019 no name [facility] 10:22-0400 ([id number]) Heart rate 59 /min (no code) 60 - 100 /min 01-13-2019 no name [facility] 11:11-0400 ([id number]) Heart rate 56 /min (no code) 60 - 100 /min 01-12-2019 no name [facility] 10:03-0400 ([id number]) Heart rate 56 /min (no code) 60 - 100 /min 01-11-2019 no name [facility] 11:26-0400 ([id number]) Heart rate 56 /min (no code) 60 - 100 /min 01-11-2019 no name [facility] 09:41-0400 ([id number]) Heart rate 50 /min (no code) 60 - 100 /min 01-10-2019 no name [facility] 10:57-0400 ([id number]) Heart rate 51 /min (no code) 60 - 100 /min 01-09-2019 no name [facility] 10:04-0400 ([id number]) Heart rate 52 /min (no code) 60 - 100 /min 01-08-2019 no name [facility] 10:42-0400 ([id number]) Heart rate 55 /min (no code) 60 - 100 /min 01-07-2019 no name [facility] 10:39-0400 ([id number]) Heart rate 59 /min (no code) 60 - 100 /min 01-06-2019 no name [facility] 12:59-0400 ([id number]) Heart rate 55 /min (no code) 60 - 100 /min 01-05-2019 no name [facility] 15:44-0400 ([id number]) Heart rate 55 /min (no code) 60 - 100 /min 01-05-2019 no name [facility] 10:09-0400 ([id number]) Heart rate 50 /min (no code) 60 - 100 /min 01-04-2019 no name [facility] 12:18-0400 ([id number]) Heart rate 50 /min (no code) 60 - 100 /min 01-03-2019 no name [facility] 10:48-0400 ([id number]) Heart rate 55 /min (no code) 60 - 100 /min 01-02-2019 no name [facility] 13:42-0400 ([id number]) Heart rate 53 /min (no code) 60 - 100 /min 01-01-2019 no name [facility] 11:16-0400 ([id number]) Heart rate 50 /min (no code) 60 - 100 /min 12-31-2018 no name [facility] 11:22-0400 ([id number]) Heart rate 49 /min (LL) 60 - 100 /min 12-30-2018 no name [facility] 10:18-0400 ([id number]) Heart rate 51 /min (no code) 60 - 100 /min 12-29-2018 no name [facility] 10:03-0400 ([id number]) Heart rate 55 /min (no code) 60 - 100 /min 12-28-2018 no name [facility] 16:07-0400 ([id number]) Heart rate 54 /min (no code) 60 - 100 /min 12-28-2018 no name [facility] 14:50-0400 ([id number]) Heart rate 56 /min (no code) 60 - 100 /min 12-28-2018 no name [facility] 14:48-0400 ([id number]) Heart rate 57 /min (no code) 60 - 100 /min 12-27-2018 no name [facility] 13:18-0400 ([id number]) Heart rate 48 /min (LL) 60 - 100 /min 12-27-2018 no name [facility] 13:14-0400 ([id number]) Heart rate 51 /min (no code) 60 - 100 /min 12-26-2018 no name [facility] 09:04-0400 ([id number]) Heart rate 62 /min (no code) 60 - 100 /min 12-25-2018 no name [facility] 13:09-0400 ([id number]) Heart rate 47 /min (LL) 60 - 100 /min 12-25-2018 no name [facility] 11:08-0400 ([id number]) Heart rate 56 /min (no code) 60 - 100 /min 12-24-2018 no name [facility] 11:31-0400 ([id number]) Heart rate 48 /min (LL) 60 - 100 /min 12-23-2018 no name [facility] 10:59-0400 ([id number]) Heart rate 54 /min (no code) 60 - 100 /min 12-22-2018 no name [facility] 10:52-0400 ([id number]) Heart rate 53 /min (no code) 60 - 100 /min 12-21-2018 no name [facility] 10:36-0400 ([id number]) Heart rate 60 /min (no code) 60 - 100 /min 12-20-2018 no name [facility] 10:23-0400 ([id number]) Heart rate 52 /min (no code) 60 - 100 /min 12-19-2018 no name [facility] 09:43-0400 ([id number]) Heart rate 53 /min (no code) 60 - 100 /min 12-18-2018 no name [facility] 11:53-0400 ([id number]) Heart rate 52 /min (no code) 60 - 100 /min 12-17-2018 no name [facility] 17:05-0400 ([id number]) Heart rate 59 /min (no code) 60 - 100 /min 12-17-2018 no name [facility] 12:08-0400 ([id number]) Heart rate 52 /min (no code) 60 - 100 /min 12-15-2018 no name [facility] 10:19-0400 ([id number]) Heart rate 50 /min (no code) 60 - 100 /min 12-14-2018 no name [facility] 12:18-0400 ([id number]) Heart rate 52 /min (no code) 60 - 100 /min 12-14-2018 no name [facility] 10:26-0400 ([id number]) Heart rate 54 /min (no code) 60 - 100 /min 12-13-2018 no name [facility] 10:29-0400 ([id number]) Heart rate 57 /min (no code) 60 - 100 /min 12-12-2018 no name [facility] 10:15-0400 ([id number]) Heart rate 57 /min (no code) 60 - 100 /min 12-11-2018 no name [facility] 09:44-0400 ([id number]) Heart rate 53 /min (no code) 60 - 100 /min 12-10-2018 no name [facility] 12:08-0400 ([id number]) Heart rate 53 /min (no code) 60 - 100 /min 12-09-2018 no name [facility] 11:28-0400 ([id number]) Heart rate 59 /min (no code) 60 - 100 /min 12-08-2018 no name [facility] 10:41-0400 ([id number]) Heart rate 57 /min (no code) 60 - 100 /min 12-07-2018 no name [facility] 11:29-0400 ([id number]) Heart rate 58 /min (no code) 60 - 100 /min 12-06-2018 no name [facility] 11:060400 ([id number]) Heart rate 50 /min (no code) 60 - 100 /min 12-04-2018 no name [facility] 10:29-0400 ([id number]) Heart rate 53 /min (no code) 60 - 100 /min 12-03-2018 no name [facility] 12:35-0400 ([id number]) Heart rate 53 /min (no code) 60 - 100 /min 12-03-2018 no name [facility] 10:03-0400 ([id number]) Heart rate 53 /min (no code) 60 - 100 /min 12-02-2018 no name [facility] 11:02-0400 ([id number]) Heart rate 53 /min (no code) 60 - 100 /min 12-01-2018 no name [facility] 11:38-0400 ([id number]) Heart rate 49 /min (LL) 60 - 100 /min 11-30-2018 no name [facility] 09:23-0400 ([id number]) Heart rate 51 /min (no code) 60 - 100 /min 11-29-2018 no name [facility] 11:24-0400 ([id number]) Heart rate 46 /min (LL) 60 - 100 /min 11-28-2018 no name [facility] 09:37-0400 ([id number]) Heart rate 49 /min (LL) 60 - 100 /min 11-27-2018 no name [facility] 09:52-0400 ([id number]) Heart rate 53 /min (no code) 60 - 100 /min 11-26-2018 no name [facility] 10:06-0400 ([id number]) Heart rate 63 /min (no code) 60 - 100 /min 11-25-2018 no name [facility] 10:25-0400 ([id number]) Heart rate 55 /min (no code) 60 - 100 /min 11-24-2018 no name [facility] 14:10-0400 ([id number]) Heart rate 50 /min (no code) 60 - 100 /min 11-24-2018 no name [facility] 09:59-0400 ([id number]) Heart rate 48 /min (LL) 60 - 100 /min 11-23-2018 no name [facility] 10:45-0400 ([id number]) Heart rate 50 /min (no code) 60 - 100 /min 11-21-2018 no name [facility] 10:48-0400 ([id number]) Heart rate 54 /min (no code) 60 - 100 /min 11-20-2018 no name [facility] 10:03-0400 ([id number]) Heart rate 51 /min (no code) 60 - 100 /min 11-19-2018 no name [facility] 11:16-0400 ([id number]) Heart rate 51 /min (no code) 60 - 100 /min 11-18-2018 no name [facility] 10:02-0400 ([id number]) Heart rate 50 /min (no code) 60 - 100 /min 11-17-2018 no name [facility] 10:04-0400 ([id number]) Heart rate 51 /min (no code) 60 - 100 /min 11-16-2018 no name [facility] 14:02-0400 ([id number]) Heart rate 57 /min (no code) 60 - 100 /min 11-15-2018 no name [facility] 17:53-0400 ([id number]) Heart rate 58 /min (no code) 60 - 100 /min 11-14-2018 no name [facility] 10:18-0400 ([id number]) Heart rate 52 /min (no code) 60 - 100 /min 11-13-2018 no name [facility] 10:09-0400 ([id number]) Heart rate 52 /min (no code) 60 - 100 /min 11-12-2018 no name [facility] 09:27-0400 ([id number]) Heart rate 56 /min (no code) 60 - 100 /min 11-11-2018 no name [facility] 10:08-0400 ([id number]) Heart rate 56 /min (no code) 60 - 100 /min 11-10-2018 no name [facility] 14:02-0400 ([id number]) Heart rate 56 /min (no code) 60 - 100 /min 11-10-2018 no name [facility] 09:17-0400 ([id number]) Heart rate 51 /min (no code) 60 - 100 /min 11-09-2018 no name [facility] 10:59-0400 ([id number]) Heart rate 51 /min (no code) 60 - 100 /min 11-08-2018 no name [facility] 10:33-0400 ([id number]) Heart rate 48 /min (LL) 60 - 100 /min 11-06-2018 no name [facility] 11:28-0400 ([id number]) Heart rate 51 /min (no code) 60 - 100 /min 11-06-2018 no name [facility] 11:17-0400 ([id number]) Heart rate 54 /min (no code) 60 - 100 /min 11-05-2018 no name [facility] 17:19-0400 ([id number]) Heart rate 56 /min (no code) 60 - 100 /min 11-05-2018 no name [facility] 10:32-0400 ([id number]) Heart rate 58 /min (no code) 60 - 100 /min 11-04-2018 no name [facility] 10:10-0400 ([id number]) Heart rate 54 /min (no code) 60 - 100 /min 11-03-2018 no name [facility] 10:00-0400 ([id number]) Heart rate 59 /min (no code) 60 - 100 /min 11-01-2018 no name [facility] 10:00-0400 ([id number]) Heart rate 51 /min (no code) 60 - 100 /min 10-31-2018 no name [facility] 10:00-0400 ([id number]) Heart rate 61 /min (no code) 60 - 100 /min 10-29-2018 no name [facility] 10:52-0400 ([id number]) Heart rate 55 /min (no code) 60 - 100 /min 10-28-2018 no name [facility] 08:54-0400 ([id number]) Heart rate 50 /min (no code) 60 - 100 /min 10-27-2018 no name [facility] 18:49-0400 ([id number]) Heart rate 59 /min (no code) 60 - 100 /min 10-26-2018 no name [facility] 14:47-0400 ([id number]) Heart rate 59 /min (no code) 60 - 100 /min 10-26-2018 no name [facility] 09:30-0400 ([id number]) Heart rate 51 /min (no code) 60 - 100 /min 10-25-2018 no name [facility] 11:05-0400 ([id number]) Heart rate 56 /min (no code) 60 - 100 /min 10-24-2018 no name [facility] 09:25-0400 ([id number]) Heart rate 48 /min (LL) 60 - 100 /min 10-23-2018 no name [facility] 10:44-0400 ([id number]) Heart rate 50 /min (no code) 60 - 100 /min 10-22-2018 no name [facility] 11:20-0400 ([id number]) Heart rate 47 /min (LL) 60 - 100 /min 10-21-2018 no name [facility] 10:47-0400 ([id number]) Heart rate 95 /min (no code) 60 - 100 /min 10-21-2018 no name [facility] 10:42-0400 ([id number]) Heart rate 45 /min (LL) 60 - 100 /min 10-20-2018 no name [facility] 10:10-0400 ([id number]) Heart rate 49 /min (LL) 60 - 100 /min 10-19-2018 no name [facility] 14:21-0400 ([id number]) Heart rate 52 /min (no code) 60 - 100 /min 10-19-2018 no name [facility] 14:19-0400 ([id number]) Heart rate 52 /min (no code) 60 - 100 /min 10-19-2018 no name [facility] 09:56-0400 ([id number]) Heart rate 53 /min (no code) 60 - 100 /min 10-18-2018 no name [facility] 11:26-0400 ([id number]) Heart rate 48 /min (LL) 60 - 100 /min 10-17-2018 no name [facility] 10:19-0400 ([id number]) Heart rate 51 /min (no code) 60 - 100 /min 10-16-2018 no name [facility] 10:48-0400 ([id number]) Heart rate 52 /min (no code) 60 - 100 /min 10-15-2018 no name [facility] 10:36-0400 ([id number]) Heart rate 53 /min (no code) 60 - 100 /min 10-14-2018 no name [facility] 10:21-0400 ([id number]) Heart rate 52 /min (no code) 60 - 100 /min 10-13-2018 no name [facility] 10:24-0400 ([id number]) Heart rate 51 /min (no code) 60 - 100 /min 10-12-2018 no name [facility] 10:04-0400 ([id number]) Heart rate 52 /min (no code) 60 - 100 /min 10-11-2018 no name [facility] 10:05-0400 ([id number]) Heart rate 51 /min (no code) 60 - 100 /min 10-10-2018 no name [facility] 10:05-0400 ([id number]) Heart rate 53 /min (no code) 60 - 100 /min 10-09-2018 no name [facility] 10:54-0400 ([id number]) Heart rate 58 /min (no code) 60 - 100 /min 10-09-2018 no name [facility] 10:52-0400 ([id number]) Heart rate 46 /min (LL) 60 - 100 /min 10-08-2018 no name [facility] 10:26-0400 ([id number]) Heart rate 53 /min (no code) 60 - 100 /min 10-07-2018 no name [facility] 11:08-0400 ([id number]) Heart rate 53 /min (no code) 60 - 100 /min 10-07-2018 no name [facility] 09:46-0400 ([id number]) Heart rate 47 /min (LL) 60 - 100 /min 10-05-2018 no name [facility] 10:20-0400 ([id number]) Heart rate 53 /min (no code) 60 - 100 /min 10-04-2018 no name [facility] 10:05-0400 ([id number]) Heart rate 48 /min (LL) 60 - 100 /min 10-03-2018 no name [facility] 09:57-0400 ([id number]) Heart rate 57 /min (no code) 60 - 100 /min 10-02-2018 no name [facility] 10:51-0400 ([id number]) Heart rate 47 /min (LL) 60 - 100 /min 10-01-2018 no name [facility] 10:11-0400 ([id number]) Heart rate 99 /min (no code) 60 - 100 /min 09-30-2018 no name [facility] 11:17-0400 ([id number]) Heart rate 49 /min (LL) 60 - 100 /min 09-30-2018 no name [facility] 09:51-0400 ([id number]) Heart rate 54 /min (no code) 60 - 100 /min 09-29-2018 no name [facility] 11:03-0400 ([id number]) Heart rate 52 /min (no code) 60 - 100 /min 09-28-2018 no name [facility] 09:13-0400 ([id number]) Heart rate 54 /min (no code) 60 - 100 /min 09-27-2018 no name [facility] 10:37-0400 ([id number]) Heart rate 50 /min (no code) 60 - 100 /min 09-26-2018 no name [facility] 09:04-0400 ([id number]) Heart rate 45 /min (LL) 60 - 100 /min 09-25-2018 no name [facility] 10:05-0400 ([id number]) Heart rate 55 /min (no code) 60 - 100 /min 09-24-2018 no name [facility] 10:21-0400 ([id number]) Heart rate 55 /min (no code) 60 - 100 /min 09-23-2018 no name [facility] 10:23-0400 ([id number]) Heart rate 50 /min (LL) 60 - 100 /min 09-22-2018 no name [facility] 12:08-0400 ([id number]) Heart rate 64 /min (no code) 60 - 100 /min 09-21-2018 no name [facility] 10:02-0400 ([id number]) Heart rate 50 /min (LL) 60 - 100 /min 09-20-2018 no name [facility] 11:32-0400 ([id number]) Heart rate 59 /min (no code) 60 - 100 /min 09-20-2018 no name [facility] 11:31-0400 ([id number]) Heart rate 52 /min (no code) 60 - 100 /min 09-18-2018 no name [facility] 11:16-0400 ([id number]) Heart rate 52 /min (no code) 60 - 100 /min 09-18-2018 no name [facility] 09:56-0400 ([id number]) Heart rate 87 /min (no code) 60 - 100 /min 09-17-2018 no name [facility] 10:49-0400 ([id number]) Heart rate 55 /min (no code) 60 - 100 /min 09-16-2018 no name [facility] 10:02-0400 ([id number]) Heart rate 46 /min (LL) 60 - 100 /min 09-15-2018 no name [facility] 12:44-0400 ([id number]) Heart rate 46 /min (LL) 60 - 100 /min 09-15-2018 no name [facility] 09:58-0400 ([id number]) Heart rate 50 /min (LL) 60 - 100 /min 09-14-2018 no name [facility] 10:29-0400 ([id number]) Heart rate 54 /min (no code) 60 - 100 /min 09-13-2018 no name [facility] 13:46-0400 ([id number]) Heart rate 54 /min (no code) 60 - 100 /min 09-13-2018 no name [facility] 09:56-0400 ([id number]) Heart rate 50 /min (LL) 60 - 100 /min 09-12-2018 no name [facility] 09:19-0400 ([id number]) Heart rate 54 /min (no code) 60 - 100 /min 09-11-2018 no name [facility] 10:16-0400 ([id number]) Heart rate 50 /min (LL) 60 - 100 /min 09-10-2018 no name [facility] 10:01-0400 ([id number]) Heart rate 48 /min (LL) 60 - 100 /min 09-09-2018 no name [facility] 10:26-0400 ([id number]) Heart rate 55 /min (no code) 60 - 100 /min 09-08-2018 no name [facility] 10:100400 ([id number]) Heart rate 52 /min (no code) 60 - 100 /min 09-07-2018 no name [facility] 10:17-0400 ([id number]) Heart rate 55 /min (no code) 60 - 100 /min 2018 no name [facility] 11:07-0400 ([id number]) Heart rate 49 /min (LL) 60 - 100 /min 09-04-2018 no name [facility] 10:24-0400 ([id number]) Heart rate 55 /min (no code) 60 - 100 /min 09-03-2018 no name [facility] 12:57-0400 ([id number]) Heart rate 57 /min (no code) 60 - 100 /min 09-02-2018 no name [facility] 11:03-0400 ([id number]) Heart rate 54 /min (no code) 60 - 100 /min 09-01-2018 no name [facility] 10:27-0400 ([id number]) Heart rate 46 /min (LL) 60 - 100 /min 08-30-2018 no name [facility] 10:24-0400 ([id number]) Heart rate 49 /min (LL) 60 - 100 /min 08-28-2018 no name [facility] 11:16-0400 ([id number]) Heart rate 54 /min (no code) 60 - 100 /min 08-27-2018 no name [facility] 11:23-0400 ([id number]) Heart rate 48 /min (LL) 60 - 100 /min 08-26-2018 no name [facility] 11:10-0400 ([id number]) Heart rate 51 /min (no code) 60 - 100 /min 08-25-2018 no name [facility] 16:44-0400 ([id number]) Heart rate 51 /min (no code) 60 - 100 /min 08-24-2018 no name [facility] 10:16-0400 ([id number]) Heart rate 52 /min (no code) 60 - 100 /min 08-23-2018 no name [facility] 16:25-0400 ([id number]) Heart rate 57 /min (no code) 60 - 100 /min 08-23-2018 no name [facility] 14:41-0400 ([id number]) Heart rate 67 /min (no code) 60 - 100 /min 08-23-2018 no name [facility] 10:28-0400 ([id number]) Heart rate 47 /min (LL) 60 - 100 /min 08-22-2018 no name [facility] 09:57-0400 ([id number]) Heart rate 46 /min (LL) 60 - 100 /min 08-21-2018 no name [facility] 11:03-0400 ([id number]) Heart rate 45 /min (LL) 60 - 100 /min 08-13-2018 no name [facility] 11:31-0400 ([id number]) Heart rate 57 /min (no code) 60 - 100 /min 08-12-2018 no name [facility] 10:22-0400 ([id number]) Heart rate 56 /min (no code) 60 - 100 /min 08-11-2018 no name [facility] 11:02-0400 ([id number]) Heart rate 55 /min (no code) 60 - 100 /min 08-11-2018 no name [facility] 11:00-0400 ([id number]) Heart rate 50 /min (LL) 60 - 100 /min 08-10-2018 no name [facility] 10:17-0400 ([id number]) Heart rate 63 /min (no code) 60 - 100 /min 08-09-2018 no name [facility] 10:16-0400 ([id number]) Heart rate 53 /min (no code) 60 - 100 /min 08-08-2018 no name [facility] 09:40-0400 ([id number]) Heart rate 53 /min (no code) 60 - 100 /min 08-07-2018 no name [facility] 09:48-0400 ([id number]) Heart rate 49 /min (LL) 60 - 100 /min 08-06-2018 no name [facility] 10:34-0400 ([id number]) Heart rate 52 /min (no code) 60 - 100 /min 08-05-2018 no name [facility] 11:03-0400 ([id number]) Heart rate 58 /min (no code) 60 - 100 /min 08-04-2018 no name [facility] 10:23-0400 ([id number]) Heart rate 49 /min (LL) 60 - 100 /min 08-03-2018 no name [facility] 10:11-0400 ([id number]) Heart rate 51 /min (no code) 60 - 100 /min 08-02-2018 no name [facility] 11:10-0400 ([id number]) Heart rate 51 /min (no code) 60 - 100 /min 08-02-2018 no name [facility] 09:26-0400 ([id number]) Heart rate 54 /min (no code) 60 - 100 /min 08-01-2018 no name [facility] 09:32-0400 ([id number]) Heart rate 53 /min (no code) 60 - 100 /min 07-31-2018 no name [facility] 15:14-0400 ([id number]) Heart rate 53 /min (no code) 60 - 100 /min 07-31-2018 no name [facility] 10:04-0400 ([id number]) Heart rate 52 /min (no code) 60 - 100 /min 07-30-2018 no name [facility] 10:57-0400 ([id number]) Heart rate 58 /min (no code) 60 - 100 /min 07-30-2018 no name [facility] 10:53-0400 ([id number]) Heart rate 80 /min (no code) 60 - 100 /min 07-29-2018 no name [facility] 14:09-0400 ([id number]) Heart rate 80 /min (no code) 60 - 100 /min 07-29-2018 no name [facility] 09:29-0400 ([id number]) Heart rate 50 /min (LL) 60 - 100 /min 07-28-2018 no name [facility] 10:09-0400 ([id number]) Heart rate 56 /min (no code) 60 - 100 /min 07-27-2018 no name [facility] 10:35-0400 ([id number]) Heart rate 70 /min (no code) 60 - 100 /min 07-26-2018 no name [facility] 10:35-0400 ([id number]) Heart rate 54 /min (no code) 60 - 100 /min 07-24-2018 no name [facility] 13:47-0400 ([id number]) Heart rate 53 /min (no code) 60 - 100 /min 07-24-2018 no name [facility] 10:57-0400 ([id number]) Heart rate 57 /min (no code) 60 - 100 /min 07-24-2018 no name [facility] 10:53-0400 ([id number]) Heart rate 56 /min (no code) 60 - 100 /min 07-23-2018 no name [facility] 10:51-0400 ([id number]) Heart rate 54 /min (no code) 60 - 100 /min 07-22-2018 no name [facility] 11:04-0400 ([id number]) Heart rate 55 /min (no code) 60 - 100 /min 07-21-2018 no name [facility] 11:34-0400 ([id number]) Heart rate 62 /min (no code) 60 - 100 /min 07-20-2018 no name [facility] 14:03-0400 ([id number]) Heart rate 62 /min (no code) 60 - 100 /min 07-20-2018 no name [facility] 09:55-0400 ([id number]) Heart rate 57 /min (no code) 60 - 100 /min 07-19-2018 no name [facility] 14:21-0400 ([id number]) Heart rate 57 /min (no code) 60 - 100 /min 07-19-2018 no name [facility] 09:49-0400 ([id number]) Heart rate 58 /min (no code) 60 - 100 /min 07-18-2018 no name [facility] 09:10-0400 ([id number]) Heart rate 59 /min (no code) 60 - 100 /min 07-17-2018 no name [facility] 10:36-0400 ([id number]) Heart rate 48 /min (LL) 60 - 100 /min 07-16-2018 no name [facility] 10:19-0400 ([id number]) Heart rate 57 /min (no code) 60 - 100 /min 07-15-2018 no name [facility] 10:25-0400 ([id number]) Heart rate 56 /min (no code) 60 - 100 /min 07-14-2018 no name [facility] 16:42-0400 ([id number]) Heart rate 56 /min (no code) 60 - 100 /min 07-13-2018 no name [facility] 11:40-0400 ([id number]) Heart rate 62 /min (no code) 60 - 100 /min 07-12-2018 no name [facility] 13:40-0400 ([id number]) Heart rate 54 /min (no code) 60 - 100 /min 07-10-2018 no name [facility] 10:43-0400 ([id number]) Heart rate 51 /min (no code) 60 - 100 /min 07-09-2018 no name [facility] 11:41-0400 ([id number]) Heart rate 58 /min (no code) 60 - 100 /min 07-08-2018 no name [facility] 11:42-0400 ([id number]) Heart rate 50 /min (LL) 60 - 100 /min 07-07-2018 no name [facility] 17:02-0400 ([id number]) Heart rate 52 /min (no code) 60 - 100 /min 07-04-2018 no name [facility] 16:130400 ([id number]) Heart rate 52 /min (no code) 60 - 100 /min 07-03-2018 no name [facility] 10:090400 ([id number]) Heart rate 49 /min (LL) 60 - 100 /min 07-02-2018 no name [facility] 11:20-0400 ([id number]) Heart rate 52 /min (no code) 60 - 100 /min 07-01-2018 no name [facility] 10:13-0400 ([id number]) Heart rate 54 /min (no code) 60 - 100 /min 06-30-2018 no name [facility] 10:36-0400 ([id number]) Heart rate 52 /min (no code) 60 - 100 /min 06-29-2018 no name [facility] 11:110400 ([id number]) Heart rate 48 /min (LL) 60 - 100 /min 06-28-2018 no name [facility] 10:37-0400 ([id number]) Heart rate 55 /min (no code) 60 - 100 /min 06-27-2018 no name [facility] 10:060400 ([id number]) Heart rate 60 /min (no code) 60 - 100 /min 06-26-2018 no name [facility] 10:27-0400 ([id number]) Heart rate 55 /min (no code) 60 - 100 /min 06-25-2018 no name [facility] 10:21-0400 ([id number]) Heart rate 47 /min (LL) 60 - 100 /min 06-24-2018 no name [facility] 11:020400 ([id number]) Heart rate 47 /min (LL) 60 - 100 /min 06-23-2018 no name [facility] 10:42-0400 ([id number]) Heart rate 57 /min (no code) 60 - 100 /min 06-22-2018 no name [facility] 15:35-0400 ([id number]) Heart rate 50 /min (LL) 60 - 100 /min 06-22-2018 no name [facility] 13:35-0400 ([id number]) Heart rate 50 /min (LL) 60 - 100 /min 06-22-2018 no name [facility] 10:34-0400 ([id number]) Heart rate 47 /min (LL) 60 - 100 /min 06-21-2018 no name [facility] 12:47-0400 ([id number]) Heart rate 50 /min (LL) 60 - 100 /min 06-20-2018 no name [facility] 09:29-0400 ([id number]) Heart rate 51 /min (no code) 60 - 100 /min 06-19-2018 no name [facility] 10:43-0400 ([id number]) Heart rate 50 /min (LL) 60 - 100 /min 06-18-2018 no name [facility] 11:21-0400 ([id number]) Heart rate 48 /min (LL) 60 - 100 /min 06-17-2018 no name [facility] 09:45-0400 ([id number]) Heart rate 45 /min (LL) 60 - 100 /min 06-16-2018 no name [facility] 10:12-0400 ([id number]) Heart rate 49 /min (LL) 60 - 100 /min 06-15-2018 no name [facility] 14:43-0400 ([id number]) Heart rate 49 /min (LL) 60 - 100 /min 06-15-2018 no name [facility] 09:40-0400 ([id number]) Heart rate 49 /min (LL) 60 - 100 /min 06-14-2018 no name [facility] 10:40-0400 ([id number]) Heart rate 46 /min (LL) 60 - 100 /min 06-13-2018 no name [facility] 09:54-0400 ([id number]) Heart rate 51 /min (no code) 60 - 100 /min 06-12-2018 no name [facility] 10:13-0400 ([id number]) Heart rate 52 /min (no code) 60 - 100 /min 06-11-2018 no name [facility] 11:20-0400 ([id number]) Heart rate 55 /min (no code) 60 - 100 /min 06-10-2018 no name [facility] 10:17-0400 ([id number]) Heart rate 42 /min (LL) 60 - 100 /min 06-09-2018 no name [facility] 12:41-0400 ([id number]) Heart rate 49 /min (LL) 60 - 100 /min 06-09-2018 no name [facility] 12:40-0400 ([id number]) Heart rate 47 /min (LL) 60 - 100 /min 06-08-2018 no name [facility] 16:50-0400 ([id number]) Heart rate 46 /min (LL) 60 - 100 /min 06-07-2018 no name [facility] 13:38-0400 ([id number]) Heart rate 48 /min (LL) 60 - 100 /min 06-05-2018 no name [facility] 11:32-0400 ([id number]) Heart rate 54 /min (no code) 60 - 100 /min 06-04-2018 no name [facility] 12:06-0400 ([id number]) Heart rate 49 /min (LL) 60 - 100 /min 06-04-2018 no name [facility] 12:04-0400 ([id number]) Heart rate 52 /min (no code) 60 - 100 /min 06-03-2018 no name [facility] 11:43-0400 ([id number]) Heart rate 52 /min (no code) 60 - 100 /min 06-03-2018 no name [facility] 10:29-0400 ([id number]) Heart rate 46 /min (LL) 60 - 100 /min 06-02-2018 no name [facility] 10:51-0400 ([id number]) Heart rate 59 /min (no code) 60 - 100 /min 06-01-2018 no name [facility] 15:08-0400 ([id number]) Heart rate 59 /min (no code) 60 - 100 /min 05-31-2018 no name [facility] 14:32-0400 ([id number]) Heart rate 59 /min (no code) 60 - 100 /min 05-30-2018 no name [facility] 10:03-0400 ([id number]) Heart rate 54 /min (no code) 60 - 100 /min 05-29-2018 no name [facility] 11:46-0500 ([id number]) Heart rate 49 /min (LL) 60 - 100 /min 05-28-2018 no name [facility] 10:53-0500 ([id number]) Heart rate 52 /min (no code) 60 - 100 /min 05-27-2018 no name [facility] 09:23-0500 ([id number]) Heart rate 57 /min (no code) 60 - 100 /min 05-26-2018 no name [facility] 10:35-0500 ([id number]) Heart rate 98 /min (no code) 60 - 100 /min 05-26-2018 no name [facility] 10:33-0500 ([id number]) Heart rate 56 /min (no code) 60 - 100 /min 05-26-2018 no name [facility] 09:13-0500 ([id number]) Heart rate 47 /min (LL) 60 - 100 /min 05-24-2018 no name [facility] 10:20-0500 ([id number]) Heart rate 48 /min (LL) 60 - 100 /min 05-22-2018 no name [facility] 10:26-0500 ([id number]) Heart rate 47 /min (LL) 60 - 100 /min 05-22-2018 no name [facility] 10:23-0500 ([id number]) Heart rate 55 /min (no code) 60 - 100 /min 05-21-2018 no name [facility] 16:40-0500 ([id number]) Heart rate 45 /min (LL) 60 - 100 /min 05-19-2018 no name [facility] 10:33-0500 ([id number]) Heart rate 52 /min (no code) 60 - 100 /min 05-19-2018 no name [facility] 10:32-0500 ([id number]) Heart rate 48 /min (LL) 60 - 100 /min 05-18-2018 no name [facility] 10:47-0500 ([id number]) Heart rate 42 /min (LL) 60 - 100 /min 05-17-2018 no name [facility] 11:50-0500 ([id number]) Heart rate 56 /min (no code) 60 - 100 /min 05-15-2018 no name [facility] 16:35-0500 ([id number]) Heart rate 49 /min (LL) 60 - 100 /min 05-14-2018 no name [facility] 10:36-0500 ([id number]) Heart rate 48 /min (LL) 60 - 100 /min 05-12-2018 no name [facility] 10:16-0500 ([id number]) Heart rate 47 /min (LL) 60 - 100 /min 05-11-2018 no name [facility] 14:04-0500 ([id number]) Heart rate 47 /min (LL) 60 - 100 /min 05-10-2018 no name [facility] 14:02-0500 ([id number]) Heart rate 45 /min (LL) 60 - 100 /min 05-09-2018 no name [facility] 09:48-0500 ([id number]) Heart rate 52 /min (no code) 60 - 100 /min 05-08-2018 no name [facility] 10:31-0500 ([id number]) Heart rate 55 /min (no code) 60 - 100 /min 05-07-2018 no name [facility] 11:41-0500 ([id number]) Heart rate 47 /min (LL) 60 - 100 /min 05-06-2018 no name [facility] 10:40-0500 ([id number]) Heart rate 45 /min (LL) 60 - 100 /min 05-05-2018 no name [facility] 10:44-0500 ([id number]) Heart rate 52 /min (no code) 60 - 100 /min 05-04-2018 no name [facility] 14:01-0500 ([id number]) Heart rate 51 /min (no code) 60 - 100 /min 05-03-2018 no name [facility] 13:53-0500 ([id number]) Heart rate 51 /min (no code) 60 - 100 /min 05-03-2018 no name [facility] 10:51-0500 ([id number]) Heart rate 57 /min (no code) 60 - 100 /min 05-03-2018 no name [facility] 10:49-0500 ([id number]) Heart rate 54 /min (no code) 60 - 100 /min 05-02-2018 no name [facility] 09:21-0500 ([id number]) Heart rate 50 /min (LL) 60 - 100 /min 05-01-2018 no name [facility] 12:20-0500 ([id number]) Heart rate 50 /min (LL) 60 - 100 /min 05-01-2018 no name [facility] 09:57-0500 ([id number]) Heart rate 53 /min (no code) 60 - 100 /min 04-29-2018 no name [facility] 11:09-0500 ([id number]) Heart rate 52 /min (no code) 60 - 100 /min 04-28-2018 no name [facility] 14:03-0500 ([id number]) Heart rate 52 /min (no code) 60 - 100 /min 04-28-2018 no name [facility] 10:46-0500 ([id number]) Heart rate 49 /min (LL) 60 - 100 /min 04-27-2018 no name [facility] 13:55-0500 ([id number]) Heart rate 46 /min (LL) 60 - 100 /min 04-27-2018 no name [facility] 09:30-0500 ([id number]) Heart rate 47 /min (LL) 60 - 100 /min 04-26-2018 no name [facility] 12:58-0500 ([id number]) Heart rate 47 /min (LL) 60 - 100 /min 04-26-2018 no name [facility] 10:00-0500 ([id number]) Heart rate 47 /min (LL) 60 - 100 /min 04-24-2018 no name [facility] 10:21-0500 ([id number]) Heart rate 49 /min (LL) 60 - 100 /min 04-23-2018 no name [facility] 10:39-0500 ([id number]) Heart rate 48 /min (LL) 60 - 100 /min 04-22-2018 no name [facility] 12:19-0500 ([id number]) Heart rate 55 /min (no code) 60 - 100 /min 04-21-2018 no name [facility] 13:09-0500 ([id number]) Heart rate 55 /min (no code) 60 - 100 /min 04-20-2018 no name [facility] 11:16-0500 ([id number]) Heart rate 45 /min (LL) 60 - 100 /min 04-19-2018 no name [facility] 10:25-0500 ([id number]) Heart rate 47 /min (LL) 60 - 100 /min 04-18-2018 no name [facility] 09:55-0500 ([id number]) Heart rate 52 /min (no code) 60 - 100 /min 04-17-2018 no name [facility] 10:18-0500 ([id number]) Heart rate 50 /min (LL) 60 - 100 /min 04-16-2018 no name [facility] 09:27-0500 ([id number]) Heart rate 53 /min (no code) 60 - 100 /min 04-15-2018 no name [facility] 12:31-0500 ([id number]) Heart rate 49 /min (LL) 60 - 100 /min 04-15-2018 no name [facility] 09:57-0500 ([id number]) Heart rate 49 /min (LL) 60 - 100 /min 04-14-2018 no name [facility] 10:41-0500 ([id number]) Heart rate 51 /min (no code) 60 - 100 /min 04-13-2018 no name [facility] 10:30-0500 ([id number]) Heart rate 46 /min (LL) 60 - 100 /min 04-12-2018 no name [facility] 17:53-0500 ([id number]) Heart rate 47 /min (LL) 60 - 100 /min 04-10-2018 no name [facility] 10:17-0500 ([id number]) Heart rate 57 /min (no code) 60 - 100 /min 04-09-2018 no name [facility] 15:10-0500 ([id number]) Heart rate 57 /min (no code) 60 - 100 /min 04-08-2018 no name [facility] 10:08-0500 ([id number]) Heart rate 58 /min (no code) 60 - 100 /min 04-08-2018 no name [facility] 10:05-0500 ([id number]) Heart rate 99 /min (no code) 60 - 100 /min 04-07-2018 no name [facility] 10:49-0500 ([id number]) Heart rate 47 /min (LL) 60 - 100 /min 04-05-2018 no name [facility] 10:22-0500 ([id number]) Heart rate 51 /min (no code) 60 - 100 /min 04-04-2018 no name [facility] 09:54-0500 ([id number]) Heart rate 52 /min (no code) 60 - 100 /min 04-03-2018 no name [facility] 11:20-0500 ([id number]) Heart rate 50 /min (LL) 60 - 100 /min 04-02-2018 no name [facility] 11:23-0500 ([id number]) Heart rate 46 /min (LL) 60 - 100 /min 03-31-2018 no name [facility] 09:23-0500 ([id number]) Heart rate 47 /min (LL) 60 - 100 /min 03-30-2018 no name [facility] 13:55-0500 ([id number]) Heart rate 55 /min (no code) 60 - 100 /min 03-29-2018 no name [facility] 14:39-0500 ([id number]) Heart rate 55 /min (no code) 60 - 100 /min 03-27-2018 no name [facility] 10:19-0500 ([id number]) Heart rate 58 /min (no code) 60 - 100 /min 03-26-2018 no name [facility] 10:17-0500 ([id number]) Heart rate 55 /min (no code) 60 - 100 /min 03-25-2018 no name [facility] 10:23-0500 ([id number]) Heart rate 58 /min (no code) 60 - 100 /min 03-24-2018 no name [facility] 17:17-0500 ([id number]) Heart rate 51 /min (no code) 60 - 100 /min 03-20-2018 no name [facility] 09:41-0500 ([id number]) Heart rate 52 /min (no code) 60 - 100 /min 03-19-2018 no name [facility] 09:44-0500 ([id number]) Heart rate 55 /min (no code) 60 - 100 /min 03-18-2018 no name [facility] 09:57-0500 ([id number]) Heart rate 55 /min (no code) 60 - 100 /min 03-17-2018 no name [facility] 09:41-0500 ([id number]) Heart rate 52 /min (no code) 60 - 100 /min 03-16-2018 no name [facility] 09:59-0500 ([id number]) Heart rate 50 /min (LL) 60 - 100 /min 03-15-2018 no name [facility] 10:02-0500 ([id number]) Heart rate 55 /min (no code) 60 - 100 /min 03-14-2018 no name [facility] 09:10-0500 ([id number]) Heart rate 53 /min (no code) 60 - 100 /min 03-13-2018 no name [facility] 09:42-0500 ([id number]) Heart rate 55 /min (no code) 60 - 100 /min 03-12-2018 no name [facility] 12:47-0500 ([id number]) Heart rate 61 /min (no code) 60 - 100 /min 03-12-2018 no name [facility] 12:45-0500 ([id number]) Heart rate 61 /min (no code) 60 - 100 /min 03-12-2018 no name [facility] 08:23-0500 ([id number]) Heart rate 55 /min (no code) 60 - 100 /min 03-11-2018 no name [facility] 09:20-0500 ([id number]) Heart rate 57 /min (no code) 60 - 100 /min 03-10-2018 no name [facility] 11:24-0500 ([id number]) Heart rate 57 /min (no code) 60 - 100 /min 03-10-2018 no name [facility] 09:32-0500 ([id number]) Heart rate 59 /min (no code) 60 - 100 /min 03-09-2018 no name [facility] 14:19-0500 ([id number]) Heart rate 59 /min (no code) 60 - 100 /min 03-09-2018 no name [facility] 08:54-0500 ([id number]) Heart rate 51 /min (no code) 60 - 100 /min 03-08-2018 no name [facility] 13:45-0500 ([id number]) Heart rate 51 /min (no code) 60 - 100 /min 03-08-2018 no name [facility] 09:00-0500 ([id number]) Heart rate 52 /min (no code) 60 - 100 /min 03-07-2018 no name [facility] 08:52-0500 ([id number]) Heart rate 55 /min (no code) 60 - 100 /min 03-06-2018 no name [facility] 13:01-0500 ([id number]) Heart rate 55 /min (no code) 60 - 100 /min 03-06-2018 no name [facility] 09:49-0500 ([id number]) Heart rate 58 /min (no code) 60 - 100 /min 03-05-2018 no name [facility] 13:02-0500 ([id number]) Heart rate 58 /min (no code) 60 - 100 /min 03-05-2018 no name [facility] 09:54-0500 ([id number]) Heart rate 58 /min (no code) 60 - 100 /min 03-04-2018 no name [facility] 08:31-0500 ([id number]) Heart rate 46 /min (LL) 60 - 100 /min 03-03-2018 no name [facility] 12:28-0500 ([id number]) Heart rate 46 /min (LL) 60 - 100 /min 03-03-2018 no name [facility] 08:54-0500 ([id number]) Heart rate 63 /min (no code) 60 - 100 /min 03-02-2018 no name [facility] 13:14-0500 ([id number]) Heart rate 63 /min (no code) 60 - 100 /min 03-02-2018 no name [facility] 08:46-0500 ([id number]) Heart rate 53 /min (no code) 60 - 100 /min 03-01-2018 no name [facility] 11:24-0500 ([id number]) Heart rate 53 /min (no code) 60 - 100 /min 03-01-2018 no name [facility] 09:48-0500 ([id number]) Heart rate 54 /min (no code) 60 - 100 /min 02-27-2018 no name [facility] 11:39-0500 ([id number]) Heart rate 54 /min (no code) 60 - 100 /min 02-27-2018 no name [facility] 09:13-0500 ([id number]) Heart rate 50 /min (LL) 60 - 100 /min 02-26-2018 no name [facility] 10:22-0500 ([id number]) Heart rate 57 /min (no code) 60 - 100 /min 02-25-2018 no name [facility] 12:50-0500 ([id number]) Heart rate 57 /min (no code) 60 - 100 /min 02-25-2018 no name [facility] 09:49-0500 ([id number]) Heart rate 51 /min (no code) 60 - 100 /min 02-24-2018 no name [facility] 09:06-0500 ([id number]) Heart rate 47 /min (LL) 60 - 100 /min 02-23-2018 no name [facility] 10:04-0500 ([id number]) Heart rate 55 /min (no code) 60 - 100 /min 02-22-2018 no name [facility] 09:37-0500 ([id number]) Heart rate 52 /min (no code) 60 - 100 /min 02-22-2018 no name [facility] 09:35-0500 ([id number]) Heart rate 49 /min (LL) 60 - 100 /min 02-21-2018 no name [facility] 10:24-0500 ([id number]) Heart rate 49 /min (LL) 60 - 100 /min 02-20-2018 no name [facility] 09:37-0500 ([id number]) Heart rate 53 /min (no code) 60 - 100 /min 02-19-2018 no name [facility] 09:49-0500 ([id number]) Heart rate 49 /min (LL) 60 - 100 /min 02-18-2018 no name [facility] 09:32-0500 ([id number]) Heart rate 55 /min (no code) 60 - 100 /min 02-17-2018 no name [facility] 14:47-0500 ([id number]) Heart rate 55 /min (no code) 60 - 100 /min 02-17-2018 no name [facility] 08:34-0500 ([id number]) Heart rate 52 /min (no code) 60 - 100 /min 02-16-2018 no name [facility] 14:52-0500 ([id number]) Heart rate 52 /min (no code) 60 - 100 /min 02-16-2018 no name [facility] 09:48-0500 ([id number]) Heart rate 47 /min (LL) 60 - 100 /min 02-15-2018 no name [facility] 14:17-0500 ([id number]) Heart rate 49 /min (LL) 60 - 100 /min 02-15-2018 no name [facility] 09:36-0500 ([id number]) Heart rate 50 /min (LL) 60 - 100 /min 02-14-2018 no name [facility] 08:53-0500 ([id number]) Heart rate 67 /min (no code) 60 - 100 /min 02-12-2018 no name [facility] 14:09-0500 ([id number]) Heart rate 67 /min (no code) 60 - 100 /min 02-12-2018 no name [facility] 09:34-0500 ([id number]) Heart rate 66 /min (no code) 60 - 100 /min 02-11-2018 no name [facility] 20:30-0500 ([id number]) Heart rate 52 /min (no code) 60 - 100 /min 02-11-2018 no name [facility] 10:09-0500 ([id number]) Heart rate 51 /min (no code) 60 - 100 /min 02-10-2018 no name [facility] 14:35-0500 ([id number]) Heart rate 51 /min (no code) 60 - 100 /min 02-10-2018 no name [facility] 09:32-0500 ([id number]) Heart rate 57 /min (no code) 60 - 100 /min 02-09-2018 no name [facility] 14:42-0500 ([id number]) Heart rate 57 /min (no code) 60 - 100 /min 02-09-2018 no name [facility] 09:52-0500 ([id number]) Heart rate 60 /min (no code) 60 - 100 /min 02-08-2018 no name [facility] 14:04-0500 ([id number]) Heart rate 60 /min (no code) 60 - 100 /min 02-08-2018 no name [facility] 08:10-0500 ([id number]) Heart rate 56 /min (no code) 60 - 100 /min 02-07-2018 no name [facility] 08:34-0500 ([id number]) Heart rate 59 /min (no code) 60 - 100 /min 02-06-2018 no name [facility] 09:16-0500 ([id number]) Heart rate 54 /min (no code) 60 - 100 /min 02-05-2018 no name [facility] 10:04-0500 ([id number]) Heart rate 54 /min (no code) 60 - 100 /min 02-04-2018 no name [facility] 09:28-0500 ([id number]) Heart rate 58 /min (no code) 60 - 100 /min 02-03-2018 no name [facility] 14:15-0500 ([id number]) Heart rate 58 /min (no code) 60 - 100 /min 02-03-2018 no name [facility] 09:47-0500 ([id number]) Heart rate 47 /min (LL) 60 - 100 /min 02-02-2018 no name [facility] 14:19-0500 ([id number]) Heart rate 46 /min (LL) 60 - 100 /min 02-02-2018 no name [facility] 14:14-0500 ([id number]) Heart rate 46 /min (LL) 60 - 100 /min 02-02-2018 no name [facility] 09:44-0500 ([id number]) Heart rate 52 /min (no code) 60 - 100 /min 02-01-2018 no name [facility] 12:10-0500 ([id number]) Heart rate 54 /min (no code) 60 - 100 /min 02-01-2018 no name [facility] 12:06-0500 ([id number]) Heart rate 54 /min (no code) 60 - 100 /min 02-01-2018 no name [facility] 09:43-0500 ([id number]) Heart rate 57 /min (no code) 60 - 100 /min 01-31-2018 no name [facility] 08:21-0500 ([id number]) Heart rate 48 /min (LL) 60 - 100 /min 01-30-2018 no name [facility] 10:45-0500 ([id number]) Heart rate 49 /min (LL) 60 - 100 /min 01-30-2018 no name [facility] 10:42-0500 ([id number]) Heart rate 46 /min (LL) 60 - 100 /min 01-29-2018 no name [facility] 10:22-0500 ([id number]) Heart rate 47 /min (LL) 60 - 100 /min 01-28-2018 no name [facility] 08:39-0500 ([id number]) Heart rate 64 /min (no code) 60 - 100 /min 01-27-2018 no name [facility] 10:15-0500 ([id number]) Heart rate 47 /min (LL) 60 - 100 /min 01-26-2018 no name [facility] 14:14-0500 ([id number]) Heart rate 47 /min (LL) 60 - 100 /min 01-26-2018 no name [facility] 09:58-0500 ([id number]) Heart rate 49 /min (LL) 60 - 100 /min 01-25-2018 no name [facility] 13:01-0500 ([id number]) Heart rate 49 /min (LL) 60 - 100 /min 01-25-2018 no name [facility] 08:58-0500 ([id number]) Heart rate 55 /min (no code) 60 - 100 /min 01-24-2018 no name [facility] 08:28-0500 ([id number]) Heart rate 50 /min (LL) 60 - 100 /min 01-23-2018 no name [facility] 10:33-0400 ([id number]) Heart rate 50 /min (LL) 60 - 100 /min 01-22-2018 no name [facility] 10:08-0400 ([id number]) Heart rate 57 /min (no code) 60 - 100 /min 01-21-2018 no name [facility] 11:10-0400 ([id number]) Heart rate 52 /min (no code) 60 - 100 /min 01-20-2018 no name [facility] 09:36-0400 ([id number]) Heart rate 46 /min (LL) 60 - 100 /min 01-19-2018 no name [facility] 14:27-0400 ([id number]) Heart rate 48 /min (LL) 60 - 100 /min 01-14-2018 no name [facility] 09:05-0400 ([id number]) Heart rate 49 /min (LL) 60 - 100 /min 01-13-2018 no name [facility] 15:48-0400 ([id number]) Heart rate 52 /min (no code) 60 - 100 /min 01-12-2018 no name [facility] 14:07-0400 ([id number]) Heart rate 52 /min (no code) 60 - 100 /min 01-12-2018 no name [facility] 09:02-0400 ([id number]) Heart rate 50 /min (LL) 60 - 100 /min 01-11-2018 no name [facility] 10:22-0400 ([id number]) Heart rate 53 /min (no code) 60 - 100 /min 01-10-2018 no name [facility] 10:46-0400 ([id number]) Heart rate 54 /min (no code) 60 - 100 /min 01-10-2018 no name [facility] 09:14-0400 ([id number]) Heart rate 48 /min (LL) 60 - 100 /min 01-09-2018 no name [facility] 09:41-0400 ([id number]) Heart rate 46 /min (LL) 60 - 100 /min 01-08-2018 no name [facility] 17:04-0400 ([id number]) Heart rate 46 /min (LL) 60 - 100 /min 01-08-2018 no name [facility] 09:28-0400 ([id number]) Heart rate 52 /min (no code) 60 - 100 /min 01-06-2018 no name [facility] 13:30-0400 ([id number]) Heart rate 52 /min (no code) 60 - 100 /min 01-06-2018 no name [facility] 08:59-0400 ([id number]) Heart rate 49 /min (LL) 60 - 100 /min 01-06-2018 no name [facility] 08:55-0400 ([id number]) Heart rate 51 /min (no code) 60 - 100 /min 01-05-2018 no name [facility] 09:55-0400 ([id number]) Heart rate 58 /min (no code) 60 - 100 /min 01-04-2018 no name [facility] 10:15-0400 ([id number]) Heart rate 52 /min (no code) 60 - 100 /min 12-29-2017 no name [facility] 12:08-0400 ([id number]) Oxygen 98 % (no code) 95 - 100 % 2019 no name [facility] saturation in 06:03-0400 ([id number]) Arterial blood by Pulse oximetry Oxygen 97 % (no code) 95 - 100 % 09-05-2019 no name [facility] saturation in 12:17-0400 ([id number]) Arterial blood by Pulse oximetry Oxygen 100 % (no code) 95 - 100 % 08-30-2019 no name [facility] saturation in 07:29-0400 ([id number]) Arterial blood by Pulse oximetry Oxygen 98 % (no code) 95 - 100 % 08-29-2019 no name [facility] saturation in 05:50-0400 ([id number]) Arterial blood by Pulse oximetry Oxygen 98 % (no code) 95 - 100 % 08-29-2019 no name [facility] saturation in 04:34-0400 ([id number]) Arterial blood by Pulse oximetry Oxygen 96 % (no code) 95 - 100 % 08-26-2019 no name [facility] saturation in 05:25-0400 ([id number]) Arterial blood by Pulse oximetry Oxygen 99 % (no code) 95 - 100 % 08-25-2019 no name [facility] saturation in 09:59-0400 ([id number]) Arterial blood by Pulse oximetry Oxygen 74 % (LL) 95 - 100 % 08-24-2019 no name [facility] saturation in 05:12-0400 ([id number]) Arterial blood by Pulse oximetry Oxygen 99 % (no code) 95 - 100 % 08-23-2019 no name [facility] saturation in 07:50-0400 ([id number]) Arterial blood by Pulse oximetry Oxygen 98 % (no code) 95 - 100 % 08-22-2019 no name [facility] saturation in 07:41-0400 ([id number]) Arterial blood by Pulse oximetry Oxygen 98 % (no code) 95 - 100 % 08-19-2019 no name [facility] saturation in 06:12-0400 ([id number]) Arterial blood by Pulse oximetry Oxygen 99 % (no code) 95 - 100 % 08-17-2019 no name [facility] saturation in 07:17-0400 ([id number]) Arterial blood by Pulse oximetry Oxygen 98 % (no code) 95 - 100 % 08-16-2019 no name [facility] saturation in 10:14-0400 ([id number]) Arterial blood by Pulse oximetry Oxygen 98 % (no code) 95 - 100 % 08-12-2019 no name [facility] saturation in 06:04-0400 ([id number]) Arterial blood by Pulse oximetry Oxygen 96 % (no code) 95 - 100 % 08-10-2019 no name [facility] saturation in 06:30-0400 ([id number]) Arterial blood by Pulse oximetry Oxygen 99 % (no code) 95 - 100 % 08-09-2019 no name [facility] saturation in 09:50-0400 ([id number]) Arterial blood by Pulse oximetry Oxygen 98 % (no code) 95 - 100 % 08-08-2019 no name [facility] saturation in 08:29-0400 ([id number]) Arterial blood by Pulse oximetry Oxygen 93 % (no code) 95 - 100 % 08-05-2019 no name [facility] saturation in 06:03-0400 ([id number]) Arterial blood by Pulse oximetry Oxygen 97 % (no code) 95 - 100 % 08-03-2019 no name [facility] saturation in 05:34-0400 ([id number]) Arterial blood by Pulse oximetry Oxygen 92 % (no code) 95 - 100 % 08-02-2019 no name [facility] saturation in 07:16-0400 ([id number]) Arterial blood by Pulse oximetry Oxygen 97 % (no code) 95 - 100 % 08-01-2019 no name [facility] saturation in 04:55-0400 ([id number]) Arterial blood by Pulse oximetry Oxygen 96 % (no code) 95 - 100 % 07-29-2019 no name [facility] saturation in 06:22-0400 ([id number]) Arterial blood by Pulse oximetry Oxygen 98 % (no code) 95 - 100 % 07-27-2019 no name [facility] saturation in 05:22-0400 ([id number]) Arterial blood by Pulse oximetry Oxygen 98 % (no code) 95 - 100 % 07-26-2019 no name [facility] saturation in 10:06-0400 ([id number]) Arterial blood by Pulse oximetry Oxygen 96 % (no code) 95 - 100 % 07-23-2019 no name [facility] saturation in 06:51-0400 ([id number]) Arterial blood by Pulse oximetry Oxygen 94 % (no code) 95 - 100 % 07-22-2019 no name [facility] saturation in 05:16-0400 ([id number]) Arterial blood by Pulse oximetry Oxygen 95 % (no code) 95 - 100 % 07-20-2019 no name [facility] saturation in 03:35-0400 ([id number]) Arterial blood by Pulse oximetry Oxygen 96 % (no code) 95 - 100 % 07-19-2019 no name [facility] saturation in 10:07-0400 ([id number]) Arterial blood by Pulse oximetry Oxygen 93 % (no code) 95 - 100 % 07-18-2019 no name [facility] saturation in 09:17-0400 ([id number]) Arterial blood by Pulse oximetry Oxygen 98 % (no code) 95 - 100 % 07-15-2019 no name [facility] saturation in 06:03-0400 ([id number]) Arterial blood by Pulse oximetry Oxygen 100 % (no code) 95 - 100 % 07-14-2019 no name [facility] saturation in 05:24-0400 ([id number]) Arterial blood by Pulse oximetry Oxygen 99 % (no code) 95 - 100 % 07-13-2019 no name [facility] saturation in 06:37-0400 ([id number]) Arterial blood by Pulse oximetry Oxygen 99 % (no code) 95 - 100 % 07-12-2019 no name [facility] saturation in 07:40-0400 ([id number]) Arterial blood by Pulse oximetry Oxygen 99 % (no code) 95 - 100 % 07-11-2019 no name [facility] saturation in 09:16-0400 ([id number]) Arterial blood by Pulse oximetry Oxygen 99 % (no code) 95 - 100 % 07-09-2019 no name [facility] saturation in 12:08-0400 ([id number]) Arterial blood by Pulse oximetry Oxygen 99 % (no code) 95 - 100 % 07-07-2019 no name [facility] saturation in 05:25-0400 ([id number]) Arterial blood by Pulse oximetry Oxygen 97 % (no code) 95 - 100 % 07-06-2019 no name [facility] saturation in 05:29-0400 ([id number]) Arterial blood by Pulse oximetry Oxygen 98 % (no code) 95 - 100 % 07-05-2019 no name [facility] saturation in 09:41-0400 ([id number]) Arterial blood by Pulse oximetry Oxygen 99 % (no code) 95 - 100 % 07-04-2019 no name [facility] saturation in 08:53-0400 ([id number]) Arterial blood by Pulse oximetry Oxygen 97 % (no code) 95 - 100 % 07-01-2019 no name [facility] saturation in 06:300400 ([id number]) Arterial blood by Pulse oximetry Oxygen 98 % (no code) 95 - 100 % 06-30-2019 no name [facility] saturation in 09:530400 ([id number]) Arterial blood by Pulse oximetry Oxygen 99 % (no code) 95 - 100 % 06-29-2019 no name [facility] saturation in 06:040400 ([id number]) Arterial blood by Pulse oximetry Oxygen 91 % (no code) 95 - 100 % 06-28-2019 no name [facility] saturation in 10:060400 ([id number]) Arterial blood by Pulse oximetry Oxygen 96 % (no code) 95 - 100 % 06-27-2019 no name [facility] saturation in 10:030400 ([id number]) Arterial blood by Pulse oximetry Oxygen 98 % (no code) 95 - 100 % 06-24-2019 no name [facility] saturation in 10:56-0400 ([id number]) Arterial blood by Pulse oximetry Oxygen 98 % (no code) 95 - 100 % 06-22-2019 no name [facility] saturation in 06:0400 ([id number]) Arterial blood by Pulse oximetry Oxygen 97 % (no code) 95 - 100 % 06-21-2019 no name [facility] saturation in 09:220400 ([id number]) Arterial blood by Pulse oximetry Oxygen 97 % (no code) 95 - 100 % 06-20-2019 no name [facility] saturation in 09:190400 ([id number]) Arterial blood by Pulse oximetry Oxygen 99 % (no code) 95 - 100 % 06-18-2019 no name [facility] saturation in 09:28-0400 ([id number]) Arterial blood by Pulse oximetry Oxygen 99 % (no code) 95 - 100 % 06-17-2019 no name [facility] saturation in 06:59-0400 ([id number]) Arterial blood by Pulse oximetry Oxygen 99 % (no code) 95 - 100 % 06-15-2019 no name [facility] saturation in 05:42-0400 ([id number]) Arterial blood by Pulse oximetry Oxygen 99 % (no code) 95 - 100 % 06-14-2019 no name [facility] saturation in 10:48-0400 ([id number]) Arterial blood by Pulse oximetry Oxygen 98 % (no code) 95 - 100 % 06-13-2019 no name [facility] saturation in 09:53-0400 ([id number]) Arterial blood by Pulse oximetry Oxygen 98 % (no code) 95 - 100 % 06-10-2019 no name [facility] saturation in 05:16-0400 ([id number]) Arterial blood by Pulse oximetry Oxygen 98 % (no code) 95 - 100 % 06-08-2019 no name [facility] saturation in 07:59-0400 ([id number]) Arterial blood by Pulse oximetry Oxygen 98 % (no code) 95 - 100 % 06-07-2019 no name [facility] saturation in 10:10-0400 ([id number]) Arterial blood by Pulse oximetry Oxygen 93 % (no code) 95 - 100 % 06-06-2019 no name [facility] saturation in 08:43-0400 ([id number]) Arterial blood by Pulse oximetry Oxygen 98 % (no code) 95 - 100 % 06-03-2019 no name [facility] saturation in 06:39-0400 ([id number]) Arterial blood by Pulse oximetry Oxygen 98 % (no code) 95 - 100 % 06-01-2019 no name [facility] saturation in 06:07-0400 ([id number]) Arterial blood by Pulse oximetry Oxygen 96 % (no code) 95 - 100 % 05-31-2019 no name [facility] saturation in 09:01-0400 ([id number]) Arterial blood by Pulse oximetry Oxygen 99 % (no code) 95 - 100 % 05-30-2019 no name [facility] saturation in 09:140400 ([id number]) Arterial blood by Pulse oximetry Oxygen 95 % (no code) 95 - 100 % 05-28-2019 no name [facility] saturation in 04:31-0500 ([id number]) Arterial blood by Pulse oximetry Oxygen 98 % (no code) 95 - 100 % 05-27-2019 no name [facility] saturation in 05:51-0500 ([id number]) Arterial blood by Pulse oximetry Oxygen 100 % (no code) 95 - 100 % 05-26-2019 no name [facility] saturation in 05:58-0500 ([id number]) Arterial blood by Pulse oximetry Oxygen 93 % (no code) 95 - 100 % 05-25-2019 no name [facility] saturation in 04:47-0500 ([id number]) Arterial blood by Pulse oximetry Oxygen 99 % (no code) 95 - 100 % 05-24-2019 no name [facility] saturation in 04:030500 ([id number]) Arterial blood by Pulse oximetry Oxygen 97 % (no code) 95 - 100 % 05-23-2019 no name [facility] saturation in 04:44-0500 ([id number]) Arterial blood by Pulse oximetry Oxygen 79 % (LL) 95 - 100 % 05-23-2019 no name [facility] saturation in 03:50-0500 ([id number]) Arterial blood by Pulse oximetry Oxygen 96 % (no code) 95 - 100 % 05-21-2019 no name [facility] saturation in 07:55-0500 ([id number]) Arterial blood by Pulse oximetry Oxygen 93 % (no code) 95 - 100 % 05-20-2019 no name [facility] saturation in 05:130500 ([id number]) Arterial blood by Pulse oximetry Oxygen 99 % (no code) 95 - 100 % 05-19-2019 no name [facility] saturation in 04:300500 ([id number]) Arterial blood by Pulse oximetry Oxygen 100 % (no code) 95 - 100 % 05-18-2019 no name [facility] saturation in 04:080500 ([id number]) Arterial blood by Pulse oximetry Oxygen 98 % (no code) 95 - 100 % 05-17-2019 no name [facility] saturation in 06:44-0500 ([id number]) Arterial blood by Pulse oximetry Oxygen 98 % (no code) 95 - 100 % 05-16-2019 no name [facility] saturation in 08:050500 ([id number]) Arterial blood by Pulse oximetry Oxygen 99 % (no code) 95 - 100 % 05-14-2019 no name [facility] saturation in 05:04-0500 ([id number]) Arterial blood by Pulse oximetry Oxygen 98 % (no code) 95 - 100 % 05-13-2019 no name [facility] saturation in 12:32-0500 ([id number]) Arterial blood by Pulse oximetry Oxygen 95 % (no code) 95 - 100 % 05-11-2019 no name [facility] saturation in 10:51-0500 ([id number]) Arterial blood by Pulse oximetry Oxygen 95 % (no code) 95 - 100 % 05-10-2019 no name [facility] saturation in 07:36-0500 ([id number]) Arterial blood by Pulse oximetry Oxygen 82 % (LL) 95 - 100 % 05-09-2019 no name [facility] saturation in 07:10-0500 ([id number]) Arterial blood by Pulse oximetry Oxygen 99 % (no code) 95 - 100 % 05-08-2019 no name [facility] saturation in 07:43-0500 ([id number]) Arterial blood by Pulse oximetry Oxygen 98 % (no code) 95 - 100 % 05-07-2019 no name [facility] saturation in 08:43-0500 ([id number]) Arterial blood by Pulse oximetry Oxygen 100 % (no code) 95 - 100 % 05-06-2019 no name [facility] saturation in 05:36-0500 ([id number]) Arterial blood by Pulse oximetry Oxygen 99 % (no code) 95 - 100 % 05-04-2019 no name [facility] saturation in 11:45-0500 ([id number]) Arterial blood by Pulse oximetry Oxygen 99 % (no code) 95 - 100 % 05-04-2019 no name [facility] saturation in 03:48-0500 ([id number]) Arterial blood by Pulse oximetry Oxygen 98 % (no code) 95 - 100 % 05-03-2019 no name [facility] saturation in 08:33-0500 ([id number]) Arterial blood by Pulse oximetry Oxygen 98 % (no code) 95 - 100 % 05-02-2019 no name [facility] saturation in 10:49-0500 ([id number]) Arterial blood by Pulse oximetry Oxygen 97 % (no code) 95 - 100 % 04-29-2019 no name [facility] saturation in 03:23-0500 ([id number]) Arterial blood by Pulse oximetry Oxygen 99 % (no code) 95 - 100 % 04-27-2019 no name [facility] saturation in 08:15-0500 ([id number]) Arterial blood by Pulse oximetry Oxygen 94 % (no code) 95 - 100 % 04-26-2019 no name [facility] saturation in 06:29-0500 ([id number]) Arterial blood by Pulse oximetry Oxygen 99 % (no code) 95 - 100 % 04-25-2019 no name [facility] saturation in 08:37-0500 ([id number]) Arterial blood by Pulse oximetry Oxygen 98 % (no code) 95 - 100 % 04-22-2019 no name [facility] saturation in 05:03-0500 ([id number]) Arterial blood by Pulse oximetry Oxygen 98 % (no code) 95 - 100 % 04-21-2019 no name [facility] saturation in 05:20-0500 ([id number]) Arterial blood by Pulse oximetry Oxygen 98 % (no code) 95 - 100 % 04-20-2019 no name [facility] saturation in 05:16-0500 ([id number]) Arterial blood by Pulse oximetry Oxygen 98 % (no code) 95 - 100 % 04-19-2019 no name [facility] saturation in 08:40-0500 ([id number]) Arterial blood by Pulse oximetry Oxygen 98 % (no code) 95 - 100 % 04-18-2019 no name [facility] saturation in 06:29-0500 ([id number]) Arterial blood by Pulse oximetry Oxygen 98 % (no code) 95 - 100 % 04-16-2019 no name [facility] saturation in 09:32-0500 ([id number]) Arterial blood by Pulse oximetry Oxygen 98 % (no code) 95 - 100 % 04-15-2019 no name [facility] saturation in 04:22-0500 ([id number]) Arterial blood by Pulse oximetry Oxygen 97 % (no code) 95 - 100 % 04-14-2019 no name [facility] saturation in 08:57-0500 ([id number]) Arterial blood by Pulse oximetry Oxygen 98 % (no code) 95 - 100 % 04-13-2019 no name [facility] saturation in 07:42-0500 ([id number]) Arterial blood by Pulse oximetry Oxygen 98 % (no code) 95 - 100 % 04-12-2019 no name [facility] saturation in 09:02-0500 ([id number]) Arterial blood by Pulse oximetry Oxygen 98 % (no code) 95 - 100 % 04-11-2019 no name [facility] saturation in 08:52-0500 ([id number]) Arterial blood by Pulse oximetry Oxygen 98 % (no code) 95 - 100 % 04-09-2019 no name [facility] saturation in 07:50-0500 ([id number]) Arterial blood by Pulse oximetry Oxygen 98 % (no code) 95 - 100 % 04-08-2019 no name [facility] saturation in 06:55-0500 ([id number]) Arterial blood by Pulse oximetry Oxygen 98 % (no code) 95 - 100 % 04-06-2019 no name [facility] saturation in 04:17-0500 ([id number]) Arterial blood by Pulse oximetry Oxygen 98 % (no code) 95 - 100 % 04-05-2019 no name [facility] saturation in 07:45-0500 ([id number]) Arterial blood by Pulse oximetry Oxygen 100 % (no code) 95 - 100 % 04-04-2019 no name [facility] saturation in 06:42-0500 ([id number]) Arterial blood by Pulse oximetry Oxygen 98 % (no code) 95 - 100 % 04-03-2019 no name [facility] saturation in 04:24-0500 ([id number]) Arterial blood by Pulse oximetry Oxygen 98 % (no code) 95 - 100 % 04-01-2019 no name [facility] saturation in 04:52-0500 ([id number]) Arterial blood by Pulse oximetry Oxygen 98 % (no code) 95 - 100 % 03-30-2019 no name [facility] saturation in 05:11-0500 ([id number]) Arterial blood by Pulse oximetry Oxygen 96 % (no code) 95 - 100 % 03-29-2019 no name [facility] saturation in 06:57-0500 ([id number]) Arterial blood by Pulse oximetry Oxygen 98 % (no code) 95 - 100 % 03-28-2019 no name [facility] saturation in 06:42-0500 ([id number]) Arterial blood by Pulse oximetry Oxygen 98 % (no code) 95 - 100 % 03-28-2019 no name [facility] saturation in 03:22-0500 ([id number]) Arterial blood by Pulse oximetry Oxygen 99 % (no code) 95 - 100 % 03-26-2019 no name [facility] saturation in 11:03-0500 ([id number]) Arterial blood by Pulse oximetry Oxygen 98 % (no code) 95 - 100 % 03-25-2019 no name [facility] saturation in 04:08-0500 ([id number]) Arterial blood by Pulse oximetry Oxygen 98 % (no code) 95 - 100 % 03-22-2019 no name [facility] saturation in 07:35-0500 ([id number]) Arterial blood by Pulse oximetry Oxygen 97 % (no code) 95 - 100 % 03-21-2019 no name [facility] saturation in 08:19-0500 ([id number]) Arterial blood by Pulse oximetry Oxygen 97 % (no code) 95 - 100 % 03-18-2019 no name [facility] saturation in 04:06-0500 ([id number]) Arterial blood by Pulse oximetry Oxygen 92 % (no code) 95 - 100 % 03-14-2019 no name [facility] saturation in 09:10-0500 ([id number]) Arterial blood by Pulse oximetry Oxygen 88 % (LL) 95 - 100 % 03-12-2019 no name [facility] saturation in 08:01-0500 ([id number]) Arterial blood by Pulse oximetry Oxygen 92 % (no code) 95 - 100 % 03-11-2019 no name [facility] saturation in 06:15-0500 ([id number]) Arterial blood by Pulse oximetry Oxygen 84 % (LL) 95 - 100 % 03-09-2019 no name [facility] saturation in 04:59-0500 ([id number]) Arterial blood by Pulse oximetry Oxygen 95 % (no code) 95 - 100 % 03-08-2019 no name [facility] saturation in 08:05-0500 ([id number]) Arterial blood by Pulse oximetry Oxygen 99 % (no code) 95 - 100 % 03-07-2019 no name [facility] saturation in 07:16-0500 ([id number]) Arterial blood by Pulse oximetry Oxygen 97 % (no code) 95 - 100 % 03-05-2019 no name [facility] saturation in 08:25-0500 ([id number]) Arterial blood by Pulse oximetry Oxygen 97 % (no code) 95 - 100 % 03-04-2019 no name [facility] saturation in 05:33-0500 ([id number]) Arterial blood by Pulse oximetry Oxygen 96 % (no code) 95 - 100 % 03-02-2019 no name [facility] saturation in 04:57-0500 ([id number]) Arterial blood by Pulse oximetry Oxygen 97 % (no code) 95 - 100 % 03-01-2019 no name [facility] saturation in 08:19-0500 ([id number]) Arterial blood by Pulse oximetry Oxygen 96 % (no code) 95 - 100 % 02-28-2019 no name [facility] saturation in 05:44-0500 ([id number]) Arterial blood by Pulse oximetry Oxygen 96 % (no code) 95 - 100 % 02-24-2019 no name [facility] saturation in 09:46-0500 ([id number]) Arterial blood by Pulse oximetry Oxygen 98 % (no code) 95 - 100 % 02-23-2019 no name [facility] saturation in 06:24-0500 ([id number]) Arterial blood by Pulse oximetry Oxygen 97 % (no code) 95 - 100 % 02-22-2019 no name [facility] saturation in 08:17-0500 ([id number]) Arterial blood by Pulse oximetry Oxygen 96 % (no code) 95 - 100 % 02-21-2019 no name [facility] saturation in 09:55-0500 ([id number]) Arterial blood by Pulse oximetry Oxygen 96 % (no code) 95 - 100 % 02-18-2019 no name [facility] saturation in 04:49-0500 ([id number]) Arterial blood by Pulse oximetry Oxygen 99 % (no code) 95 - 100 % 02-16-2019 no name [facility] saturation in 04:55-0500 ([id number]) Arterial blood by Pulse oximetry Oxygen 97 % (no code) 95 - 100 % 02-15-2019 no name [facility] saturation in 04:22-0500 ([id number]) Arterial blood by Pulse oximetry Oxygen 95 % (no code) 95 - 100 % 02-14-2019 no name [facility] saturation in 04:48-0500 ([id number]) Arterial blood by Pulse oximetry Oxygen 98 % (no code) 95 - 100 % 02-13-2019 no name [facility] saturation in 02:42-0500 ([id number]) Arterial blood by Pulse oximetry Oxygen 96 % (no code) 95 - 100 % 02-10-2019 no name [facility] saturation in 11:05-0500 ([id number]) Arterial blood by Pulse oximetry Oxygen 96 % (no code) 95 - 100 % 02-09-2019 no name [facility] saturation in 05:11-0500 ([id number]) Arterial blood by Pulse oximetry Oxygen 97 % (no code) 95 - 100 % 02-08-2019 no name [facility] saturation in 06:59-0500 ([id number]) Arterial blood by Pulse oximetry Oxygen 98 % (no code) 95 - 100 % 02-07-2019 no name [facility] saturation in 04:27-0500 ([id number]) Arterial blood by Pulse oximetry Oxygen 98 % (no code) 95 - 100 % 02-06-2019 no name [facility] saturation in 03:41-0500 ([id number]) Arterial blood by Pulse oximetry Oxygen 99 % (no code) 95 - 100 % 02-04-2019 no name [facility] saturation in 05:20-0500 ([id number]) Arterial blood by Pulse oximetry Oxygen 97 % (no code) 95 - 100 % 02-02-2019 no name [facility] saturation in 07:09-0500 ([id number]) Arterial blood by Pulse oximetry Oxygen 89 % (L) 95 - 100 % 02-01-2019 no name [facility] saturation in 04:43-0500 ([id number]) Arterial blood by Pulse oximetry Oxygen 98 % (no code) 95 - 100 % 01-31-2019 no name [facility] saturation in 08:11-0500 ([id number]) Arterial blood by Pulse oximetry Oxygen 98 % (no code) 95 - 100 % 01-29-2019 no name [facility] saturation in 03:51-0500 ([id number]) Arterial blood by Pulse oximetry Oxygen 96 % (no code) 95 - 100 % 01-28-2019 no name [facility] saturation in 03:14-0500 ([id number]) Arterial blood by Pulse oximetry Oxygen 96 % (no code) 95 - 100 % 01-26-2019 no name [facility] saturation in 05:06-0500 ([id number]) Arterial blood by Pulse oximetry Oxygen 96 % (no code) 95 - 100 % 01-25-2019 no name [facility] saturation in 07:40-0500 ([id number]) Arterial blood by Pulse oximetry Oxygen 97 % (no code) 95 - 100 % 01-24-2019 no name [facility] saturation in 08:29-0500 ([id number]) Arterial blood by Pulse oximetry Oxygen 96 % (no code) 95 - 100 % 01-22-2019 no name [facility] saturation in 05:58-0400 ([id number]) Arterial blood by Pulse oximetry Oxygen 98 % (no code) 95 - 100 % 01-21-2019 no name [facility] saturation in 06:21-0400 ([id number]) Arterial blood by Pulse oximetry Oxygen 98 % (no code) 95 - 100 % 01-19-2019 no name [facility] saturation in 06:19-0400 ([id number]) Arterial blood by Pulse oximetry Oxygen 98 % (no code) 95 - 100 % 01-18-2019 no name [facility] saturation in 08:52-0400 ([id number]) Arterial blood by Pulse oximetry Systolic blood 170 mm[Hg] (HH) 90 - 120 02-16-2018 no name [facility] pressure mm[Hg] 14:51-0500 ([id number]) Systolic blood 121 mm[Hg] (no code) 90 - 120 01-06-2018 no name [facility] pressure mm[Hg] 08:55-0400 ([id number]) Interventions No Information Plan of Treatment The data below is from unstructured sources Discharge Date 07/20/14 11:10am Disposition 30 STILL A PATIENT Instructions/Education Provided DR. WALTON-EPITAXIS Gastrointestinal Bleeding (DC) Prescriptions See Medications Sectio n Referrals AUDRA LONGORIA MD (Unspec ified) 07/24/14 Address: [facility] [address] [place] [address] Reason(s) for Referral: THURSDAY AT 1:30 (Unspecified) (Physical Medicine and Rehab) (Physical Medicine and Rehab) OTILIO DICKENS DO (Unspecified) 08/09/14 Address: [address] [place] [id number] Reason(s) for Referral: July AT 10:40 A.M. MARY WALTON MD (Unspecified) 08/01/14 Address: [address] [place] [address], [facility] [address] [place], [place] [id number] Reason(s) for Referral: July DR. WALTON AT 9:00 A.M. Additional Instructions/Education -- Follow up with Dr. Dickens within 3 weeks or sooner. Office number is [phone]. --Follow up with transportation department supervisor Dr. Perry in [place] within 2 weeks. _Send home wiht Epistaxis instaructions and instructions to use ocena nasal spray as needed for the congestion adn to keep Care Plan and Goals [facility] ordered at [place] for PT/OT/RN/Bath Aid. RTC-ENT-2 weeks [place] Send home wiht Epistaxis instaructions and instructions to use ocena nasal spray as needed for the congestion adn to keep nose moist for the foreseeable future Discharge Date 07/20/14 11:10am Disposition 06 HOME HEALTH SERVICE Instructions/Education Provided DR. WALTON-EPITAXIS Gastrointestinal Bleeding (DC) Prescriptions See Medications Sectio n Referrals AUDRA LONGORIA MD (Unspec ified) 07/24/14 Address: [address] [place] [address] Reason(s) for Referral: THURSDAY AT 1:30 (Unspecified) (Physical Medicine and Rehab) (Physical Medicine and Rehab) OTILIO DICKENS DO (Unspecified) 08/09/14 Address: [address] [place] [id number] Reason(s) for Referral: July AT 10:40 A.M. MARY WALTON MD (Unspecified) 08/01/14 Address: [facility] [address] [facility] [address] [place], [place] [address] Reason(s) for Referral: July DR. WALTON AT 9:00 A.M. Additional Instructions/Education -- Follow up with Dr. Dickens within 3 weeks or sooner. Office number is [phone]. --Follow up with transportation department supervisor Dr. Perry in [place] within 2 weeks. _Send home wiht Epistaxis instaructions and instructions to use ocena nasal spray as needed for the congestion adn to keep Care Plan and Goals [facility] ordered at [place] for PT/OT/RN/Bath Aid. RTC-ENT-2 weeks [place] Send home wiht Epistaxis instaructions and instructions to use ocena nasal spray as needed for the congestion adn to keep nose moist for the foreseeable future Discharge Date 07/20/14 11:10am Disposition 06 HOME HEALTH SERVICE Instructions/Education Provided DR. WALTON-EPITAXIS Gastrointestinal Bleeding (DC) Prescriptions See Medications Sectio n Referrals AUDRA LONGORIA MD (Unspec ified) 07/24/14 Address: [address] [place] [address] Reason(s) for Referral: THURSDAY AT 1:30 (Unspecified) (Physical Medicine and Rehab) (Physical Medicine and Rehab) OTILIO DICKENS DO (Unspecified) 08/09/14 Address: [address] [place] [address] Reason(s) for Referral: July AT 10:40 A.M. MARY WALTON MD (Unspecified) 08/01/14 Address: [address], [facility] [address] [place] [address] Reason(s) for Referral: July DR. WALTON AT 9:00 A.M. Additional Instructions/Education -- Follow up with Dr. Dickens within 3 weeks or sooner. Office number is [phone]. --Follow up with transportation department supervisor Dr. Perry in [place] within 2 weeks. _Send home wiht Epistaxis instaructions and instructions to use ocena nasal spray as needed for the congestion adn to keep Care Plan and Goals [facility] ordered at [place] for PT/OT/RN/Bath Aid. RTC-ENT-2 weeks [place] Send home wiht Epistaxis instaructions and instructions [...] 11-12-2017 Patient encounter no information no name no or ganization name - 11-13-2017 12-31-2016 Patient encounter no information no name no or ganization name 05-15-2014 Patient encounter no information no name no or ganization name 05-03-2014 Patient encounter no information no name no or ganization name - 08-01-2014 11-01-2012 Patient encounter no information no name no or ganization name Patient encounter no information (no phone) [facility] (no phone) 08-03-2019 Patient encounter no information GEORGES CARTER (no [facility] (no 08-03-2019 phone) 07-20-2019 Patient encounter no information REGINA RUSSO MD (no [facility] [address] - procedure phone) [facility] 07-20-2019 (no phone) 06-16-2019 Patient encounter no information MARIANA HOWARD (no [facility] [place] [address] [facility] (no 06-16-2019 phone) 05-19-2019 Patient encounter no information LEE EDMONDS (no [facility] phone) [facility] [address] [facility] (no 05-19-2019 phone) 03-25-2019 Patient encounter no information no name no or ganization name - procedure 03-25-2019 03-25-2019 Patient encounter no information no name no or ganization name - procedure 03-25-2019 03-19-2019 Patient encounter no information no name no or ganization name - procedure 03-20-2019 02-10-2019 Patient encounter no information no name no or ganization name - procedure 02-10-2019 12-08-2018 Patient encounter no information no name no or ganization name - procedure 12-09-2018 11-13-2018 Patient encounter no information no name no or ganization name - procedure 11-14-2018 11-12-2018 Patient encounter no information no name no or ganization name - procedure 11-13-2018 11-12-2018 Patient encounter no information no name no or ganization name - procedure 11-13-2018 09-02-2018 Patient encounter no information no name no or ganization name - procedure 09-03-2018 08-02-2018 Patient encounter no information no name no or ganization name - procedure 08-03-2018 06-22-2018 Patient encounter no information no name no or ganization name - procedure 06-23-2018 05-21-2018 Patient encounter no information no name no or ganization name - procedure 05-22-2018 04-16-2018 Patient encounter no information no name no or ganization name - procedure 04-17-2018 04-15-2018 Patient encounter no information no name no or ganization name - procedure 04-16-2018 04-05-2018 Patient encounter no information no name no or ganization name - procedure 04-06-2018 04-05-2018 Patient encounter no information no name no or ganization name procedure 04-01-2018 Patient encounter no information no name no or ganization name - procedure 04-02-2018 10-09-2017 Patient encounter no information no name no or ganization name - procedure 10-10-2017 05-13-2017 Patient encounter no information no name no or ganization name - procedure 05-14-2017 04-16-2017 Patient encounter no information no name no or ganization name - procedure 04-17-2017 03-20-2017 Patient encounter no information no name no or ganization name - procedure 03-21-2017 02-02-2017 Patient encounter no information no name no or ganization name - procedure 02-02-2017 01-26-2017 Patient encounter no information no name no or ganization name - procedure 01-27-2017 01-14-2017 Patient encounter no information no name no or ganization name - procedure 01-15-2017 12-31-2016 Patient encounter no information REGINA RUSSO MD (no [facility] [address] procedure phone) [facility] (no phone) 12-07-2016 Patient encounter no information no name no or ganization name - procedure 12-08-2016 12-01-2016 Patient encounter no information no name no or ganization name - procedure 12-02-2016 10-10-2016 Patient encounter no information no name no or ganization name - procedure 10-11-2016 08-18-2016 Patient encounter no information no name no or ganization name - procedure 08-19-2016 06-03-2016 Patient encounter no information no name no or ganization name - procedure 06-04-2016 04-15-2016 Patient encounter no information no name no or ganization name - procedure 04-16-2016 08-02-2014 Patient encounter no information BENJAMIN RODRIGUEZ MD (no [facility] [address] procedure phone) [facility] (no phone) 05-15-2014 Patient encounter no information BENJAMIN RODRIGUEZ MD (no [facility] [address] procedure phone) [facility] (no phone) 05-03-2014 Patient encounter no information BENJAMIN RODRIGUEZ MD (no [facility] [address] - procedure phone) [facility] 07-31-2014 (no phone) Medical Equipment No Information Payers Normalized Payer Value Medicare no information Advance Directives Directive Response Recor ded Date/Time Advance Directives No 10:11am Health Care Power of Officer Captain No 07/16/14 10:11am Organ Donor No 07/16/14 [...] This clinical document has been generated using [employer] software that has been certified by the Office of the National Coordinator for Health Information Technology (ONC 15.99.04.3023.Diam.31.00.0.177556) and the National Committee for Corporate Vp [employer] & Online (NCQA, as an eMeasure certified technology). FOR [...] BASED ON T HE PRIMARY CLINICAL RECORDS. [employer]. provides no warranty or guara ntee of the accuracy or completeness of information in this document.The followi ng information is based on time limited clinical information
[2019-09-15] MEDS ORDERED: LACTATED RINGERS 1,000 ML IV PRN (10:19)
[2019-09-15] MEDS ORDERED: fentaNYL INJECTION 100 MCG/2 ML AMP ONE ×3 (10:25→16:05)
[2019-09-15] MEDS ORDERED: proPOfol 200 MG/20 ML (DIPRIVAN) VIAL IV ONE ×3 (10:25→15:39)
[2019-09-15] MEDS ORDERED: ONDANSETRON 4 MG/2 ML (SDV) Z0FRAN ONE ×3 (10:25→15:50)
[2019-09-15] MEDS ORDERED: MIDAZOLAM 2 MG/2 ML (VERSED) VIAL ONE ×2 (10:25→12:37)
[2019-09-15] MEDS ORDERED: LIDOCAINE PF 2% 5 ML (XYLOCAINE) VIAL ONE ×2 (10:25→12:37)
[2019-09-15] MEDS ORDERED: DEXAMETHASONE 10 MG/ML (DECADRON) 1 ML VIAL ONE ×2 (10:25→13:54)
[2019-09-15] MEDS ORDERED: ROCURONIUM 10 MG/ML 5 ML SYRINGE IV ONE (10:27)
[2019-09-15] MEDS ORDERED: ceFAZolin 2 GM IV Premixed 50 ML IV ONE (10:30)
[2019-09-15 11:25] LABS: BASOPHILS % (AUTO) 0 % (0-10); EOSINOPHILS # (AUTO) 0.1 10^3/uL (0.0-0.3); EOSINOPHILS % (AUTO) 1 % (0-10); HEMATOCRIT 32 % (35-52); HEMOGLOBIN 10.8 G/DL (11.5-16.0); LYMPHOCYTES # (AUTO) 1.4 X 10^3 (1.0-4.0); LYMPHOCYTES % (AUTO) 11 % (12-44); MEAN CORPUSCULAR HEMOGLOBIN 33 PG (25-34); MEAN CORPUSCULAR HGB CONC 33 G/DL (32-36); MEAN CORPUSCULAR VOLUME 98 FL (80-99); MEAN PLATELET VOLUME 11.1 FL (7.4-10.4); MONOCYTES # (AUTO) 0.6 X 10^3 (0.0-1.0); MONOCYTES % (AUTO) 5 % (0-12); NEUTROPHILS # (AUTO) 10.8 X 10^3 (1.8-7.8); NEUTROPHILS % (AUTO) 83 % (42-75); PLATELET COUNT 316 10^3/uL (130-400); RED CELL DISTRIBUTION WIDTH 12.5 % (10.0-14.5)
[2019-09-15] MEDS ORDERED: NS IV 1000 ML 1,000 ML IV SCH (11:33)
--- NOTE | 2019-09-15 11:33 | Progress Note-Pre Operative ---
Pre-Operative Progress Note H&P Reviewed The H&P was reviewed, patient examined and no changes noted. Date Seen by Provider: Sep 15, 2019 Time Seen by Provider: 11:00 Date H&P Reviewed: Sep 15, 2019 Time H&P Reviewed: 11:00 Pre-Operative Diagnosis: right foot gangrene ERICH CLEMENTE MD Sep 15, 2019 11:33
[2019-09-15] MEDS ORDERED: RT-ALBUTEROL SULF 2.5 MG/3 ML PRE-MIX VIAL INH SCH (11:45)
[2019-09-15] MEDS ORDERED: diphenhydrAMINE 50 MG/ML INJ (BENADRYL) IVP PRN (11:45)
[2019-09-15] MEDS ORDERED: diphenhydrAMINE 50 MG/ML INJ (BENADRYL) IV PRN (11:45)
[2019-09-15] MEDS ORDERED: fentaNYL INJECTION 1,000 MCG in NS (IVPB) 80 ML IV SCH (11:45)
[2019-09-15] MEDS ORDERED: NALOXONE 0.4 MG/ML 1 ML (NARCAN) VIAL IV PRN (11:45)
[2019-09-15] MEDS ORDERED: ceFAZolin INJECTION 1,000 MG in WATER (STERILE) FOR INJECTION 10 ML IV ONE (11:45)
[2019-09-15 11:46] LABS: CHLORIDE 98 MMOL/L (98-107); POTASSIUM 4.3 MMOL/L (3.6-5.0); SODIUM 132 MMOL/L (135-145)
[2019-09-15 11:47] LABS: CALCIUM 9.5 MG/DL (8.5-10.1)
[2019-09-15 11:48] LABS: GLUCOSE 80 MG/DL (70-105)
[2019-09-15 11:49] LABS: CARBON DIOXIDE 24 MMOL/L (21-32)
[2019-09-15 11:51] LABS: CREATININE SERUM 0.72 MG/DL (0.60-1.30); GFR ESTIMATED > 60
[2019-09-15 11:53] LABS: BUN/CREATININE RATIO 18
[2019-09-15] MEDS ORDERED: SEVOFLURANE (ULTANE) 15 ML INHAL SOLN ONE ×6 (12:37→15:22)
[2019-09-15] MEDS ORDERED: ESMOLOL 100 MG/10 ML (BREVIBLOC) VIAL ONE (12:40)
[2019-09-15] MEDS ORDERED: ceFAZolin 2 GM IV Premixed 50 ML IV SCH (14:00)
[2019-09-15] MEDS ORDERED: GLYCOPYRROLATE 0.2 MG/ML (ROBINUL) 2 ML VIAL ONE (14:16)
[2019-09-15] MEDS ORDERED: BUP/EPI 0.5% 1:200,000 (SENSORCAINE) 30 ML VIAL ONE (14:33)
--- NOTE | 2019-09-15 15:08 | Diagnostic Imaging Report ---
EXAM: Right knee at 2:35 PM INDICATION: Pre-amputation. TECHNIQUE: A single AP view of the right knee was obtained. COMPARISON: There are no prior studies available for comparison. 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 The prosthetic components seem to be in good alignment although there is a well-circumscribed area of diminished density adjacent to the inferior margin of the stem of the tibial prosthesis. This is of uncertain etiology but may be related to the groove for the prosthesis. This does not have the typical appearance of osteomyelitis.. There is no fracture identified. The soft tissues are unremarkable. There is a radiopaque instrument directed at the lateral aspect of the proximal fibula. IMPRESSION: 1. There is no evidence for an acute bony abnormality. 2. The lucency near the inferior margin of the stem of the tibial prosthesis is of uncertain etiology. If previous exams are available, they would be helpful for comparison. Dictated by: Dictated on workstation # [id number]
--- NOTE | 2019-09-15 15:09 | Progress Note-Post Operative ---
Post-Operative Progess Note Surgeon (s)/Neuropsychology Medical Consultant (s) Surgeon ERICH CLEMENTE MD Neuropsychology Medical Consultant: toby tello APRN Pre-Operative Diagnosis right foot gangrene Post-Operative Diagnosis same Procedure & Operative Findings Date of Procedure 09/15/19 Procedure Performed/Findings right below the knee amputation. Anesthesia Type get Estimated Blood Loss Estimated blood loss (mL): minimal Specimens/Packing Specimens Removed right foot ERICH CLEMENTE MD Sep 15, 2019 15:09
[2019-09-15] MEDS ORDERED: HYDR-83 PO (15:17)
--- NOTE | 2019-09-15 15:19 | Discharge Inst-Surgical ---
D/C Lap Instructions-FIDEO New, Converted, or Re-Newed RX: RX on Chart Follow Up Appt in 2 weeks keep leg splint on followed by craissa wrap 4 weeks. Activity as tolerated No driving for 24 hours No driving while on pain medications Incentive Spirometry use every 2 hours while awake Regular Diet Symptoms to Report: Fever over 101 degree F, Nausea/Vomiting Infection Signs and Symptoms to report: Increased redness, Foul odor of wound, Increased drainage Bathing instructions: May shower Operative Area Clean/Dry; Keep incision clean/dry If any problems/questions: Contact your physician or go to Emergency Room ERICH CLEMENTE MD Sep 15, 2019 15:19
[2019-09-15] MEDS: ONDANSETRON 4 MG/2 ML (SDV) Z0FRAN IVP PRN ×3 (15:55→16:57)
[2019-09-15] MEDS ORDERED: fentaNYL INJECTION 100 MCG/2 ML AMP IVP ONE (16:00)
--- NOTE | 2019-09-15 16:28 | OPERATIVE REPORT ---
DATE OF SERVICE: 09/15/2019 ATTENDING COAL UNLOADER: Talisha Gill APRN. PREOPERATIVE DIAGNOSIS: Right foot gangrene. POSTOPERATIVE DIAGNOSES: Right foot gangrene. PROCEDURE PERFORMED: Right hfrez-ghw-jeoy amputation. SURGEON: Erich Clemente MD. VASCULAR TECHNOLOGIST SONOGRAPHER: Jerson Sorensen APRN. ANESTHESIA: General endotracheal. ESTIMATED BLOOD LOSS: Minimal. FINDINGS: A completely occluded posterior tibial, anterior tibial and peroneal arteries. DISPOSITION: The patient tolerated the procedure well. INDICATIONS FOR PROCEDURE: The patient is an 84-year-old female, who we have seen before in the past. In May of 2019, she developed wounds of the toes and underwent wound care. She then developed a right medial foot wound as well. She was evaluated by cardiology, underwent ankle brachial index to bilateral lower extremities, which was abnormal. Then, she underwent an arteriogram, which did show complete occlusion of the posterior tibial, peroneal as well as the anterior tibial arteries. Due to her peripheral vascular disease and lack of distal target, she will not have adequate healing for transmetatarsal amputation to heal and she will require a below the knee amputation. DESCRIPTION OF PROCEDURE: The patient was brought to the operating room. After adequate IV pain and sedative medications and general endotracheal intubation, the right lower extremity was prepped and draped in a standard surgical fashion. A 0.5% Marcaine with epinephrine was then used to anesthetize the overlying skin and subcutaneous tissue after we measured out our posterior flap also approximately 4 cm below the tibial tuberosity due to her previous total knee implantation. We then cut the skin at our marking using a 10 blade. The subcutaneous tissue was then opened using electrocautery. We then proceeded with systematic dissection of the musculature including the anterior tibial and peroneal muscle. The peroneal artery was identified and found to be completely occluded. We then proceeded with the gastrocnemius muscle as well as the soleus muscle, identifying the posterior tibial artery, which was also occluded. We then created our posterior flap leaving gastrocnemius and soleus muscle intact. We then proceeded with our transection of the bone using cordless bone saw. The fibula was cut in the same manner approximately 1 cm more proximal. A periosteal elevator was then used to clear off any fascia as well as muscle attachments from the proximal bone. The edges were then softened using a bone rasp. Bone wax was placed into the end of the tibia. Good hemostasis was observed. This was all done under tourniquet. The tourniquet was then desufflated with visualization of good hemostasis. We then proceeded with approximation of the posterior and anterior fascia of the lower extremity using 2-0 Vicryl interrupted sutures. Subcutaneous tissue was then reapproximated with the same suture. Skin was closed using skin john. The stump was then covered with a nonstick followed by 4 x 4 gauze followed by Kerlix wrap. Orthoglass was then placed on the posterior aspect of the midthigh up to the stump to prevent contractures. We will leave this dressing on for at least 3 to 4 days and then the dressing will be taken down and then followed by sterile dressing followed by Kerlix followed by the splint to prevent contracture for the next two to four weeks. Job ID: [id number] DocumentID: [id number] Dictated Date: 09/15/2019 15:31:21 Powder Expert Date: 09/15/2019 16:27:42 Dictated By: ERICH CLEMENTE MD MTDD
--- NOTE | 2019-09-15 16:35 | NUR ---
PT TO ROOM 419 FROM RECOVERY. ORIENTED PT TO ROOM AND USE OF CALL LIGHT. PT VERBALIZED UNDERSTANDING.
[2019-09-15] MEDS: metroNIDAZOLE 500MG/100ML IVPB 100 ML IV SCH (17:29)
[2019-09-15] MEDS: 1/2 NS W/KCL 20 MEQ/L 1,000 ML IV SCH ×2 (17:29→18:13)
--- NOTE | 2019-09-15 18:40 | NUR ---
RT NOTIFIED OF PT NEEDING CONTINUOS PULSE OX AND INCENTIVE SPIROMETER.
[2019-09-15] MEDS: oxyCODONE 5 MG/5 ML ORAL SOLN (roxiCODONE) 5 ML UDC PO PRN (19:47)
[2019-09-15] MEDS: RT-ALBUTEROL SULF 2.5 MG/3 ML PRE-MIX VIAL INH SCH ×2 (20:03→22:31)
[2019-09-15] MEDS: ENOXAPARIN 30 MG/0.3 ML (LOVENOX) SYR SC SCH (22:50)
[2019-09-15] MEDS: ceFAZolin 2 GM IV Premixed 50 ML IV SCH (22:51)
[2019-09-15] MEDS: METOCLOPRAMIDE INJ 10 MG/2 ML (REGLAN) IV PRN (23:04)
[2019-09-16 00:29] VITALS: BP 125/59
[2019-09-16] MEDS: 1/2 NS W/KCL 20 MEQ/L 1,000 ML IV SCH ×2 (01:30→08:16)
[2019-09-16] MEDS: oxyCODONE 5 MG/5 ML ORAL SOLN (roxiCODONE) 5 ML UDC PO PRN ×4 (01:31→21:19)
[2019-09-16] MEDS: metroNIDAZOLE 500MG/100ML IVPB 100 ML IV SCH ×2 (01:38→08:46)
[2019-09-16] MEDS: ONDANSETRON 4 MG/2 ML (SDV) Z0FRAN IV PRN ×2 (01:38→08:46)
[2019-09-16] MEDS: RT-ALBUTEROL SULF 2.5 MG/3 ML PRE-MIX VIAL INH SCH ×6 (02:52→22:27)
[2019-09-16 04:00] VITALS: BP 142/64
[2019-09-16] MEDS: ceFAZolin 2 GM IV Premixed 50 ML IV SCH (06:03)
[2019-09-16 06:34] LABS: HEMOGLOBIN 9.6 G/DL (11.5-16.0); MEAN PLATELET VOLUME 10.8 FL (7.4-10.4); RED CELL DISTRIBUTION WIDTH 12.3 % (10.0-14.5); WHITE BLOOD COUNT 22.6 10^3/uL (4.3-11.0)
[2019-09-16 06:51] LABS: BUN/CREATININE RATIO 15; CALCIUM 8.8 MG/DL (8.5-10.1); CARBON DIOXIDE 21 MMOL/L (21-32); CHLORIDE 99 MMOL/L (98-107); CREATININE SERUM 0.75 MG/DL (0.60-1.30); GFR ESTIMATED > 60; GLUCOSE 151 MG/DL (70-105); POTASSIUM 5.1 MMOL/L (3.6-5.0); SODIUM 130 MMOL/L (135-145)
[2019-09-16 07:46] VITALS: BP 138/73
--- NOTE | 2019-09-16 07:55 | Anesthesia-General Post-Op ---
General Patient Condition Mental Status/LOC: Same as Preop Cardiovascular: Satisfactory Nausea/Vomiting: Absent Respiratory: Satisfactory Pain: Controlled Complications: Absent Post Op Complications Complications None Follow Up Care/Instructions Patient Instructions None needed. Anesthesia/Patient Condition Patient Condition Patient is doing well, no complaints, stable vital signs, no apparent adverse anesthesia problems. No complications reported per nursing. FERNANDO GRADY CRNA Sep 16, 2019 07:55
[2019-09-16] MEDS: SENNA W/DOCUSATE (SENOKOT S) TABLET PO SCH (08:46)
[2019-09-16] MEDS: ENOXAPARIN 30 MG/0.3 ML (LOVENOX) SYR SC SCH ×2 (08:46→21:20)
[2019-09-16] MEDS ORDERED: PANTOPRAZOLE 40 MG (PROTONIX) VIAL IV SCH (09:00)
[2019-09-16] MEDS: METOCLOPRAMIDE INJ 10 MG/2 ML (REGLAN) IV PRN ×2 (09:10→14:19)
--- NOTE | 2019-09-16 11:11 | Progress Note ---
Subjective Date Seen by a Provider: Sep 16, 2019 Time Seen by a Provider: 11:00 Subjective/Events-last exam doing ok. does have some phantom pain. no fever/chills. Objective Exam Vital Signs Date Time Temp Pulse Resp B/P (MAP) Pulse Ox O2 Delivery O2 Flow Rate FiO2 09/16/19 07:46 37.0 86 20 138/73 (94) 100 Room Air 09/16/19 07:42 99 Room Air 09/16/19 04:00 36.8 91 20 142/64 (90) 100 Room Air 09/16/19 02:52 98 Nasal Cannula 2.00 28 09/16/19 00:29 37.2 90 21 125/59 (81) 100 Room Air 09/15/19 22:31 99 Nasal Cannula 2.00 28 09/15/19 21:00 96 Room Air 09/15/19 21:00 18 09/15/19 20:03 96 Nasal Cannula 2.00 28 09/15/19 20:00 37.0 80 20 123/75 (91) 100 Room Air 09/15/19 18:30 36.8 89 144/74 (97) 09/15/19 17:35 74 164/74 (104) 09/15/19 16:55 96 Room Air 09/15/19 16:35 36.4 79 18 168/76 (106) 100 Room Air 09/15/19 16:30 Room Air 09/15/19 16:30 36 18 120/77 (91) 100 Room Air 09/15/19 16:25 Room Air 09/15/19 16:20 20 120/77 (91) 100 Room Air 09/15/19 16:15 Nasal Cannula 4 09/15/19 16:10 20 132/81 (98) 100 Nasal Cannula 4 09/15/19 16:05 Nasal Cannula 4 09/15/19 16:00 20 132/90 (104) 100 Nasal Cannula 4 09/15/19 15:55 Nasal Cannula 4 09/15/19 15:46 36.1 16 165/82 (109) 97 OxyMask 10 09/15/19 15:46 OxyMask 10 I & O 09/16/19 07:00 Intake Total 1490 ml Output Total 1325 ml Balance 165 ml Capillary Refill : Less Than 3 Seconds General Appearance: No Apparent Distress HEENT: PERRL/EOMI Neck: Full Range of Motion Respiratory: Chest Non Tender, Lungs Clear, Normal Breath Sounds Cardiovascular: Regular Rate, Rhythm Gastrointestinal: normal bowel sounds, non tender, soft Extremity: Slow Capillary Refill Neurologic/Psychiatric: Alert, Oriented x3 Skin: Normal Color Lymphatic: No Adenopathy Results Lab Laboratory Tests 09/15/19 14:05: 09/16/19 06:22: White Blood Count 22.6H, Red Blood Count 2.91L, Hemoglobin 9.6L, Hematocrit 29L, Mean Corpuscular Volume 99, Mean Corpuscular Hemoglobin 33, Mean Corpuscular Hem oglobin Concent 33, Red Cell Distribution Width 12.3, Platelet Count 335, Mean Platelet Volume 10.8H, Sodium Level 130L, Potassium Level 5.1H, Chloride Level 99, Carbon Dioxide Level 21, Anion Gap 10, Blood Urea Nitrogen 11, Creatinine 0.75, Estimat Glomerular Filtration Rate > 60, BUN/Creatinine Ratio 15, Glucose Level 151H, Calcium Level 8.8 Assessment/Plan Assessment/Plan Assess & Plan/Chief Complaint s/p right BKA. PT and OT. ARU consult. ERICH CLEMENTE MD Sep 16, 2019 11:11
[2019-09-16] MEDS ORDERED: METOCLOPRAMIDE INJ 10 MG/2 ML (REGLAN) IVP PRN (11:45)
[2019-09-16] MEDS ORDERED: ONDANSETRON 4 MG/2 ML (SDV) Z0FRAN IVP PRN (11:45)
[2019-09-16 12:00] VITALS: BP 127/54
--- NOTE | 2019-09-16 12:00 | Physical Therapy Evaluation ---
PT Evaluation-General Medical Diagnosis Admission Date Sep 15, 2019 at 09:22 Medical Diagnosis: Gangrene right foot Onset Date: Sep 15, 2019 Therapy Diagnosis Therapy Diagnosis: debility/weakness Height/Weight Height (Feet): 5 Height (Inches): 0.00 Weight (Pounds): 147 Weight (Ounces): 9.0 Precautions Precautions/Isolations: Fall Prevention, Standard Precautions Weight Bear Status Right Lower Extremity: Right Non Weight Bearing Left Lower Extremity: Left Full Weight Bearing Referral Physician: Martha Reason for Referral: Evaluation/Treatment Medical History Pertinent Medical History: Hypothroidism Additional Medical History [place] [facility] Current History s/p right BKA Reviewed History: Yes Social History Home: Single Level Prior Prior Level of Function SCALE: Activities may be completed with or without assistive devices. 1-Wyhdroxcsj-rzhonpx completes the activity by him/herself with no assistance from a helper. 5-Set-up or Clean-up Assistance-helper sets up or cleans up; patient completes activity. [place] assists only prior to or following the activity. 4-Supervision or Touching Assistance-helper provides verbal cues and/or touching/steadying and/or contact guard assistance as patient completes activity. Assistance may be provided throughout the activity or intermittently. 3-Partial/Moderate Assistance-helper does LESS THAN HALF the effort. [place] lif ts, holds or supports trunk or limbs, but provides less than half the effort. 2-Substantial/Maximal Assistance-helper does MORE THAN HALF the effort. [place] lifts or holds trunk or limbs and provides more than half the effort. 0-Pyyryatyw-hixtrk does ALL the effort. Patient does none of the effort to complete the activity. Or, the assistance of 2 or more helpers is required for the patient to complete the activity. If activity was not attempted, code reason: 7-Patient Refused. 9-Not Applicable-not attempted and the patient did not perform the activity before the current illness, exacerbation or injury. 10-Not Attempted due to Environmental Limitations-(lack of equipment, weather restraints, etc.). 88-Not Attempted due to Medical Conditions or Safety Concerns. Bed Mobility: 5 Transfers (B,C,W/C): 5 Gait: 5 Indoor Mobility (Ambulation): Needed Some Help Prior Devices Use: Walker PT Evaluation-Current Subjective Patient agrees to PT. Pain Numeric Pain Scale: 8 Location: Right, Soft Tissue Location Body Site: Knee (BKA) Pain Description: Acute Objective Patient Orientation: Person, Time, Situation ROM/Strength ROM Lower Extremities right fibroglass stay in place to prevent contracture per physician Strength Lower Extremities left LE 3-/5 grossly Integumentary/Posture Integumentary refer to nursing notes Bowel Incontinence: No Bladder Incontinence: No Posture WFL Neuromuscular (Tone, Coordination, Reflexes) diminished with all Sensory Vision: Functional Hearing: Impaired Sensation Right Lower Extremit: Impaired Sensation Left Lower Extremity: Impaired Transfers Roll Left to Right (QC): 2 Lying to Sitting/Side of Bed(Q: 1 Sit to Stand (QC): 1 Chair/Rmn-yi-Orukl Xfer(QC): 1 patient is resistive with all mobility/unable to perform sit to stand with FWW requiring dependent assist by PT. Gait Does the Patient Walk?: No and Walking Goal NOT indicated Balance Sitting Static: Fair Sitting Dynamic: Fair Standing Static: Poor Standing Dynamic: Poor Treatment Dr. Thomas notified of fibroglass stay cutting into patient hamstring. Physician instructed this PT to place padding between stay and skin then secure with Tyler wrap. PT did this with RN assist. Assessment/Needs 84 y.o. female, will benefit from skilled PT to address functional strength and mobility. Patient is severely debilitated and from a PT standpoint, may require extended care facility due to inability to care for self. Rehab Potential: Guarded PT Short Term Goals Short Term Goals Time Frame: Aug 31, 2019 Roll Left & Right: 3 Sit to lyin Lying to sitting on side of be: 3 Sit to stand: 3 Chair/oaz-uu-swftw transfer: 3 Toilet transfer: 3 PT Alf Goals Wrecking Crane Engine Operator Goals PT Wrecking Crane Engine Operator Goals Time Frame: Oct 08, 2019 Roll Left & Right (QC): 5 Sit to Lying (QC): 5 Lying-Sitting on Side/Bed(QC): 5 Sit to Stand (QC): 5 Chair/Ykn-na-Tmnla Xfer(QC): 5 Toilet Transfer (QC): 5 PT Plan Problem List Problem List: Activity Tolerance, Functional Strength, Safety, Balance, Gait, Transfer, Bed Mobility Treatment/Plan Treatment Plan: Continue Plan of Care Treatment Plan: Bed Mobility, Education, Functional Activity Za, Functional Strength, Gait, Safety, Therapeutic Exercise, Transfers Treatment Duration: Oct 08, 2019 Frequency: 6 times per week Estimated Hrs Per Day: .25 hour per day Patient and/or Family Agrees t: Yes Discharge Recommendations Therapy Discharge Recommendati: Other, See Comments (shelter facility) Time/GCodes Time In: 1130 Time Out: 1151 Total Billed Treatment Time: 21 Total Billed Treatment 1 visit EVModC 21 min ABRIL RENNER PT Sep 16, 2019 12:00
--- NOTE | 2019-09-16 12:10 | Consultation - Hospitalist ---
HPI History of Present Illness: HPI/Chief Complaint Mayra Olvera is an 81-year-old female with past medical history of hypothyroidism, seizure disorder, GERD, seasonal allergies, coronary artery disease, hyperlipidemia, depression, bladder spasms, who presented with gangrene and underwent below the knee amputation. She reports that she is doing well at this time. She does report some phantom limb pain. She denies any fevers or chills. She denies any chest pain or palpitations. She denies any shortness of breath or cough. She denies any abdominal pain, nausea, vomiting, or diarrhea. She has no other complaints or concerns. Source: patient Exam Limitations: no limitations Date Seen 09/16/19 Attending Physician Tuan Thomas MD PCP Mery Lea MD Referring Physician Tuan Thomas MD Date of Admission Sep 15, 2019 at 09:22 Home Medications & Allergies Home Medications Reviewed patient Home Medication Reconciliation performed by pharmacy medication reconciliations windshield repair technician and/or nursing. Patients Allergies have been reviewed. Allergies Allergies Coded Allergies Fish Containing Products (Unverified Allergy, Unknown, 07/17/14) TUNA from uncoded allergies Iodine and Iodide Containing Produc (Verified Allergy, Unknown, Rash, 09/14/19) adhesive tape (Verified Allergy, Unknown, 07/20/19) ciprofloxacin (Verified Allergy, Unknown, 07/20/19) morphine (Verified Allergy, Unknown, 08/28/05) Past Mmnoroi-Ijpmph-Bmlzkb Hx Past Med/Social Hx: Reviewed Nursing Past Med/Soc Hx Patient Social History Alcohol Use: Denies Use Recreational Drug Use: No Smoking Status: Former Smoker Former Smoker, Quit: Sep 14, 1967 Type Used: Cigarettes Physical Abuse Screen: No Sexual Abuse: No Recent Foreign Travel: No Contact w/other who traveled: No Recent Hopitalizations: No Recent Infectious Disease Expo: No Immunizations Up To Date Tetanus Booster (TDap): Unknown Date of Pneumonia Vaccine: Jul 16, 2012 Seasonal Allergies Seasonal Allergies: No Past Medical History Neurological: Dementia Reproductive: No Genitourinary: UTI-Chronic Gastrointestinal: Gastroesophageal Reflux, Diverticulosis, Irritable Bowel Musculoskeletal: Arthritis, Back Injury Endocrine: Hypothyroidsim HEENT: Cataract, Glaucoma Hearing Impairment: Hard of Hearing Psychosocial: Anxiety History of Blood Disorders: Yes (anemia) Family History Completed stroke 19 FATHER Myocardial infarction 19 FATHER Rectal cancer 19 MOTHER Review of Systems Constitutional: no symptoms reported EENTM: no symptoms reported Respiratory: no symptoms reported Cardiovascular: no symptoms reported Gastrointestinal: no symptoms reported Genitourinary: no symptoms reported Musculoskeletal: no symptoms reported Skin: no symptoms reported Psychiatric/Neurological: Paresthesia Physical Exam Physical Exam Vital Signs Vital Signs - First Documented 09/15/19 20:03 FiO2 28 Capillary Refill : Less Than 3 Seconds Height, Weight, BMI Height: 5'0.00" Weight: 147lbs. 9.0oz. 66.055993ks; 20.02 BMI Method: General Appearance: No Apparent Distress, Thin HEENT: PERRL/EOMI, Pharynx Normal Neck: Normal Inspection, Supple Respiratory: Lungs Clear, Normal Breath Sounds, No Respiratory Distress Cardiovascular: Regular Rate, Rhythm, No Edema, No Murmur Gastrointestinal: Normal Bowel Sounds, Non Tender, Soft Extremity: Other (Leg bandaged) Neurologic/Psychiatric: Alert, Oriented x3, Normal Mood/Affect Skin: Normal Color, Warm/Dry Results Results/Procedures Labs Laboratory Tests 09/15/19 10:50 09/16/19 06:22 Patient resulted labs reviewed. Imaging: Reviewed Imaging Report Assessment/Plan Assessment and Plan Assess & Plan/Chief Complaint Status post BKA Gangrene Debility Surgery primary Continue wound care Incentive spirometry Bowel regimen PT/OT Acute rehabilitation evaluation Hyperkalemia Hyponatremia Discontinue potassium containing fluids Continue sodium tablets Leukocytosis Likely reactive, no signs of acute infection Continue to monitor Coronary artery disease Hyperlipidemia Hypothyroidism Seizure disorder Seasonal allergies GERD Depression Bladder spasms Continue home meds DVT prophylaxis: Lovenox Diagnosis/Problems Diagnosis/Problems (1) S/P BKA (below knee amputation) Status: Acute (2) Gangrene of right foot Status: Acute (3) Hyperkalemia Status: Acute (4) Hyponatremia Status: Acute (5) Leukocytosis Status: Acute AYDIN RUIZ MD Sep 16, 2019 12:10
--- NOTE | 2019-09-16 12:23 | NUR ---
CM/SS: Visited with pt as to plan for discharge, along with Sharri from Inpatient Rehab Plan: Undetermined at this time Summary: Pt reports being in pain due to the amputee. Pt is also experiencing some nausea. Pt has difficulty with hearing. Pt having some issues with getting her tray for eating breakfast. This worker and June assisted pt. Pt is unable to provide any information as to her home and discharge it is believed that hearing is a factor. This worker will follow up. Spoke with physician Dr Thomas and he request pt go to inpatient rehab.
--- NOTE | 2019-09-16 13:19 | NUR ---
IRF Evaluation Chart review complete and findings discussed with Dr. Kohler. According to PT Evaluation, patient is dependent with bed mobility and transfers. Given this is POD 1, will continue to follow patient's progress as it relates to evaluation for rehabilitation program. Thank you for this referral.
[2019-09-16] MEDS: ONDANSETRON 4 MG/2 ML (SDV) Z0FRAN IVP PRN ×2 (13:44→21:20)
[2019-09-16] MEDS ORDERED: PROMETHAZINE INJ 25 MG/ML (PHENERGAN) AMP IVP PRN ×2 (13:45→15:45)
--- NOTE | 2019-09-16 14:36 | Occupational Therapy Eval ---
OT Evaluation-General/PLF Medical Diagnosis Admission Date Sep 15, 2019 at 09:22 Medical Diagnosis: Gangrene right foot Onset Date: Sep 15, 2019 Therapy Diagnosis Therapy Diagnosis: impaired ADLs/functional mobility Height/Weight Height (Feet): 5 Height (Inches): 0.00 Weight (Pounds): 147 Weight (Ounces): 9.0 Precautions Precautions/Isolations: Fall Prevention, Standard Precautions Weight Bear Status Weight Bearing Restriction: Non Weight Bearing Location Restriction: R LE Referral Physician: Martha Referral Reason: Evaluation/Treatment Medical History Pertinent Medical History: Hypothroidism Additional Medical History [facility]GH[facility] Current History s/p R BKA Social History Home: Single Level Current Living Status: Spouse ADL-Prior Level of Function SCALE: Activities may be completed with or without assistive devices. 7-Ldqfvvufsp-qblbgoc completes the activity by him/herself with no assistance from a helper. 5-Set-up or Clean-up Assistance-helper sets up or cleans up; patient completes activity. [place] assists only prior to or following the activity. 4-Supervision or Touching Assistance-helper provides verbal cues and/or touching/steadying and/or contact guard assistance as patient completes activity. Assistance may be provided throughout the activity or intermittently. 3-Partial/Moderate Assistance-helper does LESS THAN HALF the effort. [place] lifts, holds or supports trunk or limbs, but provides less than half the effort. 2-Substantial/Maximal Assistance-helper does MORE THAN HALF the effort. [place] lifts or holds trunk or limbs and provides more than half the effort. 8-Bfaskyloc-adzjgg does ALL the effort. Patient does none of the effort to complete the activity. Or, the assistance of 2 or more helpers is required for the patient to complete the activity. If activity was not attempted, code reason: 7-Patient Refused. 9-Not Applicable-not attempted and the patient did not perform the activity before the current illness, exacerbation or injury. 10-Not Attempted due to Environmental Limitations-(lack of equipment, weather restraints, etc.). 88-Not Attempted due to Medical Conditions or Safety Concerns. ADL PLOF Comments Pt reports her assists her with all ADLs, she also has a couple of "ladies" who come in to assist her throughout the weeks. She reports not having anyone to assist her/her from 7-8 in the evenings. Pt did not go into detail on level of assistance required due to pain level. Pt reports using a walker for functional mobility prior to R BKA. Self Care: Needed Some Help Functional Cognition: Independent OT Current Status Subjective Pt laying in bed, rates pain 10/10. Nurse present stating to remind pt she has the button available for pain meds. Mental Status/Objective Attachments: IV Current Glasses/Contacts: Yes Hearing Aids: Yes Dentures/Partials: No Upper Extremity ROM decreased, BUE shoulder flexion tested in supine, pt able to lift arms approx 20 degrees from bed. Upper Extremity Coordination slightly decreased due to decreased ROM. Pt able to flex at elbows in order to bring food to her mouth during tx. Upper Extremity Strength grossly 3-/5 MMT ADL-Treatment Eating (QC): 5 (Set up for containers, pt in bed using spoon to bring food to her mouth) Other Treatments Pt laying in bed, eating food with spoon. Agreeable to OT tx but screaming in pain. Nurse present stating pt is HUGHES and she has been writing messages for pt to understand as well as the need to remind pt about her button for pain medicine. OT spoke loudly to pt, pt reported she could hear OT. OT educated pt on purpose/benefits of OT, she verbalized understanding. Pt then provided information about PLOF and home set up. She was unable to provide all information needed about assistance level required & DME due to pain level reported. Pt yelling in pain, attempting to reposition leg to comfort but still reported pain. Pt unable to tolerate further tx on this date secondary to pain level. Post OT tx, pt laying in bed, call light and pain button in reach and all needs met. Education OT Patient Education: Correct positioning, Modified ADL techniques, Progress toward Goal/Update tx plan, Purpose of tx/functional activities, Rehab process Teaching Recipient: Patient Teaching Methods: Discussion Response to Teaching: Verbalize Understanding OT Director Market Intelligence Goals Director Market Intelligence Goals Time Frame: Sep 30, 2019 Eating (QC): 6 Oral Hygiene (QC): 5 Toileting Hygiene (QC): 3 Shower/Bathe Self (QC): 3 Upper Body Dressing (QC): 3 Lower Body Dressing (QC): 3 On/Off Footwear (QC): 3 1=Demonstrate adherence to instructed precautions during ADL tasks. 2=Patient will verbalize/demonstrate understanding of assistive devices/modifications for ADL. 3=Patient will improve strength/tolerance for activity to enable patient to perform ADL's. OT Education/Plan Problem List/Assessment Assessment: Decreased Activ Tolerance, Decreased UE Strength, Impaired Funct Balance, Impaired I ADL's, Impaired Self-Care Skills, Restricted Funct UE ROM Discharge Recommendations Plan/Recommendations: Continue POC Treatment Plan/Plan of Care Treatment,Training & Education: Yes Patient would benefit from OT for education, treatment and training to promote independence in ADL's, mobility, safety and/or upper extremity function for ADL's. Plan of Care: ADL Retraining, Functional Mobility, UE Funct Exercise/Act Treatment Duration: Sep 30, 2019 Frequency: 5 times per week Estimated Hrs Per Day: .25 hour per day Rehab Potential: Guarded Time/GCodes Start Time: 13:08 Stop Time: 13:16 Total Time Billed (hr/min): 8 Billed Treatment Time 1, RBITT MCCANN OT Sep 16, 2019 14:36
[2019-09-16] MEDS ORDERED: BISACODYL 10 MG SUPP (DULCOLAX) PR PRN ×2 (14:45→15:45)
[2019-09-16] MEDS: NS IV 1000 ML 1,000 ML IV SCH ×2 (15:37→21:16)
[2019-09-16 16:00] VITALS: BP 100/62
--- NOTE | 2019-09-16 17:30 | NUR ---
DULCOLAX SUPP GIVEN RECTALLY. LUCIANO. WELL. POOR RESULTS WITH EXPELLING SMALL AMT. OF FLATUS.
[2019-09-16 20:00] VITALS: BP 156/71
[2019-09-16] MEDS ORDERED: SODIUM CHLORIDE PO SCH (21:00)
[2019-09-16] MEDS ORDERED: NON-FORMULARY MEDICATION 1 EA EA (Ranolazine (Ranexa) 1,000 MG) PO SCH (21:00)
[2019-09-16] MEDS ORDERED: NON-FORMULARY MEDICATION 1 EA EA (Sertraline HCl 25 MG) PO SCH (21:00)
[2019-09-16] MEDS: MUPIROCIN 2% OINT 22 GM (BACTROBAN) TUBE TOP SCH (21:18)
[2019-09-16] MEDS: SODIUM CHLORIDE 1 GM TABLET PO SCH (21:18)
[2019-09-16] MEDS: RANOLAZINE ER 500 MG TAB (RANEXA) PO SCH (21:19)
[2019-09-16] MEDS: LEVETIRACETAM 500 MG (KEPPRA) TAB PO SCH (21:19)
[2019-09-16] MEDS: SIMvastatin 20 MG (ZOCOR) TAB PO SCH (21:19)
[2019-09-16] MEDS: SERTRALINE 50 MG (ZOLOFT) TABLET PO SCH (21:19)
[2019-09-16] MEDS: hydrOXYzine (ATARAX) 10 MG TAB PO PRN (21:20)
[2019-09-16] MEDS: OXYBUTYNIN (DITROPAN) 5 MG TAB PO SCH (21:20)
[2019-09-16] MEDS: PANTOPRAZOLE 40 MG (PROTONIX) TAB PO SCH (21:21)
--- NOTE | 2019-09-16 22:37 | NUR ---
added falls intervention to outcome as patient scores as a fall risk
[2019-09-17] VITALS (7 sets, daily range): BP systolic 112–173; BP diastolic 64–87
[2019-09-17] MEDS: oxyCODONE 5 MG/5 ML ORAL SOLN (roxiCODONE) 5 ML UDC PO PRN ×2 (03:03→11:50)
[2019-09-17] MEDS: RT-ALBUTEROL SULF 2.5 MG/3 ML PRE-MIX VIAL INH SCH ×5 (03:10→18:55)
[2019-09-17] MEDS: LEVOTHYROXINE 50 MCG (LEVOTHROID) TAB PO SCH (06:35)
[2019-09-17] MEDS: NS IV 1000 ML 1,000 ML IV SCH ×3 (06:36→19:03)
[2019-09-17] MEDS: hydrOXYzine (ATARAX) 10 MG TAB PO PRN ×2 (06:42→20:02)
[2019-09-17] MEDS: LORATADINE (CLARITIN) 10 MG TAB PO SCH (08:41)
[2019-09-17] MEDS: guaiFENesin (MUCINEX) 600 MG TAB PO SCH (08:41)
[2019-09-17] MEDS: SENNA W/DOCUSATE (SENOKOT S) TABLET PO SCH (08:41)
[2019-09-17] MEDS: PANTOPRAZOLE 40 MG (PROTONIX) TAB PO SCH ×2 (08:41→20:02)
[2019-09-17] MEDS: OXYBUTYNIN (DITROPAN) 5 MG TAB PO SCH ×2 (08:41→20:02)
[2019-09-17] MEDS: ASPIRIN E.C. 81 MG (ECOTRIN) TAB PO SCH (08:42)
[2019-09-17] MEDS: RANOLAZINE ER 500 MG TAB (RANEXA) PO SCH ×2 (08:42→20:02)
[2019-09-17] MEDS: ENOXAPARIN 30 MG/0.3 ML (LOVENOX) SYR SC SCH ×2 (08:43→20:03)
[2019-09-17] MEDS: DOCUSATE SODIUM 100 MG (COLACE) CAP PO SCH (08:43)
[2019-09-17] MEDS: LEVETIRACETAM 500 MG (KEPPRA) TAB PO SCH ×2 (08:43→20:03)
[2019-09-17] MEDS: MUPIROCIN 2% OINT 22 GM (BACTROBAN) TUBE TOP SCH ×2 (08:44→20:04)
[2019-09-17] MEDS: SODIUM CHLORIDE 1 GM TABLET PO SCH ×2 (08:44→20:03)
[2019-09-17] MEDS: FLUTICASONE NASAL SPRAY (FLONASE) 16 GM BTL NS SCH (08:46)
[2019-09-17] MEDS ORDERED: NON-FORMULARY MEDICATION 1 EA EA (Docusate Sodium 100 MG) PO SCH (09:00)
[2019-09-17] MEDS ORDERED: ELUXADOLINE 75 MG PO SCH (09:00)
[2019-09-17] MEDS ORDERED: NON-FORMULARY MEDICATION 1 EA EA (Guaifenesin 400 MG) PO SCH (09:00)
[2019-09-17] MEDS ORDERED: NON-FORMULARY MEDICATION 1 EA EA (Fluticasone Propionate 2 SPRAY) NSEACH SCH (09:00)
--- NOTE | 2019-09-17 09:00 | NUR ---
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
[2019-09-17 09:41] LABS: BASOPHILS % (AUTO) 0 % (0-10); EOSINOPHILS % (AUTO) 0 % (0-10); HEMATOCRIT 30 % (35-52); LYMPHOCYTES # (AUTO) 1.2 X 10^3 (1.0-4.0); LYMPHOCYTES % (AUTO) 5 % (12-44); MEAN CORPUSCULAR HEMOGLOBIN 32 PG (25-34); MEAN CORPUSCULAR HGB CONC 33 G/DL (32-36); MEAN CORPUSCULAR VOLUME 98 FL (80-99); MEAN PLATELET VOLUME 10.9 FL (7.4-10.4); MONOCYTES % (AUTO) 8 % (0-12); NEUTROPHILS # (AUTO) 22.2 X 10^3 (1.8-7.8); NEUTROPHILS % (AUTO) 88 % (42-75); PLATELET COUNT 302 10^3/uL (130-400); RED CELL DISTRIBUTION WIDTH 12.8 % (10.0-14.5); WHITE BLOOD COUNT 25.4 10^3/uL (4.3-11.0)
[2019-09-17 09:58] LABS: BUN/CREATININE RATIO 11; CALCIUM 8.7 MG/DL (8.5-10.1); CARBON DIOXIDE 20 MMOL/L (21-32); CHLORIDE 100 MMOL/L (98-107); CREATININE SERUM 0.63 MG/DL (0.60-1.30); GFR ESTIMATED > 60; GLUCOSE 112 MG/DL (70-105); POTASSIUM 3.7 MMOL/L (3.6-5.0); SODIUM 132 MMOL/L (135-145)
[2019-09-17 10:18] LABS: HYPERSEGMENTED NEUT MODERATE; LYMPHOCYTES % (MANUAL) 4 %; MONOCYTES % (MANUAL) 5 %; NEUTROPHILS % (MANUAL) 91 %; RBC MORPH NORMAL
--- NOTE | 2019-09-17 10:21 | Progress Note - Hospitalist ---
Subjective HPI/CC On Admission Date Seen by Provider: Sep 17, 2019 Time Seen by Provider: 09:20 Mayra Olvera is an 81-year-old female with past medical history of hypothyroidism, seizure disorder, GERD, seasonal allergies, coronary artery disease, hyperlipidemia, depression, bladder spasms, who presented with gangrene and underwent below the knee amputation. She reports that she is doing well at this time. She does report some phantom limb pain. She denies any fevers or chills. She denies any chest pain or palpitations. She denies any shortness of breath or cough. She denies any abdominal pain, nausea, vomiting, or diarrhea. She has no other complaints or concerns. Subjective/Events-last exam She reports pain in her shoulders. She continues to have phantom limb pain. She is disoriented to place but oriented to self and year. She denies any fevers or chills. She denies any shortness of breath or cough. She denies any dysuria. She denies any abdominal pain, nausea, or vomiting. Objective Exam Vital Signs Vital Signs Date Time Temp Pulse Resp B/P (MAP) Pulse Ox O2 Delivery O2 Flow Rate FiO2 09/17/19 09:32 98 Room Air 09/17/19 08:00 37.4 98 20 164/73 (103) 09/16/19 02:52 2.00 28 Capillary Refill : Less Than 3 Seconds General Appearance: No Apparent Distress, Chronically ill, Thin Respiratory: Lungs Clear, Normal Breath Sounds, No Respiratory Distress Cardiovascular: Regular Rate, Rhythm, No Edema, No Murmur Gastrointestinal: Normal Bowel Sounds, Non Tender, Soft Extremity: No Pedal Edema, Other (Bandage in place right lower extremity BKA) Neurologic/Psychiatric: Alert, Disoriented, Other (Hearing-impaired) Skin: Normal Color, Warm/Dry Results/Procedures Lab Laboratory Tests 09/17/19 09:34 Patient resulted labs reviewed. Imaging: Reviewed Imaging Report Assessment/Plan Assessment and Plan Assess & Plan/Chief Complaint Status post BKA Gangrene Debility Surgery primary Continue wound care Incentive spirometry Bowel regimen PT/OT Planning for transfer to acute rehabilitation on Thursday Leukocytosis Likely due to perioperative Decadron No signs or symptoms of infectious source Obtain chest x-ray and urinalysis Add on procalcitonin Coronary artery disease Hyperlipidemia Hypothyroidism Seizure disorder Seasonal allergies GERD Depression Bladder spasms Hyponatremia Continue home meds DVT prophylaxis: Lovenox Hyperkalemia, resolved Diagnosis/Problems Diagnosis/Problems (1) S/P BKA (below knee amputation) Status: Acute (2) Gangrene of right foot Status: Acute (3) Hyperkalemia Status: Resolved Resolution Date/Time: 09/17/19 @ 10:20 (4) Hyponatremia Status: Chronic (5) Leukocytosis Status: Acute Qualifiers: Leukocytosis type: leukemoid reaction Qualified Codes: D72.823 - Leukemoid reaction AYDIN RUIZ MD Sep 17, 2019 10:21
[2019-09-17 10:33] LABS: BILIRUBIN,URINE NEGATIVE (NEGATIVE); CLARITY,URINE SL CLOUDY; COLOR,URINE YELLOW; GLUCOSE, URINE (UA) NEGATIVE (NEGATIVE); KETONES,URINE NEGATIVE (NEGATIVE); LEUKOCYTE ESTERASE ,URINE NEGATIVE (NEGATIVE); NITRITE,URINE NEGATIVE (NEGATIVE); PROTEIN,URINE NEGATIVE (NEGATIVE)
--- NOTE | 2019-09-17 10:37 | Diagnostic Imaging Report ---
CHEST 1 VIEW, AP/PA ONLY Indication: Leukocytosis Comparison: 07/20/2019 Findings: No focal airspace disease in the visualized lungs. Please note that the posterior lower lobes are poorly evaluated by portable radiography. No pleural effusion or pneumothorax. Normal cardiomediastinal silhouette. Calcified left perihilar nodule is unchanged. Severe degenerative changes in the bilateral glenohumeral joints. Impression: 1. No acute cardiopulmonary process by portable radiography. Dictated by: Dictated on workstation # [id number]
[2019-09-17 10:56] LABS: BACTERIA,URINE NEGATIVE /HPF; HYALINE CASTS, URINE RARE /LPF
--- NOTE | 2019-09-17 11:12 | Physical Therapy Daily Note ---
PT Daily Note-Current Subjective Pt. in bed, very [place] and frequently says "it hurts so bad" and cries in pain. Unable to give objective pain rating. Transfers SCALE: Activities may be completed with or without assistive devices. 6-Vnypxzmarv-bnmxili completes the activity by him/herself with no assistance from a helper. 5-Set-up or Clean-up Assistance-helper sets up or cleans up; patient completes activity. Hannah assists only prior to or following the activity. 4-Supervision or Touching Assistance-helper provides verbal cues and/or touching/steadying and/or contact guard assistance as patient completes activity. Assistance may be provided throughout the activity or intermittently. 3-Partial/Moderate Assistance-helper does LESS THAN HALF the effort. Hannah lifts, holds or supports trunk or limbs, but provides less than half the effort. 2-Substantial/Maximal Assistance-helper does MORE THAN HALF the effort. Hannah lifts or holds trunk or limbs and provides more than half the effort. 7-Ewzyhqyci-lbklrj does ALL the effort. Patient does none of the effort to complete the activity. Or, the assistance of 2 or more helpers is required for the patient to complete the activity. If activity was not attempted, code reason: 7-Patient Refused. 9-Not Applicable-not attempted and the patient did not perform the activity before the current illness, exacerbation or injury. 10-Not Attempted due to Environmental Limitations-(lack of equipment, weather restraints, etc.). 88-Not Attempted due to Medical Conditions or Safety Concerns. Weight Bearing Right Lower Extremity: Right Non Weight Bearing Left Lower Extremity: Left Full Weight Bearing Exercises Supine Ex: Ankle pumps (L LE only), Heel Slides (L LE only), Straight leg raise, Hip abd/add Supine Reps: 10 Treatments LE exercise Assessment Current Status: Poor Progress, Fair Progress Pt. has decreased tolerance with activity, only willing to complete LE exercises but frequently cries out in pain. Pt. in bed post session with call light and needs met. PT Short Term Goals Short Term Goals Time Frame: Aug 31, 2019 Roll Left & Right: 3 Sit to lyin Lying to sitting on side of be: 3 Sit to stand: 3 Chair/fkx-ru-vrvui transfer: 3 Toilet transfer: 3 PT Miller Head Assistant Wet Process Goals Miller Head Assistant Wet Process Goals PT Miller Head Assistant Wet Process Goals Time Frame: Oct 08, 2019 Roll Left & Right (QC): 5 Sit to Lying (QC): 5 Lying-Sitting on Side/Bed(QC): 5 Sit to Stand (QC): 5 Chair/Egu-xz-Yelbi Xfer(QC): 5 Toilet Transfer (QC): 5 PT Plan Treatment/Plan Treatment Plan: Continue Plan of Care Treatment Plan: Bed Mobility, Education, Functional Activity Za, Functional Strength, Gait, Safety, Therapeutic Exercise, Transfers Treatment Duration: Oct 08, 2019 Frequency: 6 times per week Estimated Hrs Per Day: .25 hour per day Patient and/or Family Agrees t: Yes Time/GCodes Time In: 0950 Time Out: 1003 Total Billed Treatment Time: 13 Total Billed Treatment 1, Ex 13' AMPARO GUAJARDO PT Sep 17, 2019 11:12
--- NOTE | 2019-09-17 12:29 | Progress Note ---
Subjective Date Seen by a Provider: Sep 17, 2019 Time Seen by a Provider: 12:00 Subjective/Events-last exam patient confused and very hard of hearing. leukocytosis. negative homans sign. Objective Exam Vital Signs Date Time Temp Pulse Resp B/P (MAP) Pulse Ox O2 Delivery O2 Flow Rate FiO2 09/17/19 09:32 98 Room Air 09/17/19 08:00 37.4 98 20 164/73 (103) 100 Room Air 09/17/19 06:42 98 Room Air 09/17/19 04:00 37.0 107 18 152/79 (103) 98 Room Air 09/17/19 03:10 98 Room Air 09/17/19 00:00 37.5 110 20 173/80 (111) Room Air 09/16/19 22:27 98 Room Air 09/16/19 21:00 100 Room Air 09/16/19 21:00 20 09/16/19 20:00 37.2 89 18 156/71 (99) 100 Room Air 09/16/19 19:18 98 Room Air 09/16/19 16:00 36.8 78 20 100/62 (75) 98 Room Air 09/16/19 16:00 18 09/16/19 14:46 99 Room Air I & O 09/17/19 07:00 Intake Total 4300 ml Output Total 1875 ml Balance 2425 ml Capillary Refill : Less Than 3 Seconds General Appearance: No Apparent Distress HEENT: PERRL/EOMI Neck: Full Range of Motion Respiratory: Chest Non Tender, Decreased Breath Sounds Cardiovascular: Regular Rate, Rhythm Gastrointestinal: normal bowel sounds, non tender, soft Extremity: Other (bka dressing intact.) Neurologic/Psychiatric: Alert, Oriented x3 Skin: Normal Color Lymphatic: No Adenopathy Results Lab Laboratory Tests 09/17/19 09:34: White Blood Count 25.4H, Red Blood Count 3.09L, Hemoglobin 10.0L, Hematocrit 30L , Mean Corpuscular Volume 98, Mean Corpuscular Hemoglobin 32, Mean Corpuscular Hemoglobin Concent 33, Red Cell Distribution Width 12.8, Platelet Count 302, Mean Platelet Volume 10.9H, Neutrophils (%) (Auto) 88H, Lymphocytes (%) (Auto) 5L, Monocytes (%) (Auto) 8, Eosinophils (%) (Auto) 0, Basophils (%) (Auto) 0, Neutrophils # (Auto) 22.2H, Lymphocytes # (Auto) 1.2, Monocytes # (Auto) 2.0H, Eosinophils # (Auto) 0.0, Basophils # (Auto) 0.0, Neutrophils % (Manual) 91, Lymphocytes % (Manual) 4, Monocytes % (Manual) 5, Hypersegmented Neutrophils MODERATE, Blood Morphology Comment NORMAL, Sodium Level 132L, Potassium Level 3.7, Chloride Level 100, Carbon Dioxide Level 20L, Anion Gap 12, Blood Urea Nitrogen 7, Creatinine 0.63, Estimat Glomerular Filtration Rate > 60, BUN/Creatinine Ratio 11, Glucose Level 112H, Calcium Level 8.7, Procalcitonin 0.10H 09/17/19 10:25: Urine Color YELLOW, Urine Clarity SL CLOUDY, Urine pH 6.0, Urine Specific [place] 1.015L, Urine Protein NEGATIVE, Urine Glucose (UA) NEGATIVE, Urine Ketones NEGATIVE, Urine Nitrite NEGATIVE, Urine Bilirubin NEGATIVE, Urine Urobilinogen 0.2, Urine Leukocyte Esterase NEGATIVE, Urine RBC (Auto) TRACE-L, Urine RBC NONE, Urine WBC NONE, Urine Crystals NONE, Urine Bacteria NEGATIVE, Urine Casts PRESENT, Urine Hyaline Casts RARE, Urine Mucus NEGATIVE, Urine Culture Indicated NO Microbiology 09/15/19 MRSA Screen - Final, Complete Assessment/Plan Assessment/Plan Assess & Plan/Chief Complaint s/p right BKA. leukocytosis. u/a and cxr look ok. will follow. start abx for high risk UTI and pneumonia. PT and OT. ARU consult. ERICH CLEMENTE MD Sep 17, 2019 12:29
[2019-09-17] MEDS: LEVOFLOXACIN 500 MG/100 ML IV 100 ML IV SCH (13:56)
[2019-09-17] MEDS: oxyCODONE 5 MG/5 ML ORAL SOLN (roxiCODONE) 5 ML UDC PO SCH ×2 (16:08→20:02)
[2019-09-17] MEDS: ONDANSETRON 4 MG/2 ML (SDV) Z0FRAN IVP PRN (19:02)
[2019-09-17] MEDS: SERTRALINE 50 MG (ZOLOFT) TABLET PO SCH (20:03)
[2019-09-17] MEDS: SIMvastatin 20 MG (ZOCOR) TAB PO SCH (20:03)
[2019-09-18] MEDS: oxyCODONE 5 MG/5 ML ORAL SOLN (roxiCODONE) 5 ML UDC PO SCH ×3 (00:22→08:21)
[2019-09-18 04:30] VITALS: BP 125/56
[2019-09-18] MEDS: LEVOTHYROXINE 50 MCG (LEVOTHROID) TAB PO SCH (05:48)
[2019-09-18 07:15] LABS: BASOPHILS % (AUTO) 0 % (0-10); EOSINOPHILS % (AUTO) 0 % (0-10); HEMATOCRIT 26 % (35-52); HEMOGLOBIN 8.5 G/DL (11.5-16.0); LYMPHOCYTES # (AUTO) 0.9 X 10^3 (1.0-4.0); LYMPHOCYTES % (AUTO) 5 % (12-44); MEAN CORPUSCULAR HEMOGLOBIN 33 PG (25-34); MEAN CORPUSCULAR HGB CONC 33 G/DL (32-36); MEAN CORPUSCULAR VOLUME 99 FL (80-99); MEAN PLATELET VOLUME 11.4 FL (7.4-10.4); MONOCYTES # (AUTO) 1.6 X 10^3 (0.0-1.0); MONOCYTES % (AUTO) 9 % (0-12); NEUTROPHILS # (AUTO) 16.1 X 10^3 (1.8-7.8); NEUTROPHILS % (AUTO) 87 % (42-75); PLATELET COUNT 228 10^3/uL (130-400); RED CELL DISTRIBUTION WIDTH 12.5 % (10.0-14.5); WHITE BLOOD COUNT 18.5 10^3/uL (4.3-11.0)
[2019-09-18 07:24] LABS: CHLORIDE 103 MMOL/L (98-107); POTASSIUM 3.4 MMOL/L (3.6-5.0); SODIUM 134 MMOL/L (135-145)
[2019-09-18 07:25] LABS: CALCIUM 8.4 MG/DL (8.5-10.1); GLUCOSE 102 MG/DL (70-105)
[2019-09-18 07:27] LABS: CARBON DIOXIDE 19 MMOL/L (21-32)
[2019-09-18 07:29] LABS: CREATININE SERUM 0.57 MG/DL (0.60-1.30); GFR ESTIMATED > 60
[2019-09-18 07:30] LABS: BUN/CREATININE RATIO 12
[2019-09-18 08:00] VITALS: BP 160/81
[2019-09-18] MEDS: ENOXAPARIN 30 MG/0.3 ML (LOVENOX) SYR SC SCH (08:20)
[2019-09-18] MEDS: LEVETIRACETAM 500 MG (KEPPRA) TAB PO SCH (08:21)
[2019-09-18] MEDS: guaiFENesin (MUCINEX) 600 MG TAB PO SCH (08:21)
[2019-09-18] MEDS: SENNA W/DOCUSATE (SENOKOT S) TABLET PO SCH (08:21)
[2019-09-18] MEDS: ASPIRIN E.C. 81 MG (ECOTRIN) TAB PO SCH (08:21)
[2019-09-18] MEDS: PANTOPRAZOLE 40 MG (PROTONIX) TAB PO SCH (08:22)
[2019-09-18] MEDS: RANOLAZINE ER 500 MG TAB (RANEXA) PO SCH (08:22)
[2019-09-18] MEDS: LORATADINE (CLARITIN) 10 MG TAB PO SCH (08:22)
[2019-09-18] MEDS: DOCUSATE SODIUM 100 MG (COLACE) CAP PO SCH (08:22)
[2019-09-18] MEDS: LEVOFLOXACIN 500 MG/100 ML IV 100 ML IV SCH (08:22)
[2019-09-18] MEDS: OXYBUTYNIN (DITROPAN) 5 MG TAB PO SCH (08:22)
[2019-09-18] MEDS: SODIUM CHLORIDE 1 GM TABLET PO SCH (08:49)
[2019-09-18] MEDS: FLUTICASONE NASAL SPRAY (FLONASE) 16 GM BTL NS SCH (08:49)
[2019-09-18] MEDS: MUPIROCIN 2% OINT 22 GM (BACTROBAN) TUBE TOP SCH (08:50)
--- NOTE | 2019-09-18 09:28 | Progress Note ---
Subjective Date Seen by a Provider: Sep 18, 2019 Time Seen by a Provider: 09:20 Subjective/Events-last exam doing ok. pleasantly confused and extremely hard of hearing. VSS, afebrile. pain controlled. tolerating diet. Objective Exam Vital Signs Date Time Temp Pulse Resp B/P (MAP) Pulse Ox O2 Delivery O2 Flow Rate FiO2 09/18/19 06:00 18 09/18/19 04:30 36.8 86 18 125/56 (79) 97 Room Air 09/17/19 23:30 36.6 88 18 153/87 (109) 96 Room Air 09/17/19 21:38 94 Room Air 09/17/19 20:10 97 Room Air 09/17/19 19:20 36.5 85 18 134/64 (87) 97 Room Air 09/17/19 18:55 98 Room Air 09/17/19 15:48 37.4 81 16 112/69 (83) 95 Room Air 09/17/19 14:22 96 Room Air 09/17/19 12:00 37.2 95 22 147/76 (99) 98 Room Air 09/17/19 09:32 98 Room Air I & O 09/18/19 07:00 Intake Total 2670 ml Output Total 1300 ml Balance 1370 ml Capillary Refill : Less Than 3 SecondsNONE General Appearance: No Apparent Distress HEENT: PERRL/EOMI Neck: Full Range of Motion Respiratory: Chest Non Tender, Lungs Clear, Normal Breath Sounds Cardiovascular: Regular Rate, Rhythm Gastrointestinal: normal bowel sounds, non tender, soft Extremity: Slow Capillary Refill, Other (rt bka dressed/dry) Neurologic/Psychiatric: Alert, Oriented x3 Skin: Normal Color Lymphatic: No Adenopathy Results Lab Laboratory Tests 09/17/19 09:34: White Blood Count 25.4H, Red Blood Count 3.09L, Hemoglobin 10.0L, Hematocrit 30L , Mean Corpuscular Volume 98, Mean Corpuscular Hemoglobin 32, Mean Corpuscular Hemoglobin Concent 33, Red Cell Distribution Width 12.8, Platelet Count 302, Mean Platelet Volume 10.9H, Neutrophils (%) (Auto) 88H, Lymphocytes (%) (Auto) 5L, Monocytes (%) (Auto) 8, Eosinophils (%) (Auto) 0, Basophils (%) (Auto) 0, Neutrophils # (Auto) 22.2H, Lymphocytes # (Auto) 1.2, Monocytes # (Auto) 2.0H, Eosinophils # (Auto) 0.0, Basophils # (Auto) 0.0, Neutrophils % (Manual) 91, Lymphocytes % (Manual) 4, Monocytes % (Manual) 5, Hypersegmented Neutrophils MODERATE, Blood Morphology Comment NORMAL, Sodium Level 132L, Potassium Level 3.7, Chloride Level 100, Carbon Dioxide Level 20L, Anion Gap 12, Blood Urea Nitrogen 7, Creatinine 0.63, Estimat Glomerular Filtration Rate > 60, BUN/Creatinine Ratio 11, Glucose Level 112H, Calcium Level 8.7, Procalcitonin 0.10H 09/17/19 10:25: Urine Color YELLOW, Urine Clarity SL CLOUDY, Urine pH 6.0, Urine Specific [place] 1.015L, Urine Protein NEGATIVE, Urine Glucose (UA) NEGATIVE, Urine Ketones NEGATIVE, Urine Nitrite NEGATIVE, Urine Bilirubin NEGATIVE, Urine Urobilinogen 0.2, Urine Leukocyte Esterase NEGATIVE, Urine RBC (Auto) TRACE-L, Urine RBC NONE, Urine WBC NONE, Urine Crystals NONE, Urine Bacteria NEGATIVE, Urine Casts PRESENT, Urine Hyaline Casts RARE, Urine Mucus NEGATIVE, Urine Culture Indicated NO 09/18/19 06:40: White Blood Count 18.5H, Red Blood Count 2.61L, Hemoglobin 8.5L, Hematocrit 26L, Mean Corpuscular Volume 99, Mean Corpuscular Hemoglobin 33, Mean Corpuscular Hemoglobin Concent 33, Red Cell Distribution Width 12.5, Platelet Count 228, Mean Platelet Volume 11.4H, Neutrophils (%) (Auto) 87H, Lymphocytes (%) (Auto) 5L, Monocytes (%) (Auto) 9, Eosinophils (%) (Auto) 0, Basophils (%) (Auto) 0, Neutrophils # (Auto) 16.1H, Lymphocytes # (Auto) 0.9L, Monocytes # (Auto) 1.6H, Eosinophils # (Auto) 0.0, Basophils # (Auto) 0.0, Sodium Level 134L, Potassium Level 3.4L, Chloride Level 103, Carbon Dioxide Level 19L, Anion Gap 12, Blood Urea Nitrogen 7, Creatinine 0.57L, Estimat Glomerular Filtration Rate > 60, BUN/Creatinine Ratio 12, Glucose Level 102, Calcium Level 8.4L Microbiology 09/15/19 MRSA Screen - Final, Complete Assessment/Plan Assessment/Plan Assess & Plan/Chief Complaint s/p right BKA. leukocytosis. u/a and cxr look ok. will follow. start abx for high risk UTI and pneumonia. PT and OT. ARU consult. OK for transfer at any time. will take down dressing tomorrrow however continue to wrap with splint to prevent contracture. ERICH CLEMENTE MD Sep 18, 2019 09:28
--- NOTE | 2019-09-18 11:15 | Progress Note - Hospitalist ---
Subjective HPI/CC On Admission Date Seen by Provider: Sep 18, 2019 Time Seen by Provider: 09:00 Mayra Olvera is an 81-year-old female with past medical history of hypothyroidism, seizure disorder, GERD, seasonal allergies, coronary artery disease, hyperlipidemia, depression, bladder spasms, who presented with gangrene and underwent below the knee amputation. She reports that she is doing well at this time. She does report some phantom limb pain. She denies any fevers or chills. She denies any chest pain or palpitations. She denies any shortness of breath or cough. She denies any abdominal pain, nausea, vomiting, or diarrhea. She has no other complaints or concerns. Subjective/Events-last exam She is reading a book this morning. She denies any pain at this time but says she continues to have phantom limb pain. She denies any fevers or chills. She denies any chest pain or shortness of breath. She denies any nausea or vomiting. She has no other complaints or concerns. Objective Exam Vital Signs Vital Signs Date Time Temp Pulse Resp B/P (MAP) Pulse Ox O2 Delivery O2 Flow Rate FiO2 09/18/19 10:04 95 Room Air 09/18/19 08:00 36.4 97 16 160/81 (107) 09/16/19 02:52 2.00 28 Capillary Refill : Less Than 3 SecondsLess Than 3 Seconds General Appearance: No Apparent Distress, Chronically ill, Thin Respiratory: Lungs Clear, Normal Breath Sounds, No Respiratory Distress Cardiovascular: Regular Rate, Rhythm, No Edema, No Murmur Gastrointestinal: Normal Bowel Sounds, Non Tender, Soft Extremity: Non Tender, No Pedal Edema, Other (Right BKA with bandage in place) Neurologic/Psychiatric: Alert, Normal Mood/Affect; No Disoriented; Motor Weakness Skin: Normal Color, Warm/Dry Results/Procedures Lab Laboratory Tests 09/18/19 06:40 Patient resulted labs reviewed. Imaging: Reviewed Imaging Report Assessment/Plan Assessment and Plan Assess & Plan/Chief Complaint Status post BKA Gangrene Debility Surgery primary Continue wound care Incentive spirometry Bowel regimen PT/OT Transfer to acute rehabilitation today Leukocytosis Likely due to perioperative Decadron Improving No signs or symptoms of infectious source Chest x-ray and urinalysis unremarkable Coronary artery disease Hyperlipidemia Hypothyroidism Seizure disorder Seasonal allergies GERD Depression Bladder spasms Hyponatremia Continue home meds DVT prophylaxis: Lovenox Hyperkalemia, resolved Diagnosis/Problems Diagnosis/Problems (1) S/P BKA (below knee amputation) Status: Acute (2) Gangrene of right foot Status: Acute (3) Hyperkalemia Status: Resolved Resolution Date/Time: 09/17/19 @ 10:20 (4) Hyponatremia Status: Chronic (5) Leukocytosis Status: Acute Qualifiers: Leukocytosis type: leukemoid reaction Qualified Codes: D72.823 - Leukemoid reaction AYDIN RUIZ MD Sep 18, 2019 11:15
[2019-09-18 11:30] VITALS: BP 100/45
== END 2019-09-18 11:58 | DRG 240 ==
LOC: 4TH 09:22 → SURG 09:23 → 4TH 16:35
PROVIDERS: ADMIT Surgery; ATTEND Surgery
PROC: 0Y6H0Z3 Detachment at Right Lower Leg, Low, Open Approach (ICD-10-PCS; principal; 2019-09-15 14:01)
DX: I96 Gangrene, not elsewhere classified (principal); E87.1 Hypo-osmolality and hyponatremia; E03.9 Hypothyroidism, unspecified; K21.9 Gastro-esophageal reflux disease without esophagitis; G40.909 Epilepsy, unspecified, not intractable, without status epilepticus; I25.10 Atherosclerotic heart disease of native coronary artery without angina pectoris; E78.5 Hyperlipidemia, unspecified; D72.829 Elevated white blood cell count, unspecified; E87.5 Hyperkalemia; Z88.1 Allergy status to other antibiotic agents; Z88.5 Allergy status to narcotic agent; Z91.041 Radiographic dye allergy status; Z91.013 Allergy to seafood
CPT/HCPCS: 36415; 71045; 73560; 80048; 81000; 84145; 85007; 85025; 85027; 86850; 86900; 86901; 87081; 87635; 94640; 94664; 94760

== ENCOUNTER 2019-09-18 11:58 | Inpatient (IN) | payer MEDICARE, MEDICAID ==
[~2019-09-18] VITALS: Ht 152.4 cm; Wt 53.9 kg
[~2019-09-18 11:58] MED LIST changes: +BISACODYL 10 MG SUPP (DULCOLAX) PR PRN; +CALCIUM CARBONATE 500 MG (TUMS) TAB.CHEW PO PRN; +DOCUSATE SODIUM 100 MG (COLACE) CAP PO PRN; +DOCUSATE SODIUM 100 MG (COLACE) CAP PO SCH; +FLEET ENEMA ADULT 1 EA BTL PR PRN; +HYDR-83 PO; +LACTULOSE SYRUP 10GM/15ML (ENULOSE) 30ML UDC PO PRN; +LOPERAMIDE 2 MG (IMODIUM) TABLET PO PRN; +SENNA W/DOCUSATE (SENOKOT S) TABLET PO SCH; +diphenhydrAMINE 25 MG TAB (BENADRYL) PO PRN; +guaiFENesin/CODEINE (ROBITUSSIN AC) 10ML UDC PO PRN
--- NOTE | 2019-09-18 11:58 | NUR ---
Admitted to room 233, with an admitting diagnosis of debility post amputee, on 09-18-2019 from 4th floor via , accompanied by .WILBUR BROOKE introduced to surroundings, call light, bed controls, phone, TV, temperature control, lights, meal times, smoking policy, visitor policy, side rail policy, bathrooms and showers. Patient Rights given to patient in the handbook.WILBUR BROOKE verbalizes understanding that [facility] is not responsible for the loss or damage to any personal effects or valuables that are kept in the patients posession during their hospitalization. The following Patient Care Plans were discussed with the : Discharge Planning, ,, alteration in skin integrity and alteration of comfort]. WILBUR BROOKE verbalizes understanding of Interdisciplinary Patient Education. Patient and/or family were informed about the Rapid Response Team and its purpose. Patient received Patient Rights Booklet, which includes Privacy Act Statement and Data Collection Information Summary.
[2019-09-18 12:40] VITALS: BP 126/60
[2019-09-18] MEDS ORDERED: PROMETHAZINE INJ 25 MG/ML (PHENERGAN) AMP IM PRN (13:00)
[2019-09-18] MEDS ORDERED: PROCHLORPERAZINE 25 MG (COMPAZINE) SUPP PR PRN (13:00)
[2019-09-18] MEDS ORDERED: hydrOXYzine (ATARAX) 10 MG TAB PO PRN (13:00)
[2019-09-18] MEDS ORDERED: diphenhydrAMINE 50 MG/ML INJ (BENADRYL) IVP PRN (13:00)
[2019-09-18] MEDS ORDERED: fentaNYL INJECTION 100 MCG/2 ML AMP IVP PRN (13:00)
--- NOTE | 2019-09-18 13:03 | PM&R Post Admission Assessment ---
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 Dementia precludes fast recovery. She is complaining of right leg "phantom pain" and Fentanyl UTILIZATION REVIEW SPECIALIST will be DC and will obtain Fentanyl IV pain meds IVP for breakthrough and maintain PO pain meds. Bowels function will be monitored closely due to high risk for narcotic bowel risk. Fall risk is present. Dementia precludes details. I reviewed her acute med-surg hospital course in-depth. DNR orders per living will and confirming with son who is her DPOA. Disposition will likely need some sort of nursing facility since her has dementia also. Past Qjdptvb-Remkbx-Xdqwla Hx Past Med/Social Hx: Reviewed Nursing Past Med/Soc Hx, Reviewed and Corrections made Patient Social History Marrital Status: Employed/Student: retired Alcohol Use: Denies Use Smoking Status: Unknown if Ever Smoked Former Smoker, Quit: Sep 14, 1967 Type Used: Cigarettes Recent Hopitalizations: No Immunizations Up To Date Tetanus Booster (TDap): Unknown Date of Pneumonia Vaccine: Jul 16, 2012 Seasonal Allergies Seasonal Allergies: No Past Medical History Surgeries: Orthopedic Cardiac: High Cholesterol, Hypertension Neurological: Dementia, Seizure Disorder Reproductive: No Genitourinary: UTI-Chronic Gastrointestinal: Gastroesophageal Reflux, Diverticulosis, Irritable Bowel Musculoskeletal: Arthritis, Back Injury Endocrine: Hypothyroidsim HEENT: Cataract, Glaucoma Hearing Impairment: Hard of Hearing Psychosocial: Anxiety History of Blood Disorders: Yes (anemia) Family History Completed stroke 19 FATHER Myocardial infarction 19 FATHER Rectal cancer 19 MOTHER PM&R Allergy/Meds/Data Review Allergies Coded Allergies: Fish Containing Products (Unverified Allergy, Unknown, 07/17/14) TUNA from uncoded allergies Iodine and Iodide Containing Produc (Verified Allergy, Unknown, Rash, 09/14/19) adhesive tape (Verified Allergy, Unknown, 07/20/19) ciprofloxacin (Verified Allergy, Unknown, 07/20/19) morphine (Verified Allergy, Unknown, 08/28/05) Home Medications Scheduled Acetaminophen/Diphenhydramine (Tylenol Pm Ex-Strength Caplet), 1 EACH PO HS, (Reported) Aspirin (Aspir 81), 81 MG PO DAILY, (Reported) Calcium Carbonate/Vitamin D3 (Calcium 600 + Vit D 200 Tablet), 1 EACH PO BID, (Reported) Celecoxib (Celebrex), 100 MG PO BID, (Reported) Cholecalciferol (Vitamin D3) (Vitamin D3), 10 MCG PO DAILY, (Reported) Cranberry Fruit Concentrate (Azo Cranberry), 250 MG PO DAILY, (Reported) Docusate Sodium (Docusate Sodium), 100 MG PO DAILY, (Reported) Eluxadoline (Viberzi), 75 MG PO DAILY, (Reported) Fluticasone Propionate (Fluticasone Propionate), 2 SPRAY NSEACH DAILY, (Reported) Furosemide (Furosemide), 20 MG PO DAILY, (Reported) Guaifenesin (Guaifenesin), 400 MG PO DAILY, (Reported) Hydrocodone/Acetaminophen (Hydrocodone-Acetamin 5-325 mg), 1 EACH PO Q4H Lactobacillus Acidophilus (Probiotic Acidophilus), 1.5 MG PO DAILY, (Reported) Levetiracetam (Keppra), 250 MG PO BID, (Reported) Levothyroxine Sodium (Levothyroxine Sodium), 50 MCG PO DAILY, (Reported) Loratadine (Loratadine), 10 MG PO DAILY, (Reported) Melatonin/Pyridoxine HCl (B6) (Melatonin 5 mg Tablet), 5 MG PO HS, (Reported) Nitroglycerin (Nitroglycerin 0.6mg/HR Patch), 1 EACH TD DAILY, (Reported) Oxybutynin Chloride (Oxybutynin Chloride), 5 MG PO BID, (Reported) Pantoprazole Sodium (Pantoprazole Sodium), 40 MG PO BID, (Reported) Pnv with Ca,No.72/Iron/FA (Pnv Plus Multivit Tab), 1 EACH PO DAILY, (Reported) Potassium Chloride (Potassium Chloride), 10 MEQ PO BID, (Reported) Ranolazine (Ranexa), 1,000 MG PO BID, (Reported) Sertraline HCl (Sertraline HCl), 25 MG PO HS, (Reported) Simvastatin (Simvastatin), 20 MG PO HS, (Reported) Sodium Chloride (Sodium Chloride), 2,000 MG PO BID, (Reported) Ubidecarenone (Co Q10), 100 MG PO DAILY, (Reported) Scheduled PRN Acetaminophen (Tylenol Extra Strength), 1,000 MG PO Q4H PRN for pain/fever, (Reported) Dicyclomine HCl (Bentyl), 10 MG PO BID PRN for STOMACHE ACHE, (Reported) Methenamine/Sodium Salicylate (Cystex Plus Tablet), 1 EACH PO PRN PRN for BLADDER SPASMS, (Reported) Nitroglycerin (Nitroglycerin), 0.4 MG SL UD PRN for CHEST PAIN, (Reported) Phenazopyridine HCl (Phenazopyridine HCl), 95 MG PO DAILY PRN for BLADDER DISCOMFORT, (Reported) Tramadol HCl (Tramadol HCl), 25-50 MG PO TID PRN for PAIN-MILD (1-4), (Reported) Discontinued Medications Calcium Carbonate/Vitamin D3 (Gareth-600 W/Vit D Tablet), 1 TAB PO BID, (Reported) Discontinued Reason: Prescription changed Cephalexin (Cephalexin), 500 MG PO TID, (Reported) Discontinued Reason: No Longer Taking Cholecalciferol (Vitamin D3), 1,000 UNIT PO DAILY, (Reported) Discontinued Reason: Prescription changed Eluxadoline (Viberzi), 75 MG PO DAILY, (Reported) Discontinued Reason: No Longer Taking Fluoxetine HCl (Prozac), 10 MG PO DAILY, (Reported) Discontinued Reason: No Longer Taking Fluticasone Propionate (Flonase Nasal Bruner), 2 SPRAYS NS DAILY, (Reported) Discontinued Reason: Prescription changed L.acidoph & Paracasei,B.lactis (Probiotic), 1 EACH PO DAILY, (Reported) Discontinued Reason: No Longer Taking Nitroglycerin (Nitro-Dur), 0.6 MG TD DAILY, (Reported) Discontinued Reason: Prescription changed Ondansetron (Ondansetron Odt), 4 MG PO TID PRN for GI UPSET, (Reported) Discontinued Reason: No Longer Taking Pantoprazole Sod (Protonix Tab), 40 MG PO BID Discontinued Reason: New Order Ranolazine (Ranexa ER 1000mg), 1,000 MG PO BID, (Reported) Discontinued Reason: Prescription changed Sulfamethoxazole/Trimethoprim (Bactrim Ds Tablet), 1 EACH PO BID, (Reported) Discontinued Reason: No Longer Taking Ubidecarenone (Co Q-10), 10 MG PO DAILY, (Reported) Discontinued Reason: Prescription changed [Sodium Chloride 1GM], 2 GM PO BID, (Reported) Discontinued Reason: New Order Current Medications Current Medications Reviewed Review of Systems Constitutional: see HPI EENTM: no symptoms reported Respiratory: no symptoms reported Cardiovascular: no symptoms reported Gastrointestinal: constipation Genitourinary: no symptoms reported Musculoskeletal: joint pain Skin: no symptoms reported Psychiatric/Neurological: Other (confusion) Physical Exam Physical Exam Vital Signs Vital Signs - First Documented 09/18/19 12:40 Temp 37.0 Pulse 109 Resp 18 B/P (MAP) 126/60 (82) Pulse Ox 97 O2 Delivery Room Air Capillary Refill : Height, Weight, BMI Height: 5'0.00" Weight: 147lbs. 9.0oz. [id number]; 20.02 BMI Method: General Appearance: WD/WN, Anxious, Chronically ill, Mild Distress (due to pain right leg amputation site) Eyes: Bilateral Eye Normal Inspection, Bilateral Eye PERRL HEENT: PERRL/EOMI, Normal ENT Inspection, Pharynx Normal Neck: Full Range of Motion, Normal Inspection, Non Tender, Supple, Carotid Bruit Respiratory: Chest Non Tender, Lungs Clear, No Accessory Muscle Use, No Respiratory Distress, Decreased Breath Sounds Cardiovascular: Regular Rate, Rhythm, No Edema, No Gallop, No JVD, No Murmur, Normal Peripheral Pulses Gastrointestinal: Normal Bowel Sounds, No Organomegaly, No Pulsatile Mass, Non Tender, Soft Back: Normal Inspection, No CVA Tenderness, No Vertebral Tenderness Extremity: Normal Capillary Refill, Normal Inspection, Normal Range of Motion, Non Tender, No Calf Tenderness, No Pedal Edema, Other (right leg BKA surgical site with dressing intact) Neurologic/Psychiatric: Alert, No Motor/Sensory Deficits, Normal Mood/Affect, Disoriented, Other ([place]) Skin: Normal Color, Warm/Dry Lymphatic: No Adenopathy PM&R Medical Assessment & Plan REHAB/MEDICAL ASSESSMENT AND PLAN: REHAB IMPAIRMENT GROUP: Right BKA ETIOLOGIC DIAGNOSIS: Right BKA The comorbidities that impact the patients function and/or functional outcome by: advanced age, dementia, lives with with dementia, fall risk, [place], phantom pain right amputation site REHAB PLAN: The patient is being admitted to our comprehensive inpatient rehabilitation facility and can tolerate the intensity of service consisting of at least: 180 minutes of therapy a day, 5 out of 7 days a week Rehab treatment will consist of: ST will help improve cognition in order to follow therapy recs, PT OT will both help increase ADL and transfers from wheelchair in order to decrease caregiver burden The patient/family has a good understanding of our discharge process and will benefit from an interdisciplinary inpatient rehabilitation program. The patient has potential to make improvement and is in need of at least two of the following multidisciplinary therapies including but not limited to physical, occupational, speech, and prosthetics and orthotics. Additionally the patient will need services from respiratory, nutritional services, wound care, psychology, etc. (Customize this to each patient). Given the patients complex condition and risk of further medical complications, rehabilitation services cannot be safely or effectively provided at a lower level of care such as a [facility] facility. BARRIERS TO DISCHARGE: Dementia ESTIMATED LOS: 7 days DISPOSITION: [place] vs [facility] RELEVANT CHANGES SINCE PREADMISSION SCREENING: I have compared the patients medical and functional status at the time of the preadmission screening and there are: no changes PROGNOSIS: Fair REHABILITATION GOALS: 1. ST will help improve cognition in order to follow therapy recs, PT OT will both help increase ADL and transfers from wheelchair in order to decrease caregiver burden All the above goals were reviewed with the patient and he/she is in agreement. By signing this document, I acknowledge that I have personally performed a full physical examination on this patient within 24 hours of admission to this inpatient rehabilitation facility and have determined the patient to be able to tolerate the above course of treatment at an intensive level for a reasonable period of time. I will be completing a detailed individualized Plan of Care for this patient by day #4 of the patients stay based upon the Preadmission Screen, the Post-Admission Evaluation, and the therapy evaluations. Admission Dx/Comorbidities: (1) S/P BKA (below knee amputation) Status: Acute ICD Codes: Z89.519 - Acquired absence of unspecified leg below knee (2) Leukocytosis Status: Acute ICD Codes: D72.829 - Elevated white blood cell count, unspecified (3) Hyponatremia Status: Chronic ICD Codes: E87.1 - Hypo-osmolality and hyponatremia (4) Hyperkalemia Status: Resolved ICD Codes: E87.5 - Hyperkalemia (5) Peripheral vascular disease ICD Codes: I73.9 - Peripheral vascular disease, unspecified (6) Intermittent atrial fibrillation Status: Acute ICD Codes: I48.0 - Paroxysmal atrial fibrillation (7) Seizure disorder ICD Codes: G40.909 - Epilepsy, unspecified, not intractable, without status epilepticus (8) Hypothyroidism ICD Codes: E03.9 - Hypothyroidism, unspecified (9) Overactive bladder ICD Codes: N32.81 - Overactive bladder (10) Hyperlipemia ICD Codes: E78.5 - Hyperlipidemia, unspecified (11) Hypertension ICD Codes: I10 - Essential (primary) hypertension (12) Dementia ICD Codes: F03.90 - Unspecified dementia without behavioral disturbance (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 ICD Codes: G54.6 - Phantom limb syndrome with pain (14) Anemia ICD Codes: D64.9 - Anemia, unspecified 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
--- NOTE | 2019-09-18 13:12 | NUR ---
DR. MEYER HERE WITH ORDERS TO DC IVF AND FENTANYL ENVIRONMENTAL HEALTH INSPECTOR. PER DR. MEYER, NOTIFY DR. CLEMENTE AND ASK ABOUT PRN PAIN MEDICATION. DR. CLEMENTE NOTIFIED AND OK TO DC. NEW ORDER FOR FENTANYL- 50 MCG IV Q3H PRN SEVERE PAIN. SODIUM WAS 134 THIS AM AND POTASSIUM 3.4. SON STATES THAT PATIENT HAS A HX OF SEIZURES... BUT ONLY WHEN SODIUM IS CRITICALLY LOW. PATIENT IS ON KEPPRA. BED RAILS PADDED PER PROTOCOL AND DR. MEYER UPDATED.
--- NOTE | 2019-09-18 13:19 | NUR ---
PATIENT IS CURRENTLY ALERT TO PERSON, PLACE, AND TIME. REC'D IN REPORT THAT PATIENT HAS A HX OF DEMENTIA AND IS CONFUSED AT TIMES. VERY [place].
[2019-09-18] MEDS: oxyCODONE 5 MG/5 ML ORAL SOLN (roxiCODONE) 5 ML UDC PO SCH ×3 (13:28→20:35)
[2019-09-18] MEDS: polyethylene glycoL POWDER 17 GM (MIRALAX) PACK PO SCH ×2 (13:36→20:36)
--- NOTE | 2019-09-18 13:47 | NUR ---
FENTANYL COST REPORT CLERK DC'D PER ORDERS. 32.5MLS OF IV FENTANYL WASTED WITH NICO WRIGHT. Addendum: 09/18/19 at 1348 by KRISTINE CAIN RN IV SALINE LOCKED.
[2019-09-18 13:49] VITALS: BP 126/60
[2019-09-18] MEDS: BISACODYL 10 MG SUPP (DULCOLAX) PR PRN (14:40)
--- NOTE | 2019-09-18 14:40 | NUR ---
DULCOLAX SUPPOSITORY GIVEN. WILL MONITOR FOR RESULTS.
--- NOTE | 2019-09-18 15:29 | NUR ---
KEIRA (SON/DPOA) STATES THAT PATIENT IS A DNR... BUT HE KEEPS FORGETTING TO BRING THE PAPERS. STATES THAT HE WILL BRING THEM NEXT TIME HE COMES. DR. MEYER NOTIFIED WITH ORDERS TO CHANGE CODE STATUS TO DNR.
[2019-09-18 17:49] VITALS: BP 135/75
[2019-09-18] MEDS: SIMvastatin 20 MG (ZOCOR) TAB PO SCH (20:35)
[2019-09-18] MEDS: RANOLAZINE ER 500 MG TAB (RANEXA) PO SCH (20:36)
[2019-09-18] MEDS: SERTRALINE 50 MG (ZOLOFT) TABLET PO SCH (20:36)
[2019-09-18] MEDS: SODIUM CHLORIDE 1 GM TABLET PO SCH (20:36)
[2019-09-18] MEDS: OXYBUTYNIN (DITROPAN) 5 MG TAB PO SCH (20:36)
[2019-09-18] MEDS: PANTOPRAZOLE 40 MG (PROTONIX) TAB PO SCH (20:36)
[2019-09-18] MEDS: LEVETIRACETAM 500 MG (KEPPRA) TAB PO SCH (20:36)
[2019-09-18] MEDS: ENOXAPARIN 30 MG/0.3 ML (LOVENOX) SYR SC SCH (20:36)
[2019-09-18] MEDS: MUPIROCIN 2% OINT 22 GM (BACTROBAN) TUBE TOP SCH (20:37)
[2019-09-19] MEDS: oxyCODONE 5 MG/5 ML ORAL SOLN (roxiCODONE) 5 ML UDC PO SCH ×6 (01:53→20:38)
[2019-09-19 05:09] VITALS: BP 143/85
[2019-09-19] MEDS: LEVOTHYROXINE 50 MCG (LEVOTHROID) TAB PO SCH (05:38)
[2019-09-19 05:45] LABS: BASOPHILS % (AUTO) 0 % (0-10); EOSINOPHILS % (AUTO) 0 % (0-10); HEMATOCRIT 23 % (35-52); HEMOGLOBIN 7.6 G/DL (11.5-16.0); LYMPHOCYTES % (AUTO) 6 % (12-44); MEAN CORPUSCULAR HEMOGLOBIN 32 PG (25-34); MEAN CORPUSCULAR HGB CONC 33 G/DL (32-36); MEAN CORPUSCULAR VOLUME 98 FL (80-99); MEAN PLATELET VOLUME 11.6 FL (7.4-10.4); MONOCYTES # (AUTO) 1.4 X 10^3 (0.0-1.0); MONOCYTES % (AUTO) 8 % (0-12); NEUTROPHILS # (AUTO) 14.5 X 10^3 (1.8-7.8); NEUTROPHILS % (AUTO) 86 % (42-75); PLATELET COUNT 198 10^3/uL (130-400); RED CELL DISTRIBUTION WIDTH 12.4 % (10.0-14.5); WHITE BLOOD COUNT 16.9 10^3/uL (4.3-11.0)
[2019-09-19 06:04] LABS: ALBUMIN 2.7 GM/DL (3.2-4.5); CHLORIDE 102 MMOL/L (98-107); POTASSIUM 3.9 MMOL/L (3.6-5.0)
[2019-09-19 06:05] LABS: SODIUM 131 MMOL/L (135-145)
[2019-09-19 06:06] LABS: CALCIUM 8.1 MG/DL (8.5-10.1)
[2019-09-19 06:07] LABS: GLUCOSE 100 MG/DL (70-105)
[2019-09-19 06:08] LABS: CARBON DIOXIDE 20 MMOL/L (21-32)
[2019-09-19 06:09] LABS: BILIRUBIN,TOTAL 0.3 MG/DL (0.1-1.0)
[2019-09-19 06:10] LABS: ALKALINE PHOSPHATASE 46 U/L (40-136); GFR ESTIMATED > 60
[2019-09-19 06:11] LABS: BUN/CREATININE RATIO 20
[2019-09-19 06:13] LABS: ALANINE AMINOTRANSFERASE 10 U/L (0-55)
--- NOTE | 2019-09-19 06:17 | NUR ---
Patient had second urine void this morning. Patient voided small amount of dark, concentrated urine. Patient bladder scanned and scan showed estimated 83 ml. Patient encouraged to drink more water.
[2019-09-19] MEDS ORDERED: IRON SUCROSE 200 MG/10 ML (VENOFER) VIAL IV SCH (09:00)
--- NOTE | 2019-09-19 10:16 | PM&R Progress Note ---
Subjective HPI/CC On Admission Date Seen by Provider: Sep 19, 2019 Time Seen by Provider: 10:30 Subjective/Events-last exam No bowel movement so laxatives will be given Urinary output good Fluid restriction noted Dr. Thomas will change the dressing today Phantom pain continues on the right stump but overall she is doing much better No falls Ready to participate Dementia is an issue and could preclude returning home, may need a fci. Checked meds and labs Conferred with RN Reviewed therapy notes Review of Systems General: Fatigue Musculoskeletal: leg pain Neurological: Confusion Objective Exam Vital Signs Vital Signs Date Time Temp Pulse Resp B/P (MAP) Pulse Ox O2 Delivery O2 Flow Rate FiO2 09/19/19 16:00 36.9 77 14 101/57 (72) 100 Room Air Capillary Refill : Less Than 3 Seconds General Appearance: WD/WN, Anxious, Chronically ill, Mild Distress (due to pain right leg amputation site) HEENT: PERRL/EOMI, Normal ENT Inspection, Pharynx Normal Neck: Full Range of Motion, Normal Inspection, Non Tender, Supple, Carotid Bruit Respiratory: Chest Non Tender, Lungs Clear, No Accessory Muscle Use, No Respiratory Distress, Decreased Breath Sounds Cardiovascular: Regular Rate, Rhythm, No Edema, No Gallop, No JVD, No Murmur, Normal Peripheral Pulses Gastrointestinal: Normal Bowel Sounds, No Organomegaly, No Pulsatile Mass, Non Tender, Soft Back: Normal Inspection, No CVA Tenderness, No Vertebral Tenderness Extremity: Normal Capillary Refill, Normal Inspection, Normal Range of Motion, Non Tender, No Calf Tenderness, No Pedal Edema, Other (right leg BKA surgical site with dressing intact) Neurologic/Psychiatric: Alert, No Motor/Sensory Deficits, Normal Mood/Affect, Disoriented, Other ([place]) Skin: Normal Color, Warm/Dry Lymphatic: No Adenopathy Results/Procedures Lab Laboratory Tests 09/19/19 05:13 Patient resulted labs reviewed. FIM Transfers Therapy Code Descriptions/Definitions Functional [place] Measure: 0=Not Assessed/NA 4=Minimal Assistance 1=Total Assistance 5=Supervision or Setup 2=Maximal Assistance 6=Modified [place] 3=Moderate Assistance 7=Complete IndependenceSCALE: Activities may be completed with or without assistive devices. 1-Lkpfamtzow-dqesvmm completes the activity by him/herself with no assistance from a helper. 5-Set-up or Clean-up Assistance-helper sets up or cleans up; patient completes activity. [place] assists only prior to or following the activity. 4-Supervision or Touching Assistance-helper provides verbal cues and/or touching/steadying and/or contact guard assistance as patient completes activity. Assistance may be provided throughout the activity or intermittently. 3-Partial/Moderate Assistance-helper does LESS THAN HALF the effort. [place] lifts, holds or supports trunk or limbs, but provides less than half the effort. 2-Substantial/Maximal Assistance-helper does MORE THAN HALF the effort. [place] lifts or holds trunk or limbs and provides more than half the effort. 3-Xqhywywwk-gyztvx does ALL the effort. Patient does none of the effort to complete the activity. Or, the assistance of 2 or more helpers is required for the patient to complete the activity. If activity was not attempted, code reason: 7-Patient Refused. 9-Not Applicable-not attempted and the patient did not perform the activity before the current illness, exacerbation or injury. 10-Not Attempted due to Environmental Limitations-(lack of equipment, weather restraints, etc.). 88-Not Attempted due to Medical Conditions or Safety Concerns. 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 unsuccessful in revascularization at [facility] and [facility] Hyperkalemia Hyponatremia placed on fluid restriction and salt tablets Leukocytosis likely reactive no infection found on w/u Coronary artery disease Hyperlipidemia Hypothyroidism Seizure disorder especially when hyponatremia worsens per son Seasonal allergies GERD Depression Bladder spasms DVT prophylaxis: Lovenox Plan: IRF protocol DC Fentanyl HOT DOG VENDOR PO pain meds Dementia will slow recovery Fall risk Sundowning risk (1) S/P BKA (below knee amputation) Status: Acute (2) Leukocytosis Status: Acute (3) Hyponatremia Status: Chronic (4) Hyperkalemia Status: Resolved Resolution Date/Time: 09/17/19 @ 10:20 (5) Peripheral vascular disease (6) Intermittent atrial fibrillation Status: Acute (7) Seizure disorder (8) Hypothyroidism (9) Overactive bladder (10) Hyperlipemia (11) Hypertension (12) Dementia (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
[2019-09-19] MEDS: LEVOFLOXACIN 500 MG/100 ML IV 100 ML IV SCH (10:43)
[2019-09-19] MEDS: MUPIROCIN 2% OINT 22 GM (BACTROBAN) TUBE TOP SCH ×2 (10:44→20:38)
[2019-09-19] MEDS: polyethylene glycoL POWDER 17 GM (MIRALAX) PACK PO SCH ×2 (10:44→20:38)
[2019-09-19] MEDS: SENNA W/DOCUSATE (SENOKOT S) TABLET PO SCH (10:45)
[2019-09-19] MEDS: guaiFENesin (MUCINEX) 600 MG TAB PO SCH (10:45)
[2019-09-19] MEDS: DOCUSATE SODIUM 100 MG (COLACE) CAP PO SCH (10:45)
[2019-09-19] MEDS: LEVETIRACETAM 500 MG (KEPPRA) TAB PO SCH ×2 (10:45→20:37)
[2019-09-19] MEDS: OXYBUTYNIN (DITROPAN) 5 MG TAB PO SCH ×2 (10:46→20:37)
[2019-09-19] MEDS: PANTOPRAZOLE 40 MG (PROTONIX) TAB PO SCH ×2 (10:46→20:37)
[2019-09-19] MEDS: ASPIRIN E.C. 81 MG (ECOTRIN) TAB PO SCH (10:46)
[2019-09-19] MEDS: LORATADINE (CLARITIN) 10 MG TAB PO SCH (10:46)
[2019-09-19] MEDS: ENOXAPARIN 30 MG/0.3 ML (LOVENOX) SYR SC SCH ×2 (10:46→20:38)
[2019-09-19] MEDS: SODIUM CHLORIDE 1 GM TABLET PO SCH ×2 (10:56→20:38)
[2019-09-19] MEDS: FLUTICASONE NASAL SPRAY (FLONASE) 16 GM BTL NS SCH (10:56)
[2019-09-19] MEDS: RANOLAZINE ER 500 MG TAB (RANEXA) PO SCH ×2 (11:30→20:37)
--- NOTE | 2019-09-19 13:21 | Physical Therapy Evaluation ---
PT Evaluation-General Medical Diagnosis Admission Date Sep 18, 2019 at 11:58 Medical Diagnosis: right BKA Onset Date: Sep 18, 2019 Therapy Diagnosis Therapy Diagnosis: impaired mobility, strength, endurance, balance Height/Weight Height (Feet): 5 Height (Inches): 0.00 Weight (Pounds): 147 Weight (Ounces): 9.0 Precautions Precautions/Isolations: Fall Prevention, Standard Precautions Weight Bear Status Right Lower Extremity: Right Non Weight Bearing Left Lower Extremity: Left Full Weight Bearing Referral Physician: Vijaya Kohler DO Reason for Referral: Evaluation/Treatment Medical History Pertinent Medical History: Hypothroidism Reviewed History: Yes Social History Home: Single Level Current Living Status: Spouse Entry Into Home: Stairs Without Railing PT Steps Into Home: 1 Prior Prior Level of Function SCALE: Activities may be completed with or without assistive devices. 7-Cgqudidjua-cbrecct completes the activity by him/herself with no assistance from a helper. 5-Set-up or Clean-up Assistance-helper sets up or cleans up; patient completes activity. [place] assists only prior to or following the activity. 4-Supervision or Touching Assistance-helper provides verbal cues and/or touching/steadying and/or contact guard assistance as patient completes activity. Assistance may be provided throughout the activity or intermittently. 3-Partial/Moderate Assistance-helper does LESS THAN HALF the effort. [place] lifts, holds or supports trunk or limbs, but provides less than half the effort. 2-Substantial/Maximal Assistance-helper does MORE THAN HALF the effort. [place] lifts or holds trunk or limbs and provides more than half the effort. 6-Praigdzoe-cpdbad does ALL the effort. Patient does none of the effort to complete the activity. Or, the assistance of 2 or more helpers is required for the patient to complete the activity. If activity was not attempted, code reason: 7-Patient Refused. 9-Not Applicable-not attempted and the patient did not perform the activity before the current illness, exacerbation or injury. 10-Not Attempted due to Environmental Limitations-(lack of equipment, weather restraints, etc.). 88-Not Attempted due to Medical Conditions or Safety Concerns. Bed Mobility: 6 Transfers (B,C,W/C): 6 Gait: 6 Indoor Mobility (Ambulation): Independent Patient states she was using a rolling walker previously. PT Evaluation-Current Subjective Patient in recliner pre tx, agrees to PT, has 8/10 pain in her right leg. 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 Patient has a complaint about a nurse, referred to PT manager of global. Pt/Family Goals none stated Objective Patient Orientation: Person, Confused communication is extremely difficult due to her poor hearing and confusion ROM/Strength ROM Lower Extremities WNL Strength Lower Extremities LLE 3/5 gross Sensory Sensation Right Lower Extremit: Intact Sensation Left Lower Extremity: Intact Transfers Roll Left to Right (QC): 1 Sit to Lying (QC): 1 Lying to Sitting/Side of Bed(Q: 1 Sit to Stand (QC): 1 Chair/Nzh-mg-Wvvte Xfer(QC): 1 Toilet Transfer (QC): 1 Car Transfer (QC): 1 Patient is dependent for bed mobility and transfers, dependent for car transfers. She does not seem to be able to bear weight on her left leg. Patient needs to try to have a BM, transferred to [facility] but she cannot have one. Assist is needed to help with brief and wiping during transfer back to [facility]. Gait Does the Patient Walk?: No and Walking Goal NOT indicated Walk 10 feet (QC): 88 Walk 50 ft with 2 Turns(QC): 88 Walk 150 ft (QC): 88 Walking 10ft/uneven surface-QC: 88 Wheelchair Training Does the Pt Use a Wheelchair?: Yes Wheel 50 ft with 2 turns (QC): 2 Wheel 150 ft (QC): 2 Type of Wheelchair: Manual Stairs 1 Step (curb) (QC): 88 4 Steps (QC): 8 12 Steps (QC): 8 Balance Sitting Static: Poor Sitting Dynamic: Poor Standing Static: Poor Standing Dynamic: Poor Picking up an Object (QC): 88 Treatment Patient in bed post tx with nurse call, phone, tray, all needs met, will be wor matti with OT from this point. Assessment/Needs Patient has impaired mobility, strength, endurance, balance. Patient is dependent for most mobility. Recommend co-treating with OT/PT. Rehab Potential: Guarded PT Short Term Goals Short Term Goals Time Frame: Sep 26, 2019 Roll Left & Right: 2 Sit to lyin Lying to sitting on side of be: 2 Sit to stand: 2 Chair/ovs-qb-doyjw transfer: 2 PT Structural Steel Worker Helper Goals Chcf Goals PT Chcf Goals Time Frame: Oct 10, 2019 Roll Left & Right (QC): 3 Sit to Lying (QC): 3 Lying-Sitting on Side/Bed(QC): 3 Sit to Stand (QC): 3 Chair/Hlv-co-Ecysk Xfer(QC): 3 Toilet Transfer (QC): 3 Car Transfer (QC): 3 Does the Patient Walk: No and Walking Goal NOT indicated Walk 10 feet (QC): 88 Walk 50ft with 2 Turns (QC): 88 Walk 150 ft (QC): 88 Walking 10ft on Uneven Surface: 88 1 Step (curb) (QC): 88 4 Steps (QC): 88 12 Steps (QC): 88 Picking up an Object (QC): 88 Wheel 50 feet with 2 turns (QC: 4 Wheel 150 feet: 4 PT Plan Problem List Problem List: Activity Tolerance, Functional Strength, Safety, Balance, Gait, Transfer, Bed Mobility, ROM Treatment/Plan Treatment Plan: Continue Plan of Care Treatment Plan: Bed Mobility, Education, Functional Activity Za, Functional Strength, Group Therapy, Gait, Safety, Therapeutic Exercise, Transfers Treatment Duration: Oct 10, 2019 Frequency: At least 5 of 7 days/Wk (IRF) Estimated Hrs Per Day: 1.5 hours per day Patient and/or Family Agrees t: Yes Safety Risks/Education Patient Education: Transfer Techniques, Correct Positioning, W/C Management, Safety Issues Teaching Recipient: Patient Teaching Methods: Demonstration, Discussion Response to Teaching: Reinforcement Needed Discharge Recommendations Plan Patient will perform bed mobility and transfer training, balance and endurance training, functional strengthening, stair training, gait training, and education , to improve functional mobility and independence at home. Therapy Discharge Recommendati: Other, See Comments (NH) Time/GCodes Time In: 0900 Time Out: 929 Total Billed Treatment Time: 30 Total Billed Treatment 1 visit NICOLE 15' FA 15' MARIANN GARNETT PT Sep 19, 2019 13:21
[2019-09-19] MEDS: ONDANSETRON 4 MG/2 ML (SDV) Z0FRAN IVP PRN ×2 (13:49→20:54)
--- NOTE | 2019-09-19 14:12 | Physical Therapy Daily Note ---
PT Daily Note-Current Subjective Patient sitting EOB pre tx, agrees to PT, has unrated pain in right leg. Patient already working with OT, will be co-treating due to poor patient mobility, strength, endurance, balance, pain, the need to coordinate UE and LE during activity. Appearance Patient BTB post tx with nurse call,phone, tray, all needs met, bed alarm on. Mental Status Patient Orientation: Person, Confused Transfers SCALE: Activities may be completed with or without assistive devices. 5-Lpdxbmzguz-pbmbriq completes the activity by him/herself with no assistance from a helper. 5-Set-up or Clean-up Assistance-helper sets up or cleans up; patient completes activity. [place] assists only prior to or following the activity. 4-Supervision or Touching Assistance-helper provides verbal cues and/or touching/steadying and/or contact guard assistance as patient completes activity. Assistance may be provided throughout the activity or intermittently. 3-Partial/Moderate Assistance-helper does LESS THAN HALF the effort. [place] lifts, holds or supports trunk or limbs, but provides less than half the effort. 2-Substantial/Maximal Assistance-helper does MORE THAN HALF the effort. [place] lifts or holds trunk or limbs and provides more than half the effort. 8-Qyeemqoha-ihzhvd does ALL the effort. Patient does none of the effort to complete the activity. Or, the assistance of 2 or more helpers is required for the patient to complete the activity. If activity was not attempted, code reason: 7-Patient Refused. 9-Not Applicable-not attempted and the patient did not perform the activity before the current illness, exacerbation or injury. 10-Not Attempted due to Environmental Limitations-(lack of equipment, weather restraints, etc.). 88-Not Attempted due to Medical Conditions or Safety Concerns. Roll Left & Right (QC): 1 Sit to Lying (QC): 1 Sit to Stand (QC): 1 Chair/Ubu-sj-Vsnil Xfer(QC): 1 stand pivot transfer to WC Weight Bearing Right Lower Extremity: Right Non Weight Bearing Left Lower Extremity: Left Full Weight Bearing Wheelchair Training Does the Pt Use a Wheelchair?: Yes Wheel 50 ft with 2 turns (QC): 2 Wheel 150 ft (QC): 2 Type of Wheelchair: Manual 150', assist patient propelling and turning WC, she pushes very little, inches at a time Exercises Seated Therapy Exercises: Ankle pumps (LLE), Long arc quads (LLE), Hip flexion, Hip abd/add Seated Reps: 10 Treatments LE exercise, transfers, WC mobility. Patient transferred back to bed from (dependent). PT performed transfers, WC mobility, LE exercise, OT assist with transfer and general mobility and UE positioning during activity, safety cues. Assessment Current Status: Poor Progress dependent for all mobility PT Short Term Goals Short Term Goals Time Frame: Sep 26, 2019 Roll Left & Right: 2 Sit to lyin Lying to sitting on side of be: 2 Sit to stand: 2 Chair/qpc-zq-jpghy transfer: 2 PT Assisted Goals Web Ui Software Engineer Goals PT Web Ui Software Engineer Goals Time Frame: Oct 10, 2019 Roll Left & Right (QC): 3 Sit to Lying (QC): 3 Lying-Sitting on Side/Bed(QC): 3 Sit to Stand (QC): 3 Chair/Ulk-zm-Sulis Xfer(QC): 3 Toilet Transfer (QC): 3 Car Transfer (QC): 3 Does the Patient Walk: No and Walking Goal NOT indicated Walk 10 feet (QC): 88 Walk 50ft with 2 Turns (QC): 88 Walk 150 ft (QC): 88 Walking 10ft on Uneven Surface: 88 1 Step (curb) (QC): 88 4 Steps (QC): 88 12 Steps (QC): 88 Picking up an Object (QC): 88 Wheel 50 feet with 2 turns (QC: 4 Wheel 150 feet: 4 PT Plan Problem List Problem List: Activity Tolerance, Functional Strength, Safety, Balance, Gait, Transfer, Bed Mobility, ROM Treatment/Plan Treatment Plan: Continue Plan of Care Treatment Plan: Bed Mobility, Education, Functional Activity Za, Functional Strength, Group Therapy, Gait, Safety, Therapeutic Exercise, Transfers Treatment Duration: Oct 10, 2019 Frequency: At least 5 of 7 days/Wk (IRF) Estimated Hrs Per Day: 1.5 hours per day Patient and/or Family Agrees t: Yes Safety Risks/Education Patient Education: Transfer Techniques, Correct Positioning, W/C Management, Safety Issues Teaching Recipient: Patient Teaching Methods: Demonstration, Discussion Response to Teaching: Reinforcement Needed Time/GCodes Time In: 1120 Time Out: 1200 Total Billed Treatment Time: 40 Total Billed Treatment 1 visit FA 40' MARIANN GARNETT PT Sep 19, 2019 14:12
--- NOTE | 2019-09-19 14:13 | Occupational Therapy Eval ---
OT Evaluation-General/PLF Medical Diagnosis Admission Date Sep 18, 2019 at 11:58 Medical Diagnosis: right BKA Onset Date: Sep 19, 2019 Therapy Diagnosis Therapy Diagnosis: Weakness, Decreased ADL skills Height/Weight Height (Feet): 5 Height (Inches): 0.00 Weight (Pounds): 147 Weight (Ounces): 9.0 Precautions Precautions/Isolations: Fall Prevention, Standard Precautions Referral Physician: Vijaya Kohler DO Referral Reason: Activity Tolerance, Self Care, Evaluation/Treatment, Strengthening/ROM Medical History Pertinent Medical History: Dementia, HTN, Hypothroidism Additional Medical History Cataract, anxiety Current History Pt. lives with spouse who also has dementia. 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 Underwent right BKA. Reviewed History: Yes Social History Home: Single Level Current Living Status: Spouse Entry Into Home: Stairs Without Railing Steps Into Home: 1 ADL-Prior Level of Function SCALE: Activities may be completed with or without assistive devices. 3-Afzdcjlgfe-ourwiku completes the activity by him/herself with no assistance from a helper. 5-Set-up or Clean-up Assistance-helper sets up or cleans up; patient completes activity. [place] assists only prior to or following the activity. 4-Supervision or Touching Assistance-helper provides verbal cues and/or touching/steadying and/or contact guard assistance as patient completes activi ty. Assistance may be provided throughout the activity or intermittently. 3-Partial/Moderate Assistance-helper does LESS THAN HALF the effort. [place] lifts, holds or supports trunk or limbs, but provides less than half the effort. 2-Substantial/Maximal Assistance-helper does MORE THAN HALF the effort. [place] lifts or holds trunk or limbs and provides more than half the effort. 5-Eqdtooiox-karkkn does ALL the effort. Patient does none of the effort to complete the activity. Or, the assistance of 2 or more helpers is required for the patient to complete the activity. If activity was not attempted, code reason: 7-Patient Refused. 9-Not Applicable-not attempted and the patient did not perform the activity before the current illness, exacerbation or injury. 10-Not Attempted due to Environmental Limitations-(lack of equipment, weather restraints, etc.). 88-Not Attempted due to Medical Conditions or Safety Concerns. ADL PLOF Comments Pt. is unable to verbalize prior level. It is known from PT that pt. has son that lives close. Pt. is very [place], and most questions have to be written down for her. Self Care: Unknown Functional Cognition: Unknown DME/Equipment Comments Pt. is able to state that she used a walker for mobility. OT Current Status Subjective Pt. does not verbalize pain level, but verbalizes pain "all over." Pt. has been given pain medication. Appearance Pt. in wheelchair in therapy gym with PT when OT entered. Mental Status/Objective Patient Orientation: Unable to Assess Pt. very [place]. At times, is able to answer questions appropriately. At other times, becomes tearful and will talk without clarity. Full cognitive component not known at this time. Current Glasses/Contacts: Yes Hearing Aids: Yes Upper Extremity ROM Pt. demonstrates limited AROM in bilateral shoulders. Approximately 45-60 degrees. Pt. verbalizes that she has had Rotator cuff repairs. ADL-Treatment Eating (QC): 10 Oral Hygiene (QC): 10 Shower/Bathe Self (QC): 1 (pt. sat on side of bed with full support for upright posture. OT assisted pt. with bathing while sitting in front. Pt. able to bathe arms and face, chest. However, required max assist to stand while another cleansed snow area. Left LE cleansed by OT.) Upper Body Dressing (QC): 10 (Street clothing not available.) Lower Body Dressing (QC): 1 (Dependent for brief.) On/Off Footwear (QC): 1 (Left slipper sock.) Toileting Hygiene (QC): 1 (Pt. dependent for snow cleanse. Pt. verbalizes that she is unsure if she is continent or not.) Other Treatments Pt. seen by OT in two treatment session. Pt. seen first for brief evaluation in gym. Stood x 3 with PT assistance (PT no charge), with max x 2 at parallel bar. Pt. able to tolerate approximately 1 minute in stance each time. OT came back at later time and completed full evaluation. Tolerated sitting on side of bed during ADLs. PT assisted and worked on balance/mobility, while OT facilitated ADL skills. Transferred to wheelchair with max assist and worked on self propu lsion down mazariegos. Pt. had difficulty with this as she states that her shoulders don't "work" well due to RCR and arthritis/fibromyalgia. Went back to room and transferred to bed with max x 2. All needs met. Education OT Patient Education: Correct positioning, Modified ADL techniques, Progress toward Goal/Update tx plan, Purpose of tx/functional activities, Reviewed precautions, Rehab process, Transfer techniques Teaching Recipient: Patient Teaching Methods: Demonstration, Discussion Response to Teaching: Verbalize Understanding, Return Demonstration, Reinforcement Needed OT Short Term Goals Short Term Goals Time Frame: Sep 26, 2019 Eatin (Min assist) Oral hygiene: 3 (Min assist) Toileting hygiene: 2 Shower/bathe self: 3 (Mod assist) Upper body dressin (Mod) Lower body dressin Putting on/taking off footwear: 2 OT Snf Goals Break Off Worker Goals Time Frame: Oct 10, 2019 Eating (QC): 4 Oral Hygiene (QC): 4 Toileting Hygiene (QC): 3 (Min) Shower/Bathe Self (QC): 3 (min) Upper Body Dressing (QC): 3 (Min) Lower Body Dressing (QC): 3 (Min) On/Off Footwear (QC): 3 (MIn) Additional Goals: 1-Demonstrate ADL Tasks, 2-Verbalize Understanding, 3- ImproveStrength/Za 1=Demonstrate adherence to instructed precautions during ADL tasks. 2=Patient will verbalize/demonstrate understanding of assistive devices/modifications for ADL. 3=Patient will improve strength/tolerance for activity to enable patient to perform ADL's. OT Education/Plan Problem List/Assessment Assessment: Decreased Activ Tolerance, Decreased Safety Aware, Decreased UE Strength, Dependent Transfers, Impaired Bed Mobility, Impaired Cognition, Impaired Funct Balance, Impaired I ADL's, Impaired Self-Care Skills, Restricted Funct UE ROM Discharge Recommendations Plan/Recommendations: Continue POC Therapy Discharge Recommendati: 24 Hour Supervision Comment Discharge location and equipment to be determined. Treatment Plan/Plan of Care Treatment,Training & Education: Yes Patient would benefit from OT for education, treatment and training to promote independence in ADL's, mobility, safety and/or upper extremity function for ADL's. Plan of Care: ADL Retraining, Caregiver Training, Functional Mobility, Group Exercise/Act as Ind, UE Funct Exercise/Act Treatment Duration: Oct 10, 2019 Frequency: At least 5 of 7 days/Wk (IRF) Estimated Hrs Per Day: 1.5 hours per day Agreement: Yes Rehab Potential: Guarded Time/GCodes Start Time: 09:30 Stop Time: 12:05 Total Time Billed (hr/min): 75 Billed Treatment Time 0324-6307 1, EVH x 10minutes 3520-1534 ADL x 45minutes, Ex x 20minutes (Partial co-treatment with PT. Please see above note for designated roles.) TERESE REYNOSO OT Sep 19, 2019 14:13
--- NOTE | 2019-09-19 14:24 | ST Cognitive Linguistic Eval ---
Speech Evaluation-General Medical Diagnosis right BKA Onset Date: Sep 19, 2019 Therapy Diagnosis Therapy Diagnosis: Cognitive-communication Referral Referring Physician: Dr. Kohler Medical History Pertinent Medical History: Hypothroidism Reviewed History: Yes Social History Current Living Status: Spouse Speech PLF-Current Status Prior Level of Function Patient lived in her home with her . Subjective Patient noted to be very [place], however she was cooperative with the cognitive assessment. Language Eval: Auditory Comprehends Simple Yes/No Ques: Functional Indent/Objects Multiple Barrios: Functional Ident/Pics in Multiple Barrios: Functional Follows 1-Step Commands: Functional Follows Complex Directions: Mild Follows General Conversations: Functional Language Eval: Verbal Language Completes Spontaneous Greeting: Functional Produces Auto, Serial Info: Functional Imitates Simple Words/Phrases: Functional Word Finding: Mild Requests Basic Needs: Functional States Basic Personal Info: Functional Expresses Complex Ideas: Mild Objective Cognitive Domain Attention: WNL Memory: Mild Problem Solving: Mild Executive Functions: Mild Visuospatial Skills: WNL Composite Severity Rating: Mild Clock Drawing Severity Rating: Moderate Objective Formal/Standardized Tests [facility] Mental Status ([facility]) Results 21/30, Mild Neurocognitive Disorder Oral Motor/Speech Production Within Normal Limits Impression Patient is a pleasant 84 y/o female who was admitted to the ARU s/p BKA. Patient was noted to be very [place] even with hearing aids in place. Patient was given the SLUMS at bedside with a score of 21/30 obtained. This score is within a MNCD. Patient will receive skilled ST services for improving safety awareness and cognitive function for a safer return home. Speech Patient Assess Expression of Ideas/Wants: Exhibits (3) Understanding Verbal Content: Usually Understands (3) Brief Interview-Mental Status: Yes Repetition of Three Words: Two (2) Temporal Orientation: Year: Correct (3) Temporal Orientation: Month: Accurate within 5 days(2) Temporal Orientation: Day: Correct (1) Recall : Wear to say "Sock": Yes,after cueing (1) Recall : Color: No, could not recall (0) Recall : Bed: No, could not recall (0) Memory/Recall Ability: Current season, That he or she is in a hsp/hsp unit Speech Short Term Goals Short Term Goals Short Term Goals 1) Patient will complete memory tasks related to her daily needs at 80% with m inimal cues. 2) Patient will complete safety awareness tasks related to her daily needs at 80% with minimal cues. 3) Patient will complete problem solving tasks related to her daily needs at 80% with minimal cues. Speech Hazardous Materials Tanker Driver Goals Hazardous Materials Tanker Driver Goals Patient will improve cognitive-communication necessary for safety and daily living tasks with minimal assist. Speech-Plan Patient/Family Goals Patient/Family Goals: Patient plans on returning to her home where she lives with her . Treatment Plan Speech Therapy Treatment Plan: Continue Plan of Care Treatment Duration: Sep 30, 2019 Frequency: 5 times per week Estimated Hrs Per Day: .5 hour per day Rehab Potential: Guarded Barriers to Learning: Patient's age, [place] and adjusting to the leg amputation. Pt/Family Agrees to Plan: Yes Safety Risks/Education Teaching Recipient: Patient Teaching Methods: Discussion Response to Teaching: Verbalize Understanding Education Topics Provided: Safety within her room and communicaiton of wants/needs Time Speech Therapy Time In: 10:30 Speech Therapy Time Out: 11:00 Total Billed Time: 30 Billed Treatment Time 1, JUAN ALBERTO Robert Sep 19, 2019 14:24
--- NOTE | 2019-09-19 14:34 | Occupational Ther Daily Note ---
OT Current Status-Daily Note Subjective Pt. reports pain in chest and right LE, but does not report pain level. Pt. is crying off and on, nursing in room. Nursing gives pain medication. Appearance Pt. in bed when OT entered room. Mental Status/Objective Patient Orientation: Unable to Assess ADL-Treatment Therapy Code Descriptions/Definitions Functional [place] Measure: 0=Not Assessed/NA 4=Minimal Assistance 1=Total Assistance 5=Supervision or Setup 2=Maximal Assistance 6=Modified [place] 3=Moderate Assistance 7=Complete IndependenceSCALE: Activities may be completed with or without assistive devices. 7-Feaxmimftc-xlstdzv completes the activity by him/herself with no assistance from a helper. 5-Set-up or Clean-up Assistance-helper sets up or cleans up; patient completes activity. [place] assists only prior to or following the activity. 4-Supervision or Touching Assistance-helper provides verbal cues and/or touching/steadying and/or contact guard assistance as patient completes activity. Assistance may be provided throughout the activity or intermittently. 3-Partial/Moderate Assistance-helper does LESS THAN HALF the effort. [place] lifts, holds or supports trunk or limbs, but provides less than half the effort. 2-Substantial/Maximal Assistance-helper does MORE THAN HALF the effort. [place] lifts or holds trunk or limbs and provides more than half the effort. 0-Uycpgyqsf-dkguwz does ALL the effort. Patient does none of the effort to complete the activity. Or, the assistance of 2 or more helpers is required for the patient to complete the activity. If activity was not attempted, code reason: 7-Patient Refused. 9-Not Applicable-not attempted and the patient did not perform the activity before the current illness, exacerbation or injury. 10-Not Attempted due to Environmental Limitations-(lack of equipment, weather restraints, etc.). 88-Not Attempted due to Medical Conditions or Safety Concerns. Other Treatment Pt. verbalizes pain and upset stomach. Pt. has emesis basin in front of her. OT assists her with repositioning for comfort. Pt. unable to move right LE, but requests for OT to do so. OT repositions right LE into abduction. Nursing assessing pt. and BP taken. It is 134/68. 02 sats at 98%. Pt. agrees to transfer to side for comfort. Pt. able to reach toward bedrail on left, and OT assisted with full rolling. Max assist overall and pillows positioned for comfort and pressure relief. All needs met. Education OT Patient Education: Correct positioning, Purpose of tx/functional activities, Reviewed precautions, Rehab process, Transfer techniques Teaching Recipient: Patient Teaching Methods: Demonstration, Discussion Response to Teaching: Reinforcement Needed OT Short Term Goals Short Term Goals Time Frame: Sep 26, 2019 Eatin (Min assist) Oral hygiene: 3 (Min assist) Toileting hygiene: 2 Shower/bathe self: 3 (Mod assist) Upper body dressin (Mod) Lower body dressin Putting on/taking off footwear: 2 OT Cloth Classer Goals Cloth Classer Goals Time Frame: Oct 10, 2019 Eating (QC): 4 Oral Hygiene (QC): 4 Toileting Hygiene (QC): 3 (Min) Shower/Bathe Self (QC): 3 (min) Upper Body Dressing (QC): 3 (Min) Lower Body Dressing (QC): 3 (Min) On/Off Footwear (QC): 3 (MIn) Additional Goals: 1-Demonstrate ADL Tasks, 2-Verbalize Understanding, 3- ImproveStrength/Za 1=Demonstrate adherence to instructed precautions during ADL tasks. 2=Patient will verbalize/demonstrate understanding of assistive de vices/modifications for ADL. 3=Patient will improve strength/tolerance for activity to enable patient to perform ADL's. OT Education/Plan Problem List/Assessment Assessment: Decreased Activ Tolerance, Decreased UE Strength, Dependent Transfers, Impaired Bed Mobility, Impaired Cognition, Impaired Funct Balance, Impaired I ADL's, Impaired Self-Care Skills Discharge Recommendations Plan/Recommendations: Continue POC Therapy Discharge Recommendati: 24 Hour Supervision Treatment Plan/Plan of Care Treatment,Training & Education: Yes Patient would benefit from OT for education, treatment and training to promote independence in ADL's, mobility, safety and/or upper extremity function for ADL's. Plan of Care: ADL Retraining, Caregiver Training, Functional Mobility, Group Exercise/Act as Ind, UE Funct Exercise/Act Treatment Duration: Oct 10, 2019 Frequency: At least 5 of 7 days/Wk (IRF) Estimated Hrs Per Day: 1.5 hours per day Agreement: Yes Rehab Potential: Guarded Time/GCodes Start Time: 13:35 Stop Time: 13:50 Total Time Billed (hr/min): 15 Billed Treatment Time 1, TERESE FOSTER OT Sep 19, 2019 14:34
--- NOTE | 2019-09-19 14:51 | Physical Therapy Daily Note ---
PT Daily Note-Current Subjective Patient in bed pre tx, agrees reluctantly to PT, has unrated pain in right leg. Agrees to exercises in bed, doesn't want to get out of bed at this time. Appearance Patient in bed post tx with nurse call,phone, tray, all needs met, bed alarm on. Mental Status Patient Orientation: Person, Confused Transfers SCALE: Activities may be completed with or without assistive devices. 6-Pvxzqfrqdr-ebgcfqc completes the activity by him/herself with no assistance from a helper. 5-Set-up or Clean-up Assistance-helper sets up or cleans up; patient completes activity. [place] assists only prior to or following the activity. 4-Supervision or Touching Assistance-helper provides verbal cues and/or touching/steadying and/or contact guard assistance as patient completes activity. Assistance may be provided throughout the activity or intermittently. 3-Partial/Moderate Assistance-helper does LESS THAN HALF the effort. [place] lifts, holds or supports trunk or limbs, but provides less than half the effort. 2-Substantial/Maximal Assistance-helper does MORE THAN HALF the effort. [place] lifts or holds trunk or limbs and provides more than half the effort. 9-Whmrfmkci-dfblzf does ALL the effort. Patient does none of the effort to complete the activity. Or, the assistance of 2 or more helpers is required for the patient to complete the activity. If activity was not attempted, code reason: 7-Patient Refused. 9-Not Applicable-not attempted and the patient did not perform the activity before the current illness, exacerbation or injury. 10-Not Attempted due to Environmental Limitations-(lack of equipment, weather restraints, etc.). 88-Not Attempted due to Medical Conditions or Safety Concerns. Weight Bearing Right Lower Extremity: Right Non Weight Bearing Left Lower Extremity: Left Full Weight Bearing Exercises LLE AAROM (AP, hip abd/add, SLR, SAQ), RLE AROM (SLR, hip abd/add) all x15 Treatments BLE exercises Assessment Current Status: Poor Progress patient tolerated exercises poorly, constant cues for direction, communication is difficult PT Short Term Goals Short Term Goals Time Frame: Sep 26, 2019 Roll Left & Right: 2 Sit to lyin Lying to sitting on side of be: 2 Sit to stand: 2 Chair/zxm-zi-utgah transfer: 2 PT Prison Goals Corral Boss Goals PT Corral Boss Goals Time Frame: Oct 10, 2019 Roll Left & Right (QC): 3 Sit to Lying (QC): 3 Lying-Sitting on Side/Bed(QC): 3 Sit to Stand (QC): 3 Chair/Bak-gh-Crprt Xfer(QC): 3 Toilet Transfer (QC): 3 Car Transfer (QC): 3 Does the Patient Walk: No and Walking Goal NOT indicated Walk 10 feet (QC): 88 Walk 50ft with 2 Turns (QC): 88 Walk 150 ft (QC): 88 Walking 10ft on Uneven Surface: 88 1 Step (curb) (QC): 88 4 Steps (QC): 88 12 Steps (QC): 88 Picking up an Object (QC): 88 Wheel 50 feet with 2 turns (QC: 4 Wheel 150 feet: 4 PT Plan Problem List Problem List: Activity Tolerance, Functional Strength, Safety, Balance, Gait, Transfer, Bed Mobility, ROM Treatment/Plan Treatment Plan: Continue Plan of Care Treatment Plan: Bed Mobility, Education, Functional Activity Za, Functional Strength, Group Therapy, Gait, Safety, Therapeutic Exercise, Transfers Treatment Duration: Oct 10, 2019 Frequency: At least 5 of 7 days/Wk (IRF) Estimated Hrs Per Day: 1.5 hours per day Patient and/or Family Agrees t: Yes Safety Risks/Education Patient Education: Correct Positioning, Safety Issues Teaching Recipient: Patient Teaching Methods: Demonstration, Discussion Response to Teaching: Reinforcement Needed Time/GCodes Time In: 1440 Time Out: 1450 Total Billed Treatment Time: 10 Total Billed Treatment 1 visit EX MARIANN NUNEZ PT Sep 19, 2019 14:51
--- NOTE | 2019-09-19 15:13 | NUR ---
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 Other comorbidities are, in part, peripheral vascular disease, intermittent atrial fibrillation, seizure disorder, overactive bladder, HTN, dementia. Patient resides at home with her spouse, Yoni Olvera. Patient is 84 and states her spouse is 93, not confirmed. They reside in [place] and their son does at well. According to a past stay, they have 3 children. Medhat and Johanna are listed as agents on her DPOA-HC. Will contact family for more detailed description of patient level of functioning before surgery. Patient was documented as hard of hearing, contract technical writer communicated well with just a normal voice tone. PCP: Dr. Mery Lea MD, [place] and [facility]. PHARMACY: [facility], [place] INSURANCE: Medicare, [email or web address], [employer] DME: Patient states they have 3 wheelchairs at home. Will interview family members to confirm assistive devices available. BARRIERS TO DISCHARGE PLANNING: Age 84, post op for right BKA. Strength, stamina, patient ability to ambulate safely with FWW and/or wheelchair. Home accommodations re possible wheelchair use, persons available to monitor/assist. Cognition impairment or dementia. CONTACTS: Carl Olvera, Son/DPOA-HC [id number], [place] [address] Johanna Daigle, Daughter/DPOA-HC [id number] [facility] [id number] Patient was informed of the purpose and process of the weekly patient care conference and that her first review would be Thursday, September 21, 2019. Animal Surgeon will update family/DPOA's by phone.
[2019-09-19] MEDS: ALPRAZolam 0.25 MG (XANAX) TAB PO PRN (15:41)
[2019-09-19 16:00] VITALS: BP_SYST 101; BP_SYST 130; BP_DIAS 57; BP_DIAS 65
--- NOTE | 2019-09-19 19:40 | NUR ---
PTS SON KEIRA WOULD LIKE US TO HAVE THE [facility] NUMBER IN CASE WE NEED TO CONTACT THEM IN REGARDS TO PHYSICAL THERAPY.
[2019-09-19] MEDS: SERTRALINE 50 MG (ZOLOFT) TABLET PO SCH (20:37)
[2019-09-19] MEDS: SIMvastatin 20 MG (ZOCOR) TAB PO SCH (20:37)
--- NOTE | 2019-09-19 21:30 | Individualized Plan of Care ---
Individualized Plan of Care Rehab Nursing IPOC Order Admission Date Sep 18, 2019 at 11:58 Current Orders Orders Admission Order(Inpt,Obs,Sdc) (09/17/19 19:28) Vital Signs: Per Unit Policy ( 08,16,00 (09/17/19 19:28) Conrado Jimenez 09,21 (09/17/19 19:28) Sequential Compression Device Q4H (09/17/19 19:28) Sugar Refiner-Inpt Rehab Con (09/17/19 19:28) Rehab Nursing Orders-Ipoc (09/17/19 19:28) Physical Therapy Rehab Orders (09/17/19 19:28) Occupational Therapy Rehab Ord (09/17/19 19:28) Speech Therapy Rehab Orders (09/17/19 19:28) Comprehensive Metabolic Panel (09/19/19 06:00) General/Regular (09/18/19 Breakfast) Intake & Output 06,14,22 (09/17/19 19:28) Precautions (Aru) (09/17/19 19:28) Weekly Weight WEEK (09/17/19 19:28) Rehab-Intensity Of Therapy (09/17/19 19:28) Initiate Admission Nursing Pro .admission (09/17/19 19:28) Alprazolam Tablet (Xanax Tablet) (09/17/19 19:30) Calcium Carbonate Chew Tablet (Antacid C (09/17/19 19:30) Diphenhydramine Tablet (Benadryl Tablet) (09/17/19 19:30) Docusate Sodium Capsule (Colace Capsule) (09/17/19 19:30) Lactulose Oral Solution (Enulose Oral So (09/17/19 19:30) Na Phos/Na Biphos Enema (Fleet Enema Regis (09/17/19 19:30) Guaifenesin/Codeine Syrup (Robitussin Ac (09/17/19 19:30) Loperamide Tablet (Imodium Tablet) (09/17/19 19:30) Melatonin Tablet (Melatonin Tablet) (09/17/19 19:30) Polyethylene Glycol Powder Pkt (Miralax (09/17/19 21:00) Ondansetron Oral Dissolve Tab (Zofran (09/17/19 19:30) Initiate Admission Nursing Pro .admission (09/17/19 19:28) Cbc With Automated Diff (09/19/19 06:00) Admission Arrival Bed Request (09/18/19 11:58) Ambulate 08,,20 (09/18/19 12:20) Sequential Compression Device Q4H (09/18/19 12:20) Dvt/Vte Risk - Notifiy Physici Q4H (09/18/19 12:20) Fentanyl Injection (Sublimaze Injection (09/18/19 13:00) Incentive Spirometry (Nursing) Q2H (09/18/19 12:58) Oxygen-Administer 07,19 (09/18/19 12:58) Pulse Oximetry Order (09/18/19 12:58) Weight Bearing Status (09/18/19 12:58) Aspirin Enteric Coated Tablet (Ecotrin T (09/19/19 09:00) Bisacodyl Suppository (Dulcolax Supposit (09/18/19 13:00) Docusate Sodium Capsule (Colace Capsule) (09/19/19 09:00) Enoxaparin Injection (Lovenox Injection) (09/18/19 21:00) Fluticasone Nasal Glennie (Flonase Nasal S (09/19/19 09:00) Levetiracetam Tablet (Keppra Tablet) (09/18/19 21:00) Levofloxacin 500 Mg/100 Ml Iv (Levaquin (09/19/19 09:00) Levothyroxine Tablet (Synthroid Tablet) (09/19/19 06:30) Loratadine Tablet (Claritin Tablet) (09/19/19 09:00) Mupirocin Ointment (Bactroban Ointment (09/18/19 21:00) Ondansetron Injection (Zofran Injectio (09/18/19 13:00) Oxybutynin Tablet (Ditropan Tablet) (09/18/19 21:00) Pantoprazole Tablet (Protonix Tablet) (09/18/19 21:00) Ranolazine Er Tablet (Ranexa Er Tablet) (09/18/19 21:00) Senna S Tablet (Senokot S Tablet) (09/19/19 09:00) Sertraline Tablet (Zoloft Tablet) (09/18/19 21:00) Simvastatin Tablet (Zocor Tablet) (09/18/19 21:00) Sodium Chloride Tablet (Sodium Chloride (09/18/19 21:00) Diphenhydramine Injection (Benadryl Inje (09/18/19 13:00) Guaifenesin Tablet (Mucinex Tablet) (09/19/19 09:00) Hydroxyzine Oral (Atarax Tablet) (09/18/19 13:00) Oxycodone 5 Mg/5ml Oral Soln (Roxicodone (09/18/19 13:00) Incentive Spirometry Initial (09/18/19 12:58) Incentive Spirometry (Nursing) Q2H (09/18/19 12:58) Promethazine Injection (Phenergan Injec (09/18/19 13:00) Prochlorperazine Suppository (Compazine (09/18/19 13:00) Acetaminophen Tablet/Caplet (Tylenol T (09/17/19 19:30) Request Ot Evaluate & Treat (09/18/19 13:08) Code/Resuscitation (09/18/19 15:28) Consult General Surgery (09/18/19 18:04) Thyroid Stimulating Hormone (09/19/19 06:00) Iron Test (Fe) (09/19/19 06:00) Iron Sucrose Injection (Venofer Injectio (09/19/19 09:00) Fluid Restriction (09/19/19 08:23) Dys3 Advanced (09/19/19 Lunch) Patient Visit (09/19/19 ) Speech Sound Lang Comp (09/19/19 ) Patient Visit (09/19/19 ) Pt Eval Moderate Complexity (09/19/19 ) Functional Activities, Ea 15 (09/19/19 ) Exercise Therap, Ea 15 Min (09/19/19 ) Oxycodone 5 Mg/5ml Oral Soln (Roxicodone (09/20/19 12:30) Cbc With Automated Diff (09/20/19 11:38) Comprehensive Metabolic Panel (09/20/19 11:38) Lactic Acid Analyzer (09/20/19 11:38) Procalcitonin (Pct) (09/20/19 11:38) Patient Visit (09/20/19 ) Treat. Speech/Lang/Voice (09/20/19 ) Patient Visit (09/20/19 ) Exercise Therap, Ea 15 Min (09/20/19 ) Patient Visit (09/20/19 ) Functional Activities, Ea 15 (09/20/19 ) Dressing Order (Intervention) DAILY (09/20/19 15:46) Rehab Nursing Orders: Ongoing Assess. of Cognitive Status, Ongoing Assess. of Function Status, Bladder Management, Bladder Scan, Bladder Training, Bowel Management, Bowel Training, Disease Management & Educaiton, DVT Prophylaxis, Fall Prevention, Fluid/Electrolyte/Nutrition Mgmt, Infection Prevention, Medication Management & Education, Management of Risks & Complications, Management of Skin Intergrity, Nutrition Management, Pain Management, Patient/Family Support, Safety Management, Swallow Precautions Intensity of Therapy to be met Patient to be seen: Min.3h per day/5 of 7d PT IPOC Problem List: Activity Tolerance, Functional Strength, Safety, Balance, Gait, Transfer, Bed Mobility, ROM Treatment Plan: Continue Plan of Care Bed Mobility, Education, Functional Activity Za, Functional Strength, Group Therapy, Gait, Safety, Therapeutic Exercise, Transfers Treatment Duration: Oct 10, 2019 Frequency: At least 5 of 7 days/Wk (IRF) Estimated Hrs Per Day: 1.5 hours per day OT IPOC Problems: Decreased Activ Tolerance, Decreased UE Strength, Dependent Transfers, Impaired Bed Mobility, Impaired Cognition, Impaired Funct Balance, Impaired I ADL's, Impaired Self-Care Skills OT Treatment, Training and Edu: Yes Plan of Care: ADL Retraining, Caregiver Training, Functional Mobility, Group Exercise/Act as Ind, UE Funct Exercise/Act Treatment Duration: Oct 10, 2019 Frequency: At least 5 of 7 days/Wk (IRF) Estimated Hrs Per Day: 1.[address] IPOC Speech Therapy Treatment Plan: Continue Plan of Care Treatment Duration: Sep 30, 2019 Frequency: 5 times per week Estimated Hrs Per Day: .5 hour per day Sugar Refiner/Case Mgmt Sugar Refiner/Case Managemen: Discharge Planning Dietitian/Retail Link Analyst Dietitian/Retail Link Analyst to monitor nutritional status and make changes and/or recommendations as needed and work with speech pathology on dietary upgrades as the occur. Physician IPOC Medical Issues being managed closely and that require the 24 hour availability of a physician: Advanced age and recent right BKA and dementia will require close monitoring for decompensation risk Medical Issues: Bowel/Bladder Function, DVT Prophylaxis, Falls Precautions, Fluid/Electrolyte/Nutrition Balance, Infection Protection, Pain Management Brief Synthesis of Preadmission Screen, Post-Admission Evaluation, and Therapy Evaluations: ST will try to improve cognition and PT OT will try to help improve ADL independence and transfers between bed and wheelchair. Medical Prognosis: Guarded Anticipated Length of Stay: 7 days TESS MEYER DO Sep 19, 2019 21:30
[2019-09-20] MEDS: oxyCODONE 5 MG/5 ML ORAL SOLN (roxiCODONE) 5 ML UDC PO SCH ×3 (01:26→08:33)
[2019-09-20 05:29] VITALS: BP 117/67
[2019-09-20] MEDS: LEVOTHYROXINE 50 MCG (LEVOTHROID) TAB PO SCH (05:53)
[2019-09-20] MEDS: RANOLAZINE ER 500 MG TAB (RANEXA) PO SCH ×2 (08:30→20:28)
[2019-09-20] MEDS: ASPIRIN E.C. 81 MG (ECOTRIN) TAB PO SCH (08:30)
[2019-09-20] MEDS: OXYBUTYNIN (DITROPAN) 5 MG TAB PO SCH ×2 (08:31→20:28)
[2019-09-20] MEDS: SENNA W/DOCUSATE (SENOKOT S) TABLET PO SCH (08:31)
[2019-09-20] MEDS: PANTOPRAZOLE 40 MG (PROTONIX) TAB PO SCH ×2 (08:31→20:28)
[2019-09-20] MEDS: LEVETIRACETAM 500 MG (KEPPRA) TAB PO SCH ×2 (08:31→20:29)
[2019-09-20] MEDS: guaiFENesin (MUCINEX) 600 MG TAB PO SCH (08:31)
[2019-09-20] MEDS: LORATADINE (CLARITIN) 10 MG TAB PO SCH (08:31)
[2019-09-20] MEDS: DOCUSATE SODIUM 100 MG (COLACE) CAP PO SCH (08:32)
[2019-09-20] MEDS: FLUTICASONE NASAL SPRAY (FLONASE) 16 GM BTL NS SCH (08:45)
[2019-09-20] MEDS: LEVOFLOXACIN 500 MG/100 ML IV 100 ML IV SCH (08:47)
[2019-09-20] MEDS: polyethylene glycoL POWDER 17 GM (MIRALAX) PACK PO SCH ×2 (08:47→20:29)
[2019-09-20] MEDS: ENOXAPARIN 30 MG/0.3 ML (LOVENOX) SYR SC SCH ×2 (08:47→20:29)
[2019-09-20] MEDS: SODIUM CHLORIDE 1 GM TABLET PO SCH ×2 (08:57→20:28)
[2019-09-20] MEDS: MUPIROCIN 2% OINT 22 GM (BACTROBAN) TUBE TOP SCH ×2 (08:58→20:51)
--- NOTE | 2019-09-20 10:11 | Physical Therapy Daily Note ---
PT Daily Note-Current Subjective Patient in bed pre tx, is very drowsy/sleepy, nurse states it is because of her pain meds, has pain when she wakes up for a few seconds and then goes back to sleep, she cannot stay awake long enough to talk, will attempt to perform PT. will be co-treating with OT due to poor patient mobility, strength, endurance, balance, the need to coordinate UE and LE during activity, reduce the risk of falls, decreased cognition Appearance Patient in bed post tx with nurse call, phone, tray, bed alarm on, all needs met. Mental Status Patient Orientation: Person, Non-Verbal/Aphasic Transfers SCALE: Activities may be completed with or without assistive devices. 1-Wguezxhfrn-jdnkpfb completes the activity by him/herself with no assistance from a helper. 5-Set-up or Clean-up Assistance-helper sets up or cleans up; patient completes activity. [place] assists only prior to or following the activity. 4-Supervision or Touching Assistance-helper provides verbal cues and/or touching/steadying and/or contact guard assistance as patient completes activity. Assistance may be provided throughout the activity or intermittently. 3-Partial/Moderate Assistance-helper does LESS THAN HALF the effort. [place] lifts, holds or supports trunk or limbs, but provides less than half the effort. 2-Substantial/Maximal Assistance-helper does MORE THAN HALF the effort. [place] lifts or holds trunk or limbs and provides more than half the effort. 5-Krzdqpzxv-kwcsou does ALL the effort. Patient does none of the effort to complete the activity. Or, the assistance of 2 or more helpers is required for the patient to complete the activity. If activity was not attempted, code reason: 7-Patient Refused. 9-Not Applicable-not attempted and the patient did not perform the activity before the current illness, exacerbation or injury. 10-Not Attempted due to Environmental Limitations-(lack of equipment, weather restraints, etc.). 88-Not Attempted due to Medical Conditions or Safety Concerns. Roll Left & Right (QC): 1 Sit to Lying (QC): 1 Sit to Stand (QC): 1 Chair/Dkq-og-Stncb Xfer(QC): 1 Patient transferred to from recliner, taken to therapy gym, patient cannot awake enough to participate in therapy, taken back to her room, transferred to bed, layed down, brief is wet, clean patient, leave brief off to air dry, nurse notified. Weight Bearing Right Lower Extremity: Right Non Weight Bearing Left Lower Extremity: Left Full Weight Bearing Treatments bed mobility and transfers, cleaning. PT performed transfers, bed mobility, rolling, OT performed cleaning, assist with transfers and sit to supine. Assessment Current Status: Poor Progress Patient too sleepy/drowsy to participate. PT Short Term Goals Short Term Goals Time Frame: Sep 26, 2019 Roll Left & Right: 2 Sit to lyin Lying to sitting on side of be: 2 Sit to stand: 2 Chair/bcq-xy-mbmdw transfer: 2 PT Mcfp Goals Mcfp Goals PT Baggageman Goals Time Frame: Oct 10, 2019 Roll Left & Right (QC): 3 Sit to Lying (QC): 3 Lying-Sitting on Side/Bed(QC): 3 Sit to Stand (QC): 3 Chair/Gob-ft-Nncio Xfer(QC): 3 Toilet Transfer (QC): 3 Car Transfer (QC): 3 Does the Patient Walk: No and Walking Goal NOT indicated Walk 10 feet (QC): 88 Walk 50ft with 2 Turns (QC): 88 Walk 150 ft (QC): 88 Walking 10ft on Uneven Surface: 88 1 Step (curb) (QC): 88 4 Steps (QC): 88 12 Steps (QC): 88 Picking up an Object (QC): 88 Wheel 50 feet with 2 turns (QC: 4 Wheel 150 feet: 4 PT Plan Problem List Problem List: Activity Tolerance, Functional Strength, Safety, Balance, Gait, Transfer, Bed Mobility, ROM Treatment/Plan Treatment Plan: Continue Plan of Care Treatment Plan: Bed Mobility, Education, Functional Activity Za, Functional Strength, Group Therapy, Gait, Safety, Therapeutic Exercise, Transfers Treatment Duration: Oct 10, 2019 Frequency: At least 5 of 7 days/Wk (IRF) Estimated Hrs Per Day: 1.5 hours per day Patient and/or Family Agrees t: Yes Safety Risks/Education Patient Education: Transfer Techniques, Correct Positioning, W/C Management, Safety Issues Teaching Recipient: Patient Teaching Methods: Demonstration, Discussion Response to Teaching: Reinforcement Needed Time/GCodes Time In: 0930 Time Out: 1000 Total Billed Treatment Time: 30 Total Billed Treatment 1 visit FA 30' co-treat for 30' MARIANN GARNETT PT Sep 20, 2019 10:11
--- NOTE | 2019-09-20 10:22 | Occupational Ther Daily Note ---
OT Current Status-Daily Note Subjective Pt. asleep in chair. Multiple attempts made to wake her up. Mental Status/Objective Patient Orientation: Confused Attachments: IV ADL-Treatment Therapy Code Descriptions/Definitions Functional [place] Measure: 0=Not Assessed/NA 4=Minimal Assistance 1=Total Assistance 5=Supervision or Setup 2=Maximal Assistance 6=Modified [place] 3=Moderate Assistance 7=Complete IndependenceSCALE: Activities may be completed with or without assistive devices. 1-Bcoojjrxwl-dscscnv completes the activity by him/herself with no assistance from a helper. 5-Set-up or Clean-up Assistance-helper sets up or cleans up; patient completes activity. [place] assists only prior to or following the activity. 4-Supervision or Touching Assistance-helper provides verbal cues and/or touching/steadying and/or contact guard assistance as patient completes activity. Assistance may be provided throughout the activity or intermittently. 3-Partial/Moderate Assistance-helper does LESS THAN HALF the effort. [place] lifts, holds or supports trunk or limbs, but provides less than half the effort. 2-Substantial/Maximal Assistance-helper does MORE THAN HALF the effort. [place] lifts or holds trunk or limbs and provides more than half the effort. 3-Ohmmqlmoy-edqebp does ALL the effort. Patient does none of the effort to complete the activity. Or, the assistance of 2 or more helpers is required for the patient to complete the activity. If activity was not attempted, code reason: 7-Patient Refused. 9-Not Applicable-not attempted and the patient did not perform the activity before the current illness, exacerbation or injury. 10-Not Attempted due to Environmental Limitations-(lack of equipment, weather restraints, etc.). 88-Not Attempted due to Medical Conditions or Safety Concerns. Toileting Hygiene (QC): 1 Other Treatment Pt. in chair and asleep. OT/PT attempted co-treatment due to need of skilled assistance. Multiple attempts made to wake pt. up. Pt. will open eyes, but fall back asleep. Notified nursing. Nursing reports that pt. had pain medication, and this may be reason for sleepiness. Nursing recommends to continue to attempt treatment. OT/PT transferred pt. to wheelchair with dependent assist x 2. OT attempts to facilitate ADL skill of brushing hair. Pt. holds brush but is unable to bring to her head. Taken to therapy gym. Attempted to engage pt. in washing face. Pt. unable to do so and so OT did for her. Attempted to communicate with talking, and with dry erase board. Pt. unable to keep eyes open to read board. Attempted UE gentle PROM. Pt. guarded with shoulder and says, "ow" when OT moves shoulder. Due to poor participation and inability to stay awake, OT/PT took pt. to room. PT assisted with transfer while OT assisted with snow cleanse, as pt. was incontinent of urine. Pt. positioned to comfort level. Pt. states that she hurts, but then falls asleep again and is unable to wake up to say where. Nursing notified and therapy will attempt back later. Education OT Patient Education: Correct positioning, Modified ADL techniques, Progress toward Goal/Update tx plan, Purpose of tx/functional activities, Reviewed precautions, Rehab process, Transfer techniques Teaching Recipient: Patient Teaching Methods: Demonstration, Discussion Response to Teaching: Unable to Return Demonstration, Unable to Comprehend OT Short Term Goals Short Term Goals Time Frame: Sep 26, 2019 Eatin (Min assist) Oral hygiene: 3 (Min assist) Toileting hygiene: 2 Shower/bathe self: 3 (Mod assist) Upper body dressin (Mod) Lower body dressin Putting on/taking off footwear: 2 OT Fci Goals Fci Goals Time Frame: Oct 10, 2019 Eating (QC): 4 Oral Hygiene (QC): 4 Toileting Hygiene (QC): 3 (Min) Shower/Bathe Self (QC): 3 (min) Upper Body Dressing (QC): 3 (Min) Lower Body Dressing (QC): 3 (Min) On/Off Footwear (QC): 3 (MIn) Additional Goals: 1-Demonstrate ADL Tasks, 2-Verbalize Understanding, 3- ImproveStrength/Za 1=Demonstrate adherence to instructed precautions during ADL tasks. 2=Patient will verbalize/demonstrate understanding of assistive devices/modifications for ADL. 3=Patient will improve strength/tolerance for activity to enable patient to perform ADL's. OT Education/Plan Problem List/Assessment Assessment: Decreased Activ Tolerance, Decreased Safety Aware, Decreased UE Strength, Dependent Transfers, Impaired Bed Mobility, Impaired Cognition, Impaired Coordination, Impaired Funct Balance, Impaired I ADL's, Impaired Self- Care Skills, Restricted Funct UE ROM Discharge Recommendations Plan/Recommendations: Continue POC Therapy Discharge Recommendati: 24 Hour Supervision Treatment Plan/Plan of Care Treatment,Training & Education: Yes Patient would benefit from OT for education, treatment and training to promote independence in ADL's, mobility, safety and/or upper extremity function for ADL's. Plan of Care: ADL Retraining, Caregiver Training, Functional Mobility, Group Exercise/Act as Ind, UE Funct Exercise/Act Treatment Duration: Oct 10, 2019 Frequency: At least 5 of 7 days/Wk (IRF) Estimated Hrs Per Day: 1.5 hours per day Agreement: Yes Rehab Potential: Guarded Time/GCodes Start Time: 09:30 Stop Time: 10:00 Total Time Billed (hr/min): 30 Billed Treatment Time 1, FA x 2. Co-treat with PT. Please see above note for designated roles. TERESE REYNOSO OT Sep 20, 2019 10:22
--- NOTE | 2019-09-20 11:00 | NUR ---
ATE BREAKFAST POORLY, HAS FEW TEETH. NOT HUNGRY. IS VERY FRAGILE AND SENSITIVE TO TOUCH. HAS BEEN ON SCHEDULED ROXICODONE. APPEARED TO TOLERATE IT OKAY, BUT THEN SLEPT THIS MORNING AND COULDN'T AWAKEN FOR THERAPY. BURPS FREQUENTLY AND COMPLAIN NAUSEA. MEDICATED WITH ZOFRAN.
[2019-09-20] MEDS: ONDANSETRON 4 MG/2 ML (SDV) Z0FRAN IVP PRN (11:14)
--- NOTE | 2019-09-20 11:41 | PM&R Progress Note ---
Subjective HPI/CC On Admission Date Seen by Provider: Sep 20, 2019 Time Seen by Provider: 11:15 Subjective/Events-last exam Scheduled Oxycodone will be changed to prn since she appears to be very sedated today Checked STAT labs and nothing really out of the ordinary there Had a reaction to the iron infusion so will discontinue that Overall she needs to be in a fpc, she is failing rehab, will try to m jeanette those arrangements. Checked meds and labs Conferred with RN Reviewed therapy notes Review of Systems General: Fatigue, Malaise Musculoskeletal: leg pain Neurological: Confusion Focused Exam Lactate Level 09/20/19 12:10: Lactic Acid Level 0.83 Objective Exam Vital Signs Vital Signs Date Time Temp Pulse Resp B/P (MAP) Pulse Ox O2 Delivery O2 Flow Rate FiO2 09/20/19 16:57 37.2 78 14 118/65 (82) 98 Room Air Capillary Refill : Less Than 3 Seconds General Appearance: WD/WN, Anxious, Chronically ill, Mild Distress (due to pain right leg amputation site) HEENT: PERRL/EOMI, Normal ENT Inspection, Pharynx Normal Neck: Full Range of Motion, Normal Inspection, Non Tender, Supple, Carotid Bruit Respiratory: Chest Non Tender, Lungs Clear, No Accessory Muscle Use, No Respiratory Distress, Decreased Breath Sounds Cardiovascular: Regular Rate, Rhythm, No Edema, No Gallop, No JVD, No Murmur, Normal Peripheral Pulses Gastrointestinal: Normal Bowel Sounds, No Organomegaly, No Pulsatile Mass, Non Tender, Soft Back: Normal Inspection, No CVA Tenderness, No Vertebral Tenderness Extremity: Normal Capillary Refill, Normal Inspection, Normal Range of Motion, Non Tender, No Calf Tenderness, No Pedal Edema, Other (right leg BKA surgical site with dressing intact) Neurologic/Psychiatric: Alert, No Motor/Sensory Deficits, Normal Mood/Affect, Disoriented, Other ([place]) Skin: Normal Color, Warm/Dry Lymphatic: No Adenopathy Results/Procedures Lab Laboratory Tests 09/20/19 12:10 Patient resulted labs reviewed. FIM Transfers Therapy Code Descriptions/Definitions Functional [place] Measure: 0=Not Assessed/NA 4=Minimal Assistance 1=Total Assistance 5=Supervision or Setup 2=Maximal Assistance 6=Modified [place] 3=Moderate Assistance 7=Complete IndependenceSCALE: Activities may be completed with or without assistive devices. 4-Styvdtvoag-tozcddc completes the activity by him/herself with no assistance from a helper. 5-Set-up or Clean-up Assistance-helper sets up or cleans up; patient completes activity. [place] assists only prior to or following the activity. 4-Supervision or Touching Assistance-helper provides verbal cues and/or touching/steadying and/or contact guard assistance as patient completes activity. Assistance may be provided throughout the activity or intermittently. 3-Partial/Moderate Assistance-helper does LESS THAN HALF the effort. [place] lifts, holds or supports trunk or limbs, but provides less than half the effort. 2-Substantial/Maximal Assistance-helper does MORE THAN HALF the effort. [place] lifts or holds trunk or limbs and provides more than half the effort. 2-Oplzihgre-mftfey does ALL the effort. Patient does none of the effort to complete the activity. Or, the assistance of 2 or more helpers is required for the patient to complete the activity. If activity was not attempted, code reason: 7-Patient Refused. 9-Not Applicable-not attempted and the patient did not perform the activity before the current illness, exacerbation or injury. 10-Not Attempted due to Environmental Limitations-(lack of equipment, weather restraints, etc.). 88-Not Attempted due to Medical Conditions or Safety Concerns. Roll Left to Right (QC): 1 Sit to Lying (QC): 1 Sit to Stand (QC): 1 Chair/Oam-iq-Ciuzv Xfer(QC): 1 Car Transfer (QC): 1 Gait Training Does the Patient Walk?: No and Walking Goal NOT indicated Walk 10 feet (QC): 88 Walk 50 ft with 2 Turns(QC): 88 Walk 150 ft (QC): 88 Walking 10ft/uneven surface-QC: 88 Wheelchair Training Does the Pt Use a Wheelchair?: Yes Wheel 50 ft with 2 turns (QC): 2 Wheel 150 ft (QC): 2 Type of Wheelchair: Manual Stair Training 1 Step (curb) (QC): 88 4 Steps (QC): 8 12 Steps (QC): 8 Balance Picking up an Object (QC): 88 ADL-Treatment Eating (QC): 10 Oral Hygiene (QC): 10 Shower/Bathe Self (QC): 1 (pt. sat on side of bed with full support for upright posture. OT assisted pt. with bathing while sitting in front. Pt. able to bathe arms and face, chest. However, required max assist to stand while another cleansed snow area. 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 unsuccessful in revascularization at [facility] and [facility] Hyperkalemia Hyponatremia placed on fluid restriction and salt tablets Leukocytosis likely reactive no infection found on w/u Coronary artery disease Hyperlipidemia Hypothyroidism Seizure disorder especially when hyponatremia worsens per son Seasonal allergies GERD Depression Bladder spasms DVT prophylaxis: Lovenox Plan: IRF protocol DC Fentanyl [facility] [employer] PO pain meds Dementia will slow recovery Fall risk ing risk Check labs stat Needs fpc failing rehab (1) S/P BKA (below knee amputation) Status: Acute (2) Leukocytosis Status: Acute (3) Hyponatremia Status: Chronic (4) Hyperkalemia Status: Resolved Resolution Date/Time: 09/17/19 @ 10:20 (5) Peripheral vascular disease (6) Intermittent atrial fibrillation Status: Acute (7) Seizure disorder (8) Hypothyroidism (9) Overactive bladder (10) Hyperlipemia (11) Hypertension (12) Dementia (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
--- NOTE | 2019-09-20 11:45 | Speech Therapy Daily Note ---
Speech Daily Progress Note Subjective Date Seen by Provider: Sep 20, 2019 Time Seen by Provider: 00:50 Patient was awake and c/o pain and nausea. Nursing gave patient nausea meds which helped her rest and get some pain relief. Objective Patient completed a series of "what's wrong with this picture" safety awareness cards with 70% given moderate cuing. Assessment Assessment Current Status: Fair Progress Treatment Plan Continue Plan of Care Speech Short Term Goals Short Term Goals Short Term Goals 1) Patient will complete memory tasks related to her daily needs at 80% with minimal cues. 2) Patient will complete safety awareness tasks related to her daily needs at 80% with minimal cues. 3) Patient will complete problem solving tasks related to her daily needs at 80% with minimal cues. Speech Alf Goals Alf Goals Patient will improve cognitive-communication necessary for safety and daily living tasks with minimal assist. Speech-Plan Patient/Family Goals Patient/Family Goals: Patient plans on returning home, however the rehab team and family will plan discharge as appropriate for the patient's safety and needs. Treatment Plan Speech Therapy Treatment Plan: Continue Plan of Care Patient is very [place] and utilizes a white board to communicate with others. Treatment Duration: Sep 30, 2019 Frequency: 5 times per week Estimated Hrs Per Day: .5 hour per day Rehab Potential: Guarded Barriers to Learning: Patient's [place] and cognitive deficits Pt/Family Agrees to Plan: Yes Safety Risks/Education Teaching Recipient: Patient Teaching Methods: Demonstration, Discussion Response to Teaching: Verbalize Understanding, Return Demonstration Education Topics Provided: Continued safety and communication of wants/needs Time Speech Therapy Time In: 11:00 Speech Therapy Time Out: 11:50 Total Billed Time: 50 Billed Treatment Time [address] Sep 20, 2019 11:45
[2019-09-20 12:15] LABS: BASOPHILS % (AUTO) 0 % (0-10); EOSINOPHILS % (AUTO) 0 % (0-10); HEMATOCRIT 22 % (35-52); HEMOGLOBIN 7.4 G/DL (11.5-16.0); LYMPHOCYTES # (AUTO) 0.8 X 10^3 (1.0-4.0); LYMPHOCYTES % (AUTO) 5 % (12-44); MEAN CORPUSCULAR HEMOGLOBIN 33 PG (25-34); MEAN CORPUSCULAR HGB CONC 34 G/DL (32-36); MEAN CORPUSCULAR VOLUME 98 FL (80-99); MEAN PLATELET VOLUME 11.4 FL (7.4-10.4); MONOCYTES # (AUTO) 1.5 X 10^3 (0.0-1.0); MONOCYTES % (AUTO) 9 % (0-12); NEUTROPHILS # (AUTO) 14.2 X 10^3 (1.8-7.8); NEUTROPHILS % (AUTO) 86 % (42-75); PLATELET COUNT 241 10^3/uL (130-400); RED CELL DISTRIBUTION WIDTH 12.3 % (10.0-14.5); WHITE BLOOD COUNT 16.5 10^3/uL (4.3-11.0)
[2019-09-20 12:35] LABS: ALBUMIN 2.8 GM/DL (3.2-4.5); CHLORIDE 100 MMOL/L (98-107); POTASSIUM 3.9 MMOL/L (3.6-5.0); SODIUM 131 MMOL/L (135-145)
[2019-09-20 12:36] LABS: CALCIUM 8.3 MG/DL (8.5-10.1)
[2019-09-20 12:37] LABS: GLUCOSE 84 MG/DL (70-105)
[2019-09-20 12:38] LABS: TOTAL PROTEIN 5.3 GM/DL (6.4-8.2)
[2019-09-20 12:39] LABS: BILIRUBIN,TOTAL 0.4 MG/DL (0.1-1.0); CARBON DIOXIDE 23 MMOL/L (21-32)
[2019-09-20 12:41] LABS: ALKALINE PHOSPHATASE 49 U/L (40-136); CREATININE SERUM 0.62 MG/DL (0.60-1.30); GFR ESTIMATED > 60
[2019-09-20 12:42] LABS: BUN/CREATININE RATIO 21
[2019-09-20 12:44] LABS: ALANINE AMINOTRANSFERASE 11 U/L (0-55)
[2019-09-20] MEDS: ACETAMINOPHEN 325 MG TABLET PO PRN (13:13)
--- NOTE | 2019-09-20 13:46 | NUR ---
CM/SS CONCURRENT DOCUMENTATION Visited with patient's son/DPOA-HC Carl Olvera. Regarding a discharge plan, he indicates patient will not be able to be cared for at home and will need community detention placement. He indicates his choice facility to be [facility]. [employer] did review facilities with him, in particular [facility] because they reside [facility]. Additionally, they are seeking placement for patient's spouse Yoni due to progressing dementia. It may be a goal for them to reside at the same facility, family choice. Yoni apparently walks and wanders about town ([place]) and does not dress appropriately to weather. Carl said he has been rescued many times by community members and either brought home or called Carl. [facility] has contacted [facility] about Yoni and they did ask about any wandering behavior since they are not a locked facility. [facility] intends to followup with them, he did not seem overwhelmed by the monthly cost. [facility] would accept Yoni due to safety concerns because of cognition impairment/elopement risk. Continue to partner with family members about next steps for patient.
--- NOTE | 2019-09-20 14:03 | Physical Therapy Daily Note ---
PT Daily Note-Current Subjective Pt in bed asleep upon arrival. Pt very lethargic and had problems staying awake throughout tx. Pt reports fibromylagia and states she has pain all over. Pt is hard of hearing, has white board in room used for communication. Pain Comment: Pt reports fibromylagia and doesn't rate pain. Mental Status Patient Orientation: Person Transfers SCALE: Activities may be completed with or without assistive devices. 0-Dqaeupfxuj-epygwjt completes the activity by him/herself with no assistance from a helper. 5-Set-up or Clean-up Assistance-helper sets up or cleans up; patient completes activity. [place] assists only prior to or following the activity. 4-Supervision or Touching Assistance-helper provides verbal cues and/or touching/steadying and/or contact guard assistance as patient completes activity. Assistance may be provided throughout the activity or intermittently. 3-Partial/Moderate Assistance-helper does LESS THAN HALF the effort. [place] lifts, holds or supports trunk or limbs, but provides less than half the effort. 2-Substantial/Maximal Assistance-helper does MORE THAN HALF the effort. [place] lifts or holds trunk or limbs and provides more than half the effort. 4-Oqmxbyrzq-ypyuii does ALL the effort. Patient does none of the effort to complete the activity. Or, the assistance of 2 or more helpers is required for the patient to complete the activity. If activity was not attempted, code reason: 7-Patient Refused. 9-Not Applicable-not attempted and the patient did not perform the activity before the current illness, exacerbation or injury. 10-Not Attempted due to Environmental Limitations-(lack of equipment, weather restraints, etc.). 88-Not Attempted due to Medical Conditions or Safety Concerns. Weight Bearing Right Lower Extremity: Right Non Weight Bearing Left Lower Extremity: Left Full Weight Bearing Exercises Supine Ex: Ankle pumps, Glut sets, Heel Slides, Straight leg raise, Hip abd/add Supine Reps: 15 Treatments Pt in bed upon arrival. Pt attempts to do exercises while supine, pt has trouble staying awake throughout, and would fall asleep while doing exercises. Pt completes exercises and was left in bed with all needs met. Call light in hand. Assessment Current Status: Fair Progress Pt very lethargic, couldn't stay awake throughout tx. Pt very confused but reports she isn't as confused as she previously was. Pt reports pain limitations at this time. PT Short Term Goals Short Term Goals Time Frame: Sep 26, 2019 Roll Left & Right: 2 Sit to lyin Lying to sitting on side of be: 2 Sit to stand: 2 Chair/kpb-zk-xiexs transfer: 2 PT Teacher Music Goals Teacher Music Goals PT Nursing Home Goals Time Frame: Oct 10, 2019 Roll Left & Right (QC): 3 Sit to Lying (QC): 3 Lying-Sitting on Side/Bed(QC): 3 Sit to Stand (QC): 3 Chair/Rks-uq-Uouil Xfer(QC): 3 Toilet Transfer (QC): 3 Car Transfer (QC): 3 Does the Patient Walk: No and Walking Goal NOT indicated Walk 10 feet (QC): 88 Walk 50ft with 2 Turns (QC): 88 Walk 150 ft (QC): 88 Walking 10ft on Uneven Surface: 88 1 Step (curb) (QC): 88 4 Steps (QC): 88 12 Steps (QC): 88 Picking up an Object (QC): 88 Wheel 50 feet with 2 turns (QC: 4 Wheel 150 feet: 4 PT Plan Problem List Problem List: Activity Tolerance, Functional Strength, Safety, Balance, Transfer, Bed Mobility, ROM Treatment/Plan Treatment Plan: Continue Plan of Care Treatment Plan: Bed Mobility, Education, Functional Activity Za, Functional Strength, Group Therapy, Gait, Safety, Therapeutic Exercise, Transfers Treatment Duration: Oct 10, 2019 Frequency: At least 5 of 7 days/Wk (IRF) Estimated Hrs Per Day: 1.5 hours per day Patient and/or Family Agrees t: Yes Safety Risks/Education Patient Education: Correct Positioning, Safety Issues Teaching Recipient: Patient Teaching Methods: Demonstration, Discussion Response to Teaching: Reinforcement Needed Time/GCodes Time In: 1330 Time Out: 1400 Total Billed Treatment Time: 30 Total Billed Treatment 1, Ex x2 (30m) DEE MADRID SODA FOUNTAIN OPERATOR Sep 20, 2019 14:03
--- NOTE | 2019-09-20 14:25 | Progress Note ---
Subjective Date Seen by a Provider: Sep 20, 2019 Time Seen by a Provider: 14:00 Subjective/Events-last exam clinically stable. very hard of hearing and does become confused. pain controlled. will take down dressing today. Focused Exam Lactate Level 09/20/19 12:10: Lactic Acid Level 0.83 Lactic Acid Level Laboratory Tests Test 09/20/19 12:10 Lactic Acid Level 0.83 MMOL/L (0.50-2.00) Objective Exam Vital Signs Date Time Temp Pulse Resp B/P (MAP) Pulse Ox O2 Delivery O2 Flow Rate FiO2 09/20/19 09:00 Room Air 09/20/19 05:29 37.7 85 18 117/67 (84) 97 Room Air 09/19/19 21:00 Room Air 09/19/19 16:00 36.9 77 14 101/57 (72) 100 Room Air I & O 09/20/19 07:00 Intake Total 1140 ml Output Total 125 ml Balance 1015 ml Capillary Refill : Less Than 3 Seconds General Appearance: No Apparent Distress HEENT: PERRL/EOMI Neck: Full Range of Motion, Normal Inspection, Non Tender Respiratory: Chest Non Tender, Lungs Clear Cardiovascular: Regular Rate, Rhythm Gastrointestinal: normal bowel sounds, non tender, soft Extremity: Slow Capillary Refill Neurologic/Psychiatric: Alert, Oriented x3 Skin: Normal Color Lymphatic: No Adenopathy Results Lab Laboratory Tests 09/20/19 12:10: White Blood Count 16.5H, Red Blood Count 2.26L, Hemoglobin 7.4L, Hematocrit 22L, Mean Corpuscular Volume 98, Mean Corpuscular Hemoglobin 33, Mean Corpuscular Hemoglobin Concent 34, Red Cell Distribution Width 12.3, Platelet Count 241, Mean Platelet Volume 11.4H, Neutrophils (%) (Auto) 86H, Lymphocytes (%) (Auto) 5L, Monocytes (%) (Auto) 9, Eosinophils (%) (Auto) 0, Basophils (%) (Auto) 0, Neutrophils # (Auto) 14.2H, Lymphocytes # (Auto) 0.8L, Monocytes # (Auto) 1.5H, Eosinophils # (Auto) 0.0, Basophils # (Auto) 0.0, Sodium Level 131L, Potassium Level 3.9, Chloride Level 100, Carbon Dioxide Level 23, Anion Gap 8, Blood Urea Nitrogen 13, Creatinine 0.62, Estimat Glomerular Filtration Rate > 60, BUN/Creatinine Ratio 21, Glucose Level 84, Lactic Acid Level 0.83, Calcium Level 8.3L, Corrected Calcium 9.3, Total Bilirubin 0.4, Aspartate Amino Transf (AST/SGOT) 24, Alanine Aminotransferase (ALT/SGPT) 11, Alkaline Phosphatase 49, Total Protein 5.3L, Albumin 2.8L, Procalcitonin 0.15H Assessment/Plan Assessment/Plan Assess & Plan/Chief 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 cont therapies. will take down dressing however cont splint to prevent contracture. Clinical Quality Measures DVT/VTE Risk/Contraindication: Risk Factor Score Per Nursin RFS Level Per Nursing on Admit: 4+=Very High ERICH CLEMENTE MD Sep 20, 2019 14:25
--- NOTE | 2019-09-20 14:59 | Occupational Ther Daily Note ---
OT Current Status-Daily Note Subjective Pt reports pain with movement, in hands and elbows. Pt. has had pain medication. Does not rate pain. Appearance Pt. in bed. Mental Status/Objective Patient Orientation: Unable to Assess ADL-Treatment Therapy Code Descriptions/Definitions Functional [place] Measure: 0=Not Assessed/NA 4=Minimal Assistance 1=Total Assistance 5=Supervision or Setup 2=Maximal Assistance 6=Modified [place] 3=Moderate Assistance 7=Complete IndependenceSCALE: Activities may be completed with or without assistive devices. 5-Glsfetjlmf-sivxubk completes the activity by him/herself with no assistance from a helper. 5-Set-up or Clean-up Assistance-helper sets up or cleans up; patient completes activity. [place] assists only prior to or following the activity. 4-Supervision or Touching Assistance-helper provides verbal cues and/or touching/steadying and/or contact guard assistance as patient completes activity. Assistance may be provided throughout the activity or intermittently. 3-Partial/Moderate Assistance-helper does LESS THAN HALF the effort. [place] lifts, holds or supports trunk or limbs, but provides less than half the effort. 2-Substantial/Maximal Assistance-helper does MORE THAN HALF the effort. [place] lifts or holds trunk or limbs and provides more than half the effort. 6-Kyrpimmnf-tvcfsk does ALL the effort. Patient does none of the effort to complete the activity. Or, the assistance of 2 or more helpers is required for the patient to complete the activity. If activity was not attempted, code reason: 7-Patient Refused. 9-Not Applicable-not attempted and the patient did not perform the activity before the current illness, exacerbation or injury. 10-Not Attempted due to Environmental Limitations-(lack of equipment, weather restraints, etc.). 88-Not Attempted due to Medical Conditions or Safety Concerns. Toileting Hygiene (QC): 1 Other Treatment Pt. in bed when OT entered room. Pt. requires cues to keep eyes open and participate. OT communicated with pt. via [place] board. Pt. is able to answer questions but requires tactile cues each time to open eyes to read board. Pt. participated in series of bilateral UE exercises in all planes using yellow therapy sponge, yellow theraband, and with AROM. Pt. will do several, and ei ther stop, or do more than is intended. Pt. verbalizes that her back is sore, but is unable to communicate what she would like to do to reposition. Pt. agrees to attempt using bedpan, as she states that she is unaware of incontinence. Rolls to left side and bedpan placed. Pt. does urinate and requires dependent assist for toilet hygiene. OT also completed communication and memory tasks with pt, by asking her questions about her family and past. Pt. is able to answer questions after reading them on board. Pt. requires encouragement throughout treatment due to lack of participation at times and reports of having pain. Pt. indicates that she has difficulty bending left arm with exercise, but is able to reach for book appropriately when it is handed to her. Pt. positioned to comfort level. All needs met. Education OT Patient Education: Correct positioning, Exercise program, Modified ADL techniques, Progress toward Goal/Update tx plan, Purpose of tx/functional activities, Reviewed precautions, Rehab process, Transfer techniques Teaching Recipient: Patient Teaching Methods: Demonstration, Discussion Response to Teaching: Verbalize Understanding, Return Demonstration OT Short Term Goals Short Term Goals Time Frame: Sep 26, 2019 Eatin (Min assist) Oral hygiene: 3 (Min assist) Toileting hygiene: 2 Shower/bathe self: 3 (Mod assist) Upper body dressin (Mod) Lower body dressin Putting on/taking off footwear: 2 OT Surveillance Sensor Operator Goals [facility] Goals Time Frame: Oct 10, 2019 Eating (QC): 4 Oral Hygiene (QC): 4 Toileting Hygiene (QC): 3 (Min) Shower/Bathe Self (QC): 3 (min) Upper Body Dressing (QC): 3 (Min) Lower Body Dressing (QC): 3 (Min) On/Off Footwear (QC): 3 (MIn) Additional Goals: 1-Demonstrate ADL Tasks, 2-Verbalize Understanding, 3-ImproveStrength/Za 1=Demonstrate adherence to instructed precautions during ADL tasks. 2=Patient will verbalize/demonstrate understanding of assistive devices/modifications for ADL. 3=Patient will improve strength/tolerance for activity to enable patient to perf orm ADL's. OT Education/Plan Problem List/Assessment Assessment: Decreased Activ Tolerance, Decreased UE Strength, Dependent Transfers, Impaired Bed Mobility, Impaired Cognition, Impaired Coordination, Impaired Funct Balance, Impaired I ADL's, Impaired Self-Care Skills, Restricted Funct UE ROM Discharge Recommendations Plan/Recommendations: Continue POC Therapy Discharge Recommendati: 24 Hour Supervision Treatment Plan/Plan of Care Treatment,Training & Education: Yes Patient would benefit from OT for education, treatment and training to promote independence in ADL's, mobility, safety and/or upper extremity function for ADL's. Plan of Care: ADL Retraining, Caregiver Training, Functional Mobility, Group Exercise/Act as Ind, UE Funct Exercise/Act Treatment Duration: Oct 10, 2019 Frequency: At least 5 of 7 days/Wk (IRF) Estimated Hrs Per Day: 1.5 hours per day Agreement: Yes Rehab Potential: Guarded Time/GCodes Start Time: 14:05 Stop Time: 14:45 Total Time Billed (hr/min): 40 Billed Treatment Time 1, Ex x 30minutes, FA x 10minutes TERESE REYNOSO OT Sep 20, 2019 14:58
--- NOTE | 2019-09-20 15:45 | NUR ---
"RD ASSESSMENT PMHx: hypercholesterolemia; HTN; dementia; chronic-UTI; GERD; diverticulosis; irritable bowel Current - R BKA PT INTERACTION: Pt was awake during dietary consult for MST score. Note pt has dementia, and appeared to be in pain during assessment. Note all information provided is per chart review. Pt is eating poorly, avg PO intake 29% x1d. Note no BM has been recorded, and pt currently on bowel regimen of colace qd; senna BID; and miralax BID. Note recent 6# wt gain x2mon. Although pt has poor PO intake, given wt hx, pt does not meet criteria for malnutrition per ASPEN guidelines. ABNORMAL NUTRITION-RELATED LAB VALUES LOW: Na 131; Ca 8.1; Pro 5.0; alb 2.7 HIGH: Est. kcal needs: 4912-9140 kcal | 25-30 kcal/kg Est. Pro needs: 51-61 g Pro | 1.0-1.2 g Pro/kg PES STATEMENT: Inadequate oral intake (NI-2.1) related to loss of appetite | pain | dementia as evidenced by chart review | avg PO intake 28% x1d INTERVENTION: Continue with current diet order of DYS3 Advanced, with modifier of Dry Trays. Would encourage pt to eat when able. Will continue to follow and reassess as pt needs, intake, and status change. MONITOR/EVALUATE: PO Intake; Plan of Care; Hydration Status; Weight Status; Lab Values Michael Sorto, MS, RD, LD"
--- NOTE | 2019-09-20 16:00 | NUR ---
DR. CLEMENTE HERE AND MEDICATED PER HIS ORDER WITH FENTANYL FOR INITIAL RIGHT STUMP DRESSING CHANGE. DRESSING WAS SOAKED WITH DRY BLOOD. ORDER RECEIVED FOR DAILY DRESSING CHANGES. SCHEDULED ROXICODONE HAS BEEN CHANGED TO PRN. HAD TYLENOL THIS AFTERNOON AND IT SEEMED TO HELP PAIN.
[2019-09-20] MEDS: BISACODYL 10 MG SUPP (DULCOLAX) PR PRN (16:39)
[2019-09-20 16:57] VITALS: BP 118/65
--- NOTE | 2019-09-20 17:00 | NUR ---
FAMILY WAS HERE AND PATIENT DID MUCH BETTER WITH THEM HERE. READ A NEWSPAPER AND VISITED. ALSO, ATE DINNER BETTER.
--- NOTE | 2019-09-20 18:00 | NUR ---
WAS MEDICATED WITH DULCOLAX SUPPOSITORY THIS AFTERNOON, BUT NO RESULTS YET.
[2019-09-20] MEDS: SIMvastatin 20 MG (ZOCOR) TAB PO SCH (20:29)
[2019-09-20] MEDS: SERTRALINE 50 MG (ZOLOFT) TABLET PO SCH (20:29)
[2019-09-20] MEDS: oxyCODONE 5 MG/5 ML ORAL SOLN (roxiCODONE) 5 ML UDC PO PRN (22:52)
[2019-09-21] MEDS: oxyCODONE 5 MG/5 ML ORAL SOLN (roxiCODONE) 5 ML UDC PO PRN ×2 (02:50→09:28)
[2019-09-21 05:16] VITALS: BP 135/70
[2019-09-21] MEDS: LEVOTHYROXINE 50 MCG (LEVOTHROID) TAB PO SCH (05:43)
[2019-09-21] MEDS: LEVOFLOXACIN 500 MG/100 ML IV 100 ML IV SCH (08:27)
[2019-09-21] MEDS: OXYBUTYNIN (DITROPAN) 5 MG TAB PO SCH ×2 (08:35→22:23)
[2019-09-21] MEDS: RANOLAZINE ER 500 MG TAB (RANEXA) PO SCH ×2 (08:35→22:22)
[2019-09-21] MEDS: FLUTICASONE NASAL SPRAY (FLONASE) 16 GM BTL NS SCH (08:35)
[2019-09-21] MEDS: ASPIRIN E.C. 81 MG (ECOTRIN) TAB PO SCH (08:36)
[2019-09-21] MEDS: SENNA W/DOCUSATE (SENOKOT S) TABLET PO SCH (08:36)
[2019-09-21] MEDS: guaiFENesin (MUCINEX) 600 MG TAB PO SCH (08:37)
[2019-09-21] MEDS: polyethylene glycoL POWDER 17 GM (MIRALAX) PACK PO SCH ×2 (08:38→21:00)
[2019-09-21] MEDS: LEVETIRACETAM 500 MG (KEPPRA) TAB PO SCH ×2 (08:38→22:23)
[2019-09-21] MEDS: PANTOPRAZOLE 40 MG (PROTONIX) TAB PO SCH ×2 (08:40→22:23)
[2019-09-21] MEDS: DOCUSATE SODIUM 100 MG (COLACE) CAP PO SCH (08:40)
[2019-09-21] MEDS: LORATADINE (CLARITIN) 10 MG TAB PO SCH (08:40)
[2019-09-21] MEDS: ACETAMINOPHEN 325 MG TABLET PO PRN (08:40)
[2019-09-21] MEDS: SODIUM CHLORIDE 1 GM TABLET PO SCH ×2 (08:42→22:23)
[2019-09-21] MEDS: ENOXAPARIN 30 MG/0.3 ML (LOVENOX) SYR SC SCH ×2 (08:42→22:22)
[2019-09-21] MEDS: MUPIROCIN 2% OINT 22 GM (BACTROBAN) TUBE TOP SCH ×2 (08:43→21:00)
--- NOTE | 2019-09-21 09:20 | NUR ---
STUMP DRESSING TO RBKA REDRESSED AND ASSESSED. AREA ON KNEE HAS PRESSURE AREA NOTED. WOUND CARE NURSE NOTIFIED. DR CLEMENTE NOTIFIED OF ASSESSMENT AND DISCONTINUE OF DEVICE. DTI NOTED. CAT INTACT , WELL APPROXIMATED, PURPLE BRUISING DISTAL STUMP. BRUISING POSTERIOR KNEE NOTED FROM DEVICE. AREA BLANCHES POSTERIORLY. OINTMENT ORDERED, 4X4, ABD, KERLIX, DALTON WRAP. MEDICATED WITH ARNIE ORDERED FOR C/O PAIN 09/29. PATIENT FREQUENTLY CALLS OUT IN PAIN. INCONTINENT OF BRIEF, TOTAL CARE FOR LEENA CARE AND TURNING. LARGE AMOUNT OF MUCUS NOTED FROM BOWELS. URINE IS STRONG. PATIENT ON LEVAQUIN. CALL LIGHT IN REACH, DENIES FURTHER NEEDS OR C/O.
--- NOTE | 2019-09-21 09:30 | NUR ---
DR MEYER HERE TO ASSESS PATIENT. NO NEW ORDERS AT THIS TIME.
--- NOTE | 2019-09-21 09:35 | PM&R Progress Note ---
Subjective HPI/CC On Admission Date Seen by Provider: Sep 21, 2019 Time Seen by Provider: 09:30 Subjective/Events-last exam BM on 09/15 will be given laxatives and after rounds she had large complete evacuation Fluoroquinolone maintained Pressure ulcer on her knee Overall everything hurts and she is failing rehab Will discuss in team meeting disposition, likely to a chcf and she very well may be a hospice candidate. Checked meds and labs Conferred with RN Reviewed therapy notes Review of Systems General: Fatigue, Malaise Musculoskeletal: leg pain Neurological: Weakness, Confusion Focused Exam Lactate Level 09/20/19 12:10: Lactic Acid Level 0.83 Objective Exam Vital Signs Vital Signs Date Time Temp Pulse Resp B/P (MAP) Pulse Ox O2 Delivery O2 Flow Rate FiO2 09/21/19 17:13 37.2 73 18 155/70 (98) 99 Room Air Capillary Refill : Less Than 3 Seconds General Appearance: WD/WN, Anxious, Chronically ill, Mild Distress (due to pain right leg amputation site) HEENT: PERRL/EOMI, Normal ENT Inspection, Pharynx Normal Neck: Full Range of Motion, Normal Inspection, Non Tender, Supple, Carotid Bruit Respiratory: Chest Non Tender, Lungs Clear, No Accessory Muscle Use, No Respiratory Distress, Decreased Breath Sounds Cardiovascular: Regular Rate, Rhythm, No Edema, No Gallop, No JVD, No Murmur, Normal Peripheral Pulses Gastrointestinal: Normal Bowel Sounds, No Organomegaly, No Pulsatile Mass, Non Tender, Soft Back: Normal Inspection, No CVA Tenderness, No Vertebral Tenderness Extremity: Normal Capillary Refill, Normal Inspection, Normal Range of Motion, Non Tender, No Calf Tenderness, No Pedal Edema, Other (right leg BKA surgical site with dressing intact) Neurologic/Psychiatric: Alert, No Motor/Sensory Deficits, Normal Mood/Affect, Disoriented, Other ([place]) Skin: Normal Color, Warm/Dry Lymphatic: No Adenopathy Results/Procedures Lab Patient resulted labs reviewed. FIM Transfers Therapy Code Descriptions/Definitions Functional [place] Measure: 0=Not Assessed/NA 4=Minimal Assistance 1=Total Assistance 5=Supervision or Setup 2=Maximal Assistance 6=Modified [place] 3=Moderate Assistance 7=Complete IndependenceSCALE: Activities may be completed with or without assistive devices. 6-Rqtzowqwyv-hptdytz completes the activity by him/herself with no assistance from a helper. 5-Set-up or Clean-up Assistance-helper sets up or cleans up; patient completes activity. [place] assists only prior to or following the activity. 4-Supervision or Touching Assistance-helper provides verbal cues and/or juancho erin/steadying and/or contact guard assistance as patient completes activity. Assistance may be provided throughout the activity or intermittently. 3-Partial/Moderate Assistance-helper does LESS THAN HALF the effort. [place] lifts, holds or supports trunk or limbs, but provides less than half the effort. 2-Substantial/Maximal Assistance-helper does MORE THAN HALF the effort. [place] lifts or holds trunk or limbs and provides more than half the effort. 3-Onruaizzt-antleb does ALL the effort. Patient does none of the effort to complete the activity. Or, the assistance of 2 or more helpers is required for the patient to complete the activity. If activity was not attempted, code reason: 7-Patient Refused. 9-Not Applicable-not attempted and the patient did not perform the activity before the current illness, exacerbation or injury. 10-Not Attempted due to Environmental Limitations-(lack of equipment, weather restraints, etc.). 88-Not Attempted due to Medical Conditions or Safety Concerns. Roll Left to Right (QC): 1 Sit to Lying (QC): 1 Sit to Stand (QC): 1 Chair/[place] Xfer(QC): 1 Car Transfer (QC): 1 Gait Training Does the Patient Walk?: No and Walking Goal NOT indicated Walk 10 feet (QC): 88 Walk 50 ft with 2 Turns(QC): 88 Walk 150 ft (QC): 88 Walking 10ft/uneven surface-QC: 88 Wheelchair Training Does the Pt Use a Wheelchair?: Yes Wheel 50 ft with 2 turns (QC): 2 Wheel 150 ft (QC): 2 Type of Wheelchair: Manual Stair Training 1 Step (curb) (QC): 88 4 Steps (QC): 8 12 Steps (QC): 8 Balance Picking up an Object (QC): 88 ADL-Treatment Eating (QC): 10 Oral Hygiene (QC): 10 Shower/Bathe Self (QC): 1 (pt. sat on side of bed with full support for upright posture. OT assisted pt. with bathing while sitting in front. Pt. able to bathe arms and face, chest. However, required max assist to stand while another cleansed snow area. 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 unsuccessful in revascularization at [facility] and [facility] Hyperkalemia Hyponatremia placed on fluid restriction and salt tablets Leukocytosis likely reactive no infection found on w/u Coronary artery disease Hyperlipidemia Hypothyroidism Seizure disorder especially when hyponatremia worsens per son Seasonal allergies GERD Depression Bladder spasms DVT prophylaxis: Lovenox Plan: IRF protocol DC Fentanyl 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
--- NOTE | 2019-09-21 11:09 | NUR ---
WOUND CARE NURSE HERE TO ASSESS PATIENT. CONTINUE TO MONITOR.
--- NOTE | 2019-09-21 11:31 | Occupational Ther Daily Note ---
OT Current Status-Daily Note Subjective Pt. does not report pain level, but yells out throughout treatment with movement. Pt. also keeps eyes closed throughout off and on when no movement is occurring. Nursing is notified and states that pt. has had all available pain medication. Appearance Nursing was beginning to assist pt. with brief change when therapy entered room. Pt. in bed and alert. Mental Status/Objective Patient Orientation: Unable to Assess ADL-Treatment Therapy Code Descriptions/Definitions Functional [place] Measure: 0=Not Assessed/NA 4=Minimal Assistance 1=Total Assistance 5=Supervision or Setup 2=Maximal Assistance 6=Modified [place] 3=Moderate Assistance 7=Complete IndependenceSCALE: Activities may be completed with or without assistive devices. 0-Rkpytendeu-lrfiwnj completes the activity by him/herself with no assistance from a helper. 5-Set-up or Clean-up Assistance-helper sets up or cleans up; patient completes activity. [place] assists only prior to or following the activity. 4-Supervision or Touching Assistance-helper provides verbal cues and/or touching/steadying and/or contact guard assistance as patient completes activity. Assistance may be provided throughout the activity or intermittently. 3-Partial/Moderate Assistance-helper does LESS THAN HALF the effort. [place] lifts, holds or supports trunk or limbs, but provides less than half the effort. 2-Substantial/Maximal Assistance-helper does MORE THAN HALF the effort. [place] lifts or holds trunk or limbs and provides more than half the effort. 0-Pxmvguhuh-ikndzl does ALL the effort. Patient does none of the effort to complete the activity. Or, the assistance of 2 or more helpers is required for the patient to complete the activity. If activity was not attempted, code reason: 7-Patient Refused. 9-Not Applicable-not attempted and the patient did not perform the activity before the current illness, exacerbation or injury. 10-Not Attempted due to Environmental Limitations-(lack of equipment, weather restraints, etc.). 88-Not Attempted due to Medical Conditions or Safety Concerns. Oral Hygiene (QC): 4 (SBA and many cues, as pt. began to perseverate on using toothbrush and then fingers to clean teeth. Pt. attempted to use wipes on teeth, and required re-direction.) Shower/Bathe Self (QC): 2 (Pt. able to wash face and chest, as well as arms at bed level. Required max assist with all other parts.) Upper Body Dressing (QC): 10 Lower Body Dressing (QC): 10 On/Off Footwear: 1 Toileting Hygiene (QC): 1 Other Treatment OT assists nursing with changing brief in bed. OT brought in items to assist pt. with bed bath, hair wash, and tooth brushing at bed level. Pt. very JENA and requires questions to be written down for her. Pt. will close eyes during activities and requires gentle reminders to sequence and complete the activity. PT came in to assist with partial co-treat. PT assisted with positioning and mobility during ADLs that were facilitated by OT. Pt. transferred supine-sit with max x 2, and then stood with dependent assist x 2 and transferred to wheelchair. Pt. taken to therapy gym. Pt. stood x 2 at parallel bars with max x 2. Pt. yells out throughout treatment and cries when sitting. When pt. has a thought that distracts her, will begin talking about it and not reporting the pain. When pt. is asked to do simple task of bending elbows, pt. cries and demonstrates anxiety. Pt. requires most things to be written, but at times, seems to be able to hear this therapist and answer question. Pt. taken back to room and is transferred to bed with dependent assist x 2. Pt. positioned in bed. Reports feeling nauseated and nursing gives medication. All needs are met with nursing and wound care in room when therapy leaves. Education OT Patient Education: Correct positioning, Exercise program, Modified ADL techniques, Progress toward Goal/Update tx plan, Purpose of tx/functional activities, Reviewed precautions, Rehab process, Transfer techniques Teaching Recipient: Patient Teaching Methods: Demonstration, Discussion Response to Teaching: Unable to Return Demonstration, Unable to Comprehend, Reinforcement Needed OT Short Term Goals Short Term Goals Time Frame: Sep 26, 2019 Eatin (Min assist) Oral hygiene: 3 (Min assist) Toileting hygiene: 2 Shower/bathe self: 3 (Mod assist) Upper body dressin (Mod) Lower body dressin Putting on/taking off footwear: 2 OT [facility] Goals [facility] Goals Time Frame: Oct 10, 2019 Eating (QC): 4 Oral Hygiene (QC): 4 Toileting Hygiene (QC): 3 (Min) Shower/Bathe Self (QC): 3 (min) Upper Body Dressing (QC): 3 (Min) Lower Body Dressing (QC): 3 (Min) On/Off Footwear (QC): 3 (MIn) Additional Goals: 1-Demonstrate ADL Tasks, 2-Verbalize Understanding, 3- ImproveStrength/Za 1=Demonstrate adherence to instructed precautions during ADL tasks. 2=Patient will verbalize/demonstrate understanding of assistive devices/modifications for ADL. 3=Patient will improve strength/tolerance for activity to enable patient to perform ADL's. OT Education/Plan Problem List/Assessment Assessment: Decreased Activ Tolerance, Decreased Safety Aware, Decreased UE Strength, Dependent Transfers, Impaired Bed Mobility, Impaired Cognition, Impaired Funct Balance, Impaired I ADL's, Impaired Self-Care Skills, Restricted Funct UE ROM Discharge Recommendations Plan/Recommendations: Continue POC Therapy Discharge Recommendati: 24 Hour Supervision Treatment Plan/Plan of Care Treatment,Training & Education: Yes Patient would benefit from OT for education, treatment and training to promote independence in ADL's, mobility, safety and/or upper extremity function for ADL's. Plan of Care: ADL Retraining, Caregiver Training, Functional Mobility, Group Exercise/Act as Ind, UE Funct Exercise/Act Treatment Duration: Oct 10, 2019 Frequency: At least 5 of 7 days/Wk (IRF) Estimated Hrs Per Day: 1.5 hours per day Agreement: Yes Rehab Potential: Guarded Time/GCodes Start Time: 09:30 Stop Time: 10:45 Total Time Billed (hr/min): 75 Billed Treatment Time 1, ADL x 45minutes, FA x 30minutes [id number] PT co-treatment. (Please see above note for designated roles.) ADL x 3, FA x 1 [id number] OT only FA x 1 TERESE REYNOSO OT Sep 21, 2019 11:31
--- NOTE | 2019-09-21 12:26 | Physical Therapy Daily Note ---
PT Daily Note-Current Subjective Pt laying Supine in bed with OT present upon arrival. Pt agrees to PT/OT co- treat. Pt is [place] and uses white board for communication. Pt vocal of pain throughout Rx. Pain Comment: Pt reports Fibromyalgia, generalized pain but doesn't rate. Mental Status Patient Orientation: Person, Confused Attachments: Other-See Comments ([place] wrap for R stump) Transfers SCALE: Activities may be completed with or without assistive devices. 1-Eryrjzqtxq-inmyeoi completes the activity by him/herself with no assistance from a helper. 5-Set-up or Clean-up Assistance-helper sets up or cleans up; patient completes activity. [place] assists only prior to or following the activity. 4-Supervision or Touching Assistance-helper provides verbal cues and/or touching/steadying and/or contact guard assistance as patient completes act ivity. Assistance may be provided throughout the activity or intermittently. 3-Partial/Moderate Assistance-helper does LESS THAN HALF the effort. [place] lifts, holds or supports trunk or limbs, but provides less than half the effort. 2-Substantial/Maximal Assistance-helper does MORE THAN HALF the effort. [place] lifts or holds trunk or limbs and provides more than half the effort. 3-Rdmnkibel-nwbcqi does ALL the effort. Patient does none of the effort to complete the activity. Or, the assistance of 2 or more helpers is required for the patient to complete the activity. If activity was not attempted, code reason: 7-Patient Refused. 9-Not Applicable-not attempted and the patient did not perform the activity before the current illness, exacerbation or injury. 10-Not Attempted due to Environmental Limitations-(lack of equipment, weather restraints, etc.). 88-Not Attempted due to Medical Conditions or Safety Concerns. Sit to Stand (QC): 1 Weight Bearing Right Lower Extremity: Right Non Weight Bearing Left Lower Extremity: Left Full Weight Bearing Exercises Standing: Sit to Stand Treatments OT assists nursing with changing brief in bed. OT brought in items to assist pt. with bed bath, hair wash, and tooth brushing at bed level. Pt. very [place] and requires questions to be written down for her. Pt. will close eyes during activities and requires gentle reminders to sequence and complete the activity. PT came in to co-treat. PT assisted with positioning and mobility during ADLs that were facilitated by OT. Pt. transferred supine-sit with max x 2, and then stood with dependent assist x 2 and transferred to wheelchair. Pt. taken to therapy gym. Pt. stood x 2 at parallel bars with max x 2. Pt. yells out throughout treatment and cries when sitting. When pt. has a thought that distracts her, will begin talking about it and not reporting the pain. When pt. is asked to do simple task of bending elbows, pt. cries and demonstrates anxiety. Pt. requires most things to be written, but at times, seems to be able to hear this therapist and answer question. PT departs from Rx as OT continues. Assessment Current Status: Fair Progress Pt reports pain throughout Rx. Pt has difficulty following directions and they often have to be repeated. Pt takes extended time to complete tasks. PT Short Term Goals Short Term Goals Time Frame: Sep 26, 2019 Roll Left & Right: 2 Sit to lyin Lying to sitting on side of be: 2 Sit to stand: 2 Chair/vye-yx-nmpvq transfer: 2 PT Director Of Rotc Goals Director Of Rotc Goals PT Long-Term Goals Time Frame: Oct 10, 2019 Roll Left & Right (QC): 3 Sit to Lying (QC): 3 Lying-Sitting on Side/Bed(QC): 3 Sit to Stand (QC): 3 Chair/Ylu-yq-Fusss Xfer(QC): 3 Toilet Transfer (QC): 3 Car Transfer (QC): 3 Does the Patient Walk: No and Walking Goal NOT indicated Walk 10 feet (QC): 88 Walk 50ft with 2 Turns (QC): 88 Walk 150 ft (QC): 88 Walking 10ft on Uneven Surface: 88 1 Step (curb) (QC): 88 4 Steps (QC): 88 12 Steps (QC): 88 Picking up an Object (QC): 88 Wheel 50 feet with 2 turns (QC: 4 Wheel 150 feet: 4 PT Plan Problem List Problem List: Activity Tolerance, Functional Strength, Safety, Balance, Gait, Transfer, Bed Mobility, ROM Treatment/Plan Treatment Plan: Continue Plan of Care Treatment Plan: Bed Mobility, Education, Functional Activity Za, Functional Strength, Group Therapy, Gait, Safety, Therapeutic Exercise, Transfers Treatment Duration: Oct 10, 2019 Frequency: At least 5 of 7 days/Wk (IRF) Estimated Hrs Per Day: 1.5 hours per day Patient and/or Family Agrees t: Yes Safety Risks/Education Patient Education: Transfer Techniques, Correct Positioning, Safety Issues Teaching Recipient: Patient Teaching Methods: Discussion Response to Teaching: Reinforcement Needed Time/GCodes Time In: 930 Time Out: 1030 Total Billed Treatment Time: 60 Total Billed Treatment 1, FA x2 (30m) & EX x2 (30m) DEE MADRID BUILDING ADMIN Sep 21, 2019 12:26
[2019-09-21] MEDS: ONDANSETRON 4 MG (ZOFRAN) ORAL DISSOLVE TAB PO PRN (12:48)
--- NOTE | 2019-09-21 13:00 | NUR ---
DR CLEMENTE HERE TO ASSESS PATIENT . NO NEW ORDERS
--- NOTE | 2019-09-21 13:44 | Progress Note ---
Subjective Date Seen by a Provider: Sep 21, 2019 Time Seen by a Provider: 13:30 Subjective/Events-last exam doing ok. pain controlled. no fever/chills. Focused Exam Lactate Level 09/20/19 12:10: Lactic Acid Level 0.83 Objective Exam Vital Signs Date Time Temp Pulse Resp B/P (MAP) Pulse Ox O2 Delivery O2 Flow Rate FiO2 09/21/19 08:00 Room Air 09/21/19 05:16 36.8 83 20 135/70 (91) 98 Room Air 09/20/19 21:23 Room Air 09/20/19 17:58 Room Air 09/20/19 16:57 37.2 78 14 118/65 (82) 98 Room Air I & O 09/21/19 07:00 Intake Total 900 ml Balance 900 ml Capillary Refill : Less Than 3 Seconds General Appearance: No Apparent Distress HEENT: PERRL/EOMI Neck: Full Range of Motion Respiratory: Chest Non Tender, Normal Breath Sounds Cardiovascular: Regular Rate, Rhythm Gastrointestinal: non tender, soft Extremity: Slow Capillary Refill, Other (rt bka dressed day with new splint.) Neurologic/Psychiatric: Alert, Oriented x3 Skin: Normal Color Lymphatic: No Adenopathy Assessment/Plan Assessment/Plan Assess & Plan/Chief 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 cont therapies. will take down dressing however cont splint to prevent contracture. Clinical Quality Measures DVT/VTE Risk/Contraindication: Risk Factor Score Per Nursin RFS Level Per Nursing on Admit: 4+=Very High ERICH CLEMENTE MD Sep 21, 2019 13:44
--- NOTE | 2019-09-21 14:03 | Physical Therapy Daily Note ---
PT Daily Note-Current Subjective Pt in bed upon arrival and agrees to tx. Pt states she has pain everywhere but doesn't rate it. Pt states her stomach is hurting and she feels nauseated, nursing was notified. Pain Pain Description: Ache Comment: Generalized pain throughout body, didn't rate out of 10. Mental Status Patient Orientation: Person Transfers SCALE: Activities may be completed with or without assistive devices. 3-Brsoxrvssc-ydutfjp completes the activity by him/herself with no assistance from a helper. 5-Set-up or Clean-up Assistance-helper sets up or cleans up; patient completes activity. [place] assists only prior to or following the activity. 4-Supervision or Touching Assistance-helper provides verbal cues and/or touching/steadying and/or contact guard assistance as patient completes activity. Assistance may be provided throughout the activity or intermittently. 3-Partial/Moderate Assistance-helper does LESS THAN HALF the effort. [place] li fts, holds or supports trunk or limbs, but provides less than half the effort. 2-Substantial/Maximal Assistance-helper does MORE THAN HALF the effort. [place] lifts or holds trunk or limbs and provides more than half the effort. 8-Uzpmmcevw-ysvfbo does ALL the effort. Patient does none of the effort to complete the activity. Or, the assistance of 2 or more helpers is required for the patient to complete the activity. If activity was not attempted, code reason: 7-Patient Refused. 9-Not Applicable-not attempted and the patient did not perform the activity before the current illness, exacerbation or injury. 10-Not Attempted due to Environmental Limitations-(lack of equipment, weather restraints, etc.). 88-Not Attempted due to Medical Conditions or Safety Concerns. Roll Left & Right (QC): 2 Weight Bearing Right Lower Extremity: Right Non Weight Bearing Left Lower Extremity: Left Full Weight Bearing Exercises Supine Ex: Ankle pumps, Short Arc Quads, Straight leg raise Supine Reps: 10 Treatments Pt in bed and reported having pain in stomach. Pt had a soiled brief and PT cleaned her. Pt performed bed mobility MaxA x2 for rolling. Pt then performs supine exercises. Pt left in bed with all needs met, call light in hand. Assessment Current Status: Fair Progress Pt easily became fatigued and was self guarding d/t pain. Pt closed her eyes throughout tx and during exercises. Pt seemed confused and unaware of what was going on at times throughout tx. PT Short Term Goals Short Term Goals Time Frame: Sep 26, 2019 Roll Left & Right: 2 Sit to lyin Lying to sitting on side of be: 2 Sit to stand: 2 Chair/lpd-jq-umduh transfer: 2 PT Penitentiary Goals Configuration Manager Goals PT Configuration Manager Goals Time Frame: Oct 10, 2019 Roll Left & Right (QC): 3 Sit to Lying (QC): 3 Lying-Sitting on Side/Bed(QC): 3 Sit to Stand (QC): 3 Chair/Wnq-ay-Fffon Xfer(QC): 3 Toilet Transfer (QC): 3 Car Transfer (QC): 3 Does the Patient Walk: No and Walking Goal NOT indicated Walk 10 feet (QC): 88 Walk 50ft with 2 Turns (QC): 88 Walk 150 ft (QC): 88 Walking 10ft on Uneven Surface: 88 1 Step (curb) (QC): 88 4 Steps (QC): 88 12 Steps (QC): 88 Picking up an Object (QC): 88 Wheel 50 feet with 2 turns (QC: 4 Wheel 150 feet: 4 PT Plan Problem List Problem List: Activity Tolerance, Functional Strength, Safety, Balance, Transfer, Bed Mobility, ROM Treatment/Plan Treatment Plan: Continue Plan of Care Treatment Plan: Bed Mobility, Education, Functional Activity Za, Functional Strength, Group Therapy, Gait, Safety, Therapeutic Exercise, Transfers Treatment Duration: Oct 10, 2019 Frequency: At least 5 of 7 days/Wk (IRF) Estimated Hrs Per Day: 1.5 hours per day Patient and/or Family Agrees t: Yes Safety Risks/Education Patient Education: Correct Positioning, Safety Issues Teaching Recipient: Patient Teaching Methods: Demonstration, Discussion Response to Teaching: Unable to Return Demonstration, Reinforcement Needed Time/GCodes Time In: 1330 Time Out: 1400 Total Billed Treatment Time: 30 Total Billed Treatment 1, FA (20m), Ex (10m) DEE MADRID PTA Sep 21, 2019 14:03
--- NOTE | 2019-09-21 14:46 | NUR ---
AIR MATTRESS ORDERED FOR MARLENE SCALE OF 11. PATIENT ALSO REFUSES TO BE TURNED AT TIMES, DESPITE EDUCATION. CONTINUE TO MONITOR.
--- NOTE | 2019-09-21 14:53 | Speech Therapy Daily Note ---
Speech Daily Progress Note Subjective Date Seen by Provider: Sep 21, 2019 Time Seen by Provider: 00:30 Patient was alert and interacted with clinician well this date. Objective Patient completed a series of problem solving scenarios with 80% given moderate cues and frequent encouragement. Assessment Assessment Current Status: Fair Progress Treatment Plan Continue Plan of Care Speech Short Term Goals Short Term Goals Short Term Goals 1) Patient will complete memory tasks related to her daily needs at 80% with minimal cues. 2) Patient will complete safety awareness tasks related to her daily needs at 80% with minimal cues. 3) Patient will complete problem solving tasks related to her daily needs at 80% with minimal cues. Speech Fire Management Technician Goals Penitentiary Goals Patient will improve cognitive-communication necessary for safety and daily living tasks with minimal assist. Speech-Plan Patient/Family Goals Patient/Family Goals: Patient will be discharged to a local SNF in the upcoming week. Treatment Plan Speech Therapy Treatment Plan: Continue Plan of Care Treatment Duration: Sep 30, 2019 Frequency: 5 times per week Estimated Hrs Per Day: .5 hour per day Rehab Potential: Guarded Barriers to Learning: Patient's medical status, [place] and cognitive deficits Pt/Family Agrees to Plan: Yes Safety Risks/Education Teaching Recipient: Patient Teaching Methods: Demonstration, Discussion Response to Teaching: Verbalize Understanding, Return Demonstration Education Topics Provided: Continued safety within her room Time Speech Therapy Time In: 08:45 Speech Therapy Time Out: 09:15 Total Billed Time: 30 Billed Treatment Time [address] Sep 21, 2019 14:53
--- NOTE | 2019-09-21 15:54 | NUR ---
CM/SS PATIENT CARE CONFERENCE Patient's and son at bedside this afternoon. Reviewed Summary with son Carl who is POA-HC and he understands the discharge plan is for transfer to SNF, target date Saturday, September 28, 2019. Carl is an RN as is his sister Johanna. 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 He resigned his position in order to be caregiver for his parents. He has been exploring a residential or alternative care arrangement for them and is now at the crux of making a decision. He states that his father has dementia and is still hoping for a miracle that patient will become well and able to return home. Patient has dementia as well and has not shown promise to be functional enough post op BKA to be cared for by family. Carl has selected [email or web address] for patient, conventional mortgage underwriter will initiate referral once contact can be made. He has contacted [facility] Koo about his father; however, his ideal would be that patient and spouse could at least be in the same facility even if not in the same level of care. Physician Practice Coordinator has posed the question to [facility] whether the two could visit if in the same building, in light of the current Covid19 protocols regarding visitors. [facility] had a special of one month free for [facility] persons, inquired as to whether this is still the case, await response. Continue to work toward SNF discharge for patient, partner with Carl to assist as possible with Mr. Olvera placement as well. Mr. Olvera does not have [facility] because they did a Division of Assets in order to get patient qualified. Carl may explore getting his dad on as well now that they are in a life chapter where a move from home is imminent.
[2019-09-21 17:13] VITALS: BP 155/70
[2019-09-21] MEDS: SIMvastatin 20 MG (ZOCOR) TAB PO SCH (22:22)
[2019-09-21] MEDS: SERTRALINE 50 MG (ZOLOFT) TABLET PO SCH (22:23)
[2019-09-21] MEDS: MELATONIN 3 MG TABLET PO PRN (22:23)
[2019-09-22] MEDS: oxyCODONE 5 MG/5 ML ORAL SOLN (roxiCODONE) 5 ML UDC PO PRN ×4 (03:54→17:41)
[2019-09-22 06:00] VITALS: BP 170/80
[2019-09-22] MEDS: LEVOTHYROXINE 50 MCG (LEVOTHROID) TAB PO SCH (06:30)
--- NOTE | 2019-09-22 06:34 | PM&R Progress Note ---
Subjective HPI/CC On Admission Date Seen by Provider: Sep 22, 2019 Time Seen by Provider: 10:45 Subjective/Events-last exam No major changes Dr. Thomas has DC the splint due to skin breakdown Levaquin last dose today Requesting saline nasal spray Denies any other significant issues Dementia and hard of hearing makes it very difficult and she has behaviors related to dementia Needs skilled care Checked meds and labs Conferred with RN Reviewed therapy notes Review of Systems General: Fatigue Neurological: Confusion Focused Exam Lactate Level 09/20/19 12:10: Lactic Acid Level 0.83 Objective Exam Vital Signs Vital Signs Date Time Temp Pulse Resp B/P (MAP) Pulse Ox O2 Delivery O2 Flow Rate FiO2 09/22/19 17:51 Room Air 09/22/19 16:16 36.5 89 14 135/77 (96) 100 Capillary Refill : Less Than 3 Seconds General Appearance: WD/WN, Anxious, Chronically ill, Mild Distress (due to pain right leg amputation site) HEENT: PERRL/EOMI, Normal ENT Inspection, Pharynx Normal Neck: Full Range of Motion, Normal Inspection, Non Tender, Supple, Carotid Bruit Respiratory: Chest Non Tender, Lungs Clear, No Accessory Muscle Use, No Respiratory Distress, Decreased Breath Sounds Cardiovascular: Regular Rate, Rhythm, No Edema, No Gallop, No JVD, No Murmur, Normal Peripheral Pulses Gastrointestinal: Normal Bowel Sounds, No Organomegaly, No Pulsatile Mass, Non Tender, Soft Back: Normal Inspection, No CVA Tenderness, No Vertebral Tenderness Extremity: Normal Capillary Refill, Normal Inspection, Normal Range of Motion, Non Tender, No Calf Tenderness, No Pedal Edema, Other (right leg BKA surgical site with dressing intact) Neurologic/Psychiatric: Alert, No Motor/Sensory Deficits, Normal Mood/Affect, Disoriented, Other ([place]) Skin: Normal Color, Warm/Dry Lymphatic: No Adenopathy Results/Procedures Lab Patient resulted labs reviewed. FIM Transfers Therapy Code Descriptions/Definitions Functional [place] Measure: 0=Not Assessed/NA 4=Minimal Assistance 1=Total Assistance 5=Supervision or Setup 2=Maximal Assistance 6=Modified [place] 3=Moderate Assistance 7=Complete IndependenceSCALE: Activities may be completed with or without assistive devices. 3-Tiehofdjvy-ilybxju completes the activity by him/herself with no assistance from a helper. 5-Set-up or Clean-up Assistance-helper sets up or cleans up; patient completes activity. [place] assists only prior to or following the activity. 4-Supervision or Touching Assistance-helper provides verbal cues and/or touching/steadying and/or contact guard assistance as patient completes acti vity. Assistance may be provided throughout the activity or intermittently. 3-Partial/Moderate Assistance-helper does LESS THAN HALF the effort. [place] lifts, holds or supports trunk or limbs, but provides less than half the effort. 2-Substantial/Maximal Assistance-helper does MORE THAN HALF the effort. [place] lifts or holds trunk or limbs and provides more than half the effort. 0-Dhewmkzzz-jlgvsn does ALL the effort. Patient does none of the effort to complete the activity. Or, the assistance of 2 or more helpers is required for the patient to complete the activity. If activity was not attempted, code reason: 7-Patient Refused. 9-Not Applicable-not attempted and the patient did not perform the activity before the current illness, exacerbation or injury. 10-Not Attempted due to Environmental Limitations-(lack of equipment, weather restraints, etc.). 88-Not Attempted due to Medical Conditions or Safety Concerns. Roll Left to Right (QC): 2 Sit to Lying (QC): 1 Sit to Stand (QC): 1 Chair/Yvd-tz-Yaohh Xfer(QC): 1 Car Transfer (QC): 1 Gait Training Does the Patient Walk?: No and Walking Goal NOT indicated Walk 10 feet (QC): 88 Walk 50 ft with 2 Turns(QC): 88 Walk 150 ft (QC): 88 Walking 10ft/uneven surface-QC: 88 Wheelchair Training Does the Pt Use a Wheelchair?: Yes Wheel 50 ft with 2 turns (QC): 2 Wheel 150 ft (QC): 2 Type of Wheelchair: Manual Stair Training 1 Step (curb) (QC): 88 4 Steps (QC): 8 12 Steps (QC): 8 Balance Picking up an Object (QC): 88 ADL-Treatment Eating (QC): 10 Oral Hygiene (QC): 4 (SBA and many cues, as pt. began to perseverate on using toothbrush and then fingers to clean teeth. Pt. attempted to use wipes on teeth, and required re-direction.) Shower/Bathe Self (QC): 2 (Pt. able to wash face and chest, as well as arms at bed level. 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 unsuccessful in revascularization at [facility] and [facility] Hyperkalemia Hyponatremia placed on fluid restriction and salt tablets Leukocytosis likely reactive no infection found on w/u Coronary artery disease Hyperlipidemia Hypothyroidism Seizure disorder especially when hyponatremia worsens per son Seasonal allergies GERD Depression Bladder spasms DVT prophylaxis: Lovenox Plan: IRF protocol DC Fentanyl PAPER 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
[2019-09-22] MEDS: LORATADINE (CLARITIN) 10 MG TAB PO SCH (08:09)
[2019-09-22] MEDS: RANOLAZINE ER 500 MG TAB (RANEXA) PO SCH ×2 (08:09→20:48)
[2019-09-22] MEDS: PANTOPRAZOLE 40 MG (PROTONIX) TAB PO SCH ×2 (08:10→20:50)
[2019-09-22] MEDS: ASPIRIN E.C. 81 MG (ECOTRIN) TAB PO SCH (08:10)
[2019-09-22] MEDS: DOCUSATE SODIUM 100 MG (COLACE) CAP PO SCH (08:10)
[2019-09-22] MEDS: guaiFENesin (MUCINEX) 600 MG TAB PO SCH (08:10)
[2019-09-22] MEDS: OXYBUTYNIN (DITROPAN) 5 MG TAB PO SCH ×2 (08:10→20:48)
[2019-09-22] MEDS: SENNA W/DOCUSATE (SENOKOT S) TABLET PO SCH (08:10)
[2019-09-22] MEDS: LEVETIRACETAM 500 MG (KEPPRA) TAB PO SCH ×2 (08:11→20:50)
[2019-09-22] MEDS: SODIUM CHLORIDE 1 GM TABLET PO SCH ×2 (08:12→20:49)
[2019-09-22] MEDS: polyethylene glycoL POWDER 17 GM (MIRALAX) PACK PO SCH ×2 (08:13→20:50)
[2019-09-22] MEDS: ENOXAPARIN 30 MG/0.3 ML (LOVENOX) SYR SC SCH ×2 (08:18→20:50)
[2019-09-22] MEDS: FLUTICASONE NASAL SPRAY (FLONASE) 16 GM BTL NS SCH (08:26)
[2019-09-22] MEDS: MUPIROCIN 2% OINT 22 GM (BACTROBAN) TUBE TOP SCH ×2 (08:26→20:51)
[2019-09-22] MEDS: LEVOFLOXACIN 250 MG/D5W 50 ML (PRE-MIX) IV SCH (08:41)
--- NOTE | 2019-09-22 09:45 | NUR ---
CM/SS CONCURRENT DOCUMENTATION Referral initiated with [facility] for patient and included exploration for Mr. Olvera as well regarding his care needs.
--- NOTE | 2019-09-22 10:20 | Physical Therapy Daily Note ---
PT Daily Note-Current Subjective Pt laying Supine in bed upon arrival. Pt is still NISQUALLY but has moments when she hears better, using dry [employer] board for communication. Pain Pain Description: Ache Comment: Pt reports Fibromyalgia pain throughout body, not rated. Mental Status Patient Orientation: Person, Confused Transfers SCALE: Activities may be completed with or without assistive devices. 5-Thymlofbli-fmzdacf completes the activity by him/herself with no assistance from a helper. 5-Set-up or Clean-up Assistance-helper sets up or cleans up; patient completes activity. [place] assists only prior to or following the activity. 4-Supervision or Touching Assistance-helper provides verbal cues and/or touching/steadying and/or contact guard assistance as patient completes activity. Assistance may be provided throughout the activity or intermittently. 3-Partial/Moderate Assistance-helper does LESS THAN HALF the effort. [place] lifts, holds or supports trunk or limbs, but provides less than half the effort. 2-Substantial/Maximal Assistance-helper does MORE THAN HALF the effort. [place] l ifts or holds trunk or limbs and provides more than half the effort. 8-Bizaxsyky-vjsupo does ALL the effort. Patient does none of the effort to complete the activity. Or, the assistance of 2 or more helpers is required for the patient to complete the activity. If activity was not attempted, code reason: 7-Patient Refused. 9-Not Applicable-not attempted and the patient did not perform the activity before the current illness, exacerbation or injury. 10-Not Attempted due to Environmental Limitations-(lack of equipment, weather restraints, etc.). 88-Not Attempted due to Medical Conditions or Safety Concerns. Sit to Lying (QC): 2 Lying to Sitting/Side of Bed(Q: 2 Sit to Stand (QC): 1 Chair/Wad-to-Dbdqo Xfer(QC): 1 Toilet Transfer (QC): 1 Weight Bearing Right Lower Extremity: Right Non Weight Bearing Left Lower Extremity: Left Full Weight Bearing Wheelchair Training Does the Pt Use a Wheelchair?: Yes Wheel 50 ft with 2 turns (QC): 4 Type of Wheelchair: Manual Pt needs occasional Phy. & VC to stay on task. Exercises Supine Ex: Ankle pumps, Quad Set, Glut sets, Heel Slides, Straight leg raise, Hip abd/add Supine Reps: 15 (2 sets of 15 reps) Treatments Pt completes Supine Ex in bed before OT arrives for Co-treat. Pt transfers from Supine to EOB to BSC via SPT. Pt tries for BM with no success. Pt reports pain with R LE so Slide board and blanket used to cushion to extend leg for comfort. Pt then transfers to [facility] for propelling in hallway towards Therapy Gym. OT continues Rx as MS SQL SERVER DEVELOPER departs. PT works on LE strengthening, transfers & WCH mobility while OT works on trunk control and hand placement during tasks. Assessment Current Status: Fair Progress Pt reports pain that limits participation in Rx. PT Short Term Goals Short Term Goals Time Frame: Sep 26, 2019 Roll Left & Right: 2 Sit to lyin Lying to sitting on side of be: 2 Sit to stand: 2 Chair/gxj-nr-hougf transfer: 2 PT Head Swamper Goals Half-Way Goals PT Head Swamper Goals Time Frame: Oct 10, 2019 Roll Left & Right (QC): 3 Sit to Lying (QC): 3 Lying-Sitting on Side/Bed(QC): 3 Sit to Stand (QC): 3 Chair/Lku-jm-Ecmal Xfer(QC): 3 Toilet Transfer (QC): 3 Car Transfer (QC): 3 Does the Patient Walk: No and Walking Goal NOT indicated Walk 10 feet (QC): 88 Walk 50ft with 2 Turns (QC): 88 Walk 150 ft (QC): 88 Walking 10ft on Uneven Surface: 88 1 Step (curb) (QC): 88 4 Steps (QC): 88 12 Steps (QC): 88 Picking up an Object (QC): 88 Wheel 50 feet with 2 turns (QC: 4 Wheel 150 feet: 4 PT Plan Problem List Problem List: Activity Tolerance, Functional Strength, Safety, Balance, Transfer Treatment/Plan Treatment Plan: Continue Plan of Care Treatment Plan: Bed Mobility, Education, Functional Activity Za, Functional Strength, Group Therapy, Gait, Safety, Therapeutic Exercise, Transfers Treatment Duration: Oct 10, 2019 Frequency: At least 5 of 7 days/Wk (IRF) Estimated Hrs Per Day: 1.5 hours per day Patient and/or Family Agrees t: Yes Safety Risks/Education Patient Education: Transfer Techniques, Correct Positioning, Safety Issues Teaching Recipient: Patient Teaching Methods: Discussion Response to Teaching: Reinforcement Needed Time/GCodes Time In: 920 Time Out: 1015 Total Billed Treatment Time: 55 Total Billed Treatment 1, EX (20m), FA x2 (25m), WCH (10m) Co-treat with OT for 45m ([phone]) DEE MADRID MS SQL SERVER DEVELOPER Sep 22, 2019 10:20
--- NOTE | 2019-09-22 10:29 | NUR ---
AIR MATTRESS MOVED TO ROOM.
--- NOTE | 2019-09-22 11:39 | Occupational Ther Daily Note ---
OT Current Status-Daily Note Subjective Pt. reports pain all over, but does not state pain level. Pt. has had pain medication. Appearance Pt. in bed doing bed exercises with PT when OT enters room. Mental Status/Objective Patient Orientation: Unable to Assess ADL-Treatment Therapy Code Descriptions/Definitions Functional [place] Measure: 0=Not Assessed/NA 4=Minimal Assistance 1=Total Assistance 5=Supervision or Setup 2=Maximal Assistance 6=Modified [place] 3=Moderate Assistance 7=Complete IndependenceSCALE: Activities may be completed with or without assistive devices. 3-Pckmtdptcd-qcvxard completes the activity by him/herself with no assistance from a helper. 5-Set-up or Clean-up Assistance-helper sets up or cleans up; patient completes activity. [place] assists only prior to or following the activity. 4-Supervision or Touching Assistance-helper provides verbal cues and/or touching/steadying and/or contact guard assistance as patient completes activity. Assistance may be provided throughout the activity or intermittently. 3-Partial/Moderate Assistance-helper does LESS THAN HALF the effort. [place] lifts, holds or supports trunk or limbs, but provides less than half the effort. 2-Substantial/Maximal Assistance-helper does MORE THAN HALF the effort. [place] lifts or holds trunk or limbs and provides more than half the effort. 2-Axqsisfwo-tjkgjg does ALL the effort. Patient does none of the effort to complete the activity. Or, the assistance of 2 or more helpers is required for the patient to complete the activity. If activity was not attempted, code reason: 7-Patient Refused. 9-Not Applicable-not attempted and the patient did not perform the activity before the current illness, exacerbation or injury. 10-Not Attempted due to Environmental Limitations-(lack of equipment, weather restraints, etc.). 88-Not Attempted due to Medical Conditions or Safety Concerns. Oral Hygiene (QC): 5 (Set up to floss teeth repeatedly.) On/Off Footwear: 1 Toileting Hygiene (QC): 1 Toilet Transfer (QC): 1 Other Treatment OT/PT co-treated due to need of skilled assist x 2. PT focused on LE exercises and transfers while OT assisted with transfers, and facilitated ADL skills, as well as UE movement. Pt. is using director of public relations in teeth when OT enters. PT reports pt. has been doing this the whole time she has been participating in bed exerci ses. When OT asks if she can put director of public relations on table, pt. becomes worried she will lose it. Pt. transfers supine-sit with max x 2. Pt. begins to cry when she understands that she will be moved. Therapy gently attempts to comfort and re- direct her. Pt. is very concerned about not having a BM. States that she has not had one in 7 days. However, nursing reported yesterday that pt. had massive BM. Pt. told this but does not believe therapist. Pt. agrees to try and sit on BSC. Transfers to BSC with dependent assistance x 1-2. Pillow placed behind. Pt. is tearful that she doesnt know if she can go or not. Pt. is able to urinate somewhat, and is transferred to wheelchair with dependent x 2. Pt. encouraged to attempt self propelling, and is able to do small amount. In therapy gym, pt. is given therapy peg activity for fine motor strength and reach. Pt. is tearful throughout, and will close eyes. Requires cues to keep eyes open and to keep participating. Pt. is able to put 4 pegs into peg holes, but stops activity. Taken back to room. Transferred to bed with dependent assist x 2. All needs met. Education OT Patient Education: Correct positioning, Exercise program, Modified ADL techniques, Progress toward Goal/Update tx plan, Purpose of tx/functional activities, Reviewed precautions, Rehab process, Transfer techniques Teaching Recipient: Patient Teaching Methods: Demonstration, Discussion Response to Teaching: Unable to Comprehend, Reinforcement Needed OT Short Term Goals Short Term Goals Time Frame: Sep 26, 2019 Eatin (Min assist) Oral hygiene: 3 (Min assist) Toileting hygiene: 2 Shower/bathe self: 3 (Mod assist) Upper body dressin (Mod) Lower body dressin Putting on/taking off footwear: 2 OT Prosthodontist/Owner Goals Skilled Nursing Goals Time Frame: Oct 10, 2019 Eating (QC): 4 Oral Hygiene (QC): 4 Toileting Hygiene (QC): 3 (Min) Shower/Bathe Self (QC): 3 (min) Upper Body Dressing (QC): 3 (Min) Lower Body Dressing (QC): 3 (Min) On/Off Footwear (QC): 3 (MIn) Additional Goals: 1-Demonstrate ADL Tasks, 2-Verbalize Understanding, 3- ImproveStrength/Za 1=Demonstrate adherence to instructed precautions during ADL tasks. 2=Patient will verbalize/demonstrate understanding of assistive devices/modifications for ADL. 3=Patient will improve strength/tolerance for activity to enable patient to perform ADL's. OT Education/Plan Problem List/Assessment Assessment: Decreased Activ Tolerance, Decreased UE Strength, Dependent Transfers, Impaired Bed Mobility, Impaired Cognition, Impaired Coordination, Impaired Funct Balance, Impaired I ADL's, Impaired Self-Care Skills, Restricted Funct UE ROM Discharge Recommendations Plan/Recommendations: Continue POC Therapy Discharge Recommendati: 24 Hour Supervision Treatment Plan/Plan of Care Treatment,Training & Education: Yes Patient would benefit from OT for education, treatment and training to promote independence in ADL's, mobility, safety and/or upper extremity function for ADL's. Plan of Care: ADL Retraining, Caregiver Training, Functional Mobility, Group Exercise/Act as Ind, UE Funct Exercise/Act Treatment Duration: Oct 10, 2019 Frequency: At least 5 of 7 days/Wk (IRF) Estimated Hrs Per Day: 1.5 hours per day Agreement: Yes Rehab Potential: Guarded Time/GCodes Start Time: 09:45 Stop Time: 10:30 Total Time Billed (hr/min): 45 Billed Treatment Time 4382-9887 1, ADL x 15, FA x 15 (Co-treat with PT. Please see above note for designated roles.) [id number] FA x 15minutes TERESE REYNOSO OT Sep 22, 2019 11:39
--- NOTE | 2019-09-22 11:41 | NUR ---
PATIENT REQUESTING SALINE NASAL SPRAY PRIOR TO FLONASE. DR. MEYER NOTIFIED AND OK WITH OCEAN NASAL SPRAY DAILY.
--- NOTE | 2019-09-22 13:23 | Physical Therapy Daily Note ---
PT Daily Note-Current Subjective Pt sitting up in bed upon arrival. Pt is still eating lunch and Nurse is reapplying dressings. Pt agrees to PT. Pain Comment: Pt reports pain but not rated. Mental Status Patient Orientation: Person, Confused Transfers SCALE: Activities may be completed with or without assistive devices. 9-Lartrbxfoc-pxnjsuk completes the activity by him/herself with no assistance from a helper. 5-Set-up or Clean-up Assistance-helper sets up or cleans up; patient completes activity. [place] assists only prior to or following the activity. 4-Supervision or Touching Assistance-helper provides verbal cues and/or touching/steadying and/or contact guard assistance as patient completes activity. Assistance may be provided throughout the activity or intermittently. 3-Partial/Moderate Assistance-helper does LESS THAN HALF the effort. [place] lifts, holds or supports trunk or limbs, but provides less than half the effort. 2-Substantial/Maximal Assistance-helper does MORE THAN HALF the effort. [place] lifts or holds trunk or limbs and provides more than half the effort. 8-Ovidzpwhc-ipzkmj does ALL the effort. Patient does none of the effort to complete the activity. Or, the assistance of 2 or more helpers is required for the patient to complete the activity. If activity was not attempted, code reason: 7-Patient Refused. 9-Not Applicable-not attempted and the patient did not perform the activity before the current illness, exacerbation or injury. 10-Not Attempted due to Environmental Limitations-(lack of equipment, weather restraints, etc.). 88-Not Attempted due to Medical Conditions or Safety Concerns. Weight Bearing Right Lower Extremity: Right Non Weight Bearing Left Lower Extremity: Left Full Weight Bearing Exercises Supine Ex: Quad Set, Glut sets, Heel Slides, Straight leg raise, Hip abd/add Supine Reps: 15 Treatments Pt finishing lunch and dressing reapplied by Nurse so SUPERVISOR WASH HOUSE will return after pt finished lunch. Pt completes LE with RB as needed. Pt resting at end of Rx with all needs met, call light in hand. Assessment Current Status: Fair Progress Pt is easily distracted and keeps VC to stay on task. Pt's pain limits participation with Ex. PT Short Term Goals Short Term Goals Time Frame: Sep 26, 2019 Roll Left & Right: 2 Sit to lyin Lying to sitting on side of be: 2 Sit to stand: 2 Chair/cgn-qm-tkmhc transfer: 2 PT Medical Technologist Chemistry Goals Medical Technologist Chemistry Goals PT Group Home Goals Time Frame: Oct 10, 2019 Roll Left & Right (QC): 3 Sit to Lying (QC): 3 Lying-Sitting on Side/Bed(QC): 3 Sit to Stand (QC): 3 Chair/Ktw-hs-Qusod Xfer(QC): 3 Toilet Transfer (QC): 3 Car Transfer (QC): 3 Does the Patient Walk: No and Walking Goal NOT indicated Walk 10 feet (QC): 88 Walk 50ft with 2 Turns (QC): 88 Walk 150 ft (QC): 88 Walking 10ft on Uneven Surface: 88 1 Step (curb) (QC): 88 4 Steps (QC): 88 12 Steps (QC): 88 Picking up an Object (QC): 88 Wheel 50 feet with 2 turns (QC: 4 Wheel 150 feet: 4 PT Plan Problem List Problem List: Activity Tolerance, Functional Strength, Safety, Bed Mobility, ROM Treatment/Plan Treatment Plan: Continue Plan of Care Treatment Plan: Bed Mobility, Education, Functional Activity Za, Functional Strength, Group Therapy, Gait, Safety, Therapeutic Exercise, Transfers Treatment Duration: Oct 10, 2019 Frequency: At least 5 of 7 days/Wk (IRF) Estimated Hrs Per Day: 1.5 hours per day Patient and/or Family Agrees t: Yes Safety Risks/Education Patient Education: Correct Positioning, Safety Issues Teaching Recipient: Patient Teaching Methods: Discussion Response to Teaching: Reinforcement Needed Time/GCodes Time In: 1310 Time Out: 1320 Total Billed Treatment Time: 10 Total Billed Treatment 1, EX x2 (30m) Start at 4277-1473 & [id number] DEE MADRID SUPERVISOR WASH HOUSE Sep 22, 2019 13:23
--- NOTE | 2019-09-22 13:25 | Progress Note ---
Subjective Date Seen by a Provider: Sep 22, 2019 Time Seen by a Provider: 13:00 Subjective/Events-last exam Patient seen with Dr. Thomas. Patient doing well. Does report that her right leg is hurting. RN and at bedside and reports patient is due for pain medications. Right BKA dressing in place. Patient reports have significant BM yesterday. Denies any fever/chills. Tolerating diet. Focused Exam Lactate Level 09/20/19 12:10: Lactic Acid Level 0.83 Objective Exam Vital Signs Date Time Temp Pulse Resp B/P (MAP) Pulse Ox O2 Delivery O2 Flow Rate FiO2 09/22/19 08:58 Room Air 09/22/19 06:00 36.9 92 18 170/80 (110) 98 Room Air 09/21/19 21:00 Room Air 09/21/19 17:13 37.2 73 18 155/70 (98) 99 Room Air I & O 09/22/19 07:00 Intake Total 1600 ml Output Total 625 ml Balance 975 ml Capillary Refill : Less Than 3 Seconds General Appearance: No Apparent Distress, WD/WN Neck: Full Range of Motion, Normal Inspection Respiratory: Normal Breath Sounds, No Accessory Muscle Use, No Respiratory Distress Cardiovascular: Regular Rate, Rhythm, No Edema Gastrointestinal: normal bowel sounds, non tender, soft Extremity: Slow Capillary Refill, Other (Right BKA dressing removed and incision is healing with no redness, erythema, or drainge noted. Tender to palpation. Redressed by RN.) Neurologic/Psychiatric: Alert, Normal Mood/Affect Assessment/Plan Assessment/Plan Assess & Plan/Chief 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 cont therapies. Continue oral pain medication as needed. Continue splint to prevent contracture. Clinical Quality Measures DVT/VTE Risk/Contraindication: Risk Factor Score Per Nursin RFS Level Per Nursing on Admit: 4+=Very High EVE ARCE FLAVOR EXTRACTOR Sep 22, 2019 13:25
--- NOTE | 2019-09-22 14:02 | Speech Therapy Daily Note ---
Speech Daily Progress Note Subjective Date Seen by Provider: Sep 22, 2019 Time Seen by Provider: 00:30 Patient had just returned to her bed from OT. She was c/o pain throughout the session. Patient was able to recall 's visit yesterday. Objective Patient completed a series of q/a related to daily needs at 80% with minimal cues. Assessment Assessment Current Status: Good Progress Treatment Plan Continue Plan of Care Speech Short Term Goals Short Term Goals Short Term Goals 1) Patient will complete memory tasks related to her daily needs at 80% with minimal cues. 2) Patient will complete safety awareness tasks related to her daily needs at 80% with minimal cues. 3) Patient will complete problem solving tasks related to her daily needs at 80% with minimal cues. Speech Detention Goals Fork Truck Driver Goals Patient will improve cognitive-communication necessary for safety and daily living tasks with minimal assist. Speech-Plan Patient/Family Goals Patient/Family Goals: Patient will be discharging to SNF next week. Treatment Plan Speech Therapy Treatment Plan: Continue Plan of Care Treatment Duration: Sep 30, 2019 Frequency: 5 times per week Estimated Hrs Per Day: .5 hour per day Rehab Potential: Guarded Barriers to Learning: Patient's medical status, pain meds and cognitive deficits Pt/Family Agrees to Plan: Yes Safety Risks/Education Teaching Recipient: Patient Teaching Methods: Demonstration, Discussion Response to Teaching: Verbalize Understanding, Return Demonstration Education Topics Provided: Continued safety and communication of wants/needs Time Speech Therapy Time In: 10:30 Speech Therapy Time Out: 11:00 Total Billed Time: 30 Billed Treatment Time 1, JUAN ALBERTO Alfaro Sep 22, 2019 14:02
--- NOTE | 2019-09-22 14:09 | Occupational Ther Daily Note ---
OT Current Status-Daily Note Subjective Pt. reports pain in right residual limb, and states that her "foot" on that side hurts. Pt. does not report pain level and has had pain medication. Leg is re- adjusted for her. Appearance Pt. seen twice this p.m. Pt. in bed for both treatments. Mental Status/Objective Patient Orientation: Unable to Assess ADL-Treatment Therapy Code Descriptions/Definitions Functional [place] Measure: 0=Not Assessed/NA 4=Minimal Assistance 1=Total Assistance 5=Supervision or Setup 2=Maximal Assistance 6=Modified [place] 3=Moderate Assistance 7=Complete IndependenceSCALE: Activities may be completed with or without assistive devices. 2-Olbrsrjprk-bxqanvc completes the activity by him/herself with no assistance from a helper. 5-Set-up or Clean-up Assistance-helper sets up or cleans up; patient completes activity. [place] assists only prior to or following the activity. 4-Supervision or Touching Assistance-helper provides verbal cues and/or touching/steadying and/or contact guard assistance as patient completes activity. Assistance may be provided throughout the activity or intermittently. 3-Partial/Moderate Assistance-helper does LESS THAN HALF the effort. [place] lifts, holds or supports trunk or limbs, but provides less than half the effort. 2-Substantial/Maximal Assistance-helper does MORE THAN HALF the effort. [place] lifts or holds trunk or limbs and provides more than half the effort. 9-Evgnwsktr-fwdmje does ALL the effort. Patient does none of the effort to complete the activity. Or, the assistance of 2 or more helpers is required for the patient to complete the activity. If activity was not attempted, code reason: 7-Patient Refused. 9-Not Applicable-not attempted and the patient did not perform the activity before the current illness, exacerbation or injury. 10-Not Attempted due to Environmental Limitations-(lack of equipment, weather restraints, etc.). 88-Not Attempted due to Medical Conditions or Safety Concerns. Eating (QC): 5 (Set up) Other Treatment Pt. in bed at first attempt. Pt. eating her potatoes that were on the tray. Pt. indicates, "I eat slow." Pt. requires right residual limb to be re-dressed. OT places potato bowl in hand and pt. continues to feed self while OT assists with positioning of limb for nursing to dress wound. Pt. requests more time to eat and so OT comes back later. When OT enters 15 minutes later, pt. in bed wit h food on tray, and she is sleeping. She is able to wake up and participates with increased time and cues in bilateral UE exercise. Pt. participates with yellow theraband and therapy sponge for increased UE strength/endurance. Pt. will often get sidetracked with task and requires cues to continue. Pt. participates in pectoral stretch, and tricep extension to her tolerance level. Multiple reps noted with increased time. Pt. indicates pain in right LE and becomes anxious when OT engages her in exercises. However, she is able to be re-directed while doing exercises if she is able to talk about books that she has read. All needs met in room. Education OT Patient Education: Correct positioning, Exercise program, Modified ADL techniques, Progress toward Goal/Update tx plan, Purpose of tx/functional activities, Reviewed precautions, Rehab process, Transfer techniques Teaching Recipient: Patient Teaching Methods: Demonstration, Discussion Response to Teaching: Verbalize Understanding, Return Demonstration OT Short Term Goals Short Term Goals Time Frame: Sep 26, 2019 Eatin (Min assist) Oral hygiene: 3 (Min assist) Toileting hygiene: 2 Shower/bathe self: 3 (Mod assist) Upper body dressin (Mod) Lower body dressin Putting on/taking off footwear: 2 OT Patient Coordinator Goals Patient Coordinator Goals Time Frame: Oct 10, 2019 Eating (QC): 4 Oral Hygiene (QC): 4 Toileting Hygiene (QC): 3 (Min) Shower/Bathe Self (QC): 3 (min) Upper Body Dressing (QC): 3 (Min) Lower Body Dressing (QC): 3 (Min) On/Off Footwear (QC): 3 (MIn) Additional Goals: 1-Demonstrate ADL Tasks, 2-Verbalize Understanding, 3- ImproveStrength/Za 1=Demonstrate adherence to instructed precautions during ADL tasks. 2=Patient will verbalize/demonstrate understanding of assistive devices/modifications for ADL. 3=Patient will improve strength/tolerance for activity to enable patient to perform ADL's. OT Education/Plan Problem List/Assessment Assessment: Decreased Activ Tolerance, Decreased Safety Aware, Decreased UE Strength, Dependent Transfers, Impaired Bed Mobility, Impaired Cognition, Impaired Coordination, Impaired Funct Balance, Impaired I ADL's, Impaired Self- Care Skills, Restricted Funct UE ROM Discharge Recommendations Plan/Recommendations: Continue POC Therapy Discharge Recommendati: 24 Hour Supervision Barriers to Progress Anxiety and reluctance to participate. Treatment Plan/Plan of Care Treatment,Training & Education: Yes Patient would benefit from OT for education, treatment and training to promote independence in ADL's, mobility, safety and/or upper extremity function for ADL's. Plan of Care: ADL Retraining, Caregiver Training, Functional Mobility, Group Exercise/Act as Ind, UE Funct Exercise/Act Treatment Duration: Oct 10, 2019 Frequency: At least 5 of 7 days/Wk (IRF) Estimated Hrs Per Day: 1.5 hours per day Agreement: Yes Rehab Potential: Guarded Time/GCodes Start Time: 13:10 Stop Time: 13:55 Total Time Billed (hr/min): 30 Billed Treatment Time 3600-6548 1, FA x 10minutes 8430-3748 1, Ex x 20minutes TERESE REYNOSO OT Sep 22, 2019 14:09
--- NOTE | 2019-09-22 14:27 | NUR ---
EVE ARCE AND DR. CLEMENTE HAVE BEEN IN TO SEE PATIENT. EVE ARCE ASSESSED RIGHT BKA INCISION. AWARE THAT SPLINT IS NOT ON D/T CAUSING PRESSURE AREA ON RIGHT KNEE. INCISION IS WELL APPROXIMATED WITH CAT INTACT. MINIMAL AMOUNT OF SEROSANGUINEOUS DRAINAGE NOTED. INCISION LINE CLEANSED WITH ALCOHOL PADS. COVERED WITH GAUZE AND ABD. WRAPPED WITH KERLIX AND DALTON WRAP. EVE ARCE ALSO ASSESSED LEFT HEEL... RED AND MUSHY. NO OPEN AREAS NOTED. ALLEVYN HEEL PROTECTOR IN PLACE AND PILLOW UNDER HEEL.
[2019-09-22 16:16] VITALS: BP 135/77
[2019-09-22] MEDS: SERTRALINE 50 MG (ZOLOFT) TABLET PO SCH (20:50)
[2019-09-22] MEDS: SIMvastatin 20 MG (ZOCOR) TAB PO SCH (20:50)
[2019-09-23] MEDS: ONDANSETRON 4 MG (ZOFRAN) ORAL DISSOLVE TAB PO PRN ×2 (02:22→14:20)
[2019-09-23] MEDS: ALPRAZolam 0.25 MG (XANAX) TAB PO PRN (02:26)
[2019-09-23 05:27] VITALS: BP 176/85
[2019-09-23] MEDS: LEVOTHYROXINE 50 MCG (LEVOTHROID) TAB PO SCH (06:06)
--- NOTE | 2019-09-23 06:24 | PM&R Progress Note ---
Subjective HPI/CC On Admission Date Seen by Provider: Sep 23, 2019 Time Seen by Provider: 12:00 Subjective/Events-last exam No major changes Dr. Thomas is monitoring the wound Levaquin last dose yesterday Receiving saline nasal spray as she takes at home Denies any other significant issues Dementia and hard of hearing makes it very difficult and she has behaviors related to dementia Needs skilled care Checked meds and labs Conferred with RN Reviewed therapy notes Review of Systems General: Fatigue Musculoskeletal: leg pain Neurological: Confusion Focused Exam Lactate Level Objective Exam Vital Signs Vital Signs Date Time Temp Pulse Resp B/P (MAP) Pulse Ox O2 Delivery O2 Flow Rate FiO2 09/23/19 09:00 Room Air 09/23/19 05:27 37.4 92 18 176/85 (115) 100 Capillary Refill : Less Than 3 Seconds General Appearance: WD/WN, Anxious, Chronically ill, Mild Distress (due to pain right leg amputation site) HEENT: PERRL/EOMI, Normal ENT Inspection, Pharynx Normal Neck: Full Range of Motion, Normal Inspection, Non Tender, Supple, Carotid Bruit Respiratory: Chest Non Tender, Lungs Clear, No Accessory Muscle Use, No Respiratory Distress, Decreased Breath Sounds Cardiovascular: Regular Rate, Rhythm, No Edema, No Gallop, No JVD, No Murmur, Normal Peripheral Pulses Gastrointestinal: Normal Bowel Sounds, No Organomegaly, No Pulsatile Mass, Non Tender, Soft Back: Normal Inspection, No CVA Tenderness, No Vertebral Tenderness Extremity: Normal Capillary Refill, Normal Inspection, Normal Range of Motion, Non Tender, No Calf Tenderness, No Pedal Edema, Other (right leg BKA surgical site with dressing intact) Neurologic/Psychiatric: Alert, No Motor/Sensory Deficits, Normal Mood/Affect, Disoriented, Other ([place]) Skin: Normal Color, Warm/Dry Lymphatic: No Adenopathy Results/Procedures Lab Patient resulted labs reviewed. FIM Transfers Therapy Code Descriptions/Definitions Functional [place] Measure: 0=Not Assessed/NA 4=Minimal Assistance 1=Total Assistance 5=Supervision or Setup 2=Maximal Assistance 6=Modified [place] 3=Moderate Assistance 7=Complete IndependenceSCALE: Activities may be completed with or without assistive devices. 7-Dwgyzngwaf-dhxmadn completes the activity by him/herself with no assistance from a helper. 5-Set-up or Clean-up Assistance-helper sets up or cleans up; patient completes activity. [place] assists only prior to or following the activity. 4-Supervision or Touching Assistance-helper provides verbal cues and/or touching/steadying and/or contact guard assistance as patient completes activity. Assistance may be provided throughout the activity or intermittently. 3-Partial/Moderate Assistance-helper does LESS THAN HALF the effort. [place] lifts, holds or supports trunk or limbs, but provides less than half the effort. 2-Substantial/Maximal Assistance-helper does MORE THAN HALF the effort. [place] lifts or holds trunk or limbs and provides more than half the effort. 7-Narejndvs-kdzqri does ALL the effort. Patient does none of the effort to complete the activity. Or, the assistance of 2 or more helpers is required for the patient to complete the activity. If activity was not attempted, code reason: 7-Patient Refused. 9-Not Applicable-not attempted and the patient did not perform the activity before the current illness, exacerbation or injury. 10-Not Attempted due to Environmental Limitations-(lack of equipment, weather restraints, etc.). 88-Not Attempted due to Medical Conditions or Safety Concerns. Roll Left to Right (QC): 2 Sit to Lying (QC): 2 Sit to Stand (QC): 1 Chair/Nah-hw-Aqvlc Xfer(QC): 1 Car Transfer (QC): 1 Gait Training Does the Patient Walk?: No and Walking Goal NOT indicated Walk 10 feet (QC): 88 Walk 50 ft with 2 Turns(QC): 88 Walk 150 ft (QC): 88 Walking 10ft/uneven surface-QC: 88 Wheelchair Training Does the Pt Use a Wheelchair?: Yes Wheel 50 ft with 2 turns (QC): 4 Wheel 150 ft (QC): 2 Type of Wheelchair: Manual Stair Training 1 Step (curb) (QC): 88 4 Steps (QC): 8 12 Steps (QC): 8 Balance Picking up an Object (QC): 88 ADL-Treatment Eating (QC): 5 (Set up) Oral Hygiene (QC): 5 (Set up to floss teeth repeatedly.) Shower/Bathe Self (QC): 2 (Pt. able to wash face and chest, as well as arms at bed level. 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 unsuccessful in revascularization at [facility] and [facility] Hyperkalemia-resolved Hyponatremia placed on fluid restriction and salt tablets baseline 131 Leukocytosis likely reactive no infection found on w/u- stable Coronary artery disease Hyperlipidemia Hypothyroidism Seizure disorder especially when hyponatremia worsens per son Seasonal allergies GERD Depression Bladder spasms DVT prophylaxis: Lovenox Plan: IRF protocol DC Fentanyl DRILL BIT SHARPENER PO pain meds Dementia will slow recovery Fall risk Sundowning risk Needs usp failing rehab (1) S/P BKA (below knee amputation) Status: Acute (2) Leukocytosis Status: Acute (3) Hyponatremia Status: Chronic (4) Hyperkalemia Status: Resolved Resolution Date/Time: 09/17/19 @ 10:20 (5) Peripheral vascular disease (6) Intermittent atrial fibrillation Status: Acute (7) Seizure disorder (8) Hypothyroidism (9) Overactive bladder (10) Hyperlipemia (11) Hypertension (12) Dementia (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
[2019-09-23] MEDS: SODIUM CHLORIDE 1 GM TABLET PO SCH ×2 (09:34→21:00)
[2019-09-23] MEDS: PANTOPRAZOLE 40 MG (PROTONIX) TAB PO SCH ×2 (09:34→21:00)
[2019-09-23] MEDS: DOCUSATE SODIUM 100 MG (COLACE) CAP PO SCH (09:35)
[2019-09-23] MEDS: ASPIRIN E.C. 81 MG (ECOTRIN) TAB PO SCH (09:35)
[2019-09-23] MEDS: RANOLAZINE ER 500 MG TAB (RANEXA) PO SCH ×2 (09:35→21:00)
[2019-09-23] MEDS: guaiFENesin (MUCINEX) 600 MG TAB PO SCH (09:35)
[2019-09-23] MEDS: OXYBUTYNIN (DITROPAN) 5 MG TAB PO SCH ×2 (09:36→21:00)
[2019-09-23] MEDS: SENNA W/DOCUSATE (SENOKOT S) TABLET PO SCH (09:36)
[2019-09-23] MEDS: LORATADINE (CLARITIN) 10 MG TAB PO SCH (09:36)
[2019-09-23] MEDS: LEVETIRACETAM 500 MG (KEPPRA) TAB PO SCH ×2 (09:36→21:00)
[2019-09-23] MEDS: SALINE NASAL SPRAY (OCEAN) 45 ML BTL SCH (09:37)
[2019-09-23] MEDS: ENOXAPARIN 30 MG/0.3 ML (LOVENOX) SYR SC SCH ×2 (09:37→21:00)
[2019-09-23] MEDS: FLUTICASONE NASAL SPRAY (FLONASE) 16 GM BTL NS SCH (09:38)
[2019-09-23] MEDS: polyethylene glycoL POWDER 17 GM (MIRALAX) PACK PO SCH ×2 (09:42→21:00)
[2019-09-23] MEDS: MUPIROCIN 2% OINT 22 GM (BACTROBAN) TUBE TOP SCH ×2 (09:42→21:00)
[2019-09-23] MEDS: LEVOFLOXACIN 250 MG/D5W 50 ML (PRE-MIX) IV SCH (09:43)
--- NOTE | 2019-09-23 10:38 | Progress Note ---
Subjective Date Seen by a Provider: Sep 23, 2019 Time Seen by a Provider: 10:00 Subjective/Events-last exam doing well. tolerating diet and progressing with therapies. no fever/chills. Focused Exam Lactate Level 09/20/19 12:10: Lactic Acid Level 0.83 Objective Exam Vital Signs Date Time Temp Pulse Resp B/P (MAP) Pulse Ox O2 Delivery O2 Flow Rate FiO2 09/23/19 05:27 37.4 92 18 176/85 (115) 100 Room Air 09/22/19 21:00 Room Air 09/22/19 17:51 Room Air 09/22/19 16:16 36.5 89 14 135/77 (96) 100 Room Air I & O 09/23/19 07:00 Intake Total 1360 ml Output Total 700 ml Balance 660 ml Capillary Refill : Less Than 3 Seconds General Appearance: No Apparent Distress HEENT: PERRL/EOMI Neck: Full Range of Motion Respiratory: Chest Non Tender, Lungs Clear Cardiovascular: Regular Rate, Rhythm Gastrointestinal: normal bowel sounds, non tender, soft Extremity: Slow Capillary Refill, Other (wound clean/dry) Neurologic/Psychiatric: Alert, Oriented x3 Skin: Normal Color Lymphatic: No Adenopathy Assessment/Plan Assessment/Plan Assess & Plan/Chief 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 cont therapies. will take down dressing however cont splint to prevent contracture. Clinical Quality Measures DVT/VTE Risk/Contraindication: Risk Factor Score Per Nursin RFS Level Per Nursing on Admit: 4+=Very High ERICH CLEMENTE MD Sep 23, 2019 10:38
--- NOTE | 2019-09-23 11:03 | Physical Therapy Daily Note ---
PT Daily Note-Current Subjective Pt presents supine in bed upon arrival to room, agreeable to therapy at this time. Pt requires use of whiteboard, as she is hard of hearing. Pt states multiple times that she is depressed of being in the hospital. Pain Comment: Pt moans and grimaces in pain, but doesnt rate. Appearance Following treatment, pt sitting in chair with LEs elevated. Call light and tray within reach, no further needs at this time Mental Status Patient Orientation: Person, Time, Situation Transfers SCALE: Activities may be completed with or without assistive devices. 4-Ecsefctubh-zlfgkck completes the activity by him/herself with no assistance from a helper. 5-Set-up or Clean-up Assistance-helper sets up or cleans up; patient completes activity. [place] assists only prior to or following the activity. 4-Supervision or Touching Assistance-helper provides verbal cues and/or touching/steadying and/or contact guard assistance as patient completes activity. Assistance may be provided throughout the activity or intermittently. 3-Partial/Moderate Assistance-helper does LESS THAN HALF the effort. [place] lifts, holds or supports trunk or limbs, but provides less than half the effort. 2-Substantial/Maximal Assistance-helper does MORE THAN HALF the effort. [place] lifts or holds trunk or limbs and provides more than half the effort. 9-Reznifzsg-sqkwcr does ALL the effort. Patient does none of the effort to complete the activity. Or, the assistance of 2 or more helpers is required for the patient to complete the activity. If activity was not attempted, code reason: 7-Patient Refused. 9-Not Applicable-not attempted and the patient did not perform the activity before the current illness, exacerbation or injury. 10-Not Attempted due to Environmental Limitations-(lack of equipment, weather restraints, etc.). 88-Not Attempted due to Medical Conditions or Safety Concerns. Roll Left & Right (QC): 2 (Able to initiate rolling to R, but dependent rolling to L ) Lying to Sitting/Side of Bed(Q: 1 Chair/Uzs-yr-Upjus Xfer(QC): 1 Weight Bearing Right Lower Extremity: Right Non Weight Bearing Left Lower Extremity: Left Full Weight Bearing Wheelchair Training Does the Pt Use a Wheelchair?: Yes Wheel 50 ft with 2 turns (QC): 2 Wheel 150 ft (QC): 2 Type of Wheelchair: Manual Pt slow with propulsion of wheelchair, requires assistance as she states that her shoulder is painful so she cant push the chair. Pt pushed herself approximately 500' with mod A for pushing, and verbal cueing for directions. Pt continues to moan out in pain during wheelchair mobility. Exercises Supine Ex: Ankle pumps, Quad Set, Glut sets, Straight leg raise, Hip abd/add Supine Reps: 15 Treatments PT treat for supine LE exercises from 955-1005 then cotreat with OT from [id number] (50): cotreatment required due to patients mobility status, PT focused on LE exercises, functional mobility, transfers and activity tolerance while OT focused on ADLs, UE strength and transfers. Assessment Current Status: Fair Progress Pt with poor endurance for PT treatment, continues to require encouragement for all exercises and functional mobility. Will continue to progress treatment as pt tolerates. PT Short Term Goals Short Term Goals Time Frame: Sep 26, 2019 Roll Left & Right: 2 Sit to lyin Lying to sitting on side of be: 2 Sit to stand: 2 Chair/onp-rr-tkqwy transfer: 2 PT Autocad Operator Goals Custodial Goals PT Custodial Goals Time Frame: Oct 10, 2019 Roll Left & Right (QC): 3 Sit to Lying (QC): 3 Lying-Sitting on Side/Bed(QC): 3 Sit to Stand (QC): 3 Chair/Bkj-rf-Mryju Xfer(QC): 3 Toilet Transfer (QC): 3 Car Transfer (QC): 3 Does the Patient Walk: No and Walking Goal NOT indicated Walk 10 feet (QC): 88 Walk 50ft with 2 Turns (QC): 88 Walk 150 ft (QC): 88 Walking 10ft on Uneven Surface: 88 1 Step (curb) (QC): 88 4 Steps (QC): 88 12 Steps (QC): 88 Picking up an Object (QC): 88 Wheel 50 feet with 2 turns (QC: 4 Wheel 150 feet: 4 PT Plan Problem List Problem List: Activity Tolerance, Functional Strength, Safety, Balance, Transfer, Bed Mobility Treatment/Plan Treatment Plan: Continue Plan of Care Treatment Plan: Bed Mobility, Education, Functional Activity Za, Functional Strength, Group Therapy, Gait, Safety, Therapeutic Exercise, Transfers Treatment Duration: Oct 10, 2019 Frequency: At least 5 of 7 days/Wk (IRF) Estimated Hrs Per Day: 1.5 hours per day Patient and/or Family Agrees t: Yes Safety Risks/Education Patient Education: Transfer Techniques, W/C Management Teaching Recipient: Patient Teaching Methods: Discussion Response to Teaching: Reinforcement Needed Time/GCodes Time In: 955 Time Out: 1055 Total Billed Treatment Time: 60 Total Billed Treatment 1 visit Ex x 10 min [facility] x 30 min FA x 20 min PT treatment 955-1005 (10) Co treat with OT [id number] due to patients decreased mobility, transfers and balance. SERGEY SALGADO PT Sep 23, 2019 11:03
--- NOTE | 2019-09-23 11:04 | Occupational Ther Daily Note ---
OT Current Status-Daily Note Subjective Pt alert, lying in bed. Pt already working with PT. Pt. reported no pain. Pt. agreed to therapy. Mental Status/Objective Patient Orientation: Person, Time, Situation Attachments: IV ADL-Treatment Therapy Code Descriptions/Definitions Functional [place] Measure: 0=Not Assessed/NA 4=Minimal Assistance 1=Total Assistance 5=Supervision or Setup 2=Maximal Assistance 6=Modified [place] 3=Moderate Assistance 7=Complete IndependenceSCALE: Activities may be completed with or without assistive devices. 5-Jhcdrruyjk-tffkipw completes the activity by him/herself with no assistance from a helper. 5-Set-up or Clean-up Assistance-helper sets up or cleans up; patient completes activity. [place] assists only prior to or following the activity. 4-Supervision or Touching Assistance-helper provides verbal cues and/or touching/steadying and/or contact guard assistance as patient completes activity. Assistance may be provided throughout the activity or intermittently. 3-Partial/Moderate Assistance-helper does LESS THAN HALF the effort. [place] lifts, holds or supports trunk or limbs, but provides less than half the effort. 2-Substantial/Maximal Assistance-helper does MORE THAN HALF the effort. [place] lifts or holds trunk or limbs and provides more than half the effort. 7-Ribmixxbp-voiyxn does ALL the effort. Patient does none of the effort to complete the activity. Or, the assistance of 2 or more helpers is required for the patient to complete the activity. If activity was not attempted, code reason: 7-Patient Refused. 9-Not Applicable-not attempted and the patient did not perform the activity before the current illness, exacerbation or injury. 10-Not Attempted due to Environmental Limitations-(lack of equipment, weather restraints, etc.). 88-Not Attempted due to Medical Conditions or Safety Concerns. Upper Body Dressing (QC): 2 (Pt. required max assist for UB dressing. Pt facilitated threading arms through sleeves.) Lower Body Dressing (QC): 1 (Pt required total assistance for donning brief) Toileting Hygiene (QC): 1 (Pt required max assist of 2 for bed mobility to position bedpan and for snow care) Other Treatment PT/OT cotreat ([id number]), skills of 2 clinicians required due to medical complexity, dependent transfers, low activity tolerance and decreased mobility. PT working on transfers, bed mobility and w/c mobility. OT working in functional transfers, ADLs and B UE placement during tasks. Pt. lying in bed when therapy arrived. Pt agreed to therapy. Pt agreed to dressing in clothing to leave room. Pt requested using a bedpan prior to dressing. OT cued to initiate proper hand placement for bed mobility to right side. Pt. max assist while rolling to left side. Pt. dependent for snow care and max assist x2 for donning brief. Pt. required max assist x2 for supine-sit. Once EOB, pt. required max assist for [facility] gown and donning shirt dress. Pt. facilitated by threading arms through sleeves. Pt then transferred to w/c with dependent assistance. Pt was able to show improved ROM in R UE to propel w/c 25 feet. Pt utilized fine motor coordination to grasp a pen and write a note with increased time and mod cuing. Pt then returned to room and required dependent transfer to recliner. All needs met. Education OT Patient Education: Correct positioning Teaching Recipient: Patient Teaching Methods: Demonstration, Discussion Response to Teaching: Unable to Return Demonstration OT Short Term Goals Short Term Goals Time Frame: Sep 26, 2019 Eatin (Min assist) Oral hygiene: 3 (Min assist) Toileting hygiene: 2 Shower/bathe self: 3 (Mod assist) Upper body dressin (Mod) Lower body dressin Putting on/taking off footwear: 2 OT Detention Goals Aerospace Mechanic Goals Time Frame: Oct 10, 2019 Eating (QC): 4 Oral Hygiene (QC): 4 Toileting Hygiene (QC): 3 (Min) Shower/Bathe Self (QC): 3 (min) Upper Body Dressing (QC): 3 (Min) Lower Body Dressing (QC): 3 (Min) On/Off Footwear (QC): 3 (MIn) Additional Goals: 1-Demonstrate ADL Tasks, 2-Verbalize Understanding, 3- ImproveStrength/Za 1=Demonstrate adherence to instructed precautions during ADL tasks. 2=Patient will verbalize/demonstrate understanding of assistive devices/modifications for ADL. 3=Patient will improve strength/tolerance for activity to enable patient to perform ADL's. OT Education/Plan Problem List/Assessment Assessment: Decreased Activ Tolerance, Decreased Safety Aware, Decreased UE Strength, Dependent Transfers, Impaired Bed Mobility, Impaired Cognition, Impaired Coordination, Impaired Funct Balance, Impaired I ADL's, Impaired Self- Care Skills, Restricted Funct UE ROM Discharge Recommendations Plan/Recommendations: Continue POC Therapy Discharge Recommendati: 24 Hour Supervision Treatment Plan/Plan of Care Patient would benefit from OT for education, treatment and training to promote independence in ADL's, mobility, safety and/or upper extremity function for ADL's. Plan of Care: ADL Retraining, Caregiver Training, Functional Mobility, Group Exercise/Act as Ind, UE Funct Exercise/Act Treatment Duration: Oct 10, 2019 Frequency: At least 5 of 7 days/Wk (IRF) Estimated Hrs Per Day: 1.5 hours per day Agreement: Yes Rehab Potential: Guarded Time/GCodes Start Time: 10:00 Stop Time: 11:00 Total Time Billed (hr/min): 60 Billed Treatment Time 1, ADL x2 (30 minutes), FA x2 (30 minutes) Co-treat with PT for 60 minutes ([id number]) ELLIOT YOUNG Sep 23, 2019 11:04
--- NOTE | 2019-09-23 11:14 | Speech Therapy Daily Note ---
Speech Daily Progress Note Subjective Date Seen by Provider: Sep 23, 2019 Time Seen by Provider: 00:30 Patient was up in recliner requesting to use the bed contreras when I entered her room. She was assisted to the bed contreras with nurse and PT. Objective Patient demo requesting daily needs at 90%. Noted recall of new information remains decreased. Assessment Assessment Current Status: Fair Progress Treatment Plan Continue Plan of Care Speech Short Term Goals Short Term Goals Short Term Goals 1) Patient will complete memory tasks related to her daily needs at 80% with minimal cues. 2) Patient will complete safety awareness tasks related to her daily needs at 80% with minimal cues. 3) Patient will complete problem solving tasks related to her daily needs at 80% with minimal cues. Speech Prison Goals Prison Goals Patient will improve cognitive-communication necessary for safety and daily living tasks with minimal assist. Speech-Plan Patient/Family Goals Patient/Family Goals: Patient will be discharging to SNF within the next week for continued therapy and assist with daily needs. Treatment Plan Speech Therapy Treatment Plan: Continue Plan of Care Treatment Duration: Sep 30, 2019 Frequency: 5 times per week Estimated Hrs Per Day: .5 hour per day Rehab Potential: Guarded Barriers to Learning: Patient's decreased cognition, age and [place] Pt/Family Agrees to Plan: Yes Safety Risks/Education Teaching Recipient: Patient Teaching Methods: Demonstration, Discussion Response to Teaching: Verbalize Understanding, Return Demonstration Education Topics Provided: Continued safety within her room and communication of wants/needs Time Speech Therapy Time In: 09:00 Speech Therapy Time Out: 09:30 Total Billed Time: 30 Billed Treatment Time [address] Sep 23, 2019 11:14
[2019-09-23] MEDS: ACETAMINOPHEN 325 MG TABLET PO PRN ×2 (11:40→16:42)
--- NOTE | 2019-09-23 11:59 | Occupational Ther Daily Note ---
OT Current Status-Daily Note Subjective Pt alert, sitting in recliner. Nrsg in room. Pt c/o pain throughout body, nrsg administered pain medication. ADL-Treatment Pt requested to use bedpan. Pt declined to use BSC. Pt required assist x2 to roll and place bedpan. Assist x2 for toileting. After session, pt sitting in recliner with call light/phone in reach. All needs met in room. Therapy Code Descriptions/Definitions Functional [place] Measure: 0=Not Assessed/NA 4=Minimal Assistance 1=Total Assistance 5=Supervision or Setup 2=Maximal Assistance 6=Modified [place] 3=Moderate Assistance 7=Complete IndependenceSCALE: Activities may be completed with or without assistive devices. 8-Bkjqqfqcea-ddymfxs completes the activity by him/herself with no assistance from a helper. 5-Set-up or Clean-up Assistance-helper sets up or cleans up; patient completes activity. [place] assists only prior to or following the activity. 4-Supervision or Touching Assistance-helper provides verbal cues and/or touching/steadying and/or contact guard assistance as patient completes activity. Assistance may be provided throughout the activity or intermittently. 3-Partial/Moderate Assistance-helper does LESS THAN HALF the effort. [place] li fts, holds or supports trunk or limbs, but provides less than half the effort. 2-Substantial/Maximal Assistance-helper does MORE THAN HALF the effort. [place] lifts or holds trunk or limbs and provides more than half the effort. 3-Sgfdwrkod-jootln does ALL the effort. Patient does none of the effort to complete the activity. Or, the assistance of 2 or more helpers is required for the patient to complete the activity. If activity was not attempted, code reason: 7-Patient Refused. 9-Not Applicable-not attempted and the patient did not perform the activity before the current illness, exacerbation or injury. 10-Not Attempted due to Environmental Limitations-(lack of equipment, weather restraints, etc.). 88-Not Attempted due to Medical Conditions or Safety Concerns. Toileting Hygiene (QC): 1 OT Short Term Goals Short Term Goals Time Frame: Sep 26, 2019 Eatin (Min assist) Oral hygiene: 3 (Min assist) Toileting hygiene: 2 Shower/bathe self: 3 (Mod assist) Upper body dressin (Mod) Lower body dressin Putting on/taking off footwear: 2 OT Continuous Mining Machine Lode Miner Goals Mcfp Goals Time Frame: Oct 10, 2019 Eating (QC): 4 Oral Hygiene (QC): 4 Toileting Hygiene (QC): 3 (Min) Shower/Bathe Self (QC): 3 (min) Upper Body Dressing (QC): 3 (Min) Lower Body Dressing (QC): 3 (Min) On/Off Footwear (QC): 3 (MIn) Additional Goals: 1-Demonstrate ADL Tasks, 2-Verbalize Understanding, 3- ImproveStrength/Za 1=Demonstrate adherence to instructed precautions during ADL tasks. 2=Patient will verbalize/demonstrate understanding of assistive devices/modifications for ADL. 3=Patient will improve strength/tolerance for activity to enable patient to perform ADL's. OT Education/Plan Problem List/Assessment Assessment: Decreased Activ Tolerance, Decreased UE Strength, Impaired Self- Care Skills Discharge Recommendations Plan/Recommendations: Continue POC Treatment Plan/Plan of Care Patient would benefit from OT for education, treatment and training to promote independence in ADL's, mobility, safety and/or upper extremity function for ADL's. Plan of Care: ADL Retraining, Caregiver Training, Functional Mobility, Group Exercise/Act as Ind, UE Funct Exercise/Act Treatment Duration: Oct 10, 2019 Frequency: At least 5 of 7 days/Wk (IRF) Estimated Hrs Per Day: 1.5 hours per day Agreement: Yes Rehab Potential: Guarded Time/GCodes Start Time: 11:45 Stop Time: 12:00 Total Time Billed (hr/min): 15 Billed Treatment Time 1 visit-ADL 1 (15 min) ELLIOT YOUNG Sep 23, 2019 11:59
--- NOTE | 2019-09-23 14:04 | Physical Therapy Daily Note ---
PT Daily Note-Current Subjective Pt presents sitting up in chair upon arrival to room, pt requests returning to bed and needing to use bedpan at this time. Appearance Following treatment, pt is reclined in bed, on the bedpan. Call light in hand, pt told to use call light when she is done using it. Transfers SCALE: Activities may be completed with or without assistive devices. 4-Wpowzpkzhe-cfjboqv completes the activity by him/herself with no assistance from a helper. 5-Set-up or Clean-up Assistance-helper sets up or cleans up; patient completes activity. [place] assists only prior to or following the activity. 4-Supervision or Touching Assistance-helper provides verbal cues and/or touching/steadying and/or contact guard assistance as patient completes activity. Assistance may be provided throughout the activity or intermittently. 3-Partial/Moderate Assistance-helper does LESS THAN HALF the effort. [place] lifts, holds or supports trunk or limbs, but provides less than half the effort. 2-Substantial/Maximal Assistance-helper does MORE THAN HALF the effort. [place] lifts or holds trunk or limbs and provides more than half the effort. 9-Eiwupvkvb-vtoceg does ALL the effort. Patient does none of the effort to complete the activity. Or, the assistance of 2 or more helpers is required for the patient to complete the activity. If activity was not attempted, code reason: 7-Patient Refused. 9-Not Applicable-not attempted and the patient did not perform the activity before the current illness, exacerbation or injury. 10-Not Attempted due to Environmental Limitations-(lack of equipment, weather restraints, etc.). 88-Not Attempted due to Medical Conditions or Safety Concerns. Roll Left & Right (QC): 2 (attempts to roll to R but not L) Sit to Lying (QC): 1 Chair/Eiy-sj-Fdixa Xfer(QC): 1 stand pivot preformed from chair to bed, pt dependent for transfer. Weight Bearing Right Lower Extremity: Right Non Weight Bearing Left Lower Extremity: Left Full Weight Bearing Treatments Pt transferred from chair to bed, and then assisted RN with bed mobility for pt to be placed on bedpan. Assessment Current Status: Fair Progress Pt continues to be dependent for transfers at this visit, will progress as pt tolerates. PT Short Term Goals Short Term Goals Time Frame: Sep 26, 2019 Roll Left & Right: 2 Sit to lyin Lying to sitting on side of be: 2 Sit to stand: 2 Chair/kyp-sv-wggxs transfer: 2 PT Detention Goals Detention Goals PT Detention Goals Time Frame: Oct 10, 2019 Roll Left & Right (QC): 3 Sit to Lying (QC): 3 Lying-Sitting on Side/Bed(QC): 3 Sit to Stand (QC): 3 Chair/Aqq-bx-Bwozp Xfer(QC): 3 Toilet Transfer (QC): 3 Car Transfer (QC): 3 Does the Patient Walk: No and Walking Goal NOT indicated Walk 10 feet (QC): 88 Walk 50ft with 2 Turns (QC): 88 Walk 150 ft (QC): 88 Walking 10ft on Uneven Surface: 88 1 Step (curb) (QC): 88 4 Steps (QC): 88 12 Steps (QC): 88 Picking up an Object (QC): 88 Wheel 50 feet with 2 turns (QC: 4 Wheel 150 feet: 4 PT Plan Problem List Problem List: Activity Tolerance, Functional Strength, Safety, Balance, Gait, Transfer, Bed Mobility Treatment/Plan Treatment Plan: Continue Plan of Care Treatment Plan: Bed Mobility, Education, Functional Activity Za, Functional Strength, Group Therapy, Gait, Safety, Therapeutic Exercise, Transfers Treatment Duration: Oct 10, 2019 Frequency: At least 5 of 7 days/Wk (IRF) Estimated Hrs Per Day: 1.5 hours per day Patient and/or Family Agrees t: Yes Safety Risks/Education Patient Education: Transfer Techniques Teaching Recipient: Patient Teaching Methods: Discussion Response to Teaching: Reinforcement Needed Time/GCodes Time In: 1310 Time Out: 1325 Total Billed Treatment Time: 15 Total Billed Treatment 1 visit FA x 15 min SERGEY SALGADO PT Sep 23, 2019 14:04
[2019-09-23] MEDS: CATHETER FLUSH 10 ML SYR IV SCH ×2 (14:18→22:00)
--- NOTE | 2019-09-23 14:20 | NUR ---
pt c/o nausea. did not eat lunch. requests clear soda and crackers. given. davie sips taken. 2 large burps. c/o still feeling nauseated. 1 tab zofran given po, rests.
[2019-09-23 16:29] VITALS: BP 137/72
[2019-09-23] MEDS: SERTRALINE 50 MG (ZOLOFT) TABLET PO SCH (21:00)
[2019-09-23] MEDS: SIMvastatin 20 MG (ZOCOR) TAB PO SCH (21:00)
--- NOTE | 2019-09-24 05:58 | PM&R Progress Note ---
Subjective HPI/CC On Admission Date Seen by Provider: Sep 24, 2019 Time Seen by Provider: 06:00 Subjective/Events-last exam No major changes Dr. Thomas will manage wound care at [facility] Receiving saline nasal spray as she takes at home Denies any other significant issues Dementia and hard of hearing makes it very difficult and she has behaviors related to dementia Needs skilled care Checked meds and labs Conferred with RN Reviewed therapy notes Review of Systems Neurological: Confusion Objective Exam Vital Signs Vital Signs Date Time Temp Pulse Resp B/P (MAP) Pulse Ox O2 Delivery O2 Flow Rate FiO2 09/24/19 09:00 Room Air 09/24/19 06:48 37.2 104 20 169/74 (105) 99 Capillary Refill : Less Than 3 Seconds General Appearance: WD/WN, Anxious, Chronically ill, Mild Distress (due to pain right leg amputation site) HEENT: PERRL/EOMI, Normal ENT Inspection, Pharynx Normal Neck: Full Range of Motion, Normal Inspection, Non Tender, Supple, Carotid Bruit Respiratory: Chest Non Tender, Lungs Clear, No Accessory Muscle Use, No Respiratory Distress, Decreased Breath Sounds Cardiovascular: Regular Rate, Rhythm, No Edema, No Gallop, No JVD, No Murmur, Normal Peripheral Pulses Gastrointestinal: Normal Bowel Sounds, No Organomegaly, No Pulsatile Mass, Non Tender, Soft Back: Normal Inspection, No CVA Tenderness, No Vertebral Tenderness Extremity: Normal Capillary Refill, Normal Inspection, Normal Range of Motion, Non Tender, No Calf Tenderness, No Pedal Edema, Other (right leg BKA surgical site with dressing intact) Neurologic/Psychiatric: Alert, No Motor/Sensory Deficits, Normal Mood/Affect, Disoriented, Other (CAPITAN GRANDE BAND) Skin: Normal Color, Warm/Dry Lymphatic: No Adenopathy Results/Procedures Lab Patient resulted labs reviewed. FIM Transfers Therapy Code Descriptions/Definitions Functional Bath Measure: 0=Not Assessed/NA 4=Minimal Assistance 1=Total Assistance 5=Supervision or Setup 2=Maximal Assistance 6=Modified [place] 3=Moderate Assistance 7=Complete IndependenceSCALE: Activities may be completed with or without assistive devices. 8-Zprsguozmu-aqattrt completes the activity by him/herself with no assistance from a helper. 5-Set-up or Clean-up Assistance-helper sets up or cleans up; patient completes activity. [place] assists only prior to or following the activity. 4-Supervision or Touching Assistance-helper provides verbal cues and/or touching/steadying and/or contact guard assistance as patient completes activity. Assistance may be provided throughout the activity or intermittently. 3-Partial/Moderate Assistance-helper does LESS THAN HALF the effort. [place] lifts, holds or supports trunk or limbs, but provides less than half the effort. 2-Substantial/Maximal Assistance-helper does MORE THAN HALF the effort. [place] lifts or holds trunk or limbs and provides more than half the effort. 5-Lfvzzgykj-priham does ALL the effort. Patient does none of the effort to complete the activity. Or, the assistance of 2 or more helpers is required for the patient to complete the activity. If activity was not attempted, code reason: 7-Patient Refused. 9-Not Applicable-not attempted and the patient did not perform the activity before the current illness, exacerbation or injury. 10-Not Attempted due to Environmental Limitations-(lack of equipment, weather restraints, etc.). 88-Not Attempted due to Medical Conditions or Safety Concerns. Roll Left to Right (QC): 2 (attempts to roll to R but not L) Sit to Lying (QC): 1 Sit to Stand (QC): 1 Chair/Mzt-ls-Yarci Xfer(QC): 1 Car Transfer (QC): 1 Gait Training Does the Patient Walk?: No and Walking Goal NOT indicated Walk 10 feet (QC): 88 Walk 50 ft with 2 Turns(QC): 88 Walk 150 ft (QC): 88 Walking 10ft/uneven surface-QC: 88 Wheelchair Training Does the Pt Use a Wheelchair?: Yes Wheel 50 ft with 2 turns (QC): 2 Wheel 150 ft (QC): 2 Type of Wheelchair: Manual Stair Training 1 Step (curb) (QC): 88 4 Steps (QC): 8 12 Steps (QC): 8 Balance Picking up an Object (QC): 88 ADL-Treatment Eating (QC): 5 (Set up) Oral Hygiene (QC): 5 (Set up to floss teeth repeatedly.) Shower/Bathe Self (QC): 2 (Pt. able to wash face and chest, as well as arms at bed level. Required max assist with all other parts.) Upper Body Dressing (QC): 2 (Pt. required max assist for UB dressing. 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 unsuccessful in revascularization at [facility] and [facility] Hyperkalemia-resolved Hyponatremia placed on fluid restriction and salt tablets baseline 131 Leukocytosis likely reactive no infection found on w/u- stable Coronary artery disease Hyperlipidemia Hypothyroidism Seizure disorder especially when hyponatremia worsens per son Seasonal allergies GERD Depression Bladder spasms DVT prophylaxis: Lovenox Plan: IRF protocol DC Fentanyl 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
[2019-09-24 06:48] VITALS: BP 169/74
[2019-09-24] MEDS: CATHETER FLUSH 10 ML SYR IV SCH ×3 (07:56→20:13)
[2019-09-24] MEDS: LEVOTHYROXINE 50 MCG (LEVOTHROID) TAB PO SCH (08:00)
[2019-09-24] MEDS: oxyCODONE 5 MG/5 ML ORAL SOLN (roxiCODONE) 5 ML UDC PO PRN (09:11)
[2019-09-24] MEDS: RANOLAZINE ER 500 MG TAB (RANEXA) PO SCH ×2 (09:12→20:10)
[2019-09-24] MEDS: PANTOPRAZOLE 40 MG (PROTONIX) TAB PO SCH ×2 (09:12→20:10)
[2019-09-24] MEDS: LORATADINE (CLARITIN) 10 MG TAB PO SCH (09:13)
[2019-09-24] MEDS: OXYBUTYNIN (DITROPAN) 5 MG TAB PO SCH ×2 (09:13→20:10)
[2019-09-24] MEDS: guaiFENesin (MUCINEX) 600 MG TAB PO SCH (09:13)
[2019-09-24] MEDS: LEVETIRACETAM 500 MG (KEPPRA) TAB PO SCH ×2 (09:13→20:11)
[2019-09-24] MEDS: SODIUM CHLORIDE 1 GM TABLET PO SCH ×2 (09:14→20:10)
[2019-09-24] MEDS: ASPIRIN E.C. 81 MG (ECOTRIN) TAB PO SCH (09:14)
[2019-09-24] MEDS: ENOXAPARIN 30 MG/0.3 ML (LOVENOX) SYR SC SCH ×2 (09:15→20:12)
[2019-09-24] MEDS: SALINE NASAL SPRAY (OCEAN) 45 ML BTL SCH (09:16)
[2019-09-24] MEDS: FLUTICASONE NASAL SPRAY (FLONASE) 16 GM BTL NS SCH (09:16)
[2019-09-24] MEDS: DOCUSATE SODIUM 100 MG (COLACE) CAP PO SCH (09:16)
[2019-09-24] MEDS: SENNA W/DOCUSATE (SENOKOT S) TABLET PO SCH (09:17)
[2019-09-24] MEDS: polyethylene glycoL POWDER 17 GM (MIRALAX) PACK PO SCH ×2 (09:17→19:47)
[2019-09-24] MEDS: MUPIROCIN 2% OINT 22 GM (BACTROBAN) TUBE TOP SCH ×2 (09:18→20:12)
--- NOTE | 2019-09-24 10:37 | Physical Therapy Daily Note ---
PT Daily Note-Current Subjective Pt. moans and cries with pain she rates in residual limb and of phantom pain at 8/10. Pt. states she is so fearful some one will hurt her. This DO ALL OPERATOR assures her no one will harm her. But that movement and necessary activity may be uncomfortable. Pt states while crying that she wishes she were and that she is so afraid. "I mean that" Pain Numeric Pain Scale: 8 Location: Right Location Body Site: Calf Pain Description: Stabbing Appearance eyes closed most of the time and needs nudged to have pt. read marker board used for communication throughout entire rx Mental Status Patient Orientation: Person, Situation, [place] Transfers SCALE: Activities may be completed with or without assistive devices. 4-Vastdymbcc-hyglnkm completes the activity by him/herself with no assistance from a helper. 5-Set-up or Clean-up Assistance-helper sets up or cleans up; patient completes activity. [place] assists only prior to or following the activity. 4-Supervision or Touching Assistance-helper provides verbal cues and/or touching/steadying and/or contact guard assistance as patient completes activity. Assistance may be provided throughout the activity or intermittently. 3-Partial/Moderate Assistance-helper does LESS THAN HALF the effort. [place] lifts, holds or supports trunk or limbs, but provides less than half the effort. 2-Substantial/Maximal Assistance-helper does MORE THAN HALF the effort. [place] lifts or holds trunk or limbs and provides more than half the effort. 3-Ypueovfsg-mmmzzw does ALL the effort. Patient does none of the effort to complete the activity. Or, the assistance of 2 or more helpers is required for the patient to complete the activity. If activity was not attempted, code reason: 7-Patient Refused. 9-Not Applicable-not attempted and the patient did not perform the activity before the current illness, exacerbation or injury. 10-Not Attempted due to Environmental Limitations-(lack of equipment, weather restraints, etc.). 88-Not Attempted due to Medical Conditions or Safety Concerns. pt. was in pain , movement increased pain. She refused rolling , sitting etc Weight Bearing Right Lower Extremity: Right Non Weight Bearing Left Lower Extremity: Left Full Weight Bearing Exercises Supine Ex: Ankle pumps (left), Quad Set, Heel Slides, Straight leg raise, Hip abd/add Supine Reps: 10 (bilat with assist , slow with rest breaks secondary to pain) Assessment Current Status: Poor Progress appears depressed and fearful PT Short Term Goals Short Term Goals Time Frame: Sep 26, 2019 Roll Left & Right: 2 Sit to lyin Lying to sitting on side of be: 2 Sit to stand: 2 Chair/vwi-wn-rxmae transfer: 2 PT [facility] Goals Assembler Final Goals PT [facility] Goals Time Frame: Oct 10, 2019 Roll Left & Right (QC): 3 Sit to Lying (QC): 3 Lying-Sitting on Side/Bed(QC): 3 Sit to Stand (QC): 3 Chair/Ebd-tp-Zlwiy Xfer(QC): 3 Toilet Transfer (QC): 3 Car Transfer (QC): 3 Does the Patient Walk: No and Walking Goal NOT indicated Walk 10 feet (QC): 88 Walk 50ft with 2 Turns (QC): 88 Walk 150 ft (QC): 88 Walking 10ft on Uneven Surface: 88 1 Step (curb) (QC): 88 4 Steps (QC): 88 12 Steps (QC): 88 Picking up an Object (QC): 88 Wheel 50 feet with 2 turns (QC: 4 Wheel 150 feet: 4 PT Plan Treatment/Plan Treatment Plan: Continue Plan of Care Treatment Plan: Bed Mobility, Education, Functional Activity Za, Functional Strength, Group Therapy, Gait, Safety, Therapeutic Exercise, Transfers Treatment Duration: Oct 10, 2019 Frequency: At least 5 of 7 days/Wk (IRF) Estimated Hrs Per Day: 1.5 hours per day Patient and/or Family Agrees t: Yes Safety Risks/Education Patient Education: Correct Positioning, Disease Process Teaching Recipient: Patient Response to Teaching: Unable to Return Demonstration, Reinforcement Needed Time/GCodes Time In: 955 Time Out: 1020 Total Billed Treatment Time: 25 Total Billed Treatment 1,EX25m BUDDY FUENTES DO ALL OPERATOR Sep 24, 2019 10:37
--- NOTE | 2019-09-24 11:00 | NUR ---
JAIME PRADO HERE TO ASSES AMPUTATION. INCISION CLEAN, BRUISED. PATIENT CRYING WHEN SPLINT WAS ATTEMPTED TO PUT ON AND REFUSED TO HAVE IT ON.
--- NOTE | 2019-09-24 11:07 | Progress Note ---
Subjective Date Seen by a Provider: Sep 24, 2019 Time Seen by a Provider: 11:00 Subjective/Events-last exam Patient seen with Dr. Thomas. Patient doing well. Does report some right BKA pain. RN reports patient doesn't really like to take the oxycodone. Patient has been taking tylenol but does have increased pain at times. Patient is tolerating diet with no N/V as well as no fever/chills. Objective Exam Vital Signs Date Time Temp Pulse Resp B/P (MAP) Pulse Ox O2 Delivery O2 Flow Rate FiO2 09/24/19 06:48 37.2 104 20 169/74 (105) 99 Room Air 09/23/19 21:00 Room Air 09/23/19 16:29 36.8 94 14 137/72 (93) 98 Room Air I & O 09/24/19 07:00 Intake Total 1410 ml Balance 1410 ml Capillary Refill : Less Than 3 Seconds General Appearance: No Apparent Distress, WD/WN Neck: Full Range of Motion, Normal Inspection, Supple Respiratory: Normal Breath Sounds, No Accessory Muscle Use, No Respiratory Distress Cardiovascular: Regular Rate, Rhythm, No Edema Gastrointestinal: normal bowel sounds, non tender, soft Extremity: Other (Right BKA incision C/D/I with ecchymosis noted. No drainage or signs of infection.) Neurologic/Psychiatric: Alert, Depressed Affect Skin: Normal Color, Warm/Dry Assessment/Plan Assessment/Plan Assess & Plan/Chief 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 cont therapies. Continue oral pain medication as needed. Continue splint to prevent contracture. Clinical Quality Measures DVT/VTE Risk/Contraindication: Risk Factor Score Per Nursin RFS Level Per Nursing on Admit: 4+=Very High EVE ARCE STEEL CHECKER Sep 24, 2019 11:07
--- NOTE | 2019-09-24 11:30 | NUR ---
PATIENT DOESN'T LIKE TO TAKE ARNIE, BUT ONLY HAS TYLENOL OTHERWISE. ORDER OBTAINED FOR [facility].
--- NOTE | 2019-09-24 13:00 | NUR ---
ULTRAM APPEARS TO HELP PAIN. STILL CRIES OUT AT INTERVALS AND CAN'T GET COMFORTABLE.
[2019-09-24] MEDS: ALPRAZolam 0.25 MG (XANAX) TAB PO PRN (15:35)
[2019-09-24 17:13] VITALS: BP 150/82
[2019-09-24] MEDS: SIMvastatin 20 MG (ZOCOR) TAB PO SCH (20:10)
[2019-09-24] MEDS: MELATONIN 3 MG TABLET PO PRN (20:11)
[2019-09-24] MEDS: SERTRALINE 50 MG (ZOLOFT) TABLET PO SCH (20:11)
[2019-09-25 05:15] VITALS: BP 138/81
[2019-09-25] MEDS: oxyCODONE 5 MG/5 ML ORAL SOLN (roxiCODONE) 5 ML UDC PO PRN ×2 (06:06→20:52)
[2019-09-25] MEDS: LEVOTHYROXINE 50 MCG (LEVOTHROID) TAB PO SCH (06:06)
[2019-09-25] MEDS: CATHETER FLUSH 10 ML SYR IV SCH ×3 (06:09→20:51)
[2019-09-25] MEDS: SALINE NASAL SPRAY (OCEAN) 45 ML BTL SCH (10:06)
[2019-09-25] MEDS: FLUTICASONE NASAL SPRAY (FLONASE) 16 GM BTL NS SCH (10:06)
[2019-09-25] MEDS: RANOLAZINE ER 500 MG TAB (RANEXA) PO SCH ×2 (10:06→20:50)
[2019-09-25] MEDS: LORATADINE (CLARITIN) 10 MG TAB PO SCH (10:07)
[2019-09-25] MEDS: guaiFENesin (MUCINEX) 600 MG TAB PO SCH (10:07)
[2019-09-25] MEDS: SENNA W/DOCUSATE (SENOKOT S) TABLET PO SCH (10:07)
[2019-09-25] MEDS: OXYBUTYNIN (DITROPAN) 5 MG TAB PO SCH ×2 (10:07→20:50)
[2019-09-25] MEDS: ASPIRIN E.C. 81 MG (ECOTRIN) TAB PO SCH (10:07)
[2019-09-25] MEDS: DOCUSATE SODIUM 100 MG (COLACE) CAP PO SCH (10:08)
[2019-09-25] MEDS: PANTOPRAZOLE 40 MG (PROTONIX) TAB PO SCH ×2 (10:08→20:49)
[2019-09-25] MEDS: LEVETIRACETAM 500 MG (KEPPRA) TAB PO SCH ×2 (10:08→20:50)
[2019-09-25] MEDS: ACETAMINOPHEN 325 MG TABLET PO PRN (10:09)
[2019-09-25] MEDS: polyethylene glycoL POWDER 17 GM (MIRALAX) PACK PO SCH ×3 (10:09→19:39)
[2019-09-25] MEDS: SODIUM CHLORIDE 1 GM TABLET PO SCH ×2 (10:09→20:51)
[2019-09-25] MEDS: ENOXAPARIN 30 MG/0.3 ML (LOVENOX) SYR SC SCH ×2 (10:10→20:51)
--- NOTE | 2019-09-25 10:50 | Progress Note ---
Subjective Date Seen by a Provider: Sep 25, 2019 Time Seen by a Provider: 09:10 Subjective/Events-last exam Patient seen with Dr. Thomas. Patient doing well and resting in bed. Patient does report episodes of depression. Does report some generalized back pain but no significant right BKA pain. Objective Exam Vital Signs Date Time Temp Pulse Resp B/P (MAP) Pulse Ox O2 Delivery O2 Flow Rate FiO2 09/25/19 05:15 36.9 103 18 138/81 (100) 98 Room Air 09/24/19 20:30 Room Air 09/24/19 17:13 37.4 101 20 150/82 (104) 100 Room Air I & O 09/25/19 07:00 Intake Total 950 ml Balance 950 ml Capillary Refill : Less Than 3 Seconds General Appearance: No Apparent Distress, WD/WN Neck: Normal Inspection, Non Tender, Supple Respiratory: Normal Breath Sounds, No Accessory Muscle Use, No Respiratory Distress Cardiovascular: Regular Rate, Rhythm, No Edema Gastrointestinal: normal bowel sounds, non tender, soft Extremity: Other (right BKA with dressing in place. Dressing is clean and dry with no drainage.) Neurologic/Psychiatric: Alert, Depressed Affect Skin: Normal Color, Warm/Dry Assessment/Plan Assessment/Plan Assess & Plan/Chief 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 cont therapies. Continue oral pain medication as needed. Continue splint to prevent contracture. Clinical Quality Measures DVT/VTE Risk/Contraindication: Risk Factor Score Per Nursin RFS Level Per Nursing on Admit: 4+=Very High EVE ARCE DOG CATCHER Sep 25, 2019 10:50
[2019-09-25] MEDS: MUPIROCIN 2% OINT 22 GM (BACTROBAN) TUBE TOP SCH ×2 (12:24→20:52)
--- NOTE | 2019-09-25 13:37 | PM&R Progress Note ---
Subjective HPI/CC On Admission Date Seen by Provider: Sep 25, 2019 Time Seen by Provider: 06:00 Subjective/Events-last exam No major changes Dr. Thomas will manage wound care at [facility] and we appreciate his help Darya completed Receiving saline nasal spray as she takes at home Denies any other significant issues Dementia and hard of hearing makes it very difficult and she has behaviors related to dementia Needs skilled care Checked meds and labs Conferred with RN Reviewed therapy notes Review of Systems Musculoskeletal: leg pain Neurological: Confusion Objective Exam Vital Signs Vital Signs Date Time Temp Pulse Resp B/P (MAP) Pulse Ox O2 Delivery O2 Flow Rate FiO2 09/25/19 08:20 Room Air 09/25/19 05:15 36.9 103 18 138/81 (100) 98 Capillary Refill : Less Than 3 Seconds General Appearance: No Apparent Distress, WD/WN HEENT: PERRL/EOMI, Normal ENT Inspection, Pharynx Normal Neck: Normal Inspection, Non Tender, Supple Respiratory: Normal Breath Sounds, No Accessory Muscle Use, No Respiratory Distress Cardiovascular: Regular Rate, Rhythm, No Edema Gastrointestinal: Normal Bowel Sounds, No Organomegaly, No Pulsatile Mass, Non Tender, Soft Back: Normal Inspection, No CVA Tenderness, No Vertebral Tenderness Extremity: Other (right BKA with dressing in place. Dressing is clean and dry with no drainage.) Neurologic/Psychiatric: Alert, Depressed Affect Skin: Normal Color, Warm/Dry Lymphatic: No Adenopathy Results/Procedures Lab Patient resulted labs reviewed. FIM Transfers Therapy Code Descriptions/Definitions Functional [place] Measure: 0=Not Assessed/NA 4=Minimal Assistance 1=Total Assistance 5=Supervision or Setup 2=Maximal Assistance 6=Modified [place] 3=Moderate Assistance 7=Complete IndependenceSCALE: Activities may be completed with or without assistive devices. 6-Phjfjrsnvs-hkpxldn completes the activity by him/herself with no assistance from a helper. 5-Set-up or Clean-up Assistance-helper sets up or cleans up; patient completes activity. [place] assists only prior to or following the activity. 4-Supervision or Touching Assistance-helper provides verbal cues and/or touching/steadying and/or contact guard assistance as patient completes activity. Assistance may be provided throughout the activity or intermittently. 3-Partial/Moderate Assistance-helper does LESS THAN HALF the effort. [place] lifts, holds or supports trunk or limbs, but provides less than half the effort. 2-Substantial/Maximal Assistance-helper does MORE THAN HALF the effort. [place] lifts or holds trunk or limbs and provides more than half the effort. 7-Uuvxihbwa-gkkjxv does ALL the effort. Patient does none of the effort to complete the activity. Or, the assistance of 2 or more helpers is required for the patient to complete the activity. If activity was not attempted, code reason: 7-Patient Refused. 9-Not Applicable-not attempted and the patient did not perform the activity before the current illness, exacerbation or injury. 10-Not Attempted due to Environmental Limitations-(lack of equipment, weather restraints, etc.). 88-Not Attempted due to Medical Conditions or Safety Concerns. Roll Left to Right (QC): 2 (attempts to roll to R but not L) Sit to Lying (QC): 1 Sit to Stand (QC): 1 Chair/Ivc-eg-Jjoex Xfer(QC): 1 Car Transfer (QC): 1 Gait Training Does the Patient Walk?: No and Walking Goal NOT indicated Walk 10 feet (QC): 88 Walk 50 ft with 2 Turns(QC): 88 Walk 150 ft (QC): 88 Walking 10ft/uneven surface-QC: 88 Wheelchair Training Does the Pt Use a Wheelchair?: Yes Wheel 50 ft with 2 turns (QC): 2 Wheel 150 ft (QC): 2 Type of Wheelchair: Manual Stair Training 1 Step (curb) (QC): 88 4 Steps (QC): 8 12 Steps (QC): 8 Balance Picking up an Object (QC): 88 ADL-Treatment Eating (QC): 5 (Set up) Oral Hygiene (QC): 5 (Set up to floss teeth repeatedly.) Shower/Bathe Self (QC): 2 (Pt. able to wash face and chest, as well as arms at bed level. Required max assist with all other parts.) Upper Body Dressing (QC): 2 (Pt. required max assist for UB dressing. 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 unsuccessful in revascularization at [facility] and [facility] Hyperkalemia-resolved Hyponatremia placed on fluid restriction and salt tablets baseline 131 Leukocytosis likely reactive no infection found on w/u- stable Coronary artery disease Hyperlipidemia Hypothyroidism Seizure disorder especially when hyponatremia worsens per son Seasonal allergies GERD Depression Bladder spasms DVT prophylaxis: Lovenox Plan: IRF protocol DC Fentanyl 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
[2019-09-25 17:31] VITALS: BP 147/78
[2019-09-25] MEDS: SERTRALINE 50 MG (ZOLOFT) TABLET PO SCH (20:50)
[2019-09-25] MEDS: SIMvastatin 20 MG (ZOCOR) TAB PO SCH (20:50)
[2019-09-26 05:34] VITALS: BP 151/84
[2019-09-26] MEDS: CATHETER FLUSH 10 ML SYR IV SCH ×3 (05:46→22:30)
[2019-09-26] MEDS: LEVOTHYROXINE 50 MCG (LEVOTHROID) TAB PO SCH (05:46)
[2019-09-26] MEDS: SENNA W/DOCUSATE (SENOKOT S) TABLET PO SCH (09:02)
[2019-09-26] MEDS: ASPIRIN E.C. 81 MG (ECOTRIN) TAB PO SCH (09:02)
[2019-09-26] MEDS: ENOXAPARIN 30 MG/0.3 ML (LOVENOX) SYR SC SCH ×2 (09:02→22:17)
[2019-09-26] MEDS: guaiFENesin (MUCINEX) 600 MG TAB PO SCH (09:02)
[2019-09-26] MEDS: LEVETIRACETAM 500 MG (KEPPRA) TAB PO SCH ×2 (09:02→22:20)
[2019-09-26] MEDS: RANOLAZINE ER 500 MG TAB (RANEXA) PO SCH ×2 (09:03→22:19)
[2019-09-26] MEDS: PANTOPRAZOLE 40 MG (PROTONIX) TAB PO SCH ×2 (09:03→22:18)
[2019-09-26] MEDS: LORATADINE (CLARITIN) 10 MG TAB PO SCH (09:03)
[2019-09-26] MEDS: SODIUM CHLORIDE 1 GM TABLET PO SCH ×2 (09:03→22:18)
[2019-09-26] MEDS: OXYBUTYNIN (DITROPAN) 5 MG TAB PO SCH ×2 (09:03→22:21)
[2019-09-26] MEDS: MUPIROCIN 2% OINT 22 GM (BACTROBAN) TUBE TOP SCH ×2 (09:04→22:30)
[2019-09-26] MEDS: DOCUSATE SODIUM 100 MG (COLACE) CAP PO SCH (09:04)
[2019-09-26] MEDS: polyethylene glycoL POWDER 17 GM (MIRALAX) PACK PO SCH ×2 (09:04→22:21)
[2019-09-26] MEDS: SALINE NASAL SPRAY (OCEAN) 45 ML BTL SCH (09:05)
[2019-09-26] MEDS: FLUTICASONE NASAL SPRAY (FLONASE) 16 GM BTL NS SCH (09:05)
--- NOTE | 2019-09-26 10:09 | Physical Therapy Daily Note ---
PT Daily Note-Current Subjective Pt. in bed. Agrees to Rx. States her pain is at 7/10. PT OT co Rx with communication board used . Pain Numeric Pain Scale: 7 Location: Right Location Body Site: Knee Pain Description: Ache Mental Status Patient Orientation: Person Transfers SCALE: Activities may be completed with or without assistive devices. 2-Umgcegcucb-qjfaxmk completes the activity by him/herself with no assistance from a helper. 5-Set-up or Clean-up Assistance-helper sets up or cleans up; patient completes activity. [place] assists only prior to or following the activity. 4-Supervision or Touching Assistance-helper provides verbal cues and/or touching/steadying and/or contact guard assistance as patient completes activity. Assistance may be provided throughout the activity or intermittently. 3-Partial/Moderate Assistance-helper does LESS THAN HALF the effort. [place] lifts, holds or supports trunk or limbs, but provides less than half the effort. 2-Substantial/Maximal Assistance-helper does MORE THAN HALF the effort. [place] lifts or holds trunk or limbs and provides more than half the effort. 4-Aabnmpolc-zneuag does ALL the effort. Patient does none of the effort to complete the activity. Or, the assistance of 2 or more helpers is required for the patient to complete the activity. If activity was not attempted, code reason: 7-Patient Refused. 9-Not Applicable-not attempted and the patient did not perform the activity before the current illness, exacerbation or injury. 10-Not Attempted due to Environmental Limitations-(lack of equipment, weather restraints, etc.). 88-Not Attempted due to Medical Conditions or Safety Concerns. Roll Left & Right (QC): 2 Sit to Lying (QC): 1 Lying to Sitting/Side of Bed(Q: 1 Sit to Stand (QC): 1 Chair/Uve-qm-Aqbyj Xfer(QC): 1 SPT 1-2 max assist Weight Bearing Right Lower Extremity: Right Non Weight Bearing Left Lower Extremity: Left Full Weight Bearing Exercises Seated Therapy Exercises: Long arc quads, Hip flexion, Hip abd/add Seated Reps: 12 Treatments PT OT co Rx secondary to poor level of tolerance and low level function. Pt. TRFd max assist bed to w/c, was assisted in setting up for breakfst. Pt. did consume m50-60 % of breakfast and smiled and seemed to enjoy some interaction with therapists. Assessment Current Status: Fair Progress dependent for all mobility. PT Short Term Goals Short Term Goals Time Frame: Sep 26, 2019 Roll Left & Right: 2 Sit to lyin Lying to sitting on side of be: 2 Sit to stand: 2 Chair/ika-qj-jprin transfer: 2 PT Instrument Setter Goals Instrument Setter Goals PT Instrument Setter Goals Time Frame: Oct 10, 2019 Roll Left & Right (QC): 3 Sit to Lying (QC): 3 Lying-Sitting on Side/Bed(QC): 3 Sit to Stand (QC): 3 Chair/Zcn-bs-Zescz Xfer(QC): 3 Toilet Transfer (QC): 3 Car Transfer (QC): 3 Does the Patient Walk: No and Walking Goal NOT indicated Walk 10 feet (QC): 88 Walk 50ft with 2 Turns (QC): 88 Walk 150 ft (QC): 88 Walking 10ft on Uneven Surface: 88 1 Step (curb) (QC): 88 4 Steps (QC): 88 12 Steps (QC): 88 Picking up an Object (QC): 88 Wheel 50 feet with 2 turns (QC: 4 Wheel 150 feet: 4 PT Plan Treatment/Plan Treatment Plan: Continue Plan of Care Treatment Plan: Bed Mobility, Education, Functional Activity Za, Functional Strength, Group Therapy, Gait, Safety, Therapeutic Exercise, Transfers Treatment Duration: Oct 10, 2019 Frequency: At least 5 of 7 days/Wk (IRF) Estimated Hrs Per Day: 1.5 hours per day Patient and/or Family Agrees t: Yes Safety Risks/Education Patient Education: Transfer Techniques, Correct Positioning, Safety Issues discussed that sitting up is healthy for circulation and lungs, pt. willing to sit after rx, up in w/c with LEs wlwvated, residual limb of board, call harmon at hand Time/GCodes Time In: 900 Time Out: 1000 Total Billed Treatment Time: 60 Total Billed Treatment 1,Ex 15m,FA45m 60 m co Rx w BUDDY MURPHY LOW PRESSURE BOILER OPERATOR Sep 26, 2019 10:09
--- NOTE | 2019-09-26 10:32 | PM&R Progress Note ---
Subjective HPI/CC On Admission Date Seen by Provider: Sep 26, 2019 Time Seen by Provider: 10:20 Subjective/Events-last exam Pt cries out in pain all the time Had a BM two days ago, given laxatives today Discharge to a [facility] once that is set up Labs stable Checked meds and labs Conferred with RN Reviewed therapy notes Review of Systems Neurological: Confusion Objective Exam Vital Signs Vital Signs Date Time Temp Pulse Resp B/P (MAP) Pulse Ox O2 Delivery O2 Flow Rate FiO2 09/26/19 16:00 36.4 95 14 133/77 (95) 93 Room Air Capillary Refill : Less Than 3 Seconds General Appearance: No Apparent Distress, WD/WN HEENT: PERRL/EOMI, Normal ENT Inspection, Pharynx Normal Neck: Normal Inspection, Non Tender, Supple Respiratory: Normal Breath Sounds, No Accessory Muscle Use, No Respiratory Distress Cardiovascular: Regular Rate, Rhythm, No Edema Gastrointestinal: Normal Bowel Sounds, No Organomegaly, No Pulsatile Mass, Non Tender, Soft Back: Normal Inspection, No CVA Tenderness, No Vertebral Tenderness Extremity: Other (right BKA with dressing in place. Dressing is clean and dry with no drainage.) Neurologic/Psychiatric: Alert, Depressed Affect Skin: Normal Color, Warm/Dry Lymphatic: No Adenopathy Results/Procedures Lab Patient resulted labs reviewed. FIM Transfers Therapy Code Descriptions/Definitions Functional [place] Measure: 0=Not Assessed/NA 4=Minimal Assistance 1=Total Assistance 5=Supervision or Setup 2=Maximal Assistance 6=Modified [place] 3=Moderate Assistance 7=Complete IndependenceSCALE: Activities may be completed with or without assistive devices. 2-Xkkpdireaz-jjkjkmb completes the activity by him/herself with no assistance from a helper. 5-Set-up or Clean-up Assistance-helper sets up or cleans up; patient completes activity. [place] assists only prior to or following the activity. 4-Supervision or Touching Assistance-helper provides verbal cues and/or touching/steadying and/or contact guard assistance as patient completes activity. Assistance may be provided throughout the activity or intermittently. 3-Partial/Moderate Assistance-helper does LESS THAN HALF the effort. [place] lifts, holds or supports trunk or limbs, but provides less than half the effort. 2-Substantial/Maximal Assistance-helper does MORE THAN HALF the effort. [place] lifts or holds trunk or limbs and provides more than half the effort. 4-Kjkgagznz-sdoxgl does ALL the effort. Patient does none of the effort to complete the activity. Or, the assistance of 2 or more helpers is required for the patient to complete the activity. If activity was not attempted, code reason: 7-Patient Refused. 9-Not Applicable-not attempted and the patient did not perform the activity before the current illness, exacerbation or injury. 10-Not Attempted due to Environmental Limitations-(lack of equipment, weather restraints, etc.). 88-Not Attempted due to Medical Conditions or Safety Concerns. Roll Left to Right (QC): 2 Sit to Lying (QC): 1 Sit to Stand (QC): 1 Chair/Jbk-zz-Ytdbx Xfer(QC): 1 Car Transfer (QC): 1 Gait Training Does the Patient Walk?: No and Walking Goal NOT indicated Walk 10 feet (QC): 88 Walk 50 ft with 2 Turns(QC): 88 Walk 150 ft (QC): 88 Walking 10ft/uneven surface-QC: 88 Wheelchair Training Does the Pt Use a Wheelchair?: Yes Wheel 50 ft with 2 turns (QC): 2 Wheel 150 ft (QC): 2 Type of Wheelchair: Manual Stair Training 1 Step (curb) (QC): 88 4 Steps (QC): 8 12 Steps (QC): 8 Balance Picking up an Object (QC): 88 ADL-Treatment Eating (QC): 5 (Set up) Oral Hygiene (QC): 5 (Set up to floss teeth repeatedly.) Shower/Bathe Self (QC): 2 (Pt. able to wash face and chest, as well as arms at bed level. Required max assist with all other parts.) Upper Body Dressing (QC): 2 (Pt. required max assist for UB dressing. 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 unsuccessful in revascularization at [facility] and [facility] Hyperkalemia-resolved Hyponatremia placed on fluid restriction and salt tablets baseline 131 Leukocytosis likely reactive no infection found on w/u- stable Coronary artery disease Hyperlipidemia Hypothyroidism Seizure disorder especially when hyponatremia worsens per son Seasonal allergies GERD Depression Bladder spasms DVT prophylaxis: Lovenox Plan: IRF protocol DC Fentanyl QUILT MAKER PO pain meds Dementia will slow recovery Fall risk Sundowning risk Needs [facility] failing rehab Monitor closely (1) S/P BKA (below knee amputation) Status: Acute (2) Leukocytosis Status: Acute (3) Hyponatremia Status: Chronic (4) Hyperkalemia Status: Resolved Resolution Date/Time: 09/17/19 @ 10:20 (5) Peripheral vascular disease (6) Intermittent atrial fibrillation Status: Acute (7) Seizure disorder (8) Hypothyroidism (9) Overactive bladder (10) Hyperlipemia (11) Hypertension (12) Dementia (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
[2019-09-26] MEDS ORDERED: AMLO1CAP4 PO (11:25)
[2019-09-26] MEDS ORDERED: DICY10CA12 PO (11:25)
[2019-09-26] MEDS ORDERED: MECL-172 PO (11:25)
[2019-09-26] MEDS ORDERED: LEVE250T5 PO (11:25)
[2019-09-26] MEDS ORDERED: CELE100C84 PO (11:26)
[2019-09-26] MEDS ORDERED: ONDA-105 PO (11:26)
[2019-09-26] MEDS ORDERED: PANT40TA2 PO (11:26)
[2019-09-26] MEDS ORDERED: FURO-125 PO (11:26)
[2019-09-26] MEDS ORDERED: CALC-696 PO (11:29)
[2019-09-26] MEDS ORDERED: DOCU-238 PO (11:34)
--- NOTE | 2019-09-26 11:35 | NUR ---
PT WAS UNSURE OF HER MEDICATION- I CALLED HER SON KEIRA WHO LET ME KNOW A MED WORKER (NAMED WILBUR CLARK) HELP THE PT WITH HER MEDICATION AND SETS THEM UP. I SPOKE WITH THE WORKER AND WENT THRU THE EXT MED HISTORY TO COMPLETE THE MED REC 09-06-2019 SODIUM CHLORIDE 1GM #120/30DS- THIS DOES NOT SHOW ON THE EXT MED HISTORY ALL OTHER MEDS ARE ON THE EXT MED HISTORY OTC MEDS: PROBIOTIC STOOL SOFTENER MELATONIN LORATADINE MUCINEX VIT D3 CO-Q 10 CITRACAL AZO CRANBERRY ASPIRIN TYLENOL
--- NOTE | 2019-09-26 14:17 | Occupational Ther Daily Note ---
OT Current Status-Daily Note Subjective Pt. reports that her shoulders are sore during treatment, but does not report pain level. Pt. has had pain medication. Appearance Pt. is in bed when therapy enters room. Has just been rolled to be taken off bedpan. Therapy takes over for nursing. Mental Status/Objective Patient Orientation: Unable to Assess ADL-Treatment Therapy Code Descriptions/Definitions Functional [place] Measure: 0=Not Assessed/NA 4=Minimal Assistance 1=Total Assistance 5=Supervision or Setup 2=Maximal Assistance 6=Modified [place] 3=Moderate Assistance 7=Complete IndependenceSCALE: Activities may be completed with or without assistive devices. 6-Dcdjsnwzvl-kxfrssi completes the activity by him/herself with no assistance from a helper. 5-Set-up or Clean-up Assistance-helper sets up or cleans up; patient completes activity. [place] assists only prior to or following the activity. 4-Supervision or Touching Assistance-helper provides verbal cues and/or touching/steadying and/or contact guard assistance as patient completes activity. Assistance may be provided throughout the activity or intermittently. 3-Partial/Moderate Assistance-helper does LESS THAN HALF the effort. [place] lifts, holds or supports trunk or limbs, but provides less than half the effort. 2-Substantial/Maximal Assistance-helper does MORE THAN HALF the effort. [place] lifts or holds trunk or limbs and provides more than half the effort. 9-Dfahzvwvb-uainwd does ALL the effort. Patient does none of the effort to complete the activity. Or, the assistance of 2 or more helpers is required for the patient to complete the activity. If activity was not attempted, code reason: 7-Patient Refused. 9-Not Applicable-not attempted and the patient did not perform the activity before the current illness, exacerbation or injury. 10-Not Attempted due to Environmental Limitations-(lack of equipment, weather restraints, etc.). 88-Not Attempted due to Medical Conditions or Safety Concerns. Eating (QC): 4 (SBA and set up. Pt. eats while sitting up in wheelchair. Will only use spoon and not fork. Pt. is able to get food onto spoon and then into mouth, but requires assistance to push food toward edge of plate.) On/Off Footwear: 1 (Left slipper sock.) Toileting Hygiene (QC): 1 (Pt. requires assist x 2 to roll and cleanse snow area.) Toilet Transfer (QC): 1 (Dependent assist to roll off bedpan.) Other Treatment OT/PT co-treatment due to need of skilled assist x 2. PT assisted with mobility while OT facilitated ADL skills. After pt. snow area cleansed in bed, pt. transferred supine-sit with max assist. Transferred to wheelchair with dependent assist x 2 for stand pivot. Pt. engaged in feeding task while she completed LE exercises from sitting position. Talked with her about memories, as well as the current book she is reading. Pt. able to feed self and talk. After feeding task, OT engaged pt. in UE exercise with yellow hand sponge while PT assisted with positioning of right LE in seat as well as mobility of left LE. Pt. is difficult at time to re-direct as she is very [place]. Attempted to engage pt. in brushing hair, but she closes eyes and states that she can't do this. Slide board is positioned under right LE to keep knee in extension. Padding placed on board for comfort level. Pt. is communicated with via dry erase board. Pt. up in wheelchair with all needs met after treatment. Education OT Patient Education: Correct positioning, Exercise program, Modified ADL techniques, Progress toward Goal/Update tx plan, Purpose of tx/functional activities, Reviewed precautions, Rehab process, Transfer techniques Teaching Recipient: Patient Teaching Methods: Demonstration, Discussion Response to Teaching: Reinforcement Needed OT Short Term Goals Short Term Goals Time Frame: Sep 26, 2019 Eatin (Min assist) Oral hygiene: 3 (Min assist) Toileting hygiene: 2 Shower/bathe self: 3 (Mod assist) Upper body dressin (Mod) Lower body dressin Putting on/taking off footwear: 2 OT Market Research Specialist Goals Detention Goals Time Frame: Oct 10, 2019 Eating (QC): 4 Oral Hygiene (QC): 4 Toileting Hygiene (QC): 3 (Min) Shower/Bathe Self (QC): 3 (min) Upper Body Dressing (QC): 3 (Min) Lower Body Dressing (QC): 3 (Min) On/Off Footwear (QC): 3 (MIn) Additional Goals: 1-Demonstrate ADL Tasks, 2-Verbalize Understanding, 3- ImproveStrength/Za 1=Demonstrate adherence to instructed precautions during ADL tasks. 2=Patient will verbalize/demonstrate understanding of assistive devices/modifications for ADL. 3=Patient will improve strength/tolerance for activity to enable patient to perform ADL's. OT Education/Plan Problem List/Assessment Assessment: Decreased Activ Tolerance, Decreased UE Strength, Dependent Tra nsfers, Impaired Bed Mobility, Impaired Cognition, Impaired Funct Balance, Impaired I ADL's, Impaired Self-Care Skills, Restricted Funct UE ROM Discharge Recommendations Plan/Recommendations: Continue POC Therapy Discharge Recommendati: 24 Hour Supervision Treatment Plan/Plan of Care Treatment,Training & Education: Yes Patient would benefit from OT for education, treatment and training to promote independence in ADL's, mobility, safety and/or upper extremity function for ADL's. Plan of Care: ADL Retraining, Caregiver Training, Functional Mobility, Group Exercise/Act as Ind, UE Funct Exercise/Act Treatment Duration: Oct 10, 2019 Frequency: At least 5 of 7 days/Wk (IRF) Estimated Hrs Per Day: 1.5 hours per day Agreement: Yes Rehab Potential: Guarded Time/GCodes Start Time: 09:00 Stop Time: 10:00 Total Time Billed (hr/min): 60 Billed Treatment Time 1, ADL x 45minutes, Ex x 15minutes Co-treatment with PT. Please see above note for designated roles. TERESE REYNOSO OT Sep 26, 2019 14:17
--- NOTE | 2019-09-26 14:25 | Occupational Ther Daily Note ---
OT Current Status-Daily Note Subjective Pt. states that she has to have a BM as soon as therapy enters room. Declines using a bedpan. No pain reported. Mental Status/Objective Patient Orientation: Unable to Assess ADL-Treatment Therapy Code Descriptions/Definitions Functional [place] Measure: 0=Not Assessed/NA 4=Minimal Assistance 1=Total Assistance 5=Supervision or Setup 2=Maximal Assistance 6=Modified [place] 3=Moderate Assistance 7=Complete IndependenceSCALE: Activities may be completed with or without assistive devices. 2-Fwvszrexqp-rojzfaj completes the activity by him/herself with no assistance from a helper. 5-Set-up or Clean-up Assistance-helper sets up or cleans up; patient completes activity. [place] assists only prior to or following the activity. 4-Supervision or Touching Assistance-helper provides verbal cues and/or touching/steadying and/or contact guard assistance as patient completes activity. Assistance may be provided throughout the activity or intermittently. 3-Partial/Moderate Assistance-helper does LESS THAN HALF the effort. [place] lifts, holds or supports trunk or limbs, but provides less than half the effort. 2-Substantial/Maximal Assistance-helper does MORE THAN HALF the effort. [place] lifts or holds trunk or limbs and provides more than half the effort. 1-Iadjmjqsd-zcbkbf does ALL the effort. Patient does none of the effort to complete the activity. Or, the assistance of 2 or more helpers is required for the patient to complete the activity. If activity was not attempted, code reason: 7-Patient Refused. 9-Not Applicable-not attempted and the patient did not perform the activity before the current illness, exacerbation or injury. 10-Not Attempted due to Environmental Limitations-(lack of equipment, weather restraints, etc.). 88-Not Attempted due to Medical Conditions or Safety Concerns. Eating (QC): 4 (SBA with bringing drink to mouth. Pt. concerned that drink is too full and that she will spill it.) Toileting Hygiene (QC): 1 Toilet Transfer (QC): 1 Other Treatment Pt. declines all attempts at using bedpan. Pt. rolls with dependent assist from side to side for OT to position bedpan. Once pt. is positioned, she reports that she is going to be sick and requests for contreras to throw up in. OT gives her this, and while OT is present, pt. continues to burp and reports feeling ill. As soon as OT states that pt. will be given some privacy to use bedpan, pt. puts down emesis contreras and requests to have her book. Pt. is observed and reads, reaches for gatorade drink during toileting task. OT comes back into room and pt. becomes upset, saying that she is being rushed. OT asks pt. if there is anything that she needs. She requests sprite. OT fills cup 1/2 full and gives to pt. with straw. Pt. is able to bring to mouth but reports that she might spill it. Pt. requests for OT to place drink back into can, and to put straw in can. OT begins to do this, but then pt. becomes upset that there will be too much liquid in can. Pt. continually declines to get off bedpan, and so nursing is notified that pt. is still on. Pt. talks throughout session about things that come into her mind, that were not part of the conversation. All needs are met and pt. is happy to have her book with her. Education OT Patient Education: Correct positioning, Modified ADL techniques, Progress toward Goal/Update tx plan, Purpose of tx/functional activities, Reviewed precautions, Rehab process, Transfer techniques Teaching Recipient: Patient Teaching Methods: Demonstration, Discussion Response to Teaching: Unable to Comprehend, Reinforcement Needed OT Short Term Goals Short Term Goals Time Frame: Sep 26, 2019 Eatin (Min assist) Oral hygiene: 3 (Min assist) Toileting hygiene: 2 Shower/bathe self: 3 (Mod assist) Upper body dressin (Mod) Lower body dressin Putting on/taking off footwear: 2 OT Casing Tester Goals [facility] Goals Time Frame: Oct 10, 2019 Eating (QC): 4 Oral Hygiene (QC): 4 Toileting Hygiene (QC): 3 (Min) Shower/Bathe Self (QC): 3 (min) Upper Body Dressing (QC): 3 (Min) Lower Body Dressing (QC): 3 (Min) On/Off Footwear (QC): 3 (MIn) Additional Goals: 1-Demonstrate ADL Tasks, 2-Verbalize Understanding, 3- ImproveStrength/Za 1=Demonstrate adherence to instructed precautions during ADL tasks. 2=Patient will verbalize/demonstrate understanding of assistive devices/modifications for ADL. 3=Patient will improve strength/tolerance for activity to enable patient to perform ADL's. OT Education/Plan Problem List/Assessment Assessment: Decreased Activ Tolerance, Decreased UE Strength, Dependent Transfers, Impaired Bed Mobility, Impaired Coordination, Impaired Funct Balance, Impaired I ADL's, Impaired Self-Care Skills, Restricted Funct UE ROM Discharge Recommendations Plan/Recommendations: Continue POC Therapy Discharge Recommendati: 24 Hour Supervision Treatment Plan/Plan of Care Treatment,Training & Education: Yes Patient would benefit from OT for education, treatment and training to promote independence in ADL's, mobility, safety and/or upper extremity function for ADL' s. Plan of Care: ADL Retraining, Caregiver Training, Functional Mobility, Group Exercise/Act as Ind, UE Funct Exercise/Act Treatment Duration: Oct 10, 2019 Frequency: At least 5 of 7 days/Wk (IRF) Estimated Hrs Per Day: 1.5 hours per day Agreement: Yes Rehab Potential: Guarded Time/GCodes Start Time: 13:00 Stop Time: 13:30 Total Time Billed (hr/min): 30 Billed Treatment Time 1, ADL x 2 TERESE REYNOSO OT Sep 26, 2019 14:25
--- NOTE | 2019-09-26 14:36 | Physical Therapy Daily Note ---
PT Daily Note-Current Subjective Pt. in bed asleep, agrees to Rx for LE exercises. Pt. indicates she is on bedpan. Pain Location: No Pain Reported Transfers SCALE: Activities may be completed with or without assistive devices. 7-Ykyaaipsoo-vpbpazs completes the activity by him/herself with no assistance from a helper. 5-Set-up or Clean-up Assistance-helper sets up or cleans up; patient completes activity. Dante assists only prior to or following the activity. 4-Supervision or Touching Assistance-helper provides verbal cues and/or touching/steadying and/or contact guard assistance as patient completes activity. Assistance may be provided throughout the activity or intermittently. 3-Partial/Moderate Assistance-helper does LESS THAN HALF the effort. Dante li fts, holds or supports trunk or limbs, but provides less than half the effort. 2-Substantial/Maximal Assistance-helper does MORE THAN HALF the effort. Dante lifts or holds trunk or limbs and provides more than half the effort. 6-Uaflmfulk-houppf does ALL the effort. Patient does none of the effort to complete the activity. Or, the assistance of 2 or more helpers is required for the patient to complete the activity. If activity was not attempted, code reason: 7-Patient Refused. 9-Not Applicable-not attempted and the patient did not perform the activity before the current illness, exacerbation or injury. 10-Not Attempted due to Environmental Limitations-(lack of equipment, weather restraints, etc.). 88-Not Attempted due to Medical Conditions or Safety Concerns. Roll Left & Right (QC): 3 Weight Bearing Right Lower Extremity: Right Non Weight Bearing Left Lower Extremity: Left Full Weight Bearing Exercises Supine Ex: Ankle pumps (L gentle PAAROM), Rolling, Heel Slides, Short Arc Quads, Scooting (assisted), Straight leg raise, Hip abd/add Supine Reps: 20 Treatments rolling and assist off bed contreras , max assist to clean and change pad , pull up in bed etc, pt. with call harmon and positioned to left side with pillow support after Rx Assessment Current Status: Fair Progress PT Short Term Goals Short Term Goals Time Frame: Sep 26, 2019 Roll Left & Right: 2 Sit to lyin Lying to sitting on side of be: 2 Sit to stand: 2 Chair/wlm-yy-bhchf transfer: 2 PT Snf Goals Cosmetics Machine Operator Goals PT Snf Goals Time Frame: Oct 10, 2019 Roll Left & Right (QC): 3 Sit to Lying (QC): 3 Lying-Sitting on Side/Bed(QC): 3 Sit to Stand (QC): 3 Chair/Cha-bn-Ugkza Xfer(QC): 3 Toilet Transfer (QC): 3 Car Transfer (QC): 3 Does the Patient Walk: No and Walking Goal NOT indicated Walk 10 feet (QC): 88 Walk 50ft with 2 Turns (QC): 88 Walk 150 ft (QC): 88 Walking 10ft on Uneven Surface: 88 1 Step (curb) (QC): 88 4 Steps (QC): 88 12 Steps (QC): 88 Picking up an Object (QC): 88 Wheel 50 feet with 2 turns (QC: 4 Wheel 150 feet: 4 PT Plan Treatment/Plan Treatment Plan: Continue Plan of Care Treatment Plan: Bed Mobility, Education, Functional Activity Za, Functional Strength, Group Therapy, Gait, Safety, Therapeutic Exercise, Transfers Treatment Duration: Oct 10, 2019 Frequency: At least 5 of 7 days/Wk (IRF) Estimated Hrs Per Day: 1.5 hours per day Patient and/or Family Agrees t: Yes Safety Risks/Education Patient Education: Correct Positioning Time/GCodes Time In: 1400 Time Out: 1430 Total Billed Treatment Time: 30 Total Billed Treatment 1,FA15m,EX15m BUDDY FUENTES MEDIA PROFESSIONAL Sep 26, 2019 14:36
--- NOTE | 2019-09-26 15:17 | NUR ---
CM/SS DISCHARGE PLANNING Patient has been accepted for Medicare skilled admission on Saturday, September 28, 2019. Confirmed with son/POA Carl that he will also be admitting his father there in assisted living status as earlier noted so that patient/spouse can quarantine together. [facility] Assessment remains suspended due to Covid19. Continue discharge planning and assist Carl as well as patient as possible.
[2019-09-26 16:00] VITALS: BP 133/77
--- NOTE | 2019-09-26 16:15 | NUR ---
HERE TO EAT SUPPER WITH [facility]. GUEST TRAY ORDERED FOR . BOTH IN [employer], CONSUMING SUPPER AND CONVERSING THEY EAT.
[2019-09-26] MEDS: SIMvastatin 20 MG (ZOCOR) TAB PO SCH (22:20)
[2019-09-26] MEDS: SERTRALINE 50 MG (ZOLOFT) TABLET PO SCH (22:20)
[2019-09-27] MEDS: ONDANSETRON 4 MG (ZOFRAN) ORAL DISSOLVE TAB PO PRN (00:01)
[2019-09-27] MEDS: oxyCODONE 5 MG/5 ML ORAL SOLN (roxiCODONE) 5 ML UDC PO PRN (03:54)
[2019-09-27 04:48] LABS: BASOPHILS % (AUTO) 0 % (0-10); EOSINOPHILS % (AUTO) 0 % (0-10); HEMATOCRIT 24 % (35-52); HEMOGLOBIN 7.8 G/DL (11.5-16.0); LYMPHOCYTES # (AUTO) 1.7 X 10^3 (1.0-4.0); LYMPHOCYTES % (AUTO) 9 % (12-44); MEAN CORPUSCULAR HEMOGLOBIN 32 PG (25-34); MEAN CORPUSCULAR HGB CONC 33 G/DL (32-36); MEAN CORPUSCULAR VOLUME 97 FL (80-99); MEAN PLATELET VOLUME 10.4 FL (7.4-10.4); MONOCYTES # (AUTO) 1.6 X 10^3 (0.0-1.0); MONOCYTES % (AUTO) 8 % (0-12); NEUTROPHILS # (AUTO) 16.7 X 10^3 (1.8-7.8); NEUTROPHILS % (AUTO) 83 % (42-75); PLATELET COUNT 444 10^3/uL (130-400); RED CELL DISTRIBUTION WIDTH 13.2 % (10.0-14.5)
[2019-09-27 04:57] LABS: ALBUMIN 2.6 GM/DL (3.2-4.5); CHLORIDE 99 MMOL/L (98-107); POTASSIUM 3.9 MMOL/L (3.6-5.0); SODIUM 132 MMOL/L (135-145)
[2019-09-27 04:58] LABS: CALCIUM 8.1 MG/DL (8.5-10.1)
[2019-09-27 05:00] LABS: GLUCOSE 121 MG/DL (70-105); TOTAL PROTEIN 5.1 GM/DL (6.4-8.2)
[2019-09-27 05:01] LABS: BILIRUBIN,TOTAL 0.3 MG/DL (0.1-1.0); CARBON DIOXIDE 23 MMOL/L (21-32)
[2019-09-27 05:03] LABS: ALKALINE PHOSPHATASE 58 U/L (40-136); CREATININE SERUM 0.57 MG/DL (0.60-1.30); GFR ESTIMATED > 60
[2019-09-27 05:04] LABS: BUN/CREATININE RATIO 14
[2019-09-27 05:06] LABS: ALANINE AMINOTRANSFERASE 11 U/L (0-55)
[2019-09-27 05:40] LABS: ANISOCYTOSIS SLIGHT; HYPOCHROMASIA MODERATE; LYMPHOCYTES % (MANUAL) 7 %; MONOCYTES % (MANUAL) 8 %; NEUTROPHILS % (MANUAL) 85 %; POIKILOCYTOSIS SLIGHT
[2019-09-27] MEDS: CATHETER FLUSH 10 ML SYR IV SCH ×3 (05:58→22:45)
[2019-09-27] MEDS: LEVOTHYROXINE 50 MCG (LEVOTHROID) TAB PO SCH (05:58)
[2019-09-27 06:15] VITALS: BP 132/62
[2019-09-27] MEDS: ASPIRIN E.C. 81 MG (ECOTRIN) TAB PO SCH (08:18)
[2019-09-27] MEDS: LORATADINE (CLARITIN) 10 MG TAB PO SCH (08:18)
[2019-09-27] MEDS: SALINE NASAL SPRAY (OCEAN) 45 ML BTL SCH (08:18)
[2019-09-27] MEDS: SENNA W/DOCUSATE (SENOKOT S) TABLET PO SCH (08:18)
[2019-09-27] MEDS: FLUTICASONE NASAL SPRAY (FLONASE) 16 GM BTL NS SCH (08:18)
[2019-09-27] MEDS: DOCUSATE SODIUM 100 MG (COLACE) CAP PO SCH (08:19)
[2019-09-27] MEDS: ENOXAPARIN 30 MG/0.3 ML (LOVENOX) SYR SC SCH ×2 (08:19→21:42)
[2019-09-27] MEDS: OXYBUTYNIN (DITROPAN) 5 MG TAB PO SCH ×2 (08:19→21:35)
[2019-09-27] MEDS: SODIUM CHLORIDE 1 GM TABLET PO SCH ×2 (08:19→21:38)
[2019-09-27] MEDS: PANTOPRAZOLE 40 MG (PROTONIX) TAB PO SCH ×2 (08:19→21:35)
[2019-09-27] MEDS: RANOLAZINE ER 500 MG TAB (RANEXA) PO SCH ×2 (08:19→21:35)
[2019-09-27] MEDS: LEVETIRACETAM 500 MG (KEPPRA) TAB PO SCH ×2 (08:19→21:36)
[2019-09-27] MEDS: guaiFENesin (MUCINEX) 600 MG TAB PO SCH (08:19)
[2019-09-27] MEDS: MUPIROCIN 2% OINT 22 GM (BACTROBAN) TUBE TOP SCH ×2 (08:20→21:48)
[2019-09-27] MEDS: polyethylene glycoL POWDER 17 GM (MIRALAX) PACK PO SCH ×2 (08:28→21:37)
--- NOTE | 2019-09-27 08:58 | Speech Therapy Daily Note ---
Speech Daily Progress Note Subjective Date Seen by Provider: Sep 27, 2019 Time Seen by Provider: 00:30 Patient stated to the nurse she thought she was wet upon my entering the room. Nurse assisted the patient in changing gown and brief. Objective Patient noted to follow directions with needs with 80% and moderate verbal and/or visual cuing. Assessment Assessment Current Status: Fair Progress Treatment Plan Discontinue ST Speech Short Term Goals Short Term Goals Short Term Goals 1) Patient will complete memory tasks related to her daily needs at 80% with minimal cues. 2) Patient will complete safety awareness tasks related to her daily needs at 80% with minimal cues. 3) Patient will complete problem solving tasks related to her daily needs at 80% with minimal cues. Speech Jail Goals Patient Care Assistant Goals Patient will improve cognitive-communication necessary for safety and daily living tasks with minimal assist. Speech-Plan Patient/Family Goals Patient/Family Goals: Patient is scheduled for discharge to a local SNF on 09/28/2019 Treatment Plan Speech Therapy Treatment Plan: Discontinue ST Treatment Duration: Sep 30, 2019 Frequency: 5 times per week Estimated Hrs Per Day: .5 hour per day Rehab Potential: Guarded Barriers to Learning: Patient's cognitive deficits, medical status, [place] Safety Risks/Education Teaching Recipient: Patient Teaching Methods: Discussion Response to Teaching: Verbalize Understanding, Reinforcement Needed Education Topics Provided: Continued safety upon discharge Time Speech Therapy Time In: 08:00 Speech Therapy Time Out: 08:30 Total Billed Time: 30 Billed Treatment Time 1, SLTS No QUALITY CODES: EXPRESSION OF IDEAS/WANTS: 3 UNDERSTANDING VERBAL CONTENT: 3 BRIEF INTERVIEW MENTAL STATUS: YES REPETITION OF 3 WORDS: 2 TEMPORAL ORIENTATION: YEAR: NO, MONTH: NO, DAY: NO RECALL SOCK: NO, COLOR: NO, BED: NO MEMORY/RECALL ABILITY: THAT SHE IS IN THE HOSPITAL JUAN ALBERTO GALVAN Sep 27, 2019 08:57
--- NOTE | 2019-09-27 09:15 | PM&R Progress Note ---
Subjective HPI/CC On Admission Date Seen by Provider: Sep 27, 2019 Time Seen by Provider: 09:15 Subjective/Events-last exam DC planned for [facility] tomorrow Denies any significant new issues Overall feels pretty good but she cries when anyone touches her even Fall risk remains Checked meds and labs Conferred with RN Reviewed therapy notes Review of Systems Musculoskeletal: leg pain Neurological: Confusion Objective Exam Vital Signs Vital Signs Date Time Temp Pulse Resp B/P (MAP) Pulse Ox O2 Delivery O2 Flow Rate FiO2 09/27/19 18:00 36.8 99 18 162/69 (100) 97 Room Air Capillary Refill : Less Than 3 Seconds General Appearance: No Apparent Distress, WD/WN HEENT: PERRL/EOMI, Normal ENT Inspection, Pharynx Normal Neck: Normal Inspection, Non Tender, Supple Respiratory: Normal Breath Sounds, No Accessory Muscle Use, No Respiratory Distress Cardiovascular: Regular Rate, Rhythm, No Edema Gastrointestinal: Normal Bowel Sounds, No Organomegaly, No Pulsatile Mass, Non Tender, Soft Back: Normal Inspection, No CVA Tenderness, No Vertebral Tenderness Extremity: Other (right BKA with dressing in place. Dressing is clean and dry with no drainage.) Neurologic/Psychiatric: Alert, Depressed Affect Skin: Normal Color, Warm/Dry Lymphatic: No Adenopathy Results/Procedures Lab Laboratory Tests 09/27/19 04:35 Patient resulted labs reviewed. FIM Transfers Therapy Code Descriptions/Definitions Functional [place] Measure: 0=Not Assessed/NA 4=Minimal Assistance 1=Total Assistance 5=Supervision or Setup 2=Maximal Assistance 6=Modified [place] 3=Moderate Assistance 7=Complete IndependenceSCALE: Activities may be completed with or without assistive devices. 9-Wlfkppcrlm-atjukvx completes the activity by him/herself with no assistance from a helper. 5-Set-up or Clean-up Assistance-helper sets up or cleans up; patient completes activity. [place] assists only prior to or following the activity. 4-Supervision or Touching Assistance-helper provides verbal cues and/or to uching/steadying and/or contact guard assistance as patient completes activity. Assistance may be provided throughout the activity or intermittently. 3-Partial/Moderate Assistance-helper does LESS THAN HALF the effort. [place] lifts, holds or supports trunk or limbs, but provides less than half the effort. 2-Substantial/Maximal Assistance-helper does MORE THAN HALF the effort. [place] lifts or holds trunk or limbs and provides more than half the effort. 5-Szbgsnyru-xobayn does ALL the effort. Patient does none of the effort to complete the activity. Or, the assistance of 2 or more helpers is required for the patient to complete the activity. If activity was not attempted, code reason: 7-Patient Refused. 9-Not Applicable-not attempted and the patient did not perform the activity before the current illness, exacerbation or injury. 10-Not Attempted due to Environmental Limitations-(lack of equipment, weather restraints, etc.). 88-Not Attempted due to Medical Conditions or Safety Concerns. Roll Left to Right (QC): 3 Sit to Lying (QC): 1 Sit to Stand (QC): 1 Chair/Gml-uh-Schie Xfer(QC): 1 Car Transfer (QC): 1 Gait Training Does the Patient Walk?: No and Walking Goal NOT indicated Walk 10 feet (QC): 88 Walk 50 ft with 2 Turns(QC): 88 Walk 150 ft (QC): 88 Walking 10ft/uneven surface-QC: 88 Wheelchair Training Does the Pt Use a Wheelchair?: Yes Wheel 50 ft with 2 turns (QC): 2 Wheel 150 ft (QC): 2 Type of Wheelchair: Manual Stair Training 1 Step (curb) (QC): 88 4 Steps (QC): 8 12 Steps (QC): 8 Balance Picking up an Object (QC): 88 ADL-Treatment Eating (QC): 4 (SBA with bringing drink to mouth. Pt. concerned that drink is too full and that she will spill it.) Oral Hygiene (QC): 5 (Set up to floss teeth repeatedly.) Shower/Bathe Self (QC): 2 (Pt. able to wash face and chest, as well as arms at bed level. Required max assist with all other parts.) Upper Body Dressing (QC): 2 (Pt. required max assist for UB dressing. 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 unsuccessful in revascularization at [facility] and [facility] Hyperkalemia-resolved Hyponatremia placed on fluid restriction and salt tablets baseline 131 Leukocytosis likely reactive no infection found on w/u- stable Coronary artery disease Hyperlipidemia Hypothyroidism Seizure disorder especially when hyponatremia worsens per son Seasonal allergies GERD Depression Bladder spasms DVT prophylaxis: Lovenox Plan: IRF protocol DC 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 Dementia will slow recovery Fall risk Sundowning risk Needs long-term failing rehab Monitor closely Continue pain medication at discharge going to long-term tomorrow (1) S/P BKA (below knee amputation) Status: Acute (2) Leukocytosis Status: Acute (3) Hyponatremia Status: Chronic (4) Hyperkalemia Status: Resolved Resolution Date/Time: 09/17/19 @ 10:20 (5) Peripheral vascular disease (6) Intermittent atrial fibrillation Status: Acute (7) Seizure disorder (8) Hypothyroidism (9) Overactive bladder (10) Hyperlipemia (11) Hypertension (12) Dementia (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
--- NOTE | 2019-09-27 10:32 | Physical Therapy Daily Note ---
PT Daily Note-Current Subjective Pt laying Supine in bed upon arrival. Pt agrees to PT/OT co-treat. Pt needs skill of 2 clinicians due to pt's lack of balance, activity tolerance and strength. Pain Numeric Pain Scale: 10-Worst Possible Pain Comment: Pt occasionally screams out & grabs L LE with movement. Mental Status Patient Orientation: Person, Confused Transfers SCALE: Activities may be completed with or without assistive devices. 1-Skbekshkar-nzcriqh completes the activity by him/herself with no assistance from a helper. 5-Set-up or Clean-up Assistance-helper sets up or cleans up; patient completes activity. [place]ermit assists only prior to or following the activity. 4-Supervision or Touching Assistance-helper provides verbal cues and/or touching/steadying and/or contact guard assistance as patient completes activity. Assistance may be provided throughout the activity or intermittently. 3-Partial/Moderate Assistance-helper does LESS THAN HALF the effort. Kermit lifts, holds or supports trunk or limbs, but provides less than half the effort. 2-Substantial/Maximal Assistance-helper does MORE THAN HALF the effort. Kermit lifts or holds trunk or limbs and provides more than half the effort. 3-Whzwtllru-kxlowz does ALL the effort. Patient does none of the effort to complete the activity. Or, the assistance of 2 or more helpers is required for the patient to complete the activity. If activity was not attempted, code reason: 7-Patient Refused. 9-Not Applicable-not attempted and the patient did not perform the activity before the current illness, exacerbation or injury. 10-Not Attempted due to Environmental Limitations-(lack of equipment, weather restraints, etc.). 88-Not Attempted due to Medical Conditions or Safety Concerns. Roll Left & Right (QC): 2 Sit to Lying (QC): 2 Lying to Sitting/Side of Bed(Q: 2 Sit to Stand (QC): 2 Chair/Sfk-xa-Fgovw Xfer(QC): 2 Toilet Transfer (QC): 2 Car Transfer (QC): 88 Weight Bearing Right Lower Extremity: Right Non Weight Bearing Left Lower Extremity: Left Full Weight Bearing Gait Training Does the Patient Walk?: No and Walking Goal NOT indicated Walk 10 feet (QC): 88 Walk 50 ft with 2 Turns(QC): 88 Walk 150 ft (QC): 88 Walking 10ft/uneven surface-QC: 88 Gait Persons Needed: 88 Wheelchair Training Does the Pt Use a Wheelchair?: Yes Wheel 50 ft with 2 turns (QC): 2 Wheel 150 ft (QC): 7 Type of Wheelchair: Manual Pain limits movement. Stair Training 1 Step (curb) (QC): 88 4 Steps (QC): 88 12 Steps (QC): 88 Balance Picking up an Object (QC): 88 Exercises Supine Ex: Quad Set, Straight leg raise, Hip abd/add Supine Reps: 20 Treatments Pt completes bed mobility during bed bath. Pt transfers to EOB with assistance. Pt sits EOB to work on static balance. Pt transfers to recliner then completes Supine Ex in recliner at end of Rx. Pt has all needs met, call light in hand. Assessment Current Status: Fair Progress Pain limits participation as well as pt is easily distracted and needs VC to refocus. PT Short Term Goals Short Term Goals Time Frame: Sep 26, 2019 Roll Left & Right: 2 Sit to lyin Lying to sitting on side of be: 2 Sit to stand: 2 Chair/cgt-pi-zvkka transfer: 2 PT Head Bucker Goals Snf Goals PT Head Bucker Goals Time Frame: Oct 10, 2019 Roll Left & Right (QC): 3 Sit to Lying (QC): 3 Lying-Sitting on Side/Bed(QC): 3 Sit to Stand (QC): 3 Chair/Jyq-av-Vbrlb Xfer(QC): 3 Toilet Transfer (QC): 3 Car Transfer (QC): 3 Does the Patient Walk: No and Walking Goal NOT indicated Walk 10 feet (QC): 88 Walk 50ft with 2 Turns (QC): 88 Walk 150 ft (QC): 88 Walking 10ft on Uneven Surface: 88 1 Step (curb) (QC): 88 4 Steps (QC): 88 12 Steps (QC): 88 Picking up an Object (QC): 88 Wheel 50 feet with 2 turns (QC: 4 Wheel 150 feet: 4 PT Plan Problem List Problem List: Activity Tolerance, Functional Strength, Safety, Balance, Transfer, Bed Mobility Treatment/Plan Treatment Plan: Continue Plan of Care Treatment Plan: Bed Mobility, Education, Functional Activity Za, Functional Strength, Group Therapy, Gait, Safety, Therapeutic Exercise, Transfers Treatment Duration: Oct 10, 2019 Frequency: At least 5 of 7 days/Wk (IRF) Estimated Hrs Per Day: 1.5 hours per day Patient and/or Family Agrees t: Yes Safety Risks/Education Patient Education: Correct Positioning, Safety Issues Teaching Recipient: Patient Teaching Methods: Demonstration, Discussion Response to Teaching: Reinforcement Needed Time/GCodes Time In: 900 Time Out: 1000 Total Billed Treatment Time: 60 Total Billed Treatment 1, FA x3 (45m) & EX (15m) DEE MADRID WET PROCESS ASSISTANT HEAD MILLER Sep 27, 2019 10:32
--- NOTE | 2019-09-27 10:33 | Occupational Ther Daily Note ---
OT Current Status-Daily Note Subjective Pt in bed when therapy entered the room. No c/o pain. Pt. agreed to therapy Mental Status/Objective Patient Orientation: Unable to Assess Attachments: IV ADL-Treatment Therapy Code Descriptions/Definitions Functional [place] Measure: 0=Not Assessed/NA 4=Minimal Assistance 1=Total Assistance 5=Supervision or Setup 2=Maximal Assistance 6=Modified [place] 3=Moderate Assistance 7=Complete IndependenceSCALE: Activities may be completed with or without assistive devices. 4-Msrjlavcyt-wiarejo completes the activity by him/herself with no assistance from a helper. 5-Set-up or Clean-up Assistance-helper sets up or cleans up; patient completes activity. [place] assists only prior to or following the activity. 4-Supervision or Touching Assistance-helper provides verbal cues and/or touching/steadying and/or contact guard assistance as patient completes activity. Assistance may be provided throughout the activity or intermittently. 3-Partial/Moderate Assistance-helper does LESS THAN HALF the effort. [place] lifts, holds or supports trunk or limbs, but provides less than half the effort. 2-Substantial/Maximal Assistance-helper does MORE THAN HALF the effort. [place] lifts or holds trunk or limbs and provides more than half the effort. 6-Lglybqwtt-sqvidf does ALL the effort. Patient does none of the effort to complete the activity. Or, the assistance of 2 or more helpers is required for the patient to complete the activity. If activity was not attempted, code reason: 7-Patient Refused. 9-Not Applicable-not attempted and the patient did not perform the activity before the current illness, exacerbation or injury. 10-Not Attempted due to Environmental Limitations-(lack of equipment, weather restraints, etc.). 88-Not Attempted due to Medical Conditions or Safety Concerns. Eating (QC): 5 (Per nursing) Oral Hygiene (QC): 5 (Setup assistance) Shower/Bathe Self (QC): 2 (Max assist) Upper Body Dressing (QC): 2 (Max assist. OT simulated shirt with hospital gown.) Lower Body Dressing (QC): 88 (Pt. does not have appropriate clothing. Does not want OT to provide appropriate clothing due to right LE wound, as well as, incontence issues.) On/Off Footwear: 1 (Dependent) Toileting Hygiene (QC): 2 (Pt. can cleanse front snow area with multiple cues, however, often requests for OT to complete.) Toilet Transfer (QC): 7 (Pt. refuses to attempt BSC.) Co-treated with PT as the pt required 2 skilled clinicians due to medical complexity. OT focusing on ADL skills, UE strength and ROM, and functional transfers. PT focusing on LE strength, bed mobility, and transfers. Pt. agreed to taking a bed bath with therapy. Pt. required max assist for bathing and drying. Pt. washed face and part of chest when handed a wash cloth and cued to initiate activity. Pt. required max assist to [facility] gown facilitating by threading her arms through sleeves. Pt. required dependent as sist to [facility] grippy socks. Pt. agreed to brushing teeth and required set up/clean up to complete task. Pt. requires constant cueing and rest breaks due to low activity tolerance/ reported nausea, as well as, decreased hearing. Pt. completed B UE exercises while in bed using yellow therapy sponge as well as AROM exercises to tolerance level . Pt. then transferred supine-sit with dependent assist. Pt. sat EOB with CGA for multiple minutes, only laying back when she felt a therapist behind her. Pt transferred to recliner with assist x2 for stand pivot. All needs met. Pt up in reclining chair. Education OT Patient Education: Correct positioning, Exercise program, Modified ADL techniques, Progress toward Goal/Update tx plan, Purpose of tx/functional activities, Rehab process, Transfer techniques Teaching Recipient: Patient Teaching Methods: Demonstration, Discussion Response to Teaching: Reinforcement Needed OT Short Term Goals Short Term Goals Time Frame: Sep 26, 2019 Eatin (Min assist) Oral hygiene: 3 (Min assist) Toileting hygiene: 2 Shower/bathe self: 3 (Mod assist) Upper body dressin (Mod) Lower body dressin Putting on/taking off footwear: 2 OT Site Safety Representative Goals Halfway Goals Time Frame: Oct 10, 2019 Eating (QC): 4 Oral Hygiene (QC): 4 Toileting Hygiene (QC): 3 (Min) Shower/Bathe Self (QC): 3 (min) Upper Body Dressing (QC): 3 (Min) Lower Body Dressing (QC): 3 (Min) On/Off Footwear (QC): 3 (MIn) Additional Goals: 1-Demonstrate ADL Tasks, 2-Verbalize Understanding, 3-ImproveStrength/Za 1=Demonstrate adherence to instructed precautions during ADL tasks. 2=Patient will verbalize/demonstrate understanding of assistive devices/modifications for ADL. 3=Patient will improve strength/tolerance for activity to enable patient to perform ADL's. OT Education/Plan Problem List/Assessment Assessment: Decreased Activ Tolerance, Decreased Safety Aware, Decreased UE Strength, Dependent Transfers, Impaired Bed Mobility, Impaired Cognition, Impaired Coordination, Impaired Funct Balance, Impaired I ADL's, Impaired Self- Care Skills, Restricted Funct UE ROM Discharge Recommendations Plan/Recommendations: Continue POC Therapy Discharge Recommendati: 24 Hour Supervision Treatment Plan/Plan of Care Treatment,Training & Education: Yes Patient would benefit from OT for education, treatment and training to promote independence in ADL's, mobility, safety and/or upper extremity function for ADL's. Plan of Care: ADL Retraining, Caregiver Training, Functional Mobility, Group Exercise/Act as Ind, UE Funct Exercise/Act Treatment Duration: Oct 10, 2019 Frequency: At least 5 of 7 days/Wk (IRF) Estimated Hrs Per Day: 1.5 hours per day Agreement: Yes Rehab Potential: Guarded Time/GCodes Start Time: 08:45 Stop Time: 10:00 Total Time Billed (hr/min): 75 Billed Treatment Time [id number] 1, ADL x 15 minutes (OT only) 8443-6026 ADL x 30 minutes, EX x 30 minutes (Co-treatment with PT. Please see above note for designated roles.) TERESE REYNOSO OT Sep 27, 2019 10:33
[2019-09-27] MEDS: ACETAMINOPHEN 325 MG TABLET PO PRN (10:44)
--- NOTE | 2019-09-27 13:48 | Physical Therapy Daily Note ---
PT Daily Note-Current Subjective Pt in recliner upon arrival and agrees to tx. Mental Status Patient Orientation: Person, Time Transfers SCALE: Activities may be completed with or without assistive devices. 3-Lnzpncpeab-dgbdqjp completes the activity by him/herself with no assistance from a helper. 5-Set-up or Clean-up Assistance-helper sets up or cleans up; patient completes activity. [place] assists only prior to or following the activity. 4-Supervision or Touching Assistance-helper provides verbal cues and/or touching/steadying and/or contact guard assistance as patient completes activity. Assistance may be provided throughout the activity or intermittently. 3-Partial/Moderate Assistance-helper does LESS THAN HALF the effort. [place] lifts, holds or supports trunk or limbs, but provides less than half the effort. 2-Substantial/Maximal Assistance-helper does MORE THAN HALF the effort. [place] lifts or holds trunk or limbs and provides more than half the effort. 7-Mlnhohyjj-nstctk does ALL the effort. Patient does none of the effort to complete the activity. Or, the assistance of 2 or more helpers is required for the patient to complete the activity. If activity was not attempted, code reason: 7-Patient Refused. 9-Not Applicable-not attempted and the patient did not perform the activity before the current illness, exacerbation or injury. 10-Not Attempted due to Environmental Limitations-(lack of equipment, weather restraints, etc.). 88-Not Attempted due to Medical Conditions or Safety Concerns. Roll Left & Right (QC): 2 Sit to Lying (QC): 2 Sit to Stand (QC): 1 Chair/Rdt-qx-Thjyd Xfer(QC): 1 Weight Bearing Right Lower Extremity: Right Non Weight Bearing Left Lower Extremity: Left Full Weight Bearing Gait Training Does the Patient Walk?: No and Walking Goal NOT indicated Exercises Supine Ex: Ankle pumps, Quad Set, Straight leg raise, Hip abd/add Supine Reps: 10 Treatments Pt transferred from recliner to bed MaxA x2. Pt performed supine exercises. Pt placed on bed contreras at end of tx with nursing notified. Pt left in bed with call light in hand. Assessment Current Status: Fair Progress Pt lacks focus and is distracted easily. Pt needs max VC and TC to keep focused. PT Short Term Goals Short Term Goals Time Frame: Sep 26, 2019 Roll Left & Right: 2 Sit to lyin Lying to sitting on side of be: 2 Sit to stand: 2 Chair/qnu-wl-iniqm transfer: 2 PT [place]ado Chaser Goals Group Home Goals PT Group Home Goals Time Frame: Oct 10, 2019 Roll Left & Right (QC): 3 Sit to Lying (QC): 3 Lying-Sitting on Side/Bed(QC): 3 Sit to Stand (QC): 3 Chair/Qnf-kz-Clrzn Xfer(QC): 3 Toilet Transfer (QC): 3 Car Transfer (QC): 3 Does the Patient Walk: No and Walking Goal NOT indicated Walk 10 feet (QC): 88 Walk 50ft with 2 Turns (QC): 88 Walk 150 ft (QC): 88 Walking 10ft on Uneven Surface: 88 1 Step (curb) (QC): 88 4 Steps (QC): 88 12 Steps (QC): 88 Picking up an Object (QC): 88 Wheel 50 feet with 2 turns (QC: 4 Wheel 150 feet: 4 PT Plan Problem List Problem List: Activity Tolerance, Functional Strength, Safety, Balance, Transfer, Bed Mobility, ROM Treatment/Plan Treatment Plan: Continue Plan of Care Treatment Plan: Bed Mobility, Education, Functional Activity Za, Functional Strength, Group Therapy, Gait, Safety, Therapeutic Exercise, Transfers Treatment Duration: Oct 10, 2019 Frequency: At least 5 of 7 days/Wk (IRF) Estimated Hrs Per Day: 1.5 hours per day Patient and/or Family Agrees t: Yes Safety Risks/Education Patient Education: Transfer Techniques, Correct Positioning, Safety Issues Teaching Recipient: Patient Teaching Methods: Demonstration, Discussion Response to Teaching: Reinforcement Needed Time/GCodes Time In: 1315 Time Out: 1330 Total Billed Treatment Time: 15 Total Billed Treatment 1, Ex DEE MADRID TECHNICAL INFORMATION SPECIALIST Sep 27, 2019 13:48
--- NOTE | 2019-09-27 13:56 | NUR ---
"RD ASSESSMENT PMHx: hypercholesterolemia; HTN; dementia; chronic-UTI; GERD; diverticulosis; irritable bowel; current - R BKA PT INTERACTION: Pt was awake and pleasant during nutrition follow-up. Note pt has AMS and is hard of hearing. Pt states she has been eating pretty good since last assessment. Note avg PO 30% x4d, per chart review. Pt states issues with nausea, vomiting, constipation, and diarrhea since last assessment. Note last BM was 09/23 and pt currently on bowel regimen of colace BID; senna BID; and miralax BID, per chart review. ABNORMAL NUTRITION-RELATED LAB VALUES LOW: Na 132; cr 0.57; Ca 8.1; Pro 5.1; alb 2.6 HIGH: glu 121 Est. kcal needs: 7535-9572 kcal | 25-30 kcal/kg Est. Pro needs: 54-65 g Pro | 1.0-1.2 g Pro/kg PES STATEMENT: Inadequate oral intake (NI-2.1) related to loss of appetite | nausea | vomiting | constipation | diarrhea as evidenced by pt interview | avg PO intake 30% x4d INTERVENTION: Continue with current diet order of DYS3 Advanced diet, with modifier of Dry Trays. Continue with current supplementation of Ensure Enlive with meals TID, for increased kcal intake. Provides 350 kcal and 13 g Pro per serving. Encouraged pt to eat when able. Will continue to follow and reassess as pt needs, intake, and status change. MONITOR/EVALUATE: PO Intake; Plan of Care; Hydration Status; Weight Status; Lab Values Michael Sorto, MS, RD, LD"
[2019-09-27 18:00] VITALS: BP 162/69
--- NOTE | 2019-09-27 19:13 | NUR ---
bedside report received from HAMIDA WALSH, assume care of pt
[2019-09-27] MEDS: SIMvastatin 20 MG (ZOCOR) TAB PO SCH (21:35)
--- NOTE | 2019-09-27 21:35 | NUR ---
pt took all of her laxatives tonight as has not had BM since 09/23
[2019-09-27] MEDS: SERTRALINE 50 MG (ZOLOFT) TABLET PO SCH (21:38)
[2019-09-28] MEDS: ONDANSETRON 4 MG (ZOFRAN) ORAL DISSOLVE TAB PO PRN ×2 (02:01→08:36)
[2019-09-28 04:52] LABS: BASOPHILS % (AUTO) 0 % (0-10); EOSINOPHILS # (AUTO) 0.1 10^3/uL (0.0-0.3); EOSINOPHILS % (AUTO) 0 % (0-10); HEMATOCRIT 25 % (35-52); HEMOGLOBIN 8.4 G/DL (11.5-16.0); LYMPHOCYTES # (AUTO) 1.4 X 10^3 (1.0-4.0); LYMPHOCYTES % (AUTO) 8 % (12-44); MEAN CORPUSCULAR HEMOGLOBIN 32 PG (25-34); MEAN CORPUSCULAR HGB CONC 34 G/DL (32-36); MEAN CORPUSCULAR VOLUME 96 FL (80-99); MEAN PLATELET VOLUME 10.3 FL (7.4-10.4); MONOCYTES # (AUTO) 1.2 X 10^3 (0.0-1.0); MONOCYTES % (AUTO) 6 % (0-12); NEUTROPHILS % (AUTO) 86 % (42-75); PLATELET COUNT 518 10^3/uL (130-400); WHITE BLOOD COUNT 18.7 10^3/uL (4.3-11.0)
[2019-09-28 05:09] LABS: ALBUMIN 2.6 GM/DL (3.2-4.5); CHLORIDE 99 MMOL/L (98-107); POTASSIUM 3.9 MMOL/L (3.6-5.0); SODIUM 132 MMOL/L (135-145)
[2019-09-28 05:10] LABS: CALCIUM 8.1 MG/DL (8.5-10.1)
[2019-09-28 05:11] LABS: GLUCOSE 102 MG/DL (70-105); TOTAL PROTEIN 5.3 GM/DL (6.4-8.2)
[2019-09-28 05:12] LABS: CARBON DIOXIDE 22 MMOL/L (21-32)
[2019-09-28 05:13] LABS: BILIRUBIN,TOTAL 0.3 MG/DL (0.1-1.0)
[2019-09-28 05:15] LABS: ALKALINE PHOSPHATASE 60 U/L (40-136); CREATININE SERUM 0.58 MG/DL (0.60-1.30); GFR ESTIMATED > 60
[2019-09-28 05:16] LABS: BUN/CREATININE RATIO 14
[2019-09-28 05:18] LABS: ALANINE AMINOTRANSFERASE 12 U/L (0-55)
[2019-09-28 06:00] VITALS: BP 165/84
[2019-09-28] MEDS ORDERED: NF-NACL1GT PO (06:22)
[2019-09-28] MEDS ORDERED: SENN-20 PO (06:22)
[2019-09-28] MEDS ORDERED: SODI44SP2 (06:22)
[2019-09-28] MEDS ORDERED: TRM50T PO (06:22)
[2019-09-28] MEDS ORDERED: OXYC5SOL19 PO (06:22)
[2019-09-28] MEDS ORDERED: FLUT16SP22 NS (06:22)
[2019-09-28] MEDS ORDERED: ALPR0.254 PO (06:22)
[2019-09-28] MEDS ORDERED: ENOX30DI4 SC (06:22)
[2019-09-28] MEDS ORDERED: HYDR-3584 PO (06:22)
--- NOTE | 2019-09-28 06:23 | Discharge Inst-Skilled Nursing ---
Discharge Inst-Skilled NF Reconcile Patient Problems Problems Reviewed?: Yes Patient Instructions Patient Problems: Right BKA Dementia Fibromyalgia Anemia Goal: [place] Consult/Follow Up/Orders Follow Up Appt.: Dr Thomas PCP Skilled NF Admit to: Via [facility] Certification ([facility]) I certify that [facility] services are required to be given on an inpatient basis because of the above named patient's need for [facility] care on a continuing basis for the conditions(s) for which he/she was receiving inpatient hospital services prior to his/her transfer to the [facility]. [facility] Facility Order: Nursing Services, Pizza Delivery-Evaluate & Treat, Physical Therapy-Evaluate & Treat, Speech Language-Evaluate & Treat, Wound Care-Eval/Treat Oxygen Delivery Method: Room Air Discharge Diet: No Restrictions, Other Diet (fluid restriction 1200cc daily) Resuscitation Status: Do Not Resuscitate New & Resume Previous Orders New Medications: Alprazolam (Alprazolam) 0.25 Mg Tablet 0.25 MG PO Q8H PRN for ANXIETY, #30 TAB Enoxaparin Sodium (Enoxaparin Sodium) 30 Mg/0.3 Ml Syringe 30 MG SC Q12HR for 30 Days, SYRINGE Fluticasone Propionate (Fluticasone Propionate) 16 Gm [place].susp 0 SPRAY NS DAILY for 30 Days, SPRAY Hydroxyzine HCl (Hydroxyzine HCl) 10 Mg Tablet 10 MG PO TID PRN for ANXIETY for 30 Days, TAB Oxycodone HCl (Oxycodone HCl) 5 Mg/5 Ml Solution 5 MG PO Q4H PRN for PAIN-SEVERE (8-10), #30 EA Sennosides/Docusate Sodium (Senna-Time S Tablet) 1 Each Tablet 1 EA PO DAILY for 30 Days, TAB Sodium Chloride (Sodium Chloride) 1 Gm Tab 2 GM PO BID for 30 Days, TAB Sodium Chloride (Deep Sea) 44 Ml [place] 0 ML NA DAILY for 30 Days, SPRAY Tramadol HCl (Tramadol HCl) 50 Mg Tablet 50 MG PO Q8HR PRN for PAIN-MODERATE (5-7), #30 TAB Continued Medications: Acetaminophen (Tylenol Extra Strength) 500 Mg Tablet 1000 MG PO HS, TAB Amlodipine Besylate/Benazepril (Lotrel 5-10 mg Capsule) 1 Each Capsule 1 EA PO 1000, CAP Aspirin (Aspir 81) 81 Mg Tablet.dr 81 MG PO DAILY, TAB Calcium Citrate/Vitamin D3 (Citracal + D Maximum [place]) 1 Each Tablet 1 EACH PO 1800, TAB Celecoxib (Celecoxib) 100 Mg Capsule 100 MG PO 1000,1800, CAP Cholecalciferol (Vitamin D3) (Vitamin D3) 10 Mcg Tablet 10 MCG PO DAILY, TAB Cranberry Fruit Concentrate (Azo Cranberry) 250 Mg Tab.chew 250 MG PO 1800, TAB Dicyclomine HCl (Dicyclomine HCl) 10 Mg Capsule 10 MG PO QIDACHS, CAP Docusate Sodium (Stool Softener) 100 Mg Capsule 100 MG PO 1800, CAP Guaifenesin (Guaifenesin) 400 Mg Tablet 400 MG PO DAILY, TAB Lactobacillus Acidophilus (Probiotic Acidophilus) 1.5 Mg Capsule 1.5 MG PO DAILY, CAP Levetiracetam (Levetiracetam) 250 Mg Tablet 250 MG PO BID, TAB Levothyroxine Sodium (Levothyroxine Sodium) 50 Mcg Tablet 50 MCG PO DAILY, TAB Loratadine (Loratadine) 10 Mg Tablet 10 MG PO DAILY, TAB Meclizine HCl (Meclizine HCl) 12.5 Mg Tablet 6.25-12.5 MG PO 1000,1800, TAB Melatonin/Pyridoxine HCl (B6) (Melatonin 5 mg Tablet) 1 Each Tablet 5 MG PO HS, TAB Nitroglycerin (Nitroglycerin) 0.4 Mg Tab.subl 0.4 MG SL UD PRN for CHEST PAIN, TAB Nitroglycerin (Nitroglycerin 0.6mg/HR Patch) 1 Each Patch.td24 1 EACH TD DAILY, PATCH Ondansetron HCl (Ondansetron HCl) 4 Mg Tablet 4 MG PO Q4H PRN for NAUSEA/VOMITING-1ST LINE, TAB Oxybutynin Chloride (Oxybutynin Chloride) 5 Mg Tablet 5 MG PO BID, TAB Pantoprazole Sodium (Protonix) 40 Mg Tablet.dr 40 MG PO 0700, TAB Pnv with Ca,No.72/Iron/FA (Pnv Plus Multivit Tab) 1 Each Tablet 1 EACH PO DAILY, TAB Potassium Chloride (Potassium Chloride) 10 Meq Capsule.er 10 MEQ PO BID, CAP Ranolazine (Ranexa) 1,000 Mg Tab.er.12h 1000 MG PO BID, TAB Sertraline HCl (Sertraline HCl) 25 Mg Tablet 25 MG PO HS, TAB Simvastatin (Simvastatin) 20 Mg Tablet 20 MG PO HS, TAB Ubidecarenone (Co Q10) 100 Mg Capsule 100 MG PO 1800, CAP Discontinued Medications: Furosemide (Furosemide) 20 Mg Tablet 20 MG PO [place],,,,,,[place], TAB TAKES 1 TAB 6 DAYS PER WEEK (THU,THU,THU,THU,THU,THU&THU) AND 2 TABS ON THURSDAY Furosemide (Lasix) 20 Mg Tablet 40 MG PO THU, TAB TAKES 1 TAB 6 DAYS PER WEEK (THU,THU,THU,THU,THU,THU&THU) AND 2 TABS ON THURSDAY Sodium Chloride (Sodium Chloride) 1,000 Mg Tablet.kwadwo 2000 MG PO BID, TAB take 2 (1000mg) tabs Tramadol HCl (Tramadol HCl) 50 Mg Tablet 25-50 MG PO TID PRN for PAIN-MILD (1-4), TAB take 1/2 to 1 (50mg) tab Vijaya Kohler Sep 28, 2019 06:22 VIJAYA KOHLER DO Sep 28, 2019 06:23
--- NOTE | 2019-09-28 06:24 | Discharge Summary ---
Diagnosis/Chief Complaint Date of Admission Sep 18, 2019 at 11:58 Date of Discharge Discharge Date: Sep 28, 2019 Discharge Diagnosis Assessment: Status post BKA 09/15/19 due to gangrene and osteomyelitis unsuccessful in revascularization at [facility] and [facility] Hyperkalemia-resolved Hyponatremia placed on fluid restriction and salt tablets baseline 131 Leukocytosis likely reactive no infection found on w/u- stable Coronary artery disease Hyperlipidemia Hypothyroidism Seizure disorder especially when hyponatremia worsens per son Seasonal allergies GERD Depression Bladder spasms DVT prophylaxis: Lovenox Plan: IRF protocol DC Fentanyl [employer] PO pain meds Dementia will slow recovery Fall risk ing risk Needs residential failing rehab Monitor closely Continue pain medication at discharge going to residential today Discharge Summary Discharge Physical Examination Allergies: Coded Allergies: Fish Containing Products (Unverified Allergy, Unknown, 07/17/14) TUNA from uncoded allergies Iodine and Iodide Containing Produc (Verified Allergy, Unknown, Rash, 09/14/19) adhesive tape (Verified Allergy, Unknown, 07/20/19) ciprofloxacin (Verified Allergy, Unknown, 07/20/19) morphine (Verified Allergy, Unknown, 08/28/05) Vitals & I&Os Vital Signs Date Time Temp Pulse Resp B/P (MAP) Pulse Ox O2 Delivery O2 Flow Rate FiO2 09/28/19 13:00 09/28/19 08:00 Room Air 09/28/19 06:00 36.6 96 20 96 General Appearance: Alert, Other (confused, chronically ill) Respiratory: Clear to Auscultation Cardiovascular: Regular Rate Hospital Course Was the Problem List Reviewed?: Yes Hospital course: Pt had an uneventful hospital course for eleven days while in inpatient rehab after undergoing a right below the knee amputation due to severity of osteomyelitis and peripheral vascular disease. Her dementia and presbycusis limited any type of recovery. She was monitored from a clinical standpoint, no significant events occurred, she was placed on Levaquin and that was completed before discharge for wound incision-site drainage by Dr. Thomas. Bowels returned back to normal after laxatives. Pain was well controlled during the hospital stay and overall she will be discharged in stable condition to [facility] for skilled care but overall prognosis remains extremely poor. Labs (last 24 hrs) Laboratory Tests 09/19/19 05:13: White Blood Count 16.9H, Red Blood Count 2.35L, Hemoglobin 7.6L, Hematocrit 23L, Mean Corpuscular Volume 98, Mean Corpuscular Hemoglobin 32, Mean Corpuscular Hemoglobin Concent 33, Red Cell Distribution Width 12.4, Platelet Count 198, Mean Platelet Volume 11.6H, Neutrophils (%) (Auto) 86H, Lymphocytes (%) (Auto) 6L, Monocytes (%) (Auto) 8, Eosinophils (%) (Auto) 0, Basophils (%) (Auto) 0, Neutrophils # (Auto) 14.5H, Lymphocytes # (Auto) 1.0, Monocytes # (Auto) 1.4H, Eosinophils # (Auto) 0.0, Basophils # (Auto) 0.0, Sodium Level 131L, Potassium Level 3.9, Chloride Level 102, Carbon Dioxide Level 20L, Anion Gap 9, Blood Urea Nitrogen 12, Creatinine 0.60, Estimat Glomerular Filtration Rate > 60, BUN/Creatinine Ratio 20, Glucose Level 100, Calcium Level 8.1L, Corrected Calcium 9.1, Iron Level 12L, Total Bilirubin 0.3, Aspartate Amino Transf (AST/SGOT) 27, Alanine Aminotransferase (ALT/SGPT) 10, Alkaline Phosphatase 46, Total Protein 5.0L, Albumin 2.7L, Thyroid Stimulating Hormone (TSH) 2.06 09/20/19 12:10: White Blood Count 16.5H, Red Blood Count 2.26L, Hemoglobin 7.4L, Hematocrit 22L, Mean Corpuscular Volume 98, Mean Corpuscular Hemoglobin 33, Mean Corpuscular Hemoglobin Concent 34, Red Cell Distribution Width 12.3, Platelet Count 241, Mean Platelet Volume 11.4H, Neutrophils (%) (Auto) 86H, Lymphocytes (%) (Auto) 5L, Monocytes (%) (Auto) 9, Eosinophils (%) (Auto) 0, Basophils (%) (Auto) 0, Neutrophils # (Auto) 14.2H, Lymphocytes # (Auto) 0.8L, Monocytes # (Auto) 1.5H, Eosinophils # (Auto) 0.0, Basophils # (Auto) 0.0, Sodium Level 131L, Potassium Level 3.9, Chloride Level 100, Carbon Dioxide Level 23, Anion Gap 8, Blood Urea Nitrogen 13, Creatinine 0.62, Estimat Glomerular Filtration Rate > 60, BUN/Creatinine Ratio 21, Glucose Level 84, Calcium Level 8.3L, Corrected Calcium 9.3, Total Bilirubin 0.4, Aspartate Amino Transf (AST/SGOT) 24, Alanine Aminotransferase (ALT/SGPT) 11, Alkaline Phosphatase 49, Total Protein 5.3L, Albumin 2.8L, Lactic Acid Level 0.83, Procalcitonin 0.15H 09/27/19 04:35: White Blood Count 20.0H, Red Blood Count 2.43L, Hemoglobin 7.8L, Hematocrit 24L, Mean Corpuscular Volume 97, Mean Corpuscular Hemoglobin 32, Mean Corpuscular Hemoglobin Concent 33, Red Cell Distribution Width 13.2, Platelet Count 444H, Mean Platelet Volume 10.4, Neutrophils (%) (Auto) 83H, Lymphocytes (%) (Auto) 9L , Monocytes (%) (Auto) 8, Eosinophils (%) (Auto) 0, Basophils (%) (Auto) 0, Neutrophils # (Auto) 16.7H, Lymphocytes # (Auto) 1.7, Monocytes # (Auto) 1.6H, Eosinophils # (Auto) 0.0, Basophils # (Auto) 0.0, Sodium Level 132L, Potassium Level 3.9, Chloride Level 99, Carbon Dioxide Level 23, Anion Gap 10, Blood Urea Nitrogen 8, Creatinine 0.57L, Estimat Glomerular Filtration Rate > 60, BUN/Creatinine Ratio 14, Glucose Level 121H, Calcium Level 8.1L, Corrected Calcium 9.2, Total Bilirubin 0.3, Aspartate Amino Transf (AST/SGOT) 21, Alanine Aminotransferase (ALT/SGPT) 11, Alkaline Phosphatase 58, Total Protein 5.1L, Albumin 2.6L, Neutrophils % (Manual) 85, Lymphocytes % (Manual) 7, Monocytes % (Manual) 8, Hypochromasia MODERATE, Poikilocytosis SLIGHT, Anisocytosis SLIGHT 09/28/19 04:35: White Blood Count 18.7H, Red Blood Count 2.61L, Hemoglobin 8.4L, Hematocrit 25L, Mean Corpuscular Volume 96, Mean Corpuscular Hemoglobin 32, Mean Corpuscular Hemoglobin Concent 34, Red Cell Distribution Width 13.0, Platelet Count 518H, Mean Platelet Volume 10.3, Neutrophils (%) (Auto) 86H, Lymphocytes (%) (Auto) 8L , Monocytes (%) (Auto) 6, Eosinophils (%) (Auto) 0, Basophils (%) (Auto) 0, Neutrophils # (Auto) 16.0H, Lymphocytes # (Auto) 1.4, Monocytes # (Auto) 1.2H, Eosinophils # (Auto) 0.1, Basophils # (Auto) 0.0, Sodium Level 132L, Potassium Level 3.9, Chloride Level 99, Carbon Dioxide Level 22, Anion Gap 11, Blood Urea Nitrogen 8, Creatinine 0.58L, Estimat Glomerular Filtration Rate > 60, BUN/Creatinine Ratio 14, Glucose Level 102, Calcium Level 8.1L, Corrected Calcium 9.2, Total Bilirubin 0.3, Aspartate Amino Transf (AST/SGOT) 23, Alanine Aminotransferase (ALT/SGPT) 12, Alkaline Phosphatase 60, Total Protein 5.3L, Albumin 2.6L, Lactic Acid Level 0.72, Procalcitonin 0.10H Pending Labs Laboratory Tests 09/19/19 05:13: White Blood Count 16.9, Red Blood Count 2.35, Hemoglobin 7.6, Hematocrit 23, Mean Corpuscular Volume 98, Mean Corpuscular Hemoglobin 32, Mean Corpuscular Hemoglobin Concent 33, Red Cell Distribution Width 12.4, Platelet Count 198, Mean Platelet Volume 11.6, Neutrophils (%) (Auto) 86, Lymphocytes (%) (Auto) 6, Monocytes (%) (Auto) 8, Eosinophils (%) (Auto) 0, Basophils (%) (Auto) 0, Neutrophils # (Auto) 14.5, Lymphocytes # (Auto) 1.0, Monocytes # (Auto) 1.4, Eosinophils # (Auto) 0.0, Basophils # (Auto) 0.0, Sodium Level 131, Potassium Level 3.9, Chloride Level 102, Carbon Dioxide Level 20, Anion Gap 9, Blood Urea Nitrogen 12, Creatinine 0.60, Estimat Glomerular Filtration Rate > 60, BUN/Creatinine Ratio 20, Glucose Level 100, Calcium Level 8.1, Corrected Calcium 9.1, Iron Level 12, Total Bilirubin 0.3, Aspartate Amino Transf (AST/SGOT) 27, Alanine Aminotransferase (ALT/SGPT) 10, Alkaline Phosphatase 46, Total Protein 5.0, Albumin 2.7, Thyroid Stimulating Hormone (TSH) 2.06 09/20/19 12:10: White Blood Count 16.5, Red Blood Count 2.26, Hemoglobin 7.4, Hematocrit 22, Mean Corpuscular Volume 98, Mean Corpuscular Hemoglobin 33, Mean Corpuscular Hemoglobin Concent 34, Red Cell Distribution Width 12.3, Platelet Count 241, Mean Platelet Volume 11.4, Neutrophils (%) (Auto) 86, Lymphocytes (%) (Auto) 5, Monocytes (%) (Auto) 9, Eosinophils (%) (Auto) 0, Basophils (%) (Auto) 0, Neutrophils # (Auto) 14.2, Lymphocytes # (Auto) 0.8, Monocytes # (Auto) 1.5, Eosinophils # (Auto) 0.0, Basophils # (Auto) 0.0, Sodium Level 131, Potassium Level 3.9, Chloride Level 100, Carbon Dioxide Level 23, Anion Gap 8, Blood Urea Nitrogen 13, Creatinine 0.62, Estimat Glomerular Filtration Rate > 60, BUN/Creatinine Ratio 21, Glucose Level 84, Calcium Level 8.3, Corrected Calcium 9.3, Total Bilirubin 0.4, Aspartate Amino Transf (AST/SGOT) 24, Alanine Aminotransferase (ALT/SGPT) 11, Alkaline Phosphatase 49, Total Protein 5.3, Albumin 2.8, Lactic Acid Level 0.83, Procalcitonin 0.15 09/27/19 04:35: White Blood Count 20.0, Red Blood Count 2.43, Hemoglobin 7.8, Hematocrit 24, Mean Corpuscular Volume 97, Mean Corpuscular Hemoglobin 32, Mean Corpuscular Hemoglobin Concent 33, Red Cell Distribution Width 13.2, Platelet Count 444, Mean Platelet Volume 10.4, Neutrophils (%) (Auto) 83, Lymphocytes (%) (Auto) 9, Monocytes (%) (Auto) 8, Eosinophils (%) (Auto) 0, Basophils (%) (Auto) 0, Neutrophils # (Auto) 16.7, Lymphocytes # (Auto) 1.7, Monocytes # (Auto) 1.6, Eosinophils # (Auto) 0.0, Basophils # (Auto) 0.0, Sodium Level 132, Potassium Level 3.9, Chloride Level 99, Carbon Dioxide Level 23, Anion Gap 10, Blood Urea Nitrogen 8, Creatinine 0.57, Estimat Glomerular Filtration Rate > 60, BUN/Creatinine Ratio 14, Glucose Level 121, Calcium Level 8.1, Corrected Calcium 9.2, Total Bilirubin 0.3, Aspartate Amino Transf (AST/SGOT) 21, Alanine Aminotransferase (ALT/SGPT) 11, Alkaline Phosphatase 58, Total Protein 5.1, Albumin 2.6, Neutrophils % (Manual) 85, Lymphocytes % (Manual) 7, Monocytes % (Manual) 8, Hypochromasia MODERATE, Poikilocytosis SLIGHT, Anisocytosis SLIGHT 09/28/19 04:35: White Blood Count 18.7, Red Blood Count 2.61, Hemoglobin 8.4, Hematocrit 25, Mean Corpuscular Volume 96, Mean Corpuscular Hemoglobin 32, Mean Corpuscular Hemoglobin Concent 34, Red Cell Distribution Width 13.0, Platelet Count 518, Mean Platelet Volume 10.3, Neutrophils (%) (Auto) 86, Lymphocytes (%) (Auto) 8, Monocytes (%) (Auto) 6, Eosinophils (%) (Auto) 0, Basophils (%) (Auto) 0, Neutrophils # (Auto) 16.0, Lymphocytes # (Auto) 1.4, Monocytes # (Auto) 1.2, Eosinophils # (Auto) 0.1, Basophils # (Auto) 0.0, Sodium Level 132, Potassium Level 3.9, Chloride Level 99, Carbon Dioxide Level 22, Anion Gap 11, Blood Urea Nitrogen 8, Creatinine 0.58, Estimat Glomerular Filtration Rate > 60, BUN/Creatinine Ratio 14, Glucose Level 102, Calcium Level 8.1, Corrected Calcium 9.2, Total Bilirubin 0.3, Aspartate Amino Transf (AST/SGOT) 23, Alanine Aminotransferase (ALT/SGPT) 12, Alkaline Phosphatase 60, Total Protein 5.3, Albumin 2.6, Lactic Acid Level 0.72, Procalcitonin 0.10 Discharge Home Medications: Active Scripts Active Senna-Time S Tablet (Sennosides/Docusate Sodium) 1 Each Tablet 1 Ea PO DAILY 30 Days Deep Sea (Sodium Chloride) 44 Ml [place] 0 Ml NA DAILY 30 Days Fluticasone Propionate 16 Gm [place].susp 0 [place] NS DAILY 30 Days Sodium Chloride 1 Gm Tab 2 Gm PO BID 30 Days Hydroxyzine HCl 10 Mg Tablet 10 Mg PO TID PRN 30 Days Alprazolam 0.25 Mg Tablet 0.25 Mg PO Q8H PRN Tramadol HCl 50 Mg Tablet 50 Mg PO Q8HR PRN Oxycodone HCl 5 Mg/5 Ml Solution 5 Mg PO Q4H PRN Enoxaparin Sodium 30 Mg/0.3 Ml Syringe 30 Mg SC Q12HR 30 Days Reported Stool Softener (Docusate Sodium) 100 Mg Capsule 100 Mg PO 1800 Citracal + D Maximum Caplet (Calcium Citrate/Vitamin D3) 1 Each Tablet 1 Each PO 1800 Ondansetron HCl 4 Mg Tablet 4 Mg PO Q4H PRN Celecoxib 100 Mg Capsule 100 Mg PO 1000,1800 Protonix (Pantoprazole Sodium) 40 Mg Tablet.dr 40 Mg PO 0700 Dicyclomine HCl 10 Mg Capsule 10 Mg PO QIDACHS Lotrel 5-10 mg Capsule (Amlodipine Besylate/Benazepril) 1 Each Capsule 1 Ea PO 1000 Levetiracetam 250 Mg Tablet 250 Mg PO BID Meclizine HCl 12.5 Mg Tablet 6.25-12.5 Mg PO 1000,1800 Probiotic Acidophilus (Lactobacillus Acidophilus) 1.5 Mg Capsule 1.5 Mg PO DAILY Vitamin D3 (Cholecalciferol (Vitamin D3)) 10 Mcg Tablet 10 Mcg PO DAILY Simvastatin 20 Mg Tablet 20 Mg PO HS Pnv Plus Multivit Tab (Pnv with Ca,No.72/Iron/FA) 1 Each Tablet 1 Each PO DAILY Ranexa (Ranolazine) 1,000 Mg Tab.er.12h 1,000 Mg PO BID Nitroglycerin 0.6mg/HR Patch (Nitroglycerin) 1 Each Patch.td24 1 Each TD DAILY Nitroglycerin 0.4 Mg Tab.subl 0.4 Mg SL UD PRN Loratadine 10 Mg Tablet 10 Mg PO DAILY Co Q10 (Ubidecarenone) 100 Mg Capsule 100 Mg PO 1800 Melatonin 5 mg Tablet (Melatonin/Pyridoxine HCl (B6)) 1 Each Tablet 5 Mg PO HS Levothyroxine Sodium 50 Mcg Tablet 50 Mcg PO DAILY Tylenol Extra Strength (Acetaminophen) 500 Mg Tablet 1,000 Mg PO HS Sertraline HCl 25 Mg Tablet 25 Mg PO HS Potassium Chloride 10 Meq Capsule.er 10 Meq PO BID Oxybutynin Chloride 5 Mg Tablet 5 Mg PO BID Guaifenesin 400 Mg Tablet 400 Mg PO DAILY Azo Cranberry (Cranberry Fruit Concentrate) 250 Mg Tab.chew 250 Mg PO 1800 Aspir 81 (Aspirin) 81 Mg Tablet.dr 81 Mg PO DAILY Instructions to patient/family Please see electronic discharge instructions given to patient. 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
[2019-09-28] MEDS: CATHETER FLUSH 10 ML SYR IV SCH (06:42)
[2019-09-28] MEDS: LEVOTHYROXINE 50 MCG (LEVOTHROID) TAB PO SCH (06:43)
--- NOTE | 2019-09-28 09:38 | Therapy Team Discharge Summary ---
Therapy Discharge Summary Discharge Recommendations Date of Discharge 09-28-19 Therapy D/C Recommendations: 24 hr Supervision, Half-Way (TCU/NH) Occupational Therapy Pt. has been seen by occupational therapy to increase overall strength and independence with daily skills. Pt. requires max/dependent assist with most skills, with exception of feeding/oral hygiene. Pt. requires max encouragement to participate at times. Communication is difficult due to pt. being [place]. Pt. is discharging to [facility] for continued skilled care. All equipment needs will be addressed at that facility. Recommend continued occupational therapy as pt. tolerates to increase overall strength. Decreased Activ Tolerance, Decreased Safety Aware, Decreased UE Strength, Dependent Transfers, Impaired Bed Mobility, Impaired Cognition, Impaired Coordination, Impaired Funct Balance, Impaired I ADL's, Impaired Self-Care Skills, Restricted Funct UE ROM PT [employer] Goals [employer] Goals PT [facility] Goals Time Frame: Oct 10, 2019 Roll Left to Right (QC): 3 Sit to Lying (QC): 3 Lying-Sitting on Side/Bed(QC): 3 Sit to Stand (QC): 3 Chair/Ugr-oj-Kvuce Xfer(QC): 3 Car Transfer (QC): 3 Does the Patient Walk: No and Walking Goal NOT indicated Walk 10 feet (QC): 88 Walk 10ft-Uneven Surface(QC): 88 Walk 50ft with 2 Turns (QC): 88 Walk 150 ft (QC): 88 Wheel 50 feet with 2 turns (QC: 4 1 Step (curb) (QC): 88 4 Steps (QC): 88 12 Steps (QC): 88 Picking up an Object (QC): 88 OT [facility] Goals [facility] Goals Time Frame: Oct 10, 2019 Eating (FIM): 6 (not met) Eating (QC): 4 (met) Oral Hygiene (QC): 4 (met) Shower/Bathe Self (QC): 3 (goal is for min assist.Not met) Upper Body Dressing (QC): 3 (goal is for Min assist.Not met) Lower Body Dressing (QC): 3 (Goal is for Min assist.not met) On/Off Footwear (QC): 3 (MIn) Toileting(FIM): 6 (not met) Toileting Hygiene (QC): 3 (Goal is for Min assist.Not met) Toilet/Commode Transfer (QC): 3 (Not met) Additional Goals: 1-Demonstrate ADL Tasks, 2-Verbalize Understanding, 3- ImproveStrength/Za 1=Demonstrate adherence to instructed precautions during ADL tasks. 2=Patient will verbalize/demonstrate understanding of assistive devices/mo difications for ADL. 3=Patient will improve strength/tolerance for activity to enable patient to perform ADL's. Speech [facility] Goals [facility] Goals Patient will improve cognitive-communication necessary for safety and daily living tasks with minimal assist. TERESE REYNOSO OT Sep 28, 2019 09:38
--- NOTE | 2019-09-28 09:47 | Therapy Team Discharge Summary ---
Therapy Discharge Summary Discharge Recommendations Date of Discharge Therapy D/C Recommendations: 24 hr Supervision, Residential (TCU/NH) Occupational Therapy Decreased Activ Tolerance, Decreased Safety Aware, Decreased UE Strength, Dependent Transfers, Impaired Bed Mobility, Impaired Cognition, Impaired Coordination, Impaired Funct Balance, Impaired I ADL's, Impaired Self-Care Skills, Restricted Funct UE ROM Speech-Language Pathology Patient was admitted to the ARU s/p BKA. Patient received skilled ST based on SLUMS score and patient's decreased cognitive function. Patient made some progress but did not meet ST goals. Patient is discharging to SNF this date for more rehab and nursing care. PT [employer] Goals [employer] Goals PT [employer] Goals Time Frame: Oct 10, 2019 Roll Left to Right (QC): 3 Sit to Lying (QC): 3 Lying-Sitting on Side/Bed(QC): 3 Sit to Stand (QC): 3 Chair/Bzl-hd-Ojiki Xfer(QC): 3 Car Transfer (QC): 3 Does the Patient Walk: No and Walking Goal NOT indicated Walk 10 feet (QC): 88 Walk 10ft-Uneven Surface(QC): 88 Walk 50ft with 2 Turns (QC): 88 Walk 150 ft (QC): 88 Wheel 50 feet with 2 turns (QC: 4 1 Step (curb) (QC): 88 4 Steps (QC): 88 12 Steps (QC): 88 Picking up an Object (QC): 88 OT [employer] Goals Longterm Goals Time Frame: Oct 10, 2019 Eating (FIM): 6 (not met) Eating (QC): 4 (met) Oral Hygiene (QC): 4 (met) Shower/Bathe Self (QC): 3 (goal is for min assist.Not met) Upper Body Dressing (QC): 3 (goal is for Min assist.Not met) Lower Body Dressing (QC): 3 (Goal is for Min assist.not met) On/Off Footwear (QC): 3 (MIn) Toileting(FIM): 6 (not met) Toileting Hygiene (QC): 3 (Goal is for Min assist.Not met) Toilet/Commode Transfer (QC): 3 (Not met) Additional Goals: 1-Demonstrate ADL Tasks, 2-Verbalize Understanding, 3- ImproveStrength/Za 1=Demonstrate adherence to instructed precautions during ADL tasks. 2=Patient will verbalize/demonstrate understanding of assistive devices/modifications for ADL. 3=Patient will improve strength/tolerance for activity to enable patient to perform ADL's. Speech [employer] Goals [employer] Goals Patient will improve cognitive-communication necessary for safety and daily living tasks with minimal assist. JUAN ALBERTO GALVAN Sep 28, 2019 09:47
[2019-09-28] MEDS: OXYBUTYNIN (DITROPAN) 5 MG TAB PO SCH (09:53)
[2019-09-28] MEDS: LEVETIRACETAM 500 MG (KEPPRA) TAB PO SCH (09:53)
[2019-09-28] MEDS: ASPIRIN E.C. 81 MG (ECOTRIN) TAB PO SCH (09:54)
[2019-09-28] MEDS: RANOLAZINE ER 500 MG TAB (RANEXA) PO SCH (09:54)
[2019-09-28] MEDS: FLUTICASONE NASAL SPRAY (FLONASE) 16 GM BTL NS SCH (09:55)
[2019-09-28] MEDS: LORATADINE (CLARITIN) 10 MG TAB PO SCH (09:55)
[2019-09-28] MEDS: guaiFENesin (MUCINEX) 600 MG TAB PO SCH (09:55)
[2019-09-28] MEDS: SALINE NASAL SPRAY (OCEAN) 45 ML BTL SCH (09:55)
[2019-09-28] MEDS: PANTOPRAZOLE 40 MG (PROTONIX) TAB PO SCH (09:55)
[2019-09-28] MEDS: MUPIROCIN 2% OINT 22 GM (BACTROBAN) TUBE TOP SCH (09:56)
[2019-09-28] MEDS: ENOXAPARIN 30 MG/0.3 ML (LOVENOX) SYR SC SCH (09:56)
[2019-09-28] MEDS: SODIUM CHLORIDE 1 GM TABLET PO SCH (09:56)
[2019-09-28] MEDS: polyethylene glycoL POWDER 17 GM (MIRALAX) PACK PO SCH (10:02)
[2019-09-28] MEDS: DOCUSATE SODIUM 100 MG (COLACE) CAP PO SCH (10:02)
[2019-09-28] MEDS: SENNA W/DOCUSATE (SENOKOT S) TABLET PO SCH (10:02)
--- NOTE | 2019-09-28 10:46 | Therapy Team Discharge Summary ---
Therapy Discharge Summary Discharge Recommendations Date of Discharge 09/28/2019 Therapy D/C Recommendations: 24 hr Supervision, Intermediate (TCU/NH) Physical Therapy This patient admitted to ARU post right BKA. Prior to this event, pt was living at home with her spouse at a mod indep level. Upon admission to ARU, pt was dependent with bed mobilty and transfers, she is unable to ambulate. She required max assist with wc mobility. Treatment has focused on knee extensionROM, funcitonal strength and ROM to promote bed mobility and transfers; wc mobility training as well. She made slight gains but has not achieved goals. She is max assist with bed mobiltiy and transfers. She remains at max assist with wc mobilty. Pt does have potential to make gains with extended therapy services. Pt to discharge to [facility] and recommend continued skilled services. DC from ARU this date. Occupational Therapy Decreased Activ Tolerance, Decreased Safety Aware, Decreased UE Strength, Dependent Transfers, Impaired Bed Mobility, Impaired Cognition, Impaired Coordination, Impaired Funct Balance, Impaired I ADL's, Impaired Self-Care Skills, Restricted Funct UE ROM PT Custodial Goals Custodial Goals PT Custodial Goals Time Frame: Oct 10, 2019 Roll Left to Right (QC): 3 Sit to Lying (QC): 3 Lying-Sitting on Side/Bed(QC): 3 Sit to Stand (QC): 3 Chair/[place] Xfer(QC): 3 Car Transfer (QC): 3 Does the Patient Walk: No and Walking Goal NOT indicated Walk 10 feet (QC): 88 Walk 10ft-Uneven Surface(QC): 88 Walk 50ft with 2 Turns (QC): 88 Walk 150 ft (QC): 88 Wheel 50 feet with 2 turns (QC: 4 1 Step (curb) (QC): 88 4 Steps (QC): 88 12 Steps (QC): 88 Picking up an Object (QC): 88 Goals unmet OT [employer] Goals [employer] Goals Time Frame: Oct 10, 2019 Eating (FIM): 6 (not met) Eating (QC): 4 (met) Oral Hygiene (QC): 4 (met) Shower/Bathe Self (QC): 3 (goal is for min assist.Not met) Upper Body Dressing (QC): 3 (goal is for Min assist.Not met) Lower Body Dressing (QC): 3 (Goal is for Min assist.not met) On/Off Footwear (QC): 3 (MIn) Toileting(FIM): 6 (not met) Toileting Hygiene (QC): 3 (Goal is for Min assist.Not met) Toilet/Commode Transfer (QC): 3 (Not met) Additional Goals: 1-Demonstrate ADL Tasks, 2-Verbalize Understanding, 3- ImproveStrength/Za 1=Demonstrate adherence to instructed precautions during ADL tasks. 2=Patient will verbalize/demonstrate understanding of assistive devices/m odifications for ADL. 3=Patient will improve strength/tolerance for activity to enable patient to perform ADL's. Speech Custodial Goals Custodial Goals Patient will improve cognitive-communication necessary for safety and daily living tasks with minimal assist. ELLIOT SCHROEDER PT Sep 28, 2019 10:46
--- NOTE | 2019-09-28 12:29 | Progress Note ---
Subjective Date Seen by a Provider: Sep 28, 2019 Time Seen by a Provider: 12:20 Subjective/Events-last exam doing well. pain controlled. has tolerated rehab well. right bka stump intact, mild eccymosis, no redness/erythema/infxn. Focused Exam Lactate Level 09/28/19 04:35: Lactic Acid Level 0.72 Objective Exam Vital Signs Date Time Temp Pulse Resp B/P (MAP) Pulse Ox O2 Delivery O2 Flow Rate FiO2 09/28/19 08:00 Room Air 09/28/19 06:00 36.6 96 20 165/84 (111) 96 Room Air 09/27/19 21:40 Room Air 09/27/19 18:00 36.8 99 18 162/69 (100) 97 Room Air I & O 09/28/19 07:00 Intake Total 700 ml Output Total 350 ml Balance 350 ml Capillary Refill : Less Than 3 Seconds General Appearance: No Apparent Distress HEENT: PERRL/EOMI Neck: Full Range of Motion Respiratory: Chest Non Tender, Lungs Clear, Normal Breath Sounds Cardiovascular: Regular Rate, Rhythm Gastrointestinal: normal bowel sounds, non tender, soft Extremity: Slow Capillary Refill, Other (rt stump healing well. no redness/erythema) Neurologic/Psychiatric: Alert, Oriented x3 Skin: Normal Color Lymphatic: No Adenopathy Results Lab Laboratory Tests 09/28/19 04:35: White Blood Count 18.7H, Red Blood Count 2.61L, Hemoglobin 8.4L, Hematocrit 25L, Mean Corpuscular Volume 96, Mean Corpuscular Hemoglobin 32, Mean Corpuscular Hemoglobin Concent 34, Red Cell Distribution Width 13.0, Platelet Count 518H, Mean Platelet Volume 10.3, Neutrophils (%) (Auto) 86H, Lymphocytes (%) (Auto) 8L , Monocytes (%) (Auto) 6, Eosinophils (%) (Auto) 0, Basophils (%) (Auto) 0, Neutrophils # (Auto) 16.0H, Lymphocytes # (Auto) 1.4, Monocytes # (Auto) 1.2H, Eosinophils # (Auto) 0.1, Basophils # (Auto) 0.0, Sodium Level 132L, Potassium Level 3.9, Chloride Level 99, Carbon Dioxide Level 22, Anion Gap 11, Blood Urea Nitrogen 8, Creatinine 0.58L, Estimat Glomerular Filtration Rate > 60, BUN/Creatinine Ratio 14, Glucose Level 102, Lactic Acid Level 0.72, Calcium Level 8.1L, Corrected Calcium 9.2, Total Bilirubin 0.3, Aspartate Amino Transf (AST/SGOT) 23, Alanine Aminotransferase (ALT/SGPT) 12, Alkaline Phosphatase 60, Total Protein 5.3L, Albumin 2.6L, Procalcitonin 0.10H Assessment/Plan Assessment/Plan Assess & Plan/Chief 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 has tolerating therapy well and medically stable. wound healing well with eccymosis and no signs infxn. cont same wrap at all times. f/u in office in 2 weeks for staple removal. Clinical Quality Measures DVT/VTE Risk/Contraindication: Risk Factor Score Per Nursin RFS Level Per Nursing on Admit: 4+=Very High ERICH CLEMENTE MD Sep 28, 2019 12:29
--- NOTE | 2019-09-28 14:07 | NUR ---
CM/SS DISCHARGE Patient discharged as planned to new Medicare skilled placement with [facility] via their transport. As arranged, patient's spouse entered [facility] this a.m. under an assisted living status and they will quarantine/room together for the next two weeks in order to enable both to assimilate as a couple into this out of home environment. Faxed orders to [facility], prepared continuum of care packet to accompany patient. IMM2 and discharge was discussed with son/STEFFANIE Henry yesterday late afternoon. He has been instrumental in assisting with coordinate of this move for his parents, all are ready to move forward. No intention to appeal, noted, charted.
== END 2019-09-28 13:00 | DRG 560 ==
PROVIDERS: ADMIT Internal Medicine; ATTEND Internal Medicine
DX: Z47.81 Encounter for orthopedic aftercare following surgical amputation (principal); E87.1 Hypo-osmolality and hyponatremia; G54.6 Phantom limb syndrome with pain; Z89.511 Acquired absence of right leg below knee; I73.9 Peripheral vascular disease, unspecified; F03.90 Unspecified dementia, unspecified severity, without behavioral disturbance, psychotic disturbance, mood disturbance, and anxiety; I25.10 Atherosclerotic heart disease of native coronary artery without angina pectoris; D64.9 Anemia, unspecified; Z66 Do not resuscitate; F32.9 Major depressive disorder, single episode, unspecified; E78.5 Hyperlipidemia, unspecified; I10 Essential (primary) hypertension; N32.89 Other specified disorders of bladder; G40.909 Epilepsy, unspecified, not intractable, without status epilepticus; K21.9 Gastro-esophageal reflux disease without esophagitis; M19.91 Primary osteoarthritis, unspecified site; E03.9 Hypothyroidism, unspecified; F41.9 Anxiety disorder, unspecified; D72.829 Elevated white blood cell count, unspecified; J30.2 Other seasonal allergic rhinitis
CPT/HCPCS: 36415; 80053; 83540; 83605; 84145; 84443; 85007; 85025; 85027

== ENCOUNTER → 2019-11-30 | Outpatient (CLI) | payer OTHER, MEDICARE, MEDICAID ==
[~2019-11-30] MED LIST changes: -ACET-2715 PO; +ACET-3075 PO; +ACHD5005 PO; +ALPR.25T PO; +AMLO1CAP4 PO; -BISACODYL 10 MG SUPP (DULCOLAX) PR PRN; +CALC-696 PO; -CALCIUM CARBONATE 500 MG (TUMS) TAB.CHEW PO PRN; +CELE100C84 PO; +DICY10CA12 PO; +DOCU-238 PO; -DOCUSATE SODIUM 100 MG (COLACE) CAP PO PRN; -DOCUSATE SODIUM 100 MG (COLACE) CAP PO SCH; +ENOX30DI4 SC; -FLEET ENEMA ADULT 1 EA BTL PR PRN; +FURO-125 PO; +HYDR-3584 PO; -HYDR-83 PO; -LACTULOSE SYRUP 10GM/15ML (ENULOSE) 30ML UDC PO PRN; +LEVE250T5 PO; -LOPERAMIDE 2 MG (IMODIUM) TABLET PO PRN; +MECL-172 PO; +NF-NACL1GT PO; +ONDA-105 PO; +OXYC5SOL19 PO; +PANT40TA2 PO; -PANT40TA3 PO; +PANT40TA52 PO; +SENN-20 PO; -SENNA W/DOCUSATE (SENOKOT S) TABLET PO SCH; +SODI44SP2; +TRM50T PO; -diphenhydrAMINE 25 MG TAB (BENADRYL) PO PRN; -guaiFENesin/CODEINE (ROBITUSSIN AC) 10ML UDC PO PRN
== END ==
LOC: LABNPT 19:25
PROVIDERS: ATTEND Nurse Practitioner Family
DX: Z13.89 Encounter for screening for other disorder (principal)
CPT/HCPCS: 84145